=== PATIENT | female | born 1975 | race Caucasian/White ===

== ENCOUNTER 2016-11-14 16:20 | Emergency (ER) | payer MEDICARE, MEDICAID ==
[~2016-11-14] VITALS: Ht 152.4 cm; Wt 113.4 kg
[~2016-11-14 16:20] MED LIST: ALBU0.8322 IH; ALPR.25T; AMIT50TA3 PO; ASPI-892; ASPI-892 PO; ATOM100C PO; BUTA-234 PO; CALC600T12 PO; CEPH500C PO; CLIN-62; CYCL10TA9 PO; DARI7.5T8; DICY20TA10 PO; DICY20TA57 PO; ERGO400C PO; EST.625T; ESTR0.62 PO; FESO4TAB PO; HSC125B15 PO; HYDR-1231 PO; HYDR-3583 PO; HYDR-700; IBP800T PO; IBUP800T26; KCL20TCR PO; LAMO100T; LAMO100T69 PO; LORA-794 PO; LORA10CA PO; LORA10TA7; MECL-106 PO; MECL-124; MNTL10T; MONT10TA24 PO; MOXI400T PO; MTF500T PO; MULT1CAP27 PO; NAPR-243 PO; NAPR-247 PO; NF-ESOM40C; NF-SOLIF5T PO; NITR-65 PO; NST15C; OMEP20TA7 PO; PANT40TA2 PO; PENT100C5 PO; PHEN-633 PO; POTA20LI2 PO; PRM25T PO; SCR1T; SIMV10TA3 PO; SIMV20TA3 PO; TEMA15CA PO; TOPI100T2 PO; TPR100T; TPR25T; TRAM50TA2; VERA120T6 PO; VERA120T84 PO; [UNRECOGNIZED DRUG - CODE] PO; [UNRECOGNIZED DRUG - OTHER]
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
--- NOTE | 2016-11-14 16:54 | Diagnostic Imaging Report ---
PROCEDURE: CT head without contrast. TECHNIQUE: Multiple contiguous axial images were obtained through the brain without the use of intravenous contrast. INDICATION: Hit head on shelf. Pain. COMPARISON: 04/19/2014. FINDINGS: There is again noted encephalomalacia in the occipital lobes, bilaterally. No evidence of intracranial hemorrhage. No mass effect. No extra-axial fluid collection. Ventricles are not dilated. Basal cisterns are clear. CP angles are normal. Bone windows show the mastoid air cells and paranasal sinuses to be well-aerated and clear. No evidence of calvarial fractures. IMPRESSION: 1. Stable appearing encephalomalacia in the occipital lobes, bilaterally. 2. No acute changes have occurred. Dictated by: Dictated on workstation # [id number]
[2016-11-14] MEDS ORDERED: IBUPROFEN 800 MG (MOTRIN) TAB PO STA (17:01)
[2016-11-14 17:25] VITALS: BP 0/0
== END 2016-11-14 17:25 | disposition home or self-care (01) ==
LOC: EDUNIT# 16:20 → ER 16:21
DX: S09.90XA Unspecified injury of head, initial encounter (principal); W20.8XXA Other cause of strike by thrown, projected or falling object, initial encounter; Y99.8 Other external cause status
CPT/HCPCS: 70450; 99283

== ENCOUNTER → 2016-11-24 | Outpatient (CLI) | payer MEDICARE, MEDICAID ==
--- NOTE | 2016-11-24 13:51 | Diagnostic Imaging Report ---
Three views of the left shoulder. INDICATION: Left shoulder pain. FINDINGS: There is mild osteoarthritis in the AC joint with mild superior and inferior osteophytes. The glenohumeral joints appear unremarkable. There is an infusion port projecting over the left hemithorax. No fracture or dislocation seen. IMPRESSION: Mild osteoarthritis with small superior and inferior osteophytes along the AC joint. Dictated by: Dictated on workstation # [id number]
== END ==
LOC: RAD 11:43
PROVIDERS: ATTEND Registered Nurse
DX: M25.512 Pain in left shoulder (principal)
CPT/HCPCS: 73030

== ENCOUNTER → 2017-01-21 | Outpatient (CLI) | payer MEDICARE, MEDICAID ==
--- NOTE | 2017-01-24 09:22 | Diagnostic Imaging Report ---
Bilateral screening mammogram. The current study was also evaluated with a Computer Aided Detection (CAD) system. INDICATION: Screening. No current complaints stated on the questionnaire. COMPARISON: No prior studies are available for comparison. FINDINGS: The breasts are composed of scattered fibroglandular densities. Occasional benign-appearing calcifications are seen. An asymmetry measuring 6 mm in the medial aspect of the right breast is noted. The left breast demonstrates no definite mass, architectural distortion, or suspicious calcification. IMPRESSION: Focal compression view and ultrasound evaluation for medial right breast asymmetry is recommended. ACR BI-RADS Category 0: Incomplete. (Needs additional imaging evaluation). Result letter will be mailed to the patient. Note: At least 10% of breast cancer is not imaged by mammography. Dictated by: Dictated on workstation # [id number]
== END ==
LOC: RAD 12:49
PROVIDERS: ATTEND Family Medicine
DX: Z12.31 Encounter for screening mammogram for malignant neoplasm of breast (principal)
CPT/HCPCS: 77067

== ENCOUNTER 2017-02-16 12:30 | Outpatient (RCR) | payer MEDICARE, MEDICAID ==
[~2017-02-16] VITALS: Ht 152.4 cm; Wt 113.6 kg
[2017-02-16 13:33] VITALS: BP 120/77
== END 2017-05-17 | disposition home or self-care (01) ==
LOC: SDC 12:30
PROVIDERS: ATTEND Family Medicine
DX: Z45.2 Encounter for adjustment and management of vascular access device (principal); N64.89 Other specified disorders of breast
CPT/HCPCS: 96523

== ENCOUNTER → 2017-02-16 | Outpatient (CLI) | payer MEDICARE, MEDICAID ==
--- NOTE | 2017-02-16 13:35 | Diagnostic Imaging Report ---
EXAMINATION: Right breast diagnostic mammogram with a Computer Aided Detection (CAD) system. INDICATION: Asymmetry in the medial aspect of the right breast and pain in the outer aspect. FINDINGS: The asymmetry in the medial aspect of the right breast is evaluated with a focal compression view which demonstrates no underlying abnormality, suggestive of summation artifact of parenchyma. The area of pain in the outer aspect is evaluated with an exaggerated lateral view which demonstrates no definite abnormality. IMPRESSION: No mammographic evidence of malignancy. An ultrasound evaluation is pending. ACR BI-RADS Category 0: Incomplete. (Needs additional imaging evaluation). Result letter will be mailed to the patient. Note: At least 10% of breast cancer is not imaged by mammography. Dictated by: Dictated on workstation # [id number]
--- NOTE | 2017-02-16 13:36 | Diagnostic Imaging Report ---
EXAMINATION: Right breast ultrasound. INDICATION: Right breast pain and medial right breast asymmetry. FINDINGS: The four-quadrants and retroareolar region of the right breast were scanned with no underlying abnormality seen. IMPRESSION: Negative study. Annual screening mammography is recommended. Clinical followup and management as needed for the patient's complaints of lateral right breast pain are also recommended. ACR BI-RADS Category 1: Negative. Dictated by: Dictated on workstation # [id number]
== END ==
LOC: RAD 12:25
PROVIDERS: ATTEND Family Medicine
DX: N64.89 Other specified disorders of breast (principal)
CPT/HCPCS: 76641

== ENCOUNTER 2017-08-11 20:00 | Outpatient (CLI) | payer MEDICARE, MEDICAID ==
[2017-08-12] MEDS ORDERED: FLUC100T PO (14:13)
== END 2017-08-12 06:49 | disposition home or self-care (01) ==
LOC: SLEEP 20:00
PROVIDERS: ATTEND Family Medicine
DX: G47.34 Idiopathic sleep related nonobstructive alveolar hypoventilation (principal); R06.83 Snoring; F39 Unspecified mood [affective] disorder
CPT/HCPCS: 95810

== ENCOUNTER 2017-08-12 12:29 | Emergency (ER) | payer MEDICARE, MEDICAID ==
[~2017-08-12] VITALS: Ht 149.9 cm; Wt 95.3 kg
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
[2017-08-12] MEDS ORDERED: FLUC100T PO (14:13)
[2017-08-12 14:25] VITALS: BP 120/70
--- OUTSIDE RECORDS SUMMARY | 2017-08-12 15:00 | XMS REPORT ---
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
--- OUTSIDE RECORDS SUMMARY | 2017-08-12 15:00 | XMS REPORT ---
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
--- OUTSIDE RECORDS SUMMARY | 2017-08-12 15:00 | XMS REPORT ---
Author Author SHUBHAM HURTADO [facility] [employer] Address Unknown Phone Unavailable Care Team Providers Care Geological Science Teacher Name Role Phone SHUBHAM HURTADO Unavailable Allergies, Adverse Reactions, Alerts Substance Reaction Event Type Sulfamethoxazole Info Not Available Drug Allergy Codeine Sulfate Info Not Available Drug Allergy Clindamycin HCl Info Not Available Drug Allergy Amoxicillin Info Not Available Drug Allergy Problems Problem Type Condition Code Onset Dates Condition Status Assessment Encounter for dental examination Z01.20 Active Assessment Dental examination Z01.20 Active Problem 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 Medications Medication Code System Code Instructions Start Date End Date Status Dosage ibuprofen NDC 0 not defined Decongestant [facility] [address]-98 not defined Verapamil HCl CR [facility] [address]-16 not defined Toviaz [facility] [address]-13 not defined Dicyclomine HCl [facility] [address]-44 not defined Meclizine HCl [facility] [address]-76 not defined Montelukast Sodium [facility] [address]-89 not defined Butalbital-Acetaminophen [facility] [address]-93 not defined Strattera [facility] [address]-78 not defined Ondansetron NDC 0 not defined Lamotrigine [facility] [address]-14 not defined Elmiron [facility] [address]-47 not defined Phenytoin [facility] [address]-27 not defined Omeprazole NDC 0 not defined Trimethobenzamide HCl [facility] [address]-76 not defined EpiPen 2-Eren [facility] [address]-58 not defined Premarin [facility] [address]-99 not defined Meclizine HCl [facility] [address]-06 not defined Topiramate [facility] [address]-95 not defined Cephalexin [facility] [address]-37 not defined Carafate [facility] [address]-85 not defined One-A-Day Bone Strength NDC 0 not defined Simvastatin [facility] [address]-37 not defined Amitriptyline & Diet Manage Pr NDC 0 not defined Calcium [facility] [address]-20 not defined Tramadol HCl NDC 0 not defined Aspirin [facility] [address]-87 not defined Procedures Procedure Coding System Code Date INTRAORL-PERIAPICAL 1 FILM 40441 CPT-4 D0220 Jul 30, 2015 LTD ORAL EVALUATION - PROBLEM FOCUS CPT-4 D0140 Jul 30, 2015 Vital Signs Date/Time: Jul 30, 2015 Blood Pressure Diastolic 54 mmHg Blood Pressure Systolic 102 mmHg Results No Known Results Summary Purpose [employer] Submission
--- OUTSIDE RECORDS SUMMARY | 2017-08-12 15:00 | XMS REPORT ---
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 Assessment Encounter for dental examination Z01.20 Active Problem Encounter for dental examination Z01.20 Active Medications Medication Code System Code Instructions Start Date End Date [place] D[place] [address] not defined [place] [address]-97 not defined Tramadol HCl NDC 0 [place] [address]-77 [place] [address]-03 not defined ibuprofen NDC 0 not defined One-A-Day Bone Strength NDC 0 not defined Procedures Procedure Coding System Code Date PROPHYLAXIS - ADULT CPT-4 D1110 January 05, 2016 TOPICAL FLUORIDE VARNISH CPT-4 D1206 January 05, 2016 PERIODIC ORAL EXAMINATION CPT-4 D0120 January 05, 2016 Vital Signs Date/Time: January 05, 2016 Blood Pressure Diastolic 88 mmHg Blood Pressure Systolic 127 mmHg Cardiac Monitoring Heart Rate 103 bpm Results No Known Results Summary Purpose [employer] Submission
--- OUTSIDE RECORDS SUMMARY | 2017-08-12 15:01 | XMS REPORT ---
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
--- OUTSIDE RECORDS SUMMARY | 2017-08-12 15:01 | XMS REPORT ---
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 Assessment Dental examination Z01.20 Active Problem Encounter for dental examination Z01.20 Active Medications Medication Code System Code Instructions Start Date End Date Status Dosage ibuprofen NDC 0 not defined Tramadol HCl NDC 0 not defined EpiPen 2-Eren [facility] [address]-20 not defined Decongestant [facility] [address] not defined One-A-Day Bone Strength NDC 0 not defined Calcium [facility] [address]-53 not defined Trimethobenzamide HCl [facility] [address]-91 not defined Procedures Procedure Coding System Code Date INTRAORL-PERIAPICAL 1 FILM 25376 CPT-4 D0220 February 24, 2016 LTD ORAL EVALUATION - PROBLEM FOCUS CPT-4 D0140 February 24, 2016 Vital Signs Date/Time: February 24, 2016 Blood Pressure Diastolic 78 mmHg Blood Pressure Systolic 132 mmHg Results No Known Results Summary Purpose [employer] Submission
== END 2017-08-12 14:29 | disposition home or self-care (01) ==
LOC: EDUNIT# 12:29 → ER 12:33
DX: B37.9 Candidiasis, unspecified (principal); F41.9 Anxiety disorder, unspecified; F90.9 Attention-deficit hyperactivity disorder, unspecified type; G43.909 Migraine, unspecified, not intractable, without status migrainosus; J45.909 Unspecified asthma, uncomplicated; Z79.82 Long term (current) use of aspirin; Z90.710 Acquired absence of both cervix and uterus; Z87.19 Personal history of other diseases of the digestive system
CPT/HCPCS: 87070; 87077; 87186; 87205

== ENCOUNTER → 2017-08-16 | Outpatient (CLI) | payer MEDICARE, MEDICAID ==
[~2017-08-16] MED LIST changes: +FLUC100T PO
== END ==
LOC: WOUNDCARE 12:32
PROVIDERS: ATTEND Surgery
DX: L98.9 Disorder of the skin and subcutaneous tissue, unspecified (principal); B37.89 Other sites of candidiasis
CPT/HCPCS: 99213

== ENCOUNTER → 2017-10-04 | Outpatient (CLI) | payer MEDICARE, MEDICAID | LOC: RAD 12:42 | PROVIDERS: ATTEND Internal Medicine Cardiovascular Disease | DX: I73.9 Peripheral vascular disease, unspecified (principal) | CPT/HCPCS: 93923 ==

== ENCOUNTER → 2017-10-04 | Outpatient (CLI) | payer MEDICARE, MEDICAID ==
[~2017-10-04] VITALS: Ht 149.9 cm; Wt 95.4 kg
[2017-10-04 14:31] VITALS: BP 105/77
== END ==
LOC: LAB 12:44
PROVIDERS: ATTEND Nurse Practitioner Community Health
DX: F39 Unspecified mood [affective] disorder (principal); F90.0 Attention-deficit hyperactivity disorder, predominantly inattentive type; K58.2 Mixed irritable bowel syndrome
CPT/HCPCS: 36415; 36591; 80185

== ENCOUNTER 2017-10-14 05:31 | Outpatient (CLI) | payer MEDICARE, MEDICAID ==
[~2017-10-14] VITALS: Ht 149.9 cm; Wt 95.4 kg
[2017-10-14] MEDS ORDERED: SIMV20TA3 PO (11:57)
[2017-10-14] MEDS ORDERED: TOPI100T11 PO (11:57)
[2017-10-14] MEDS ORDERED: ATOM100C PO (11:57)
[2017-10-14] MEDS ORDERED: VERA120T6 PO (11:57)
[2017-10-14] MEDS ORDERED: LAMO100T PO (11:57)
[2017-10-14] MEDS ORDERED: ASPI-999 PO (11:57)
[2017-10-14] MEDS ORDERED: PHEN100C11 PO (11:57)
[2017-10-14] MEDS ORDERED: DICY20TA10 PO (11:57)
[2017-10-14] MEDS ORDERED: PANT40TA3 PO (11:57)
[2017-10-14] MEDS ORDERED: PENT100C3 PO (11:57)
[2017-10-14] MEDS ORDERED: LORA10TA7 PO (11:57)
[2017-10-14] MEDS ORDERED: MONT10TA24 PO (11:57)
[2017-10-14] MEDS ORDERED: ESTR0.5T PO (11:57)
== END 2017-10-14 12:00 ==
LOC: PREOP 05:31
PROVIDERS: ATTEND Surgery
DX: Z01.818 Encounter for other preprocedural examination (principal); I87.2 Venous insufficiency (chronic) (peripheral)

== ENCOUNTER 2017-10-19 08:22 | Day surgery (SDC) | payer MEDICARE, MEDICAID ==
[~2017-10-19] VITALS: Ht 149.9 cm; Wt 95.4 kg
--- NOTE | 2017-10-19 07:55 | History & Physicial ---
History of Present Illness History of Present Illness Reason for visit/HPI To undergo placement of a new infusaport and have the non-functioning one removed Date of Admission 10/19/17 Date Seen by Provider: Oct 19, 2017 Time Seen by Provider: 07:53 I consulted on this patient on 10/19/17 07:52 Attending Physician Iva Lal MD Admitting Physician [facility] Consult Allergies and Home Medications Allergies Coded Allergies: latex (Verified Allergy, Mild, RASH, 10/14/17) Sulfa (Sulfonamide Antibiotics) (Verified Allergy, Unknown, 10/14/17) amoxicillin (Verified Allergy, Unknown, 10/14/17) atenolol (Verified Allergy, Unknown, 10/14/17) azithromycin (Verified Allergy, Unknown, 10/14/17) cephalexin (Verified Allergy, Unknown, 10/14/17) chocolate flavor (Verified Allergy, Unknown, 10/14/17) clindamycin (Verified Allergy, Unknown, 10/14/17) codeine (Verified Allergy, Unknown, 10/14/17) dextromethorphan (Verified Allergy, Unknown, 10/14/17) divalproex sodium (Verified Allergy, Unknown, 10/14/17) estradiol (Verified Allergy, Unknown, 10/14/17) guaifenesin (Verified Allergy, Unknown, 10/14/17) levofloxacin (Verified Allergy, Unknown, 10/14/17) nitrofurantoin (Verified Allergy, Unknown, 10/14/17) promethazine (Verified Allergy, Unknown, 10/14/17) pseudoephedrine (Verified Allergy, Unknown, 10/14/17) tetracycline (Verified Allergy, Unknown, 10/14/17) Home Medications Aspirin 81 Mg Tab.chew, 81 MG PO DAILY, (Reported) Atomoxetine 100 Mg Capsule, 100 MG PO DAILY, (Reported) Calcium Carbonate 600 Mg Tablet, 600 MG PO DAILY, (Reported) Dicyclomine HCl 20 Mg Tablet, 40 MG PO QID, (Reported) Estradiol 0.5 Mg Tablet, 0.5 MG PO DAILY, (Reported) Lamotrigine 100 Mg Tablet, 100 MG PO BID, (Reported) Loratadine 10 Mg Tablet, 10 MG PO DAILY, (Reported) Meclizine HCl 25 Mg Tablet, 25 MG PO TID, (Reported) Montelukast Sodium 10 Mg Tablet, 10 MG PO DAILY, (Reported) Pantoprazole Sodium 40 Mg Tablet.dr, 40 MG PO DAILY, (Reported) Pentosan Polysulfate Sodium 100 Mg Capsule, 100 MG PO BID, (Reported) Phenytoin Sodium Extended 100 Mg Capsule, 300 MG PO BID, (Reported) Simvastatin 20 Mg Tablet, 20 MG PO DAILY, (Reported) Solifenacin Succinate 5 Mg Tablet, 5 MG PO DAILY, (Reported) Topiramate 100 Mg Tablet, 100 MG PO BID, (Reported) Verapamil HCl 120 Mg Tablet, 120 MG PO DAILY, (Reported) Past Awirqox-Ryanha-Ayfylh Hx Patient Social History Recent Hopitalizations: No Immunizations Up To Date Tetanus Booster (TDap): More than 5yrs Date of Influenza Vaccine: Jul 22, 2017 Seasonal Allergies Seasonal Allergies: Yes Surgeries Yes (D&C, HIATAL HERNIA, L-PORT, LEFT FOOT X5, RIGHT FOOT X6) Hysterectomy Respiratory Yes (DROWNED AN INFANT, ASTHMA) Cardiovascular Yes (TACHYCARDIA) Hypertension Neurological Yes Headaches /Migraines, Seizure Disorder Reproductive System Hx Reproductive Disorders: Yes Sexually Transmitted Disease: No HIV/AIDS: No MANAGER NET History: Hysterectomy Genitourinary No Gastrointestinal Yes Chronic Diarrhea, Hepatitis, Irritable Bowel Musculoskeletal No Arthritis, Chronic Back Pain Endocrine History of Endocrine Disorders: No HEENT Loss of Vision: Bilateral Hearing Impairment: Denies Cancer No Psychosocial History of Psychiatric Problem: Yes Behavioral Health Disorders: ADD/ADHD, Anxiety Integumentary History of Skin or Integumenta: No Blood Transfusions History of Blood Disorders: No Adverse Reaction to a Blood Tr: No Family Medical History Significant Family History: No Pertinent Family Hx Constitutional: no symptoms reported Respiratory: no symptoms reported Cardiovascular: palpitations Gastrointestinal: constipation Genitourinary: no symptoms reported Skin: no symptoms reported Psychiatric/Neurological: Anxiety, Emotional Problems Physical Exam Vital Signs Capillary Refill : General Appearance: Anxious HEENT: Normal ENT Inspection Neck: Normal Inspection Respiratory: Lungs Clear Cardiovascular: Regular Rate, Rhythm Extremity: Normal Inspection Neurologic/Psychiatric: Alert, Oriented x3 Skin: Warm/Dry Assessment/Plan Assessment and Plan Lady with a non-functioning port. For replacement Problems: IVA LAL MD Oct 19, 2017 7:55 am
[~2017-10-19 08:22] MED LIST changes: +ASPI-999 PO; +ESTR0.5T PO; +LAMO100T PO; +LORA10TA7 PO; +PANT40TA3 PO; +PENT100C3 PO; +PHEN100C11 PO; +TOPI100T11 PO
[2017-10-19 08:33] VITALS: BP 129/84
[2017-10-19] MEDS ORDERED: LACTATED RINGERS 1,000 ML IV PRN (08:42)
[2017-10-19] MEDS ORDERED: LIDOCAINE/EPI 1%-1:200,000 (XYLOCAINE) 10 ML VIAL ONE (08:54)
[2017-10-19] MEDS ORDERED: HEParin (CENTRAL IV FLUSH) 500 UNIT/5 ML SYR ONE (08:55)
[2017-10-19] MEDS ORDERED: 0.9% SODIUM CHLORIDE PF INJ 20 ML VIAL ONE (08:55)
[2017-10-19] MEDS ORDERED: BUPIVACAINE 0.25% 30 ML (SENSORCAINE) VIAL ONE (08:55)
--- NOTE | 2017-10-19 08:55 | Progress Note-Pre Operative ---
Pre-Operative Progress Note H&P Reviewed The H&P was reviewed, patient examined and no changes noted. Date Seen by Provider: Oct 19, 2017 Time Seen by Provider: 08:02 Date H&P Reviewed: Oct 19, 2017 Time H&P Reviewed: 08:54 Pre-Operative Diagnosis: Nonfunctioning port IVA LAL MD Oct 19, 2017 8:55 am
[2017-10-19] MEDS ORDERED: VANCOMYCIN 1000 MG/VIAL ONE (09:08)
[2017-10-19] MEDS ORDERED: NS (IVPB) 250 ML ONE (09:08)
[2017-10-19] MEDS ORDERED: fentaNYL INJECTION 100 MCG/2 ML AMP ONE (09:18)
[2017-10-19] MEDS ORDERED: ONDANSETRON 4 MG/2 ML (SDV) Z0FRAN ONE (09:18)
[2017-10-19] MEDS ORDERED: proPOfol 200 MG/20 ML (DIPRIVAN) VIAL IV ONE (09:18)
[2017-10-19] MEDS ORDERED: LIDOCAINE PF 2% 5 ML (XYLOCAINE) VIAL ONE (09:18)
[2017-10-19] MEDS ORDERED: MIDAZOLAM 2 MG/2 ML (VERSED) VIAL ONE (09:18)
[2017-10-19] MEDS ORDERED: SEVOFLURANE (ULTANE) 15 ML INHAL SOLN ONE ×3 (09:18→10:41)
[2017-10-19] MEDS ORDERED: VANCOMYCIN 1 GM/NS 250 ML IVPB IV ONE ×2 (09:30)
[2017-10-19] MEDS ORDERED: CATHETER FLUSH 10 ML SYR IV PRN (09:30)
[2017-10-19] MEDS ORDERED: TRAM50TA2 PO (10:41)
--- NOTE | 2017-10-19 10:42 | Discharge Inst-Simple/Standard ---
Discharge Inst-Standard Discharge Medications New, Converted or Re-Newed RX: RX on Chart Patient Instructions/Follow Up Plan of Care/Instructions/FU: Dressings off in 48 hours. May use the port Activity as Tolerated: Yes Discharge Diet: No Restrictions IVA LAL MD Oct 19, 2017 10:42 am
[2017-10-19] MEDS ORDERED: ONDANSETRON 4 MG/2 ML (SDV) Z0FRAN IVP PRN (11:15)
[2017-10-19] MEDS ORDERED: morphine INJ 10 MG/ML 1ML (SYR OR VIAL) IVP PRN (11:15)
[2017-10-19] MEDS ORDERED: MEPERIDINE (DEMEROL) INJ 50 MG/ML IVP PRN (11:15)
[2017-10-19] MEDS ORDERED: morphine INJ 10 MG/ML 1ML (SYR OR VIAL) ONE (11:16)
[2017-10-19 11:45] VITALS: BP 136/99
[2017-10-19 12:15] VITALS: BP 136/89
--- NOTE | 2017-10-19 12:22 | Diagnostic Imaging Report ---
INDICATION: Undergoing central line placement. FINDINGS: Fluoroscopy utilized by Dr. Walton for placement of a central line. Single intraprocedure image over the chest demonstrates a right IJ Hggvcy-r-Kpit catheter to be present. At the apex, there is suggestion of slight acute angulation. Caliber change in the catheter is not excluded. Tip terminates over the right paramediastinal region. Fluoroscopy time: 42 seconds IMPRESSION: Fluoroscopy utilized for placement of a right IJ Ialyqb-t-Ftia catheter. If further assessment is desired, post procedure chest radiograph recommended. Dictated by: Dictated on workstation # [id number]
[2017-10-19 12:45] VITALS: BP 133/86
--- NOTE | 2017-10-19 13:21 | Operative Report ---
Operative Report Date of Procedure/Surgery Oct 19, 2017 Surgeon (s) IVA LAL MD Supervisor Electric (s): N/A Post-Operative Diagnosis Same Procedure Performed Zjxneo-w-Lluk placement Removal of nonfunctioning port Description of Procedure Anesthesia Type: General Estimated blood loss (mL): Minimal Specimen(s) collected/removed none Description of the Procedure Indication for the procedure: This lady has poor venous access, being managed with a Groshong port placed via the left subclavian vein without 9 years ago. This device became nonfunctional and therefore replacing with a new Infuse-a- Port was felt to be reasonable. Informed consent was obtained after reviewing the procedures and complications of hematoma, further malfunction requiring replacement and bacteremia. Description of the procedure: She was placed supine on the operating table and general anesthesia induced. A gram of vancomycin was administered intravenously as prophylaxis against(allergy to cephalosporins). Her neck and upper chest were prepared and draped in the usual sterile manner. Right internal jugular vein was localized using a 10 MHz ultrasound probe and a floppy guidewire introduced into the heart, under fluoroscopy. A subcutaneous pocket was created over the infraclavicular fossa and the Nima catheter brought into the neck, in a retrograde fashion. It was then advanced into the heart, under fluoroscopy, using the peel-away sheath. The catheter was then pulled back to the superior vena cava under fluoroscopy and connected to the Udxota-l-Enid, that had been primed with heparinized saline. I was able to aspirate and flush the system without any difficulty. The port was then secured to the pectoralis tissue with 2-0 Prolene sutures. Incisions were closed using 3-0 Vicryl for the subcutaneous tissue and 4-0 Vicryl for skin, in a subcuticular fashion. A combination of 1 percent lidocaine with epinephrine and 0.5 percent Marcaine was used around the incisions, both preemptively and at the conclusion of the operation. Removal of the nonfunctioning port: A secondary incision was made along the left infraclavicular fossa and the nonfunctioning port removed without risking air embolism. The incision was closed using 3-0 Vicryl for the subcutaneous tissue and 4-0 Vicryl for skin, in a subcuticular fashion. Findings of the Procedure see op report Allergies and Home Medications Allergies Coded Allergies: latex (Verified Allergy, Mild, RASH, 10/14/17) Sulfa (Sulfonamide Antibiotics) (Verified Allergy, Unknown, 10/14/17) amoxicillin (Verified Allergy, Unknown, 10/14/17) atenolol (Verified Allergy, Unknown, 10/14/17) azithromycin (Verified Allergy, Unknown, 10/14/17) cephalexin (Verified Allergy, Unknown, 10/14/17) chocolate flavor (Verified Allergy, Unknown, 10/14/17) clindamycin (Verified Allergy, Unknown, 10/14/17) codeine (Verified Allergy, Unknown, Pt has received Morphine & Hydrocodone , 10/19/17) dextromethorphan (Verified Allergy, Unknown, 10/14/17) divalproex sodium (Verified Allergy, Unknown, 10/14/17) estradiol (Verified Allergy, Unknown, 10/14/17) guaifenesin (Verified Allergy, Unknown, 10/14/17) levofloxacin (Verified Allergy, Unknown, 10/14/17) nitrofurantoin (Verified Allergy, Unknown, 10/14/17) promethazine (Verified Allergy, Unknown, 10/14/17) pseudoephedrine (Verified Allergy, Unknown, 10/14/17) tetracycline (Verified Allergy, Unknown, 10/14/17) Home Medications Aspirin 81 Mg Tab.chew, 81 MG PO DAILY, (Reported) Atomoxetine 100 Mg Capsule, 100 MG PO DAILY, (Reported) Calcium Carbonate 600 Mg Tablet, 600 MG PO DAILY, (Reported) Dicyclomine HCl 20 Mg Tablet, 40 MG PO QID, (Reported) Estradiol 0.5 Mg Tablet, 0.5 MG PO DAILY, (Reported) Lamotrigine 100 Mg Tablet, 100 MG PO BID, (Reported) Loratadine 10 Mg Tablet, 10 MG PO DAILY, (Reported) Meclizine HCl 25 Mg Tablet, 25 MG PO TID, (Reported) Montelukast Sodium 10 Mg Tablet, 10 MG PO DAILY, (Reported) Pantoprazole Sodium 40 Mg Tablet.dr, 40 MG PO DAILY, (Reported) Pentosan Polysulfate Sodium 100 Mg Capsule, 100 MG PO BID, (Reported) Phenytoin Sodium Extended 100 Mg Capsule, 300 MG PO BID, (Reported) Simvastatin 20 Mg Tablet, 20 MG PO DAILY, (Reported) Solifenacin Succinate 5 Mg Tablet, 5 MG PO DAILY, (Reported) Topiramate 100 Mg Tablet, 100 MG PO BID, (Reported) Tramadol HCl 50 Mg Tablet, 100 MG PO Q12H PRN for PAIN-MODERATE TO SEVERE, #20 Prescribed by: IVA LAL on 10/19/17 1041 Verapamil HCl 120 Mg Tablet, 120 MG PO DAILY, (Reported) IVA LAL MD Oct 19, 2017 1:21 pm
[2017-10-19 13:58] VITALS: BP 133/86
== END 2017-10-19 13:58 | disposition home or self-care (01) ==
LOC: SDC 08:22
PROVIDERS: ATTEND Surgery
DX: Z45.2 Encounter for adjustment and management of vascular access device (principal); I10 Essential (primary) hypertension; E78.5 Hyperlipidemia, unspecified; J45.909 Unspecified asthma, uncomplicated; K21.9 Gastro-esophageal reflux disease without esophagitis; G43.909 Migraine, unspecified, not intractable, without status migrainosus; G40.909 Epilepsy, unspecified, not intractable, without status epilepticus; F90.9 Attention-deficit hyperactivity disorder, unspecified type; F41.9 Anxiety disorder, unspecified; Z79.82 Long term (current) use of aspirin; Z79.899 Other long term (current) drug therapy; Z88.1 Allergy status to other antibiotic agents; Z88.2 Allergy status to sulfonamides; Z88.5 Allergy status to narcotic agent; Z88.8 Allergy status to other drugs, medicaments and biological substances
CPT/HCPCS: 87081

== ENCOUNTER 2018-02-16 11:18 | Outpatient (RCR) | payer MEDICARE, MEDICAID ==
[2017-11-21 11:00] VITALS: BP 123/91
[2017-12-15 12:49] VITALS: BP 127/88
[2018-01-13 14:50] VITALS: BP 125/92
[~2018-02-16] VITALS: Ht 149.9 cm; Wt 95.4 kg
[~2018-02-16 11:18] MED LIST changes: +CATHETER FLUSH 10 ML SYR IV PRN; +HEParin (CENTRAL IV FLUSH) 500 UNIT/5 ML SYR IV ONE; +HEParin (CENTRAL IV FLUSH) 500 UNIT/5 ML SYR ONE; +TRAM50TA2 PO
[2018-02-16] MEDS ORDERED: HEParin (CENTRAL IV FLUSH) 500 UNIT/5 ML SYR ONE (11:37)
[2018-02-16 12:00] VITALS: BP 119/87
== END 2018-02-19 | disposition home or self-care (01) ==
LOC: SDC 11:18
PROVIDERS: ATTEND Nurse Practitioner Community Health
DX: R56.9 Unspecified convulsions (principal)
CPT/HCPCS: 96523

== ENCOUNTER → 2018-03-06 | Outpatient (CLI) | payer MEDICARE, MEDICAID ==
[~2018-03-06] MED LIST changes: -CATHETER FLUSH 10 ML SYR IV PRN; -HEParin (CENTRAL IV FLUSH) 500 UNIT/5 ML SYR IV ONE; -HEParin (CENTRAL IV FLUSH) 500 UNIT/5 ML SYR ONE
== END ==
LOC: CARD 10:18
PROVIDERS: ATTEND Internal Medicine Cardiovascular Disease
DX: R00.2 Palpitations (principal)
CPT/HCPCS: 93225; 93226

== ENCOUNTER 2018-03-10 12:22 | Emergency (ER) | payer MEDICARE, MEDICAID ==
[~2018-03-10] VITALS: Ht 149.9 cm; Wt 93.0 kg
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
--- NOTE | 2018-03-10 13:57 | Diagnostic Imaging Report ---
PROCEDURE: CT head and CT cervical spine without contrast. TECHNIQUE: Multiple contiguous axial images were obtained through the brain and cervical spine without the use of intravenous contrast. Sagittal and coronal reformations through the cervical spine were then performed. INDICATION: Fall. Hit back of head. COMPARISON: CT head without contrast 11/14/2016. FINDINGS: CT head: Stable regions of encephalomalacia involving the left parietal and bilateral occipital lobes. No CT evidence of an acute infarction. No intracranial hemorrhage, mass effect, hydrocephalus or extra-axial fluid collections. Osseous structures are intact. The visualized paranasal sinuses and mastoids are clear. CT cervical spine: Normal alignment. Vertebral body heights preserved. There are only mild scattered degenerative endplate changes and facet arthropathy. No evidence of high-grade neural impingement. No fractures. Partially visualized right IJ CVC. The paravertebral soft tissues are otherwise unremarkable. The lung apices are clear. IMPRESSION: No acute intracranial or cervical spine CT findings. Dictated by: Dictated on workstation # [id number]
--- NOTE | 2018-03-10 13:59 | Diagnostic Imaging Report ---
PROCEDURE: CT lumbar spine without contrast. TECHNIQUE: Multiple contiguous axial images were obtained through the lumbar spine without the use of intravenous contrast. Sagittal and coronal reformations were then performed. INDICATION: Fall and back pain. COMPARISON: No prior studies are available for comparison. FINDINGS: Curvature and alignment of the lumbar spine is within normal limits. Vertebral body heights are maintained. No acute compression fracture is seen. There is degenerative disc disease at the T11-T12 and T12-L1 levels with disc space narrowing and marginal spurring. There is also mild L1-L2 degenerative disc disease. Remaining lumbar discs show normal stature. Note is made of bilateral pars defects at the L5-S1 level. However, no spondylolisthesis is detected. The paraspinous tissues are unremarkable. IMPRESSION: Chronic changes, as described. No acute bony abnormality is identified. Dictated by: Dictated on workstation # [id number]
[2018-03-10 14:28] VITALS: BP 138/97
== END 2018-03-10 14:28 | disposition home or self-care (01) ==
LOC: EDUNIT# 12:22 → ER 12:23
DX: S00.03XA Contusion of scalp, initial encounter (principal); S30.0XXA Contusion of lower back and pelvis, initial encounter; R40.2142 Coma scale, eyes open, spontaneous, at arrival to emergency department; R40.2252 Coma scale, best verbal response, oriented, at arrival to emergency department; R40.2362 Coma scale, best motor response, obeys commands, at arrival to emergency department; J45.909 Unspecified asthma, uncomplicated; I10 Essential (primary) hypertension; G43.909 Migraine, unspecified, not intractable, without status migrainosus; F90.9 Attention-deficit hyperactivity disorder, unspecified type; F41.9 Anxiety disorder, unspecified; G40.909 Epilepsy, unspecified, not intractable, without status epilepticus; M54.5 Low back pain; Z88.2 Allergy status to sulfonamides; Z88.5 Allergy status to narcotic agent; Z88.8 Allergy status to other drugs, medicaments and biological substances; Z88.1 Allergy status to other antibiotic agents; Z79.82 Long term (current) use of aspirin; Z87.19 Personal history of other diseases of the digestive system; Z90.710 Acquired absence of both cervix and uterus; W10.8XXA Fall (on) (from) other stairs and steps, initial encounter; Y92.241 Library as the place of occurrence of the external cause
CPT/HCPCS: 70450; 72125; 72131

== ENCOUNTER 2018-06-01 09:44 | Outpatient (RCR) | payer MEDICARE, MEDICAID ==
[2018-03-23 11:15] VITALS: BP 121/93
[2018-04-20 12:30] VITALS: BP 120/100
[~2018-06-01] VITALS: Ht 149.9 cm; Wt 93.0 kg
[~2018-06-01 09:44] MED LIST changes: +HEParin (CENTRAL IV FLUSH) 500 UNIT/5 ML SYR IV ONE; +HEParin (CENTRAL IV FLUSH) 500 UNIT/5 ML SYR ONE
[2018-06-01] MEDS ORDERED: CATHETER FLUSH 10 ML SYR IV PRN (10:00)
[2018-06-01] MEDS ORDERED: HEParin (CENTRAL IV FLUSH) 500 UNIT/5 ML SYR ONE (10:00)
[2018-06-01] MEDS ORDERED: HEParin (CENTRAL IV FLUSH) 500 UNIT/5 ML SYR IV ONE (10:00)
[2018-06-01 10:20] VITALS: BP 132/75
== END 2018-06-21 | disposition home or self-care (01) ==
LOC: SDC 09:44
PROVIDERS: ATTEND Nurse Practitioner Community Health
DX: R56.9 Unspecified convulsions (principal); Z45.2 Encounter for adjustment and management of vascular access device
CPT/HCPCS: 96523

== ENCOUNTER 2018-06-15 05:41 | Outpatient (CLI) | payer MEDICARE, MEDICAID ==
[~2018-06-15] VITALS: Ht 149.9 cm; Wt 93.0 kg
[~2018-06-15 05:41] MED LIST changes: -HEParin (CENTRAL IV FLUSH) 500 UNIT/5 ML SYR IV ONE; -HEParin (CENTRAL IV FLUSH) 500 UNIT/5 ML SYR ONE
== END 2018-06-15 09:40 | disposition home or self-care (01) ==
LOC: PREOP 05:41
PROVIDERS: ATTEND Surgery
DX: Z01.818 Encounter for other preprocedural examination (principal)

== ENCOUNTER 2018-06-16 09:17 | Day surgery (SDC) | payer MEDICARE, MEDICAID ==
[~2018-06-16] VITALS: Ht 149.9 cm; Wt 93.0 kg
--- OUTSIDE RECORDS SUMMARY | 2018-06-16 09:22 | XMS REPORT ---
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 Active 747695240 Problem Irritable bowel syndrome with both constipation and diarrhea K58.2 Active 54392948 Problem Attention deficit hyperactivity disorder (ADHD), predominantly inattentive type F90.0 Active 80227996 Problem Mood disorder F39 Active 83800837 Problem Environmental allergies Z91.09 Active 830712874 Problem Postconcussion syndrome F07.81 Active 23711553 Problem Mild intellectual disability F70 Active 87422708 Problem Depression, unspecified depression type F32.9 Active 02083771 Problem Unsteady gait R26.81 Active 22274740 Problem 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 Active 02366463 ALLERGIES No Information ENCOUNTERS Encounter Location Date Diagnosis [facility] [address], [place] [address] Jun, [facility] [address], [place] [address] May, [facility] [address], [place] [address] May, [facility] [address] [address] Apr, Environmental allergies Z91.09 [facility] [id number], [place] [address] Apr, [facility] [id number] [place] [address]756- 3316 Apr, Nail hypertrophy L60.2 and Self-care deficit for grooming and hygiene Z74.1 [facility] [id number] [place] [address] 27849- 4479 Apr, Environmental allergies Z91.09 [facility] [id number] [place] [address] 41719- 8810 Apr, [facility] [address] [address] Apr, [facility] [address] [address] Apr, [facility] [address] [address]- [address] Apr, Environmental allergies Z91.09 [facility] [address] [address]- [address] Apr, [facility] [id number] [place] [address] 96470- 9377 Apr, Anxiety F41.9 [place] [address] [address]- [address] Mar, Nail hypertrophy L60.2 and Self-care deficit for hygiene R46.0 [place] [id number] [place] [address] 02829- 4851 Mar, [facility] [id number] [place] [address] 49551- 0017 Mar, [facility] [id number] [place] [address] 32246- 7934 Mar, Anxiety F41.9 ; Mood disorder F39 and Dysfunction of both eustachian tubes H69.83 [facility] [id number] [place] [address] 24800- 9900 Mar, Seizures R56.9 [place] [address] [place] [address] Mar, Folliculitis L73.9 [facility] [id number] [place] [address] 31709- 1371 Mar, Mild intellectual disability F70 ; Depression, unspecified depression type F32.9 and Anxiety F41.9 [facility] [id number] [place] [address] 36994- 4797 Mar, Seizures R56.9 and Folliculitis L73.9 [facility] [id number] [place] [address] 39858- 6237 Feb, [facility] [address] [address]- [address] Feb, Postconcussion syndrome F07.81 and Folliculitis L73.9 [facility] [id number] [place] [address] 35076- 2461 Feb, Postconcussion syndrome F07.81 [facility] [id number] [place] [address] 69678- 7968 Feb, [facility] [address] [id number] Feb, [facility] [id number] [place] [address] [id number] Feb, Dental caries extending into dentin K02.62 [facility] [id number] [place] [address] 24237- 3264 January, [facility] [id number] [place] [address] 72478- 4693 January, [facility] [id number] [place] [address] 19593- 7209 January, Onychomycosis B35.1 [facility] [id number] [place] [address] [id number] January, Dental caries extending into dentin K02.62 [facility] [id number] [place] [address] 67825- 9775 Dec, [facility] [address] [address]61- 9145 Dec, [facility] [id number] [place] [address] 18296- 3653 Dec, [facility] [address] [address]83- 7079 Dec, Mild intellectual disability F70 ; Depression, unspecified depression type F32.9 ; Anxiety F41.9 and BMI 45.0-49.9, adult Z68.42 [facility] [address] 82998- 4459 Dec, Folliculitis L73.9 [facility] [address] 47017- 3907 Dec, Mild intellectual disability F70 ; Unsteady gait R26.81 and Generalized weakness R53.1 [facility] [id number] [place] [address] [id number] 15 Nov, 2017 [facility] [address] 26949- 47[address] Nov, [facility] [id number] [place] [address] 10386- 7418 Nov, Folliculitis L73.9 ; Tinea corporis B35.4 and Onychomycosis B35.1 [facility] [id number] [place] [address] [id number] Oct, [facility] [address] [address]- [address]24 Oct, Mood disorder F39 [facility] [id number] [place] [address] 45169- 4397 Oct, [facility] [address] [address] Oct, Left hip pain M25.552 and Muscle spasm M62.838 [facility] [address] [id number] Oct, [facility] [id number] [place] [address] 42860- 2569 Oct, 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 ; Anxiety F41.9 ; Onychomycosis B35.1 ; BMI 40.0-44.9, adult Z68.41 and Alkaline phosphatase elevation R74.8 [facility] [id number] [place] [address] 69263- 3370 Sep, Mild intellectual disability F70 [facility] [id number] [place] [address] 91609- 8453 Sep, [facility] [id number] [place] [address] 60774- 4615 Sep, Alkaline phosphatase elevation R74.8 [facility] [id number] [place] [address] 18836- 4894 Sep, Alkaline phosphatase elevation R74.8 [facility] [id number] [place] [address] 97441- 8820 Sep, Mood disorder F39 ; Attention deficit hyperactivity disorder (ADHD), predominantly inattentive type F90.0 ; Irritable bowel syndrome with both constipation and diarrhea K58.2 and Seizures R56.9 [facility] [id number] [place] [address] 28045- 7892 Sep, Mild intellectual disability F70 ; Depression, unspecified depression type F32.9 ; Anxiety F41.9 and BMI 40.0-44.9, adult Z68.41 [facility] [id number] [place] [address] 68329- 2523 Sep, [facility] [id number] [place] [address] 69096- 5680 Sep, [facility] [address] [place] [address]- 5897 Sep, [facility] [address], [place] [address] Sep, [facility] [address], [place] [address] Sep, [facility] [address] [place] [address] [id number] Aug, Encounter for dental examination and cleaning without abnormal findings Z01.20 [facility] [id number] [place] [address] [id number] Aug, Dental examination Z01.20 [facility] [id number] [place] [address] 49863- 9454 Aug, [facility] [id number] [place] [address] 66782- 7690 Aug, Depression, unspecified depression type F32.9 ; Mild intellectual disability F70 and Anxiety F41.9 [facility] [address], [place] [address] 08 Aug, 2017 Mood disorder F39 ; Attention deficit hyperactivity disorder (ADHD), predominantly inattentive type F90.0 ; Irritable bowel syndrome with both constipation and diarrhea K58.2 and Seizures R56.9 [facility] [address], [place] [address]- 7[address] Aug, Depression, unspecified depression type F32.9 ; Mild intellectual disability F70 and Anxiety F41.9 [facility] [address], [place] [address]- 0882 Aug, [facility] [id number] [place] [address] [id number] Jul, Dental examination Z01.20 and Dental caries K02.9 [facility] [address] [address] Jun, Unspecified mood [affective] disorder F39 and 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 [facility] [address] [id number] [id number] May, Encounter for dental examination and cleaning without abnormal findings Z01.20 [facility] [address] [id number] [id number] Mar, Dental examination Z01.20 [facility] [id number] [place] [address] [id number] Sep, Dental examination Z01.20 [facility] [id number] [place] [address] [id number] January, Dental examination Z01.20 [facility] [id number] [place] [address] [id number] Dec, Encounter for dental examination Z01.20 [facility] [id number] [place] [address] [id number] Dec, Dental examination Z01.20 [facility] [id number] [place] [address] [id number] Nov, Dental examination Z01.20 [facility] [id number] [place] [address] [id number] Jul, Encounter for dental examination Z01.20 and Dental examination Z01.20 [facility] [id number] [place] [address] [id number] Apr, Dental examination V72.2 [facility] [address] [id number] [id number] Mar, Dental examination V72.2 [facility] [address] [id number] [address] January, [facility] [id number] [place] [address] 16156- 2406 January, [facility] [id number] [address]- 2701 January, [facility] [id number] [place] [address] 40063- 8996 January, [facility] [address] [facility] [id number] [place] [address]- [address] Jul, IMMUNIZATIONS No Known Immunizations SOCIAL HISTORY Never Assessed REASON FOR VISIT med refill PLAN OF CARE VITAL SIGNS MEDICATIONS Medication Instructions Dosage Frequency Start Date End Date Duration Status Patanol 0.1 % Ophthalmic Twice a day 1 drop into each eye 12h Apr, 30 days Active RESULTS No Results PROCEDURES No Known procedures INSTRUCTIONS MEDICATIONS ADMINISTERED No Known Medications MEDICAL (GENERAL) HISTORY Type Description Date Medical History Diabetes Medical History HEP A Medical History Seizures Medical History Back trouble Medical History ADHD Medical History hx of abnormal EKG Medical History strabismus Medical History asthma Medical History hyperlipidemia Medical History hx of hepatitis A Medical History sleep apnea Medical History hx tachycardia Medical History seasonal allergies Surgical History Psychaitric Surgical History R Foot Surgery X 6 Surgical History L foot surgery X 8 Surgical History DNC Surgical History Appendix Surgical History Gallbladder 2000 Surgical History Hysterectomy with oopherectomy 2004 Surgical History tonsillectomy 1977 Surgical History History of stress test August 02, 2013, catheter placement in coronary artery July 2008, Surgical History hx of left chest port Surgical History hernia 2002 Surgical History D&C 2003 Surgical History foot surgery 2005 Surgical History Port replaced 2018 Hospitalization History at least 5 inpatient treatments, last one in 2005 2005 and before
--- OUTSIDE RECORDS SUMMARY | 2018-06-16 09:22 | XMS REPORT ---
Author Author dereckJAMIE CHEN [facility] Address [address] [place] [address] Care Team Providers Care Senior Application Programmer Name Role Phone ortegaJAMIE Romero Unavailable PROBLEMS Type Condition ICD9-CM Code [id number] Code Onset Dates Condition Status SNOMED Code Problem Unspecified mood [affective] disorder F39 Active 45688986 Problem Anxiety F41.9 Active 19291431 Problem 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 Active 904200652 Problem Irritable bowel syndrome with both constipation and diarrhea K58.2 Active 31743228 Problem Attention deficit hyperactivity disorder (ADHD), predominantly inattentive type F90.0 Active 35440759 Problem Mood disorder F39 Active 67582908 Problem Environmental allergies Z91.09 Active 039188817 Problem Postconcussion syndrome F07.81 Active 26571626 Problem Mild intellectual disability F70 Active 66938045 Problem Depression, unspecified depression type F32.9 Active 91822493 Problem Unsteady gait R26.81 Active 97257538 Problem 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 Active 15295161 ALLERGIES Substance Reaction Event Type Date Status Zithromax Unknown Drug Allergy Feb, Active Promethazine HCl n/v Drug Allergy Feb, Active Macrobid n/v Drug Allergy Feb, Active Tetracycline HCl Unknown Drug Allergy Feb, Active Sulfamethoxazole dizziness Drug Allergy Feb, Active [place] Carbonate Unknown Drug Allergy Feb, Active Levaquin n/v Drug Allergy Feb, Active Keflex n/v Drug Allergy Feb, Active Estradiol Unknown Drug Allergy Feb, Active Depakote n/v Drug Allergy Feb, Active Codeine Sulfate Unknown Drug Allergy Feb, Active Codeine Phosphate n/v Drug Allergy Feb, Active Clindamycin HCl Unknown Drug Allergy Feb, Active Amoxicillin anaphylaxis and n/v Drug Allergy Feb, Active latex Unknown Non Drug Allergy Feb, Active ENCOUNTERS Encounter Location Date Diagnosis [facility] [id number] [place] [address] 82451- 1822 Jun, [facility] [id number] [place] [address] 39255- 0197 May, [facility] [id number] [place] [address] 67313- 5617 May, [facility] [address] 34377- 0863 Apr, Environmental allergies Z91.09 [facility] [address] 22531- 7898 Apr, [facility] [id number] [place] [address] 72351- 5437 Apr, Nail hypertrophy L60.2 and Self-care deficit for grooming and hygiene Z74.1 [facility] [id number] [place] [address] 20470- 9579 Apr, Environmental allergies Z91.09 [facility] [id number] [place] [address] 70392- 8434 Apr, [facility] [id number] [place] [address] 10148- 6090 Apr, [facility] [id number] [place] [address] 60512- 4261 Apr, [facility] [id number] [place] [address] 76315- 8779 Apr, Environmental allergies Z91.09 [facility] [id number] [place] [address] 35863- 3837 Apr, [facility] [id number] [place] [address] 07598- 7245 Apr, Anxiety F41.9 [facility] [id number] [place] [address] 43512- 3001 Mar, Nail hypertrophy L60.2 and Self-care deficit for hygiene R46.0 [facility] [id number] [place] [address] 39305- 2712 Mar, [facility] [id number] [place] [address] 38394- 4759 Mar, [facility] [address] 58425- 9091 Mar, Anxiety F41.9 ; Mood disorder F39 and Dysfunction of both eustachian tubes H69.83 [facility] [id number] [place] [address] 47907- 7885 Mar, Seizures R56.9 [facility] [address] 12329- 1301 Mar, Folliculitis L73.9 [facility] [address] 43901- 2877 Mar, Mild intellectual disability F70 ; Depression, unspecified depression type F32.9 and Anxiety F41.9 [facility] [address] 74259- 8274 Mar, Seizures R56.9 and Folliculitis L73.9 [facility] [id number] [place] [address] 59310- 8960 Feb, [facility] [address] 24174- 3181 Feb, Postconcussion syndrome F07.81 and Folliculitis L73.9 [facility] [id number] [place] [address] 45566- 6470 Feb, Postconcussion syndrome F07.81 [facility] [id number] [place] [address] 20358- 9610 Feb, [facility] [id number] [place] [address] [id number] Feb, [facility] [id number] [id number] Feb, Dental caries extending into dentin K02.62 [facility] [id number] [place] [address] 324971- 9916 January, [facility] [id number] [place] [address] 288452- 6196 January, [facility] [id number] [place] [address] 363623- 9627 January, Onychomycosis B35.1 [facility] [id number] [place] [address] [id number] January, Dental caries extending into dentin K02.62 [facility] [id number] [place] [address] 73586- 0426 Dec, [facility] [id number] [place] [address] 05937- 2435 Dec, [facility] [id number] [place] [address] 95098- 1350 Dec, [facility] [id number] [place] [address] 16954- 0733 Dec, Mild intellectual disability F70 ; Depression, unspecified depression type F32.9 ; Anxiety F41.9 and BMI 45.0-49.9, adult Z68.42 [facility] [id number] [place] [address] 15318- 6062 Dec, Folliculitis L73.9 [facility] [id number] [place] [address] 99624- 4887 Dec, Mild intellectual disability F70 ; Unsteady gait R26.81 and Generalized weakness R53.1 [facility] [address] [id number] Nov, [facility] [id number] [place] [address] 21598- 5224 Nov, [facility] [id number] [place] [address] 97354- 0071 Nov, Folliculitis L73.9 ; Tinea corporis B35.4 and Onychomycosis B35.1 [facility] [id number] [place] [address] [id number] Oct, [facility] [id number] [place] [address] 22540- 4097 Oct, Mood disorder F39 [facility] [id number] [place] [address] 08697- 2842 Oct, [facility] [address] 64470 -4348 Oct, Left hip pain M25.552 and Muscle spasm M62.838 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 ; Anxiety F41.9 ; Onychomycosis B35.1 ; BMI 40.0-44.9, adult Z68.41 and Alkaline phosphatase elevation R74.8 [facility] [id number] [place] [address] 85993- 3032 Sep, Mild intellectual disability F70 [facility] [id number] [place] [address] 85060- 5457 Sep, [facility] [id number] [place] [address] 18013- 3333 Sep, Alkaline phosphatase elevation R74.8 [facility] [id number] [place] [address] 55893- 7687 Sep, Alkaline phosphatase elevation R74.8 [facility] [id number] [place] [address] 00128- 8377 Sep, Mood disorder F39 ; Attention deficit hyperactivity disorder (ADHD), predominantly inattentive type F90.0 ; Irritable bowel syndrome with both constipation and diarrhea K58.2 and Seizures R56.9 [facility] [address], [place] [address]- 0113 Sep, Mild intellectual disability F70 ; Depression, unspecified depression type F32.9 ; Anxiety F41.9 and BMI 40.0-44.9, adult Z68.41 [facility] [id number] [address]- 8216 Sep, [facility] [id number] [place] [address] 87827- 4516 Sep, [facility] [id number] [place] [address] 30924- 2347 Sep, [facility] [id number] [place] [address] 43405- 1565 Sep, [facility] [id number] [place] [address] 92097- 4846 Sep, [facility] [id number] [place] [address] [id number] Aug, Encounter for dental examination and cleaning without abnormal findings Z01.20 [facility] [id number] [place] [address] [id number] Aug, Dental examination Z01.20 [facility] [address] [place] [address] 37161- 8130 Aug, [facility] [address] [place] [address] 16120- 8790 Aug, Depression, unspecified depression type F32.9 ; Mild intellectual disability F70 and Anxiety F41.9 [facility] [address] [place] [address] 82965- 7309 08 Aug, 2017 Mood disorder F39 ; Attention deficit hyperactivity disorder (ADHD), predominantly inattentive type F90.0 ; Irritable bowel syndrome with both constipation and diarrhea K58.2 and Seizures R56.9 [facility] [address] [address]508 Aug, Depression, unspecified depression type F32.9 ; Mild intellectual disability F70 and Anxiety F41.9 [facility] [address], [place] [address]- 2076 Aug, [facility] [id number] [place] [address] [id number] Jul, Dental examination Z01.20 and Dental caries K02.9 [facility] [id number] [place] [address] 269676- 7973 Jun, Unspecified mood [affective] disorder F39 and 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 [facility] [id number] [place] [address] [id number] May, Encounter for dental examination and cleaning without abnormal findings Z01.20 [facility] [id number] [place] [address] [id number] Mar, Dental examination Z01.20 [facility] [id number] [place] [address] [id number] Sep, Dental examination Z01.20 [facility] [id number] [place] [address] [id number] January, Dental examination Z01.20 [facility] [id number] [place] [address] [id number] Dec, Encounter for dental examination Z01.20 [facility] [id number] [place] [address] [id number] Dec, Dental examination Z01.20 [facility] [id number] [place] [address] [id number] Nov, Dental examination Z01.20 [facility] [id number] [place] [address] [id number] Jul, Encounter for dental examination Z01.20 and Dental examination Z01.20 [facility] [address] [facility] [id number] [phone] Apr, Dental examination V72.2 [facility] [address] [facility] [id number] [id number] Mar, Dental examination V72.2 [facility] [id number], [place] [address] 2546 January, [facility] [address], [place] [address]- 2546 January, [facility] [address], [place] [address] 2546 January, [facility] [address], [place] [address] 2546 January, [facility] [id number], [place] [address]- 1576 Jul, IMMUNIZATIONS No Known Immunizations SOCIAL HISTORY Never Assessed REASON FOR VISIT PLAN OF CARE Activity Details Follow Up prn Reason:Recall VITAL SIGNS MEDICATIONS Medication Instructions Dosage Frequency Start Date End Date Duration Status Verapamil HCl ER 120 MG Orally Once a day 1 tablet 24h Active VESIcare 5 mg Orally Once a day 1 tablet 24h Active Blood Glucose Monitor System w/Device test blood sugar 8h Active Simvastatin 20 mg Orally Once a day 1 tablet 24h Active Protonix 40 mg Orally Once a day 1 tablet 24h Active Amitriptyline HCl 50MG TAKE ONE TABLET BY MOUTH AT BEDTIME Active Diflucan 100 MG Orally Once a day 1 tablet 24h Active One-A-Day Bone Strength Active Calcium 600-400 MG-UNIT Orally Once a day 24h Active Topiramate 100 mg Orally Twice a day 1 tablet 12h Active Strattera 100 mg Orally Once a day 1 capsule 24h 30 Active Blood Glucose Test Strip - test blood sugar 8h Active Elmiron 100 mg Orally Three times a day 1 capsule on an empty stomach 8h Active Dicyclomine HCl 20MG TAKE TWO TABLETS BY MOUTH 4 TIMES DAILY Active Phenytoin 100 mg 3 tablets 12h Active Lamotrigine 100 mg Orally Twice a day 1 tablet 12h Active Aspirin 81 MG 1 tablet Active Loratadine 10 mg Orally Once a day 1 tablet 24h Active Meclizine HCl 25 MG Orally TID 1 tablet 8h Active Ketoconazole 2 % Externally Once a day 1 application to affected area 24h Nov, Unknown RESULTS No Results PROCEDURES Procedure Date Ordered Result Body Site RESIN COMPOS - 2 SURFACES POSTERIOR February 27, 2018 Billing Notes on claim February 27, 2018 [employer] Employee/Board adjustment February 27, 2018 INSTRUCTIONS MEDICATIONS ADMINISTERED No Known Medications MEDICAL [...]
--- OUTSIDE RECORDS SUMMARY | 2018-06-16 09:22 | XMS REPORT ---
Author Author YU SAMUEL Organization [facility] Address [address] [place] [address] Care Team Providers Care Commercial Escrow Assistant Name Role Phone YU SAMUEL Unavailable PROBLEMS Type Condition ICD9-CM Code [id number] Code Onset Dates Condition Status SNOMED Code Problem Unspecified mood [affective] disorder F39 Active 89103420 Problem Anxiety F41.9 Active 58879983 Problem 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 Active 212527461 Problem Irritable bowel syndrome with both constipation and diarrhea K58.2 Active 19856943 Problem Attention deficit hyperactivity disorder (ADHD), predominantly inattentive type F90.0 Active 53482081 Problem Mood disorder F39 Active 85116393 Problem Environmental allergies Z91.09 Active 101712032 Problem Postconcussion syndrome F07.81 Active 09046588 Problem Mild intellectual disability F70 Active 96569633 Problem Depression, unspecified depression type F32.9 Active 41390662 Problem Unsteady gait R26.81 Active 19041582 Problem 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 Active [id number] ALLERGIES No Information ENCOUNTERS Encounter Location Date Diagnosis [facility] [address], [place] [address] Jun, [facility] [address], [place] [address] May, [facility] [address], [place] [address] May, [facility] [address], [place] [address] Apr, Environmental allergies Z91.09 [facility] [id number], [place] [address] Apr, [facility] [id number] [place] [address]16 Apr, Nail hypertrophy L60.2 and Self-care deficit for grooming and hygiene Z74.1 [facility] [id number] [place] [address] 90810- 3110 Apr, Environmental allergies Z91.09 [facility] [id number] [place] [address] 04169- 2840 Apr, [facility] [address] [address] Apr, [facility] [address] [address] Apr, [facility] [address] [address] Apr, Environmental allergies Z91.09 [facility] [address] [address]- [address] Apr, [facility] [id number] [place] [address] 73634- 6306 Apr, Anxiety F41.9 [place] [address] Mar, Nail hypertrophy L60.2 and Self-care deficit for hygiene R46.0 [place] [id number] [place] [address] 89552- 6084 Mar, [facility] [id number] [place] [address] 29726- 4340 Mar, [facility] [id number] [place] [address] 74988- 0175 Mar, Anxiety F41.9 ; Mood disorder F39 and Dysfunction of both eustachian tubes H69.83 [facility] [id number] [place] [address] 01247- 4419 Mar, Seizures R56.9 [place] [address] [place] [address] Mar, Folliculitis L73.9 [facility] [id number] [place] [address] 66862- 1023 Mar, Mild intellectual disability F70 ; Depression, unspecified depression type F32.9 and Anxiety F41.9 [facility] [id number] [place] [address] 29638- 2811 Mar, Seizures R56.9 and Folliculitis L73.9 [facility] [id number] [place] [address] 04078- 7278 Feb, [facility] [address] [address] Feb, Postconcussion syndrome F07.81 and Folliculitis L73.9 [facility] [id number] [place] [address] 91905- 9651 Feb, Postconcussion syndrome F07.81 [facility] [id number] [place] [address] 27307- 2951 Feb, [facility] [address] [id number] Feb, [facility] [id number] [place] [address] [phone] Feb, Dental caries extending into dentin K02.62 [facility] [id number] [place] [address] 30957- 1519 January, [facility] [id number] [place] [address] 92731- 5226 January, [facility] [id number] [place] [address] 26114- 8939 January, Onychomycosis B35.1 [facility] [id number] [place] [address] [phone] January, Dental caries extending into dentin K02.62 [facility] [id number] [place] [address] 13366- 9436 Dec, [facility] [address] [address]- [address] Dec, [facility] [id number] [place] [address] 13305- 5055 Dec, [facility] [address] [address]- [address] Dec, Mild intellectual disability F70 ; Depression, unspecified depression type F32.9 ; Anxiety F41.9 and BMI 45.0-49.9, adult Z68.42 [facility] [address] [address]- [address]289 Dec, Folliculitis L73.9 [facility] [address] [address]- 5151 Dec, Mild intellectual disability F70 ; Unsteady gait R26.81 and Generalized weakness R53.1 [facility] [id number] [place] [address] [phone] 15 Nov, 2017 [facility] [address] [address]- 6706 Nov, [facility] [id number] [place] [address] 93755- 8022 Nov, Folliculitis L73.9 ; Tinea corporis B35.4 and Onychomycosis B35.1 [facility] [id number] [place] [address] [phone] Oct, [facility] [address] [address]- [address]62 Oct, Mood disorder F39 [facility] [id number] [place] [address] 67669- 9632 Oct, [facility] [address] [address] Oct, Left hip pain M25.552 and Muscle spasm M62.838 [facility] [address] [id number] Oct, [facility] [id number] [place] [address] 21591- 8461 Oct, 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 ; Anxiety F41.9 ; Onychomycosis B35.1 ; BMI 40.0-44.9, adult Z68.41 and Alkaline phosphatase elevation R74.8 [facility] [id number] [place] [address] 77399- 0615 Sep, Mild intellectual disability F70 [facility] [id number] [place] [address] 84619- 2329 Sep, [facility] [id number] [place] [address] 02182- 3642 Sep, Alkaline phosphatase elevation R74.8 [facility] [id number] [place] [address] 22449- 0579 Sep, Alkaline phosphatase elevation R74.8 [facility] [id number] [place] [address] 89422- 4641 Sep, Mood disorder F39 ; Attention deficit hyperactivity disorder (ADHD), predominantly inattentive type F90.0 ; Irritable bowel syndrome with both constipation and diarrhea K58.2 and Seizures R56.9 [facility] [id number] [place] [address] 09756- 3559 Sep, Mild intellectual disability F70 ; Depression, unspecified depression type F32.9 ; Anxiety F41.9 and BMI 40.0-44.9, adult Z68.41 [facility] [id number] [place] [address] 01958- 5208 Sep, [facility] [id number] [place] [address] 54325- 6520 Sep, [facility] [address] [place] [address]- 5677 Sep, [facility] [address], [place] [address]- 7380 Sep, [facility] [address], [place] [address]- 0509 Sep, [facility] [address] [place] [address] [phone] Aug, Encounter for dental examination and cleaning without abnormal findings Z01.20 [facility] [id number] [place] [address] [phone] Aug, Dental examination Z01.20 [facility] [id number] [place] [address] 15382- 2622 Aug, [facility] [id number] [place] [address] 97710- 9447 Aug, Depression, unspecified depression type F32.9 ; Mild intellectual disability F70 and Anxiety F41.9 [facility] [address], [place] [address]- [address] 08 Aug, 2017 Mood disorder F39 ; Attention deficit hyperactivity disorder (ADHD), predominantly inattentive type F90.0 ; Irritable bowel syndrome with both constipation and diarrhea K58.2 and Seizures R56.9 [facility] [address], [place] [address]- 1341 Aug, Depression, unspecified depression type F32.9 ; Mild intellectual disability F70 and Anxiety F41.9 [facility] [address], [place] [address]- 8[address] Aug, [facility] [id number] [place] [address] [phone] Jul, Dental examination Z01.20 and Dental caries K02.9 [facility] [address] [address] Jun, Unspecified mood [affective] disorder F39 and 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 [facility] [address] [id number] [phone] May, Encounter for dental examination and cleaning without abnormal findings Z01.20 [facility] [address] [id number] [id number] Mar, Dental examination Z01.20 [facility] [id number] [place] [address] [phone] Sep, Dental examination Z01.20 [facility] [id number] [place] [address] [id number] January, Dental examination Z01.20 [facility] [id number] [place] [address] [phone] Dec, Encounter for dental examination Z01.20 [facility] [id number] [place] [address] [id number] Dec, Dental examination Z01.20 [facility] [id number] [place] [address] [phone] Nov, Dental examination Z01.20 [facility] [address] [id number] [place] [address] [id number] Jul, Encounter for dental examination Z01.20 and Dental examination Z01.20 [facility] [address] [id number] [place] [address] [id number] Apr, Dental examination V72.2 [facility] [address] [id number] [id number] Mar, Dental examination V72.2 [facility] [address] [id number] [address] January, [facility] [id number] [place] [address] 25312- 6696 January, [facility] [id number], [place] [address]- [address]60 January, [facility] [id number] [place] [address] 93519- 6603 January, [facility] [address] [facility] [id number] [place] [address]- 7857 Jul, IMMUNIZATIONS No Known Immunizations SOCIAL HISTORY Never Assessed REASON FOR VISIT Requests return call PLAN OF CARE VITAL SIGNS MEDICATIONS Unknown Medications RESULTS No Results PROCEDURES No Known procedures [...]
--- OUTSIDE RECORDS SUMMARY | 2018-06-16 09:23 | XMS REPORT ---
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 Active 303792544 Problem Irritable bowel syndrome with both constipation and diarrhea K58.2 Active 49652179 Problem Attention deficit hyperactivity disorder (ADHD), predominantly inattentive type F90.0 Active 41441419 Problem Mood disorder F39 Active 61578872 Problem Environmental allergies Z91.09 Active 830114897 Problem Postconcussion syndrome F07.81 Active 18956125 Problem Mild intellectual disability F70 Active 87315495 Problem Depression, unspecified depression type F32.9 Active 33316758 Problem Unsteady gait R26.81 Active 07578297 Problem 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 Active 44331410 ALLERGIES No Information ENCOUNTERS Encounter Location Date Diagnosis [facility] [id number] [address] Jun, [facility] [address] [address] May, [facility] [address] [address] May, [facility] [address] [address] Apr, Environmental allergies Z91.09 [facility] [id number] [address] Apr, [facility] [id number] [place] [address] Apr, Nail hypertrophy L60.2 and Self-care deficit for grooming and hygiene Z74.1 [facility] [id number] [place] [address]- 2008 Apr, Environmental allergies Z91.09 [facility] [id number] [place] [address]26- 7611 Apr, [facility] [address] [address] Apr, [facility] [address] [address] Apr, [facility] [address] [address] Apr, Environmental allergies Z91.09 [facility] [address] [address] Apr, [facility] [id number] [place] [address]- 48[address] Apr, Anxiety F41.9 [address] [address] Mar, Nail hypertrophy L60.2 and Self-care deficit for hygiene R46.0 [place] [id number] [place] [address]397- 4152 Mar, [facility] [id number] [place] [address]- 2951 Mar, [facility] [id number] [place] [address] 20539- 5385 Mar, Anxiety F41.9 ; Mood disorder F39 and Dysfunction of both eustachian tubes H69.83 [facility] [id number] [place] [address]- 8949 Mar, Seizures R56.9 [place] [address] [place] [address] Mar, Folliculitis L73.9 [facility] [id number] [place] [address] 74446- 5[address] Mar, Mild intellectual disability F70 ; Depression, unspecified depression type F32.9 and Anxiety F41.9 [facility] [id number] [place] [address] 9[address]- 7[address] Mar, Seizures R56.9 and Folliculitis L73.9 [facility] [id number] [place] [address]241- 42[address] Feb, [facility] [address] [address] Feb, Postconcussion syndrome F07.81 and Folliculitis L73.9 [facility] [id number] [place] [address]- [address] Feb, Postconcussion syndrome F07.81 [facility] [id number] [place] [address]- [address]307 Feb, [facility] [address] [id number] Feb, [facility] [id number] [place] [address] [id number] Feb, Dental caries extending into dentin K02.62 [facility] [id number] [place] [address] 66929- 9944 January, [facility] [id number] [place] [address] 43242- 77[address] January, [facility] [id number] [place] [address] 03612- 2006 January, Onychomycosis B35.1 [facility] [id number] [place] [address] [phone] January, Dental caries extending into dentin K02.62 [facility] [id number] [place] [address] 16060- 8995 Dec, [facility] [address] [address] Dec, [facility] [id number] [place] [address] 64336- 7749 Dec, [facility] [address] [address]- [address] Dec, Mild intellectual disability F70 ; Depression, unspecified depression type F32.9 ; Anxiety F41.9 and BMI 45.0-49.9, adult Z68.42 [facility] [address] [address]- [address] Dec, Folliculitis L73.9 [facility] [address] [address]- [address] Dec, Mild intellectual disability F70 ; Unsteady gait R26.81 and Generalized weakness R53.1 [facility] [id number] [place] [address] [id number] [phone] Nov, 2017 [facility] [address] [address]- [address] Nov, [facility] [id number] [place] [address] 40204- 1415 Nov, Folliculitis L73.9 ; Tinea corporis B35.4 and Onychomycosis B35.1 [facility] [id number] [place] [address] [phone] Oct, [facility] [address] [address] Oct, Mood disorder F39 [facility] [id number] [place] [address] 28096- 5956 Oct, [facility] [address] [address] Oct, Left hip pain M25.552 and Muscle spasm M62.838 [facility] [address] [id number] Oct, [facility] [id number] [place] [address] 65109- 9[address] Oct, 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 ; Anxiety F41.9 ; Onychomycosis B35.1 ; BMI 40.0-44.9, adult Z68.41 and Alkaline phosphatase elevation R74.8 [facility] [id number] [place] [address] 91434- 2293 Sep, Mild intellectual disability F70 [facility] [id number] [place] [address] 27390- 9801 Sep, [facility] [id number] [place] [address] 20590- 1098 Sep, Alkaline phosphatase elevation R74.8 [facility] [id number] [place] [address] 43352- 2999 Sep, Alkaline phosphatase elevation R74.8 [facility] [id number] [place] [address] 92976- 5025 Sep, Mood disorder F39 ; Attention deficit hyperactivity disorder (ADHD), predominantly inattentive type F90.0 ; Irritable bowel syndrome with both constipation and diarrhea K58.2 and Seizures R56.9 [facility] [id number] [place] [address] 19172- 7038 Sep, Mild intellectual disability F70 ; Depression, unspecified depression type F32.9 ; Anxiety F41.9 and BMI 40.0-44.9, adult Z68.41 [facility] [id number] [place] [address] 94097- 6234 Sep, [facility] [id number] [place] [address] 11703- 4069 Sep, [facility] [address] [place] [address]- [address] Sep, [facility] [address] [address] Sep, [facility] [address] [address] Sep, [facility] [id number] [place] [id number] Aug, Encounter for dental examination and cleaning without abnormal findings Z01.20 [facility] [id number] [place] [address] [id number] Aug, Dental examination Z01.20 [facility] [id number] [place] [address] 88994- 6635 Aug, [facility] [id number] [place] [address] 08331- 3527 Aug, Depression, unspecified depression type F32.9 ; Mild intellectual disability F70 and Anxiety F41.9 [facility] [address] [address] 08 Aug, 2017 Mood disorder F39 ; Attention deficit hyperactivity disorder (ADHD), predominantly inattentive type F90.0 ; Irritable bowel syndrome with both constipation and diarrhea K58.2 and Seizures R56.9 [facility] [address] [address]- [address] Aug, Depression, unspecified depression type F32.9 ; Mild intellectual disability F70 and Anxiety F41.9 [facility] [address] [address]- [address] Aug, [facility] [id number] [place] [address] [id number] Jul, Dental examination Z01.20 and Dental caries K02.9 [facility] [address] [address] Jun, Unspecified mood [affective] disorder F39 and 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 [facility] [address] [id number] [id number] May, Encounter for dental examination and cleaning without abnormal findings Z01.20 [facility] [address] [id number] [id number] Mar, Dental examination Z01.20 [facility] [id number] [place] [address] [id number] Sep, Dental examination Z01.20 [facility] [id number] [place] [address] [phone] January, Dental examination Z01.20 [facility] [id number] [place] [address] [phone] Dec, Encounter for dental examination Z01.20 [facility] [id number] [place] [address] [phone] Dec, Dental examination Z01.20 [facility] [id number] [place] [address] [phone] Nov, Dental examination Z01.20 [facility] [id number] [place] [address] [phone] Jul, Encounter for dental examination Z01.20 and Dental examination Z01.20 [facility] [address] [id number] [place] [address] [id number] Apr, Dental examination V72.2 [facility] [address] [id number] [id number] Mar, Dental examination V72.2 [facility] [address] [id number] [address] January, [facility] [id number] [place] [address] 47458- 8926 January, [facility] [id number] [address]- 2846 January, [facility] [id number] [place] [address] 46010- 3886 January, [facility] [address] [facility] [id number] [place] [address] Jul, IMMUNIZATIONS No Known Immunizations SOCIAL HISTORY Never Assessed REASON FOR VISIT medication request PLAN OF CARE VITAL SIGNS MEDICATIONS Medication Instructions Dosage Frequency Start Date End Date Duration Status Diflucan 150 MG Orally Once a day 1 tablet 24h Mar, Mar, 03 days Active RESULTS No Results PROCEDURES No [...]
--- OUTSIDE RECORDS SUMMARY | 2018-06-16 09:23 | XMS REPORT ---
Author Author RHODA MARILU 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 Active 932386438 Problem Irritable bowel syndrome with both constipation and diarrhea K58.2 Active 39427392 Problem Attention deficit hyperactivity disorder (ADHD), predominantly inattentive type F90.0 Active 92483137 Problem Mood disorder F39 Active 84426335 Problem Environmental allergies Z91.09 Active 072218425 Problem Postconcussion syndrome F07.81 Active 22686355 Problem Mild intellectual disability F70 Active 24829404 Problem Depression, unspecified depression type F32.9 Active 83465387 Problem Unsteady gait R26.81 Active 56109863 Problem 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 Active 12207068 ALLERGIES Substance Reaction Event Type Date Status Zithromax Unknown Drug Allergy Mar, Active Promethazine HCl n/v Drug Allergy Mar, Active Macrobid n/v Drug Allergy Mar, Active Tetracycline HCl Unknown Drug Allergy Mar, Active Sulfamethoxazole dizziness Drug Allergy Mar, Active [place] Carbonate Unknown Drug Allergy Mar, Active Levaquin n/v Drug Allergy Mar, Active Keflex n/v Drug Allergy Mar, Active Estradiol Unknown Drug Allergy Mar, Active Depakote n/v Drug Allergy Mar, Active Codeine Sulfate Unknown Drug Allergy Mar, Active Codeine Phosphate n/v Drug Allergy Mar, Active Clindamycin HCl Unknown Drug Allergy Mar, Active Amoxicillin anaphylaxis and n/v Drug Allergy Mar, Active latex Unknown Non Drug Allergy Mar, Active ENCOUNTERS Encounter Location Date Diagnosis [facility] [id number] [place] [address] 76635- 3669 Jun, [facility] [id number] [place] [address] 35730- 9218 May, [facility] [id number] [place] [address] 91546- 1017 Apr, Environmental allergies Z91.09 [facility] [address] [address]- 4596 Apr, [facility] [address] 94850- 0813 Apr, Nail hypertrophy L60.2 and Self-care deficit for grooming and hygiene Z74.1 [facility] [id number] [place] [address] 45575- 3131 Apr, Environmental allergies Z91.09 [facility] [id number] [place] [address] 79879- 9765 Apr, [facility] [id number] [place] [address] 15231- 4732 Apr, [facility] [id number] [place] [address] 14496- 9949 Apr, [facility] [id number] [place] [address] 13146- 2998 Apr, Environmental allergies Z91.09 [facility] [id number] [place] [address] 36809- 7594 Apr, [facility] [id number] [place] [address] 45000- 7837 Apr, Anxiety F41.9 [facility] [id number] [place] [address] 59151- 4018 Mar, Nail hypertrophy L60.2 and Self-care deficit for hygiene R46.0 [facility] [address] [address]- 9108 Mar, [facility] [address] 259242- 7616 Mar, [facility] [address] 274097- 2126 Mar, Anxiety F41.9 ; Mood disorder F39 and Dysfunction of both eustachian tubes H69.83 [facility] [address] 156185- 3565 Mar, Seizures R56.9 [facility] [address] 22208- 4439 Mar, Folliculitis L73.9 [facility] [address] 33057- 0840 Mar, Mild intellectual disability F70 ; Depression, unspecified depression type F32.9 and Anxiety F41.9 [facility] [address] 29503- 9162 Mar, Seizures R56.9 and Folliculitis L73.9 [facility] [address] 61458- 1752 Feb, [facility] [address] 22835- 3719 Feb, Postconcussion syndrome F07.81 and Folliculitis L73.9 [facility] [id number] [place] [address] 66100- 2526 Feb, Postconcussion syndrome F07.81 [facility] [id number] [place] [address] 51357- 2659 Feb, [facility] [address] [id number] Feb, [facility] [id number] [place] [address] [id number] Feb, Dental caries extending into dentin K02.62 [facility] [address] [address] January, [facility] [id number] [place] [address] 72147- 0695 January, [facility] [id number] [place] [address] 66099- 9778 January, Onychomycosis B35.1 [facility] [id number] [place] [address] [id number] January, Dental caries extending into dentin K02.62 [facility] [id number] [place] [address] 42452- 0198 Dec, [facility] [id number] [place] [address] 34057- 2704 Dec, [facility] [id number] [place] [address] 06371- 5875 Dec, [facility] [id number] [place] [address] 23345- 4114 Dec, Mild intellectual disability F70 ; Depression, unspecified depression type F32.9 ; Anxiety F41.9 and BMI 45.0-49.9, adult Z68.42 [facility] [id number] [place] [address] 56814- 5269 Dec, Folliculitis L73.9 [facility] [id number] [place] [address] 25578- 4164 Dec, Mild intellectual disability F70 ; Unsteady gait R26.81 and Generalized weakness R53.1 [facility] [id number] [place] [address] [id number] Nov, [facility] [id number] [place] [address] 65823- 6132 Nov, [facility] [id number] [place] [address] 98768- 3237 09 Mar, 2018 Folliculitis L73.9 ; Tinea corporis B35.4 and Onychomycosis B35.1 [facility] [address] [place] [address] [id number] Oct, [facility] [id number] [place] [address] 06738- 7807 Oct, Mood disorder F39 [facility] [id number] [place] [address] 24141- 6686 Oct, [facility] [id number] [place] [address] 37250 -8601 Oct, Left hip pain M25.552 and Muscle spasm M62.838 [facility] [id number] [place] [address] [id number] Oct, [facility] [id number] [place] [address] 28895- 9897 Oct, 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 ; Anxiety F41.9 ; Onychomycosis B35.1 ; BMI 40.0-44.9, adult Z68.41 and Alkaline phosphatase elevation R74.8 [facility] [id number] [place] [address] 28060- 8016 Sep, Mild intellectual disability F70 [facility] [id number] [place] [address] 66705- 7609 Sep, [facility] [id number] [place] [address] 65018- 9651 Sep, Alkaline phosphatase elevation R74.8 [facility] [id number] [place] [address] 30692- 2800 Sep, Alkaline phosphatase elevation R74.8 [facility] [id number] [place] [address] 43632- 9889 Sep, Mood disorder F39 ; Attention deficit hyperactivity disorder (ADHD), predominantly inattentive type F90.0 ; Irritable bowel syndrome with both constipation and diarrhea K58.2 and Seizures R56.9 [facility] [address] [place] [address] 53092- 5049 Sep, Mild intellectual disability F70 ; Depression, unspecified depression type F32.9 ; Anxiety F41.9 and BMI 40.0-44.9, adult Z68.41 [facility] [id number] [place] [address] 40081- 8707 Sep, [facility] [id number] [place] [address] 028617- 1256 Sep, [facility] [id number] [place] [address] 76884- 5940 Sep, [facility] [address] 72300- 5574 Sep, [facility] [id number] [place] [address] 15462- 7144 Sep, [facility] [address] [id number] Aug, Encounter for dental examination and cleaning without abnormal findings Z01.20 [facility] [address] [id number] Aug, Dental examination Z01.20 [facility] [id number] [place] [address] 32340- 6868 Aug, [facility] [id number] [place] [address] 09766- 7213 Aug, Depression, unspecified depression type F32.9 ; Mild intellectual disability F70 and Anxiety F41.9 [facility] [id number] [place] [address] 44681- 8204 Aug, Mood disorder F39 ; Attention deficit hyperactivity disorder (ADHD), predominantly inattentive type F90.0 ; Irritable bowel syndrome with both constipation and diarrhea K58.2 and Seizures R56.9 [facility] [id number] [place] [address] 45655- 4623 Aug, Depression, unspecified depression type F32.9 ; Mild intellectual disability F70 and Anxiety F41.9 [facility] [id number] [place] [address] 06754- 2546 Aug, [facility] [id number] [place] [address] [id number] Jul, Dental examination Z01.20 and Dental caries K02.9 [facility] [id number] [place] [address] 45943- 2546 Jun, Unspecified mood [affective] disorder F39 and 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 [facility] [id number] [place] [address] [id number] May, Encounter for dental examination and cleaning without abnormal findings Z01.20 [facility] [id number] [place] [address] [id number] Mar, Dental examination Z01.20 [facility] [id number] [place] [address] [id number] Sep, Dental examination Z01.20 [facility] [id number] [place] [address] [id number] January, Dental examination Z01.20 [facility] [id number] [place] [address] [id number] Dec, Encounter for dental examination Z01.20 [facility] [id number] [place] [address] [id number] Dec, Dental examination Z01.20 [facility] [id number] [place] [address] [id number] Nov, Dental examination Z01.20 [facility] [id number] [place] [address] [id number] Jul, Encounter for dental examination Z01.20 and Dental examination Z01.20 [facility] [id number] [place] [address] [id number] Apr, Dental examination V72.2 [facility] [address] [id number] [id number] Mar, Dental examination V72.2 [facility] [id number] [address]- 3181 January, [facility] [address] [facility] [id number] [address]- 5101 January, [facility] [address] [address]- 7740 January, [facility] [address] [facility] [id number] [address]- 7714 January, [facility] [id number] [address]- 2063 Jul, IMMUNIZATIONS No Known Immunizations SOCIAL HISTORY Never Assessed REASON FOR VISIT f/u Mely PLAN OF CARE Activity Details Follow Up 4 Months Reason: VITAL SIGNS Height 59 in 2018-04-06 Heart Rate 96 bpm 2018-04-06 Respiratory Rate 22 2018-04-06 Blood pressure systolic 118 mmHg 2018-04-06 Blood pressure diastolic 74 mmHg 2018-04-06 MEDICATIONS Medication Instructions Dosage Frequency Start Date End Date Duration Status Calcium 600-400 MG-UNIT Orally Once a day 24h Active One-A-Day Bone Strength Active Simvastatin 20 mg Orally Once a day 1 tablet 24h Active Aspirin 81 MG 1 tablet Active Elmiron 100 mg Orally Three times a day 1 capsule on an empty stomach 8h Active Phenytoin 100 mg 3 tablets 12h Active Amitriptyline HCl 50 mg Orally at bedtime 1 tablet 30 days Active Blood Glucose Test Strip - test blood sugar 8h Not-Taking Meclizine HCl 25 MG Orally 4 times a day 1 tablet 6h 30 days Active VESIcare 5 mg Orally Once a day 1 tablet 24h Active Estradiol 0.5 MG Orally Once a day 1 tablet 24h 30 days Active Verapamil HCl ER 120 MG Orally Once a day 1 tablet 24h Active Loratadine 10 mg Orally Once a day 1 tablet 24h Active Protonix 40 mg Orally Once a day 1 tablet 24h Active Diflucan 100 MG Orally Once a day 1 tablet 24h Active Strattera 100 mg Orally Once a day 1 capsule 24h 30 days Active Dicyclomine HCl 20MG TAKE TWO TABLETS BY MOUTH 4 TIMES DAILY Active Topiramate 100 mg Orally Twice a day 1 tablet 12h 30 days Active Lamotrigine 100 MG Orally Twice a day 1 tablet 12h 30 days Active Blood Glucose Monitor System w/Device test blood sugar 8h Not- Taking RESULTS No Results PROCEDURES Procedure Date Ordered Result Body Site [facility] ESTABLISHED PATIENT April 06, 2018 INSTRUCTIONS MEDICATIONS ADMINISTERED No Known Medications [...]
--- OUTSIDE RECORDS SUMMARY | 2018-06-16 09:23 | XMS REPORT ---
Author Author YU SAMUEL Organization [facility] Address [address] [place] [address] Care Team Providers Care Egg Tester Name Role Phone YU SAMUEL Unavailable PROBLEMS Type Condition ICD9-CM Code SJA46-RH Code Onset Dates Condition Status SNOMED Code Problem Unspecified mood [affective] disorder F39 Active 18076172 Problem Anxiety F41.9 Active 04370900 Problem 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 Active 643900962 Problem Irritable bowel syndrome with both constipation and diarrhea K58.2 Active 48148445 Problem Attention deficit hyperactivity disorder (ADHD), predominantly inattentive type F90.0 Active 93172287 Problem Mood disorder F39 Active 77489234 Problem Environmental allergies Z91.09 Active 747975080 Problem Postconcussion syndrome F07.81 Active 89500752 Problem Mild intellectual disability F70 Active 66500526 Problem Depression, unspecified depression type F32.9 Active 80600095 Problem Unsteady gait R26.81 Active 23811023 Problem 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 Active 69259337 ALLERGIES No Information ENCOUNTERS Encounter Location Date Diagnosis [facility] [address] [address] Jun, [facility] [id number] [place] [address] 69074- 7988 May, [facility] [id number] [place] [address] 95874- 7089 Apr, Environmental allergies Z91.09 [facility] [id number] [place] [address] 66915- 7394 Apr, [facility] [address], [place] [address] Apr, Nail hypertrophy L60.2 and Self-care deficit for grooming and hygiene Z74.1 [facility] [id number] [place] [address] 34162- 7106 Apr, Environmental allergies Z91.09 [facility] [id number] [place] [address] 58777- 7339 Apr, [facility] [id number] [place] [address] 06828- 2113 Apr, [facility] [address] [address] Apr, [facility] [address] [address]- [address]173 Apr, Environmental allergies Z91.09 [facility] [id number] [place] [address] 93953- 5497 Apr, [facility] [address] 08134- 4446 Apr, Anxiety F41.9 [facility] [id number] [place] [address] 35413- 7775 Mar, Nail hypertrophy L60.2 and Self-care deficit for hygiene R46.0 [facility] [id number] [place] [address] 04149- 3816 Mar, [facility] [id number] [place] [address] 84834- 8465 Mar, [facility] [id number] [place] [address] 56784- 4432 Mar, Anxiety F41.9 ; Mood disorder F39 and Dysfunction of both eustachian tubes H69.83 [facility] [id number] [place] [address] 32592- 0188 Mar, Seizures R56.9 [facility] [id number] [place] [address] 48136- 8895 Mar, Folliculitis L73.9 [facility] [id number] [place] [address] 22607- 0565 Mar, Mild intellectual disability F70 ; Depression, unspecified depression type F32.9 and Anxiety F41.9 [facility] [id number] [place] [address] 16687- 6818 Mar, Seizures R56.9 and Folliculitis L73.9 [facility] [address] 57079- 5553 Feb, [facility] [id number] [place] [address] 92860- 4458 Feb, Postconcussion syndrome F07.81 and Folliculitis L73.9 [facility] [id number] [place] [address] 25949- 4062 Feb, Postconcussion syndrome F07.81 [facility] [id number] [place] [address] 65660- 6592 Feb, [facility] [id number] [place] [address] [id number] Feb, [facility] [address] [id number] Feb, Dental caries extending into dentin K02.62 [facility] [id number] [place] [address] 23507- 8789 January, [facility] [id number] [place] [address] 07705- 9173 January, [facility] [id number] [place] [address] 54297- 0716 January, Onychomycosis B35.1 [facility] [id number] [place] [address] [phone] January, Dental caries extending into dentin K02.62 [facility] [id number] [place] [address] 83847- 5132 Dec, [facility] [id number] [place] [address] 95634- 6776 Dec, [facility] [address] 05071- 7387 Dec, [facility] [id number] [place] [address] 03997- 2275 Dec, Mild intellectual disability F70 ; Depression, unspecified depression type F32.9 ; Anxiety F41.9 and BMI 45.0-49.9, adult Z68.42 [facility] [id number] [place] [address] 04425- 2994 Dec, Folliculitis L73.9 [facility] [address] [address]36- 2313 Dec, Mild intellectual disability F70 ; Unsteady gait R26.81 and Generalized weakness R53.1 [facility] [id number] [place] [address] [id number] Nov, [facility] [id number] [place] [address] 44381- 6633 Nov, [facility] [address] 87145- 6155 Nov, Folliculitis L73.9 ; Tinea corporis B35.4 and Onychomycosis B35.1 [facility] [id number] [place] [address] [phone] Oct, [facility] [id number] [place] [address] 48238- 7144 Oct, Mood disorder F39 [facility] [id number] [place] [address] 89500- 7632 Oct, [facility] [id number] [place] [address] 39768 -4536 Oct, Left hip pain M25.552 and Muscle spasm M62.838 [facility] [address] [place] [address] Oct, 2017 [facility] [id number] [place] [address] 20188- 6820 Oct, 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 ; Anxiety F41.9 ; Onychomycosis B35.1 ; BMI 40.0-44.9, adult Z68.41 and Alkaline phosphatase elevation R74.8 [facility] [id number] [place] [address] 86560- 1825 Sep, Mild intellectual disability F70 [facility] [id number] [place] [address] 25521- 1877 Sep, [facility] [id number] [place] [address] 38063- 8926 Sep, Alkaline phosphatase elevation R74.8 [facility] [id number] [place] [address] 35417- 3061 Sep, Alkaline phosphatase elevation R74.8 [facility] [id number] [place] [address] 62109- 4971 Sep, Mood disorder F39 ; Attention deficit hyperactivity disorder (ADHD), predominantly inattentive type F90.0 ; Irritable bowel syndrome with both constipation and diarrhea K58.2 and Seizures R56.9 [place] [address] [place] [address] 97047- 8897 Sep, Mild intellectual disability F70 ; Depression, unspecified depression type F32.9 ; Anxiety F41.9 and BMI 40.0-44.9, adult Z68.41 [facility] [place] [address] [place] [address] 14966- 5594 Sep, [facility] [id number] [place] [address] 69700- 0559 Sep, [facility] [id number] [place] [address] 31870- 8333 Sep, [facility] [address] [place] [address] 08 Sep, 2017 [facility] [id number] [place] [address] 93517- 2221 Sep, [facility] [id number] [place] [address] [phone] Aug, Encounter for dental examination and cleaning without abnormal findings Z01.20 [facility] [id number] [place] [address] [phone] Aug, Dental examination Z01.20 [facility] [id number] [place] [address] 581762- 9841 Aug, [facility] [id number] [place] [address] 53522- 6412 Aug, Depression, unspecified depression type F32.9 ; Mild intellectual disability F70 and Anxiety F41.9 [facility] [id number] [place] [address] 53998- 7684 08 Aug, 2017 Mood disorder F39 ; Attention deficit hyperactivity disorder (ADHD), predominantly inattentive type F90.0 ; Irritable bowel syndrome with both constipation and diarrhea K58.2 and Seizures R56.9 [facility] [id number] [place] [address] 86950- 6494 Aug, Depression, unspecified depression type F32.9 ; Mild intellectual disability F70 and Anxiety F41.9 [facility] [id number] [place] [address] 24052- 7916 Aug, [facility] [address] [place] [address] [phone] Jul, Dental examination Z01.20 and Dental caries K02.9 [facility] [id number] [place] [address] 523550- 2886 Jun, Unspecified mood [affective] disorder F39 and 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 [facility] [id number] [place] [address] [phone] May, Encounter for dental examination and cleaning without abnormal findings Z01.20 [facility] [address] [id number] [id number] Mar, Dental examination Z01.20 [facility] [address] [id number] [phone] Sep, Dental examination Z01.20 [facility] [address] [id number] [id number] January, Dental examination Z01.20 [facility] [id number] [place] [address] [id number] Dec, Encounter for dental examination Z01.20 [facility] [id number] [place] [address] [id number] Dec, Dental examination Z01.20 [facility] [address] [id number] [phone] Nov, Dental examination Z01.20 [facility] [id number] [place] [address] [id number] Jul, Encounter for dental examination Z01.20 and Dental examination Z01.20 [facility] [address] [id number] [id number] Apr, Dental examination V72.2 [facility] [address] [id number] [id number] Mar, Dental examination V72.2 [facility] [address] [id number], [place] [address]- 5436 January, [facility] [address] [id number], [place] [address]- 6089 January, [facility] [address] [id number], [place] [address]- 4106 January, [facility] [address] [id number], [place] [address]- 0744 January, [facility] [id number] [place] [address] 34355- 3166 Jul, IMMUNIZATIONS No Known Immunizations SOCIAL HISTORY [...]
--- OUTSIDE RECORDS SUMMARY | 2018-06-16 09:24 | XMS REPORT ---
Author Author YU ASMUEL Organization 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 Active 101610178 Problem Irritable bowel syndrome with both constipation and diarrhea K58.2 Active 46061695 Problem Attention deficit hyperactivity disorder (ADHD), predominantly inattentive type F90.0 Active 91760608 Problem Mood disorder F39 Active 83671650 Problem Environmental allergies Z91.09 Active 759747148 Problem Postconcussion syndrome F07.81 Active 00919702 Problem Mild intellectual disability F70 Active 63728673 Problem Depression, unspecified depression type F32.9 Active 31574972 Problem Unsteady gait R26.81 Active 37539960 Problem 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 [id number] [address] Jun, [facility] [id number] [place] [address] 58857- 6609 May, [facility] [id number] [place] [address] 17768- 9912 Apr, Environmental allergies Z91.09 [facility] [id number] [place] [address] 27016- 3760 Apr, [facility] [address] [address] Apr, Nail hypertrophy L60.2 and Self-care deficit for grooming and hygiene Z74.1 [facility] [id number] [place] [address] 98932- 6935 Apr, Environmental allergies Z91.09 [facility] [id number] [place] [address] 62532- 8546 Apr, [facility] [id number] [place] [address] 24249- 3411 Apr, [facility] [address] [address]- [address] Apr, [facility] [address] 8[address]82- 7853 Apr, Environmental allergies Z91.09 [facility] [id number] [place] [address] 58667- 3322 Apr, [facility] [address] 72478- [address]68 Apr, [address]41.9 [facility] [id number] [place] [address] 85134- 9663 Mar, Nail hypertrophy L60.2 and Self-care deficit for hygiene R46.0 [facility] [id number] [place] [address] 18223- 7485 Mar, [facility] [id number] [place] [address] 72959- 4693 Mar, [facility] [id number] [place] [address] 56132- 9844 Mar, Anxiety F41.9 ; Mood disorder F39 and Dysfunction of both eustachian tubes H69.83 [facility] [id number] [place] [address] 07157- 6449 Mar, Se[address]ures R56.9 [facility] [id number] [place] [address] 42689- 5424 Mar, Folliculitis L73.9 [facility] [id number] [place] [address] 56088- 7847 Mar, Mild intellectual disability F70 ; Depression, unspecified depression type F32.[address] [facility] [id number] [place] [address] 12157- 4206 Mar, Seizures R56.[address] [facility] [address] 23303- [address]00 Feb, [facility] [id number] [place] [address] 16550- 9565 Feb, Postconcussion syndrome F07.[address] [facility] [id number] [place] [address] 94118- 6794 Feb, Postconcussion syndrome F07.81 [facility] [id number] [place] [address] 56695- 1664 Feb, [facility] [id number] [place] [address] [id number] Feb, [facility] [address] [id number] Feb, Dental caries extending into dentin K02.62 [facility] [id number] [place] [address] 79044- 7994 January, [facility] [id number] [place] [address] 25442- 7447 January, [facility] [id number] [place] [address] 44544- 2302 January, Onychomycosis B35.1 [facility] [id number] [place] [address] [id number] January, Dental caries extending into dentin K02.62 [facility] [id number] [place] [address] 10238- 5064 Dec, [facility] [id number] [place] [address] 43785- 0356 Dec, [facility] [address] 90669- 5655 Dec, [facility] [id number] [place] [address] 25365- 4010 Dec, Mild intellectual disability F70 ; Depression, unspecified depression type F32.9 ; Anxiety F41.9 and BMI 45.0-49.9, adult Z68.42 [facility] [id number] [place] [address] 82064- 7741 Dec, Folliculitis L73.9 [place] [address] 34325- 2891 Dec, Mild intellectual disability F70 ; Unsteady gait R26.81 and Generalized weakness R53.1 [facility] [id number] [place] [address] [id number] Nov, [facility] [id number] [place] [address] 66010- 5463 Nov, [facility] [address] 10582- 3594 Nov, Folliculitis L73.9 ; Tinea corporis B35.4 and Onychomycosis B35.1 [facility] [id number] [place] [address] [id number] Oct, [facility] [id number] [place] [address] 63203- 5145 Oct, Mood disorder F39 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 ; Anxiety F41.9 ; Onychomycosis B35.1 ; BMI 40.0-44.9, adult Z68.41 and Alkaline phosphatase elevation R74.8 [place] [id number] [place] [address] 38372- 8888 Sep, Mild intellectual disability F70 [place] [id number] [place] [address] 26206- 1971 Sep, [place] [id number] [place] [address] 71212- 2925 Sep, Alkaline phosphatase elevation R74.8 [place] [id number] [place] [address] 61831- 9272 Sep, Alkaline phosphatase elevation R74.8 [place] [id number] [place] [address] 77132- 0609 Sep, Mood disorder F39 ; Attention deficit hyperactivity disorder (ADHD), predominantly inattentive type F90.0 ; Irritable bowel syndrome with both constipation and diarrhea K58.2 and Seizures R56.9 [place] [id number] [place] [address] 23191- 7709 Sep, Mild intellectual disability F70 ; Depression, unspecified depression type F32.9 ; Anxiety F41.9 and BMI 40.0-44.9, adult Z68.41 [place] [id number] [place] [address] 68450- 0065 Sep, [place] [id number] [place] [address] 66508- 5283 Sep, [place] [id number] [place] [address] 31345- 6226 Sep, [place] [address] [place] 08 Sep, 2017 [facility] [id number] [place] [address] 58322- 3297 Sep, [facility] [id number] [place] [address] [id number] Aug, Encounter for dental examination and cleaning without abnormal findings Z01.20 [facility] [id number] [place] [address] [id number] Aug, Dental examination Z01.20 [facility] [id number] [place] [address] 102115- 6267 Aug, [facility] [id number] [place] [address] 50534- 5082 Aug, Depression, unspecified depression type F32.9 ; Mild intellectual disability F70 [address]9 [facility] [id number] [place] [address] 17381- 4780 08 Aug, 2017 Mood disorder F39 ; Attention deficit hyperactivity disorder (ADHD), predominantly inattentive type F90.0 ; Irritable bowel syndrome with both constipation and diarrhea K58.[address] [facility] [id number] [place] [address] 82634- 0354 Aug, Depression, unspecified depression type F32.9 ; Mild intellectual disability F70 and [address]9 [facility] [id number] [place] [address] 32150- 4746 Aug, [facility] [id number] [place] [address] [id number] Jul, Dental examination Z01.20 and Dental caries K02.9 [facility] [id number] [place] [address] 928299- 8166 Jun, Unspecified mood [affective] disorder F39 and 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 [facility] [id number] [place] [address] [id number] May, Encounter for dental examination and cleaning without abnormal findings Z01.20 [facility] [address] [id number] [phone] Mar, Dental examination Z01.20 [facility] [address] [id number] [place] [phone] Sep, Dental examination Z01.20 [facility] [address] [id number] [place] [phone] January, Dental examination Z01.20 [facility] [id number] [place] [address] [id number] Dec, Encounter for dental examination Z01.20 [facility] [id number] [place] [address] [id number] Dec, Dental examination Z01.20 [facility] [address] [id number] [place] [phone] Nov, Dental examination Z01.20 [facility] [id number] [place] [address] [id number] Jul, Encounter for dental examination Z01.20 and Dental examination Z01.20 [facility] [address] [id number] [place] [id number] Apr, Dental examination V72.2 [facility] [address] [id number] [place] [id number] Mar, Dental examination V72.2 [facility] [address] [id number] [address] 8[address] January, [facility] [address] [id number] [address] 8640 January, [facility] [address] [id number] [address] 1266 January, [facility] [address] [id number] [address]- 2311 January, [facility] [id number] [place] [address] [id number] Jul, IMMUNIZATIONS No Known Immunizations SOCIAL HISTORY Never Assessed REASON FOR VISIT Lab (walk-in) PLAN OF CARE VITAL SIGNS MEDICATIONS Unknown Medications RESULTS Name Result Date Reference Range DILANTIN 2018-04-06 PHENYTOIN 16.7 10.0-20.0 PROCEDURES Procedure Date Ordered Result Body Site LAB NOT BILLED BY [facility] April 06, 2018 INSTRUCTIONS MEDICATIONS ADMINISTERED No [...] Surgical History hernia 2002 Surgical History D&C 2004 Surgical History foot surgery 2006 Surgical History Port replaced 2018 Hospitalization History at least 5 inpatient treatments, last one in 2005 2005 and before
--- OUTSIDE RECORDS SUMMARY | 2018-06-16 09:24 | XMS REPORT ---
Author Author YU SAMUEL 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 Name Role Phone YU SAMUEL Unavailable PROBLEMS Type Condition ICD9-CM Code UGZ47-MC Code Onset Dates Condition Status SNOMED Code Problem Unspecified mood [affective] disorder F39 Active 79459347 Problem Anxiety F41.9 Active 55507637 Problem 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 Active 799331123 Problem Irritable bowel syndrome with both constipation and diarrhea K58.2 Active 15004186 Problem Attention deficit hyperactivity disorder (ADHD), predominantly inattentive type F90.0 Active 22485874 Problem Mood disorder F39 Active 71371128 Problem Environmental allergies Z91.09 Active 385614591 Problem Postconcussion syndrome F07.81 Active 48971687 Problem Mild intellectual disability F70 Active 51674056 Problem Depression, unspecified depression type F32.9 Active 32856811 Problem Unsteady gait R26.81 Active 65004973 Problem 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 Active 52727816 ALLERGIES Substance Reaction Event Type Date Status Zithromax Unknown Drug Allergy Mar, Active Promethazine HCl n/v Drug Allergy Mar, Active Macrobid n/v Drug Allergy Mar, Active Tetracycline HCl Unknown Drug Allergy Mar, Active Sulfamethoxazole dizziness Drug Allergy Mar, Active [place] Carbonate Unknown Drug Allergy Mar, Active Levaquin [...] Mar, Active ENCOUNTERS Encounter Location Date Diagnosis [facility] [id number] [place] [address] 81551- 9452 Jun, [facility] [id number] [place] [address] 46691- 5926 May, [facility] [id number] [place] [address] 45255- 7484 Apr, Environmental allergies Z91.09 [facility] [address] 59049- 2356 Apr, [facility] [id number] [place] [address] 72145- 9241 Apr, Nail hypertrophy L60.2 and Self-care deficit for grooming and hygiene Z74.1 [facility] [id number] [place] [address] 86157- 0160 Apr, Environmental allergies Z91.09 [facility] [id number] [place] [address] 98304- 0813 Apr, [facility] [id number] [place] [address] 66983- 4991 Apr, [facility] [id number] [place] [address] 40107- 7775 Apr, [facility] [id number] [place] [address] 35340- 7372 Apr, Environmental allergies Z91.09 [facility] [id number] [place] [address] 17186- 7336 Apr, [facility] [id number] [place] [address] 19417- 3152 Apr, Anxiety F41.9 [facility] [id number] [place] [address] 78601- 4756 Mar, Nail hypertrophy L60.2 and Self-care deficit for hygiene R46.0 [facility] [id number] [place] [address] 11725- 8541 Mar, [facility] [id number] [place] [address] 84329- 6349 Mar, [facility] [address] 823596- 1445 Mar, Anxiety F41.9 ; Mood disorder F39 and Dysfunction of both eustachian tubes H69.83 [facility] [address] 58517- 7701 Mar, Seizures R56.9 [facility] [address] 96717- 3637 Mar, Folliculitis L73.9 [facility] [address] 05509- 7901 Mar, Mild intellectual disability F70 ; Depression, unspecified depression type F32.9 and Anxiety F41.9 [facility] [address] 60999- 3807 Mar, Seizures R56.9 and Folliculitis L73.9 [facility] [address] 71405- 1035 Feb, [facility] [address] 54011- 3563 Feb, Postconcussion syndrome F07.81 and Folliculitis L73.9 [facility] [id number] [place] [address] 60135- 0753 Feb, Postconcussion syndrome F07.81 [facility] [id number] [place] [address] 41064- 4419 Feb, [facility] [address] [id number] Feb, [facility] [id number] [place] [address] [id number] Feb, Dental caries extending into dentin K02.62 [place] [id number] [place] [address] 23779- 4211 January, [facility] [id number] [place] [address] 30467- 4105 January, [facility] [id number] [place] [address] 17041- 4042 January, Onychomycosis B35.1 [facility] [address] [id number] January, Dental caries extending into dentin K02.62 [facility] [id number] [place] [address] 49189- 0753 Dec, [facility] [id number] [place] [address] 52975- 8278 Dec, [facility] [id number] [place] [address] 27319- 5067 Dec, [facility] [id number] [place] [address] 13023- 9387 Dec, Mild intellectual disability F70 ; Depression, unspecified depression type F32.9 ; Anxiety F41.9 and BMI 45.0-49.9, adult Z68.42 [facility] [id number] [place] [address] 84668- 7086 Dec, Folliculitis L73.9 [facility] [id number] [place] [address] 07079- 1918 Dec, Mild intellectual disability F70 ; Unsteady gait R26.81 and Generalized weakness R53.1 [facility] [id number] [place] [address] [id number] Nov, [facility] [id number] [place] [address] [id number] Nov, [facility] [id number] [place] [address] 70487- 8868 Nov, Folliculitis L73.9 ; Tinea corporis B35.4 and Onychomycosis B35.1 [facility] [address] [place] [address] [phone] Oct, [facility] [address] 871711- 5972 Oct, Mood disorder F39 [facility] [id number] [place] [address] 44881- 2927 Oct, [facility] [id number] [place] [address] 66477 -9248 Oct, Left hip pain M25.552 and Muscle spasm M62.838 [facility] [place] [id number] [place] [address] [id number] Oct, [facility] [id number] [place] [address] 87915- 1934 Oct, 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 ; Anxiety F41.9 ; Onychomycosis B35.1 ; BMI 40.0-44.9, adult Z68.41 and Alkaline phosphatase elevation R74.8 [facility] [id number] [place] [address] 54759- 3713 Sep, Mild intellectual disability F70 [facility] [id number] [place] [address] 80791- 8368 Sep, [facility] [id number] [place] [address] 90788- 6600 Sep, Alkaline phosphatase elevation R74.8 [facility] [id number] [place] [address] 79250- 5293 Sep, Alkaline phosphatase elevation R74.8 [place] [id number] [place] [address] 51968- 3629 Sep, Mood disorder F39 ; Attention deficit hyperactivity disorder (ADHD), predominantly inattentive type F90.0 ; Irritable bowel syndrome with both constipation and diarrhea K58.2 and Seizures R56.9 [facility] [id number] [place] [address] 85259- 1560 Sep, Mild intellectual disability F70 ; Depression, unspecified depression type F32.9 ; Anxiety F41.9 and BMI 40.0-44.9, adult Z68.41 [facility] [id number] [place] [address] 98947- 1808 Sep, [facility] [address] 33690- 7102 Sep, [facility] [id number] [place] [address] 61885- 4080 Sep, [facility] [address] 95516- 7183 Sep, [facility] [id number] [place] [address] 58695- 7686 Sep, [facility] [address] [id number] Aug, Encounter for dental examination and cleaning without abnormal findings Z01.20 [facility] [id number] [place] [address] [id number] Aug, Dental examination Z01.20 [facility] [id number] [place] [address] 68603- 7834 14 Aug, 2017 [facility] [id number] [place] [address] 40375- 7106 Aug, Depression, unspecified depression type F32.9 ; Mild intellectual disability F70 and Anxiety F41.9 [facility] [id number] [place] [address] 82991- 9805 Aug, Mood disorder F39 ; Attention deficit hyperactivity disorder (ADHD), predominantly inattentive type F90.0 ; Irritable bowel syndrome with both constipation and diarrhea K58.2 and Seizures R56.9 [facility] [id number] [place] [address] 42787- 9051 Aug, Depression, unspecified depression type F32.9 ; Mild intellectual disability F70 and Anxiety F41.9 [facility] [id number] [place] [address] 60288- 2546 Aug, [facility] [id number] [place] [address] [id number] Jul, Dental examination Z01.20 and Dental caries K02.9 [facility] [id number] [place] [address] 78394- 2546 Jun, Unspecified mood [affective] disorder F39 and 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 [facility] [address] [place] [address] [id number] May, Encounter for dental examination and cleaning without abnormal findings Z01.20 [facility] [id number] [place] [address] [id number] Mar, Dental examination Z01.20 [facility] [id number] [place] [address] [id number] Sep, Dental examination Z01.20 [facility] [id number] [place] [address] [id number] January, Dental examination Z01.20 [facility] [id number] [place] [address] [id number] Dec, Encounter for dental examination Z01.20 [facility] [id number] [place] [address] [id number] Dec, Dental examination Z01.20 [facility] [id number] [place] [address] [id number] Nov, Dental examination Z01.20 [facility] [id number] [place] [address] [id number] Jul, Encounter for dental examination Z01.20 and Dental examination Z01.20 [facility] [id number] [place] [address] [id number] Apr, Dental examination V72.2 [facility] [address] [id number] [id number] Mar, Dental examination V72.2 [facility] [address] [facility] [id number], [place] [address]- 2366 January, [facility] [address] [facility] [id number], [place] [address]- 8606 January, [facility] [address] [facility] [id number], [place] [address]- 7978 January, [facility] [address] [facility] [id number], [place] [address]- 1395 January, [facility] [address] [facility] [id number] [id number]- 6729 Jul, IMMUNIZATIONS No Known Immunizations SOCIAL HISTORY Never Assessed REASON FOR VISIT Depression PLAN OF CARE VITAL SIGNS Height 59 in 2018-04-07 Heart Rate 92 bpm 2018-04-07 Respiratory Rate 20 2018-04-07 Blood pressure systolic 104 mmHg 2018-04-07 Blood pressure diastolic 62 mmHg 2018-04-07 MEDICATIONS Medication Instructions Dosage Frequency Start Date End Date Duration Status Protonix 40 mg Orally Once a day 1 tablet 24h Unknown Simvastatin 20 mg Orally Once a day 1 tablet 24h Unknown Ibuprofen 800 MG Orally Three times a day 1 tablet with food or milk as needed 8h Oct, Unknown Topiramate 100 mg Orally Twice a day 1 tablet 12h 30 days Unknown Calcium 600-400 MG-UNIT Orally Once a day 24h Unknown Meclizine HCl 25 MG Orally 4 times a day 1 tablet 6h 30 days Unknown Loratadine 10 mg Orally Once a day 1 tablet 24h Active VESIcare 5 mg Orally Once a day 1 tablet 24h Unknown Verapamil HCl ER 120 MG Orally Once a day 1 tablet 24h Unknown Blood Glucose Monitor System w/Device test blood sugar 8h Not- Taking Aspirin 81 MG 1 tablet Unknown Ibuprofen 800 MG Orally Three times a day 1 tablet with food or milk as needed 8h Mar, Active Cetirizine HCl 10 mg Orally Once a day 1 tablet 24h Mar, Sep, 30 day(s) Active Amitriptyline HCl 50 mg Orally at bedtime 1 tablet 30 days Unknown Strattera 100 mg Orally Once a day 1 capsule 24h 30 days Unknown Dicyclomine HCl 20MG TAKE TWO TABLETS BY MOUTH 4 TIMES DAILY Unknown One-A-Day Bone Strength Unknown Lamotrigine 100 MG Orally Twice a day 1 tablet 12h 30 days Unknown Estradiol 0.5 MG Orally Once a day 1 tablet 24h 30 days Unknown Blood Glucose Test Strip - test blood sugar 8h Not-Taking Phenytoin 100 mg 3 tablets 12h Unknown Elmiron 100 mg Orally Three times a day 1 capsule on an empty stomach 8h Unknown Diflucan 100 MG Orally Once a day 1 tablet 24h Unknown Flonase 50 MCG/ACT Nasally Once a day 1 spray in each nostril 24h Mar, Active RESULTS No Results PROCEDURES Procedure Date Ordered Result Body Site [facility] VISIT ESTABLISHED PATIENT April 07, 2018 INSTRUCTIONS MEDICATIONS ADMINISTERED No Known Medications [...]
--- OUTSIDE RECORDS SUMMARY | 2018-06-16 09:24 | XMS REPORT ---
Author Author YU SAMUEL Organization 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 Active 725236100 Problem Irritable bowel syndrome with both constipation and diarrhea K58.2 Active 33476558 Problem Attention deficit hyperactivity disorder (ADHD), predominantly inattentive type F90.0 Active 01960770 Problem Mood disorder F39 Active 08719725 Problem Environmental allergies Z91.09 Active 200773253 Problem Postconcussion syndrome F07.81 Active 84275328 Problem Mild intellectual disability F70 Active 93343288 Problem Depression, unspecified depression type F32.9 Active 91335040 Problem Unsteady gait R26.81 Active 22143010 Problem 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 [address], [place] [address] Jun, [facility] [id number] [place] [address] 03617- 2619 May, [facility] [id number] [place] [address] 45798- 8353 Apr, Environmental allergies Z91.09 [facility] [address] [place] [address] 66271- 0950 Apr, [facility] [address], [place] [address] 9979 Apr, Nail hypertrophy L60.2 and Self-care deficit for grooming and hygiene Z74.1 [facility] [id number] [place] [address] 33095- 5365 Apr, Environmental allergies Z91.09 [facility] [id number] [place] [address] 35959- 3607 Apr, [facility] [id number] [place] [address] 74371- 0054 Apr, [facility] [address] 31449- 5545 Apr, [facility] [address] 51638- 2382 Apr, Environmental allergies Z91.09 [facility] [id number] [place] [address] 47691- 1143 Apr, [facility] [address] 82698- 3605 Apr, [address] F41.9 [facility] [id number] [place] [address] 12637- 3771 Mar, Nail hypertrophy L60.2 and Self-care deficit for hygiene R46.0 [facility] [id number] [place] [address] 19810- 1994 Mar, [facility] [id number] [place] [address] 83568- 7674 Mar, [facility] [id number] [place] [address] 85928- 7549 Mar, Anxiety F41.9 ; Mood disorder F39 and Dysfunction of both eustachian tubes H69.83 [facility] [id number] [place] [address] 26936- 2093 Mar, Se[address]56.9 [facility] [id number] [place] [address] 38023- 8429 Mar, Folliculitis L73.9 [facility] [id number] [place] [address] 59997- 4863 Mar, Mild intellectual disability F70 ; Depression, unspecified depression type F32.[address] [facility] [id number] [place] [address] 55026- 8840 Mar, Seizures R56.[address] [facility] [address] 22285- 4056 Feb, [facility] [id number] [place] [address] 16993- 2633 Feb, Postconcussion syndrome F07.[address] [facility] [id number] [place] [address] 59163- 7289 Feb, Postconcussion syndrome F07.81 [facility] [id number] [place] [address] 74611- 6941 Feb, [facility] [id number] [place] [address] [id number] Feb, [facility] [address] [id number] Feb, Dental caries extending into dentin K02.62 [facility] [id number] [place] [address] 70196- 0918 January, [facility] [id number] [place] [address] 96533- 2799 January, [facility] [id number] [place] [address] 90251- 0580 January, Onychomycosis B35.1 [facility] [id number] [place] [address] [id number] January, Dental caries extending into dentin K02.62 [facility] [id number] [place] [address] 80923- 3501 Dec, [facility] [id number] [place] [address] 73299- 0369 Dec, [facility] [address] 86486- 8302 Dec, [facility] [id number] [place] [address] 37242- 0345 Dec, Mild intellectual disability F70 ; Depression, unspecified depression type F32.9 ; Anxiety F41.9 and BMI 45.0-49.9, adult Z68.42 [facility] [id number] [place] [address] 55228- 6464 Dec, Folliculitis L73.9 [place] [facility] [address] 21489- 3361 Dec, Mild intellectual disability F70 ; Unsteady gait R26.81 and Generalized weakness R53.1 [facility] [id number] [place] [address] [id number] Nov, [facility] [id number] [place] [address] 47432- 3083 Nov, [facility] [address] 36173- 9673 Nov, Folliculitis L73.9 ; Tinea corporis B35.4 and Onychomycosis B35.1 [facility] [id number] [place] [address] [id number] Oct, [facility] [id number] [place] [address] 70107- 2364 Oct, Mood disorder F39 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 ; Anxiety F41.9 ; Onychomycosis B35.1 ; BMI 40.0-44.9, adult Z68.41 and Alkaline phosphatase elevation R74.8 [facility] [id number] [place] [address] 88896- 5342 Sep, Mild intellectual disability F70 [facility] [id number] [place] [address] 14799- 7427 Sep, [facility] [id number] [place] [address] 28358- 1655 Sep, Alkaline phosphatase elevation R74.8 [facility] [id number] [place] [address] 34765- 3815 Sep, Alkaline phosphatase elevation R74.8 [facility] [id number] [place] [address] 27626- 8390 Sep, Mood disorder F39 ; Attention deficit hyperactivity disorder (ADHD), predominantly inattentive type F90.0 ; Irritable bowel syndrome with both constipation and diarrhea K58.2 and Seizures R56.9 [facility] [address] [place] [address] 90901- 0811 Sep, Mild intellectual disability F70 ; Depression, unspecified depression type F32.9 ; Anxiety F41.9 and BMI 40.0-44.9, adult Z68.41 [facility] [address] [place] [address] 68316- 2390 Sep, [facility] [id number] [place] [address] 63023- 9682 Sep, [facility] [id number] [place] [address] 91387- 4542 Sep, [facility] [address] [place] 08 Sep, 2017 [facility] [id number] [place] [address] 99082- 3684 Sep, [facility] [id number] [place] [address] [id number] Aug, Encounter for dental examination and cleaning without abnormal findings Z01.20 [facility] [id number] [place] [address] [id number] Aug, Dental examination Z01.20 [facility] [id number] [place] [address] 808412- 9889 Aug, [facility] [id number] [place] [address] 60573- 5486 Aug, Depression, unspecified depression type F32.9 ; Mild intellectual disability F70 and Anxiety F41[address]9 [facility] [id number] [place] [address] 00653- 2182 08 Aug, 2017 Mood disorder F39 ; Attention deficit hyperactivity disorder (ADHD), predominantly inattentive type F90.0 ; Irritable bowel syndrome with both constipation and diarrhea K58.[address] [facility] [id number] [place] [address] 72147- 7474 Aug, Depression, unspecified depression type F32.9 ; Mild intellectual disability F70 and [address]41[address]9 [facility] [id number] [place] [address] 70041- 8166 Aug, [facility] [address] [place] [address] [id number] Jul, Dental examination Z01.20 and Dental caries K02.9 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 [facility] [id number] [place] [address] [phone] May, Encounter for dental examination and cleaning without abnormal findings Z01.20 [facility] [address] [id number] [id number] Mar, Dental examination Z01.20 [facility] [address] [id number] [id number] Sep, Dental examination Z01.20 [facility] [address] [id number] [id number] January, Dental examination Z01.20 [facility] [id number] [place] [address] [id number] Dec, Encounter for dental examination Z01.20 [facility] [address] [id number] [place] [address] [id number] Dec, Dental examination Z01.20 [facility] [address] [id number] [phone] Nov, Dental examination Z01.20 [facility] [id number] [place] [address] [id number] Jul, Encounter for dental examination Z01.20 and Dental examination Z01.20 [facility] [address] [id number] [id number] Apr, Dental examination V72.2 [facility] [address] [id number] [id number] Mar, Dental examination V72.2 [facility] [address] [id number], [place] [address]- 6096 January, [facility] [address] [id number], [place] [address] 9[address] January, [facility] [address] [id number] [address] 2826 January, [facility] [address] [id number], [place] [address]- 1707 January, [facility] [address] [id number] [place] [address] 69657- 2320 Jul, IMMUNIZATIONS No Known Immunizations SOCIAL HISTORY Never Assessed REASON FOR VISIT Refill request PLAN OF CARE VITAL SIGNS MEDICATIONS Medication Instructions Dosage Frequency Start Date End Date Duration Status Ibuprofen 800 MG Orally Three times a day 1 tablet with food or milk as needed 8h Oct, Active RESULTS No Results PROCEDURES No Known [...]
--- OUTSIDE RECORDS SUMMARY | 2018-06-16 09:25 | XMS REPORT ---
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 Role Phone YU SAMUEL Unavailable PROBLEMS Type Condition ICD9-CM Code JEQ03-HX Code Onset Dates Condition Status SNOMED Code Problem Unspecified mood [affective] disorder F39 Active 79518956 Problem Anxiety F41.9 Active 90163226 Problem 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 Active 928975329 Problem Irritable bowel syndrome with both constipation and diarrhea K58.2 Active 83387639 Problem Attention deficit hyperactivity disorder (ADHD), predominantly inattentive type F90.0 Active 78031039 Problem Mood disorder F39 Active 79366487 Problem Environmental allergies Z91.09 Active 048071648 Problem Postconcussion syndrome F07.81 Active 69569561 Problem Mild intellectual disability F70 Active 82172587 Problem Depression, unspecified depression type F32.9 Active 27949291 Problem Unsteady gait R26.81 Active 49234778 Problem 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 Active 10453812 ALLERGIES No Information ENCOUNTERS Encounter Location Date Diagnosis [facility] [address], [place] [address]28 Jun, [facility] [id number] [place] [address] 52432- 8246 May, [facility] [address] [place] [address] 58282- 2924 Apr, [facility] [id number] [place] [address] 60446- 0612 Apr, [facility] [address] [place] [address] 27918- 1726 Apr, Nail hypertrophy L60.2 and Self-care deficit for grooming and hygiene Z74.1 [facility] [id number] [place] [address] 03500- 5320 Apr, Environmental allergies Z91.09 [facility] [id number] [place] [address] 71697- 9701 Apr, [facility] [address] 84758- 4835 Apr, [facility] [address] 09684- 0909 Apr, [facility] [address] 98919- 0793 Apr, Environmental allergies Z91.09 [facility] [address] 96609- 6183 Apr, [facility] [address] 34963- 7535 Apr, Anxiety F41.9 [facility] [address] 76567- 0360 Mar, Nail hypertrophy L60.2 and Self-care deficit for hygiene R46.0 [facility] [id number] [place] [address] 24688- 2960 Mar, [facility] [id number] [place] [address] 88138- 3571 Mar, [facility] [id number] [place] [address] 11562- 1573 Mar, Anxiety F41.9 ; Mood disorder F39 and Dysfunction of both eustachian tubes H69.83 [facility] [address] 32675- 8684 Mar, Seizures R56.9 [facility] [id number] [place] [address] 43199- 5559 Mar, Folliculitis L73.9 [facility] [address] [place] [address]- 6124 Mar, Mild intellectual disability F70 ; Depression, unspecified depression type F32.9 and Anxiety F41.9 [facility] [address] 64627- 3698 Mar, Seizures R56.9 and Folliculitis L73.9 [facility] [address] 93730- 8416 Feb, [facility] [address] 49078- 8789 Feb, Postconcussion syndrome F07.81 and Folliculitis L73.9 [facility] [address] 75576- 6814 Feb, Postconcussion syndrome F07.81 [facility] [address] 19449- 0490 Feb, [facility] [address] [id number] Feb, [facility] [address] [id number] Feb, Dental caries extending into dentin K02.62 [facility] [address] 34476- 9920 January, [facility] [address] 84058- 7458 January, [facility] [id number] [place] [address] 21714- 3071 January, Onychomycosis B35.1 [facility] [address] [id number] January, Dental caries extending into dentin K02.62 [facility] [address] 05137- 3387 Dec, [facility] [address] 94323- 4331 Dec, [facility] [address] 75289- 5567 Dec, [facility] [address] 48501- 2548 Dec, Mild intellectual disability F70 ; Depression, unspecified depression type F32.9 ; Anxiety F41.9 and BMI 45.0-49.9, adult Z68.42 [facility] [address] 01248- 5024 Dec, Folliculitis L73.9 [facility] [address] 55356- 2431 Dec, Mild intellectual disability F70 ; Unsteady gait R26.81 and Generalized weakness R53.1 [facility] [address] [id number] Nov, [facility] [address] 51018- 0187 Nov, [facility] [address] 61742- 2547 Nov, Folliculitis L73.9 ; Tinea corporis B35.4 and Onychomycosis B35.1 [facility] [address] [id number] Oct, [facility] [address] 25113- 2368 Oct, Mood disorder F39 [facility] [address] 88664- 3940 Oct, [facility] [address] 86601 -2901 Oct, Left hip pain M25.552 and Muscle spasm M62.838 [facility] [address] [id number] Oct, [facility] [facility] [address] [place] [address] 07039- 4254 Oct, 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 ; Anxiety F41.9 ; Onychomycosis B35.1 ; BMI 40.0-44.9, adult Z68.41 and Alkaline phosphatase elevation R74.8 [facility] [id number] [place] [address] 11154- 2009 Sep, Mild intellectual disability F70 [facility] [id number] [place] [address] 18990- 3614 Sep, [facility] [id number] [place] [address] 03352- 5345 Sep, Alkaline phosphatase elevation R74.8 [facility] [id number] [place] [address] 58883- 2241 Sep, Alkaline phosphatase elevation R74.8 [facility] [address] [place] [address] 71706- 0705 Sep, Mood disorder F39 ; Attention deficit hyperactivity disorder (ADHD), predominantly inattentive type F90.0 ; Irritable bowel syndrome with both constipation and diarrhea K58.2 and Seizures R56.9 [facility] [address] [place] [address] 86686- 4372 Sep, Mild intellectual disability F70 ; Depression, unspecified depression type F32.9 ; Anxiety F41.9 and BMI 40.0-44.9, adult Z68.41 [facility] [address] [place] [address] 58778- 9032 Sep, [facility] [id number] [place] [address] 80303- 0938 Sep, [facility] [address] [place] [address] 59207- 7526 Sep, [facility] [id number] [place] [address] [phone]- 3206 Sep, [facility] [address] [place] [address] [id number]- 4868 Sep, [facility] [id number] [place] [address] [id number] Aug, Encounter for dental examination and cleaning without abnormal findings Z01.20 [facility] [id number] [place] [address] [id number] Aug, Dental examination Z01.20 [facility] [id number] [place] [address] 673575- 3730 Aug, [facility] [id number] [place] [id number]- 0022 Aug, Depression, unspecified depression type F32.9 ; Mild intellectual disability F70 and Anxiety F41.9 [place] [facility] [address] 26508- 0689 Aug, Mood disorder F39 ; Attention deficit hyperactivity disorder (ADHD), predominantly inattentive type F90.0 ; Irritable bowel syndrome with both constipation and diarrhea K58.2 and Seizures R56.9 [facility] [id number] [place] [address] 37127- 6626 Aug, Depression, unspecified depression type F32.9 ; Mild intellectual disability F70 and Anxiety F41.9 [facility] [id number] [place] [address] 59681- 5542 Aug, [facility] [address] [place] [address] [id number] Jul, Dental examination Z01.20 and Dental caries K02.9 [facility] [id number] [place] [id number]- [address]20 Jun, Unspecified mood [affective] disorder F39 and 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 [facility] [address] [place] [address] [id number] May, Encounter for dental examination and cleaning without abnormal findings Z01.20 [facility] [address] [id number] [id number] Mar, Dental examination Z01.20 [facility] [address] [id number][place] [id number] Sep, Dental examination Z01.20 [facility] [address] [id number][place] [id number] January, Dental examination Z01.20 [facility] [address] [id number][place] [id number] Dec, Encounter for dental examination Z01.20 [facility] [id number] [place] [address] [id number] Dec, Dental examination Z01.20 [facility] [address] [id number][place] [id number] Nov, Dental examination Z01.20 [facility] [address] [id number][place] [id number] Jul, Encounter for dental examination Z01.20 and Dental examination Z01.20 [facility] [address] [id number][place] [id number] Apr, Dental examination V72.2 [facility] [address] [id number][place] [id number] Mar, Dental examination V72.2 [facility] [address] [id number], [place] [address] January, [facility] [address] [id number], [place] [address] January, [facility] [address] [id number], [place] [address] January, [facility] [address] [id number], [place] [address] January, [facility] [address] [id number], [place] [address] Jul, IMMUNIZATIONS No Known Immunizations SOCIAL HISTORY Never Assessed REASON FOR VISIT Medication question PLAN OF CARE VITAL SIGNS MEDICATIONS Unknown [...] History D&C 2004 Surgical History foot surgery 2005 Surgical History Port replaced 2018 Hospitalization History at least 5 inpatient treatments, last one in 2005 2005 and before
--- OUTSIDE RECORDS SUMMARY | 2018-06-16 09:25 | XMS REPORT ---
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 Name Role Phone YU SAMUEL Unavailable PROBLEMS Type Condition ICD9-CM Code UYN47-RM Code Onset Dates Condition Status SNOMED Code Problem Unspecified mood [affective] disorder F39 Active 03131887 Problem Anxiety F41.9 Active 01307544 Problem 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 Active 708249096 Problem Irritable bowel syndrome with both constipation and diarrhea K58.2 Active 46858132 Problem Attention deficit hyperactivity disorder (ADHD), predominantly inattentive type F90.0 Active 84452761 Problem Mood disorder F39 Active 09018009 Problem Environmental allergies Z91.09 Active 684808854 Problem Postconcussion syndrome F07.81 Active 44524574 Problem Mild intellectual disability F70 Active 71315629 Problem Depression, unspecified depression type F32.9 Active 09797956 Problem Unsteady gait R26.81 Active 39764356 Problem 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 Active 30779219 ALLERGIES Substance Reaction Event Type Date Status Zithromax Unknown Drug Allergy Feb, Active Promethazine HCl n/v Drug Allergy Feb, Active Macrobid n/v Drug Allergy Feb, Active Tetracycline HCl Unknown Drug Allergy Feb, Active Sulfamethoxazole dizziness Drug Allergy Feb, Active [place] Carbonate Unknown Drug Allergy Feb, Active Levaquin [...] Feb, Active ENCOUNTERS Encounter Location Date Diagnosis [facility] [id number] [place] [address] 36822- 8540 Jun, [facility] [address] [address]- [address] May, [facility] [id number] [place] [address] 47863- 1514 Apr, Nail hypertrophy L60.2 and Self-care deficit for grooming and hygiene Z74.1 [facility] [id number] [place] [address] 43062- 0407 Apr, Environmental allergies Z91.09 [facility] [address] 35963- 6536 Apr, [facility] [address] 49257- 7095 Apr, [facility] [address] 25359- 2190 Apr, [facility] [id number] [place] [address] 88190- 8836 Apr, Environmental allergies Z91.09 [facility] [id number] [place] [address] 52171- 8920 Apr, [facility] [id number] [place] [address] 83858- 2677 Apr, Anxiety F41.9 [facility] [id number] [place] [address] 20287- 6962 Mar, Nail hypertrophy L60.2 and Self-care deficit for hygiene R46.0 [facility] [address] 09472- 6808 Mar, [facility] [id number] [place] [address] 27842- 2208 Mar, [facility] [id number] [place] [address] 79522- 8559 Mar, Anxiety F41.9 ; Mood disorder F39 and Dysfunction of both eustachian tubes H69.83 [facility] [address] 58612- 1323 Mar, Seizures R56.9 [facility] [address] 08696- 4695 Mar, Folliculitis L73.9 [facility] [address] 65701- 2799 Mar, Mild intellectual disability F70 ; Depression, unspecified depression type F32.9 and Anxiety F41.9 [facility] [address] 25297- 9816 Mar, Seizures R56.9 and Folliculitis L73.9 [facility] [address] 36060- 8305 Feb, [facility] [address] 51147- 3990 Feb, Postconcussion syndrome F07.81 and Folliculitis L73.9 [facility] [address] 47134- 3797 Feb, Postconcussion syndrome F07.81 [facility] [id number] [place] [address] 91574- 4435 Feb, [facility] [id number] [place] [address] [phone] Feb, [facility] [address] [id number] Feb, Dental caries extending into dentin K02.62 [facility] [id number] [place] [address] 72668- 5281 January, [facility] [id number] [place] [address] 69415- 5357 January, [facility] [id number] [place] [address] 49061- 2381 January, Onychomycosis B35.1 [facility] [address] [id number] January, Dental caries extending into dentin K02.62 [facility] [address] 52269- 5420 Dec, [facility] [address] 22040- 0521 Dec, [facility] [address] 06672- 6633 Dec, [facility] [address] 60415- 5255 Dec, Mild intellectual disability F70 ; Depression, unspecified depression type F32.9 ; Anxiety F41.9 and BMI 45.0-49.9, adult Z68.42 [facility] [id number] [place] [address] 35116- 6632 Dec, Folliculitis L73.9 [facility] [address] 84721- 3805 Dec, Mild intellectual disability F70 ; Unsteady gait R26.81 and Generalized weakness R53.1 [facility] [id number] [place] [address] [phone] Nov, [facility] [id number] [place] [address] 69005- 5225 Nov, [facility] [id number] [place] [address] 45531- 9047 Nov, Folliculitis L73.9 ; Tinea corporis B35.4 and Onychomycosis B35.1 [facility] [id number] [place] [address] [id number] Oct, [facility] [address] 16770- 6201 Oct, Mood disorder F39 [facility] [id number] [place] [address] 73881- 4495 Oct, [facility] [id number] [place] [address] 52213 -8033 Oct, Left hip pain M25.552 and Muscle spasm M62.838 [facility] [address] [place] [address] [phone] Oct, [facility] [id number] [place] [address] 90882- 7031 Oct, 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 ; Anxiety F41.9 ; Onychomycosis B35.1 ; BMI 40.0-44.9, adult Z68.41 and Alkaline phosphatase elevation R74.8 [facility] [id number] [place] [address] 43442- 2776 Sep, Mild intellectual disability F70 [facility] [id number] [place] [address] 81585- 6762 Sep, [facility] [id number] [place] [address] 30211- 7675 Sep, Alkaline phosphatase elevation R74.8 [facility] [id number] [place] [address] 51937- 3474 Sep, Alkaline phosphatase elevation R74.8 [facility] [id number] [place] [address] 36675- 7686 Sep, Mood disorder F39 ; Attention deficit hyperactivity disorder (ADHD), predominantly inattentive type F90.0 ; Irritable bowel syndrome with both constipation and diarrhea K58.2 and Seizures R56.9 [facility] [id number] [place] [address] 39624- 5265 Sep, Mild intellectual disability F70 ; Depression, unspecified depression type F32.9 ; Anxiety F41.9 and BMI 40.0-44.9, adult Z68.41 [facility] [address] [address]- 4959 Sep, [facility] [id number] [place] [address] 67933- 4626 Sep, [facility] [address] [address]- 3557 Sep, [facility] [id number] [place] [address] 24310- 0647 Sep, [facility] [id number] [place] [address] 46022- 2005 Sep, [facility] [id number] [place] [address] [phone] Aug, Encounter for dental examination and cleaning without abnormal findings Z01.20 [facility] [id number] [place] [address] [phone] Aug, Dental examination Z01.20 [facility] [address] [place] [address] 34412- 7127 Aug, [facility] [id number] [place] [address] 58367- 8998 Aug, Depression, unspecified depression type F32.9 ; Mild intellectual disability F70 and Anxiety F41.9 [facility] [address] [place] [address] 92255- 3407 Aug, Mood disorder F39 ; Attention deficit hyperactivity disorder (ADHD), predominantly inattentive type F90.0 ; Irritable bowel syndrome with both constipation and diarrhea K58.2 and Seizures R56.9 [facility] [address] [place] [address] 92139- 6992 Aug, Depression, unspecified depression type F32.9 ; Mild intellectual disability F70 and Anxiety F41.9 [facility] [id number] [place] [address] 16936- 8502 Aug, [facility] [id number] [place] [address] [phone] Jul, Dental examination Z01.20 and Dental caries K02.9 [facility] [id number] [place] [address] 73168- 1716 Jun, Unspecified mood [affective] disorder F39 and 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 [facility] [id number] [place] [address] [phone] May, Encounter for dental examination and cleaning without abnormal findings Z01.20 [facility] [id number] [place] [address] [phone] Mar, Dental examination Z01.20 [facility] [id number] [place] [address] [id number] Sep, Dental examination Z01.20 [facility] [id number] [place] [address] [phone] January, Dental examination Z01.20 [facility] [id number] [place] [address] [phone] Dec, Encounter for dental examination Z01.20 [facility] [id number] [place] [address] [phone] Dec, Dental examination Z01.20 [facility] [id number] [place] [address] [phone] Nov, Dental examination Z01.20 [facility] [id number] [place] [address] [phone] Jul, Encounter for dental examination Z01.20 and Dental examination Z01.20 [facility] [id number] [place] [address] [phone] Apr, Dental examination V72.2 [facility] [id number] [place] [address] [phone] Mar, Dental examination V72.2 [facility] [id number] [place] [address] 16708- 2546 January, [facility] [address] [facility] [id number] [place] [address]- 0696 January, [facility] [address] [facility] [id number] [address]- 2733 January, [facility] [address] [facility] [id number] [address]- 9402 January, [facility] [address] [facility] [id number] [address]- 0500 Jul, IMMUNIZATIONS No Known Immunizations SOCIAL HISTORY Never Assessed REASON FOR VISIT ER f/u [facility], PT wants refills on allergy and estrogen medication, 03/10/18 [facility] ER Minor head injury PLAN OF CARE VITAL SIGNS Height 59 in 2018-03-16 Weight 230 lbs 2018-03-16 Temperature 98.8 degrees Fahrenheit 2018-03-16 Heart Rate 102 bpm 2018-03-16 Respiratory Rate 20 2018-03-16 BMI 46.45 kg/m2 2018-03-16 Blood pressure systolic 118 mmHg 2018-03-16 Blood pressure diastolic 64 mmHg 2018-03-16 MEDICATIONS Medication Instructions Dosage Frequency Start Date End Date Duration Status VESIcare 5 mg Orally Once a day 1 tablet 24h Active One-A-Day Bone Strength Active Verapamil HCl ER 120 MG Orally Once a day 1 tablet 24h Active Meclizine HCl 25 MG Orally TID 1 tablet 8h Active Ketoconazole 2 % Externally Once a day 1 application to affected area 24h Nov, Not-Taking Elmiron 100 mg Orally Three times a day 1 capsule on an empty stomach 8h Active Protonix 40 mg Orally Once a day 1 tablet 24h Active Premarin 0.625 MG Orally Once a day 1 tablet 24h Feb, 30 day(s ) Active Dicyclomine HCl 20MG TAKE TWO TABLETS BY MOUTH 4 TIMES DAILY Active Blood Glucose Monitor System w/Device test blood sugar 8h Active Simvastatin 20 mg Orally Once a day 1 tablet 24h Active Lamotrigine 100 mg Orally Twice a day 1 tablet 12h Active Topiramate 100 mg Orally Twice a day 1 tablet 12h Active Calcium 600-400 MG-UNIT Orally Once a day 24h Active Amitriptyline HCl 50MG TAKE ONE TABLET BY MOUTH AT BEDTIME Active Phenytoin 100 mg 3 tablets 12h Active Diflucan 100 MG Orally Once a day 1 tablet 24h Active Strattera 100 mg Orally Once a day 1 capsule 24h 30 Active Loratadine 10 mg Orally Once a day 1 tablet 24h Active Aspirin 81 MG 1 tablet Active Blood Glucose Test Strip - test blood sugar 8h Active RESULTS No Results PROCEDURES Procedure Date Ordered Result Body Site [facility] VISIT ESTABLISHED PATIENT March 16, 2018 INSTRUCTIONS MEDICATIONS ADMINISTERED No Known Medications [...]
--- OUTSIDE RECORDS SUMMARY | 2018-06-16 09:25 | XMS REPORT ---
Author Author YU SAMUEL Organization [facility] Address [address] [place] [address] Care Team Providers Care Director Software Quality Assurance Name Role Phone YU SAMUEL Unavailable PROBLEMS Type Condition ICD9-CM Code YUU11-DN Code Onset Dates Condition Status SNOMED Code Problem Unspecified mood [affective] disorder F39 Active 15640232 Problem Anxiety F41.9 Active 77454942 Problem 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 Active 679718854 Problem Irritable bowel syndrome with both constipation and diarrhea K58.2 Active 03629737 Problem Attention deficit hyperactivity disorder (ADHD), predominantly inattentive type F90.0 Active 83782001 Problem Mood disorder F39 Active 92847323 Problem Environmental allergies Z91.09 Active 005150827 Problem Postconcussion syndrome F07.81 Active 07212919 Problem Mild intellectual disability F70 Active 20067472 Problem Depression, unspecified depression type F32.9 Active 17083508 Problem Unsteady gait R26.81 Active 96104068 Problem 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 Active 38031859 ALLERGIES No Information ENCOUNTERS Encounter Location Date Diagnosis [facility] [address], [place] [address] Jun, [facility] [id number] [place] [address] 68835- 4462 May, [facility] [id number] [place] [address] 81898- 6279 Apr, Environmental allergies Z91.09 [facility] [id number] [place] [address] 76534- 6130 Apr, [facility] [address], [place] [address] 6328 Apr, Nail hypertrophy L60.2 and Self-care deficit for grooming and hygiene Z74.1 [facility] [id number] [place] [address] 75087- 2722 Apr, Environmental allergies Z91.09 [facility] [id number] [place] [address] 63220- 9092 Apr, [facility] [id number] [place] [address] 80127- 9765 Apr, [facility] [address] 67558- 6676 Apr, [facility] [address] 12176- 9701 Apr, Environmental allergies Z91.09 [facility] [id number] [place] [address] 28912- 6235 Apr, [facility] [address] 67630- 0267 Apr, Anxiety F41.9 [facility] [id number] [place] [address] 57191- 9704 Mar, Nail hypertrophy L60.2 and Self-care deficit for hygiene R46.0 [facility] [id number] [place] [address] 72633- 9526 Mar, [facility] [id number] [place] [address] 46785- 1320 Mar, [facility] [id number] [place] [address] 88683- 1183 Mar, Anxiety F41.9 ; Mood disorder F39 and Dysfunction of both eustachian tubes H69.83 [facility] [id number] [place] [address] 26333- 8385 Mar, Seizures R56.9 [facility] [id number] [place] [address] 32806- 3139 Mar, Folliculitis L73.9 [facility] [id number] [place] [address] 55261- 2696 Mar, Mild intellectual disability F70 ; Depression, unspecified depression type F32.9 and Anxiety F41.9 [facility] [id number] [place] [address] 25427- 5027 Mar, Seizures R56.9 and Folliculitis L73.9 [facility] [address] 45589- 0540 Feb, [facility] [id number] [place] [address] 23054- 6445 Feb, Postconcussion syndrome F07.81 and Folliculitis L73.9 [facility] [id number] [place] [address] 56754- 8234 Feb, Postconcussion syndrome F07.81 [facility] [id number] [place] [address] 76912- 0591 Feb, [facility] [id number] [place] [address] [id number] Feb, [facility] [address] [id number] Feb, Dental caries extending into dentin K02.62 [facility] [id number] [place] [address] 86489- 1672 January, [facility] [id number] [place] [address] 29981- 6374 January, [facility] [id number] [place] [address] 87116- 0639 January, Onychomycosis B35.1 [facility] [id number] [place] [address] [id number] January, Dental caries extending into dentin K02.62 [facility] [id number] [place] [address] 96720- 3868 Dec, [facility] [id number] [place] [address] 92805- 1854 Dec, [facility] [address] 46580- 1273 Dec, [facility] [id number] [place] [address] 53009- 6766 Dec, Mild intellectual disability F70 ; Depression, unspecified depression type F32.9 ; Anxiety F41.9 and BMI 45.0-49.9, adult Z68.42 [facility] [id number] [place] [address] 18553- 0775 Dec, Folliculitis L73.9 [place] [address] 56724- 4260 Dec, Mild intellectual disability F70 ; Unsteady gait R26.81 and Generalized weakness R53.1 [facility] [id number] [place] [address] [id number] Nov, [facility] [id number] [place] [address] 87992- 8750 Nov, [facility] [address] 68432- 1521 Nov, Folliculitis L73.9 ; Tinea corporis B35.4 and Onychomycosis B35.1 [facility] [id number] [place] [address] [id number] Oct, [facility] [id number] [place] [address] 19956- 7831 Oct, Mood disorder F39 [facility] [id number] [place] [address] 08006- 9543 Oct, [facility] [id number] [place] [address] 83237 -9311 Oct, Left hip pain M25.552 and Muscle spasm M62.838 [facility] [address] [place] [id number] 12 Oct, 2017 [place] [id number] [place] [address] 90776- 0826 Oct, 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 ; Anxiety F41.9 ; Onychomycosis B35.1 ; BMI 40.0-44.9, adult Z68.41 and Alkaline phosphatase elevation R74.8 [place] [id number] [place] [address] 96934- 2803 Sep, Mild intellectual disability F70 [place] [id number] [place] [address] 89605- 6716 Sep, [place] [id number] [place] [address] 70681- 9924 Sep, Alkaline phosphatase elevation R74.8 [place] [facility] [id number] [place] [address] 62271- 1688 Sep, Alkaline phosphatase elevation R74.8 [place] [id number] [place] [address] 88715- 9675 Sep, Mood disorder F39 ; Attention deficit hyperactivity disorder (ADHD), predominantly inattentive type F90.0 ; Irritable bowel syndrome with both constipation and diarrhea K58.2 and Seizures R56.9 [place] [address] [place] [address] 51177- 5584 Sep, Mild intellectual disability F70 ; Depression, unspecified depression type F32.9 ; Anxiety F41.9 and BMI 40.0-44.9, adult Z68.41 [place] [address] [place] [address] 61281- 4211 Sep, [place] [id number] [place] [address] 96073- 2816 Sep, [place] [id number] [place] [address] 10447- 5829 Sep, [place] [address] [place] [address] 08 Sep, 2017 [facility] [id number] [place] [address] 14786- 9636 Sep, [facility] [id number] [place] [address] [id number] Aug, Encounter for dental examination and cleaning without abnormal findings Z01.20 [facility] [id number] [place] [address] [id number] Aug, Dental examination Z01.20 [facility] [id number] [place] [address] 990524- 8029 Aug, [facility] [id number] [place] [address] 95801- 7514 Aug, Depression, unspecified depression type F32.9 ; Mild intellectual disability F70 and Anxiety F41.9 [facility] [id number] [place] [address] 20710- 8952 08 Aug, 2017 Mood disorder F39 ; Attention deficit hyperactivity disorder (ADHD), predominantly inattentive type F90.0 ; Irritable bowel syndrome with both constipation and diarrhea K58.2 and Seizures R56.9 [facility] [id number] [place] [address] 80619- 9781 Aug, Depression, unspecified depression type F32.9 ; Mild intellectual disability F70 and Anxiety F41.9 [facility] [id number] [place] [address] 74233- 6206 Aug, [facility] [address] [place] [address] [id number] Jul, Dental examination Z01.20 and Dental caries K02.9 [facility] [id number] [place] [address] 038257- 1886 Jun, Unspecified mood [affective] disorder F39 and 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 [facility] [id number] [place] [address] [id number] May, Encounter for dental examination and cleaning without abnormal findings Z01.20 [facility] [address] [id number] [id number] Mar, Dental examination Z01.20 [facility] [address] [id number] [id number] Sep, Dental examination Z01.20 [facility] [address] [id number][place] [id number] January, Dental examination Z01.20 [facility] [id number] [place] [address] [id number] Dec, Encounter for dental examination Z01.20 [facility] [id number] [place] [address] [id number] Dec, Dental examination Z01.20 [facility] [address] [id number] [id number] Nov, Dental examination Z01.20 [facility] [id number] [place] [address] [id number] Jul, Encounter for dental examination Z01.20 and Dental examination Z01.20 [facility] [address] [id number] [id number] Apr, Dental examination V72.2 [facility] [address] [id number] [id number] Mar, Dental examination V72.2 [facility] [address] [id number], [place] [address]- 5216 January, [facility] [address] [id number], [place] [address]- 0396 January, [facility] [address] [id number], [place] [address]- 0726 January, [facility] [address] [id number], [place] [address]- 3532 January, [facility] [id number] [place] [address] [id number]- 7831 Jul, IMMUNIZATIONS No Known Immunizations SOCIAL HISTORY Never Assessed REASON FOR VISIT // PLAN OF CARE VITAL SIGNS MEDICATIONS Medication Instructions Dosage Frequency Start Date End Date Duration Status Meclizine HCl 25 MG Orally 4 times a day 1 tablet 6h 30 days Active RESULTS No Results PROCEDURES [...]
--- OUTSIDE RECORDS SUMMARY | 2018-06-16 09:25 | XMS REPORT ---
Author Author YU SAMUEL Organization [facility] Address [address] [place] [address] Care Team Providers Care Work Station Support Specialist Name Role Phone YU SAMUEL Unavailable PROBLEMS Type Condition ICD9-CM Code JMV17-GE Code Onset Dates Condition Status SNOMED Code Problem Unspecified mood [affective] disorder F39 Active 57093169 Problem Anxiety F41.9 Active 87721566 Problem 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 Active 578551981 Problem Irritable bowel syndrome with both constipation and diarrhea K58.2 Active 69894250 Problem Attention deficit hyperactivity disorder (ADHD), predominantly inattentive type F90.0 Active 68352143 Problem Mood disorder F39 Active 90110082 Problem Environmental allergies Z91.09 Active 661709184 Problem Postconcussion syndrome F07.81 Active 75660369 Problem Mild intellectual disability F70 Active 58101483 Problem Depression, unspecified depression type F32.9 Active 15137250 Problem Unsteady gait R26.81 Active 63162291 Problem 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 Active 42526635 ALLERGIES No Information ENCOUNTERS Encounter Location Date Diagnosis [facility] [address], [place] [address]- 6059 Jun, [facility] [id number] [place] [address] 57570- 7187 May, [facility] [address] [place] [address] 04441- 1288 Apr, [facility] [id number] [place] [address] 52719- 9551 Apr, [facility] [address] [place] [address] 54761- 0701 Apr, Nail hypertrophy L60.2 and Self-care deficit for grooming and hygiene Z74.1 [facility] [id number] [place] [address] 10702- 6641 Apr, Environmental allergies Z91.09 [facility] [id number] [place] [address] 52628- 4050 Apr, [facility] [address] 80830- 7934 Apr, [facility] [address] 26200- 7670 Apr, [facility] [address] 68527- 7561 Apr, Environmental allergies Z91.09 [facility] [address] 56787- 7636 Apr, [facility] [address] 12712- 3013 Apr, Anxiety F41.9 [facility] [address] 98404- 8951 Mar, Nail hypertrophy L60.2 and Self-care deficit for hygiene R46.0 [facility] [id number] [place] [address] 23234- 3643 Mar, [facility] [id number] [place] [address] 61933- 3073 Mar, [facility] [id number] [place] [address] 97021- 0790 Mar, Anxiety F41.9 ; Mood disorder F39 and Dysfunction of both eustachian tubes H69.83 [facility] [address] 16850- 5780 Mar, Seizures R56.9 [facility] [id number] [place] [address] 05427- 6224 Mar, Folliculitis L73.9 [facility] [address] [place] [address]- 5690 Mar, Mild intellectual disability F70 ; Depression, unspecified depression type F32.9 and Anxiety F41.9 [facility] [address] 24177- 5982 Mar, Seizures R56.9 and Folliculitis L73.9 [facility] [address] 23177- 0075 Feb, [facility] [address] 60768- 8916 Feb, Postconcussion syndrome F07.81 and Folliculitis L73.9 [facility] [address] 85865- 7068 Feb, Postconcussion syndrome F07.81 [facility] [address] 06808- 2193 Feb, [facility] [address] [id number] Feb, [facility] [address] [id number] Feb, Dental caries extending into dentin K02.62 [facility] [address] 03067- 2594 January, [facility] [address] 68413- 1001 January, [facility] [id number] [place] [address] 11543- 5501 January, Onychomycosis B35.1 [facility] [address] [id number] January, Dental caries extending into dentin K02.62 [facility] [address] 51080- 8415 Dec, [facility] [address] 22609- 0626 Dec, [facility] [address] 17452- 3535 Dec, [facility] [address] 01829- 2408 Dec, Mild intellectual disability F70 ; Depression, unspecified depression type F32.9 ; Anxiety F41.9 and BMI 45.0-49.9, adult Z68.42 [facility] [address] 89616- 3530 Dec, Folliculitis L73.9 [facility] [address] 02549- 6801 Dec, Mild intellectual disability F70 ; Unsteady gait R26.81 and Generalized weakness R53.1 [facility] [address] [id number] Nov, [facility] [address] 08848- 6210 Nov, [facility] [address] 90681- 8162 Nov, Folliculitis L73.9 ; Tinea corporis B35.4 and Onychomycosis B35.1 [facility] [address] [id number] Oct, [facility] [address] 80941- 0395 Oct, Mood disorder F39 [facility] [address] 59994- 8373 Oct, [facility] [address] 84300 -7760 Oct, Left hip pain M25.552 and Muscle spasm M62.838 [facility] [address] [id number] Oct, [place] [address] [place] [address] 43539- 1260 Oct, 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 ; Anxiety F41.9 ; Onychomycosis B35.1 ; BMI 40.0-44.9, adult Z68.41 and Alkaline phosphatase elevation R74.8 [place] [id number] [place] [address] 92138- 6447 Sep, Mild intellectual disability F70 [place] [id number] [place] [address] 94304- 2323 Sep, [place] [id number] [place] [address] 13588- 4906 Sep, Alkaline phosphatase elevation R74.8 [place] [id number] [place] [address] 47170- 1559 Sep, Alkaline phosphatase elevation R74.8 [place] [address] [place] [address] 29999- 8855 Sep, Mood disorder F39 ; Attention deficit hyperactivity disorder (ADHD), predominantly inattentive type F90.0 ; Irritable bowel syndrome with both constipation and diarrhea K58.2 and Seizures R56.9 [place] [address] [place] [address] 31754- 2197 Sep, Mild intellectual disability F70 ; Depression, unspecified depression type F32.9 ; Anxiety F41.9 and BMI 40.0-44.9, adult Z68.41 [place] [address] [place] [address] 22765- 7178 Sep, [place] [id number] [place] [address] 42397- 1543 Sep, [place] [address] [place] [address] 26588- 8486 Sep, [place] [id number] [place] [address] [id number]- 3566 Sep, [facility] [address] [place] [address] [id number]- 6614 Sep, [facility] [id number] [place] [address] [id number] Aug, Encounter for dental examination and cleaning without abnormal findings Z01.20 [facility] [id number] [place] [address] [id number] Aug, Dental examination Z01.20 [facility] [id number] [place] [address] 375199- 6418 Aug, [facility] [id number] [place] [address]- 5201 Aug, Depression, unspecified depression type F32.9 ; Mild intellectual disability F70 and Anxiety F41.9 [place] [address] 59398- 8035 Aug, Mood disorder F39 ; Attention deficit hyperactivity disorder (ADHD), predominantly inattentive type F90.0 ; Irritable bowel syndrome with both constipation and diarrhea K58.2 and Seizures R56.9 [facility] [id number] [place] [address] 67930- 5308 Aug, Depression, unspecified depression type F32.9 ; Mild intellectual disability F70 and Anxiety F41.9 [place] [id number] [place] [address] 88779- 5311 Aug, [facility] [address] [place] [address] [id number] Jul, Dental examination Z01.20 and Dental caries K02.9 [place] [id number] [place] [id number]- 8132 Jun, Unspecified mood [affective] disorder F39 and 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 [facility] [address] [place] [address] [id number] May, Encounter for dental examination and cleaning without abnormal findings Z01.20 [facility] [address] [id number] [id number] Mar, Dental examination Z01.20 [facility] [address] [id number][place] [id number] Sep, Dental examination Z01.20 [facility] [address] [id number][place] [id number] January, Dental examination Z01.20 [facility] [address] [id number][place] [id number] Dec, Encounter for dental examination Z01.20 [facility] [id number] [place] [address] [id number] Dec, Dental examination Z01.20 [facility] [address] [id number][place] [id number] Nov, Dental examination Z01.20 [facility] [address] [id number][place] [id number] Jul, Encounter for dental examination Z01.20 and Dental examination Z01.20 [facility] [address] [id number][place] [id number] Apr, Dental examination V72.2 [facility] [address] [id number][place] [id number] Mar, Dental examination V72.2 [facility] [address] [id number], [place] [address] January, [facility] [address] [id number], [place] [address] January, [facility] [address] [id number], [place] [address] January, [facility] [address] [id number], [place] [address] January, [facility] [address] [id number], [place] [address] Jul, IMMUNIZATIONS No Known Immunizations SOCIAL HISTORY Never Assessed REASON FOR VISIT premarin note PLAN OF CARE VITAL SIGNS MEDICATIONS Medication Instructions Dosage Frequency Start Date End Date Duration Status Estradiol 0.5 MG Orally Once a day 1 tablet 24h 30 days Active RESULTS No Results PROCEDURES [...]
--- OUTSIDE RECORDS SUMMARY | 2018-06-16 09:26 | XMS REPORT ---
Author Author YU SAMUEL Organization [facility] Address [address] [place] [address] Care Team Providers Care Fur Vault Attendant Name Role Phone YU SAMUEL Unavailable PROBLEMS Type Condition ICD9-CM Code DUC51-VF Code Onset Dates Condition Status SNOMED Code Problem Unspecified mood [affective] disorder F39 Active 98272135 Problem Anxiety F41.9 Active 04646252 Problem 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 Active 143888376 Problem Irritable bowel syndrome with both constipation and diarrhea K58.2 Active 14729117 Problem Attention deficit hyperactivity disorder (ADHD), predominantly inattentive type F90.0 Active 30785655 Problem Mood disorder F39 Active 23497886 Problem Environmental allergies Z91.09 Active 401629792 Problem Postconcussion syndrome F07.81 Active 24670610 Problem Mild intellectual disability F70 Active 42990471 Problem Depression, unspecified depression type F32.9 Active 75483661 Problem Unsteady gait R26.81 Active 06057381 Problem 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 Active 14525856 ALLERGIES No Information ENCOUNTERS Encounter Location Date Diagnosis [facility] [address] [address] Jun, [facility] [address] [address] 7883 May, [facility] [address] [address] 9873 Apr, [facility] [id number] [place] [address] 26296- 9403 Apr, [facility] [address] [address] 6135 Apr, [facility] [id number] [place] [address] 54365- 1133 Apr, [facility] [id number] [place] [address] 94516- 4075 Apr, Environmental allergies Z91.09 [facility] [id number] [place] [address] 96388- 1546 Apr, [place] [address] 77826- 9050 Apr, Anxiety F41.9 [place] [address] 61046- 4260 Mar, Nail hypertrophy L60.2 and Self-care deficit for hygiene R46.0 [place] [address] 00571- 8658 Mar, [place] [address] 26721- 2865 Mar, [place] [address] 87017- 0495 Mar, Anxiety F41.9 ; Mood disorder F39 and Dysfunction of both eustachian tubes H69.83 [place] [id number] [place] [address] 42357- 3047 Mar, Seizures R56.9 [place] [id number] [place] [address] 48531- 8203 Mar, Folliculitis L73.9 [place] [id number] [place] [address] 24370- 7146 Mar, Mild intellectual disability F70 ; Depression, unspecified depression type F32.9 and Anxiety F41.9 [place] [id number] [place] [address] 50093- 4756 Mar, Seizures R56.9 and Folliculitis L73.9 [place] [id number] [place] [address] 36882- 8733 Feb, [place] [address] [address] 0729 Feb, Postconcussion syndrome F07.81 and Folliculitis L73.9 [facility] [id number] [place] [address] 47472- 5502 Feb, Postconcussion syndrome F07.81 [facility] [id number] [place] [address] 42655- 7352 Feb, [facility] [id number] [place] [address] [id number] Feb, [facility] [address] [id number] Feb, Dental caries extending into dentin K02.62 [facility] [id number] [place] [address] 27248- 3743 January, [facility] [id number] [place] [address] 11085- 3300 January, [facility] [id number] [place] [address] 77262- 0804 January, Onychomycosis B35.1 [facility] [id number] [place] [address] [id number] January, Dental caries extending into dentin K02.62 [facility] [address] [place] [address] 34769- 2206 Dec, [facility] [id number] [place] [address] 29199- 7418 Dec, [facility] [id number] [place] [address] 39729- 4935 Dec, [facility] [id number] [place] [address] 41951- 9433 Dec, Mild intellectual disability F70 ; Depression, unspecified depression type F32.9 ; Anxiety F41.9 and BMI 45.0-49.9, adult Z68.42 [facility] [id number] [place] [address] 54216- 3866 Dec, Folliculitis L73.9 [facility] [address] [id number]- 9073 Dec, Mild intellectual disability F70 ; Unsteady gait R26.81 and Generalized weakness R53.1 [facility] [address] [id number] 15 Nov, 2017 [facility] [address] 00899- 6972 14 Nov, 2017 [facility] [address] 350309- 5369 Nov, Folliculitis L73.9 ; Tinea corporis B35.4 and Onychomycosis B35.1 [facility] [id number] [place] [address] [id number] Oct, [facility] [id number] [place] [address] 35405- 2326 Oct, Mood disorder F39 [facility] [address] 48750- 5607 Oct, [facility] [address] 93611 -2229 Oct, Left hip pain M25.552 and Muscle spasm M62.838 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 ; Anxiety F41.9 ; Onychomycosis B35.1 ; BMI 40.0-44.9, adult Z68.41 and Alkaline phosphatase elevation R74.8 [facility] [address] 25245- 6279 Sep, Mild intellectual disability F70 [facility] [id number] [place] [address] 42816- 1510 Sep, [facility] [id number] [place] [id number] 4719 Sep, Alkaline phosphatase elevation R74.8 [facility] [id number] [place] [address] 51647- 9073 Sep, Alkaline phosphatase elevation R74.8 [facility] [id number] [place] [address] 23807- 3501 Sep, Mood disorder F39 ; Attention deficit hyperactivity disorder (ADHD), predominantly inattentive type F90.0 ; Irritable bowel syndrome with both constipation and diarrhea K58.2 and Seizures R56.9 [place] [id number] [place] [address] 27969- 6074 Sep, Mild intellectual disability F70 ; Depression, unspecified depression type F32.9 ; Anxiety F41.9 and BMI 40.0-44.9, adult Z68.41 [facility] [id number] [place] [address] 44622- 1150 Sep, [facility] [id number] [place] [address] 16548- 6512 Sep, [facility] [id number] [place] [address] 57068- 3254 Sep, [facility] [id number] [place] [address] 80011- 7515 Sep, [facility] [id number] [place] [address] 78971- 8113 Sep, [facility] [id number] [place] [address] [phone] Aug, Encounter for dental examination and cleaning without abnormal findings Z01.20 [facility] [id number] [place] [address] [id number] Aug, Dental examination Z01.20 [facility] [address] [place] [address] 54874- 3864 Aug, [facility] [id number] [place] [address] 59063- 7661 Aug, Depression, unspecified depression type F32.9 ; Mild intellectual disability F70 and Anxiety F41.9 [place] [id number] [place] [address] 93560- 6511 Aug, Mood disorder F39 ; Attention deficit hyperactivity disorder (ADHD), predominantly inattentive type F90.0 ; Irritable bowel syndrome with both constipation and diarrhea K58.2 and Seizures R56.9 [place] [id number] [place] [address] 65653- 1207 05 Aug, 2017 Depression, unspecified depression type F32.9 ; Mild intellectual disability F70 and Anxiety F41.9 [place] [id number] [place] [address] 94706- 9355 Aug, [facility] [address] [place] [address] [id number] Jul, Dental examination Z01.20 and Dental caries K02.9 [place] [id number] [place] [address] 80219- 6280 Jun, Unspecified mood [affective] disorder F39 and 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 [facility] [id number] [place] [address] [id number] May, Encounter for dental examination and cleaning without abnormal findings Z01.20 [facility] [id number] [place] [address] [id number] Mar, Dental examination Z01.20 [facility] [id number] [place] [address] [id number] Sep, Dental examination Z01.20 [facility] [id number] [place] [address] [id number] January, Dental examination Z01.20 [facility] [address] [id number] [id number] Dec, Encounter for dental examination Z01.20 [facility] [id number] [place] [address] [id number] Dec, Dental examination Z01.20 [facility] [address] [place] [address] [id number] Nov, Dental examination Z01.20 [facility] [id number] [place] [address] [id number] Jul, Encounter for dental examination Z01.20 and Dental examination Z01.20 [facility] [id number] [place] [address] [id number] Apr, Dental examination V72.2 [facility] [id number] [place] [address] [id number] Mar, Dental examination V72.2 [facility] [id number] [place] [address] 37128- 2546 January, [facility] [id number] [place] [address] 14954- 2546 January, [facility] [id number] [place] [address] 61587- 2546 January, [facility] [address] [place] [address] 57600- 2546 January, [facility] [id number] [place] [address] 70353- 2546 Jul, IMMUNIZATIONS No Known Immunizations SOCIAL HISTORY Never Assessed REASON FOR VISIT Refill request PLAN OF CARE VITAL SIGNS MEDICATIONS Unknown [...]
--- OUTSIDE RECORDS SUMMARY | 2018-06-16 09:26 | XMS REPORT ---
Author Author dereckJAMIE CHEN [facility] Address [address] [place] [address] Care Team Providers Care District Wildlife Manager Name Role Phone ortegaJAMIE Romero Unavailable PROBLEMS Type Condition ICD9-CM Code TNT20-RD Code Onset Dates Condition Status SNOMED Code Problem Unspecified mood [affective] disorder F39 Active 70966495 Problem Anxiety F41.9 Active 82634048 Problem 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 Active 453672660 Problem Irritable bowel syndrome with both constipation and diarrhea K58.2 Active 85197796 Problem Attention deficit hyperactivity disorder (ADHD), predominantly inattentive type F90.0 Active 68291458 Problem Mood disorder F39 Active 30883465 Problem Environmental allergies Z91.09 Active 769685738 Problem Postconcussion syndrome F07.81 Active 63506336 Problem Mild intellectual disability F70 Active 21330813 Problem Depression, unspecified depression type F32.9 Active 37764082 Problem Unsteady gait R26.81 Active 71198333 Problem 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 Active 76269025 ALLERGIES No Information ENCOUNTERS Encounter Location Date Diagnosis [facility] [address] [address]- 4664 Jun, [facility] [address] [address]- 8342 May, [facility] [id number] [place] [address] 09493- 0620 Apr, [facility] [id number] [place] [address] 39245- 2955 Apr, [facility] [address] [address]- 3623 Apr, [facility] [id number] [place] [address] 43669- 9608 Apr, [facility] [address] 71970- 0766 Apr, Environmental allergies Z91.09 [facility] [id number] [place] [address] 94836- 4913 Apr, [place] [address] 54770- 5965 Apr, Anxiety F41.9 [place] [address] 15042- 8812 Mar, Nail hypertrophy L60.2 and Self-care deficit for hygiene R46.0 [place] [id number] [place] [address] 45586- 1387 Mar, [place] [address] 33032- 4909 Mar, [place] [id number] [place] [address] 95643- 6997 Mar, Anxiety F41.9 ; Mood disorder F39 and Dysfunction of both eustachian tubes H69.83 [place] [id number] [place] [address] 15246- 8144 Mar, Seizures R56.9 [place] [address] 33514- 1338 Mar, Folliculitis L73.9 [place] [id number] [place] [address] 36256- 6514 Mar, Mild intellectual disability F70 ; Depression, unspecified depression type F32.9 and Anxiety F41.9 [place] [id number] [place] [address] 58977- 6165 Mar, Seizures R56.9 and Folliculitis L73.9 [place] [id number] [place] [address] 81534- 7490 Feb, [facility] [address] 2074 Feb, Postconcussion syndrome F07.81 and Folliculitis L73.9 [facility] [id number]- 6836 Feb, Postconcussion syndrome F07.81 [facility] [id number] [place] [address] 12676- 2769 Feb, [facility] [address] [place] [address] [id number] Feb, [facility] [id number] [place] [address] [id number] Feb, Dental caries extending into dentin K02.62 [facility] [id number] [place] [address] 84842- 5208 January, [facility] [id number] [place] [address] 13933- 6644 January, [facility] [id number] [place] [address] 28271- 2322 January, Onychomycosis B35.1 [facility] [address] [place] [address] [id number] January, Dental caries extending into dentin K02.62 [facility] [address] [place] [address] 39536- 1439 Dec, [facility] [address] [address]- 8384 Dec, [facility] [id number] [place] [address] 279439- 8392 Dec, [facility] [address] [place] [address] 562834- 7040 Dec, Mild intellectual disability F70 ; Depression, unspecified depression type F32.9 ; Anxiety F41.9 and BMI 45.0-49.9, adult Z68.42 [facility] [address] 57605- 2736 Dec, Folliculitis L73.9 [facility] [address] [id number]- 4541 Dec, Mild intellectual disability F70 ; Unsteady gait R26.81 and Generalized weakness R53.1 [facility] [address] [id number] 15 Nov, 2017 [facility] [address] 46299- 4554 14 Nov, 2017 [facility] [address] 76422- 7371 Nov, Folliculitis L73.9 ; Tinea corporis B35.[address] [facility] [address] [id number] Oct, [facility] [address] 17781- 9345 Oct, Mood disorder F39 [facility] [address] 04770- 6200 Oct, [facility] [address] 59247 -1791 Oct, Left hip pain M25.552 and Muscle spasm M62.838 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 ; Anxiety F41.9 ; Onychomycosis B35.1 ; BMI 40.0-44.9, adult Z68.41 and Alkaline phosphatase elevation R74.8 [facility] [address] [place] [address]- 7898 Sep, Mild intellectual disability F70 [facility] [id number] [place] [address] 90532- 2385 Sep, [facility] [id number] [place] [address] 70934- 6070 Sep, Alkaline phosphatase elevation R74.8 [facility] [address] 63453- 7809 Sep, Alkaline phosphatase elevation R74.8 [facility] [id number] [place] [address] 69523- 2917 Sep, Mood disorder F39 ; Attention deficit hyperactivity disorder (ADHD), predominantly inattentive type F90.0 ; Irritable bowel syndrome with both constipation and diarrhea K58.2 and Seizures R56.9 [place] [id number] [place] [address] 16148- 8433 Sep, Mild intellectual disability F70 ; Depression, unspecified depression type F32.9 ; Anxiety F41.9 and BMI 40.0-44.9, adult Z68.41 [facility] [id number] [place] [address] 97484- 9867 Sep, [facility] [id number] [place] [address] 74516- 1466 Sep, [facility] [id number] [place] [address] 83204- 3735 Sep, [facility] [id number] [place] [address] 89324- 1264 Sep, [facility] [id number] [place] [address] 18972- 1206 Sep, [facility] [id number] [place] [address] [id number] Aug, Encounter for dental examination and cleaning without abnormal findings Z01.20 [facility] [id number] [place] [address] [id number] Aug, Dental examination Z01.20 [facility] [address] [address]- 9187 Aug, [place] [id number] [place] [id number]- 8824 Aug, Depression, unspecified depression type F32.9 ; Mild intellectual disability F70 and Anxiety F41.9 [place] [id number] [place] [address]- 7537 Aug, Mood disorder F39 ; Attention deficit hyperactivity disorder (ADHD), predominantly inattentive type F90.0 ; Irritable bowel syndrome with both constipation and diarrhea K58.2 and Seizures R56.9 [place] [id number] [place] [address] 92814- 8420 Aug, Depression, unspecified depression type F32.9 ; Mild intellectual disability F70 and Anxiety F41.9 [place] [id number] [place] [address] 88952- 1599 Aug, [facility] [address] [place] [address] [id number] Jul, Dental examination Z01.20 and Dental caries K02.9 [place] [id number] [place] [address] [phone] Jun, Unspecified mood [affective] disorder F39 and 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 [facility] [address] [place] [address] [id number] May, Encounter for dental examination and cleaning without abnormal findings Z01.20 [facility] [id number] [place] [address] [id number] Mar, Dental examination Z01.20 [facility] [id number] [place] [address] [id number] Sep, Dental examination Z01.20 [facility] [id number] [place] [address] [id number] January, Dental examination Z01.20 [facility] [id number] [id number] Dec, Encounter for dental examination Z01.20 [facility] [address] [id number] Dec, Dental examination Z01.20 [facility] [address] [place] [address] [id number] Nov, Dental examination Z01.20 [facility] [id number] [place] [address] [phone] Jul, Encounter for dental examination Z01.20 and Dental examination Z01.20 [facility] [id number] [place] [address] [id number] Apr, Dental examination V72.2 [facility] [id number] [place] [address] [phone] Mar, Dental examination V72.2 [facility] [id number] [place] [address] [phone] January, [facility] [id number] [place] [address] [phone] January, [facility] [id number] [place] [address] [phone] January, [facility] [id number] [place] [address] [id number] [phone] January, [facility] [id number] [place] [address] [id number] [phone] Jul, IMMUNIZATIONS No Known Immunizations SOCIAL HISTORY Never Assessed REASON FOR VISIT PLAN OF CARE VITAL SIGNS MEDICATIONS Unknown [...]
--- OUTSIDE RECORDS SUMMARY | 2018-06-16 09:26 | XMS REPORT ---
Author Author YU SAMUEL Organization [facility] Address [address] [place] [address] Care Team Providers Care Personal Property Assessor Name Role Phone YU SAMUEL Unavailable PROBLEMS Type Condition ICD9-CM Code RTT05-MG Code Onset Dates Condition Status SNOMED Code Problem Unspecified mood [affective] disorder F39 Active 22276666 Problem Anxiety F41.9 Active 66065435 Problem 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 Active 280153854 Problem Irritable bowel syndrome with both constipation and diarrhea K58.2 Active 47728169 Problem Attention deficit hyperactivity disorder (ADHD), predominantly inattentive type F90.0 Active 41070836 Problem Mood disorder F39 Active 75265516 Problem Environmental allergies Z91.09 Active 431113912 Problem Postconcussion syndrome F07.81 Active 87166408 Problem Mild intellectual disability F70 Active 73353863 Problem Depression, unspecified depression type F32.9 Active 99309110 Problem Unsteady gait R26.81 Active 54255296 Problem 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 Active 55448381 ALLERGIES No Information ENCOUNTERS Encounter Location Date Diagnosis [facility] [id number] [address] Jun, [facility] [id number] [address] May, [facility] [id number] [address] Apr, [facility] [id number] [place] [address] 47998- 9521 Apr, [facility] [id number] [address] Apr, [facility] [id number] [place] [address] 86508- 4792 Apr, [facility] [id number] [place] [address] 87866- 7824 Apr, Environmental allergies Z91.09 [facility] [id number] [place] [address] 39395- 4565 Apr, [place] [address] [address] Apr, Anxiety F41.9 [place] [address] [address]- [address] Mar, Nail hypertrophy L60.2 and Self-care deficit for hygiene R46.0 [place] [address] [address]- [address]68 Mar, [place] [address] [address]- [address]80 Mar, [place] [address] [address] Mar, Anxiety F41.9 ; Mood disorder F39 and Dysfunction of both eustachian tubes H69.83 [place] [id number] [place] [address] 61921- 4021 Mar, Seizures R56.9 [place] [id number] [place] [address] 15820- 0029 Mar, Folliculitis L73.9 [place] [id number] [place] [address] 42387- 9160 Mar, Mild intellectual disability F70 ; Depression, unspecified depression type F32.9 and Anxiety F41.9 [place] [id number] [place] [address] 49790- 9130 Mar, Seizures R56.9 and Folliculitis L73.9 [place] [id number] [place] [address] 55342- 6121 Feb, [place] [id number] [address] Feb, Postconcussion syndrome F07.81 and Folliculitis L73.9 [facility] [id number] [place] [address] 95156- 9462 Feb, Postconcussion syndrome F07.81 [facility] [id number] [place] [address] 39473- 7193 Feb, [facility] [id number] [place] [address] [id number] Feb, [facility] [address] [id number] Feb, Dental caries extending into dentin K02.62 [facility] [id number] [place] [address] 33991- 6995 January, [facility] [id number] [place] [address] 66862- 9897 January, [facility] [id number] [place] [address] 00099- 7388 January, Onychomycosis B35.1 [facility] [id number] [place] [address] [id number] January, Dental caries extending into dentin K02.62 [facility] [id number] [place] [address] 72972- 4636 Dec, [facility] [id number] [place] [address] 19222- 5030 Dec, [facility] [id number] [place] [address] 94870- 9363 Dec, [facility] [id number] [place] [address] 33633- 3443 Dec, Mild intellectual disability F70 ; Depression, unspecified depression type F32.9 ; Anxiety F41.9 and BMI 45.0-49.9, adult Z68.42 [facility] [id number] [place] [address] 81825- 3456 Dec, Folliculitis L73.9 [facility] [address] [id number] [id number] Dec, Mild intellectual disability F70 ; Unsteady gait R26.81 and Generalized weakness R53.1 [facility] [address] [id number] Nov, 2017 [facility] [address] [address]- [address] 14 Nov, 2017 [facility] [address] 701047- 6559 Nov, Folliculitis L73.9 ; Tinea corporis B35.4 and Onychomycosis B35.1 [facility] [id number] [place] [address] [id number] Oct, [facility] [id number] [place] [address] 35916- 5411 Oct, Mood disorder F39 [facility] [address] [address]- [address]83 Oct, 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 ; Anxiety F41.9 ; Onychomycosis B35.1 ; BMI 40.0-44.9, adult Z68.41 and Alkaline phosphatase elevation R74.8 [facility] [address] [address]- [address] Sep, Mild intellectual disability F70 [facility] [id number] [place] [address] 52858- 8093 Sep, [facility] [id number] [place] [address] Sep, Alkaline phosphatase elevation R74.8 [facility] [id number] [place] [address] 88431- 7488 Sep, Alkaline phosphatase elevation R74.8 [facility] [id number] [place] [address] 79397- 0596 Sep, Mood disorder F39 ; Attention deficit hyperactivity disorder (ADHD), predominantly inattentive type F90.0 ; Irritable bowel syndrome with both constipation and diarrhea K58.2 and Seizures R56.9 [place] [id number] [place] [address] 92689- 1468 Sep, Mild intellectual disability F70 ; Depression, unspecified depression type F32.9 ; Anxiety F41.9 and BMI 40.0-44.9, adult Z68.41 [facility] [id number] [place] [address] 55965- 5087 Sep, [facility] [id number] [place] [address] 24068- 7272 Sep, [facility] [id number] [place] [address] 77285- 5241 Sep, [facility] [id number] [place] [address] 22827- 6832 Sep, [facility] [id number] [place] [address] 08158- 0620 Sep, [facility] [id number] [place] [address] [id number] Aug, Encounter for dental examination and cleaning without abnormal findings Z01.20 [facility] [id number] [place] [address] [phone] Aug, Dental examination Z01.20 [facility] [id number] [place] [address] 93339- 8409 Aug, [facility] [id number] [place] [address] 71005- 6851 Aug, Depression, unspecified depression type F32.9 ; Mild intellectual disability F70 and Anxiety F41.9 [place] [id number] [place] [address] 19781- 0703 Aug, Mood disorder F39 ; Attention deficit hyperactivity disorder (ADHD), predominantly inattentive type F90.0 ; Irritable bowel syndrome with both constipation and diarrhea K58.2 and Seizures R56.9 [place] [id number] [place] [address] 80886- 9540 05 Aug, 2017 Depression, unspecified depression type F32.9 ; Mild intellectual disability F70 and Anxiety F41.9 [place] [id number] [place] [address] 40248- 7954 Aug, [facility] [address] [place] [address] [id number] Jul, Dental examination Z01.20 and Dental caries K02.9 [place] [id number] [place] [address] 21533- 6941 Jun, Unspecified mood [affective] disorder F39 and 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 [facility] [id number] [place] [address] [id number] May, Encounter for dental examination and cleaning without abnormal findings Z01.20 [facility] [id number] [place] [address] [id number] Mar, Dental examination Z01.20 [facility] [id number] [place] [address] [id number] Sep, Dental examination Z01.20 [facility] [id number] [place] [address] [id number] January, Dental examination Z01.20 [facility] [address] [id number] [id number] Dec, Encounter for dental examination Z01.20 [facility] [id number] [place] [address] [id number] Dec, Dental examination Z01.20 [facility] [address] [place] [address] [id number] Nov, Dental examination Z01.20 [facility] [id number] [place] [address] [id number] Jul, Encounter for dental examination Z01.20 and Dental examination Z01.20 [facility] [id number] [place] [address] [id number] Apr, Dental examination V72.2 [facility] [id number] [place] [address] [id number] Mar, Dental examination V72.2 [facility] [id number] [place] [address] 10817- 2546 January, [facility] [id number] [place] [address] 14915- 2546 January, [facility] [id number] [place] [address] 54037- 2546 January, [facility] [id number] [place] [address] 76102- 2546 January, [facility] [id number] [place] [address] 82382- 2546 Jul, IMMUNIZATIONS No Known Immunizations SOCIAL [...]
--- OUTSIDE RECORDS SUMMARY | 2018-06-16 09:27 | XMS REPORT ---
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 Active 756610152 Problem Irritable bowel syndrome with both constipation and diarrhea K58.2 Active 19314948 Problem Attention deficit hyperactivity disorder (ADHD), predominantly inattentive type F90.0 Active 47449349 Problem Mood disorder F39 Active 22386994 Problem Environmental allergies Z91.09 Active 911123538 Problem Postconcussion syndrome F07.81 Active 26731833 Problem Mild intellectual disability F70 Active 40577201 Problem Depression, unspecified depression type F32.9 Active 08553166 Problem Unsteady gait R26.81 Active 22250778 Problem 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 Active 63319438 ALLERGIES Substance Reaction Event Type Date Status Zithromax Unknown Drug Allergy January, Active Promethazine HCl n/v Drug Allergy January, Active Macrobid n/v Drug Allergy January, Active Tetracycline HCl Unknown Drug Allergy January, Active Sulfamethoxazole dizziness Drug Allergy January, Active [place] Carbonate Unknown Drug Allergy January, Active Levaquin n/v Drug Allergy January, Active Keflex n/v Drug Allergy January, Active Estradiol Unknown Drug Allergy January, Active Depakote n/v Drug Allergy January, Active Codeine Sulfate Unknown Drug Allergy January, Active Codeine Phosphate n/v Drug Allergy January, Active Clindamycin HCl Unknown Drug Allergy January, Active Amoxicillin anaphylaxis and n/v Drug Allergy January, Active latex Unknown Non Drug Allergy January, Active ENCOUNTERS Encounter Location Date Diagnosis [facility], [place] [id number] [place] [address] [phone] Jun, [facility], [place] [address] [address]89[address] May, [facility], [place] [address] 92547- 0372 Apr, [facility], [place] [address] 87570- 3835 Apr, [facility], [place] [address] 90101- 5843 Apr, Environmental allergies Z91.09 [facility], [place] [address] 39649- 7912 Apr, [facility], [place] [address] 25720- 3351 Apr, Anxiety F41.9 [facility], [place] [address] 99050- 2066 Mar, Nail hypertrophy L60.2 and Self-care deficit for hygiene R46.0 [facility], [place] [id number] [place] [address] 31347- 7647 Mar, [facility], [place] [id number] [place] [address] 27433- 9545 Mar, [facility], [place] [address] 31617- 7306 Mar, Anxiety F41.9 ; Mood disorder F39 and Dysfunction of both eustachian tubes H69.83 [facility], [place] [address] 24224- 0481 Mar, Seizures R56.9 [facility], [place] [id number] [place] [address] 29994- 1231 Mar, Folliculitis L73.9 [facility], [place] [id number] [place] [address] 14281- 3270 Mar, Mild intellectual disability F70 ; Depression, unspecified depression type F32.9 and Anxiety F41.9 [facility], [place] [id number] [place] [address] 91692- 9152 Mar, Seizures R56.9 and Folliculitis L73.9 [facility], [place] [id number] [place] [address] 23030- 9592 Feb, [facility], [place] [id number] [place] [address] 33639- 0308 Feb, Postconcussion syndrome F07.81 and Folliculitis L73.9 [facility], [place] [id number] [place] [address] 38834- 6714 Feb, Postconcussion syndrome F07.81 [facility], [place] [id number] [place] [address] 40335- 8908 Feb, [facility] [id number] [place] [address] [id number] Feb, [facility] [address] [id number] Feb, Dental caries extending into dentin K02.62 [facility], [place] [id number] [place] [address] 73201- 4125 January, [facility], [place] [id number] [place] [address] 03958- 2783 January, [facility], [place] [id number] [place] [address] 12424- 4025 January, Onychomycosis B35.1 [facility] [id number] [place] [address] [id number] January, Dental caries extending into dentin K02.62 [facility], [place] [id number] [place] [address] 20344- 3341 Dec, [facility], [place] [id number] [place] [address] 41553- 1173 Dec, [facility], [place] [id number] [place] [address] 62757- 7859 Dec, [facility], [place] [id number] [place] [address] 73046- 5080 Dec, Mild intellectual disability F70 ; Depression, unspecified depression type F32.9 ; Anxiety F41.9 and BMI 45.0-49.9, adult Z68.42 [facility], [place] [id number] [place] [address] 15877- 5086 Dec, Folliculitis L73.9 [facility], [place] [id number] [place] [address] 76120- 5103 Dec, Mild intellectual disability F70 ; Unsteady gait R26.81 and Generalized weakness R53.1 [facility] [id number] [place] [address] [id number] Nov, [facility], [place] [id number] [place] [address] 64403- 1264 Nov, [facility], [place] [address] 87271- 6027 Nov, Folliculitis L73.9 ; Tinea corporis B35.4 and Onychomycosis B35.1 [facility] [id number] [place] [address] [id number] Oct, [facility], [place] [id number] [place] [address] 48817- 7057 Oct, Mood disorder F39 [facility], [place] [id number] [place] [address] 03580- 6983 Oct, [facility] [id number] [place] [address] 34360 -1464 Oct, Left hip pain M25.552 and Muscle spasm M62.838 [facility] [address] [place] [address] [id number] Oct, [facility] [id number] [place] [address] 76468- 3489 Oct, 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 ; Anxiety F41.9 ; Onychomycosis B35.1 ; BMI 40.0-44.9, adult Z68.41 and Alkaline phosphatase elevation R74.8 [facility] [id number] [place] [address] 40652- 0281 Sep, Mild intellectual disability F70 [facility] [id number] [place] [address] 26012- 7835 Sep, [facility] [id number] [place] [address] 22344- 1606 Sep, Alkaline phosphatase elevation R74.8 [facility] [id number] [place] [address] 00299- 2820 Sep, Alkaline phosphatase elevation R74.8 [facility] [id number] [place] [address] 94285- 6302 Sep, Mood disorder F39 ; Attention deficit hyperactivity disorder (ADHD), predominantly inattentive type F90.0 ; Irritable bowel syndrome with both constipation and diarrhea K58.2 and Seizures R56.9 [facility] [id number] [place] [address] 84195- 2339 Sep, Mild intellectual disability F70 ; Depression, unspecified depression type F32.9 ; Anxiety F41.9 and BMI 40.0-44.9, adult Z68.41 [facility] [id number] [place] [address] 00604- 6466 Sep, [facility] [id number] [place] [address] 19820- 0564 Sep, [facility] [id number] [place] [address] 49499- 8715 Sep, [facility] [address] [place] [address] 08 Sep, 2017 [facility], [place] [id number] [place] [address] 75427- 9354 Sep, [facility] [id number] [place] [address] [id number] Aug, Encounter for dental examination and cleaning without abnormal findings Z01.20 [facility] [address] [id number] Aug, Dental examination Z01.20 [facility], [place] [address] 53180- 2523 Aug, [facility], [place] [address] 88807- 5023 Aug, Depression, unspecified depression type F32.9 ; Mild intellectual disability F70 and Anxiety F41.9 [place] [address] 99676- 1858 Aug, Mood disorder F39 ; Attention deficit hyperactivity disorder (ADHD), predominantly inattentive type F90.0 ; Irritable bowel syndrome with both constipation and diarrhea K58.2 and Seizures R56.9 [facility], [place] [id number] [place] [address] 55833- 7405 Aug, Depression, unspecified depression type F32.9 ; Mild intellectual disability F70 and Anxiety F41.9 [facility], [place] [id number] [place] [address] 37267- 7941 Aug, [facility] [id number] [place] [address] [id number] Jul, Dental examination Z01.20 and Dental caries K02.9 [facility], [place] [id number] [place] [address] [id number]- 1356 Jun, Unspecified mood [affective] disorder F39 and 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 [facility] [id number] [place] [address] [id number] May, Encounter for dental examination and cleaning without abnormal findings Z01.20 [facility] [address] [id number] [id number] Mar, Dental examination Z01.20 [facility] [address] [id number] [id number] Sep, Dental examination Z01.20 [facility] [address] [id number][place] [id number] January, Dental examination Z01.20 [facility] [id number] [place] [address] [id number] Dec, Encounter for dental examination Z01.20 [facility] [id number] [place] [address] [id number] Dec, Dental examination Z01.20 [facility] [address] [id number][place] [id number] Nov, Dental examination Z01.20 [facility] [id number] [place] [address] [id number] Jul, Encounter for dental examination Z01.20 and Dental examination Z01.20 [facility] [address] [id number][place] [id number] Apr, Dental examination V72.2 [facility] [address] [id number] [id number] Mar, Dental examination V72.2 [facility], [place] [address] [id number][place] [address] 49[address] January, [facility], [place] [address] [id number], [place] [address]856 January, [facility], [place] [id number] [place] [address] [id number] 8987 January, [facility], [place] [address] [id number], [place] [address] 3719 January, [facility], [place] [id number] [place] [address] 29998- 2092 Jul, IMMUNIZATIONS No Known Immunizations SOCIAL HISTORY Never Assessed REASON FOR VISIT FILLING PLAN OF CARE Activity Details Follow Up prn Reason:Restorative VITAL SIGNS MEDICATIONS Medication Instructions Dosage Frequency Start Date End Date Duration Status Protonix 40 mg Orally Once a day 1 tablet 24h Active Amitriptyline HCl 50 mg Orally at night 1 tablet Active Simvastatin 20 mg Orally Once a day 1 tablet 24h Active Verapamil HCl ER 120 MG Orally Once a day 1 tablet 24h Active Topiramate 100 mg Orally Twice a day 1 tablet 12h Active Calcium 600-400 MG-UNIT Orally Once a day 24h Active Aspirin 81 MG 1 tablet Active Ketoconazole 2 % Externally Once a day 1 application to affected area 24h Nov, Not-Taking One-A-Day Bone Strength Active Lamotrigine 100 mg Orally Twice a day 1 tablet 12h Active Elmiron 100 mg Orally Three times a day 1 capsule on an empty stomach 8h Active Loratadine 10 mg Orally Once a day 1 tablet 24h Active Phenytoin 100 mg 3 tablets 12h Active Strattera 100 mg Orally Once a day 1 capsule 24h Active VESIcare 5 mg Orally Once a day 1 tablet 24h Active Meclizine HCl 25 MG Orally TID 1 tablet 8h Active Diflucan 100 MG Orally Once a day 1 tablet 24h Active RESULTS No Results PROCEDURES Procedure Date Ordered Result Body Site RESIN COMPOS - 2 SURFACES ANTERIOR January 24, 2018 RESIN COMPOS - 3 SURFACES ANTERIOR January 24, 2018 Billing Notes on claim January 24, 2018 RESIN COMPOS - 3 SURFACES ANTERIOR January 24, 2018 INSTRUCTIONS MEDICATIONS ADMINISTERED No Known Medications [...]
--- OUTSIDE RECORDS SUMMARY | 2018-06-16 09:27 | XMS REPORT ---
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 Active 004021596 Problem Irritable bowel syndrome with both constipation and diarrhea K58.2 Active 95776203 Problem Attention deficit hyperactivity disorder (ADHD), predominantly inattentive type F90.0 Active 21697937 Problem Mood disorder F39 Active 47721345 Problem Environmental allergies Z91.09 Active 459502824 Problem Postconcussion syndrome F07.81 Active 64896003 Problem Mild intellectual disability F70 Active 60195230 Problem Depression, unspecified depression type F32.9 Active 08888476 Problem Unsteady gait R26.81 Active 01982232 Problem 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 Active 32298081 ALLERGIES Substance Reaction Event Type Date Status Zithromax Unknown Drug Allergy January, Active Promethazine HCl n/v Drug Allergy January, Active Macrobid n/v Drug Allergy January, Active Tetracycline HCl Unknown Drug Allergy January, Active Sulfamethoxazole dizziness Drug Allergy January, Active [place] Carbonate Unknown Drug Allergy January, Active Levaquin [...] January, Active ENCOUNTERS Encounter Location Date Diagnosis [facility] [id number] [place] [address]24- [address]494 Jun, [facility] [address] [address] May, [facility] [id number] [place] [address] 28123- 4502 Apr, [facility] [address] [address] Apr, [facility] [address] [address]- [address]65 Apr, Environmental allergies Z91.09 [facility] [address] 0[address]- [address]753 Apr, [facility] [address] [address]- [address] Apr, Anxiety F41.9 [facility] [address] 34431- 8162 Mar, Nail hypertrophy L60.2 and Self-care deficit for hygiene R46.0 [facility] [address] 45896- 3475 Mar, [facility] [address] 70727- 7660 Mar, [facility] [id number] [place] [address] 49669- 8140 Mar, Anxiety F41.9 ; Mood disorder F39 and Dysfunction of both eustachian tubes H69.83 [facility] [address] 91259- 2509 Mar, Seizures R56.9 [facility] [id number] [place] [address] 55362- 7808 Mar, Folliculitis L73.9 [facility] [address] 18462- 8036 Mar, Mild intellectual disability F70 ; Depression, unspecified depression type F32.9 and Anxiety F41.9 [facility] [id number] [place] [address] 02726- 7002 Mar, Seizures R56.9 and Folliculitis L73.9 [facility] [id number] [place] [address] 56068- 2841 Feb, [facility] [id number] [place] [address] 23261- 5747 Feb, Postconcussion syndrome F07.81 and Folliculitis L73.9 [facility] [id number] [place] [address] 34074- 7277 Feb, Postconcussion syndrome F07.81 [facility] [id number] [place] [address] 80478- 9225 Feb, [facility] [address] [id number] Feb, [facility] [address] [id number] Feb, Dental caries extending into dentin K02.62 [facility] [id number] [place] [address] 74323- 1235 January, [facility] [id number] [place] [address] 39094- 7897 January, [facility] [id number] [place] [address] 49700- 3047 January, Onychomycosis B35.1 [facility] [id number] [place] [address] [id number] January, Dental caries extending into dentin K02.62 [facility] [id number] [place] [address] 44492- 5961 Dec, [facility] [id number] [place] [address] 92711- 7806 Dec, [facility] [id number] [place] [address] 58894- 9604 Dec, [facility] [address] [id number] Dec, Mild intellectual disability F70 ; Depression, unspecified depression type F32.9 ; Anxiety F41.9 and BMI 45.0-49.9, adult Z68.42 [facility] [address] 61607- 9605 Dec, Folliculitis L73.9 [facility] [address] 17556- 2206 Dec, Mild intellectual disability F70 ; Unsteady gait R26.81 and Generalized weakness R53.1 [facility] [id number] [place] [address] [id number] Nov, [facility] [address] 63283- 9637 Nov, [facility] [address] 55524- 0710 Nov, Folliculitis L73.9 ; Tinea corporis B35.4 and Onychomycosis B35.1 [facility] [id number] [place] [address] [id number] Oct, [facility] [id number] [place] [address] 37827- 9644 Oct, Mood disorder F39 [facility] [id number] [place] [address] 37572- 1404 Oct, [facility] [address] 93091 -6071 Oct, Left hip pain M25.552 and Muscle spasm M62.838 [facility] [address] [id number] Oct, [place] [id number] [place] [address] 18351- 4980 Oct, 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 ; Anxiety F41.9 ; Onychomycosis B35.1 ; BMI 40.0-44.9, adult Z68.41 and Alkaline phosphatase elevation R74.8 [place] [id number] [place] [address] 50871- 1414 Sep, Mild intellectual disability F70 [place] [id number] [place] [address] 55662- 5750 Sep, [place] [facility] [id number] [place] [address] 07310- 9974 Sep, Alkaline phosphatase elevation R74.8 [place] [facility] [id number] [place] [address] 15312- 6232 Sep, Alkaline phosphatase elevation R74.8 [place] [id number] [place] [address] 67921- 7233 Sep, Mood disorder F39 ; Attention deficit hyperactivity disorder (ADHD), predominantly inattentive type F90.0 ; Irritable bowel syndrome with both constipation and diarrhea K58.2 and Seizures R56.9 [place] [id number] [place] [address] 07524- 0412 Sep, Mild intellectual disability F70 ; Depression, unspecified depression type F32.9 ; Anxiety F41.9 and BMI 40.0-44.9, adult Z68.41 [place] [id number] [place] [address] 47749- 2772 Sep, [place] [id number] [place] [address] 12554- 1541 Sep, [place] [id number] [place] [address] 43941- 7779 Sep, [place] [id number] [place] [address] 13360- 2091 Sep, [facility] [id number] [place] [address] 51847- 0375 Sep, [facility] [id number] [place] [address] [id number] Aug, Encounter for dental examination and cleaning without abnormal findings Z01.20 [facility] [id number] [place] [address] [id number] Aug, Dental examination Z01.20 [facility] [address] 51911- 2664 Aug, [facility] [address] [id number]- 1981 Aug, Depression, unspecified depression type F32.9 ; Mild intellectual disability F70 and Anxiety F41.9 [place] [address] 04853- 5130 Aug, Mood disorder F39 ; Attention deficit hyperactivity disorder (ADHD), predominantly inattentive type F90.0 ; Irritable bowel syndrome with both constipation and diarrhea K58.2 and Seizures R56.9 [facility] [id number] [place] [address] 83120- 8414 Aug, Depression, unspecified depression type F32.9 ; Mild intellectual disability F70 and Anxiety F41.9 [place] [id number] [place] [address] 17955- 3836 Aug, [facility] [id number] [place] [address] [id number] Jul, Dental examination Z01.20 and Dental caries K02.9 [place] [address] [id number] [phone] Jun, Unspecified mood [affective] disorder F39 and 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 [facility] [id number] [place] [address] [phone] May, Encounter for dental examination and cleaning without abnormal findings Z01.20 [facility] [address] [id number] [id number] Mar, Dental examination Z01.20 [facility] [address] [id number] [id number] Sep, Dental examination Z01.20 [facility] [address] [id number][place] [id number] January, Dental examination Z01.20 [facility] [address] [id number][place] [phone] Dec, Encounter for dental examination Z01.20 [facility] [id number] [place] [address] [id number] Dec, Dental examination Z01.20 [facility] [id number] [place] [address] [id number] Nov, Dental examination Z01.20 [facility] [id number] [place] [address] [id number] Jul, Encounter for dental examination Z01.20 and Dental examination Z01.20 [facility] [address] [id number][place] [id number] Apr, Dental examination V72.2 [facility] [address] [id number][place] [id number] Mar, Dental examination V72.2 [facility] [address] [id number], [place] [address] January, [facility] [address] [id number], [place] [address]- 2546 January, [facility] [address] [id number], [place] [address]- 4946 January, [facility] [address] [id number], [place] [address]- 2546 January, [facility] [address] [id number], [place] [address]- [address]446 Jul, IMMUNIZATIONS No Known Immunizations SOCIAL HISTORY Never Assessed REASON FOR VISIT Toenail Removal WB-MA, Bump on forehead, Needs blood sugar machine calibrated PLAN OF CARE Activity Details Future/Pending Procedure NAIL REMOVAL PERMANENT (PARTIAL OR COMPLETE) VITAL SIGNS Height 59 in 2018-01-31 Weight 230 lbs 2018-01-31 Temperature 98 degrees Fahrenheit 2018-01-31 Heart Rate 115 bpm 2018-01-31 Respiratory Rate 20 2018-01-31 BMI 46.45 kg/m2 2018-01-31 Blood pressure systolic 122 mmHg 2018-01-31 Blood pressure diastolic 74 mmHg 2018-01-31 MEDICATIONS Medication Instructions Dosage Frequency Start Date End Date Duration Status Strattera 100 mg Orally Once a day 1 capsule 24h Active Verapamil HCl ER 120 MG Orally Once a day 1 tablet 24h Active One-A-Day Bone Strength Active Topiramate 100 mg Orally Twice a day 1 tablet 12h Active Amitriptyline HCl 50 mg Orally at night 1 tablet Active Ketoconazole 2 % Externally Once a day 1 application to affected area 24h Nov, Not-Taking Meclizine HCl 25 MG Orally TID 1 tablet 8h Active Calcium 600-400 MG-UNIT Orally Once a day 24h Active Diflucan 100 MG Orally Once a day 1 tablet 24h Active Dicyclomine HCl 20MG TAKE TWO TABLETS BY MOUTH 4 TIMES DAILY Active Blood Glucose Monitor System w/Device test blood sugar 8h Active Blood Glucose Test Strip - test blood sugar 8h Active Phenytoin 100 mg 3 tablets 12h Active VESIcare 5 mg Orally Once a day 1 tablet 24h Active Lamotrigine 100 mg Orally Twice a day 1 tablet 12h Active Protonix 40 mg Orally Once a day 1 tablet 24h Active Aspirin 81 MG 1 tablet Active Simvastatin 20 mg Orally Once a day 1 tablet 24h Active Elmiron 100 mg Orally Three times a day 1 capsule on an empty stomach 8h Active Loratadine 10 mg Orally Once a day 1 tablet 24h Active RESULTS No Results PROCEDURES Procedure Date Ordered Result Body Site REMOVAL OF NAIL BED January 31, 2018 [facility] VISIT ESTABLISHED PATIENT January 31, 2018 INSTRUCTIONS MEDICATIONS ADMINISTERED No Known Medications [...]
--- OUTSIDE RECORDS SUMMARY | 2018-06-16 09:27 | XMS REPORT ---
Author Author YU SAMUEL Organization [facility] Address [address] [place] [address] Care Team Providers Care Angio Technologist Name Role Phone YU SAMUEL Unavailable PROBLEMS Type Condition ICD9-CM Code BYK88-YO Code Onset Dates Condition Status SNOMED Code Problem Unspecified mood [affective] disorder F39 Active 31047846 Problem Anxiety F41.9 Active 38123637 Problem 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 Active 876048460 Problem Irritable bowel syndrome with both constipation and diarrhea K58.2 Active 87969410 Problem Attention deficit hyperactivity disorder (ADHD), predominantly inattentive type F90.0 Active 10179572 Problem Mood disorder F39 Active 52213913 Problem Environmental allergies Z91.09 Active 109829149 Problem Postconcussion syndrome F07.81 Active 58244433 Problem Mild intellectual disability F70 Active 14410744 Problem Depression, unspecified depression type F32.9 Active 74747203 Problem Unsteady gait R26.81 Active 46938075 Problem 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 Active 07315271 ALLERGIES No Information ENCOUNTERS Encounter Location Date Diagnosis [facility] [address], [place] [address] Jun, [facility] [address], [place] [address] May, [facility] [address] [address] 6615 Apr, [facility] [id number] [place] [address] 77621- 9814 Apr, [facility] [address], [place] [address] 7596 Apr, [facility] [id number] [place] [address] 71419- 0124 Apr, [facility] [id number] [place] [address] 87597- 3107 Apr, Environmental allergies Z91.09 [facility] [id number] [place] [address] 73665- 7418 Apr, [place] [address] [address]- 7347 Apr, Anxiety F41.9 [place] [address] 25854- 5051 Mar, Nail hypertrophy L60.2 and Self-care deficit for hygiene R46.0 [place] [address] 87285- 4808 Mar, [place] [address] 28050- 6357 Mar, [place] [address] 87370- 3358 Mar, Anxiety F41.9 ; Mood disorder F39 and Dysfunction of both eustachian tubes H69.83 [place] [id number] [place] [address] 40153- 6196 Mar, Seizures R56.9 [place] [id number] [place] [address] 55930- 9023 Mar, Folliculitis L73.9 [place] [id number] [place] [address] 58592- 5967 Mar, Mild intellectual disability F70 ; Depression, unspecified depression type F32.9 and Anxiety F41.9 [place] [id number] [place] [address] 29697- 9323 Mar, Seizures R56.9 and Folliculitis L73.9 [place] [id number] [place] [address] 74206- 4540 Feb, [place] [address], [place] [address] 8775 Feb, Postconcussion syndrome F07.81 and Folliculitis L73.9 [facility] [id number] [place] [address] 07061- 8407 Feb, Postconcussion syndrome F07.81 [facility] [id number] [place] [address] 44594- 2639 Feb, [facility] [id number] [place] [address] [id number] Feb, [facility] [address] [id number] Feb, Dental caries extending into dentin K02.62 [facility] [id number] [place] [address] 65590- 9540 January, [facility] [id number] [place] [address] 31052- 3862 January, [facility] [id number] [place] [address] 84638- 2717 January, Onychomycosis B35.1 [facility] [id number] [place] [address] [id number] January, Dental caries extending into dentin K02.62 [facility] [id number] [place] [address] 85748- 6112 Dec, [facility] [id number] [place] [address] 61819- 6299 Dec, [facility] [id number] [place] [address] 71298- 5359 Dec, [facility] [id number] [place] [address] 70116- 1486 Dec, Mild intellectual disability F70 ; Depression, unspecified depression type F32.9 ; Anxiety F41.9 and BMI 45.0-49.9, adult Z68.42 [facility] [id number] [place] [address] 54872- 4280 Dec, Folliculitis L73.9 [facility] [address] [id number]- 5567 Dec, Mild intellectual disability F70 ; Unsteady gait R26.81 and Generalized weakness R53.1 [facility] [address] [id number] Nov, 2017 [facility] [address] 09113- 5871 14 Nov, 2017 [facility] [address] 677777- 7181 Nov, Folliculitis L73.9 ; Tinea corporis B35.4 and Onychomycosis B35.1 [facility] [id number] [place] [address] [phone] Oct, [facility] [id number] [place] [address] 53447- 3276 Oct, Mood disorder F39 [facility] [address] 95780- 3829 Oct, [facility] [address] 25313 -1247 Oct, Left hip pain M25.552 and Muscle spasm M62.838 [facility] [id number] [place] [address] [id number] Oct, [facility] [address] 54787- 7214 Oct, 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 ; Anxiety F41.9 ; Onychomycosis B35.1 ; BMI 40.0-44.9, adult Z68.41 and Alkaline phosphatase elevation R74.8 [facility] [address] 21460- 3906 Sep, Mild intellectual disability F70 [facility] [id number] [place] [address] 63018- 9251 Sep, [facility] [id number] [place] [address] 6887 Sep, Alkaline phosphatase elevation R74.8 [facility] [id number] [place] [address] 45515- 2714 Sep, Alkaline phosphatase elevation R74.8 [facility] [id number] [place] [address] 96159- 2165 Sep, Mood disorder F39 ; Attention deficit hyperactivity disorder (ADHD), predominantly inattentive type F90.0 ; Irritable bowel syndrome with both constipation and diarrhea K58.2 and Seizures R56.9 [place] [id number] [place] [address] 49044- 8465 Sep, Mild intellectual disability F70 ; Depression, unspecified depression type F32.9 ; Anxiety F41.9 and BMI 40.0-44.9, adult Z68.41 [facility] [id number] [place] [address] 19808- 7957 Sep, [facility] [id number] [place] [address] 05725- 7941 Sep, [facility] [id number] [place] [address] 77179- 9483 Sep, [facility] [id number] [place] [address] 05315- 6697 Sep, [facility] [id number] [place] [address] 71242- 6746 Sep, [facility] [id number] [place] [address] [id number] Aug, Encounter for dental examination and cleaning without abnormal findings Z01.20 [facility] [id number] [place] [address] [id number] Aug, Dental examination Z01.20 [facility] [id number] [place] [address] 26219- 3492 Aug, [facility] [id number] [place] [address] 60072- 8241 Aug, Depression, unspecified depression type F32.9 ; Mild intellectual disability F70 and Anxiety F41.9 [place] [id number] [place] [address] 36502- 9632 Aug, Mood disorder F39 ; Attention deficit hyperactivity disorder (ADHD), predominantly inattentive type F90.0 ; Irritable bowel syndrome with both constipation and diarrhea K58.2 and Seizures R56.9 [place] [id number] [place] [address] 07100- 4503 05 Aug, 2017 Depression, unspecified depression type F32.9 ; Mild intellectual disability F70 and Anxiety F41.9 [place] [id number] [place] [address] 62210- 8451 Aug, [facility] [address] [place] [address] [id number] Jul, Dental examination Z01.20 and Dental caries K02.9 [place] [id number] [place] [address] 67093- 0707 Jun, Unspecified mood [affective] disorder F39 and 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 [facility] [id number] [place] [address] [id number] May, Encounter for dental examination and cleaning without abnormal findings Z01.20 [facility] [id number] [place] [address] [id number] Mar, Dental examination Z01.20 [facility] [id number] [place] [address] [id number] Sep, Dental examination Z01.20 [facility] [id number] [place] [address] [phone] January, Dental examination Z01.20 [facility] [address] [id number] [id number] Dec, Encounter for dental examination Z01.20 [facility] [id number] [place] [address] [id number] Dec, Dental examination Z01.20 [facility] [id number] [place] [address] [id number] Nov, Dental examination Z01.20 [facility] [id number] [place] [address] [id number] Jul, Encounter for dental examination Z01.20 and Dental examination Z01.20 [facility] [id number] [place] [address] [id number] Apr, Dental examination V72.2 [facility] [id number] [place] [address] [id number] Mar, Dental examination V72.2 [facility] [id number] [place] [address] 33217- 2546 January, [facility] [id number] [place] [address] 80659- 2546 January, [facility] [id number] [place] [address] 80137- 2546 January, [facility] [id number] [place] [address] 38980- 2546 January, [facility] [id number] [place] [address] 42167- 2546 Jul, IMMUNIZATIONS No Known Immunizations SOCIAL HISTORY Never Assessed REASON FOR VISIT Toe c/o- CHULA Gallegos PLAN OF CARE VITAL SIGNS MEDICATIONS Unknown [...]
--- OUTSIDE RECORDS SUMMARY | 2018-06-16 09:28 | XMS REPORT ---
Author Author YU SAMUEL Organization [facility] Address [address] [place] [address] Care Team Providers Care Fence Installer Helper Name Role Phone YU SAMUEL Unavailable PROBLEMS Type Condition ICD9-CM Code IXF66-CD Code Onset Dates Condition Status SNOMED Code Problem Mood disorder F39 Active 56547147 Problem 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 Active 776948541 Problem Unspecified mood [affective] disorder F39 Active 23338537 Problem Irritable bowel syndrome with both constipation and diarrhea K58.2 Active 02390573 Problem Attention deficit hyperactivity disorder (ADHD), predominantly inattentive type F90.0 Active 83883690 Problem Postconcussion syndrome F07.81 Active 13822194 Problem Unsteady gait R26.81 Active 26886509 Problem Mild intellectual disability F70 Active 08853056 Problem Depression, unspecified depression type F32.9 Active 87070549 Problem 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 Active 79278371 Problem Anxiety F41.9 Active 89094992 ALLERGIES No Information ENCOUNTERS Encounter Location Date Diagnosis [facility] [id number] [address] 49216- 2394 Jun, [facility] [id number] [place] [address] 56791- 9382 May, [facility] [id number] [place] [address] 86839- 8490 Apr, [facility] [id number] [place] [address] 50861- 1804 Mar, Nail hypertrophy L60.2 and Self-care deficit for hygiene R46.0 [facility] [id number] [place] [address] 03052- 5492 Mar, [facility] [address] [place] [address]- 4897 Mar, [facility] [id number] [place] [address] 58806- 8552 Mar, Anxiety F41.9 ; Mood disorder F39 and Dysfunction of both eustachian tubes H69.83 [facility] [id number] [address] 37046- 6645 Mar, Seizures R56.9 [facility] [address] 00461- 4985 Mar, Folliculitis L73.9 [facility] [address] 08542- 5668 Mar, Mild intellectual disability F70 ; Depression, unspecified depression type F32.9 and Anxiety F41.9 [facility] [address] 13157- 9901 Mar, Seizures R56.9 and Folliculitis L73.9 [facility] [id number] [address] 90993- 5646 Feb, [facility] [address] 95642- 2794 Feb, Postconcussion syndrome F07.81 and Folliculitis L73.9 [facility] [id number] [address] 40548- 7011 Feb, Postconcussion syndrome F07.81 [facility] [id number] [place] [address] 21021- 5261 Feb, [facility] [id number] [place] [address] [id number] Feb, [facility] [id number] [place] [address] [id number] Feb, Dental caries extending into dentin K02.62 [facility] [id number] [place] [address] 07369- 5942 January, [facility] [id number] [address] 50058- 6731 January, [facility] [id number] [place] [address] 08541- 6560 January, Onychomycosis B35.1 [facility] [id number] [place] [address] [id number] January, Dental caries extending into dentin K02.62 [facility] [id number] [place] [address] 44428- 0785 Dec, [facility] [address] 10602- 6419 Dec, [facility] [id number] [address] 39403- 4530 Dec, [facility] [id number] [address] 36583- 4885 Dec, Mild intellectual disability F70 ; Depression, unspecified depression type F32.9 ; Anxiety F41.9 and BMI 45.0-49.9, adult Z68.42 [facility] [id number] [address] 37996- 8418 Dec, Folliculitis L73.9 [facility] [id number] [address] 37483- 7034 Dec, Mild intellectual disability F70 ; Unsteady gait R26.81 and Generalized weakness R53.1 [facility] [address] [id number] Nov, [facility] [address] 51790- 9129 Nov, [facility] [id number] [address] [id number] 4461 Nov, Folliculitis L73.9 ; Tinea corporis B35.4 and Onychomycosis B35.1 [facility] [address] [id number] Oct, [facility] [id number] [place] [address] 69445- 8447 Oct, Mood disorder F39 [facility] [id number] [place] [address] 31587- 6485 Oct, [facility] [id number] [address] 23824 -3524 Oct, Left hip pain M25.552 and Muscle spasm M62.838 [facility] [id number] [address] [id number] Oct, [facility] [id number] [address] 12809- 6197 Oct, 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 ; Anxiety F41.9 ; Onychomycosis B35.1 ; BMI 40.0-44.9, adult Z68.41 and Alkaline phosphatase elevation R74.8 [facility] [id number] [address] 74563- 0175 Sep, Mild intellectual disability F70 [facility] [id number] [place] [address] 61588- 4319 Sep, [facility] [id number] [place] [address] 91202- 9511 Sep, Alkaline phosphatase elevation R74.8 [facility] [id number] [address] 84594- 4038 Sep, Alkaline phosphatase elevation R74.8 [facility] [address] 18475- 5420 Sep, Mood disorder F39 ; Attention deficit hyperactivity disorder (ADHD), predominantly inattentive type F90.0 ; Irritable bowel syndrome with both constipation and diarrhea K58.2 and Seizures R56.9 [facility] [id number] [place] [address] 90143- 0167 Sep, Mild intellectual disability F70 ; Depression, unspecified depression type F32.9 ; Anxiety F41.9 and BMI 40.0-44.9, adult Z68.41 [facility] [address], [place] [address]- 0774 Sep, [facility] [id number] [address] 09506- 4950 Sep, [facility] [id number] [place] [address] 93570- 8769 Sep, [facility] [id number] [address] 03078- 4802 Sep, [facility] [id number] [address] 55932- 4221 Sep, [facility] [id number] [address] [id number] Aug, Encounter for dental examination and cleaning without abnormal findings Z01.20 [facility] [id number] [address] [id number] Aug, Dental examination Z01.20 [facility] [id number] [place] [address] 82036- 4845 14 Aug, 2017 [facility] [address] [place] [address] 69777- 0641 Aug, Depression, unspecified depression type F32.9 ; Mild intellectual disability F70 and Anxiety F41.9 [facility] [address], [place] [address]- 2071 Aug, Mood disorder F39 ; Attention deficit hyperactivity disorder (ADHD), predominantly inattentive type F90.0 ; Irritable bowel syndrome with both constipation and diarrhea K58.2 and Seizures R56.9 [facility] [address], [place] [address]- 3059 Aug, Depression, unspecified depression type F32.9 ; Mild intellectual disability F70 and Anxiety F41.9 [facility] [address] [id number], [place] [address]- 2546 Aug, [facility] [id number] [place] [address] [id number] Jul, Dental examination Z01.20 and Dental caries K02.9 [facility] [address] [id number] [address]- 2546 Jun, Unspecified mood [affective] disorder F39 and 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 [facility] [id number] [place] [address] [phone] May, Encounter for dental examination and cleaning without abnormal findings Z01.20 [facility] [id number] [place] [address] [id number] Mar, Dental examination Z01.20 [facility] [address] [id number] [place] [place] [address] [id number] Sep, Dental examination Z01.20 [facility] [address] [id number] [place] [address] [id number] January, Dental examination Z01.20 [facility] [address] [id number] [place] [address] [id number] Dec, Encounter for dental examination Z01.20 [facility] [address] [id number] [id number] Dec, Dental examination Z01.20 [facility] [id number] [place] [address] [id number] Nov, Dental examination Z01.20 [facility] [address] [id number] [place] [address] [id number] Jul, Encounter for dental examination Z01.20 and Dental examination Z01.20 [facility] [address] [id number] [place] [address] [id number] Apr, Dental examination V72.2 [facility] [address] [id number] [place] [address] [id number] Mar, Dental examination V72.2 [facility] [address] [facility] [id number] [place] [address]- 0516 January, [facility] [address] [facility] [id number], [place] [address]- 2546 January, [facility] [address] [facility] [id number], [place] [address] 2546 January, [facility] [address] [facility] [id number], [place] [address] 2546 January, [facility] [address] [facility] [id number], [place] [address]- 8360 Jul, IMMUNIZATIONS No Known Immunizations SOCIAL HISTORY Never Assessed REASON FOR VISIT FYI PLAN OF CARE VITAL SIGNS MEDICATIONS Unknown [...]
--- OUTSIDE RECORDS SUMMARY | 2018-06-16 09:28 | XMS REPORT ---
Author Author YU SAMUEL Organization [facility] Address [address] [place] [address] Care Team Providers Care [employer] Name Role Phone YU SAMUEL Unavailable PROBLEMS Type Condition ICD9-CM Code MSD98-BX Code Onset Dates Condition Status SNOMED Code Problem Mood disorder F39 Active 79634026 Problem 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 Active 531948408 Problem Unspecified mood [affective] disorder F39 Active 45474142 Problem Irritable bowel syndrome with both constipation and diarrhea K58.2 Active 14257360 Problem Attention deficit hyperactivity disorder (ADHD), predominantly inattentive type F90.0 Active 23987777 Problem Postconcussion syndrome F07.81 Active 93810474 Problem Unsteady gait R26.81 Active 62028127 Problem Mild intellectual disability F70 Active 88125807 Problem Depression, unspecified depression type F32.9 Active 84252183 Problem 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 Active 26028544 Problem Anxiety F41.9 Active 90966002 ALLERGIES No Information ENCOUNTERS Encounter Location Date Diagnosis [facility] [id number] [place] [address] 95496- 1131 Jun, [facility] [id number] [place] [address] 66649- 5133 May, [facility] [id number] [place] [address] 36354- 9195 Apr, [facility] [id number] [place] [address] 95355- 6900 Mar, Nail hypertrophy L60.2 and Self-care deficit for hygiene R46.0 [facility] [id number] [place] [address] 70719- 8100 Mar, [facility] [address] [place] [address]- 3465 Mar, [facility] [id number] [place] [address] 99429- 1003 Mar, Anxiety F41.9 ; Mood disorder F39 and Dysfunction of both eustachian tubes H69.83 [facility] [id number] [place] [address] 34745- 5722 Mar, Seizures R56.9 [facility] [address] 85821- 7345 Mar, Folliculitis L73.9 [facility] [address] 58325- 0998 Mar, Mild intellectual disability F70 ; Depression, unspecified depression type F32.9 and Anxiety F41.9 [facility] [address] 96211- 7545 Mar, Seizures R56.9 and Folliculitis L73.9 [facility] [id number] [place] [address] 78468- 9670 Feb, [facility] [address] 58587- 2281 Feb, Postconcussion syndrome F07.81 and Folliculitis L73.9 [facility] [id number] [place] [address] 72765- 7757 Feb, Postconcussion syndrome F07.81 [facility] [id number] [place] [address] 41140- 0145 Feb, [facility] [id number] [place] [address] [phone] Feb, [facility] [id number] [place] [address] [id number] Feb, Dental caries extending into dentin K02.62 [facility] [id number] [place] [address] 53863- 3867 January, [facility] [id number] [place] [address] 33706- 4696 January, [facility] [id number] [place] [address] 54163- 7597 January, Onychomycosis B35.1 [facility] [id number] [place] [address] [phone] January, Dental caries extending into dentin K02.62 [facility] [id number] [place] [address] 45965- 5737 Dec, [facility] [address] 18238- 9514 Dec, [facility] [id number] [place] [address] 26576- 7322 Dec, [facility] [id number] [place] [address] 14578- 1567 Dec, Mild intellectual disability F70 ; Depression, unspecified depression type F32.9 ; Anxiety F41.9 and BMI 45.0-49.9, adult Z68.42 [facility] [id number] [place] [address] 27608- 3439 Dec, Folliculitis L73.9 [facility] [id number] [place] [address] 33250- 9712 Dec, Mild intellectual disability F70 ; Unsteady gait R26.81 and Generalized weakness R53.1 [facility] [address] [id number] Nov, [facility] [address] 38708- 3797 Nov, [facility] [id number] [place] [address] [phone]- [phone] Nov, Folliculitis L73.9 ; Tinea corporis B35.4 and Onychomycosis B35.1 [facility] [address] [id number] Oct, [facility] [id number] [place] [address] 02799- 2481 Oct, Mood disorder F39 [facility] [id number] [place] [address] 58129- 4366 Oct, [facility] [id number] [place] [address] 43893 -4860 Oct, Left hip pain M25.552 and Muscle spasm M62.838 [facility] [id number] [place] [address] [phone] Oct, [facility] [id number] [place] [address] 94313- 7333 Oct, 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 ; Anxiety F41.9 ; Onychomycosis B35.1 ; BMI 40.0-44.9, adult Z68.41 and Alkaline phosphatase elevation R74.8 [facility] [id number] [place] [address] 53133- 2581 Sep, Mild intellectual disability F70 [facility] [id number] [place] [address] 18034- 2039 Sep, [facility] [id number] [place] [address] 33087- 9093 Sep, Alkaline phosphatase elevation R74.8 [facility] [id number] [place] [address] 03011- 8947 Sep, Alkaline phosphatase elevation R74.8 [facility] [address] 03680- 7298 Sep, Mood disorder F39 ; Attention deficit hyperactivity disorder (ADHD), predominantly inattentive type F90.0 ; Irritable bowel syndrome with both constipation and diarrhea K58.2 and Seizures R56.9 [facility] [id number] [place] [address] 57755- 2950 Sep, Mild intellectual disability F70 ; Depression, unspecified depression type F32.9 ; Anxiety F41.9 and BMI 40.0-44.9, adult Z68.41 [facility] [address] [address]- 9365 Sep, [facility] [id number] [place] [address] 41762- 8867 Sep, [facility] [id number] [place] [address] 96628- 3529 Sep, [facility] [id number] [place] [address] 48175- 9701 Sep, [facility] [id number] [place] [address] 97893- 2830 Sep, [facility] [id number] [place] [address] [phone] Aug, Encounter for dental examination and cleaning without abnormal findings Z01.20 [facility] [id number] [place] [address] [phone] Aug, Dental examination Z01.20 [facility] [id number] [place] [address] 36041- 0764 14 Aug, 2017 [facility] [id number] [place] [address] 94289- 1613 Aug, Depression, unspecified depression type F32.9 ; Mild intellectual disability F70 and Anxiety F41.9 [facility] [address] [address]- 1421 Aug, Mood disorder F39 ; Attention deficit hyperactivity disorder (ADHD), predominantly inattentive type F90.0 ; Irritable bowel syndrome with both constipation and diarrhea K58.2 and Seizures R56.9 [facility] [address] [address]- 5383 Aug, Depression, unspecified depression type F32.9 ; Mild intellectual disability F70 and Anxiety F41.9 [facility] [address] [id number] [address]- 2546 Aug, [facility] [address] [id number] [place] [address] [phone] Jul, Dental examination Z01.20 and Dental caries K02.9 [facility] [address] [id number] [address]- 2546 Jun, Unspecified mood [affective] disorder F39 and 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 [facility] [id number] [place] [address] [phone] May, Encounter for dental examination and cleaning without abnormal findings Z01.20 [facility] [address] [id number] [place] [address] [phone] Mar, Dental examination Z01.20 [facility] [id number] [place] [address] [phone] Sep, Dental examination Z01.20 [facility] [id number] [place] [address] [phone] January, Dental examination Z01.20 [facility] [id number] [place] [address] [phone] Dec, Encounter for dental examination Z01.20 [facility] [address] [id number] [phone] Dec, Dental examination Z01.20 [facility] [id number] [place] [address] [phone] Nov, Dental examination Z01.20 [facility] [id number] [place] [address] [phone] Jul, Encounter for dental examination Z01.20 and Dental examination Z01.20 [facility] [id number] [place] [address] [phone] Apr, Dental examination V72.2 [facility] [address] [id number] [place] [address] [id number] Mar, Dental examination V72.2 [facility] [address] [facility] [id number] [place] [address]- 6186 January, [facility] [address] [facility] [id number] [address]- 2546 January, [facility] [address] [facility] [id number][place] [address] 2546 January, [facility] [address] [facility] [id number][place] [address] 2546 January, [facility] [address] [facility] [id number] [address]- 0273 Jul, IMMUNIZATIONS No Known Immunizations SOCIAL HISTORY Never Assessed REASON FOR VISIT requesting a returned call PLAN OF CARE VITAL SIGNS MEDICATIONS [...]
--- OUTSIDE RECORDS SUMMARY | 2018-06-16 09:28 | XMS REPORT ---
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 Active 696847377 Problem Unspecified mood [affective] disorder F39 Active 49381997 Problem Irritable bowel syndrome with both constipation and diarrhea K58.2 Active 33298527 Problem Attention deficit hyperactivity disorder (ADHD), predominantly inattentive type F90.0 Active 66481810 Problem Postconcussion syndrome F07.81 Active 05688860 Problem Unsteady gait R26.81 Active 78824100 Problem Mild intellectual disability F70 Active 94075320 Problem Depression, unspecified depression type F32.9 Active 74073178 Problem 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 Active 09265097 Problem Anxiety F41.9 Active 53332337 ALLERGIES No Information ENCOUNTERS Encounter Location Date Diagnosis [facility] [id number] [place] [address] 22183- 5429 Jun, [facility] [id number] [place] [address] 27734- 3764 May, [facility] [id number] [place] [address] 38526- 2411 Apr, [facility] [id number] [place] [address] 54196- 1557 Mar, Nail hypertrophy L60.2 and Self-care deficit for hygiene R46.0 [facility] [id number] [place] [address] 60992- 1900 Mar, [facility] [address] [place] [address]- 5929 Mar, [facility] [id number] [place] [address] 41774- 3152 Mar, Anxiety F41.9 ; Mood disorder F39 and Dysfunction of both eustachian tubes H69.83 [facility] [id number] [place] [address] 92661- 7554 Mar, Seizures R56.9 [facility] [address] 60856- 6195 Mar, Folliculitis L73.9 [facility] [address] 29701- 4367 Mar, Mild intellectual disability F70 ; Depression, unspecified depression type F32.9 and Anxiety F41.9 [facility] [address] 46217- 2427 Mar, Seizures R56.9 and Folliculitis L73.9 [facility] [id number] [place] [address] 68023- 8471 Feb, [facility] [address] 41871- 2710 Feb, Postconcussion syndrome F07.81 and Folliculitis L73.9 [facility] [id number] [place] [address] 37563- 7086 Feb, Postconcussion syndrome F07.81 [facility] [id number] [place] [address] 42748- 3720 Feb, [facility] [id number] [place] [address] [phone] Feb, [facility] [id number] [place] [address] [phone] Feb, Dental caries extending into dentin K02.62 [facility] [id number] [place] [address] 81431- 9645 January, [facility] [id number] [place] [address] 21876- 4474 January, [facility] [id number] [place] [address] 77139- 6960 January, Onychomycosis B35.1 [facility] [id number] [place] [address] [phone] January, Dental caries extending into dentin K02.62 [facility] [id number] [place] [address] 47790- 9322 Dec, [facility] [address] 83451- 1163 Dec, [facility] [id number] [place] [address] 36811- 7016 Dec, [facility] [id number] [place] [address] 98068- 7311 Dec, Mild intellectual disability F70 ; Depression, unspecified depression type F32.9 ; Anxiety F41.9 and BMI 45.0-49.9, adult Z68.42 [facility] [id number] [place] [address] 53574- 1786 Dec, Folliculitis L73.9 [facility] [id number] [place] [address] 08728- 1090 Dec, Mild intellectual disability F70 ; Unsteady gait R26.81 and Generalized weakness R53.1 [facility] [address] [id number] Nov, [facility] [address] 55417- 0569 Nov, [facility] [id number] [place] [address] [phone] Nov, Folliculitis L73.9 ; Tinea corporis B35.4 and Onychomycosis B35.1 [facility] [address] [id number] Oct, [facility] [id number] [place] [address] 59100- 5420 Oct, Mood disorder F39 [facility] [id number] [place] [address] 13641- 5766 Oct, [facility] [id number] [place] [address] 49929 -0391 Oct, Left hip pain M25.552 and Muscle spasm M62.838 [facility] [id number] [place] [address] [id number] Oct, [facility] [id number] [place] [address] 19969- 4856 Oct, 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 ; Anxiety F41.9 ; Onychomycosis B35.1 ; BMI 40.0-44.9, adult Z68.41 and Alkaline phosphatase elevation R74.8 [facility] [id number] [place] [address] 73106- 8145 Sep, Mild intellectual disability F70 [facility] [id number] [place] [address] 66269- 1084 Sep, [facility] [id number] [place] [address] 50685- 9839 Sep, Alkaline phosphatase elevation R74.8 [facility] [id number] [place] [address] 76855- 1161 Sep, Alkaline phosphatase elevation R74.8 [facility] [address] 63173- 2151 Sep, Mood disorder F39 ; Attention deficit hyperactivity disorder (ADHD), predominantly inattentive type F90.0 ; Irritable bowel syndrome with both constipation and diarrhea K58.2 and Seizures R56.9 [facility] [id number] [place] [address] 75917- 8206 Sep, Mild intellectual disability F70 ; Depression, unspecified depression type F32.9 ; Anxiety F41.9 and BMI 40.0-44.9, adult Z68.41 [facility] [address] [address]- 4076 Sep, [facility] [id number] [place] [address] 86303- 8048 Sep, [facility] [id number] [place] [address] 91813- 6017 Sep, [facility] [id number] [place] [address] 61222- 2578 Sep, [facility] [id number] [place] [address] 72756- 0127 Sep, [facility] [id number] [place] [address] [id number] Aug, Encounter for dental examination and cleaning without abnormal findings Z01.20 [facility] [id number] [place] [address] [phone] Aug, Dental examination Z01.20 [facility] [id number] [place] [address] 21751- 7425 14 Aug, 2017 [facility] [address] [place] [address] 63854- 7637 Aug, Depression, unspecified depression type F32.9 ; Mild intellectual disability F70 and Anxiety F41.9 [facility] [address] [address]- 6809 Aug, Mood disorder F39 ; Attention deficit hyperactivity disorder (ADHD), predominantly inattentive type F90.0 ; Irritable bowel syndrome with both constipation and diarrhea K58.2 and Seizures R56.9 [facility] [address] [address]- 4599 Aug, Depression, unspecified depression type F32.9 ; Mild intellectual disability F70 and Anxiety F41.9 [facility] [address] [id number] [address]- 2546 Aug, [facility] [id number] [place] [address] [phone] Jul, Dental examination Z01.20 and Dental caries K02.9 [facility] [address] [id number] [address]- 2546 Jun, Unspecified mood [affective] disorder F39 and 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 [facility] [address] [id number] [place] [address] [phone] May, Encounter for dental examination and cleaning without abnormal findings Z01.20 [facility] [address] [id number] [place] [address] [id number] Mar, Dental examination Z01.20 [facility] [id number] [place] [address] [id number] Sep, Dental examination Z01.20 [facility] [address] [id number] [place] [address] [id number] January, Dental examination Z01.20 [facility] [address] [id number] [place] [address] [id number] Dec, Encounter for dental examination Z01.20 [facility] [address] [id number] [phone] Dec, Dental examination Z01.20 [facility] [address] [id number] [place] [address] [phone] Nov, Dental examination Z01.20 [facility] [id number] [place] [address] [id number] Jul, Encounter for dental examination Z01.20 and Dental examination Z01.20 [facility] [id number] [place] [address] [id number] Apr, Dental examination V72.2 [facility] [id number] [place] [address] [id number] Mar, Dental examination V72.2 [facility] [address] [facility] [id number] [place] [address]- 4906 January, [facility] [address] [facility] [id number] [address]- 2546 January, [facility] [address] [facility] [id number] [address] 2546 January, [facility] [address] [facility] [id number], [place] [address] 2546 January, [facility] [address] [facility] [id number] [address]- 5983 Jul, IMMUNIZATIONS No Known Immunizations SOCIAL HISTORY [...]
--- OUTSIDE RECORDS SUMMARY | 2018-06-16 09:29 | XMS REPORT ---
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 Active 833286485 Problem Unspecified mood [affective] disorder F39 Active 89317851 Problem Irritable bowel syndrome with both constipation and diarrhea K58.2 Active 95760713 Problem Attention deficit hyperactivity disorder (ADHD), predominantly inattentive type F90.0 Active 08447558 Problem Postconcussion syndrome F07.81 Active 73309371 Problem Unsteady gait R26.81 Active 30636132 Problem Mild intellectual disability F70 Active 90927328 Problem Depression, unspecified depression type F32.9 Active 92999133 Problem 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 Active 80192346 Problem Anxiety F41.9 Active 85889716 ALLERGIES No Information ENCOUNTERS Encounter Location Date Diagnosis [facility] [id number] [place] [address]0140- 9070 Jun, [facility] [address] [address] Apr, [facility] [id number] [place] [address] 19850- 2738 Apr, [facility] [id number] [place] [address] 03040- 1094 Mar, [facility] [id number] [place] [address] 27515- 7615 Mar, [facility] [id number] [place] [address] 49948- 6747 Mar, Anxiety F41.9 ; Mood disorder F39 and Dysfunction of both eustachian tubes H69.83 [facility] [address] [address]- [address] Mar, Seizures R56.9 [facility] [address] 02659- 5432 Mar, Folliculitis L73.9 [facility] [address] 6[address]- [address] Mar, Mild intellectual disability F70 ; Depression, unspecified depression type F32.9 and Anxiety F41.9 [place] [address] [address]- 6255 Mar, Seizures R56.9 and Folliculitis L73.9 [place] [address] 09946- 3068 Feb, [facility] [address] 83837- 0855 Feb, Postconcussion syndrome F07.81 and Folliculitis L73.9 [place] [address] 51098- 5082 Feb, Postconcussion syndrome F07.81 [facility] [id number] [place] [address] 49104- 7352 Feb, [facility] [address] [id number] Feb, [facility] [address] [id number] Feb, Dental caries extending into dentin K02.62 [facility] [id number] [place] [address] 35413- 9492 January, [facility] [address] 92324- 8902 January, [place] [address] [address] January, Onychomycosis B35.1 [facility] [id number] [place] [address] [phone] January, Dental caries extending into dentin K02.62 [facility] [id number] [place] [address] 38296- 8226 Dec, [facility] [id number] [place] [address] 27890- 3106 Dec, [facility] [id number] [place] [address] 51721- 9525 Dec, [facility] [id number] [place] [address] 16872- 6077 Dec, Mild intellectual disability F70 ; Depression, unspecified depression type F32.9 ; Anxiety F41.9 and BMI 45.0-49.9, adult Z68.42 [facility] [id number] [place] [address] 85696- 5840 Dec, Folliculitis L73.9 [facility] [id number] [place] [address] 71998- 8477 Dec, Mild intellectual disability F70 ; Unsteady gait R26.81 and Generalized weakness R53.1 [facility] [address] [id number] Nov, [facility] [id number] [place] [address] 45059- 9133 Nov, [facility] [id number] [place] [address] 72832- 8976 Nov, Folliculitis L73.9 ; Tinea corporis B35.4 and Onychomycosis B35.1 [facility] [address] [place] [address] [phone] Oct, [facility] [id number] [place] [address] 94777- 4548 Oct, Mood disorder F39 [facility] [address] [place] [address] 18444- 9352 Oct, [facility] [address] [place] [address] 65454 -4443 Oct, Left hip pain M25.552 and Muscle spasm M62.838 [facility] [address] [place] [address] [phone] Oct, [facility] [address] [place] [address] 66241- 0593 Oct, 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 ; Anxiety F41.9 ; Onychomycosis B35.1 ; BMI 40.0-44.9, adult Z68.41 and Alkaline phosphatase elevation R74.8 [facility] [address] [place] [address] 05749- 7976 Sep, Mild intellectual disability F70 [facility] [id number] [place] [address] 23166- 1783 Sep, [facility] [id number] [place] [address] 93286- 5884 Sep, Alkaline phosphatase elevation R74.8 [facility] [address] [place] [address] 39839- 5230 Sep, Alkaline phosphatase elevation R74.8 [facility] [id number] [place] [address] 58849- 8111 Sep, Mood disorder F39 ; Attention deficit hyperactivity disorder (ADHD), predominantly inattentive type F90.0 ; Irritable bowel syndrome with both constipation and diarrhea K58.2 and Seizures R56.9 [facility] [address] [place] [address] 25106- 7624 Sep, Mild intellectual disability F70 ; Depression, unspecified depression type F32.9 ; Anxiety F41.9 and BMI 40.0-44.9, adult Z68.41 [facility] [address] [address]- 47[address] Sep, [facility] [address] [place] [address] 49189- 5913 Sep, [facility] [address] [place] [address] 48420- 7700 Sep, [facility] [id number] [place] [address] 72644- 1770 Sep, [facility] [address] [place] [address] 36004- 3556 Sep, [facility] [id number] [place] [address] [phone] Aug, Encounter for dental examination and cleaning without abnormal findings Z01.20 [facility] [address] [place] [address] [phone] Aug, Dental examination Z01.20 [facility] [address] [place] [address] 78041- 9707 Aug, [facility] [id number] [place] [address] 90342- 1132 Aug, Depression, unspecified depression type F32.9 ; Mild intellectual disability F70 and Anxiety F41.9 [facility] [address] [address]- 0994 Aug, Mood disorder F39 ; Attention deficit hyperactivity disorder (ADHD), predominantly inattentive type F90.0 ; Irritable bowel syndrome with both constipation and diarrhea K58.2 and Seizures R56.9 [facility] [address] [place] [address] 66113- 2281 Aug, Depression, unspecified depression type F32.9 ; Mild intellectual disability F70 and Anxiety F41.9 [facility] [address] [address]- 1313 Aug, [facility] [address] [place] [address] [id number] Jul, Dental examination Z01.20 and Dental caries K02.9 [facility] [id number] [place] [address] 16172- 1576 Jun, Unspecified mood [affective] disorder F39 and 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 [facility] [id number] [place] [address] [id number] May, Encounter for dental examination and cleaning without abnormal findings Z01.20 [facility] [id number] [place] [address] [phone] Mar, Dental examination Z01.20 [facility] [address] [id number] [place] [address] [phone] Sep, Dental examination Z01.20 [facility] [id number] [place] [address] [id number] January, Dental examination Z01.20 [facility] [id number] [place] [address] [id number] Dec, Encounter for dental examination Z01.20 [facility] [address] [id number] [place] [address] [id number] Dec, Dental examination Z01.20 [facility] [id number] [place] [address] [id number] Nov, Dental examination Z01.20 [facility] [address] [id number] [place] [address] [id number] Jul, Encounter for dental examination Z01.20 and Dental examination Z01.20 [facility] [id number] [place] [address] [id number] Apr, Dental examination V72.2 [facility] [id number] [place] [address] [phone] Mar, Dental examination V72.2 [facility] [address] [place] [address] 83795- 6676 January, [facility] [address] [facility] [id number] [address]- 2095 January, [facility] [address] [facility] [id number] [address]- 3551 January, [facility] [address] [facility] [id number] [address]- 2104 January, [facility] [address] [facility] [id number] [address]- 4210 Jul, IMMUNIZATIONS No Known Immunizations SOCIAL HISTORY Never Assessed REASON FOR VISIT Medication question PLAN OF CARE VITAL SIGNS MEDICATIONS Medication Instructions Dosage Frequency Start Date End Date Duration Status Strattera 100 mg Orally Once a day 1 capsule 24h 30 days Active RESULTS No Results [...]
--- OUTSIDE RECORDS SUMMARY | 2018-06-16 09:29 | XMS REPORT ---
Author Author RHODA MARILU 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 Active 079323975 Problem Unspecified mood [affective] disorder F39 Active 83478458 Problem Irritable bowel syndrome with both constipation and diarrhea K58.2 Active 17352486 Problem Attention deficit hyperactivity disorder (ADHD), predominantly inattentive type F90.0 Active 19349053 Problem Postconcussion syndrome F07.81 Active 83099972 Problem Unsteady gait R26.81 Active 42743698 Problem Mild intellectual disability F70 Active 29429781 Problem Depression, unspecified depression type F32.9 Active 77913336 Problem 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 Active 47470715 Problem Anxiety F41.9 Active 84353433 ALLERGIES No Information ENCOUNTERS Encounter Location Date Diagnosis [facility] [id number] [place] [address] 47053- 0075 Jun, [facility] [id number] [place] [address] 38564- 9760 Apr, [facility] [id number] [place] [address] 14584- 2225 Mar, [facility] [id number] [place] [address] 89746- 1730 Mar, [facility] [id number] [place] [address] 75785- 6764 Mar, [facility] [id number] [place] [address] 36953- 3267 Mar, Anxiety F41.9 ; Mood disorder F39 and Dysfunction of both eustachian tubes H69.83 [facility] [address] 61218- 7001 Mar, Seizures R56.9 [facility] [address] 54452- 0814 Mar, Folliculitis L73.9 [facility] [address] 68954- 5169 Mar, Mild intellectual disability F70 ; Depression, unspecified depression type F32.9 and Anxiety F41.9 [place] [address] 37964- 9228 Mar, Seizures R56.9 and Folliculitis L73.9 [place] [address] 81776- 6062 Feb, [facility] [address] 91189- 1140 Feb, Postconcussion syndrome F07.81 and Folliculitis L73.9 [place] [address] 20825- 3471 Feb, Postconcussion syndrome F07.81 [facility] [id number] [place] [address] 43386- 3906 Feb, [facility] [address] [id number] Feb, [facility] [address] [id number] Feb, Dental caries extending into dentin K02.62 [facility] [id number] [place] [address] 02951- 6039 January, [facility] [address] 70279- 2925 January, [place] [address] [address] January, Onychomycosis B35.1 [facility] [id number] [place] [address] [id number] January, Dental caries extending into dentin K02.62 [facility] [id number] [place] [address] 54608- 8085 Dec, [facility] [id number] [place] [address] 97202- 9781 Dec, [facility] [id number] [place] [address] 42641- 9713 Dec, [facility] [id number] [place] [address] 08708- 8213 Dec, Mild intellectual disability F70 ; Depression, unspecified depression type F32.9 ; Anxiety F41.9 and BMI 45.0-49.9, adult Z68.42 [facility] [id number] [place] [address] 33862- 3184 Dec, Folliculitis L73.9 [facility] [id number] [place] [address] 00059- 0657 Dec, Mild intellectual disability F70 ; Unsteady gait R26.81 and Generalized weakness R53.1 [facility] [address] [id number] Nov, [facility] [id number] [place] [address] 90472- 5360 Nov, [facility] [id number] [place] [address] 87398- 4650 Nov, Folliculitis L73.9 ; Tinea corporis B35.4 and Onychomycosis B35.1 [facility] [address] [place] [address] [id number] Oct, [facility] [id number] [place] [address] 51324- 9736 Oct, Mood disorder F39 [facility] [address] [place] [address] 95239- 9123 Oct, [facility] [address] [place] [address] 81745 -3507 Oct, Left hip pain M25.552 and Muscle spasm M62.838 [facility] [address] [place] [address] [id number] Oct, [facility] [address] [place] [address] 07319- 9840 Oct, 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 ; Anxiety F41.9 ; Onychomycosis B35.1 ; BMI 40.0-44.9, adult Z68.41 and Alkaline phosphatase elevation R74.8 [facility] [address] [place] [address] 36876- 3088 Sep, Mild intellectual disability F70 [facility] [id number] [place] [address] 76501- 8645 Sep, [facility] [id number] [place] [address] 60461- 7003 Sep, Alkaline phosphatase elevation R74.8 [facility] [address] [place] [address] 16702- 5030 Sep, Alkaline phosphatase elevation R74.8 [facility] [id number] [place] [address] 10689- 4497 Sep, Mood disorder F39 ; Attention deficit hyperactivity disorder (ADHD), predominantly inattentive type F90.0 ; Irritable bowel syndrome with both constipation and diarrhea K58.2 and Seizures R56.9 [facility] [address] [place] [address] 59484- 6054 Sep, Mild intellectual disability F70 ; Depression, unspecified depression type F32.9 ; Anxiety F41.9 and BMI 40.0-44.9, adult Z68.41 [facility] [address] [address]- 2022 Sep, [facility] [id number] [place] [address] 45539- 9531 Sep, [facility] [id number] [place] [address] 61719- 5621 Sep, [facility] [id number] [place] [address] 73335- 8677 Sep, [facility] [id number] [place] [address] 60006- 1522 Sep, [facility] [id number] [place] [address] [id number] Aug, Encounter for dental examination and cleaning without abnormal findings Z01.20 [facility] [address] [place] [address] [id number] Aug, Dental examination Z01.20 [facility] [address] [place] [address] 62780- 1451 Aug, [facility] [id number] [place] [address] 68928- 2338 Aug, Depression, unspecified depression type F32.9 ; Mild intellectual disability F70 and Anxiety F41.9 [facility] [address], [place] [address]- 2919 Aug, Mood disorder F39 ; Attention deficit hyperactivity disorder (ADHD), predominantly inattentive type F90.0 ; Irritable bowel syndrome with both constipation and diarrhea K58.2 and Seizures R56.9 [facility] [address] [place] [address] 47738- 1747 Aug, Depression, unspecified depression type F32.9 ; Mild intellectual disability F70 and Anxiety F41.9 [facility] [address], [place] [address]- 2309 Aug, [facility] [address] [place] [address] [id number] Jul, Dental examination Z01.20 and Dental caries K02.9 [facility] [id number] [place] [address] 75991- 4276 Jun, Unspecified mood [affective] disorder F39 and 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 [facility] [id number] [place] [address] [id number] May, Encounter for dental examination and cleaning without abnormal findings Z01.20 [facility] [id number] [place] [address] [id number] Mar, Dental examination Z01.20 [facility] [id number] [place] [address] [id number] Sep, Dental examination Z01.20 [facility] [id number] [place] [address] [id number] January, Dental examination Z01.20 [facility] [id number] [place] [address] [id number] Dec, Encounter for dental examination Z01.20 [facility] [id number] [place] [address] [id number] Dec, Dental examination Z01.20 [facility] [id number] [place] [address] [id number] Nov, Dental examination Z01.20 [facility] [id number] [place] [address] [id number] Jul, Encounter for dental examination Z01.20 and Dental examination Z01.20 [facility] [id number] [place] [address] [id number] Apr, Dental examination V72.2 [facility] [id number] [place] [address] [id number] Mar, Dental examination V72.2 [facility] [id number] [place] [address] 79209- 5166 January, [facility] [address] [facility] [id number] [address]- 5833 January, [facility] [address] [facility] [id number] [address]- 0261 January, [facility] [address] [facility] [id number], [place] [address]- 3828 January, [facility] [address] [facility] [id number], [place] [address]- 4811 Jul, IMMUNIZATIONS No Known Immunizations SOCIAL HISTORY Never Assessed REASON FOR VISIT f/Sal MARCIAL PLAN OF CARE Activity Details Follow Up 3 Months, prn Reason: VITAL SIGNS Height 59 in 2018-01-05 Weight 227.7 lbs 2018-01-05 Heart Rate 84 bpm 2018-01-05 Respiratory Rate 20 2018-01-05 BMI 45.98 kg/m2 2018-01-05 Blood pressure systolic 122 mmHg 2018-01-05 Blood pressure diastolic 72 mmHg 2018-01-05 MEDICATIONS Medication Instructions Dosage Frequency Start Date End Date Duration Status One-A-Day Bone Strength Active Elmiron 100 mg Orally Three times a day 1 capsule on an empty stomach 8h Active Diflucan 100 MG Orally Once a day 1 tablet 24h Active Aspirin 81 MG 1 tablet Active Meclizine HCl 25 MG Orally TID 1 tablet 8h Active Verapamil HCl ER 120 MG Orally Once a day 1 tablet 24h Active Lamotrigine 100 mg Orally Twice a day 1 tablet 12h Active Phenytoin 100 mg 3 tablets 12h Active VESIcare 5 mg Orally Once a day 1 tablet 24h Active Loratadine 10 mg Orally Once a day 1 tablet 24h Active Amitriptyline HCl 50 mg Orally at night 1 tablet Active Protonix 40 mg Orally Once a day 1 tablet 24h Active Ketoconazole 2 % Externally Once a day 1 application to affected area 24h Nov, Not-Taking Calcium 600-400 MG-UNIT Orally Once a day 24h Active Strattera 100 mg Orally Once a day 1 capsule 24h Active Topiramate 100 mg Orally Twice a day 1 tablet 12h Active Simvastatin 20 mg Orally Once a day 1 tablet 24h Active RESULTS No Results PROCEDURES Procedure Date Ordered Result Body Site [facility] VISIT ESTABLISHED PATIENT January 05, 2018 INSTRUCTIONS MEDICATIONS ADMINISTERED No Known Medications [...] 2018 Hospitalization History at least 5 inpatient BH treatments, last one in 2005 2005 and before
--- OUTSIDE RECORDS SUMMARY | 2018-06-16 09:29 | XMS REPORT ---
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 Active 122249815 Problem Unspecified mood [affective] disorder F39 Active 27073734 Problem Irritable bowel syndrome with both constipation and diarrhea K58.2 Active 72127533 Problem Attention deficit hyperactivity disorder (ADHD), predominantly inattentive type F90.0 Active 79260815 Problem Postconcussion syndrome F07.81 Active 48472170 Problem Unsteady gait R26.81 Active 00259814 Problem Mild intellectual disability F70 Active 19608154 Problem Depression, unspecified depression type F32.9 Active 17876860 Problem 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 Active 25717838 Problem Anxiety F41.9 Active 12986558 ALLERGIES No Information ENCOUNTERS Encounter Location Date Diagnosis [facility] [id number] [address] Jun, [facility] [id number] [place] [address]90- 1769 Apr, [facility] [id number] [place] [address]011- 8309 Mar, [facility] [id number] [place] [address] 97894- 7562 Mar, [facility] [id number] [address] Mar, Anxiety F41.9 ; Mood disorder F39 and Dysfunction of both eustachian tubes H69.83 [facility] [id number] [place] [address] 75609- 0620 Mar, Seizures R56.9 [facility] [address] [address]- [address] Mar, Folliculitis L73.9 [facility] [id number] [place] [address] 53877- 9010 Mar, Mild intellectual disability F70 ; Depression, unspecified depression type F32.9 and Anxiety F41.9 [facility] [address] [address]- [address] Mar, Seizures R56.9 and Folliculitis L73.9 [facility] [address] [address]- [address] Feb, [facility] [address] [address]- [address] Feb, Postconcussion syndrome F07.81 and Folliculitis L73.9 [facility] [id number] [place] [address] 25968- 3661 Feb, Postconcussion syndrome F07.81 [facility] [id number] [place] [address] 41673- 4004 Feb, [facility] [address] [id number] Feb, [facility] [address] [id number] Feb, Dental caries extending into dentin K02.62 [facility] [address] [address]14- [address] January, [facility] [id number] [place] [address] 23979- 1566 January, [facility] [id number] [place] [address] 36823- 3283 January, Onychomycosis B35.1 [facility] [id number] [place] [address] [id number] January, Dental caries extending into dentin K02.62 [facility] [id number] [place] [address] 49879- 9416 Dec, [facility] [id number] [place] [address] 90338- 8017 Dec, [facility] [id number] [place] [address] 04949- 3516 Dec, [facility] [address] [address]- [address]694 Dec, Mild intellectual disability F70 ; Depression, unspecified depression type F32.9 ; Anxiety F41.9 and BMI 45.0-49.9, adult Z68.42 [facility] [id number] [place] [address] 13015- 7331 Dec, Folliculitis L73.9 [facility] [id number] [place] [address] 72479- 6287 Dec, Mild intellectual disability F70 ; Unsteady gait R26.81 and Generalized weakness R53.1 [facility] [id number] [place] [address] [id number] Nov, [facility] [id number] [place] [address] 09315- 9221 Nov, [facility] [id number] [place] [address] 73763- 4894 Nov, Folliculitis L73.9 ; Tinea corporis B35.4 and Onychomycosis B35.1 [facility] [id number] [place] [address] [id number] Oct, [facility] [id number] [place] [address] 18784- 7569 Oct, Mood disorder F39 [facility] [id number] [place] [address] 61872- 4730 Oct, [facility] [id number] [place] [address] 51971 -3029 Oct, Left hip pain M25.552 and Muscle spasm M62.838 [facility] [id number] [place] [address] [id number] Oct, [facility] [id number] [place] [address] 91294- 6250 Oct, 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 ; Anxiety F41.9 ; Onychomycosis B35.1 ; BMI 40.0-44.9, adult Z68.41 and Alkaline phosphatase elevation R74.8 [facility] [id number] [place] [address] 53223- 9079 Sep, Mild intellectual disability F70 [facility] [id number] [place] [address] 30152- 1244 Sep, [facility] [id number] [place] [address] 61574- 8998 Sep, Alkaline phosphatase elevation R74.8 [facility] [id number] [place] [address] 27341- 4817 Sep, Alkaline phosphatase elevation R74.8 [facility] [id number] [place] [address] 29227- 8362 Sep, Mood disorder F39 ; Attention deficit hyperactivity disorder (ADHD), predominantly inattentive type F90.0 ; Irritable bowel syndrome with both constipation and diarrhea K58.2 and Seizures R56.9 [facility] [id number] [place] [address] 67544- 7946 Sep, Mild intellectual disability F70 ; Depression, unspecified depression type F32.9 ; Anxiety F41.9 and BMI 40.0-44.9, adult Z68.41 [facility] [id number] [place] [address] 43499- 3669 Sep, [facility] [address] [address] Sep, [facility] [id number], [place] [address] Sep, [facility] [address], [place] [address] Sep, [facility] [id number] [place] [address] 47626- 3749 Sep, [facility] [id number] [place] [address] [id number] Aug, Encounter for dental examination and cleaning without abnormal findings Z01.20 [facility] [id number] [place] [address] [id number] Aug, Dental examination Z01.20 [facility] [id number] [place] [address] 13422- 9977 14 Aug, 2017 [facility] [id number] [place] [address] 79685- 6717 Aug, Depression, unspecified depression type F32.9 ; Mild intellectual disability F70 and Anxiety F41.9 [facility] [address] [address] 08 Aug, 2017 Mood disorder F39 ; Attention deficit hyperactivity disorder (ADHD), predominantly inattentive type F90.0 ; Irritable bowel syndrome with both constipation and diarrhea K58.2 and Seizures R56.9 [facility] [address] [address] 99[address] Aug, Depression, unspecified depression type F32.9 ; Mild intellectual disability F70 and Anxiety F41.9 [facility] [address], [place] [address]- 9391 Aug, [facility] [id number] [place] [address] [id number] Jul, Dental examination Z01.20 and Dental caries K02.9 [facility] [address] [id number] [address] Jun, Unspecified mood [affective] disorder F39 and 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 [facility] [address] [id number] [id number] May, Encounter for dental examination and cleaning without abnormal findings Z01.20 [facility] [id number] [place] [address] [id number] Mar, Dental examination Z01.20 [facility] [id number] [place] [address] [id number] Sep, Dental examination Z01.20 [facility] [id number] [place] [address] [id number] January, Dental examination Z01.20 [facility] [id number] [place] [address] [id number] Dec, Encounter for dental examination Z01.20 [facility] [id number] [place] [address] [id number] Dec, Dental examination Z01.20 [facility] [id number] [place] [address] [id number] Nov, Dental examination Z01.20 [facility] [address] [id number] [id number] Jul, Encounter for dental examination Z01.20 and Dental examination Z01.20 [facility] [id number] [place] [address] [id number] Apr, Dental examination V72.2 [facility] [id number] [place] [address] [id number] Mar, Dental examination V72.2 [facility] [address] [id number] [address]- [address]26 January, [facility] [id number] [place] [address] [id number]- 1001 January, [facility] [address] [facility] [id number] [place] [address]- 3869 January, [facility] [address] [facility] [id number] [place] January, [facility] [address] [facility] [id number] [place] [address]- 9092 Jul, IMMUNIZATIONS No Known Immunizations SOCIAL HISTORY [...] foot surgery 2005 Surgical History Port replaced 2017 Hospitalization History at least 5 inpatient treatments, last one in 2005 2005 and before
--- OUTSIDE RECORDS SUMMARY | 2018-06-16 09:29 | XMS REPORT ---
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 Active 070767031 Problem Unspecified mood [affective] disorder F39 Active 69749414 Problem Irritable bowel syndrome with both constipation and diarrhea K58.2 Active 51218258 Problem Attention deficit hyperactivity disorder (ADHD), predominantly inattentive type F90.0 Active 50721147 Problem Postconcussion syndrome F07.81 Active 29821393 Problem Unsteady gait R26.81 Active 76550609 Problem Mild intellectual disability F70 Active 01446844 Problem Depression, unspecified depression type F32.9 Active 89369914 Problem 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 Active Problem Anxiety F41.9 Active 99554904 ALLERGIES Substance Reaction Event Type Date Status Zithromax Unknown Drug Allergy Dec, Active Promethazine HCl n/v Drug Allergy Dec, Active Macrobid n/v Drug Allergy Dec, Active Tetracycline HCl Unknown Drug Allergy Dec, Active Sulfamethoxazole dizziness Drug Allergy Dec, Active [place] Carbonate Unknown Drug Allergy Dec, Active Levaquin n/v Drug Allergy Dec, Active Keflex n/v Drug Allergy Dec, Active Estradiol Unknown Drug Allergy Dec, Active Depakote n/v Drug Allergy Dec, Active Codeine Sulfate Unknown Drug Allergy Dec, Active Codeine Phosphate n/v Drug Allergy Dec, Active Clindamycin HCl Unknown Drug Allergy Dec, Active Amoxicillin anaphylaxis and n/v Drug Allergy Dec, Active latex Unknown Non Drug Allergy Dec, Active ENCOUNTERS Encounter Location Date Diagnosis [facility] [address] [address] Jun, [facility] [id number] [place] [address] 10256- 9671 Apr, [facility] [id number] [place] [address] 22406- 3853 Apr, [facility] [id number] [place] [address] 81110- 1660 Mar, [facility] [id number] [place] [address] 70252- 1589 Mar, [facility] [id number] [place] [address] 70603- 8408 Mar, Anxiety F41.9 ; Mood disorder F39 and Dysfunction of both eustachian tubes H69.83 [facility] [id number] [place] [address] 20971- 9040 Mar, Seizures R56.9 [facility] [id number] [place] [address] 22179- 8296 Mar, Folliculitis L73.9 [facility] [id number] [place] [address] 69526- 2334 Mar, Mild intellectual disability F70 ; Depression, unspecified depression type F32.9 and Anxiety F41.9 [facility] [id number] [place] [address] 66237- 8086 Mar, Seizures R56.9 and Folliculitis L73.9 [facility] [address] [place] [address] 46975- 1777 Feb, [facility] [id number] [place] [address] 21178- 6671 Feb, Postconcussion syndrome F07.81 and Folliculitis L73.9 [facility] [address] [address] Feb, Postconcussion syndrome F07.81 [facility] [address] [address] Feb, [facility] [id number] [place] [address] [id number] Feb, [facility] [id number] [place] [address] [id number] Feb, Dental caries extending into dentin K02.62 [facility] [id number] [place] [address] 37480- 5907 January, [facility] [id number] [place] [address] 65198- 4007 January, [facility] [id number] [place] [address] 17855- 4064 January, Onychomycosis B35.1 [facility] [id number] [place] [address] [id number] January, Dental caries extending into dentin K02.62 [facility] [id number] [place] [address] 68378- 1776 Dec, [facility] [id number] [place] [address] 18966- 6128 Dec, [facility] [id number] [place] [address] 22910- 9644 Dec, [facility] [id number] [place] [address] 47760- 6077 Dec, Mild intellectual disability F70 ; Depression, unspecified depression type F32.9 ; Anxiety F41.9 and BMI 45.0-49.9, adult Z68.42 [facility] [id number] [place] [address] 26015- 5778 Dec, Folliculitis L73.9 [facility] [id number] [place] [address] 64365- 9236 Dec, Mild intellectual disability F70 ; Unsteady gait R26.81 and Generalized weakness R53.1 [facility] [address] [place] [address] [id number] 15 Nov, 2017 [facility] [address] 73716- [address] 14 Nov, 2017 [facility] [address] 126642- 4520 09 Nov, 2017 Folliculitis L73.9 ; Tinea corporis B35.4 and Onychomycosis B35.1 [facility] [id number] [place] [address] [phone] Oct, [facility] [address] [address]- [address] Oct, Mood disorder F39 [facility] [address] 12798- 7799 Oct, [facility] [address] [address] Oct, Left hip pain M25.552 and Muscle spasm M62.838 [facility] [id number] [place] [address] [id number] Oct, [facility] [id number] [place] [address] 47868- 0596 Oct, 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 ; Anxiety F41.9 ; Onychomycosis B35.1 ; BMI 40.0-44.9, adult Z68.41 and Alkaline phosphatase elevation R74.8 [facility] [id number] [place] [address] 86417- 9275 Sep, Mild intellectual disability F70 [facility] [address] 72082- 4202 Sep, [facility] [id number] [place] [address] 22005- 9947 Sep, Alkaline phosphatase elevation R74.8 [facility] [id number] [place] [address] 15207- 2015 Sep, Alkaline phosphatase elevation R74.8 [place] [address] 22714- 3082 Sep, Mood disorder F39 ; Attention deficit hyperactivity disorder (ADHD), predominantly inattentive type F90.0 ; Irritable bowel syndrome with both constipation and diarrhea K58.2 and Seizures R56.9 [place] [address] 60935- 7456 Sep, Mild intellectual disability F70 ; Depression, unspecified depression type F32.9 ; Anxiety F41.9 and BMI 40.0-44.9, adult Z68.41 [place] [address] 86227- 3360 Sep, [place] [address] 32099- 9171 Sep, [place] [address] 18416- 8254 Sep, [place] [address] 80333- 7649 Sep, [facility] [address] 10594- 8116 Sep, [facility] [address] [id number] Aug, Encounter for dental examination and cleaning without abnormal findings Z01.20 [facility] [address] [id number] Aug, Dental examination Z01.20 [facility] [address] 23855- 1889 14 Aug, 2017 [place] [address] 26030- 5858 Aug, Depression, unspecified depression type F32.9 ; Mild intellectual disability F70 and Anxiety F41.9 [facility] [address] [address] 08 Aug, 2017 Mood disorder F39 ; Attention deficit hyperactivity disorder (ADHD), predominantly inattentive type F90.0 ; Irritable bowel syndrome with both constipation and diarrhea K58.2 and Seizures R56.9 [facility] [address] [address]- [address] 05 Aug, 2017 Depression, unspecified depression type F32.9 ; Mild intellectual disability F70 and Anxiety F41.9 [facility] [id number] [place] [address] 15434- 1078 Aug, [facility] [id number] [place] [address] [id number] Jul, Dental examination Z01.20 and Dental caries K02.9 [facility] [id number] [place] [address] 75983- 6348 Jun, Unspecified mood [affective] disorder F39 and 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 [facility] [id number] [place] [address] [id number] May, Encounter for dental examination and cleaning without abnormal findings Z01.20 [facility] [id number] [place] [address] [id number] Mar, Dental examination Z01.20 [facility] [id number] [place] [address] [id number] Sep, Dental examination Z01.20 [facility] [id number] [place] [address] [id number] January, Dental examination Z01.20 [facility] [id number] [place] [address] [phone] Dec, Encounter for dental examination Z01.20 [facility] [id number] [place] [address] [id number] Dec, Dental examination Z01.20 [facility] [address] [id number] [id number] Nov, Dental examination Z01.20 [facility] [id number] [id number] Jul, Encounter for dental examination Z01.20 and Dental examination Z01.20 [facility] [address] [facility] [id number] [id number] Apr, Dental examination V72.2 [facility] [id number] [id number] Mar, Dental examination V72.2 [facility] [id number], [place] [address]- 2546 January, [facility] [id number] [place] [address] 80776- 2546 January, [facility] [address] [address]- 2546 January, [facility] [address] [address]- 2546 January, [facility] [id number], [place] [address]- 2546 Jul, IMMUNIZATIONS No Known Immunizations SOCIAL HISTORY Never Assessed REASON FOR VISIT florencio cao, lips turn blue, patient claims both hips are causing pain and she feels like she is about to pass out while sitting and standing Yovanny [facility] C[facility] VITAL SIGNS Height 59 in 2017-12-29 Weight 230 lbs 2017-12-29 Temperature 98.6 degrees Fahrenheit 2017-12-29 Heart Rate 100 bpm 2017-12-29 Respiratory Rate 20 2017-12-29 BMI 46.45 kg/m2 2017-12-29 Blood pressure systolic 126 mmHg 2017-12-29 Blood pressure diastolic 76 mmHg 2017-12-29 MEDICATIONS Medication Instructions Dosage Frequency Start Date End Date Duration Status Diflucan 100 MG Orally Once a day 1 tablet 24h Active Phenytoin 100 mg 3 tablets 12h Active One-A-Day Bone Strength Active Aspirin 81 MG 1 tablet Active VESIcare 5 mg Orally Once a day 1 tablet 24h Active Amitriptyline HCl 50 mg Orally at night 1 tablet 30 days Active Simvastatin 20 mg Orally Once a day 1 tablet 24h Active Loratadine 10 mg Orally Once a day 1 tablet 24h Active Meclizine HCl 25 MG Orally TID 1 tablet 8h Active Elmiron 100 mg Orally Three times a day 1 capsule on an empty stomach 8h Active Protonix 40 mg Orally Once a day 1 tablet 24h Active Calcium 600-400 MG-UNIT Orally Once a day 24h Active Ketoconazole 2 % Externally Once a day 1 application to affected area 24h Nov, Active Topiramate 100 mg Orally Twice a day 1 tablet 12h 30 days Active Lamotrigine 100 mg Orally Twice a day 1 tablet 12h 30 days Active Verapamil HCl ER 120 MG Orally Once a day 1 tablet 24h Active RESULTS No Results PROCEDURES Procedure Date Ordered Result Body Site [facility] VISIT ESTABLISHED PATIENT December 29, 2017 INSTRUCTIONS MEDICATIONS ADMINISTERED No Known Medications MEDICAL [...]
--- OUTSIDE RECORDS SUMMARY | 2018-06-16 09:30 | XMS REPORT ---
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 Active 602268367 Problem Unspecified mood [affective] disorder F39 Active 24023579 Problem Irritable bowel syndrome with both constipation and diarrhea K58.2 Active 61898023 Problem Attention deficit hyperactivity disorder (ADHD), predominantly inattentive type F90.0 Active 56427548 Problem Postconcussion syndrome F07.81 Active 36358723 Problem Unsteady gait R26.81 Active 80261213 Problem Mild intellectual disability F70 Active 07774600 Problem Depression, unspecified depression type F32.9 Active 30885159 Problem 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 Active 70669818 Problem Anxiety F41.9 Active 78087849 ALLERGIES Substance Reaction Event Type Date Status Zithromax Unknown Drug Allergy Nov, Active Promethazine HCl n/v Drug Allergy Nov, Active Macrobid n/v Drug Allergy Nov, Active Tetracycline HCl Unknown Drug Allergy Nov, Active Sulfamethoxazole dizziness Drug Allergy Nov, Active Lincolnia Carbonate Unknown Drug Allergy Nov, Active Levaquin n/v Drug Allergy Nov, Active Keflex n/v Drug Allergy Nov, Active Estradiol Unknown Drug Allergy Nov, Active Depakote n/v Drug Allergy Nov, Active Codeine Sulfate Unknown Drug Allergy Nov, Active Codeine Phosphate n/v Drug Allergy Nov, Active Clindamycin HCl Unknown Drug Allergy Nov, Active Amoxicillin anaphylaxis and n/v Drug Allergy Nov, Active latex Unknown Non Drug Allergy Nov, Active ENCOUNTERS Encounter Location Date Diagnosis [facility] [id number] [place] [address] [phone] Jun, [facility] [id number] [place] [address] [phone]- [phone] Apr, [facility] [id number] [place] [address] [phone]- [phone] Mar, [facility] [id number] [place] [address] [phone]- [phone] Mar, Anxiety F41.9 ; Mood disorder F39 and Dysfunction of both eustachian tubes H69.83 [facility] [id number] [place] [address] [phone]- [phone] Mar, Seizures R56.9 [facility] [id number] [place] [address] 57783- [phone] Mar, Folliculitis L73.9 [facility] [id number] [place] [address] [phone]- [phone] Mar, Mild intellectual disability F70 ; Depression, unspecified depression type F32.9 and Anxiety F41.9 [facility] [id number] [place] [address] 34264- [phone] Mar, Seizures R56.9 and Folliculitis L73.9 [facility] [id number] [place] [address] 47508- 8140 Feb, [facility] [id number] [place] [address] [phone]- [phone] Feb, Postconcussion syndrome F07.81 and Folliculitis L73.9 [facility] [id number] [place] [address] 27277- 0813 Feb, Postconcussion syndrome F07.81 [facility] [id number] [place] [address] [phone]- [phone] Feb, [facility] [id number] [place] [address] [phone] Feb, [facility] [id number] [id number] Feb, Dental caries extending into dentin K02.62 [facility] [address] [address] January, [facility] [address] [address] January, [facility] [id number] [place] [address] [phone] January, Onychomycosis B35.1 [facility] [id number] [place] [address] [phone] January, Dental caries extending into dentin K02.62 [facility] [id number] [place] [address] [phone] Dec, [facility] [id number] [place] [address] [phone] Dec, [facility] [id number] [place] [address] 61068- [phone] Dec, [facility] [id number] [place] [address] 35607- [phone] Dec, Mild intellectual disability F70 ; Depression, unspecified depression type F32.9 ; Anxiety F41.9 and BMI 45.0-49.9, adult Z68.42 [facility] [id number] [place] [address] 44431- 4402 Dec, Folliculitis L73.9 [facility] [id number] [place] [address] [phone]- 5381 Dec, Mild intellectual disability F70 ; Unsteady gait R26.81 and Generalized weakness R53.1 [facility] [address] [phone] Nov, [facility] [id number] [place] [address] [phone]- 0271 Nov, [facility] [id number] [place] [address] [phone]- [phone] Nov, Folliculitis L73.9 ; Tinea corporis B35.4 and Onychomycosis B35.1 [facility] [id number] [place] [address] [id number] Oct, [facility] [address] [phone]- [phone] Oct, Mood disorder F39 [facility] [id number] [place] [address] [phone]- [phone] Oct, [facility] [id number] [place] [address] [phone] -[phone] Oct, Left hip pain M25.552 and Muscle spasm M62.838 [facility] [id number] [place] [address] [phone] Oct, [facility] [id number] [place] [address] 41969- 1783 Oct, 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 ; Anxiety F41.9 ; Onychomycosis B35.1 ; BMI 40.0-44.9, adult Z68.41 and Alkaline phosphatase elevation R74.8 [facility] [id number] [place] [address] 88421- [phone] Sep, Mild intellectual disability F70 [facility] [id number] [place] [address] 20704- 6499 Sep, [facility] [id number] [place] [address] [phone]- 0060 Sep, Alkaline phosphatase elevation R74.8 [facility] [id number] [place] [address] 48456- 0525 Sep, Alkaline phosphatase elevation R74.8 [facility] [id number] [place] [address] 28056- 2951 Sep, Mood disorder F39 ; Attention deficit hyperactivity disorder (ADHD), predominantly inattentive type F90.0 ; Irritable bowel syndrome with both constipation and diarrhea K58.2 and Seizures R56.9 [facility] [id number] [place] [address] 69301- 1764 Sep, Mild intellectual disability F70 ; Depression, unspecified depression type F32.9 ; Anxiety F41.9 and BMI 40.0-44.9, adult Z68.41 [facility] [id number] [place] [address] 01119- 7817 Sep, [facility] [id number] [place] [address] 25903- 2362 Sep, [facility] [id number] [place] [address] [phone]- [phone] Sep, [facility] [id number] [place] [address] [phone]- [phone] Sep, [facility] [id number] [place] [address] 40414- [phone] Sep, [facility] [id number] [place] [address] [phone] Aug, Encounter for dental examination and cleaning without abnormal findings Z01.20 [facility] [id number] [place] [address] [id number] Aug, Dental examination Z01.20 [facility] [id number] [place] [address] 32499- 3930 Aug, [facility] [id number] [place] [address] [phone]- [phone] Aug, Depression, unspecified depression type F32.9 ; Mild intellectual disability F70 and Anxiety F41.9 [facility] [id number] [place] [address] 12833- [phone] Aug, Mood disorder F39 ; Attention deficit hyperactivity disorder (ADHD), predominantly inattentive type F90.0 ; Irritable bowel syndrome with both constipation and diarrhea K58.2 and Seizures R56.9 [facility] [address] [address]- 4237 Aug, Depression, unspecified depression type F32.9 ; Mild intellectual disability F70 and Anxiety F41.9 [facility] [id number] [place] [address] [phone]- [phone] Aug, [facility] [id number] [place] [address] [phone] Jul, Dental examination Z01.20 and Dental caries K02.9 [facility] [id number] [place] [address] [phone]- 7417 Jun, Unspecified mood [affective] disorder F39 and 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 [facility] [id number] [place] [address] [phone] May, Encounter for dental examination and cleaning without abnormal findings Z01.20 [facility] [id number] [place] [address] [phone] Mar, Dental examination Z01.20 [facility] [id number] [place] [address] [phone] Sep, Dental examination Z01.20 [facility] [id number] [place] [address] [id number] January, Dental examination Z01.20 [facility] [id number] [place] [address] [id number] Dec, Encounter for dental examination Z01.20 [facility] [id number] [place] [address] [phone] Dec, Dental examination Z01.20 [facility] [id number] [place] [address] [id number] Nov, Dental examination Z01.20 [facility] [id number] [place] [address] [phone] Jul, Encounter for dental examination Z01.20 and Dental examination Z01.20 [facility] [address] [facility] [id number] [phone] Apr, Dental examination V72.2 [facility] [address] [facility] [id number] [id number] Mar, Dental examination V72.2 [facility] [id number], [place] [address] 2546 January, [facility] [address] [place] [address]- 2546 January, [facility] [address], [place] [address] 2546 January, [facility] [address] [place] [address] 2546 January, [facility] [id number] [address]- 8636 Jul, IMMUNIZATIONS No Known Immunizations SOCIAL HISTORY Never Assessed REASON FOR VISIT yeast infection, rash and swelling in between legs----DBennettRN, heat rash under breasts PLAN OF CARE VITAL SIGNS Height 59 in 2017-12-02 Weight 227 lbs 2017-12-02 Temperature 98.1 degrees Fahrenheit 2017-12-02 Heart Rate 100 bpm 2017-12-02 Respiratory Rate 20 2017-12-02 BMI 45.84 kg/m2 2017-12-02 Blood pressure systolic 122 mmHg 2017-12-02 Blood pressure diastolic 74 mmHg 2017-12-02 MEDICATIONS Medication Instructions Dosage Frequency Start Date End Date Duration Status VESIcare 5 mg Orally Once a day 1 tablet 24h Active Protonix 40 mg Orally Once a day 1 tablet 24h Active Aspirin 81 MG 1 tablet Active One-A-Day Bone Strength Active Simvastatin 20 mg Orally Once a day 1 tablet 24h Active Amitriptyline HCl 50 mg Orally at night 1 tablet 30 days Active Diflucan 100 MG Orally Once a day 1 tablet 24h Active Phenytoin 100 mg 3 tablets 12h Active Lamotrigine 100 mg Orally Twice a day 1 tablet 12h 30 days Active Verapamil HCl ER 120 MG Orally Once a day 1 tablet 24h Active Loratadine 10 mg Orally Once a day 1 tablet 24h Active Bactrim DS 800-160 MG Orally Twice a day 1 tablet 12h Nov,Nov 10 day(s) Active Meclizine HCl 25 MG Orally TID 1 tablet 8h Active Calcium 600-400 MG-UNIT Orally Once a day 24h Active Topiramate 100 mg Orally Twice a day 1 tablet 12h 30 days Active Elmiron 100 mg Orally Three times a day 1 capsule on an empty stomach 8h Active Ketoconazole 2 % Externally Once a day 1 application to affected area 24h Nov, Active RESULTS No Results PROCEDURES Procedure Date Ordered Result Body Site [facility] VISIT ESTABLISHED PATIENT December 02, 2017 INSTRUCTIONS MEDICATIONS ADMINISTERED No Known Medications [...]
--- OUTSIDE RECORDS SUMMARY | 2018-06-16 09:30 | XMS REPORT ---
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 Active 079176990 Problem Unspecified mood [affective] disorder F39 Active 78625511 Problem Irritable bowel syndrome with both constipation and diarrhea K58.2 Active 94399096 Problem Attention deficit hyperactivity disorder (ADHD), predominantly inattentive type F90.0 Active 21715718 Problem Postconcussion syndrome F07.81 Active 91239273 Problem Unsteady gait R26.81 Active 41722532 Problem Mild intellectual disability F70 Active 05470358 Problem Depression, unspecified depression type F32.9 Active 24791394 Problem 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 [address] [address] Jun, [facility] [id number] [place] [address]01- 6316 Apr, [facility] [address], [place] [address] Mar, [facility] [id number] [place] [address] 82013- 5812 Mar, Anxiety F41.9 ; Mood disorder F39 and Dysfunction of both eustachian tubes H69.83 [facility] [id number] [place] [address] 43260- 4698 Mar, Seizures R56.9 [facility] [address] 82862- 5555 Mar, Folliculitis L73.9 [facility] [id number] [place] [address] 45342- 4242 Mar, Mild intellectual disability F70 ; Depression, unspecified depression type F32.[address] [facility] [address] 48188- 3445 Mar, Seizures R56.[address] [facility] [address] 47755- 7247 Feb, [facility] [address] 25610- 9212 Feb, Postconcussion syndrome F07.[address] [facility] [address] 33635- 4152 Feb, Postconcussion syndrome F07.81 [facility] [address] 33286- 4860 Feb, [facility] [address] [id number] Feb, [facility] [address] [id number] Feb, Dental caries extending into dentin K02.62 [facility] [id number] [place] [address] 39024- 5260 January, [facility] [address] 87091- 9530 January, [facility] [id number] [place] [address] 66004- 6887 January, Onychomycosis B35.1 [facility] [address] [id number] January, Dental caries extending into dentin K02.62 [facility] [id number] [place] [address] 27157- 5537 Dec, [facility] [address] [id number]- 8511 Dec, [facility] [address] 17277- 4140 Dec, [facility] [address] 89182- 3119 Dec, Mild intellectual disability F70 ; Depression, unspecified depression type F32.9 ; Anxiety F41.9 and BMI 45.0-49.9, adult Z68.42 [facility] [address] 28410- 6415 Dec, Folliculitis L73.9 [facility] [address] 61803- 4404 Dec, Mild intellectual disability F70 ; Unsteady gait R26.81 and Generalized weakness R53.1 [facility] [id number] [place] [id number] Nov, [facility] [id number] [place] [address] 62987- 3842 Nov, [facility] [id number] [place] [address] 10274- 0407 Nov, Folliculitis L73.9 ; Tinea corporis B35.4 and Onychomycosis B35.1 [facility] [id number] [place] [address] [id number] Oct, [facility] [address] 05600- 0245 Oct, Mood disorder F39 [facility] [id number] [place] [address] 90332- 9692 Oct, [facility] [address], [place] [address] Oct, Left hip pain M25.552 and Muscle spasm M62.838 [facility] [address] [id number] Oct, 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 [id number] [place] [address] 65935- 7064 Sep, Mild intellectual disability F70 [facility] [id number] [place] [address] 27420- 4299 Sep, [facility] [id number] [place] [address] 43013- 8409 Sep, Alkaline phosphatase elevation R74.8 [facility] [id number] [place] [address] 20946- 9975 Sep, Alkaline phosphatase elevation R74.8 [facility] [id number] [place] [address] 82488- 9772 Sep, Mood disorder F39 ; Attention deficit hyperactivity disorder (ADHD), predominantly inattentive type F90.0 ; Irritable bowel syndrome with both constipation and diarrhea K58.[address] [facility] [address] [place] [address] 69290- 2592 Sep, Mild intellectual disability F70 ; Depression, unspecified depression type F32.9 ; Anxiety F41.9 and BMI 40.0-44.9, adult Z68.41 [facility] [address] [place] [address] 79183- 9697 Sep, [facility] [id number] [place] [address] 93697- [address]236 Sep, [facility] [id number] [place] [address] 28397- [address] Sep, [facility] [id number] [place] [id number] Sep, [facility] [id number] [place] [address] 70517- 0008 Sep, [facility] [id number] [place] [address] [id number] Aug, Encounter for dental examination and cleaning without abnormal findings Z01.20 [facility] [address] [id number] Aug, Dental examination Z01.20 [facility] [id number] [place] [address] 69058- 4687 Aug, [facility] [id number] [place] [address] 03583- 7388 Aug, Depression, unspecified depression type F32.9 ; Mild intellectual disability F70 and Anxiety F41.9 [facility] [id number] [place] [address] 16130- 1674 Aug, Mood disorder F39 ; Attention deficit hyperactivity disorder (ADHD), predominantly inattentive type F90.0 ; Irritable bowel syndrome with both constipation and diarrhea K58.[address] [facility] [id number] [place] [address] 03124- 5801 Aug, Depression, unspecified depression type F32.9 ; Mild intellectual disability F70 and Anxiety F41.9 [facility] [id number] [place] [address] 71220- 9680 Aug, [facility] [id number] [place] [address] [id number] Jul, Dental examination Z01.20 [address] Dental caries K02.9 [facility] [id number] [place] [address] 60306- 7879 Jun, Unspecified mood [affective] disorder F39 and 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 [facility] [id number] [place] [address] [id number] May, Encounter for dental examination and cleaning without abnormal findings Z01.20 [facility] [address] [id number] [id number] Mar, Dental examination Z01.20 [facility] [address] [id number] [place] [address] [id number] Sep, Dental examination Z01.20 [facility] [id number] [place] [address] [id number] January, Dental examination Z01.20 [facility] [id number] [place] [address] [id number] Dec, Encounter for dental examination Z01.20 [facility] [id number] [place] [address] [id number] Dec, Dental examination Z01.20 [facility] [address] [id number] [place] [address] [id number] Nov, Dental examination Z01.20 [facility] [address] [id number] [place] [address] [id number] Jul, Encounter for dental examination Z01.20 and Dental examination Z01.20 [facility] [id number] [place] [address] [id number] Apr, Dental examination V72.2 [facility] [id number] [place] [address] [id number] Mar, Dental examination V72.2 [facility] [id number] [place] [address] 96556- 0056 January, [facility] [id number] [place] [address] 95298- 6376 January, [facility] [id number] [place] [address] 37070- [address] January, [facility] [address] [facility] [id number] [place] [address]- [address] January, [facility] [address] [facility] [id number] [place] [address]- 2827 Jul, IMMUNIZATIONS No Known Immunizations SOCIAL HISTORY Never Assessed REASON FOR VISIT r/s appt PLAN OF CARE VITAL SIGNS MEDICATIONS Unknown [...]
--- OUTSIDE RECORDS SUMMARY | 2018-06-16 09:30 | XMS REPORT ---
Author Author YU SAMUEL Organization [facility] Address [address] [place] [address] Care Team Providers Care Radiology Resident Name Role Phone YU SAMUEL Unavailable PROBLEMS Type Condition ICD9-CM Code PPC97-FE Code Onset Dates Condition Status SNOMED Code Problem Mood disorder F39 Active 00592780 Problem 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 Active 652718199 Problem Unspecified mood [affective] disorder F39 Active 81597809 Problem Irritable bowel syndrome with both constipation and diarrhea K58.2 Active 03795350 Problem Attention deficit hyperactivity disorder (ADHD), predominantly inattentive type F90.0 Active 51185393 Problem Postconcussion syndrome F07.81 Active 31924451 Problem Unsteady gait R26.81 Active 43562747 Problem Mild intellectual disability F70 Active 59299067 Problem Depression, unspecified depression type F32.9 Active 43372041 Problem 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 Active 12705640 Problem Anxiety F41.9 Active 27059422 ALLERGIES No Information ENCOUNTERS Encounter Location Date Diagnosis [facility] [id number] [place] [address] 02778- 7778 Jun, [facility] [id number] [place] [address] 60132- 8573 Apr, [facility] [id number] [place] [address] 05892- 5525 Mar, [facility] [id number] [place] [address] 95436- 2485 Mar, Anxiety F41.9 ; Mood disorder F39 and Dysfunction of both eustachian tubes H69.83 [facility] [id number] [place] [address] 87542- 1577 Mar, Seizures R56.9 [facility] [id number] [place] [address] 46811- 2086 Mar, Folliculitis L73.9 [facility] [id number] [place] [address] 61304- 7508 Mar, Mild intellectual disability F70 ; Depression, unspecified depression type F32.9 and Anxiety F41.9 [facility] [address] 66438- 4552 Mar, Seizures R56.9 and Folliculitis L73.9 [facility] [id number] [place] [address] 16265- 2795 Feb, [facility] [id number] [place] [address] 65549- 8052 Feb, Postconcussion syndrome F07.81 and Folliculitis L73.9 [facility] [id number] [place] [address] 49622- 7297 Feb, Postconcussion syndrome F07.81 [facility] [id number] [place] [address] 74337- 6076 Feb, [facility] [id number] [place] [address] [id number] Feb, [facility] [id number] [place] [address] [phone] Feb, Dental caries extending into dentin K02.62 [facility] [id number] [place] [address] 83680- 8862 January, [facility] [id number] [place] [address] 83682- 3942 January, [facility] [id number] [place] [address] 08163- 6599 January, Onychomycosis B35.1 [facility] [address] [place] [address] [phone] January, Dental caries extending into dentin K02.62 [facility] [id number] [place] [address] 21458- 9861 Dec, [facility] [address] 01736- 0134 Dec, [facility] [address] 18412- 7394 Dec, [facility] [address] 92487- 8603 Dec, Mild intellectual disability F70 ; Depression, unspecified depression type F32.9 ; Anxiety F41.9 and BMI 45.0-49.9, adult Z68.42 [facility] [id number] [place] [address] 71744- 5615 Dec, Folliculitis L73.9 [facility] [address] 22064- 5576 Dec, Mild intellectual disability F70 ; Unsteady gait R26.81 and Generalized weakness R53.1 [facility] [id number] [place] [address] [id number] Nov, [facility] [id number] [place] [address] 88088- 3489 Nov, [facility] [id number] [place] [address] 65827- 2342 Nov, Folliculitis L73.9 ; Tinea corporis B35.4 and Onychomycosis B35.1 [facility] [id number] [place] [address] [phone] Oct, [facility] [address] 76270- 3521 Oct, Mood disorder F39 [facility] [id number] [place] [address] 52371- 4646 Oct, [facility] [address] 10988 -5420 Oct, Left hip pain M25.552 and Muscle spasm M62.838 [facility] [address] [place] [address] [phone] Oct, [facility] [id number] [place] [address] 45085- 3242 Oct, 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 ; Anxiety F41.9 ; Onychomycosis B35.1 ; BMI 40.0-44.9, adult Z68.41 and Alkaline phosphatase elevation R74.8 [facility] [id number] [place] [address] 71938- 0025 Sep, Mild intellectual disability F70 [facility] [id number] [place] [address] 67788- 5892 Sep, [facility] [id number] [place] [address] 62316- 1402 Sep, Alkaline phosphatase elevation R74.8 [facility] [address] [place] [address] 85753- 9440 Sep, Alkaline phosphatase elevation R74.8 [facility] [id number] [place] [address] 98139- 4500 Sep, Mood disorder F39 ; Attention deficit hyperactivity disorder (ADHD), predominantly inattentive type F90.0 ; Irritable bowel syndrome with both constipation and diarrhea K58.2 and Seizures R56.9 [facility] [address] [place] [address] 92421- 1161 Sep, Mild intellectual disability F70 ; Depression, unspecified depression type F32.9 ; Anxiety F41.9 and BMI 40.0-44.9, adult Z68.41 [facility] [address] [place] [address] 04484- 7082 Sep, [facility] [id number] [place] [address] 83889- 8122 Sep, [facility] [address] [address]- 4369 Sep, [facility] [id number] [place] [address] 42608- 2418 Sep, [facility] [id number] [place] [address] 38477- 3551 Sep, [facility] [id number] [place] [address] [phone] Aug, Encounter for dental examination and cleaning without abnormal findings Z01.20 [facility] [id number] [place] [address] [phone] Aug, Dental examination Z01.20 [facility] [id number] [place] [address] 18479- 7518 Aug, [facility] [id number] [place] [address] 44828- 3337 Aug, Depression, unspecified depression type F32.9 ; Mild intellectual disability F70 and Anxiety F41.9 [facility] [id number] [place] [address] 77902- 3085 Aug, Mood disorder F39 ; Attention deficit hyperactivity disorder (ADHD), predominantly inattentive type F90.0 ; Irritable bowel syndrome with both constipation and diarrhea K58.2 and Seizures R56.9 [facility] [id number] [place] [address] 73303- 6517 Aug, Depression, unspecified depression type F32.9 ; Mild intellectual disability F70 and Anxiety F41.9 [facility] [address] [place] [address] 24629- 3156 Aug, [facility] [address] [place] [address] [id number] Jul, Dental examination Z01.20 and Dental caries K02.9 [facility] [id number] [place] [address] 28071- 6873 Jun, Unspecified mood [affective] disorder F39 and 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 [facility] [address] [id number] [phone] May, Encounter for dental examination and cleaning without abnormal findings Z01.20 [facility] [address] [id number] [phone] Mar, Dental examination Z01.20 [facility] [id number] [place] [address] [id number] Sep, Dental examination Z01.20 [facility] [id number] [place] [address] [phone] January, Dental examination Z01.20 [facility] [id number] [place] [address] [id number] Dec, Encounter for dental examination Z01.20 [facility] [id number] [place] [address] [phone] Dec, Dental examination Z01.20 [facility] [id number] [place] [address] [id number] Nov, Dental examination Z01.20 [facility] [id number] [place] [address] [id number] Jul, Encounter for dental examination Z01.20 and Dental examination Z01.20 [facility] [id number] [place] [address] [id number] Apr, Dental examination V72.2 [facility] [address] [id number] [place] [address] [id number] Mar, Dental examination V72.2 [facility] [id number] [address]- 8226 January, [facility] [id number] [place] [address] 21138- 1696 January, [facility] [id number] [place] [address] 46054- 1576 January, [facility] [address] [facility] [id number] [place] [address]- 6257 January, [facility] [address] [facility] [id number] [place] [address]- 8244 Jul, IMMUNIZATIONS No Known Immunizations SOCIAL HISTORY [...]
--- OUTSIDE RECORDS SUMMARY | 2018-06-16 09:31 | XMS REPORT ---
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 Name Role Phone YU SAMUEL Unavailable PROBLEMS Type Condition ICD9-CM Code [id number] Code Onset Dates Condition Status SNOMED Code Problem Attention deficit hyperactivity disorder (ADHD), predominantly inattentive type F90.0 Active 84730004 Problem Unspecified mood [affective] disorder F39 Active 26274669 Problem Mood disorder F39 Active 57141567 Problem Irritable bowel syndrome with both constipation and diarrhea K58.2 Active 95225110 Problem Unsteady gait R26.81 Active 43042011 Problem 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 Active 12720705 Problem Depression, unspecified depression type F32.9 Active 60890664 Problem 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 Active 992959210 Problem Anxiety F41.9 Active 72189147 Problem Mild intellectual disability F70 Active 47621966 ALLERGIES No Information ENCOUNTERS Encounter Location Date Diagnosis [facility] [id number] [place] [address] 49894- 5098 Mar, [facility] [id number] [place] [address] 28810- 7397 Mar, [facility] [id number] [place] [address] 76767- 7926 Feb, [facility] [id number] [place] [address] 18232- 6518 Feb, [facility] [id number] [place] [address] [phone] Feb, [facility] [id number] [place] [address] [phone] Feb, Dental caries extending into dentin K02.62 [facility] [id number] [place] [address] 34070- 7000 January, [facility] [id number] [place] [address] 28334- 9473 January, [facility] [id number] [place] [address] 00194- 1947 January, Onychomycosis B35.1 [facility] [address] [id number] January, Dental caries extending into dentin K02.62 [facility] [id number] [place] [address] 02635- 0129 Dec, [facility] [id number] [place] [address] 52851- 2825 Dec, [facility] [id number] [place] [address] 67302- 7004 Dec, [facility] [id number] [place] [address] 75475- 3903 Dec, Mild intellectual disability F70 ; Depression, unspecified depression type F32.9 ; Anxiety F41.9 and BMI 45.0-49.9, adult Z68.42 [facility] [id number] [place] [address] 58713- 7609 Dec, Folliculitis L73.9 [facility] [id number] [place] [address] 21148- 6985 Dec, Mild intellectual disability F70 ; Unsteady gait R26.81 and Generalized weakness R53.1 [facility] [id number] [place] [address] [phone] Nov, [facility] [address] 08669- 0584 Nov, [facility] [id number] [place] [address] 90512- 7859 Nov, Folliculitis L73.9 ; Tinea corporis B35.4 and Onychomycosis B35.1 [facility] [address] [id number] Oct, [facility] [id number] [place] [address] [address]78 Oct, Mood disorder F39 [facility] [id number] [place] [address] 80510- 7063 Oct, [facility] [id number] [place] [address] 60275 -1745 Oct, Left hip pain M25.552 and Muscle spasm M62.838 [facility] [id number] [place] [address] [phone] Oct, [facility] [id number] [place] [address] 39807- 5220 Oct, 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 ; Anxiety F41.9 ; Onychomycosis B35.1 ; BMI 40.0-44.9, adult Z68.41 and Alkaline phosphatase elevation R74.8 [facility] [id number] [place] [address] 90895- 3767 Sep, Mild intellectual disability F70 [facility] [id number] [place] [address] 32378- 4029 Sep, [facility] [id number] [place] [address] 85820- 0047 Sep, Alkaline phosphatase elevation R74.8 [facility] [id number] [place] [address] 28606- 1937 Sep, Alkaline phosphatase elevation R74.8 [facility] [id number] [place] [address] 12325- 4250 Sep, Mood disorder F39 ; Attention deficit hyperactivity disorder (ADHD), predominantly inattentive type F90.0 ; Irritable bowel syndrome with both constipation and diarrhea K58.2 and Seizures R56.9 [facility] [address] [address]- 7435 Sep, Mild intellectual disability F70 ; Depression, unspecified depression type F32.9 ; Anxiety F41.9 and BMI 40.0-44.9, adult Z68.41 [facility] [address] [address]- 1418 Sep, [facility] [id number] [place] [address] 69808- 4645 Sep, [facility] [id number] [place] [address] 41729- 3119 Sep, [facility] [id number] [place] [address] 44171- 2976 Sep, [facility] [id number] [place] [address] 71989- 9867 Sep, [facility] [id number] [place] [address] [phone] Aug, Encounter for dental examination and cleaning without abnormal findings Z01.20 [facility] [id number] [place] [address] [phone] Aug, Dental examination Z01.20 [facility] [id number] [place] [address] 25295- 2778 Aug, [facility] [id number] [place] [address] 73457- 8033 Aug, Depression, unspecified depression type F32.9 ; Mild intellectual disability F70 and Anxiety F41.9 [facility] [address] [address]- 3799 Aug, Mood disorder F39 ; Attention deficit hyperactivity disorder (ADHD), predominantly inattentive type F90.0 ; Irritable bowel syndrome with both constipation and diarrhea K58.2 and Seizures R56.9 [facility] [address] [address]- 9435 Aug, Depression, unspecified depression type F32.9 ; Mild intellectual disability F70 and Anxiety F41.9 [facility] [address] [id number] [address]- 2546 Aug, [facility] [id number] [place] [address] [phone] Jul, Dental examination Z01.20 and Dental caries K02.9 [facility] [id number] [place] [address] 07230- 2546 Jun, Unspecified mood [affective] disorder F39 and 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 [facility] [id number] [place] [address] [id number] May, Encounter for dental examination and cleaning without abnormal findings Z01.20 [facility] [id number] [place] [address] [id number] Mar, Dental examination Z01.20 [facility] [id number] [place] [address] [id number] Sep, Dental examination Z01.20 [facility] [address] [id number] [place] [address] [phone] January, Dental examination Z01.20 [facility] [id number] [place] [address] [id number] Dec, Encounter for dental examination Z01.20 [facility] [id number] [place] [address] [phone] Dec, Dental examination Z01.20 [facility] [id number] [place] [address] [phone] Nov, Dental examination Z01.20 [facility] [address] [id number] [place] [address] [id number] Jul, Encounter for dental examination Z01.20 and Dental examination Z01.20 [facility] [address] [id number] [place] [address] [id number] Apr, Dental examination V72.2 [facility] [address] [id number] [place] [id number] Mar, Dental examination V72.2 [facility] [id number] [address] 9721 January, [facility] [id number] [address]- 5711 January, [facility] [id number] 8952 January, [facility] [id number] 8592 January, [facility] [id number] [address]- 4601 Jul, IMMUNIZATIONS No Known Immunizations SOCIAL HISTORY [...]
--- OUTSIDE RECORDS SUMMARY | 2018-06-16 09:31 | XMS REPORT ---
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 Active 307482368 Problem Unspecified mood [affective] disorder F39 Active 99595866 Problem Irritable bowel syndrome with both constipation and diarrhea K58.2 Active 43193608 Problem Attention deficit hyperactivity disorder (ADHD), predominantly inattentive type F90.0 Active 80907308 Problem Postconcussion syndrome F07.81 Active 34884364 Problem Unsteady gait R26.81 Active 71891676 Problem Mild intellectual disability F70 Active 60211130 Problem Depression, unspecified depression type F32.9 Active 56906359 Problem 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 Active 68091876 Problem Anxiety F41.9 Active 19223148 ALLERGIES No Information ENCOUNTERS Encounter Location Date Diagnosis [id number] [place] [address] 41127- 2973 Mar, [id number] [place] [address] 37784- 3570 Mar, [id number] [place] [address] 95186- 3098 Mar, Seizures R56.9 and Folliculitis L73.9 [address] [place] [id number] [place] [address] 39299- 6049 Feb, [id number] [place] [address] 26094- 9335 Feb, Postconcussion syndrome F07.81 and Folliculitis L73.9 [facility] [address] [address]- 3603 Feb, Postconcussion syndrome F07.81 [facility] [place] [id number] [place] [address] 41487- 7631 Feb, [facility] [address] [place] [address] [phone] Feb, [facility] [id number] [place] [address] [phone] Feb, Dental caries extending into dentin K02.62 [facility] [place] [id number] [place] [address] 74021- 2178 January, [facility] [place] [id number] [place] [address] 96391- 6713 January, [facility] [place] [id number] [place] [address] 66662- 8304 January, Onychomycosis B35.1 [facility] [address] [place] [address] [id number] January, Dental caries extending into dentin K02.62 [facility] [place] [id number] [place] [address] 35585- 7136 Dec, [facility] [place] [id number] [place] [address] 12322- 7553 Dec, [facility] [place] [id number] [place] [address] 10855- 1122 Dec, [facility] [place] [id number] [place] [address] 18446- 4967 Dec, Mild intellectual disability F70 ; Depression, unspecified depression type F32.9 ; Anxiety F41.9 and BMI 45.0-49.9, adult Z68.42 [facility] [place] [id number] [place] [address] 93088- 4895 Dec, Folliculitis L73.9 [facility] [place] [id number] [place] [address] [phone]- 4913 Dec, Mild intellectual disability F70 ; Unsteady gait R26.81 and Generalized weakness R53.1 [facility] [id number] [place] [address] [id number] 15 Nov, 2017 [facility] [place] [id number] [place] [address] 13062- 7574 14 Nov, 2017 [facility] [place] [address] [id number] 4586 Nov, Folliculitis L73.9 ; Tinea corporis B35.4 and Onychomycosis B35.1 [facility] [id number] [place] [address] [id number] Oct, [facility] [place] [id number] [place] [address] 49157- 0615 Oct, Mood disorder F39 [facility] [place] [id number] [place] [address] 41743- 0727 Oct, [facility] [id number] [place] [address] 73241 -5433 Oct, Left hip pain M25.552 and Muscle spasm M62.838 [facility] [id number] [place] [address] [phone] Oct, [facility] [place] [id number] [place] [address] 66955- 9247 Oct, 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 ; Anxiety F41.9 ; Onychomycosis B35.1 ; BMI 40.0-44.9, adult Z68.41 and Alkaline phosphatase elevation R74.8 [facility] [place] [id number] [place] [address] 37635- 8989 Sep, Mild intellectual disability F70 [facility] [place] [address] 32167- 2380 Sep, [facility] [place] [id number] [place] [address] 20980- 9454 Sep, Alkaline phosphatase elevation R74.8 [facility] [place] [id number] [place] [address] 30816- 4743 Sep, Alkaline phosphatase elevation R74.8 [facility] [place] [id number] [place] [address] 63954- 1012 Sep, Mood disorder F39 ; Attention deficit hyperactivity disorder (ADHD), predominantly inattentive type F90.0 ; Irritable bowel syndrome with both constipation and diarrhea K58.2 and Seizures R56.9 [address] [address] 65084- 8480 Sep, Mild intellectual disability F70 ; Depression, unspecified depression type F32.9 ; Anxiety F41.9 and BMI 40.0-44.9, adult Z68.41 [facility] [place] [id number] [place] [address] 87788- 6022 Sep, [facility] [place] [id number] [place] [address] 80613- 1924 Sep, [facility] [place] [id number] [place] [address] 02220- 9133 Sep, [facility] [place] [id number] [place] [address] 65484- 3980 Sep, [facility] [place] [address] [place] [address] 99577- 8219 Sep, [facility] [id number] [place] [address] [id number] Aug, Encounter for dental examination and cleaning without abnormal findings Z01.20 [facility] [id number] [place] [address] [id number] Aug, Dental examination Z01.20 [facility] [place] [address] [place] [address] 69188- 6536 Aug, [facility] [place] [id number] [address]- 7750 14 Aug, 2017 Depression, unspecified depression type F32.9 ; Mild intellectual disability F70 and Anxiety F41.9 [place] [id number] [place] [phone]- 5532 08 Aug, 2017 Mood disorder F39 ; Attention deficit hyperactivity disorder (ADHD), predominantly inattentive type F90.0 ; Irritable bowel syndrome with both constipation and diarrhea K58.2 and Seizures R56.9 [place] [id number] [place] [address] 93281- 5195 05 Aug, 2017 Depression, unspecified depression type F32.9 ; Mild intellectual disability F70 and Anxiety F41.9 [place] [address] [place] [address] 24825- 9592 04 Aug, 2017 [facility] [id number] [place] [address] [phone] Jul, Dental examination Z01.20 and Dental caries K02.9 [place] [id number] [address]- 9993 Jun, Unspecified mood [affective] disorder F39 and 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 [facility] [id number] [place] [address] [id number] May, Encounter for dental examination and cleaning without abnormal findings Z01.20 [facility] [id number] [place] [address] [id number] Mar, Dental examination Z01.20 [facility] [id number] [place] [address] [id number] Sep, Dental examination Z01.20 [facility] [id number] [place] [address] [id number] January, Dental examination Z01.20 [facility] [id number] [place] [address] [id number] Dec, Encounter for dental examination Z01.20 [facility] [id number] [id number] Dec, Dental examination Z01.20 [facility] [address] [id number] Nov, Dental examination Z01.20 [facility] [address] [place] [address] [id number] Jul, Encounter for dental examination Z01.20 and Dental examination Z01.20 [facility] [address] [place] [address] [id number] Apr, Dental examination V72.2 [facility] [id number] [place] [address] [id number] Mar, Dental examination V72.2 [facility] [place] [id number] [place] [address] 25480- 2546 January, [facility] [place] [id number] [place] [address] 93646- 2546 January, [facility] [place] [id number] [place] [address] 21627- 2546 January, [facility] [place] [id number] [place] [address] 40596 2546 January, [facility] [place] [id number] [place] [address] 34169- 2546 Jul, IMMUNIZATIONS No Known Immunizations SOCIAL HISTORY Never Assessed REASON FOR VISIT Med refill PLAN OF CARE VITAL SIGNS MEDICATIONS [...]
--- OUTSIDE RECORDS SUMMARY | 2018-06-16 09:31 | XMS REPORT ---
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 Active 390132630 Problem Unspecified mood [affective] disorder F39 Active 13159519 Problem Irritable bowel syndrome with both constipation and diarrhea K58.2 Active 95699510 Problem Attention deficit hyperactivity disorder (ADHD), predominantly inattentive type F90.0 Active 85704717 Problem Postconcussion syndrome F07.81 Active 88859035 Problem Unsteady gait R26.81 Active 30050116 Problem Mild intellectual disability F70 Active 85611810 Problem Depression, unspecified depression type F32.9 Active 23028481 Problem 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 Active 79282155 Problem Anxiety F41.9 Active 57788780 ALLERGIES No Information ENCOUNTERS Encounter Location Date Diagnosis [place] [id number] [place] [address] 74805- 3391 Mar, [place] [address] [id number] [place] [address] 19411- 8865 Mar, [place] [address] [place] [address] 70677- 4175 Mar, Seizures R56.9 and Folliculitis L73.9 [place] [id number] [place] [address] 45650- 6719 Feb, [place] [id number] [place] [address] 29303- 0832 Feb, Postconcussion syndrome F07.81 and Folliculitis L73.9 [facility] [address] [address] 8096 Feb, Postconcussion syndrome F07.81 [facility] [address] [place] [address] 62681- 9538 Feb, [facility] [address] [place] [address] [phone] Feb, [facility] [id number] [place] [address] [id number] Feb, Dental caries extending into dentin K02.62 [facility] [id number] [place] [address] 67335- 2666 January, [facility] [id number] [place] [address] 95221- 6967 January, [facility] [id number] [place] [address] 44814- 4466 January, Onychomycosis B35.1 [facility] [address] [place] [address] [phone] January, Dental caries extending into dentin K02.62 [facility] [id number] [place] [address] 18193- 6520 Dec, [facility] [id number] [place] [address] 20627- 6325 Dec, [facility] [id number] [place] [address] 72400- 9476 Dec, [facility] [address] [place] [address] 32785- 5887 Dec, Mild intellectual disability F70 ; Depression, unspecified depression type F32.9 ; Anxiety F41.9 and BMI 45.0-49.9, adult Z68.42 [facility] [address] [place] [address] 71223- 6691 Dec, Folliculitis L73.9 [facility] [id number] [place] [address] [phone] Dec, Mild intellectual disability F70 ; Unsteady gait R26.81 and Generalized weakness R53.1 [facility] [id number] [place] [address] [phone] Nov, 2017 [facility] [id number] [place] [address] 24956- 1422 14 Nov, 2017 [facility] [address] [phone] Nov, Folliculitis L73.9 ; Tinea corporis B35.4 and Onychomycosis B35.1 [facility] [id number] [place] [address] [phone] Oct, [facility] [id number] [place] [address] 66572- 5430 Oct, Mood disorder F39 [facility] [id number] [place] [address] 54181- 9481 Oct, [facility] [id number] [place] [address] 71433 -8250 Oct, Left hip pain M25.552 and Muscle spasm M62.838 [facility] [id number] [place] [address] [phone] Oct, [facility] [id number] [place] [address] 56812- 1877 Oct, 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 ; Anxiety F41.9 ; Onychomycosis B35.1 ; BMI 40.0-44.9, adult Z68.41 and Alkaline phosphatase elevation R74.8 [facility] [id number] [place] [address] 85345- 0481 Sep, Mild intellectual disability F70 [facility] [address] 30152- 4256 Sep, [facility] [id number] [place] [address] 77422- 3763 Sep, Alkaline phosphatase elevation R74.8 [facility] [id number] [place] [address] 62366- 5260 Sep, Alkaline phosphatase elevation R74.8 [facility] [id number] [place] [address] 49805- 3107 Sep, Mood disorder F39 ; Attention deficit hyperactivity disorder (ADHD), predominantly inattentive type F90.0 ; Irritable bowel syndrome with both constipation and diarrhea K58.2 and Seizures R56.9 [place] [address] 87229- 8696 Sep, Mild intellectual disability F70 ; Depression, unspecified depression type F32.9 ; Anxiety F41.9 and BMI 40.0-44.9, adult Z68.41 [facility] [id number] [place] [address] 16382- 9839 Sep, [facility] [id number] [place] [address] 14901- 5088 Sep, [facility] [id number] [place] [address] 89140- 3454 Sep, [facility] [address] [place] [address] 30624- 8234 Sep, [facility] [address] [place] [address] 40327- 6981 Sep, [facility] [id number] [place] [address] [phone] Aug, Encounter for dental examination and cleaning without abnormal findings Z01.20 [facility] [id number] [place] [address] [phone] Aug, Dental examination Z01.20 [facility] [address] [place] [address] 60931- 5336 Aug, [facility] [id number] [address]- 1340 14 Aug, 2017 Depression, unspecified depression type F32.9 ; Mild intellectual disability F70 and Anxiety F41.9 [place] [address] [place] [phone] 08 Aug, 2017 Mood disorder F39 ; Attention deficit hyperactivity disorder (ADHD), predominantly inattentive type F90.0 ; Irritable bowel syndrome with both constipation and diarrhea K58.2 and Seizures R56.9 [place] [id number] [place] [address] 99654- 2372 05 Aug, 2017 Depression, unspecified depression type F32.9 ; Mild intellectual disability F70 and Anxiety F41.9 [place] [address] [place] [address] 69722- 8012 04 Aug, 2017 [facility] [id number] [place] [address] [phone] Jul, Dental examination Z01.20 and Dental caries K02.9 [place] [id number] [address]- 3034 Jun, Unspecified mood [affective] disorder F39 and 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 [facility] [id number] [place] [address] [phone] May, Encounter for dental examination and cleaning without abnormal findings Z01.20 [facility] [id number] [place] [address] [phone] Mar, Dental examination Z01.20 [facility] [id number] [place] [address] [id number] Sep, Dental examination Z01.20 [facility] [id number] [place] [address] [phone] January, Dental examination Z01.20 [facility] [id number] [place] [address] [phone] Dec, Encounter for dental examination Z01.20 [facility] [id number] [phone] Dec, Dental examination Z01.20 [facility] [address] [phone] Nov, Dental examination Z01.20 [facility] [address] [place] [address] [id number] Jul, Encounter for dental examination Z01.20 and Dental examination Z01.20 [facility] [address] [phone] Apr, Dental examination V72.2 [facility] [id number] [place] [address] [phone] Mar, Dental examination V72.2 [facility] [id number] [place] [address] 66684- 0076 January, [facility] [id number] [place] [address] 625000- 4818 January, [facility] [id number] [place] [address] 08549- 4874 January, [facility] [id number] [place] [address] 314867- 4387 January, [facility] [address] [place] [address] 270536- 4818 Jul, IMMUNIZATIONS No Known Immunizations SOCIAL HISTORY Never Assessed REASON FOR VISIT Letter for Powered Chair PLAN OF CARE VITAL SIGNS MEDICATIONS Unknown [...]
--- OUTSIDE RECORDS SUMMARY | 2018-06-16 09:31 | XMS REPORT ---
Author Author YU SAMUEL Organization [facility] Address [address] [place] [address] Care Team Providers Care Drafter (Cad) Electronic Name Role Phone YU SAMUEL Unavailable PROBLEMS Type Condition ICD9-CM Code YSD66-[place] Code Onset Dates Condition Status SNOMED Code Problem Attention deficit hyperactivity disorder (ADHD), predominantly inattentive type F90.0 Active 89566546 Problem Unspecified mood [affective] disorder F39 Active 05822199 Problem Mood disorder F39 Active 45211341 Problem Irritable bowel syndrome with both constipation and diarrhea K58.2 Active 07659418 Problem Unsteady gait R26.81 Active 09410064 Problem 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 Active 28203647 Problem Depression, unspecified depression type F32.9 Active 65051759 Problem 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 Active 309741230 Problem Anxiety F41.9 Active 81875525 Problem Mild intellectual disability F70 Active 08879849 ALLERGIES No Information ENCOUNTERS Encounter Location Date Diagnosis [facility] [id number] [place] [address] 95281- 8040 Mar, [facility] [id number] [place] [address] 02898- 1402 Mar, [facility] [id number] [place] [address] 89655- 1770 Feb, [facility] [id number] [place] [address] 35619- 9646 Feb, [facility] [id number] [place] [address] [phone] Feb, [facility] [id number] [place] [address] [phone] Feb, Dental caries extending into dentin K02.62 [facility] [id number] [place] [address] 81410- 5336 January, [facility] [id number] [place] [address] 75998- 4163 January, [facility] [id number] [place] [address] 14995- 2835 January, Onychomycosis B35.1 [facility] [address] [id number] January, Dental caries extending into dentin K02.62 [facility] [id number] [place] [address] 63617- 0881 Dec, [facility] [id number] [place] [address] 98211- 9745 Dec, [facility] [id number] [place] [address] 30645- 8023 Dec, [facility] [id number] [place] [address] 05762- 8837 Dec, Mild intellectual disability F70 ; Depression, unspecified depression type F32.9 ; Anxiety F41.9 and BMI 45.0-49.9, adult Z68.42 [facility] [id number] [place] [address] 96356- 9767 Dec, Folliculitis L73.9 [facility] [id number] [place] [address] 49408- 3339 Dec, Mild intellectual disability F70 ; Unsteady gait R26.81 and Generalized weakness R53.1 [facility] [address] [place] [address] [phone] Nov, [facility] [address] 39239- 6074 Nov, [facility] [id number] [place] [address] 22564- 3834 Nov, Folliculitis L73.9 ; Tinea corporis B35.4 and Onychomycosis B35.1 [facility] [address] [phone] Oct, [facility] [id number] [place] [address]- 7895 Oct, Mood disorder F39 [facility] [address] [place] [address] 16918- 5411 Oct, [facility] [address] [place] [address] 97749 -4040 Oct, Left hip pain M25.552 and Muscle spasm M62.838 [facility] [id number] [place] [address] [phone] Oct, [facility] [address] [place] [address] 61179- 2511 Oct, 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 ; Anxiety F41.9 ; Onychomycosis B35.1 ; BMI 40.0-44.9, adult Z68.41 and Alkaline phosphatase elevation R74.8 [facility] [id number] [place] [address] 76985- 0142 Sep, Mild intellectual disability F70 [facility] [id number] [place] [address] 45180- 7536 Sep, [facility] [id number] [place] [address] 96005- 9486 Sep, Alkaline phosphatase elevation R74.8 [facility] [address] [place] [address] 48927- 1655 Sep, Alkaline phosphatase elevation R74.8 [facility] [id number] [place] [address] 39400- 5305 Sep, Mood disorder F39 ; Attention deficit hyperactivity disorder (ADHD), predominantly inattentive type F90.0 ; Irritable bowel syndrome with both constipation and diarrhea K58.2 and Seizures R56.9 [facility] [address], [place] [address]- 3733 Sep, Mild intellectual disability F70 ; Depression, unspecified depression type F32.9 ; Anxiety F41.9 and BMI 40.0-44.9, adult Z68.41 [facility] [address], [place] [address]- 9298 Sep, [facility] [id number] [place] [address] 17800- 8078 Sep, [facility] [id number] [place] [address] 02043- 9036 Sep, [facility] [id number] [place] [address] 43629- 2555 Sep, [facility] [id number] [place] [address] 61752- 9537 Sep, [facility] [id number] [place] [address] [id number] Aug, Encounter for dental examination and cleaning without abnormal findings Z01.20 [facility] [id number] [place] [address] [id number] Aug, Dental examination Z01.20 [facility] [address] [place] [address] 86014- 5147 Aug, [facility] [id number] [place] [address] 56381- 7642 Aug, Depression, unspecified depression type F32.9 ; Mild intellectual disability F70 and Anxiety F41.9 [facility] [address] [address]- 1671 Aug, Mood disorder F39 ; Attention deficit hyperactivity disorder (ADHD), predominantly inattentive type F90.0 ; Irritable bowel syndrome with both constipation and diarrhea K58.2 and Seizures R56.9 [facility] [address] [address]- 2453 Aug, Depression, unspecified depression type F32.9 ; Mild intellectual disability F70 and Anxiety F41.9 [facility] [address] [id number] [address]- 2546 Aug, [facility] [id number] [place] [address] [id number] Jul, Dental examination Z01.20 and Dental caries K02.9 [facility] [id number] [place] [address] 88160- 2546 Jun, Unspecified mood [affective] disorder F39 and 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 [facility] [id number] [place] [address] [id number] May, Encounter for dental examination and cleaning without abnormal findings Z01.20 [facility] [id number] [place] [address] [id number] Mar, Dental examination Z01.20 [facility] [id number] [place] [address] [id number] Sep, Dental examination Z01.20 [facility] [id number] [place] [address] [id number] January, Dental examination Z01.20 [facility] [id number] [place] [address] [id number] Dec, Encounter for dental examination Z01.20 [facility] [id number] [place] [address] [id number] Dec, Dental examination Z01.20 [facility] [id number] [place] [address] [id number] Nov, Dental examination Z01.20 [facility] [id number] [place] [address] [id number] Jul, Encounter for dental examination Z01.20 and Dental examination Z01.20 [facility] [id number] [place] [address] [id number] Apr, Dental examination V72.2 [facility] [address] [id number] [phone] Mar, Dental examination V72.2 [facility] [id number] [address]- 0971 January, [facility] [id number]- 8077 January, [facility] [id number]- 4163 January, [facility] [id number]- 2370 January, [facility] [id number] [address]- 3010 Jul, IMMUNIZATIONS No Known Immunizations SOCIAL HISTORY [...]
--- OUTSIDE RECORDS SUMMARY | 2018-06-16 09:32 | XMS REPORT ---
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 Active 538190117 Problem Unspecified mood [affective] disorder F39 Active 04778556 Problem Irritable bowel syndrome with both constipation and diarrhea K58.2 Active 20939508 Problem Attention deficit hyperactivity disorder (ADHD), predominantly inattentive type F90.0 Active 27420449 Problem Postconcussion syndrome F07.81 Active 26767415 Problem Unsteady gait R26.81 Active 78684874 Problem Mild intellectual disability F70 Active 44952722 Problem Depression, unspecified depression type F32.9 Active 69206150 Problem 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 Active 65630622 Problem Anxiety F41.9 Active 48310221 ALLERGIES No Information ENCOUNTERS Encounter Location Date Diagnosis [facility] [address] [address] Mar, [facility] [id number] [place] [address] 57126- 6141 Mar, [facility] [address] [address] Feb, [facility] [id number] [place] [address] 95408- 5490 Feb, Postconcussion syndrome F07.81 and Folliculitis L73.9 [facility] [id number] [place] [address] 76787- 2498 Feb, Postconcussion syndrome F07.81 [facility] [id number] [place] [address] 01738- 2264 Feb, [facility] [id number] [place] [address] [id number] Feb, [facility] [id number] [place] [address] [id number] Feb, Dental caries extending into dentin K02.62 [facility] [id number] [place] [address] 12103- 1425 January, [facility] [id number] [place] [address] 53270- 3933 January, [facility] [id number] [place] [address] 95713- 0724 January, Onychomycosis B35.1 [facility] [id number] [place] [address] [id number] January, Dental caries extending into dentin K02.62 [facility] [id number] [place] [address] 51477- 8099 Dec, [facility] [id number] [place] [address] 93063- 5045 Dec, [facility] [id number] [place] [address] 59281- 2800 Dec, [facility] [id number] [place] [address] 71860- 5329 Dec, Mild intellectual disability F70 ; Depression, unspecified depression type F32.9 ; Anxiety F41.9 and BMI 45.0-49.9, adult Z68.42 [facility] [id number] [place] [address] 78345- 9397 Dec, Folliculitis L73.9 [facility] [id number] [place] [address] 35720- 5428 Dec, Mild intellectual disability F70 ; Unsteady gait R26.81 and Generalized weakness R53.1 [facility] [id number] [place] [address] [id number] 15 Nov, 2017 [facility] [address] 91943- 5438 14 Nov, 2017 [facility] [address] 12148- 8919 Nov, Folliculitis L73.9 ; Tinea corporis B35.4 and Onychomycosis B35.1 [facility] [id number] [place] [address] [id number] Oct, [facility] [address] 83855- 4162 Oct, Mood disorder F39 [facility] [address] 60724- 7750 Oct, [facility] [id number] [place] [address] 92703 -8357 Oct, Left hip pain M25.552 and Muscle spasm M62.838 [facility] [id number] [place] [address] [id number] Oct, [facility] [id number] [place] [address] 32327- 2198 Oct, 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 ; Anxiety F41.9 ; Onychomycosis B35.1 ; BMI 40.0-44.9, adult Z68.41 and Alkaline phosphatase elevation R74.8 [facility] [id number] [place] [address] 53257- 1173 Sep, Mild intellectual disability F70 [facility] [address] 38204- 2956 Sep, [facility] [id number] [place] [address] 86570- 1649 Sep, Alkaline phosphatase elevation R74.8 [facility] [id number] [place] [address] 92069- 5311 Sep, Alkaline phosphatase elevation R74.8 [facility] [id number] [place] [address] 07059- 4081 Sep, Mood disorder F39 ; Attention deficit hyperactivity disorder (ADHD), predominantly inattentive type F90.0 ; Irritable bowel syndrome with both constipation and diarrhea K58.2 and Seizures R56.9 [facility] [id number] [place] [address] 81519- 1285 Sep, Mild intellectual disability F70 ; Depression, unspecified depression type F32.9 ; Anxiety F41.9 and BMI 40.0-44.9, adult Z68.41 [facility] [id number] [place] [address] 77407- 2247 Sep, [facility] [address] 75024- 2996 Sep, [facility] [id number] [place] [address] 41548- 6060 Sep, [facility] [address] 53637- 6801 Sep, [facility] [id number] [place] [address] 44171- 9521 Sep, [facility] [address] [id number] Aug, Encounter for dental examination and cleaning without abnormal findings Z01.20 [facility] [id number] [place] [address] [id number] Aug, Dental examination Z01.20 [facility] [address] 70034- 3864 14 Aug, 2017 [facility] [id number] [place] [address] 55317- 9601 Aug, Depression, unspecified depression type F32.9 ; Mild intellectual disability F70 and Anxiety F41.9 [facility] [address] [address] 08 Aug, 2017 Mood disorder F39 ; Attention deficit hyperactivity disorder (ADHD), predominantly inattentive type F90.0 ; Irritable bowel syndrome with both constipation and diarrhea K58.2 and Seizures R56.9 [facility] [id number] [place] [address] 67943- 4632 Aug, Depression, unspecified depression type F32.9 ; Mild intellectual disability F70 and Anxiety F41.9 [facility] [id number] [place] [address] 73617- 4078 Aug, [facility] [id number] [place] [address] [id number] Jul, Dental examination Z01.20 and Dental caries K02.9 [facility] [id number] [place] [address] 76480- 1556 Jun, Unspecified mood [affective] disorder F39 and 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 [facility] [id number] [place] [address] [id number] May, Encounter for dental examination and cleaning without abnormal findings Z01.20 [facility] [id number] [place] [address] [id number] Mar, Dental examination Z01.20 [facility] [id number] [place] [address] [id number] Sep, Dental examination Z01.20 [facility] [id number] [place] [address] [id number] January, Dental examination Z01.20 [facility] [id number] [place] [address] [id number] Dec, Encounter for dental examination Z01.20 [facility] [id number] [place] [address] [id number] Dec, Dental examination Z01.20 [facility] [address] [id number] [id number] Nov, Dental examination Z01.20 [facility] [address] [id number] Jul, Encounter for dental examination Z01.20 and Dental examination Z01.20 [facility] [address] [id number] Apr, Dental examination V72.2 [facility] [address] [place] [address] [id number] Mar, Dental examination V72.2 [facility] [id number] [place] [address] 42089- 2546 January, [facility] [id number] [place] [address] 56276- 0826 January, [facility] [id number] [place] [address] 80429- 9006 January, [facility] [id number] [place] [address] 86831 2546 January, [facility] [address] [place] [address] 20309- 9682 Jul, IMMUNIZATIONS No Known Immunizations SOCIAL HISTORY [...]
--- OUTSIDE RECORDS SUMMARY | 2018-06-16 09:32 | XMS REPORT ---
Author Author YU SAMUEL [facility] Address [address] [place] [address] Care Team Providers Care Entry Level Finance Name Role Phone YU SAMUEL Unavailable PROBLEMS Type Condition ICD9-CM Code PJJ07-AU Code Onset Dates Condition Status SNOMED Code Problem Mood disorder F39 Active 15053252 Problem 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 Active 646416528 Problem Unspecified mood [affective] disorder F39 Active 07688929 Problem Irritable bowel syndrome with both constipation and diarrhea K58.2 Active 08048227 Problem Attention deficit hyperactivity disorder (ADHD), predominantly inattentive type F90.0 Active 13565470 Problem Postconcussion syndrome F07.81 Active 54988699 Problem Unsteady gait R26.81 Active 79520893 Problem Mild intellectual disability F70 Active 33433675 Problem Depression, unspecified depression type F32.9 Active 78648720 Problem 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 Active 58844644 Problem Anxiety F41.9 Active 12231961 ALLERGIES Substance Reaction Event Type Date Status Zithromax Unknown Drug Allergy Oct, Active Promethazine HCl n/v Drug Allergy Oct, Active Macrobid n/v Drug Allergy Oct, Active Tetracycline HCl Unknown Drug Allergy Oct, Active Sulfamethoxazole dizziness Drug Allergy Oct, Active [place] Carbonate Unknown Drug Allergy Oct, Active Levaquin n/v Drug Allergy Oct, Active Keflex n/v Drug Allergy Oct, Active Estradiol Unknown Drug Allergy Oct, Active Depakote n/v Drug Allergy Oct, Active Codeine Sulfate Unknown Drug Allergy Oct, Active Codeine Phosphate n/v Drug Allergy Oct, Active Clindamycin HCl Unknown Drug Allergy Oct, Active Amoxicillin anaphylaxis and n/v Drug Allergy Oct, Active latex Unknown Non Drug Allergy Oct, Active ENCOUNTERS Encounter Location Date Diagnosis [facility] [place] [address] [address]- [address]78 Mar, [facility] [place] [id number] [place] [address] 89507- 0100 Mar, [facility] [place] [address] [place] [address] 28521- 7502 Feb, [facility] [place] [id number] [place] [address] 22887- 6618 Feb, Postconcussion syndrome F07.81 and Folliculitis L73.9 [facility] [place] [id number] [place] [address] 26639- 5252 Feb, Postconcussion syndrome F07.81 [facility] [place] [id number] [place] [address] 70034- 1004 Feb, [facility] [id number] [place] [address] [id number] Feb, [facility] [id number] [place] [address] [id number] Feb, Dental caries extending into dentin K02.62 [facility] [place] [id number] [place] [address] 55823- 6457 January, [facility] [place] [address] [place] [address] 44158- 1452 January, [facility] [place] [address] [place] [address] 18256- 9751 January, Onychomycosis B35.1 [facility] [id number] [place] [address] [id number] January, Dental caries extending into dentin K02.62 [facility] [place] [address] [place] [address] 46674- 3040 Dec, [facility] [place] [id number] [place] [address] 27283- 3915 Dec, [facility] [place] [address] 32471- 6113 Dec, [facility] [place] [address] 88492- 0017 Dec, Mild intellectual disability F70 ; Depression, unspecified depression type F32.9 ; Anxiety F41.9 and BMI 45.0-49.9, adult Z68.42 [facility] [place] [address] 17960- 2450 Dec, Folliculitis L73.9 [place] [address] 76622- 9694 Dec, Mild intellectual disability F70 ; Unsteady gait R26.81 and Generalized weakness R53.1 [facility] [address] [id number] Nov, [facility] [place] [address] 03545- 3512 Nov, [facility] [place] [address] 67309- 6995 Nov, Folliculitis L73.9 ; Tinea corporis B35.4 and Onychomycosis B35.1 [facility] [address] [id number] Oct, [facility] [place] [address] 36256- 5301 Oct, Mood disorder F39 [facility] [place] [address] 67345- 6649 Oct, [facility] [address] 89354 -4002 Oct, Left hip pain M25.552 and Muscle spasm M62.838 [facility] [address] [id number] Oct, [place] [id number] [place] [address] 25256- 4496 Oct, 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 ; Anxiety F41.9 ; Onychomycosis B35.1 ; BMI 40.0-44.9, adult Z68.41 and Alkaline phosphatase elevation R74.8 [place] [id number] [place] [address] 41681- 2397 Sep, Mild intellectual disability F70 [place] [id number] [place] [address] 56314- 0986 Sep, [place] [address] 80787- 0223 Sep, Alkaline phosphatase elevation R74.8 [place] [id number] [place] [address] 64336- 6532 Sep, Alkaline phosphatase elevation R74.8 [place] [id number] [place] [address] 43361- 7052 Sep, Mood disorder F39 ; Attention deficit hyperactivity disorder (ADHD), predominantly inattentive type F90.0 ; Irritable bowel syndrome with both constipation and diarrhea K58.2 and Seizures R56.9 [place] [id number] [place] [address] 52497- 4959 Sep, Mild intellectual disability F70 ; Depression, unspecified depression type F32.9 ; Anxiety F41.9 and BMI 40.0-44.9, adult Z68.41 [place] [address] [place] [address] 17932- 1184 Sep, [place] [id number] [place] [address] 49938- 3182 Sep, [place] [id number] [place] [address] 98486- 9205 Sep, [place] [id number] [place] [address] 63820- 4371 Sep, [place] [address] [address]- 7358 Sep, [facility] [id number] [place] [address] [id number] Aug, Encounter for dental examination and cleaning without abnormal findings Z01.20 [facility] [id number] [place] [address] [id number] Aug, Dental examination Z01.20 [facility] [place] [id number] [place] [address] 80173- 8803 Aug, [facility] [place] [id number] [place] [address] 88533- 1639 Aug, Depression, unspecified depression type F32.9 ; Mild intellectual disability F70 and Anxiety F41.9 [place] [id number] [place] [address] 12543- 8280 08 Aug, 2017 Mood disorder F39 ; Attention deficit hyperactivity disorder (ADHD), predominantly inattentive type F90.0 ; Irritable bowel syndrome with both constipation and diarrhea K58.2 and Seizures R56.9 [facility] [place] [id number] [place] [address] 27843- 7593 05 Aug, 2017 Depression, unspecified depression type F32.9 ; Mild intellectual disability F70 and Anxiety F41.9 [facility] [place] [id number] [place] [address] 00531- 0611 Aug, [facility] [id number] [place] [address] [phone] Jul, Dental examination Z01.20 and Dental caries K02.9 [facility] [place] [id number] [place] [id number]777 Jun, Unspecified mood [affective] disorder F39 and 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 [facility] [address] [place] [address] [id number] 13 May, 2017 Encounter for dental examination and cleaning without abnormal findings Z01.20 [facility] [address] [id number] [id number] Mar, Dental examination Z01.20 [facility] [address] [id number] [place] [id number] Sep, Dental examination Z01.20 [facility] [address] [id number] [place] [id number] January, Dental examination Z01.20 [facility] [address] [id number] [place]ENTER[place] [id number] Dec, Encounter for dental examination Z01.20 [facility] [address] [id number] [place]ENTER[place] [id number] Dec, Dental examination Z01.20 [facility] [address] [id number] [place] [id number] Nov, Dental examination Z01.20 [facility] [address] [id number] [place] [id number] Jul, Encounter for dental examination Z01.20 and Dental examination Z01.20 [facility] [address] [id number] [place] [id number] Apr, Dental examination V72.2 [facility] [address] [id number] [place] [id number] Mar, Dental examination V72.2 [facility] [place] [address] [id number] [address]- 2546 January, [facility] [place] [id number] [address] 2546 January, [facility] [place] [address] [facility] [id number] [place] [address]- 5976 January, [facility] [place] [id number] [address] 2546 January, [facility] [place] [id number] [address]- 5306 Jul, IMMUNIZATIONS No Known Immunizations SOCIAL HISTORY Never Assessed REASON FOR VISIT right big toe pain, PT says its been causing her problems since 2007-Gu[place] MARCIAL PLAN OF CARE VITAL SIGNS Height 59 in 2017-10-28 Weight 221.3 lbs 2017-10-28 Temperature 98.5 degrees Fahrenheit 2017-10-28 Heart Rate 82 bpm 2017-10-28 Respiratory Rate 18 2017-10-28 BMI 44.69 kg/m2 2017-10-28 Blood pressure systolic 114 mmHg 2017-10-28 Blood pressure diastolic 80 mmHg 2017-10-28 MEDICATIONS Medication Instructions Dosage Frequency Start Date End Date Duration Status Phenytoin 100 mg 3 tablets 12h Active Dicyclomine HCl 20 mg Orally Four times a day 2 capsules 6h Active Protonix 40 mg Orally Once a day 1 tablet 24h Active Meclizine HCl 25 MG Orally TID 1 tablet 8h Active Calcium 600-400 MG-UNIT Orally Once a day 24h Active Montelukast Sodium 10 mg Orally Once a day 1 tablet 24h Active Verapamil HCl ER 120 MG Orally Once a day 1 tablet 24h Active Estradiol 0.5 MG Orally Once a day 1 tablet 24h Active Diflucan 100 MG Orally Once a day 1 tablet 24h Active One-A-Day Bone Strength Active Amitriptyline HCl 50 MG Orally at night 1 tablet 30 days Active Strattera 100 MG Orally Once a day 1 capsule 24h Active Sudafed 30 MG Orally every 6 hrs 1 tablet as needed 6h Sep, 07 days Not-Taking Loratadine 10 mg Orally Once a day 1 tablet 24h Active Topiramate 100 mg Orally Twice a day 1 tablet 12h 30 days Active Elmiron 100 mg Orally Three times a day 1 capsule on an empty stomach 8h Active Simvastatin 20 mg Orally Once a day 1 tablet 24h Active Terbinafine HCl 1 % Externally Twice a day 1 application to affected area 12h Oct, Active VESIcare 5 mg Orally Once a day 1 tablet 24h Active Aspirin 81 MG 1 tablet Active Lamotrigine 100 mg Orally Twice a day 1 tablet 12h 30 days Active RESULTS Name Result Date Reference Range GGT 2017-10-28 GGT 303 3-55 PROCEDURES Procedure Date Ordered Result Body Site [facility] VISIT ESTABLISHED PATIENT Oct 28, 2017 VENIPUNCT, ROUTINE* Oct 28, 2017 [facility] Oct [facility], 2017 INSTRUCTIONS MEDICATIONS ADMINISTERED No Known Medications [...]
--- OUTSIDE RECORDS SUMMARY | 2018-06-16 09:32 | XMS REPORT ---
Author Author LISA BEE Organization [facility] Address [address] [place] [address] Care Team Providers Care Marketing Strategy Lead Name Role Phone LISA BEE Unavailable PROBLEMS Type Condition ICD9-CM Code [id number] Code Onset Dates Condition Status SNOMED Code Problem Attention deficit hyperactivity disorder (ADHD), predominantly inattentive type F90.0 Active 01863413 Problem Unspecified mood [affective] disorder F39 Active 56448126 Problem Mood disorder F39 Active 26637418 Problem Irritable bowel syndrome with both constipation and diarrhea K58.2 Active 77698763 Problem Unsteady gait R26.81 Active 43690829 Problem 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 Active 04892971 Problem Depression, unspecified depression type F32.9 Active 10231720 Problem 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 Active 857748262 Problem Anxiety F41.9 Active 23165644 Problem Mild intellectual disability F70 Active 00673125 ALLERGIES No Information ENCOUNTERS Encounter Location Date Diagnosis [facility] [id number] [place] [address] 11110- 4866 Mar, [facility] [address] [place] [address] [id number] Feb, [facility] [id number] [place] [address] 55232- 5258 January, [facility] [id number] [place] [address] 29214- 0438 January, Onychomycosis B35.1 [facility] [address] [id number] January, Dental caries extending into dentin K02.62 [facility] [address] 10255- 3758 Dec, [facility] [id number] [place] [address] 59038- 8983 Dec, [facility] [id number] [place] [address] 10119- 6184 Dec, [facility] [id number] [place] [address] 36260- 8918 Dec, Mild intellectual disability F70 ; Depression, unspecified depression type F32.9 ; Anxiety F41.9 and BMI 45.0-49.9, adult Z68.42 [facility] [id number] [place] [address] 56649- 4476 Dec, Folliculitis L73.9 [facility] [id number] [place] [address] 79806- 9948 Dec, Mild intellectual disability F70 ; Unsteady gait R26.81 and Generalized weakness R53.1 [facility] [id number] [place] [address] [id number] 15 Nov, 2017 [facility] [id number] [place] [address] 73753- 2607 Nov, [facility] [id number] [place] [address] 11470- 6798 Nov, Folliculitis L73.9 ; Tinea corporis B35.4 and Onychomycosis B35.1 [facility] [id number] [place] [address] [id number] Oct, [facility] [id number] [place] [address] 78198- 7588 Oct, Mood disorder F39 [facility] [id number] [place] [address] 59349- 2691 Oct, [facility] [id number] [place] [address] 34526 -4891 Oct, Left hip pain M25.552 and Muscle spasm M62.838 [facility] [address] [id number] 12 Oct, 2017 [facility] [id number] [place] [address] 99595- 5688 Oct, 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 ; Anxiety F41.9 ; Onychomycosis B35.1 ; BMI 40.0-44.9, adult Z68.41 and Alkaline phosphatase elevation R74.8 [facility] [id number] [place] [address] 14504- 6801 Sep, Mild intellectual disability F70 [facility] [id number] [place] [address] 65343- 5308 Sep, [facility] [id number] [place] [address] 99657- 4334 Sep, Alkaline phosphatase elevation R74.8 [facility] [id number] [place] [address] 89552- 9972 Sep, Alkaline phosphatase elevation R74.8 [facility] [address] [place] [address] 24834- 9176 Sep, Mood disorder F39 ; Attention deficit hyperactivity disorder (ADHD), predominantly inattentive type F90.0 ; Irritable bowel syndrome with both constipation and diarrhea K58.2 and Seizures R56.9 [facility] [address] [place] [address] 00408- 5607 Sep, Mild intellectual disability F70 ; Depression, unspecified depression type F32.9 ; Anxiety F41.9 and BMI 40.0-44.9, adult Z68.41 [facility] [id number] [place] [address] 00949- 3314 Sep, [facility] [id number] [place] [address] 90854- 9647 Sep, [facility] [id number] [place] [address] 04958- 7504 Sep, [facility] [address] [address]- 9833 Sep, [facility] [id number] [place] [address]86 Sep, [facility] [id number] [place] [address] [id number] Aug, Encounter for dental examination and cleaning without abnormal findings Z01.20 [facility] [id number] [place] [address] [id number] Aug, Dental examination Z01.20 [facility] [id number] [place] [address] 12919- 1054 Aug, [facility] [id number] [place] [address] 82938- 9849 Aug, Depression, unspecified depression type F32.9 ; Mild intellectual disability F70 and Anxiety F41.9 [facility] [id number] [place] [address] 42944- 9946 08 Aug, 2017 Mood disorder F39 ; Attention deficit hyperactivity disorder (ADHD), predominantly inattentive type F90.0 ; Irritable bowel syndrome with both constipation and diarrhea K58.2 and Seizures R56.9 [facility] [address] [place] [address] 24639- 8303 Aug, Depression, unspecified depression type F32.9 ; Mild intellectual disability F70 and Anxiety F41.9 [facility] [id number] [place] [address] 67086- 4795 Aug, [facility] [address] [place] [address] [phone] Jul, Dental examination Z01.20 and Dental caries K02.9 [facility] [id number] [place] [address]- [address]36 Jun, Unspecified mood [affective] disorder F39 and 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 [facility] [id number] [phone] May, Encounter for dental examination and cleaning without abnormal findings Z01.20 [facility] [address] [id number] [id number] Mar, Dental examination Z01.20 [facility] [address] [id number] [phone] Sep, Dental examination Z01.20 [facility] [address] [id number] [id number] January, Dental examination Z01.20 [facility] [id number] [place] [address] [id number] Dec, Encounter for dental examination Z01.20 [facility] [address] [id number] [id number] Dec, Dental examination Z01.20 [facility] [address] [id number] [phone] Nov, Dental examination Z01.20 [facility] [address] [id number] [phone] Jul, Encounter for dental examination Z01.20 and Dental examination Z01.20 [facility] [address] [id number] [phone] Apr, Dental examination V72.2 [facility] [address] [id number] [id number] Mar, Dental examination V72.2 [facility] [address] [id number], [place] [address]- 2546 January, [facility] [address] [id number], [place] [address]- 2546 January, [facility] [id number] [address] 2546 January, [facility] [id number] [address]- 2546 January, [facility] [address] [facility] [id number] [place] [address]- [address] 17 Jul, 2009 IMMUNIZATIONS No Known Immunizations SOCIAL HISTORY Never Assessed REASON FOR VISIT Mood disturbance. PLAN OF CARE VITAL SIGNS MEDICATIONS Medication Instructions Dosage Frequency Start Date End Date Duration Status Strattera Active Strattera Active RESULTS No Results PROCEDURES Procedure Date Ordered Result Body Site Psych diagnostic evaluation, established patient Jul 26, 2017 INSTRUCTIONS MEDICATIONS ADMINISTERED No Known Medications [...]
--- OUTSIDE RECORDS SUMMARY | 2018-06-16 09:32 | XMS REPORT ---
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 Name Role Phone JAMIE CHEN Unavailable PROBLEMS Type Condition ICD9-CM Code LXN02-XC Code Onset Dates Condition Status SNOMED Code Problem Attention deficit hyperactivity disorder (ADHD), predominantly inattentive type F90.0 Active 14965973 Problem Unspecified mood [affective] disorder F39 Active 85168950 Problem Mood disorder F39 Active 46321773 Problem Irritable bowel syndrome with both constipation and diarrhea K58.2 Active 13028853 Problem Unsteady gait R26.81 Active 20630456 Problem 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 Active 24855183 Problem Depression, unspecified depression type F32.9 Active 80738904 Problem 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 Active 699325227 Problem Anxiety F41.9 Active 60552052 Problem Mild intellectual disability F70 Active 67033448 ALLERGIES Substance Reaction Event Type Date Status Zithromax Unknown Drug Allergy Aug, Active Promethazine HCl n/v Drug Allergy Aug, Active Macrobid n/v Drug Allergy Aug, Active Tetracycline HCl Unknown Drug Allergy Aug, Active Sulfamethoxazole dizziness Drug Allergy Aug, Active Posen Carbonate Unknown Drug Allergy Aug, Active Levaquin n/v Drug Allergy Aug, Active Keflex n/v Drug Allergy Aug, Active Estradiol Unknown Drug Allergy Aug, Active Depakote n/v Drug Allergy Aug, Active Codeine Sulfate Unknown Drug Allergy Aug, Active Codeine Phosphate n/v Drug Allergy Aug, Active Clindamycin HCl Unknown Drug Allergy Aug, Active Amoxicillin anaphylaxis and n/v Drug Allergy Aug, Active latex Unknown Non Drug Allergy Aug, Active ENCOUNTERS Encounter Location Date Diagnosis [facility] [address] [facility] [id number] [address] Mar, [facility] [address] [address] 77[address] Mar, [facility] [address], [place] [address]- 7576 Feb, [facility] [address] [id number] Feb, [facility] [id number] [place] [address] [id number] Feb, Dental caries extending into dentin K02.62 [facility] [id number] [place] [address] 169657- 0651 January, [facility] [address] [id number] 9036 January, [facility] [id number] [place] [address] 738270- 7026 January, Onychomycosis B35.1 [facility] [address] [id number] January, Dental caries extending into dentin K02.62 [facility] [address] 5236 Dec, [facility] [address], [place] [address]- 1793 Dec, [facility] [address] [place] [address] 211787- 8676 Dec, [facility] [address] Dec, Mild intellectual disability F70 ; Depression, unspecified depression type F32.9 ; Anxiety F41.9 and BMI 45.0-49.9, adult Z68.42 [facility] [address], [place] [address]- 4743 Dec, Folliculitis L73.9 [facility] [id number] [place] [address] [phone]- 6968 Dec, Mild intellectual disability F70 ; Unsteady gait R26.81 and Generalized weakness R53.1 [facility] [id number] [place] [address] [phone] 15 Nov, 2017 [facility] [id number] [place] [address] 94906- 3882 14 Nov, 2017 [facility] [address] [id number] 2938 Nov, Folliculitis L73.9 ; Tinea corporis B35.4 and Onychomycosis B35.1 [facility] [id number] [place] [address] [phone] Oct, [facility] [id number] [place] [address] 45615- 8535 Oct, Mood disorder F39 [facility] [id number] [place] [address] 10133- 2629 Oct, [facility] [id number] [place] [address] 32007 -0277 Oct, Left hip pain M25.552 and Muscle spasm M62.838 [facility] [id number] [place] [address] [id number] Oct, [facility] [id number] [place] [address] 79549- 5482 Oct, 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 ; Anxiety F41.9 ; Onychomycosis B35.1 ; BMI 40.0-44.9, adult Z68.41 and Alkaline phosphatase elevation R74.8 [facility] [id number] [place] [address] 06393- 9309 Sep, Mild intellectual disability F70 [facility] [address] 32048- 3647 Sep, [facility] [id number] [place] [address] 35221- 9701 Sep, Alkaline phosphatase elevation R74.8 [facility] [id number] [place] [address] 87178- 9307 Sep, Alkaline phosphatase elevation R74.8 [facility] [id number] [place] [address] 52568- 0496 Sep, Mood disorder F39 ; Attention deficit hyperactivity disorder (ADHD), predominantly inattentive type F90.0 ; Irritable bowel syndrome with both constipation and diarrhea K58.2 and Seizures R56.9 [facility] [address] 17882- 2410 Sep, Mild intellectual disability F70 ; Depression, unspecified depression type F32.9 ; Anxiety F41.9 and BMI 40.0-44.9, adult Z68.41 [facility] [id number] [place] [address] 15809- 5565 Sep, [facility] [id number] [place] [address] 32403- 0740 Sep, [facility] [id number] [place] [address] 97868- 4960 Sep, [facility] [address] [place] [address] 12798- 2997 Sep, [facility] [address] [place] [address] 12454- 0853 Sep, [facility] [id number] [place] [address] [id number] Aug, Encounter for dental examination and cleaning without abnormal findings Z01.20 [facility] [id number] [place] [address] [id number] Aug, Dental examination Z01.20 [facility] [address] [place] [address] 12470- 0996 Aug, [facility] [id number] [address]- 2988 14 Aug, 2017 Depression, unspecified depression type F32.9 ; Mild intellectual disability F70 and Anxiety F41.9 [facility] [address] [place] [address]- [address]01 08 Aug, 2017 Mood disorder F39 ; Attention deficit hyperactivity disorder (ADHD), predominantly inattentive type F90.0 ; Irritable bowel syndrome with both constipation and diarrhea K58.2 and Seizures R56.9 [facility] [id number] [place] [address] 41367- 0245 05 Aug, 2017 Depression, unspecified depression type F32.9 ; Mild intellectual disability F70 and Anxiety F41.9 [facility] [address] [place] [address] 96485- 4919 04 Aug, 2017 [facility] [id number] [place] [address] [id number] Jul, Dental examination Z01.20 and Dental caries K02.9 [facility] [id number] [address]- 1570 Jun, Unspecified mood [affective] disorder F39 and 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 [facility] [id number] [place] [address] [id number] May, Encounter for dental examination and cleaning without abnormal findings Z01.20 [facility] [id number] [place] [address] [id number] Mar, Dental examination Z01.20 [facility] [id number] [place] [address] [id number] Sep, Dental examination Z01.20 [facility] [id number] [place] [address] [id number] January, Dental examination Z01.20 [facility] [id number] [place] [address] [id number] Dec, Encounter for dental examination Z01.20 [facility] [address] [id number] [id number] Dec, Dental examination Z01.20 [facility] [address] [id number] [id number] Nov, Dental examination Z01.20 [facility] [address] [id number] Jul, Encounter for dental examination Z01.20 and Dental examination Z01.20 [facility] [address] [id number] [id number] Apr, Dental examination V72.2 [facility] [address] [id number] Mar, Dental examination V72.2 [facility] [id number] [place] [address] 35985- 2546 January, [facility] [id number] [place] [address] 01842- 2546 January, [facility] [address], [place] [address]- 2546 January, [facility] [id number] [place] [address] 82265 2546 January, [facility] [address], [place] [address]- 2546 Jul, IMMUNIZATIONS No Known Immunizations SOCIAL HISTORY Never Assessed REASON FOR VISIT PLAN OF CARE Activity Details Follow Up prn Reason:restorative VITAL SIGNS MEDICATIONS Medication Instructions Dosage Frequency Start Date End Date Duration Status Dicyclomine HCl 20 mg Orally Four times a day 2 capsules 6h Active Estradiol 0.5 MG Orally Once a day 1 tablet 24h Active Simvastatin 20 mg Orally Once a day 1 tablet 24h Active Loratadine 10 mg Orally Once a day 1 tablet 24h Active VESIcare 5 mg Orally Once a day 1 tablet 24h Active Verapamil HCl ER 120 MG Orally Once a day 1 tablet 24h Active Strattera 100 MG Orally Once a day 1 capsule 24h Active Atomoxetine HCl 100 MG Orally Once a day 1 capsule in the morning 24h 30 days Active Lamotrigine 100 MG Orally Twice a day 1 tablet 12h 30 days Active Phenytoin 100 mg 3 tablets 12h Active Montelukast Sodium 10 mg Orally Once a day 1 tablet 24h Active Protonix 40 mg Orally Once a day 1 tablet 24h Active Aspirin 81 MG 1 tablet Active Diflucan 100 MG Orally Once a day 1 tablet 24h Not-Taking Meclizine HCl 25 MG Orally TID 1 tablet 8h Active Elmiron 100 mg Orally Three times a day 1 capsule on an empty stomach 8h Active Amitriptyline HCl 75 MG Orally Once a day 1 tablet 24h 30 days Active One-A-Day Bone Strength Active Calcium 600-400 MG-UNIT Orally Once a day 24h Active Topiramate 100 mg Orally Twice a day 1 tablet 12h 30 days Active RESULTS No Results PROCEDURES Procedure Date Ordered Result Body Site COMP ORAL EVALUATION - NEW/EST PT Sep 21, 2017 BITEWINGS - FOUR FILMS Sep 21, 2017 INSTRUCTIONS MEDICATIONS ADMINISTERED No Known Medications [...]
--- OUTSIDE RECORDS SUMMARY | 2018-06-16 09:33 | XMS REPORT ---
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 Name Role Phone YU SAMUEL Unavailable PROBLEMS Type Condition ICD9-CM Code [id number] Code Onset Dates Condition Status SNOMED Code Problem Attention deficit hyperactivity disorder (ADHD), predominantly inattentive type F90.0 Active 79612305 Problem Unspecified mood [affective] disorder F39 Active 94662020 Problem Mood disorder F39 Active 06557043 Problem Irritable bowel syndrome with both constipation and diarrhea K58.2 Active 97123683 Problem Unsteady gait R26.81 Active 41739265 Problem 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 Active 98900293 Problem Depression, unspecified depression type F32.9 Active 17116239 Problem 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 Active 314144549 Problem Anxiety F41.9 Active 99040130 Problem Mild intellectual disability F70 Active 72022573 ALLERGIES No Information ENCOUNTERS Encounter Location Date Diagnosis [facility] [id number] [place] [address] 54289- 9713 Mar, [facility] [id number] [place] [address] 44296- 8461 Mar, [facility] [id number] [place] [address] 65708- 7382 Feb, [facility] [id number] [place] [address] [id number] Feb, [facility] [id number] [place] [address] [id number] Feb, Dental caries extending into dentin K02.62 [facility] [id number] [place] [address] 83068- 8336 January, [facility] [id number] [place] [address] 90694- 2708 January, [facility] [address] 15009- 9111 January, Onychomycosis B35.1 [facility] [id number] [place] [address] [id number] January, Dental caries extending into dentin K02.62 [facility] [address] 84899- 8111 Dec, [facility] [id number] [place] [address] 21233- 7603 Dec, [facility] [id number] [place] [address] 84919- 0616 Dec, [facility] [id number] [place] [address] 87299- 9873 Dec, Mild intellectual disability F70 ; Depression, unspecified depression type F32.9 ; Anxiety F41.9 and BMI 45.0-49.9, adult Z68.42 [facility] [id number] [place] [address] 46733- 5085 Dec, Folliculitis L73.9 [facility] [id number] [place] [address] 37970- 2690 Dec, Mild intellectual disability F70 ; Unsteady gait R26.81 and Generalized weakness R53.1 [facility] [id number] [place] [address] [id number] Nov, [facility] [id number] [place] [address] 77799- 9760 Nov, [facility] [id number] [place] [address] 55654- 5840 Nov, Folliculitis L73.9 ; Tinea corporis B35.4 and Onychomycosis B35.1 [facility] [id number] [place] [address] [id number] Oct, [facility] [address] [address] 3954 Oct, Mood disorder F39 [facility] [address] [address] 0904 Oct, [facility] [address] [address] Oct, Left hip pain M25.552 and Muscle spasm M62.838 [facility] [id number] [id number] Oct, [facility] [id number] [place] [address] 20270- 0278 Oct, 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 ; Anxiety F41.9 ; Onychomycosis B35.1 ; BMI 40.0-44.9, adult Z68.41 and Alkaline phosphatase elevation R74.8 [facility] [id number] [place] [address] 73371- 5859 Sep, Mild intellectual disability F70 [facility] [id number] [place] [address] 17441- 6316 Sep, [facility] [id number] [place] [address] 25184- 7075 Sep, Alkaline phosphatase elevation R74.8 [facility] [id number] [place] [address] 17719- 4927 Sep, Alkaline phosphatase elevation R74.8 [facility] [id number] [place] [address] 41927- 4671 Sep, Mood disorder F39 ; Attention deficit hyperactivity disorder (ADHD), predominantly inattentive type F90.0 ; Irritable bowel syndrome with both constipation and diarrhea K58.2 and Seizures R56.9 [facility] [address] [place] [address] 04303- 2841 Sep, Mild intellectual disability F70 ; Depression, unspecified depression type F32.9 ; Anxiety F41.9 and BMI 40.0-44.9, adult Z68.41 [facility] [id number] [address]- 6417 Sep, [facility] [address] [address]- 3987 Sep, [facility] [id number] [place] [address] 69891- 9086 Sep, [facility] [id number] [place] [address] 68806- 7463 Sep, [facility] [id number] [place] [address] 64234- 5717 Sep, [facility] [id number] [place] [address] [id number] Aug, Encounter for dental examination and cleaning without abnormal findings Z01.20 [facility] [id number] [place] [address] [id number] Aug, Dental examination Z01.20 [place] [id number] [place] [address] 95058- 2358 Aug, [place] [id number] [place] [address] 26722- 6414 Aug, Depression, unspecified depression type F32.9 ; Mild intellectual disability F70 and Anxiety F41.9 [facility] [address] [place] [address] 03597- 1892 Aug, Mood disorder F39 ; Attention deficit hyperactivity disorder (ADHD), predominantly inattentive type F90.0 ; Irritable bowel syndrome with both constipation and diarrhea K58.2 and Seizures R56.9 [facility] [address], [place] [address]- 8940 Aug, Depression, unspecified depression type F32.9 ; Mild intellectual disability F70 and Anxiety F41.9 [place] [id number] [address]- 2546 Aug, [facility] [id number] [place] [address] [id number] Jul, Dental examination Z01.20 and Dental caries K02.9 [facility] [address] [id number] [address]- 2546 Jun, Unspecified mood [affective] disorder F39 and 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 [facility] [id number] [place] [address] [id number] May, Encounter for dental examination and cleaning without abnormal findings Z01.20 [facility] [id number] [place] [address] [id number] Mar, Dental examination Z01.20 [facility] [id number] [place] [address] [id number] Sep, Dental examination Z01.20 [facility] [id number] [place] [address] [id number] January, Dental examination Z01.20 [facility] [address] [id number] [place] [address] [id number] Dec, Encounter for dental examination Z01.20 [facility] [id number] [place] [address] [id number] Dec, Dental examination Z01.20 [facility] [address] [id number] [place] [address] [id number] Nov, Dental examination Z01.20 [facility] [id number] [place] [address] [id number] Jul, Encounter for dental examination Z01.20 and Dental examination Z01.20 [facility] [address] [id number] [place] [address] [id number] Apr, Dental examination V72.2 [facility] [id number] [place] [address] [id number] Mar, Dental examination V72.2 [facility] [address] [facility] [id number] [place] [address]- 1814 January, [facility] [address] [facility] [id number] [address]- 9317 January, [facility] [address] [facility] [id number], [place] [address]- 1667 January, [facility] [address] [facility] [id number], [place] [address]- [address] January, [facility] [address] [facility] [id number], [place] [address]- 7539 Jul, IMMUNIZATIONS No Known Immunizations SOCIAL HISTORY Never Assessed REASON FOR VISIT Medication question PLAN OF CARE VITAL SIGNS MEDICATIONS Medication Instructions Dosage Frequency Start Date End Date Duration Status Sudafed 30 MG Orally every 6 hrs 1 tablet as needed 6h Sep, Active RESULTS No Results PROCEDURES No Known [...]
--- OUTSIDE RECORDS SUMMARY | 2018-06-16 09:33 | XMS REPORT ---
Author Author RHODA MARILU 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 Name Role Phone ZEINAREYNA MARILU Unavailable PROBLEMS Type Condition ICD9-CM Code KPT27-ST Code Onset Dates Condition Status SNOMED Code Problem Attention deficit hyperactivity disorder (ADHD), predominantly inattentive type F90.0 Active 88410904 Problem Unspecified mood [affective] disorder F39 Active 66592785 Problem Mood disorder F39 Active 97119246 Problem Irritable bowel syndrome with both constipation and diarrhea K58.2 Active 86687406 Problem Unsteady gait R26.81 Active 84656779 Problem 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 Active 66202820 Problem Depression, unspecified depression type F32.9 Active 83251966 Problem 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 Active 594851517 Problem Anxiety F41.9 Active 57927196 Problem Mild intellectual disability F70 Active 64810023 ALLERGIES No Information ENCOUNTERS Encounter Location Date Diagnosis [facility] [id number] [place] [address] 77323- 1076 Mar, [facility] [id number] [place] [address] 10600- 2930 Feb, [facility] [id number] [place] [address] [id number] Feb, [facility] [id number] [place] [address] [id number] Feb, Dental caries extending into dentin K02.62 [facility] [id number] [place] [address] 15295- 4245 January, [facility] [id number] [place] [address] 40428- 4023 January, [facility] [id number] [place] [address] 67451- 7396 January, Onychomycosis B35.1 [facility] [id number] [place] [address] [id number] January, Dental caries extending into dentin K02.62 [facility] [address] 16099- 0567 Dec, [facility] [address] 93833- 0003 Dec, [facility] [address] 69660- 0755 Dec, [facility] [address] 92805- 1741 Dec, Mild intellectual disability F70 ; Depression, unspecified depression type F32.9 ; Anxiety F41.9 and BMI 45.0-49.9, adult Z68.42 [facility] [id number] [place] [address] 10792- 8168 Dec, Folliculitis L73.9 [facility] [id number] [place] [address] 87042- 9811 Dec, Mild intellectual disability F70 ; Unsteady gait R26.81 and Generalized weakness R53.1 [facility] [id number] [place] [address] [id number] Nov, [facility] [id number] [place] [address] 60075- 5560 Nov, [facility] [id number] [place] [address] 61573- 5798 Nov, Folliculitis L73.9 ; Tinea corporis B35.4 and Onychomycosis B35.1 [facility] [id number] [place] [address] [id number] Oct, [facility] [address] [place] [address]- 7871 Oct, Mood disorder F39 [facility] [id number] [place] [address] 29125- 0795 Oct, [facility] [address] [place] [address] 07731 -4454 Oct, Left hip pain M25.552 and Muscle spasm M62.838 [facility] [address] [place] [address] [phone] Oct, [facility] [id number] [place] [address] 82908- 4257 Oct, 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 ; Anxiety F41.9 ; Onychomycosis B35.1 ; BMI 40.0-44.9, adult Z68.41 and Alkaline phosphatase elevation R74.8 [facility] [id number] [place] [address] 44764- 7715 Sep, Mild intellectual disability F70 [facility] [id number] [place] [address] 50726- 3803 Sep, [facility] [id number] [place] [address] 32653- 1979 Sep, Alkaline phosphatase elevation R74.8 [facility] [id number] [place] [address] 53757- 6849 Sep, Alkaline phosphatase elevation R74.8 [facility] [id number] [place] [address] 23675- 3805 Sep, Mood disorder F39 ; Attention deficit hyperactivity disorder (ADHD), predominantly inattentive type F90.0 ; Irritable bowel syndrome with both constipation and diarrhea K58.2 and Seizures R56.9 [facility] [address], [place] [address]- 3217 Sep, Mild intellectual disability F70 ; Depression, unspecified depression type F32.9 ; Anxiety F41.9 and BMI 40.0-44.9, adult Z68.41 [facility] [address], [place] [address]- 3774 Sep, [facility] [id number] [place] [address] 19571- 8974 Sep, [facility] [address] [place] [address] 87201- 1568 Sep, [facility] [id number] [place] [address] 570123- 0842 Sep, [facility] [id number] [place] [address] 84340- 7996 Sep, [facility] [id number] [place] [address] [id number] Aug, Encounter for dental examination and cleaning without abnormal findings Z01.20 [facility] [id number] [place] [address] [id number] Aug, Dental examination Z01.20 [facility] [address] [place] [address] 05364- 2984 Aug, [facility] [id number] [place] [address] 50128- 3995 Aug, Depression, unspecified depression type F32.9 ; Mild intellectual disability F70 and Anxiety F41.9 [place] [id number] [place] [address] 52782- 5235 Aug, Mood disorder F39 ; Attention deficit hyperactivity disorder (ADHD), predominantly inattentive type F90.0 ; Irritable bowel syndrome with both constipation and diarrhea K58.2 and Seizures R56.9 [facility] [id number] [place] [address] 40497- 5124 Aug, Depression, unspecified depression type F32.9 ; Mild intellectual disability F70 and Anxiety F41.9 [facility] [id number] [place] [address] 05816- 2339 Aug, [facility] [address] [facility] [id number] [place] [address] [id number] Jul, Dental examination Z01.20 and Dental caries K02.9 [facility] [id number] [place] [address] 35723- 0446 Jun, Unspecified mood [affective] disorder F39 and 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 [facility] [id number] [place] [address] [id number] May, Encounter for dental examination and cleaning without abnormal findings Z01.20 [facility] [id number] [place] [address] [id number] Mar, Dental examination Z01.20 [facility] [id number] [place] [address] [id number] Sep, Dental examination Z01.20 [facility] [id number] [place] [address] [id number] January, Dental examination Z01.20 [facility] [id number] [place] [address] [id number] Dec, Encounter for dental examination Z01.20 [facility] [id number] [place] [address] [id number] Dec, Dental examination Z01.20 [facility] [address] [id number] [place] [address] [id number] Nov, Dental examination Z01.20 [facility] [address] [id number] [place] [address] [id number] Jul, Encounter for dental examination Z01.20 and Dental examination Z01.20 [facility] [address] [id number] [place] [address] [id number] Apr, Dental examination V72.2 [facility] [address] [id number] [place] [address] [id number] Mar, Dental examination V72.2 [facility] [id number] [place] [address] 34670- 5037 January, [facility] [address] [facility] [id number] [place] 2731 January, [facility] [address] [facility] [id number], [place] [address]- 3376 January, [facility] [address] [facility] [id number], [place] [address]- 1498 January, [facility] [address] [facility] [id number]- 7810 Jul, IMMUNIZATIONS No Known Immunizations SOCIAL HISTORY Never Assessed REASON FOR VISIT Returned call PLAN OF CARE VITAL SIGNS MEDICATIONS [...]
--- OUTSIDE RECORDS SUMMARY | 2018-06-16 09:33 | XMS REPORT ---
Author Author CHANDNI WILSON [facility] Address [address] [place] [address] Phone Unavailable Care Team Providers Care Blow Molding Machine Tender Name Role Phone CHANDNI WILSON Unavailable Unavailable PROBLEMS Type Condition ICD9-CM Code [id number] Code Onset Dates Condition Status SNOMED Code Problem Attention deficit hyperactivity disorder (ADHD), predominantly inattentive type F90.0 Active 43839570 Problem Unspecified mood [affective] disorder F39 Active 54274313 Problem Mood disorder F39 Active 18691343 Problem Irritable bowel syndrome with both constipation and diarrhea K58.2 Active 07579143 Problem Unsteady gait R26.81 Active 57448793 Problem 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 Active 16215081 Problem Depression, unspecified depression type F32.9 Active 87386746 Problem 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 Active 321956441 Problem Anxiety F41.9 Active 60520575 Problem Mild intellectual disability F70 Active 39865976 ALLERGIES Substance Reaction Event Type Date Status Sulfamethoxazole Unknown Drug Allergy May, Active Codeine Sulfate Unknown Drug Allergy May, Active Clindamycin HCl Unknown Drug Allergy May, Active Amoxicillin Unknown Drug Allergy May, Active ENCOUNTERS Encounter Location Date Diagnosis [facility] [address] [id number], [place] [address] Mar, [facility] [address] [id number], [place] [address] January, [facility] [address] [id number] [id number] January, [facility] [address] [address] Dec, [facility] [address] [id number] [id number] Dec, [facility] [address] [address] Dec, [facility] [address] [address] Dec, Mild intellectual disability F70 ; Depression, unspecified depression type F32.9 ; Anxiety F41.9 and BMI 45.0-49.9, adult Z68.42 [facility] [address] [address] Dec, Folliculitis L73.9 [facility] [address] [address]- [address] Dec, Mild intellectual disability F70 ; Unsteady gait R26.81 and Generalized weakness R53.1 [facility] [address] [id number] Nov, [facility] [address] [address] Nov, [facility] [address] [address]- [address] Nov, Folliculitis L73.9 ; Tinea corporis B35.4 and Onychomycosis B35.1 [facility] [address] [id number] Oct, [facility] [address] [address] Oct, Mood disorder F39 [facility] [address] [address]- [address] Oct, [facility] [address] [address] Oct, Left hip pain M25.552 and Muscle spasm M62.838 [facility] [address] [id number] Oct, [facility] [address] [place] [address] Oct, 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 ; Anxiety F41.9 ; Onychomycosis B35.1 ; BMI 40.0-44.9, adult Z68.41 and Alkaline phosphatase elevation R74.8 [facility] [id number] [place] [address]- 28[address] Sep, Mild intellectual disability F70 [place] [facility] [id number] [place] [address] 14973- 4487 Sep, [place] [id number] [place] [address] 057[address]- 9691 Sep, Alkaline phosphatase elevation R74.8 [place] [id number] [place] [address] 41158- 2560 Sep, Alkaline phosphatase elevation R74.8 [place] [id number] [place] [address] 97456- 9259 Sep, Mood disorder F39 ; Attention deficit hyperactivity disorder (ADHD), predominantly inattentive type F90.0 ; Irritable bowel syndrome with both constipation and diarrhea K58.2 and Seizures R56.9 [place] [id number] [place] [address] 46961- 0891 Sep, Mild intellectual disability F70 ; Depression, unspecified depression type F32.9 ; Anxiety F41.9 and BMI 40.0-44.9, adult Z68.41 [place] [address] [place] [address] 618[address]- 0533 Sep, [place] [id number] [place] [address] 59[address]- 4058 Sep, [place] [id number] [place] [address] 60019- 8683 Sep, [place] [id number] [place] [address] 66945- 0408 Sep, [place] [address] [place] [address] Sep, [facility] [id number] [place] [address] [id number] Aug, Encounter for dental examination and cleaning without abnormal findings Z01.20 [facility] [address] [place] [address] [id number] Aug, Dental examination Z01.20 [facility] [id number] [place] [address] 36[address]- 0688 Aug, [facility] [id number] [place] [address] 66150- 2284 Aug, Depression, unspecified depression type F32.9 ; Mild intellectual disability F70 and Anxiety F41.9 [facility] [id number] [place] [address] 52[address]- [address] 08 Aug, 2017 Mood disorder F39 ; Attention deficit hyperactivity disorder (ADHD), predominantly inattentive type F90.0 ; Irritable bowel syndrome with both constipation and diarrhea K58.2 and Seizures R56.9 [facility] [id number] [place] [address] 40570- 3281 05 Aug, 2017 Depression, unspecified depression type F32.9 ; Mild intellectual disability F70 and Anxiety F41.9 [facility] [address] [place] [address] 0[address]- [address] 04 Aug, 2017 [facility] [address] [place] [phone] Jul, Dental examination Z01.20 and Dental caries K02.9 [facility] [address] [place] [address] 30146- 6[address] Jun, Unspecified mood [affective] disorder F39 and 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 [facility] [address] [phone] May, 2017 Encounter for dental examination and cleaning without abnormal findings Z01.20 [facility] [address] [id number] [id number] Mar, Dental examination Z01.20 [facility] [address] [id number] [id number] Sep, Dental examination Z01.20 [facility] [address] [id number] [phone] January, Dental examination Z01.20 [facility] [address] [id number] [id number] Dec, Encounter for dental examination Z01.20 [facility] [address] [id number] [id number] Dec, Dental examination Z01.20 [facility] [address] [id number] [id number] Nov, Dental examination Z01.20 [facility] [address] [id number] [phone] Jul, Encounter for dental examination Z01.20 and Dental examination Z01.20 [facility] [address] [id number] [phone] Apr, Dental examination V72.2 [facility] [address] [id number] [id number] Mar, Dental examination V72.2 [facility] [address], [place] [address] January, [facility] [address], [place] [address] January, [facility] [address], [place] [address] January, [facility] [id number] [place] [address] 2546 January, [facility] [address], [place] [address] Jul, IMMUNIZATIONS No Known Immunizations SOCIAL HISTORY Never Assessed REASON FOR VISIT ADULT [facility] PLAN OF CARE Activity Details Follow Up 3 Months Reason:ON SITE RECALL VITAL SIGNS MEDICATIONS Medication Instructions Dosage Frequency Start Date End Date Duration Status Dicyclomine HCl Active Trimethobenzamide HCl Active Calcium Active Topiramate Active Cyproheptadine HCl Active Premarin Active Phenytoin Active Penicillin V Potassium Active Meclizine HCl Active Montelukast Sodium Active Amitriptyline & Diet Manage Pr Active Elmiron Active Ondansetron Active Tramadol HCl Active Aspirin Active Decongestant Active Verapamil HCl ER Active Strattera Active Omeprazole Active Diphenhydramine-Acetaminophen Active Azithromycin 250 MG Orally Once a day 2 tablets on the first day, then 1 tablet daily for 4 days 24h 4 days Active Butalbital-Acetaminophen Active ibuprofen Active Simvastatin Active Avelox Active Hyoscyamine Active One-A-Day Bone Strength Active Toviaz Active Carafate Active EpiPen 2-Eren Active Meclizine HCl Active Cephalexin Active Lamotrigine Active RESULTS No Results PROCEDURES Procedure Date Ordered Result Body Site PROPHYLAXIS - ADULT Jun 08, 2017 TOPICAL FLUORIDE VARNISH Jun 08, 2017 INSTRUCTIONS MEDICATIONS ADMINISTERED No Known Medications [...]
--- OUTSIDE RECORDS SUMMARY | 2018-06-16 09:33 | XMS REPORT ---
Author Author YU SAMUEL Organization [facility] Address [address] [place] [address] Care Team Providers Care Extrusion Engineer Name Role Phone YU SAMUEL Unavailable PROBLEMS Type Condition ICD9-CM Code [id number] Code Onset Dates Condition Status SNOMED Code Problem Attention deficit hyperactivity disorder (ADHD), predominantly inattentive type F90.0 Active 05067476 Problem Unspecified mood [affective] disorder F39 Active 68578019 Problem Mood disorder F39 Active 07036383 Problem Irritable bowel syndrome with both constipation and diarrhea K58.2 Active 54312165 Problem Unsteady gait R26.81 Active 19351707 Problem 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 Active 73470969 Problem Depression, unspecified depression type F32.9 Active 32814506 Problem 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 Active 124049691 Problem Anxiety F41.9 Active 00209049 Problem Mild intellectual disability F70 Active 28608959 ALLERGIES No Information ENCOUNTERS Encounter Location Date Diagnosis [facility] [address] [address] Mar, [facility] [id number] [place] [address]- 7576 Mar, [facility] [id number] [place] [address] 59204- 7645 Feb, [facility] [id number] [place] [address] [phone] Feb, [facility] [id number] [place] [address] [phone] Feb, Dental caries extending into dentin K02.62 [facility] [id number] [place] [address] 47577- 7682 January, [facility] [id number] [place] [address] 50111- 8862 January, [facility] [address] [address]- [address] January, Onychomycosis B35.1 [facility] [id number] [place] [address] [phone] January, Dental caries extending into dentin K02.62 [facility] [address] [address]- [address] Dec, [facility] [id number] [place] [address] 39099- 2898 Dec, [facility] [id number] [place] [address] 69[address]- 2008 Dec, [facility] [id number] [place] [address] 00720- 1031 Dec, Mild intellectual disability F70 ; Depression, unspecified depression type F32.9 ; Anxiety F41.9 and BMI 45.0-49.9, adult Z68.42 [facility] [id number] [place] [address] 83412- 7643 Dec, Folliculitis L73.9 [facility] [id number] [place] [address] 70984- 3231 Dec, Mild intellectual disability F70 ; Unsteady gait R26.81 and Generalized weakness R53.1 [facility] [id number] [place] [address] [phone] Nov, [facility] [id number] [place] [address] 65176- 4999 Nov, [facility] [id number] [place] [address] 30734- 7025 Nov, Folliculitis L73.9 ; Tinea corporis B35.4 and Onychomycosis B35.1 [facility] [id number] [place] [address] [phone] Oct, [facility] [address], [place] [address]- 85[address] Oct, Mood disorder F39 [facility] [address], [place] [address] Oct, [facility] [address], [place] [address] Oct, Left hip pain M25.552 and Muscle spasm M62.838 [facility] [id number] [phone] Oct, [facility] [address] [place] [address] 25505- 2443 Oct, 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 ; Anxiety F41.9 ; Onychomycosis B35.1 ; BMI 40.0-44.9, adult Z68.41 and Alkaline phosphatase elevation R74.8 [facility] [address] [place] [address] 79205- 7138 Sep, Mild intellectual disability F70 [facility] [address] [place] [address] 95685- 3397 Sep, [facility] [address] [place] [address] 68168- 3540 Sep, Alkaline phosphatase elevation R74.8 [facility] [address] [place] [address] 56938- 9127 Sep, Alkaline phosphatase elevation R74.8 [facility] [address] [place] [address] 96373- 0358 Sep, Mood disorder F39 ; Attention deficit hyperactivity disorder (ADHD), predominantly inattentive type F90.0 ; Irritable bowel syndrome with both constipation and diarrhea K58.2 and Seizures R56.9 [facility] [address] [place] [address] 64691- 8360 Sep, Mild intellectual disability F70 ; Depression, unspecified depression type F32.9 ; Anxiety F41.9 and BMI 40.0-44.9, adult Z68.41 [facility] [id number], [place] [address] 8[address] Sep, [facility] [address], [place] [address]- 5104 Sep, [facility] [id number] [place] [address] 85265- 2439 Sep, [facility] [id number] [place] [address] 95643- 8975 Sep, [facility] [id number] [place] [address] 16221- 2986 Sep, [facility] [id number] [place] [address] [id number] Aug, Encounter for dental examination and cleaning without abnormal findings Z01.20 [facility] [id number] [place] [address] [id number] Aug, Dental examination Z01.20 [place] [id number] [place] [address] 37684- 7774 Aug, [place] [address] [place] [address] 24517- 1042 Aug, Depression, unspecified depression type F32.9 ; Mild intellectual disability F70 and Anxiety F41.9 [facility] [address] [place] [address] 21398- 4928 Aug, Mood disorder F39 ; Attention deficit hyperactivity disorder (ADHD), predominantly inattentive type F90.0 ; Irritable bowel syndrome with both constipation and diarrhea K58.2 and Seizures R56.9 [facility] [address], [place] [address]- 79[address] Aug, Depression, unspecified depression type F32.9 ; Mild intellectual disability F70 and Anxiety F41.9 [place] [id number], [place] [address]- 2546 Aug, [facility] [id number] [place] [address] [phone] Jul, Dental examination Z01.20 and Dental caries K02.9 [facility] [address] [id number], [place] [address]- [address] Jun, Unspecified mood [affective] disorder F39 and 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 [facility] [id number] [place] [address] [phone] May, Encounter for dental examination and cleaning without abnormal findings Z01.20 [facility] [id number] [place] [address] [id number] Mar, Dental examination Z01.20 [facility] [id number] [place] [address] [phone] Sep, Dental examination Z01.20 [facility] [id number] [place] [address] [phone] January, Dental examination Z01.20 [facility] [id number] [place] [address] [phone] Dec, Encounter for dental examination Z01.20 [facility] [id number] [place] [address] [id number] Dec, Dental examination Z01.20 [facility] [id number] [place] [address] [id number] Nov, Dental examination Z01.20 [facility] [id number] [place] [address] [id number] Jul, Encounter for dental examination Z01.20 and Dental examination Z01.20 [facility] [id number] [place] [address] [id number] Apr, Dental examination V72.2 [facility] [id number] [place] [address] [phone] Mar, Dental examination V72.2 [facility] [address] [facility] [id number] [place] [address]- 1418 January, [facility] [address] [facility] [id number], [place] [address]- 3[address] January, [facility] [address] [facility] [id number], [place] [address]- 2966 January, [facility] [address] [facility] [id number], [place] [address]- 8639 January, [facility] [address] [facility] [id number], [place] [address]- [address]20 Jul, IMMUNIZATIONS No Known Immunizations SOCIAL HISTORY [...]
[2018-06-16] MEDS ORDERED: LACTATED RINGERS 1,000 ML IV STA (09:34)
--- OUTSIDE RECORDS SUMMARY | 2018-06-16 09:34 | XMS REPORT ---
Author Author MARILU DUONG Organization [facility] Address [address] [place] [address] Care Team Providers Care Psych Nurse Name Role Phone RHODA MARILU Unavailable PROBLEMS Type Condition ICD9-CM Code [id number] Code Onset Dates Condition Status SNOMED Code Problem Attention deficit hyperactivity disorder (ADHD), predominantly inattentive type F90.0 Active 69862925 Problem Unspecified mood [affective] disorder F39 Active 84008299 Problem Mood disorder F39 Active 28161159 Problem Irritable bowel syndrome with both constipation and diarrhea K58.2 Active 63858743 Problem Unsteady gait R26.81 Active 84364565 Problem 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 Active 44037110 Problem Depression, unspecified depression type F32.9 Active 22102070 Problem 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 Active 400556759 Problem Anxiety F41.9 Active 33628146 Problem Mild intellectual disability F70 Active 65554008 ALLERGIES Substance Reaction Event Type Date Status Zithromax Unknown Drug Allergy Aug, Active Promethazine HCl n/v Drug Allergy Aug, Active Macrobid n/v Drug Allergy Aug, Active Tetracycline HCl Unknown Drug Allergy Aug, Active Sulfamethoxazole dizziness Drug Allergy Aug, Active [place] Carbonate Unknown Drug Allergy Aug, Active Levaquin [...] Aug, Active ENCOUNTERS Encounter Location Date Diagnosis [facility] [address] [facility] [id number] [address] Mar, [facility] [address] [address] Feb, [facility] [address] [id number] Feb, [facility] [address] [id number] Feb, Dental caries extending into dentin K02.62 [facility] [id number] [place] [address] 187024- 3083 January, [facility] [id number] [place] [address] [phone]- 7010 January, [facility] [id number] [place] [address] 888677- 7976 January, Onychomycosis B35.1 [facility] [id number] [place] [address] [phone] January, Dental caries extending into dentin K02.62 [facility] [address], [place] [address] Dec, [facility] [id number] [place] [address] 995417- 1098 Dec, [facility] [address] Dec, [facility] [id number] [place] [address] 400934- 7595 Dec, Mild intellectual disability F70 ; Depression, unspecified depression type F32.9 ; Anxiety F41.9 and BMI 45.0-49.9, adult Z68.42 [facility] [address] [place] [address] 389533- 4141 Dec, Folliculitis L73.9 [facility] [address], [place] [address] 6092 Dec, Mild intellectual disability F70 ; Unsteady gait R26.81 and Generalized weakness R53.1 [facility] [address] [place] [address] [phone] 15 Nov, 2017 [facility] [address] [address]- [address] 14 Nov, 2017 [facility] [id number] [place] [address] 53169- 0015 Nov, Folliculitis L73.9 ; Tinea corporis B35.4 and Onychomycosis B35.1 [facility] [id number] [place] [address] [phone] Oct, [facility] [address] [address]- 4669 Oct, Mood disorder F39 [facility] [address] [address]- 9609 Oct, [facility] [address] [address] Oct, Left hip pain M25.552 and Muscle spasm M62.838 [facility] [id number] [place] [address] [id number] Oct, [facility] [id number] [place] [address] 12527- 9189 Oct, 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 ; Anxiety F41.9 ; Onychomycosis B35.1 ; BMI 40.0-44.9, adult Z68.41 and Alkaline phosphatase elevation R74.8 [facility] [id number] [place] [address] 68550- 5832 Sep, Mild intellectual disability F70 [facility] [id number] [place] [address] 16158- 0305 Sep, [facility] [address] 29634- 7675 Sep, Alkaline phosphatase elevation R74.8 [facility] [id number] [place] [address] 35084- 1709 Sep, Alkaline phosphatase elevation R74.8 [facility] [id number] [place] [address] 36490- 4889 Sep, Mood disorder F39 ; Attention deficit hyperactivity disorder (ADHD), predominantly inattentive type F90.0 ; Irritable bowel syndrome with both constipation and diarrhea K58.2 and Seizures R56.9 [facility] [id number] [place] [address] 80335- 1419 Sep, Mild intellectual disability F70 ; Depression, unspecified depression type F32.9 ; Anxiety F41.9 and BMI 40.0-44.9, adult Z68.41 [facility] [address] [address]- 6579 Sep, [facility] [address] 72422- 0595 Sep, [facility] [address] 95[address]- 4782 Sep, [facility] [address] 09449- 7568 Sep, [facility] [id number] [place] [address] 45988- 7219 Sep, [facility] [id number] [place] [address] [phone] Aug, Encounter for dental examination and cleaning without abnormal findings Z01.20 [facility] [id number] [place] [address] [id number] Aug, Dental examination Z01.20 [facility] [id number] [place] [address] 27175- 0217 Aug, [facility] [id number] [place] [address] 33517- 3504 Aug, Depression, unspecified depression type F32.9 ; Mild intellectual disability F70 and Anxiety F41.9 [facility] [address] [place] [address] [phone]- [phone] 08 Aug, 2017 Mood disorder F39 ; Attention deficit hyperactivity disorder (ADHD), predominantly inattentive type F90.0 ; Irritable bowel syndrome with both constipation and diarrhea K58.2 and Seizures R56.9 [facility] [address] 030[address]- 9451 Aug, Depression, unspecified depression type F32.9 ; Mild intellectual disability F70 and Anxiety F41.9 [facility] [address] 64[address]- 2047 Aug, [facility] [address] [id number] Jul, Dental examination Z01.20 and Dental caries K02.9 [facility] [id number] [place] [address] [phone] Jun, Unspecified mood [affective] disorder F39 and 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 [facility] [address] [place] [address] [phone] May, Encounter for dental examination and cleaning without abnormal findings Z01.20 [facility] [id number] [place] [address] [phone] Mar, Dental examination Z01.20 [facility] [id number] [place] [address] [phone] Sep, Dental examination Z01.20 [facility] [id number] [place] [address] [phone] January, Dental examination Z01.20 [facility] [address] [place] [address] [phone] Dec, Encounter for dental examination Z01.20 [facility] [id number] [place] [address] [id number] Dec, Dental examination Z01.20 [facility] [address] [facility] [id number] [phone] Nov, Dental examination Z01.20 [facility] [address] [phone] Jul, Encounter for dental examination Z01.20 and Dental examination Z01.20 [facility] [address] [id number] [phone] Apr, Dental examination V72.2 [facility] [address] [phone] Mar, Dental examination V72.2 [facility] [id number] [place] [address] 85275- 2546 January, [facility] [id number] [place] [address] 24969- 2546 January, [facility] [id number] [place] [address] 66706- 2546 January, [facility] [address], [place] [address]- 25[address] January, [facility] [id number] [place] [address] 60276 2546 Jul, IMMUNIZATIONS No Known Immunizations SOCIAL HISTORY Never Assessed REASON FOR VISIT f/u PLAN OF CARE Activity Details Follow Up 4 Weeks Reason: VITAL SIGNS MEDICATIONS Medication Instructions Dosage Frequency Start Date End Date Duration Status Amitriptyline HCl 75 MG Orally Once a day 1 tablet 24h 30 days Active Diflucan 100 MG Orally Once a day 1 tablet 24h Unknown Dicyclomine HCl 20 mg Orally Four times a day 2 capsules 6h Active Estradiol 0.5 MG Orally Once a day 1 tablet 24h Active Loratadine 10 mg Orally Once a day 1 tablet 24h Active Elmiron 100 mg Orally Three times a day 1 capsule on an empty stomach 8h Active Lamotrigine 100 MG Orally Twice a day 1 tablet 12h 30 days Active Protonix 40 mg Orally Once a day 1 tablet 24h Active Phenytoin 100 mg 3 tablets 12h Active Meclizine HCl 25 MG Orally TID 1 tablet 8h Active Atomoxetine HCl 100 MG Orally Once a day 1 capsule in the morning 24h 30 days Active VESIcare 5 mg Orally Once a day 1 tablet 24h Active Calcium 600-400 MG-UNIT Orally Once a day 24h Active Verapamil HCl ER 120 MG Orally Once a day 1 tablet 24h Active Strattera 100 MG Orally Once a day 1 capsule 24h Active Topiramate 100 mg Orally Twice a day 1 tablet 12h 30 days Active Montelukast Sodium 10 mg Orally Once a day 1 tablet 24h Active One-A-Day Bone Strength Active Aspirin 81 MG 1 tablet Active Simvastatin 20 mg Orally Once a day 1 tablet 24h Active RESULTS No Results PROCEDURES No Known [...]
--- OUTSIDE RECORDS SUMMARY | 2018-06-16 09:34 | XMS REPORT ---
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 Active 184518318 Problem Unspecified mood [affective] disorder F39 Active 95261354 Problem Irritable bowel syndrome with both constipation and diarrhea K58.2 Active 02541117 Problem Attention deficit hyperactivity disorder (ADHD), predominantly inattentive type F90.0 Active 32993969 Problem Postconcussion syndrome F07.81 Active 82940263 Problem Unsteady gait R26.81 Active 37543141 Problem Mild intellectual disability F70 Active 40496146 Problem Depression, unspecified depression type F32.9 Active 84785448 Problem 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 Active 91885529 Problem Anxiety F41.9 Active 34811761 ALLERGIES No Information ENCOUNTERS Encounter Location Date Diagnosis [facility] [id number] [place] [address] 24395- 4397 Mar, [facility] [id number] [place] [address] 88067- 9858 Mar, [facility] [id number] [place] [address] 44886- 3850 Feb, Postconcussion syndrome F07.81 [facility] [id number] [place] [address] 69115- 2549 Feb, [facility] [id number] [place] [address] [phone] Feb, [facility] [id number] [place] [address] [phone] Feb, Dental caries extending into dentin K02.62 [facility] [id number] [place] [address] 27716- 6355 January, [facility] [id number] [place] [address] 608217- 0316 January, [facility] [id number] [place] [address] 47791- 4229 January, Onychomycosis B35.1 [facility] [address] [place] [address] [phone] January, Dental caries extending into dentin K02.62 [facility] [id number] [place] [address] 09559- 6080 Dec, [facility] [id number] [place] [address] 09867- 7273 Dec, [facility] [id number] [place] [address] 63321- 4319 Dec, [facility] [id number] [place] [address] 13356- 9918 Dec, Mild intellectual disability F70 ; Depression, unspecified depression type F32.9 ; Anxiety F41.9 and BMI 45.0-49.9, adult Z68.42 [facility] [id number] [place] [address] 94475- 8301 Dec, Folliculitis L73.9 [facility] [id number] [place] [address] 72998- 4608 Dec, Mild intellectual disability F70 ; Unsteady gait R26.81 and Generalized weakness R53.1 [facility] [address] [place] [address] [id number] Nov, [facility] [id number] [place] [address] 76489- 3461 Nov, [facility] [id number] [place] [address] 02870- 4135 Nov, Folliculitis L73.9 ; Tinea corporis B35.4 and Onychomycosis B35.1 [facility] [id number] [place] [address] [phone] Oct, [facility] [id number] [place] [address] 62410- 0628 Oct, Mood disorder F39 [facility] [id number] [place] [address] 24885- 7756 Oct, [facility] [id number] [place] [address] 80985 -8805 Oct, Left hip pain M25.552 and Muscle spasm M62.838 [facility] [id number] [place] [address] [phone] Oct, [facility] [id number] [place] [address] 55870- 8547 Oct, 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 ; Anxiety F41.9 ; Onychomycosis B35.1 ; BMI 40.0-44.9, adult Z68.41 and Alkaline phosphatase elevation R74.8 [facility] [address] [place] [address] 50572- 4556 Sep, Mild intellectual disability F70 [facility] [id number] [place] [address] 09436- 9091 Sep, [facility] [id number] [place] [address] 26826- 4063 Sep, Alkaline phosphatase elevation R74.8 [place] [id number] [place] [address] 23589- 9908 Sep, Alkaline phosphatase elevation R74.8 [place] [facility] [id number] [place] [address] 03597- 1697 Sep, Mood disorder F39 ; Attention deficit hyperactivity disorder (ADHD), predominantly inattentive type F90.0 ; Irritable bowel syndrome with both constipation and diarrhea K58.2 and Seizures R56.9 [facility] [address] [place], [place] [address]- 6458 Sep, Mild intellectual disability F70 ; Depression, unspecified depression type F32.9 ; Anxiety F41.9 and BMI 40.0-44.9, adult Z68.41 [facility] [address] [place] [address]- 7191 Sep, [facility] [id number] [place] [address] 50451- 5869 Sep, [facility] [id number] [place] [address] 65675- 4558 Sep, [facility] [id number] [place] [address] 19395- 8756 Sep, [facility] [id number] [place] [address] 31634- 3097 Sep, [facility] [id number] [place] [address] [id number] Aug, Encounter for dental examination and cleaning without abnormal findings Z01.20 [facility] [id number] [place] [address] [phone] Aug, Dental examination Z01.20 [facility] [address] [place] [address] 68594- 3449 Aug, [facility] [id number] [place] [address] 45430- 8243 Aug, Depression, unspecified depression type F32.9 ; Mild intellectual disability F70 and Anxiety F41.9 [facility] [address] [place] [address]- 4423 Aug, Mood disorder F39 ; Attention deficit hyperactivity disorder (ADHD), predominantly inattentive type F90.0 ; Irritable bowel syndrome with both constipation and diarrhea K58.2 and Seizures R56.9 [facility] [id number], [place] [address]- 2546 Aug, Depression, unspecified depression type F32.9 ; Mild intellectual disability F70 and Anxiety F41.9 [facility] [address], [place] [address]- 2546 Aug, [facility] [address] [place] [address] [id number] Jul, Dental examination Z01.20 and Dental caries K02.9 [facility] [id number] [place] [address] 11522- 3286 Jun, Unspecified mood [affective] disorder F39 and 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 [facility] [id number] [place] [address] [phone] May, Encounter for dental examination and cleaning without abnormal findings Z01.20 [facility] [id number] [place] [address] [id number] Mar, Dental examination Z01.20 [facility] [id number] [place] [address] [id number] Sep, Dental examination Z01.20 [facility] [id number] [place] [address] [id number] January, Dental examination Z01.20 [facility] [id number] [place] [address] [phone] Dec, Encounter for dental examination Z01.20 [facility] [id number] [place] [address] [phone] Dec, Dental examination Z01.20 [facility] [id number] [place] [address] [phone] Nov, Dental examination Z01.20 [facility] [id number] [place] [address] [id number] Jul, Encounter for dental examination Z01.20 and Dental examination Z01.20 [facility] [id number] [place] [address] [id number] Apr, Dental examination V72.2 [facility] [address] [id number] [id number] Mar, Dental examination V72.2 [facility] [id number], [place] [address]- 0976 January, [facility] [address] [facility] [id number] [address]- 2476 January, [facility] [id number], [place] [address] 2546 January, [facility] [id number] [address]- 5804 January, [facility] [id number]- 9616 Jul, IMMUNIZATIONS No Known Immunizations SOCIAL HISTORY Never Assessed REASON FOR VISIT Fax lab/Request return call PLAN OF CARE VITAL SIGNS MEDICATIONS Unknown Medications RESULTS No Results PROCEDURES Procedure Date Ordered Result Body Site LAB NOT BILLED BY [facility] Oct 18, 2017 INSTRUCTIONS MEDICATIONS ADMINISTERED No Known Medications [...]
--- OUTSIDE RECORDS SUMMARY | 2018-06-16 09:34 | XMS REPORT ---
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 Active 988355854 Problem Unspecified mood [affective] disorder F39 Active 85946869 Problem Irritable bowel syndrome with both constipation and diarrhea K58.2 Active 27217613 Problem Attention deficit hyperactivity disorder (ADHD), predominantly inattentive type F90.0 Active 12792984 Problem Postconcussion syndrome F07.81 Active 15647957 Problem Unsteady gait R26.81 Active 70921641 Problem Mild intellectual disability F70 Active 80863576 Problem Depression, unspecified depression type F32.9 Active 26921265 Problem 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 Active 94599831 Problem Anxiety F41.9 Active 07656894 ALLERGIES No Information ENCOUNTERS Encounter Location Date Diagnosis [facility] [id number] [place] [address] 08645- 7330 Mar, [facility] [id number] [place] [address] 19398- 1190 Mar, [facility] [id number] [place] [address] 49712- 8246 Feb, [facility] [id number] [place] [address] 97590- 6948 Feb, Postconcussion syndrome F07.81 and Folliculitis L73.9 [facility] [address] [place] [address] 57253- 7286 Feb, Postconcussion syndrome F07.81 [facility] [address] Feb, [facility] [id number] [place] [address] [id number] Feb, [facility] [id number] [place] [address] [id number] Feb, Dental caries extending into dentin K02.62 [facility] [id number] [place] [address] 24824- 6929 January, [facility] [id number] [place] [address] 56608- 5568 January, [facility] [id number] [place] [address] 48075- 9088 January, Onychomycosis B35.1 [facility] [id number] [place] [address] [id number] January, Dental caries extending into dentin K02.62 [facility] [id number] [place] [address] 98381- 4575 Dec, [facility] [id number] [place] [address] 18363- 3237 Dec, [facility] [id number] [place] [address] 48209- 3771 Dec, [facility] [id number] [place] [address] 96887- 6013 Dec, Mild intellectual disability F70 ; Depression, unspecified depression type F32.9 ; Anxiety F41.9 and BMI 45.0-49.9, adult Z68.42 [facility] [id number] [place] [address] 86076- 4292 Dec, Folliculitis L73.9 [facility] [id number] [place] [address] 83073- 8292 Dec, Mild intellectual disability F70 ; Unsteady gait R26.81 and Generalized weakness R53.1 [facility] [address] [place] [address] [id number] 15 Nov, 2017 [facility] [address] 68311- 3372 14 Nov, 2017 [facility] [id number] [place] [address] [phone]- 6778 Nov, Folliculitis L73.9 ; Tinea corporis B35.4 and Onychomycosis B35.1 [facility] [id number] [place] [address] [id number] Oct, [facility] [address] 61097- 6577 Oct, Mood disorder F39 [facility] [address] 38621- 2564 Oct, [facility] [address] 32414 -4167 Oct, Left hip pain M25.552 and Muscle spasm M62.838 [facility] [id number] [place] [address] [id number] Oct, [facility] [address] 18204- 5733 Oct, 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 ; Anxiety F41.9 ; Onychomycosis B35.1 ; BMI 40.0-44.9, adult Z68.41 and Alkaline phosphatase elevation R74.8 [facility] [id number] [place] [address] 11662- 7643 Sep, Mild intellectual disability F70 [facility] [address] 65985- 8157 Sep, [facility] [address] 52795- 5326 Sep, Alkaline phosphatase elevation R74.8 [facility] [id number] [place] [address] 88590- 6620 Sep, Alkaline phosphatase elevation R74.8 [place] [address] 65982- 4220 Sep, Mood disorder F39 ; Attention deficit hyperactivity disorder (ADHD), predominantly inattentive type F90.0 ; Irritable bowel syndrome with both constipation and diarrhea K58.2 and Seizures R56.9 [place] [address] 44991- 2883 Sep, Mild intellectual disability F70 ; Depression, unspecified depression type F32.9 ; Anxiety F41.9 and BMI 40.0-44.9, adult Z68.41 [place] [address] 08763- 2338 Sep, [place] [address] 71383- 8249 Sep, [place] [address] 49674- 1843 Sep, [place] [address] 82645- 3852 Sep, [place] [address] 11704- 0957 Sep, [facility] [address] [id number] Aug, Encounter for dental examination and cleaning without abnormal findings Z01.20 [facility] [id number] [place] [address] [id number] Aug, Dental examination Z01.20 [facility] [address] 43269- 3145 14 Aug, 2017 [place] [address] 28091- 4572 Aug, Depression, unspecified depression type F32.9 ; Mild intellectual disability F70 and Anxiety F41.9 [facility] [address] [address] 08 Aug, 2017 Mood disorder F39 ; Attention deficit hyperactivity disorder (ADHD), predominantly inattentive type F90.0 ; Irritable bowel syndrome with both constipation and diarrhea K58.2 and Seizures R56.9 [facility] [address] [place] [address] 11467- 0319 05 Aug, 2017 Depression, unspecified depression type F32.9 ; Mild intellectual disability F70 and Anxiety F41.9 [facility] [id number] [place] [address] 21636- 9535 Aug, [facility] [id number] [place] [address] [id number] Jul, Dental examination Z01.20 and Dental caries K02.9 [facility] [id number] [place] [address] 74308- 4163 Jun, Unspecified mood [affective] disorder F39 and 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 [facility] [id number] [place] [address] [id number] May, Encounter for dental examination and cleaning without abnormal findings Z01.20 [facility] [id number] [place] [address] [id number] Mar, Dental examination Z01.20 [facility] [id number] [place] [address] [id number] Sep, Dental examination Z01.20 [facility] [id number] [place] [address] [id number] January, Dental examination Z01.20 [facility] [id number] [place] [address] [id number] Dec, Encounter for dental examination Z01.20 [facility] [id number] [place] [address] [id number] Dec, Dental examination Z01.20 [facility] [id number] [place] [address] [id number] Nov, Dental examination Z01.20 [facility] [id number] [id number] Jul, Encounter for dental examination Z01.20 and Dental examination Z01.20 [facility] [id number] [phone] Apr, Dental examination V72.2 [facility] [address] [place] [address] [id number] Mar, Dental examination V72.2 [facility] [id number] [place] [address] 47853- 2546 January, [facility] [id number] [place] [address] 46822- 2546 January, [facility] [address] [place] [address] 31457- 2546 January, [facility] [address] [place] [address] 37563- 2546 January, [facility] [address], [place] [address] 2546 Jul, IMMUNIZATIONS No Known Immunizations SOCIAL HISTORY Never Assessed REASON FOR VISIT requesting medication refill PLAN OF CARE VITAL SIGNS MEDICATIONS Unknown [...]
--- OUTSIDE RECORDS SUMMARY | 2018-06-16 09:35 | XMS REPORT ---
Author Author LUCIUSMATTY DEVLIN [facility] Address Unknown Care Team Providers Care Care Transition Mgr Name Role Phone MATTY VALENZUELA Unavailable PROBLEMS Type Condition ICD9-CM Code RVP44-SN Code Onset Dates Condition Status SNOMED Code Problem Attention deficit hyperactivity disorder (ADHD), predominantly inattentive type F90.0 Active 63041090 Problem Unspecified mood [affective] disorder F39 Active 36997499 Problem Mood disorder F39 Active 18551357 Problem Irritable bowel syndrome with both constipation and diarrhea K58.2 Active 25058350 Problem Unsteady gait R26.81 Active 80323173 Problem 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 Active 07085940 Problem Depression, unspecified depression type F32.9 Active 39733227 Problem 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 Active 597905931 Problem Anxiety F41.9 Active 75030459 Problem Mild intellectual disability F70 Active 37058212 ALLERGIES Substance Reaction Event Type Date Status Sulfamethoxazole Unknown Drug Allergy Jul, Active Codeine Sulfate Unknown Drug Allergy Jul, Active Clindamycin HCl Unknown Drug Allergy Jul, Active Amoxicillin Unknown Drug Allergy Jul, Active ENCOUNTERS Encounter Location Date Diagnosis [facility] [id number] [address]- 3195 Mar, [facility] [id number] [address]- 8843 Feb, [facility] [id number] [id number] Feb, [facility] [address] [address]- 6998 January, [facility] [address], [place] [address]- 0458 January, [facility] [id number] [place] [address] 25038- 4441 January, Onychomycosis B35.1 [facility] [address] [id number] January, Dental caries extending into dentin K02.62 [facility] [id number] [place] [address] 48762- 8896 Dec, [facility] [address] 16938- 1914 Dec, [facility] [id number] [place] [address] 11868- 4437 Dec, [facility] [id number] [place] [address] 61055- 6441 Dec, Mild intellectual disability F70 ; Depression, unspecified depression type F32.9 ; Anxiety F41.9 and BMI 45.0-49.9, adult Z68.42 [facility] [id number] [place] [address] 39264- 7841 Dec, Folliculitis L73.9 [facility] [address] 56411- 7229 Dec, Mild intellectual disability F70 ; Unsteady gait R26.81 and Generalized weakness R53.1 [facility] [address] [place] [address] [id number] Nov, [facility] [id number] [place] [address] 06688- 2373 Nov, [facility] [id number] [place] [address] 65669- 5109 Nov, Folliculitis L73.9 ; Tinea corporis B35.4 and Onychomycosis B35.1 [facility] [address] [place] [address] [id number] Oct, [facility] [address] 87919- 6684 Oct, Mood disorder F39 [facility] [address] [place] [address] 15581- 2803 Oct, [facility] [address] [place] [address] 33461 -1055 Oct, Left hip pain M25.552 and Muscle spasm M62.838 [facility] [address] [place] [address] [id number] Oct, [facility] [id number] [place] [address] 11606- 0395 Oct, 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 ; Anxiety F41.9 ; Onychomycosis B35.1 ; BMI 40.0-44.9, adult Z68.41 and Alkaline phosphatase elevation R74.8 [facility] [id number] [place] [address] 20809- 6219 Sep, Mild intellectual disability F70 [facility] [id number] [place] [address] 51585- 6609 Sep, [facility] [id number] [place] [address] 12822- 6531 Sep, Alkaline phosphatase elevation R74.8 [facility] [id number] [place] [address] 86666- 6551 Sep, Alkaline phosphatase elevation R74.8 [place] [id number] [place] [address] 82246- 0768 Sep, Mood disorder F39 ; Attention deficit hyperactivity disorder (ADHD), predominantly inattentive type F90.0 ; Irritable bowel syndrome with both constipation and diarrhea K58.2 and Seizures R56.9 [facility] [address] [place] [address] 49392- 9239 Sep, Mild intellectual disability F70 ; Depression, unspecified depression type F32.9 ; Anxiety F41.9 and BMI 40.0-44.9, adult Z68.41 [facility] [address], [place] [address]- 8903 Sep, [facility] [id number] [address]- 7136 Sep, [facility] [address], [place] [address]- 4321 Sep, [facility] [id number] [place] [address] 79786- 5152 Sep, [facility] [address] [place] [address] 46003- 5331 Sep, [facility] [id number] [place] [address] [id number] Aug, Encounter for dental examination and cleaning without abnormal findings Z01.20 [facility] [id number] [place] [address] [id number] Aug, Dental examination Z01.20 [facility] [address] [place] [address] 71199- 4002 Aug, [facility] [id number] [place] [address] 14015- 4399 Aug, Depression, unspecified depression type F32.9 ; Mild intellectual disability F70 and Anxiety F41.9 [facility] [address], [place] [address]- 7494 Aug, Mood disorder F39 ; Attention deficit hyperactivity disorder (ADHD), predominantly inattentive type F90.0 ; Irritable bowel syndrome with both constipation and diarrhea K58.2 and Seizures R56.9 [facility] [address] [place] [address] 75743- 4546 Aug, Depression, unspecified depression type F32.9 ; Mild intellectual disability F70 and Anxiety F41.9 [facility] [address], [place] [address]- 7599 Aug, [facility] [id number] [place] [address] [id number] Jul, Dental examination Z01.20 and Dental caries K02.9 [facility] [id number] [place] [address] 57213- 7786 Jun, Unspecified mood [affective] disorder F39 and 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 [facility] [id number] [place] [address] [id number] May, Encounter for dental examination and cleaning without abnormal findings Z01.20 [facility] [id number] [place] [address] [id number] Mar, Dental examination Z01.20 [facility] [id number] [place] [address] [id number] Sep, Dental examination Z01.20 [facility] [id number] [place] [address] [id number] January, Dental examination Z01.20 [facility] [id number] [place] [address] [id number] Dec, Encounter for dental examination Z01.20 [facility] [id number] [place] [address] [id number] Dec, Dental examination Z01.20 [facility] [address] [id number] [place] [address] [phone] Nov, Dental examination Z01.20 [facility] [id number] [place] [address] [id number] Jul, Encounter for dental examination Z01.20 and Dental examination Z01.20 [facility] [address] [id number] [place] [address] [id number] Apr, Dental examination V72.2 [facility] [id number] [place] [address] [id number] Mar, Dental examination V72.2 [facility] [address] [place] [address] 31797- 5906 January, [facility] [address] [facility] [id number] [place] [address]- 8466 January, [facility] [address] [facility] [id number] [address]- 3256 January, [facility] [address] [facility] [id number] [address]- 0576 January, [facility] [address] [facility] [id number] [address]- 0143 Jul, IMMUNIZATIONS No Known Immunizations SOCIAL HISTORY Never Assessed REASON FOR VISIT dinora PLAN OF CARE Activity Details Follow Up prn Reason:JL VITAL SIGNS Blood pressure systolic 84 mmHg 2017-08-10 Blood pressure diastolic 48 mmHg 2017-08-10 MEDICATIONS Medication Instructions Dosage Frequency Start Date End Date Duration Status Tramadol HCl Not-Taking Lamotrigine Active Phenytoin Active Aspirin Active VESIcare 5 MG Orally Once a day 1 tablet 24h Active Loratadine 10 MG Orally Once a day 1 tablet 24h Active Montelukast Sodium Active Avelox Not-Taking Penicillin V Potassium Not-Taking Topiramate Active Hyoscyamine Not-Taking Diphenhydramine-Acetaminophen Not-Taking Calcium Active Trimethobenzamide HCl Not-Taking Alprazolam 0.25 MG Orally Twice a day 1 tablet 12h Active Premarin Not-Taking Ciprofloxacin 250 MG/5ML (5%) Active Meclizine HCl Active Carafate Not-Taking Cephalexin Not-Taking Cyproheptadine HCl Not-Taking Estradiol 0.5 MG 1 tablet Active Verapamil HCl ER Active Dicyclomine HCl Active Dexilant 60 MG Orally Once a day 1 capsule 24h Active Strattera Active Elmiron Active Strattera Unknown Nystatin 698050 UNIT/ML Mouth/Throat Four times a day 4 ml 6h Active Ondansetron Not-Taking Omeprazole Not-Taking Azithromycin 250 MG Orally Once a day 2 tablets on the first day, then 1 tablet daily for 4 days 24h 4 days Active Meclizine HCl Not-Taking Butalbital-Acetaminophen Not-Taking Temazepam 15 MG Orally Once a day 1 capsule at bedtime as needed 24h Active Simvastatin Active Mirtazapine 15 MG Orally Once a day 1 tablet at bedtime 24h Active Amitriptyline & Diet Manage Pr Not-Taking One-A-Day Bone Strength Active Toviaz Not-Taking ibuprofen Active Decongestant Active EpiPen 2-Eren Active RESULTS No Results PROCEDURES Procedure Date Ordered Result Body Site LTD ORAL EVALUATION - PROBLEM FOCUS Aug 10, 2017 INTRAORL-PERIAPICAL 1 FILM [id number] Aug 10, 2017 EXTRAC ERUPTED TOOTH/EXPOSED ROOT Aug 10, 2017 INSTRUCTIONS MEDICATIONS ADMINISTERED No Known Medications [...]
--- OUTSIDE RECORDS SUMMARY | 2018-06-16 09:35 | XMS REPORT ---
Author Author YU SAMUEL Organization [facility] Address [address] [place] [address] Care Team Providers Care Ink Maker Name Role Phone YU SAMUEL Unavailable PROBLEMS Type Condition ICD9-CM Code STR35-LW Code Onset Dates Condition Status SNOMED Code Problem Attention deficit hyperactivity disorder (ADHD), predominantly inattentive type F90.0 Active 33636596 Problem Unspecified mood [affective] disorder F39 Active 78923027 Problem Mood disorder F39 Active 96651508 Problem Irritable bowel syndrome with both constipation and diarrhea K58.2 Active 63342754 Problem Unsteady gait R26.81 Active 10630482 Problem 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 Active 13064677 Problem Depression, unspecified depression type F32.9 Active 00851661 Problem 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 Active 450260829 Problem Anxiety F41.9 Active 43318417 Problem Mild intellectual disability F70 Active 83761913 ALLERGIES No Information ENCOUNTERS Encounter Location Date Diagnosis [facility] [id number] [place] [address] 97957- 9541 Mar, [facility] [address] [address] Feb, [facility] [id number] [place] [address] [id number] Feb, [facility] [address] [address] January, [facility] [id number] [place] [address] 88077- 1681 January, [facility] [address] [address] 8[address] January, Onychomycosis B35.1 [facility] [id number] [place] [address] [id number] January, Dental caries extending into dentin K02.62 [facility] [address] 8[address]83- 8286 Dec, [facility] [id number] [place] [address] 43099- 1777 Dec, [facility] [address] 01819- 7010 Dec, [facility] [id number] [place] [address] 77112- 1773 Dec, Mild intellectual disability F70 ; Depression, unspecified depression type F32.9 ; Anxiety F41.9 and BMI 45.0-49.9, adult Z68.42 [facility] [id number] [place] [address] 60088- 9322 Dec, Folliculitis L73.9 [facility] [id number] [place] [address] 87084- 4770 Dec, Mild intellectual disability F70 ; Unsteady gait R26.81 and Generalized weakness R53.1 [facility] [address] [place] [address] [id number] Nov, [facility] [id number] [place] [address] 94362- 2476 Nov, [facility] [id number] [place] [address] 06010- 2368 Nov, Folliculitis L73.9 ; Tinea corporis B35.4 and Onychomycosis B35.1 [facility] [id number] [place] [address] [id number] Oct, [facility] [id number] [place] [address] 39062- 5783 Oct, Mood disorder F39 [facility] [address] 01894- 9692 Oct, [facility] [address] [address] Oct, Left hip pain M25.552 and Muscle spasm M62.838 [facility] [id number] [id number] Oct, [facility] [id number] [place] [address] 91327- 7526 Oct, 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 ; Anxiety F41.9 ; Onychomycosis B35.1 ; BMI 40.0-44.9, adult Z68.41 and Alkaline phosphatase elevation R74.8 [facility] [address] [place] [address] 29694- 8219 Sep, Mild intellectual disability F70 [facility] [id number] [place] [address] 21507- 8682 Sep, [facility] [id number] [place] [address] 08665- 5773 Sep, Alkaline phosphatase elevation R74.8 [facility] [id number] [place] [address] 83478- 0951 Sep, Alkaline phosphatase elevation R74.8 [facility] [address] [place] [address] 64005- 3980 Sep, Mood disorder F39 ; Attention deficit hyperactivity disorder (ADHD), predominantly inattentive type F90.0 ; Irritable bowel syndrome with both constipation and diarrhea K58.2 and Seizures R56.9 [facility] [address] [place] [address] 81334- 2201 Sep, Mild intellectual disability F70 ; Depression, unspecified depression type F32.9 ; Anxiety F41.9 and BMI 40.0-44.9, adult Z68.41 [facility] [address] [place] [address] 62819- 6150 Sep, [place] [address] [address] 8293 Sep, [facility] [id number] [place] [address] 04683- 2126 Sep, [facility] [id number] [place] [address] 03593- 3412 Sep, [facility] [id number] [place] [address] 67667- 8686 Sep, [facility] [id number] [place] [address] [id number] Aug, Encounter for dental examination and cleaning without abnormal findings Z01.20 [facility] [id number] [place] [address] [phone] Aug, Dental examination Z01.20 [place] [id number] [place] [address] 54390- 8671 14 Aug, 2017 [facility] [id number] [place] [address] 14202- 4437 Aug, Depression, unspecified depression type F32.9 ; Mild intellectual disability F70 and Anxiety F41.9 [place] [address] [place] [address] 88587- 1389 08 Aug, 2017 Mood disorder F39 ; Attention deficit hyperactivity disorder (ADHD), predominantly inattentive type F90.0 ; Irritable bowel syndrome with both constipation and diarrhea K58.2 and Seizures R56.9 [place] [address] [place] [address] 70694- 1858 05 Aug, 2017 Depression, unspecified depression type F32.9 ; Mild intellectual disability F70 and Anxiety F41.9 [place] [id number] [place] [address] 76937- 8642 Aug, [facility] [address] [place] [address] [id number] Jul, Dental examination Z01.20 and Dental caries K02.9 [place] [address] [address]- 2546 Jun, Unspecified mood [affective] disorder F39 and 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 [facility] [address] [id number] [id number] May, Encounter for dental examination and cleaning without abnormal findings Z01.20 [facility] [address] [id number] [id number] Mar, Dental examination Z01.20 [facility] [id number] [place] [address] [phone] Sep, Dental examination Z01.20 [facility] [id number] [place] [address] [id number] January, Dental examination Z01.20 [facility] [address] [id number] [id number] Dec, Encounter for dental examination Z01.20 [facility] [id number] [place] [address] [id number] Dec, Dental examination Z01.20 [facility] [id number] [place] [address] [id number] Nov, Dental examination Z01.20 [facility] [address] [id number] [id number] Jul, Encounter for dental examination Z01.20 and Dental examination Z01.20 [facility] [address] [id number] [id number] Apr, Dental examination V72.2 [facility] [address] [id number] [id number] Mar, Dental examination V72.2 [facility] [address] [address]- 2546 January, [facility] [id number] [address]- 0736 January, [facility] [id number] [address]- 4799 January, [facility] [address] [facility] [id number] [place] [address]- 6514 January, [facility] [address] [facility] [id number] [place] [address]- 8474 Jul, IMMUNIZATIONS No Known Immunizations SOCIAL HISTORY [...]
--- OUTSIDE RECORDS SUMMARY | 2018-06-16 09:36 | XMS REPORT ---
Author Author LUCIUSMATTY DEVLIN [facility] Address Unknown Care Team Providers Care Intelligence Engineer Name Role Phone MATTY VALENZUELA Unavailable PROBLEMS Type Condition ICD9-CM Code PYE76-HT Code Onset Dates Condition Status SNOMED Code Problem Attention deficit hyperactivity disorder (ADHD), predominantly inattentive type F90.0 Active 43560309 Problem Unspecified mood [affective] disorder F39 Active 57642314 Problem Mood disorder F39 Active 54279842 Problem Irritable bowel syndrome with both constipation and diarrhea K58.2 Active 41399725 Problem Unsteady gait R26.81 Active 20729233 Problem 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 Active 19163592 Problem Depression, unspecified depression type F32.9 Active 92035663 Problem 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 [address] [id number] [address] 1769 Dec, [facility] [address] [address] 8364 Dec, [facility] [address], [place] [address]- [address] Dec, [facility] [id number] [address]- 9460 Dec, Folliculitis L73.9 [facility] [address] [place] [address] 30979- 2720 05 Dec, 2017 Mild intellectual disability F70 ; Unsteady gait R26.81 and Generalized weakness R53.1 [facility] [id number] [place] [address] [id number] [phone] Nov, 2017 [facility] [address] [address]21- 7683 14 Nov, 2017 [facility] [address] 20693- 8788 Nov, Folliculitis L73.9 ; Tinea corporis B35.4 and Onychomycosis B35.1 [facility] [id number] [place] [address] [id number] Oct, [facility] [id number] [place] [address] 96680- 8254 Oct, Mood disorder F39 [facility] [id number] [place] [address] 83728- 5580 Oct, [facility] [address] 86159 -[address]66 Oct, Left hip pain M25.552 and Muscle spasm M62.838 [facility] [id number] [place] [address] [id number] Oct, 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 [id number] [place] [address] 03660- 4574 Sep, Mild intellectual disability F70 [facility] [address] [address]334- 9122 Sep, [facility] [id number] [place] [address] 20404- 7961 Sep, Alkaline phosphatase elevation R74.8 [facility] [id number] [place] [address] 19707- 0041 Sep, Alkaline phosphatase elevation R74.8 [facility] [id number] [place] [address] 86189- 3438 Sep, Mood disorder F39 ; Attention deficit hyperactivity disorder (ADHD), predominantly inattentive type F90.0 ; Irritable bowel syndrome with both constipation and diarrhea K58.2 and Seizures R56.9 [place] [address] 00362- 4825 Sep, Mild intellectual disability F70 ; Depression, unspecified depression type F32.9 ; Anxiety F41.9 and BMI 40.0-44.9, adult Z68.41 [facility] [id number] [place] [address] 36216- 5755 Sep, [facility] [id number] [place] [address] 10878- 0800 Sep, [facility] [id number] [place] [address] 77871- 8339 Sep, [facility] [id number] [place] [address] 95410- 3867 Sep, [facility] [id number] [place] [address] 34950- 6085 Sep, [facility] [id number] [place] [address] [id number] Aug, Encounter for dental examination and cleaning without abnormal findings Z01.20 [facility] [id number] [place] [address] [id number] Aug, Dental examination Z01.20 [facility] [id number] [place] [address] 51354- 8429 Aug, [place] [address], [place] [address]- 5586 14 Aug, 2017 Depression, unspecified depression type F32.9 ; Mild intellectual disability F70 and [address]41[address] [facility] [address], [place] [address]- 6754 08 Aug, 2017 Mood disorder F39 ; Attention deficit hyperactivity disorder (ADHD), predominantly inattentive type F90.0 ; Irritable bowel syndrome with both constipation and diarrhea K58.[address] [facility] [address] [place] [address] 73214- 4849 05 Aug, 2017 Depression, unspecified depression type F32.9 ; Mild intellectual disability F70 [address] [facility] [address] [place] [address] 56288- 4038 04 Aug, 2017 [facility] [id number] [place] [address] [id number] Jul, Dental examination Z01.20 [address] caries [address]02.9 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 [facility] [address] [place] [address] [id number] May, Encounter for dental examination and cleaning without abnormal findings Z01.20 [facility] [id number] [place] [address] [id number] Mar, Dental examination Z01.20 [facility] [id number] [place] [address] [id number] Sep, Dental examination Z01.20 [facility] [id number] [place] [address] [id number] January, Dental examination Z01.20 [facility] [id number] [place] [address] [id number] Dec, Encounter for dental examination Z01.20 [facility] [address] [id number] [id number] Dec, Dental examination Z01.20 [facility] [address] [id number] Nov, Dental examination Z01.20 [facility] [address] [id number] Jul, Encounter for dental examination Z01.20 and Dental examination Z01.20 [facility] [address] [id number] Apr, Dental examination V72.2 [facility] [id number] [place] [address] [id number] Mar, Dental examination V72.2 [facility] [address] [place] [address] 15939- 2646 January, [facility] [id number] [place] [address] 2546 January, [facility] [address] [address] 25[address] January, [facility] [address] [place] [address] 2546 January, [facility] [address], [place] [address]- 8956 Jul, IMMUNIZATIONS No Known Immunizations SOCIAL HISTORY Never Assessed REASON FOR VISIT JOSEFA PLAN OF CARE Activity Details Follow Up prn Reason:RCT #5 VITAL SIGNS Blood pressure systolic 107 mmHg 2017-04-13 Blood pressure diastolic 70 mmHg 2017-04-13 MEDICATIONS Medication Instructions Dosage Frequency Start Date End Date Duration Status ibuprofen Active Aspirin Active Azithromycin 250 MG Orally Once a day 2 tablets on the first day, then 1 tablet daily for 4 days 24h 4 days Active Hyoscyamine Active Meclizine HCl Active Avelox Active Calcium Active Strattera Active One-A-Day Bone Strength Active Cyproheptadine HCl Active Trimethobenzamide HCl Active Tramadol HCl Active Toviaz Active Montelukast Sodium Active Topiramate Active Ondansetron Active Carafate Active Butalbital-Acetaminophen Active Diphenhydramine-Acetaminophen Active Premarin Active Dicyclomine HCl Active Verapamil HCl ER Active Amitriptyline & Diet Manage Pr Active Penicillin V Potassium Active Lamotrigine Active Phenytoin Active Omeprazole Active Cephalexin Active Meclizine HCl Active Elmiron Active Decongestant Active Simvastatin Active EpiPen 2-Eren Active RESULTS No Results PROCEDURES Procedure Date Ordered Result Body Site LTD ORAL EVALUATION - PROBLEM FOCUS April 13, 2017 INTRAORL-PERIAPICAL 1 FILM [id number] April 13, 2017 INTRAORL-PERIAPICAL EA ADD FILM April 13, 2017 INSTRUCTIONS MEDICATIONS ADMINISTERED No Known Medications [...]
--- OUTSIDE RECORDS SUMMARY | 2018-06-16 09:39 | XMS REPORT | Continuity of Care Document ---
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 CANDIDIASIS 10/04/2017 JAY LANZA MD Ot L98.9 DISORDER OF THE SKIN AND SUBCUTANEOUS TI 10/04/2017 CINDY GUADALUPE FACC, ALI FACP CCDS Ot 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 10/05/2017 YU SAMUEL [employer] Ot F39 UNSPECIFIED MOOD [AFFECTIVE] DISORDER 10/05/2017 YU SAMUEL Ot F90.0 ATTN-DEFCT HYPERACTIVITY DISORDER, PREDO 10/05/2017 YU SAMUEL Ot K58.2 MIXED IRRITABLE BOWEL SYNDROME 10/10/2017 CINDY GUADALUPE FACC, ALI FACP CCDS Ot I73.9 PERIPHERAL VASCULAR DISEASE, UNSPECIFIED 10/14/2017 IVA LAL MD Ot I87.2 VENOUS INSUFFICIENCY (CHRONIC) (PERIPHER 10/14/2017 IVA LAL MD Ot Z01.818 ENCOUNTER FOR OTHER PREPROCEDURAL EXAMIN 10/14/2017 Ot 278.00 OBESITY, NOS 10/14/2017 Ot 285.9 ANEMIA NOS 10/14/2017 Ot 311 DEPRESSIVE DISORDER NEC 10/14/2017 Ot 780.79 OTH MALAISE FATIGUE 10/14/2017 Ot 789.00 ABDOMINAL PAIN, UNSPECIFIED SITE 10/14/2017 Ot V15.88 HISTORY OF FALL 10/14/2017 Ot V58.61 ANTICOAGULANTS,LT,CURRENT USE 10/14/2017 Ot V58.69 OTH MED,LT, CURRENT USE 10/14/2017 Ot V58.81 FIT/ADJ VASCULAR CATHETER 10/14/2017 GILDARDO ROSENTHAL MD Ot N64.89 OTHER SPECIFIED DISORDERS OF BREAST 10/14/2017 GILDARDO ROSENTHAL MD Ot Z45.2 ENCOUNTER FOR ADJUSTMENT AND MANAGEMENT 10/17/2017 IVA LAL MD Ot I87.2 VENOUS INSUFFICIENCY (CHRONIC) (PERIPHER 10/17/2017 HALI GUADALUPE, IVA White Ot Z01.818 ENCOUNTER FOR OTHER PREPROCEDURAL EXAMIN 10/19/2017 HALI GUADALUPE, IVA White Ot E78.5 HYPERLIPIDEMIA, UNSPECIFIED 10/19/2017 IVA LAL MD Ot F41.9 ANXIETY DISORDER, UNSPECIFIED 10/19/2017 HALI GUADALUPE, IVA White Ot F90.9 ATTENTION-DEFICIT HYPERACTIVITY DISORDER 10/19/2017 HALI GUADALUPE, IVA White Ot G40.909 EPILEPSY, UNSP, NOT INTRACTABLE, WITHOUT 10/19/2017 HALI GUADALUPE, IVA White Ot G43.909 MIGRAINE, UNSP, NOT INTRACTABLE, WITHOUT 10/19/2017 IVA LAL MD Ot I10 ESSENTIAL (PRIMARY) HYPERTENSION 10/19/2017 HALI GUADALUPE, IVA White Ot J45.909 UNSPECIFIED ASTHMA, UNCOMPLICATED 10/19/2017 IVA LAL MD Ot K21.9 GASTRO-ESOPHAGEAL REFLUX DISEASE WITHOUT 10/19/2017 IVA LAL MD Ot Z45.2 ENCOUNTER FOR ADJUSTMENT AND MANAGEMENT 10/19/2017 IVA LAL MD Ot Z79.82 AOC DIRECTOR INTELLIGENCE OFFICER (CURRENT) USE OF ASPIRIN 10/19/2017 IVA LAL MD Ot Z79.899 OTHER AOC DIRECTOR INTELLIGENCE OFFICER (CURRENT) DRUG THERAPY 10/19/2017 IVA LAL MD Ot Z88.1 ALLERGY STATUS TO OTHER ANTIBIOTIC AGENT 10/19/2017 IVA LAL MD Ot Z88.2 ALLERGY STATUS TO SULFONAMIDES STATUS 10/19/2017 IVA LAL MD Ot Z88.5 ALLERGY STATUS TO NARCOTIC AGENT STATUS 10/19/2017 IVA LAL MD Ot Z88.8 ALLERGY STATUS TO [facility] DRUG/MEDS/BIOL SUB 10/19/2017 Ot 278.00 OBESITY, NOS 10/19/2017 Ot 285.9 ANEMIA NOS 10/19/2017 Ot 311 DEPRESSIVE DISORDER NEC 10/19/2017 Ot 780.79 OTH MALAISE FATIGUE 10/19/2017 Ot 789.00 ABDOMINAL PAIN, UNSPECIFIED SITE 10/19/2017 Ot V15.88 HISTORY OF FALL 10/19/2017 Ot V58.61 ANTICOAGULANTS,LT,CURRENT USE 10/19/2017 Ot V58.69 OTH MED,LT, CURRENT USE 10/19/2017 Ot V58.81 FIT/ADJ VASCULAR CATHETER 10/19/2017 GILDARDO ROSENTHAL MD Ot N64.89 OTHER SPECIFIED DISORDERS OF BREAST 10/19/2017 GILDARDO ROSENTHAL MD Ot Z45.2 ENCOUNTER FOR ADJUSTMENT AND MANAGEMENT 10/20/2017 IVA LAL MD Ot E78.5 HYPERLIPIDEMIA, UNSPECIFIED 10/20/2017 IVA LAL MD Ot F41.9 ANXIETY DISORDER, UNSPECIFIED 10/20/2017 IVA LAL MD Ot F90.9 ATTENTION-DEFICIT HYPERACTIVITY DISORDER 10/20/2017 IVA LAL MD Ot G40.909 EPILEPSY, UNSP, NOT INTRACTABLE, WITHOUT 10/20/2017 IVA LAL MD Ot G43.909 MIGRAINE, UNSP, NOT INTRACTABLE, WITHOUT 10/20/2017 IVA LAL MD Ot I10 ESSENTIAL (PRIMARY) HYPERTENSION 10/20/2017 IVA LAL MD Ot J45.909 UNSPECIFIED ASTHMA, UNCOMPLICATED 10/20/2017 IVA LAL MD Ot K21.9 GASTRO-ESOPHAGEAL REFLUX DISEASE WITHOUT 10/20/2017 IVA LAL MD Ot Z45.2 ENCOUNTER FOR ADJUSTMENT AND MANAGEMENT 10/20/2017 IVA LAL MD Ot Z79.82 CORRECTION (CURRENT) USE OF ASPIRIN 10/20/2017 IVA LAL MD Ot Z79.899 OTHER AOC DIRECTOR INTELLIGENCE OFFICER (CURRENT) DRUG THERAPY 10/20/2017 IVA LAL MD Ot Z88.1 ALLERGY STATUS TO OTHER ANTIBIOTIC AGENT 10/20/2017 IVA LAL MD Ot Z88.2 ALLERGY STATUS TO SULFONAMIDES STATUS 10/20/2017 IVA LAL MD Ot Z88.5 ALLERGY STATUS TO NARCOTIC AGENT STATUS 10/20/2017 IVA LAL MD Ot Z88.8 ALLERGY STATUS TO OT DRUG/MEDS/BIOL SUB 10/27/2017 YU SAMUEL [employer] Ot F39 UNSPECIFIED MOOD [AFFECTIVE] DISORDER 10/27/2017 YU SAMUEL [employer] Ot F90.0 ATTN-DEFCT HYPERACTIVITY DISORDER, PREDO 10/27/2017 YU SAMUEL Ot K58.2 MIXED IRRITABLE BOWEL SYNDROME 11/01/2017 CINDY GUADALUPE FACC, ALI FACP CCDS Ot I73.9 PERIPHERAL VASCULAR DISEASE, UNSPECIFIED 11/02/2017 JIMMIE YU Mikala [employer] Ot F39 UNSPECIFIED MOOD [AFFECTIVE] DISORDER 11/02/2017 UY SAMUEL [employer] Ot F90.0 ATTN-DEFCT HYPERACTIVITY DISORDER, PREDO 11/02/2017 YU SAMUEL [employer] Ot K58.2 MIXED IRRITABLE BOWEL SYNDROME 11/07/2017 CINDY GUADALUPE [facility] CCDS Ot I73.9 PERIPHERAL VASCULAR DISEASE, UNSPECIFIED 12/15/2017 JIMMIE YU Mikala [employer] Ot R56.9 UNSPECIFIED CONVULSIONS 12/16/2017 YU SAMUEL [employer] Ot R56.9 UNSPECIFIED CONVULSIONS 12/21/2017 YU SAMUEL [employer] Ot R56.9 UNSPECIFIED CONVULSIONS 01/13/2018 YU SAMUEL [employer] Ot R56.9 UNSPECIFIED CONVULSIONS 02/16/2018 YU SAMUEL [employer] Ot R56.9 UNSPECIFIED CONVULSIONS 02/16/2018 YU SAMUEL [employer] Ot R56.9 UNSPECIFIED CONVULSIONS 02/19/2018 YU SAM[employer]EL [employer] Ot R56.9 UNSPECIFIED CONVULSIONS 03/07/2018 CINDY GUADALUPE [facility] CCDS Ot R00.2 PALPITATIONS 03/10/2018 CHASITY AWAD APRN Ot F41.9 ANXIETY DISORDER, UNSPECIFIED 03/10/2018 CHASITY AWAD APRN Ot F90.9 ATTENTION-DEFICIT HYPERACTIVITY DISORDER 03/10/2018 CHASITY AWAD APRN Ot G40.909 EPILEPSY, UNSP, NOT INTRACTABLE, WITHOUT 03/10/2018 CHASITY AWAD APRN Ot G43.909 MIGRAINE, UNSP, NOT INTRACTABLE, WITHOUT 03/10/2018 CHASITY AWAD APRN Ot I10 ESSENTIAL (PRIMARY) HYPERTENSION 03/10/2018 CHSAITY AWAD APRN Ot J45.909 UNSPECIFIED ASTHMA, UNCOMPLICATED 03/10/2018 CHASITY AWAD APRN Ot M54.5 LOW BACK PAIN 03/10/2018 CHASITY AWAD APRN Ot R40.2142 COMA SCALE, EYES OPEN, SPONTANEOUS, EMR 03/10/2018 CHSAITY AWAD APRN Ot R40.2252 COMA SCALE, BEST VERBAL RESPONSE, ORIENT 03/10/2018 CHASITY AWAD APRN Ot R40.2362 COMA SCALE, BEST MOTOR RESPONSE, OBEYS C 03/10/2018 CHASITY AWAD APRN Ot S00.03XA CONTUSION OF SCALP, INITIAL ENCOUNTER 03/10/2018 CHASITY AWAD APRN Ot S30.0XXA CONTUSION OF LOWER BACK AND PELVIS, INIT 03/10/2018 CHASITY AWAD APRN Ot W10.8XXA FALL (ON) (FROM) OTHER STAIRS AND STEPS, 03/10/2018 CHASITY AWAD APRN Ot Y92.[address] OF OCCURRENCE OF 03/10/2018 CHASITY AWAD APRN Ot Z79.82 AOC DIRECTOR INTELLIGENCE OFFICER (CURRENT) USE OF ASPIRIN 03/10/2018 CHASITY AWAD APRN Ot Z87.19 PERSONAL HISTORY OF OTHER DISEASES OF 03/10/2018 CHASITY AWAD APRN Ot Z88.1 ALLERGY STATUS TO OTHER ANTIBIOTIC AGENT 03/10/2018 CHASITY AWAD APRN Ot Z88.2 ALLERGY STATUS TO SULFONAMIDES STATUS 03/10/2018 CHASITY AWAD APRN Ot Z88.5 ALLERGY STATUS TO NARCOTIC AGENT STATUS 03/10/2018 CHASITY AWAD APRN Ot Z88.8 ALLERGY STATUS TO OTH DRUG/MEDS/BIOL SUB 03/10/2018 CHASITY AWAD APRN Ot Z90.710 ACQUIRED ABSENCE OF BOTH CERVIX AND UTER 03/13/2018 CHASITY AWAD APRN Ot F41.9 ANXIETY DISORDER, UNSPECIFIED 03/13/2018 CHASITY AWAD APRN Ot F90.9 ATTENTION-DEFICIT HYPERACTIVITY DISORDER 03/13/2018 CHASITY AWAD APRN Ot G40.909 EPILEPSY, UNSP, NOT INTRACTABLE, WITHOUT 03/13/2018 CHASITY AWAD APRN Ot G43.909 MIGRAINE, UNSP, NOT INTRACTABLE, WITHOUT 03/13/2018 CHASITY AWAD APRN Ot I10 ESSENTIAL (PRIMARY) HYPERTENSION 03/13/2018 CHASITY AWAD APRN Ot J45.909 UNSPECIFIED ASTHMA, UNCOMPLICATED 03/13/2018 CHASITY AWAD APRN Ot M54.5 LOW BACK PAIN 03/13/2018 CHASITY AWAD APRN Ot R40.2142 COMA SCALE, EYES OPEN, SPONTANEOUS, EMR 03/13/2018 CHASITY AWAD APRN Ot R40.2252 COMA SCALE, BEST VERBAL RESPONSE, ORIENT 03/13/2018 CHASITY AWAD APRN Ot R40.2362 COMA SCALE, BEST MOTOR RESPONSE, OBEYS C 03/13/2018 CHASITY AWAD APRN Ot S00.03XA CONTUSION OF SCALP, INITIAL ENCOUNTER 03/13/2018 CHASITY AWAD APRN Ot S30.0XXA CONTUSION OF LOWER BACK AND PELVIS, INIT 03/13/2018 CHASITY AWAD APRN Ot W10.8XXA FALL (ON) (FROM) OTHER STAIRS AND STEPS, 03/13/2018 CHASITY AWAD APRN Ot Y92.[address] OF OCCURRENCE OF 03/13/2018 CHASITY AWAD APRN Ot Z79.82 AOC DIRECTOR INTELLIGENCE OFFICER (CURRENT) USE OF ASPIRIN 03/13/2018 CHASITY AWAD APRN Ot Z87.19 PERSONAL HISTORY OF OTHER DISEASES OF 03/13/2018 CHASITY AWAD APRN Ot Z88.1 ALLERGY STATUS TO OTHER ANTIBIOTIC AGENT 03/13/2018 CHASITY AWAD APRN Ot Z88.2 ALLERGY STATUS TO SULFONAMIDES STATUS 03/13/2018 CHASITY AWAD APRN Ot Z88.5 ALLERGY STATUS TO NARCOTIC AGENT STATUS 03/13/2018 CHASITY AWAD APRN Ot Z88.8 ALLERGY STATUS TO OTH DRUG/MEDS/BIOL SUB 03/13/2018 CHASITY AWAD APRN Ot Z90.710 ACQUIRED ABSENCE OF BOTH CERVIX AND UTER 03/23/2018 YU SAMUEL [employer] Ot R56.9 UNSPECIFIED CONVULSIONS 03/24/2018 YU SAMUEL [employer] Ot R56.9 UNSPECIFIED CONVULSIONS 03/30/2018 CINDY GUADALUPE [facility], ALI FACP CCDS Ot R00.2 PALPITATIONS 04/04/2018 CINDY GUADALUPE FAC, ALI FACP CCDS Ot R00.2 PALPITATIONS 04/17/2018 YU SAMUEL [employer] Ot R56.9 UNSPECIFIED CONVULSIONS 04/20/2018 YU SAMUEL [employer] Ot R56.9 UNSPECIFIED CONVULSIONS 04/20/2018 YU SAMUEL [employer] Ot R56.9 UNSPECIFIED CONVULSIONS 04/20/2018 YU SAM[employer]EL [employer] Ot R56.9 UNSPECIFIED CONVULSIONS 04/20/2018 ZEFERINO GUADALUPEGILDARDO Ot 786.50 CHEST PAIN NOS 04/20/2018 Ot K21.9 GASTRO- ESOPHAGEAL REFLUX DISEASE WITHOUT 04/20/2018 Ot Z01.818 ENCOUNTER FOR OTHER PREPROCEDURAL EXAMIN 04/20/2018 GILDARDO ROSENTHAL MD Ot M25.561 PAIN IN RIGHT KNEE 04/20/2018 GILDARDO ROSENTHAL MD Ot M25.511 PAIN IN RIGHT SHOULDER 04/20/2018 GILDARDO ROSENTHAL MD Ot M25.561 PAIN IN RIGHT KNEE 04/20/2018 MIKE PINTO MD Ot R32 UNSPECIFIED URINARY INCONTINENCE 04/20/2018 MIKE PINTO MD Ot R35.0 FREQUENCY OF MICTURITION 04/20/2018 GILDARDO ROSENTHAL MD Ot M51.34 OTHER INTERVERTEBRAL DISC DEGENERATION, 04/20/2018 GILDARDO ROSENTHAL MD Ot M51.35 OTHER INTERVERTEBRAL DISC DEGENERATION, 04/20/2018 GILDARDO ROSENTHAL MD Ot M54.5 LOW BACK PAIN 04/20/2018 BRISEIDA CIFUENTES Ot M25.512 PAIN IN LEFT SHOULDER 04/20/2018 GILDARDO ROSENTHAL MD Ot Z12.31 ENCNTR SCREEN MAMMOGRAM FOR MALIGNANT NE 04/20/2018 GILDARDO ROSENTHAL MD Ot N64.89 OTHER SPECIFIED DISORDERS OF BREAST 04/20/2018 GILDARDO ROSENTHAL MD Ot N64.89 OTHER SPECIFIED DISORDERS OF BREAST 04/20/2018 GILDARDO ROSENTHAL MD Ot Z45.2 ENCOUNTER FOR ADJUSTMENT AND MANAGEMENT 04/20/2018 JAY LANZA MD Ot B37.89 OTHER SITES OF CANDIDIASIS 04/20/2018 JAY LANZA MD Ot L98.9 DISORDER OF THE SKIN AND SUBCUTANEOUS TI 04/20/2018 CINDY GUADALUPE [facility], ALI FACP CCDS Ot I73.9 PERIPHERAL VASCULAR DISEASE, UNSPECIFIED 04/20/2018 YU SAMUEL [employer] Ot F39 UNSPECIFIED MOOD [AFFECTIVE] DISORDER 04/20/2018 YU SAMUEL Ot F90.0 ATTN-DEFCT HYPERACTIVITY DISORDER, PREDO 04/20/2018 YU SAMUELP Ot K58.2 MIXED IRRITABLE BOWEL SYNDROME 04/20/2018 YU SAMUELP Ot R56.9 UNSPECIFIED CONVULSIONS 04/20/2018 CINDY GUADALUPE FAC, ALI FACP CCDS Ot R00.2 PALPITATIONS 04/20/2018 YU SAMUEL [employer] Ot R56.9 UNSPECIFIED CONVULSIONS 06/01/2018 YU SAMUEL [employer] Ot R56.9 UNSPECIFIED CONVULSIONS 06/01/2018 YU SAMUEL [employer] Ot R56.9 UNSPECIFIED CONVULSIONS Procedures Code [place] [address] PSYCH DIAGNOSTIC EVALUATION 01/30/2014 Results Test Result Range Complete urinalysis with reflex to culture - 05/17/16 13:33 Urine color determination YELLOW NRG Urine clarity determination VERY CLOUDY NRG Urine pH measurement by test strip 6 5-9 Specific gravity of urine by test strip 1.015 1.016- 1.022 Urine protein assay by test strip, semi-quantitative 3+ NEGATIVE Urine glucose detection by automated test strip NEGATIVE NEGATIVE Erythrocytes detection in urine sediment by light microscopy 5+ NEGATIVE Urine ketones detection by automated test strip NEGATIVE NEGATIVE Urine nitrite detection by test strip POSITIVE NEGATIVE Urine total bilirubin detection by test strip NEGATIVE NEGATIVE Urine urobilinogen measurement by automated test strip (mass/volume) NORMAL NORMAL Urine leukocyte esterase detection by dipstick 3+ NEGATIVE Automated urine sediment erythrocyte count by microscopy (number/high power field) > [HPF] NRG Automated urine sediment leukocyte count by microscopy (number/high power field ) TNTC NRG Bacteria detection in urine sediment by light microscopy TRACE NRG Squamous epithelial cells detection in urine sediment by light microscopy 2-5 NRG Crystals detection in urine sediment by light microscopy NONE NRG Casts detection in urine sediment by light microscopy NONE NRG Mucus detection in urine sediment by light microscopy NEGATIVE NRG Complete urinalysis with reflex to culture YES NRG Renal epithelial cells detection in urine sediment by light microscopy NONE NRG Bacterial urine culture - 05/17/16 13:33 Bacterial urine culture [id number] NRG COLONY COUNT <10,000 NRG FTX;REPORTABLE SENSITIVITY REPORTED 05/19/16 11:30 NRG URINE CULTURE RESULTS <10,000/ML NRG Bacterial susceptibility panel - 05/17/16 13:33 Gentamicin susceptibility test by minimum inhibitory concentration < = NRG Trimethoprim/sulfamethoxazole susceptibility test by minimum inhibitoryconcentration <= NRG Ampicillin susceptibility test by minimum inhibitory concentration 8 NRG Tobramycin susceptibility test by minimum inhibitory concentration < = NRG Cefazolin susceptibility test by minimum inhibitory concentration < = NRG Ceftriaxone susceptibility test by minimum inhibitory concentration <= NRG Ampicillin/sulbactam susceptibility test by minimum inhibitory concentration 4 NRG Piperacillin/tazobactam susceptibility test by minimum inhibitory concentration 8 NRG Ciprofloxacin susceptibility test by minimum inhibitory concentration <= NRG Meropenem susceptibility test by minimum inhibitory concentration < = NRG Nitrofurantoin susceptibility test by minimum inhibitory concentration <= NRG Aztreonam susceptibility test by minimum inhibitory concentration < = NRG Extended spectrum beta lactamase (ESBL) producing bacteria susceptibility test by minimum inhibitory concentration - NR Dilantin - 09/17/16 14:29 Dilantin 5.7 ug/mL 10.0-20.0 Hepatitis Panel, Acute - 11/19/16 14:45 Hep A Ab, IgM NEGATIVE NEGATIVE HBsAg Screen NEGATIVE NEGATIVE Hep B Core Ab, IgM NEGATIVE NEGATIVE Hep C Virus Ab <0.1 S/CO RATIO 0.0-0.9 Hepatic Panel - 04/25/17 15:02 Albumin 4.3 g/dL 3.6-5.1 ALP 217 U/L 35-130 ALT 23 U/L 6-45 AST 19 U/L 2-40 DBil 0.1 mg/dL 0.0-0.2 GGT 257 U/L 5-40 Globulin 2.2 g/dL 2.3-3.5 TBil 0.2 mg/dL 0.2-1.2 TP 6.5 g/dL 6.0-8.3 Thyroid Stimulating Hormone - 04/25/17 15:02 TSH 1.34 mIU/mL 0.32-5.00 Gram stain microscopy - 08/12/17 13:34 GRAM STAIN RESULT FEW WBC'S, NO BACTERIA OBSERVED NR Bacteria identification in wound by culture - 08/12/17 13:34 Bacteria identification in wound by culture [id number] NR FREE TEXT EXTERNAL ID/SENSITIVITY REPORTED 08/23/17 NRG QUANTITY OF GROWTH Scant Growth NR FREE TEXT ENTRY 2 BY [facility] NR Bacterial susceptibility panel - 08/12/17 13:34 Gentamicin susceptibility test by minimum inhibitory concentration < = NRG Trimethoprim/sulfamethoxazole susceptibility test by minimum inhibitoryconcentration <= NRG Tobramycin susceptibility test by minimum inhibitory concentration < = NRG Cefazolin susceptibility test by minimum inhibitory concentration R NRG Ceftriaxone susceptibility test by minimum inhibitory concentration <= NRG Piperacillin/tazobactam susceptibility test by minimum inhibitory concentration <= NRG Ciprofloxacin susceptibility test by minimum inhibitory concentration <= NRG Meropenem susceptibility test by minimum inhibitory concentration < = NRG Aztreonam susceptibility test by minimum inhibitory concentration < = NRG Bacterial susceptibility panel - 08/12/17 13:34 Gentamicin susceptibility test by minimum inhibitory concentration S NRG Trimethoprim/sulfamethoxazole susceptibility test by minimum inhibitoryconcentration S NRG Ampicillin susceptibility test by minimum inhibitory concentration S NRG Cefazolin susceptibility test by minimum inhibitory concentration S NRG Ceftriaxone susceptibility test by minimum inhibitory concentration S NRG Piperacillin/tazobactam susceptibility test by minimum inhibitory concentration S NRG Ciprofloxacin susceptibility test by minimum inhibitory concentration S NRG Meropenem susceptibility test by minimum inhibitory concentration S NRG Serum or plasma phenytoin measurement (mass/volume) - 10/04/17 15:06 Serum or plasma phenytoin measurement (mass/volume) 11.0 ug/mL 10.0-20.0 TSH - 10/13/17 14:46 TSH 1.88 mIU/L NRG Methicillin resistant Staphylococcus aureus (MRSA) screening culture - 08:55 MRSA SCREEN RESULT MRSA ISOLATED NRG GGT - 10/28/17 11:59 GGT 303 U/L 3-55 DILANTIN - 04/06/18 14:49 PHENYTOIN 16.7 mg/L 10.0-20.0 Encounters ACCT No. Visit Date/Time Discharge Status Pt. Type Provider Facility Loc./Unit Complaint [id number] 01/30/2014 12:33:00 01/30/2014 23:59:59 CLS Outpatient CRISTAL SULLIVAN, LISA Bah [id number] 04/25/2017 15:00:00 04/25/2017 23:59:00 DIS Outpatient Gildardo Rosenthal [id number] 11/19/2016 14:45:00 11/19/2016 23:59:00 DIS Outpatient Gildardo Rosenthal [id number] 09/17/2016 14:28:00 09/17/2016 23:59:00 DIS Outpatient Gildardo Rosenthal [id number] 06/22/2016 13:53:00 07/08/2016 11:40:00 DIS Outpatient Gildardo Rosenthal [id number] 06/15/2018 05:41:00 06/15/2018 09:40:00 DIS Outpatient MARGO FRANCISCO MD [facility] PREOP COLONOSCOPY/EGD [id number] 06/01/2018 09:44:00 06/01/2018 23:59:59 CLS Outpatient YU SAMUEL [facility] VASCULAR ACCESS DEVICE [id number] 03/10/2018 12:23:00 03/10/2018 14:28:00 DIS Emergency CHASITY AWAD AMANDA [facility] ER FALL/HEAD/BACK [id number] 03/06/2018 10:18:00 03/06/2018 23:59:59 CLS Outpatient LOLY WHITE MD, FACC, FACP CCDS [facility] CARD PALPITATIONS [id number] 02/16/2018 11:18:00 02/19/2018 00:01:00 DIS Outpatient YU SAMUEL [facility] VASCULAR ACCESS DEVICE [id number] 10/19/2017 08:22:00 10/19/2017 13:58:00 DIS Outpatient IVA LAL MD [facility] NON-FUNCTIONING PORT, POOR VENOUS ACCESS [id number] 10/14/2017 05:31:00 10/14/2017 12:00:00 DIS Outpatient IVA LAL MD [facility] PREOP NON-FUNCTIONING PORT,POOR VENOUS ACCESS [id number] 10/04/2017 12:44:00 10/04/2017 23:59:59 CLS Outpatient YU SAMUEL [facility] LAB F39 F90.0 K58.2 R56.9 [id number] 10/04/2017 12:42:00 10/04/2017 23:59:59 CLS Outpatient LOLY WHITE MD, FACC, FACP CCDS [facility] RAD CLAUDICATION [id number] 08/16/2017 12:32:00 08/16/2017 23:59:59 CLS Outpatient JAY LANZA MD [facility] WOUNDCARE [id number] 08/12/2017 12:33:00 08/12/2017 14:29:00 DIS Emergency AROLDO AUGUSTE MD [facility] ER COMPLAINS OF CYST IN STOMACH [id number] 08/11/2017 20:00:00 08/12/2017 06:49:00 DIS Outpatient GILDARDO ROSENTHAL MD [facility] SLEEP HYPOXIA, OBSERVED APNEAS [id number] 05/18/2017 00:15:00 05/18/2017 23:59:59 CLS Preadmit GILDARDO ROSENTHAL MD [facility] CORRECTION GROSHONG PLACEMENT [id number] 02/16/2017 12:30:00 05/17/2017 00:01:00 DIS Outpatient GILDARDO ROSENTHAL MD [facility] CORRECTION GROSHONG PLACEMENT [id number] 02/16/2017 12:25:00 02/16/2017 23:59:59 CLS Outpatient GILDARDO ROSENTHAL MD [facility] RAD MEDIAL R BREAST ASYMMETRY N64.89 [id number] 01/21/2017 12:49:00 01/21/2017 23:59:59 CLS Outpatient GILDARDO ROSENTHAL MD [facility] RAD Z12.31 [id number] 11/24/2016 11:43:00 11/24/2016 23:59:59 CLS Outpatient BRISEIDA CIFUENTES [facility] RAD 2 MONTH HX LT SHOULDER PAIN [id number] 11/14/2016 16:21:00 11/14/2016 17:25:00 DIS Emergency VINCENT GOMEZ MD [facility] ER HEAD INJ [id number] 06/11/2016 11:35:00 06/11/2016 23:59:59 CLS Outpatient GILDARDO ROSENTHAL MD [facility] RAD CHRONIC BACK PAIN [id number] 05/17/2016 13:23:00 05/17/2016 23:59:59 CLS Outpatient MIKE PINTO MD [facility] LAB INC AWARENESS AND FREQUENCY [id number] 03/19/2016 11:35:00 03/19/2016 23:59:59 CLS Outpatient GILDARDO ROSENTHAL MD [facility] RAD KNEE PAIN,SHOULDER PAIN [id number] 03/12/2016 13:07:00 03/12/2016 23:59:59 CLS Outpatient GILDARDO ROSENTHAL MD [facility] RAD RT KNEE PAIN [id number] 01/29/2016 12:24:00 01/29/2016 14:05:00 DIS Emergency ARAMIS RUBIO [facility] ER HEAD LAC [id number] 10/22/2015 10:16:00 10/22/2015 13:35:00 DIS Outpatient MARGO FRANCISCO MD [facility] SDC REFLEX [id number] 03/04/2015 11:49:00 03/04/2015 23:59:59 CLS Outpatient GILDARDO ROSENTHAL MD [facility] RAD L RIB PAIN [id number] 10/09/2014 08:32:00 10/09/2014 23:59:59 CLS Outpatient GILDARDO ROSENTHAL MD [facility] LAB ELEVATED LFT,HYPOXIA [id number] 04/19/2014 11:55:00 04/19/2014 13:51:00 DIS Emergency CHASITY AWAD [employer]FF[employer] 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 [facility] ER FALL [id number] 11/19/2013 10:04:00 11/19/2013 23:59:59 CLS Outpatient GILDARDO ROSENTHAL MD [facility] RAD ABD PAIN, [id number] 11/13/2013 14:16:00 11/13/2013 23:59:59 CLS Outpatient GILDARDO ROSENTHAL MD [facility] RAD ABD PAIN [id number] 08/31/2013 12:25:00 08/31/2013 23:59:59 CLS Outpatient GILDARDO ROSENTHAL MD [facility] RAD COUGH PROD [id number] 08/02/2013 08:28:00 08/02/2013 23:59:59 CLS Outpatient CINDY GUADALUPE FACCLOLY FACP CCDS [facility] RAD ANGINA,SOB [id number] 07/12/2013 16:42:00 07/12/2013 23:59:59 CLS Outpatient [id number] 06/14/2013 16:35:00 06/14/2013 23:59:59 CLS Outpatient [id number] 05/22/2013 13:55:00 05/22/2013 17:00:00 DIS Emergency ARAMIS RUBIO [facility] ER RIGHT FOOT INJURY [id number] 06/16/2018 11:00:00 PEN Preadmit MARGO FRANCISCO MD [facility] ENDO DIARRHEA/DYSPHAGIA [id number] 10/16/2015 16:33:00 Document Registration [id number] 09/27/2012 00:00:00 Document Registration [id number] 08/10/2012 11:47:00 Document Registration [id number] 04/25/2012 11:00:00 Document Registration [id number] 12/29/2011 13:35:00 Document Registration [id number] 10/26/2011 09:23:00 Document Registration [id number] 10/26/2011 09:17:00 Document Registration [id number] 09/14/2011 12:15:00 Document Registration [id number] 07/26/2011 15:13:00 Document Registration [id number] 07/23/2011 11:19:00 Document Registration [id number] 05/26/2011 10:56:00 Document Registration [id number] 03/04/2011 17:57:00 Document Registration [id number] 03/02/2011 11:33:00 Document Registration [id number] 01/18/2011 12:31:00 Document Registration [id number] 01/18/2011 11:47:00 Document Registration [id number] 09/28/2010 08:43:00 Document Registration [id number] 09/28/2010 08:35:00 Document Registration [id number] 09/28/2010 08:31:00 Document Registration [id number] 10/25/2009 12:21:00 Document Registration [id number] 07/12/2008 12:30:00 Document Registration [id number] 05/01/2018 10:20:00 05/01/2018 23:59:59 CLS Outpatient YU SAMUEL APRN [facility] [id number] 04/06/2018 15:00:00 Document Registration [id number] 10/28/2017 11:00:00 Document Registration [id number] 10/13/2017 14:20:00 Document Registration
[2018-06-16 09:40] VITALS: BP 126/44
[2018-06-16] MEDS ORDERED: HURRICAINE EXT TUBE (BENZOCAINE) XX PRN (09:45)
[2018-06-16] MEDS ORDERED: LACTATED RINGERS 1,000 ML IV ONE (09:55)
[2018-06-16] MEDS ORDERED: PROPOFOL INJECTION 50 ML IV ONE ×2 (10:19→10:58)
[2018-06-16] MEDS ORDERED: MIDAZOLAM 5 MG/5 ML (VERSED) VIAL ONE (10:20)
[2018-06-16] MEDS ORDERED: HURRICAINE EXT TUBE (BENZOCAINE) ONE (10:23)
--- NOTE | 2018-06-16 11:28 | Conscious Sedation/ASA ---
Conscious Sedation Pre-Proced Time Reviewed: 10:00 ASA Class: 2 Airway Mallampati Classification: ([place] appropriate class) I. II. III, IV Lungs Heart ASA score ASA 1: a normal healthy patient ASA 2: a patient with a mild systemic disease (mid diabetes, controlled hypertension, obesity ASA 3: a patient with a severe systemic disease that limits activity (angina , COPD, prior Myocardial infarction) ASA 4: a patient with an incapacitating disease that is a constant threat to life (CHF, renal failure) ASA 5: a moribund patient not expected to survive 24 hrs. (ruptured aneurysm) ASA 6: a declared brain patient whose organs are being harvested. For emergent operations, add the letter E after the classification Grade 3 Sedation Plan: Analgesia, Amnesia, Plan communicated to team members, Discussed options with patient/fam, Discussed risks with patient/fam Note The patient is an appropriate candidate to undergo the planned procedure, sedation, and anesthesia. The patient immediately re-assessed prior to indication. MARGO FRANCISCO MD Jun 16, 2018 11:28 am
--- NOTE | 2018-06-16 11:29 | Progress Note-Pre Operative ---
Pre-Operative Progress Note H&P Reviewed The H&P was reviewed, patient examined and no changes noted. Date Seen by Provider: Jun 16, 2018 Time Seen by Provider: 10:00 Date H&P Reviewed: Jun 16, 2018 Time H&P Reviewed: 10:00 Pre-Operative Diagnosis: GERD, dysphagia, screening colonoscopy MARGO FRANCISCO MD Jun 16, 2018 11:29 am
--- NOTE | 2018-06-16 11:32 | Progress Note-Post Operative ---
Post-Operative Progess Note Surgeon (s)/Assistant Producer (s) Surgeon MARGO FRANCISCO MD Assistant Producer: none Pre-Operative Diagnosis GERD, dysphagia, screening colonoscopy Post-Operative Diagnosis reflux esophagitis(stage 2), mild distal esophageal stricture, intact wrap, mild gastritis. mild chronic stage 1 ext and int hemorrhoids. Procedure & Operative Findings Date of Procedure 06/16/18 Procedure Performed/Findings EGD with bx and dilatation. Colonoscopy. Anesthesia Type CS Estimated Blood Loss Estimated blood loss (mL): minimal Specimens/Packing Specimens Removed GE jxn, antrum MARGO FRANCISCO MD Jun 16, 2018 11:32 am
--- NOTE | 2018-06-16 11:34 | Discharge Inst-Surgical ---
D/C Lap Instructions-NOLAN Follow Up 5yrs or PRN Activity as tolerated High Fiber Diet 25g or more per day Avoid Alcohol, Caffeine, Spicy [place] and Acid foods. Drink 64 fluid oz or more of fluids per day. Symptoms to Report: Fever over 101 degree F, Nausea/Vomiting If any problems/questions: Contact your physician or go to Emergency Room MARGO FRANCISCO MD Jun 16, 2018 11:34 am
[2018-06-16 11:35] VITALS: BP 148/75
--- NOTE | 2018-06-16 11:41 | Anesthesia-General Post-Op ---
MAC Patient Condition Mental Status/LOC: Same as Preop Cardiovascular: Satisfactory Nausea/Vomiting: Absent Respiratory: Satisfactory Pain: Controlled Complications: Absent Post Op Complications Complications None Follow Up Care/Instructions Patient Instructions None needed. Anesthesiology Discharge Order Discharge Order Patient is doing well, no complaints, stable vital signs, no apparent adverse anesthesia problems. No complications reported per nursing. RAMIRO GARVEY CRNA Jun 16, 2018 11:41
[2018-06-16] MEDS ORDERED: ONDANSETRON 4 MG/2 ML (SDV) Z0FRAN IV PRN (11:45)
[2018-06-16] MEDS ORDERED: ACETAMINOPHEN 325 MG TABLET PO PRN (11:45)
[2018-06-16] MEDS ORDERED: morphine INJ 10 MG/ML 1ML (SYR OR VIAL) IV PRN (11:45)
[2018-06-16] MEDS ORDERED: HYDROcodone/APAP 5 MG/325 MG (LORTAB) TAB PO PRN (11:45)
[2018-06-16 12:05] VITALS: BP 113/83
[2018-06-16 13:05] VITALS: BP 113/83
--- NOTE | 2018-06-16 15:19 | OPERATIVE REPORT ---
DATE OF SERVICE: 06/16/2018 ATTENDING PRIMARY MAT MACHINE TENDER: PEYMAN Thompson PREOPERATIVE DIAGNOSES: Gastroesophageal reflux disease, dysphagia, screening colonoscopy. POSTOPERATIVE DIAGNOSES: Reflux esophagitis stage II, mild distal esophageal stricture, most likely secondary to her previous antireflux procedure. Intact previous wrap, mild gastritis. Chronic stage I external and internal hemorrhoids. Remainder of the colon and rectum were normal. PROCEDURE: EGD with biopsy and balloon dilatation and colonoscopy. SURGEON: Margo Francisco MD ANESTHESIA: Conscious sedation. ESTIMATED BLOOD LOSS: Minimal. FINDINGS: EGD, reflux esophagitis stage II with no ulcerations. There was a stricture; however, this is most likely postsurgical. The previous hiatal hernia repair and antireflux procedure is intact with no recurrence of hiatal hernia. Mild gastritis. No formal ulcerations. No distal obstructions. Colonoscopy: Chronic stage I external and internal hemorrhoids. The remainder of the rectum and colon were normal. DISPOSITION: The patient tolerated the procedure well. INDICATIONS: The patient is a 42-year-old female, who has had a longstanding history of gastroesophageal reflux disease. She has undergone multiple EGDs in the past. She was found to have a hiatal hernia and underwent a hiatal hernia repair as well as a Hill gastropexy approximately 15 years ago. Since that time, she has done better from a reflux standpoint; however, has had intermittent episodes of dysphagia. She has undergone previous EGD as well as balloon dilatations in the past. She reports that she has had recurrence of symptoms with substernal pressure sensation after eating some types of solid foods that may be dry or lean meats. She states that this will either come up or eventually reduce on its own. She is also in need of a screening colonoscopy. She reports that her last colonoscopy was approximately 10 years ago. She does not report any major issues with diarrhea nor constipation as well as no red blood per rectum nor any dark tarry stools. She does have a family history of other cancers. DESCRIPTION OF PROCEDURE: The patient was brought to the endoscopy suite, laid in left lateral decubitus position. After adequate IV pain and sedating medications and conscious sedation anesthesia, the mouthpiece was applied. The endoscope was placed in the mouth, visualizing the pharynx and hypopharyngeal region. Vocal cords, epiglottis and vallecula identified and appeared to be normal. Endoscope was then gently intubated. Esophageal opening and esophagus insufflated. The endoscope was then advanced through the first, second and third portions of the esophagus at the level of the GE junction, a reflux esophagitis stage II identified. There were no ulcerations identified; however, there appeared to be anatomical changes consistent with a stricture from previous surgery. A biopsy was taken of the GE junction with forceps with visualization of good hemostasis. The endoscope was then easily advanced in the stomach and endoscope retroflexed visualizing an intact previous hiatal hernia repair and wrapped with no recurrence. There was a mild gastritis noted towards the stomach antrum. There were no ulcers, polyps or any neoplasms identified. A biopsy was taken of the stomach antrum for H. pylori with visualization of good hemostasis. The endoscope was then advanced to the pylorus and the first and second portion of the duodenum, which appeared normal with no distal obstructions. The endoscope was then slowly withdrawn while taking a second look and suctioning of residual air with no additional findings. The patient tolerated the procedure well. We will recommend continued medical management with smaller and more frequent meals, avoidance of eating at night as well as head elevation while lying supine. She also needs to avoid caffeinated beverages, spicy, greasy and acidic foods as well as proceed with diet and exercise regimen to promote weight loss. Under the same anesthesia, we then proceeded with the colonoscopy portion of the procedure. A digital rectal examination was performed, which revealed chronic stage I external and internal hemorrhoids, not actively edematous nor inflamed and no bleeding. Normal sphincter tone was felt and no palpable masses. The endoscope was then intubated to the anus and the rectum was gently insufflated. The endoscope was then advanced through the valves of [place] in the rectum with no polyps or any neoplasms identified. We then proceeded through the sigmoid colon where no diverticulosis was identified. The endoscope was then advanced to the remainder of the descending, transverse and ascending colon to the cecum. These segments were normal. There were no polyps or any neoplasms identified throughout the colon or rectum. The endoscope was then slowly withdrawn while taking a second look and suctioning of residual air with no additional findings. The patient tolerated the procedure well. We will recommend continued medical management with a high fiber diet with at least 25 to 30 grams of fiber per day as well as at least 64 fluid ounces of water daily to promote soft stools on a daily basis. She does have a strong family history of cancers in general and if she wishes to, she may proceed with followup colonoscopies every 5 years; however, if she is asymptomatic, she may wait longer. Job ID: [id number] DocumentID: [id number] Dictated Date: 06/16/2018 11:30:35 Clarifier Operator Date: 06/16/2018 15:18:56 Dictated By: MARGO FRANCISCO MD
== END 2018-06-16 13:15 | disposition home or self-care (01) ==
LOC: ENDO 09:17
PROVIDERS: ATTEND Surgery
DX: Z12.11 Encounter for screening for malignant neoplasm of colon (principal); K22.2 Esophageal obstruction; K21.0 Gastro-esophageal reflux disease with esophagitis; K29.70 Gastritis, unspecified, without bleeding; K64.0 First degree hemorrhoids; I10 Essential (primary) hypertension; J45.909 Unspecified asthma, uncomplicated; R56.9 Unspecified convulsions; E66.9 Obesity, unspecified; Z68.41 Body mass index [BMI] 40.0-44.9, adult; Z79.899 Other long term (current) drug therapy
CPT/HCPCS: 43239; 43249; G0121

== ENCOUNTER 2018-10-05 10:56 | Outpatient (RCR) | payer MEDICARE, MEDICAID ==
[2018-07-14 09:45] VITALS: BP 122/87
[2018-09-04 09:50] VITALS: BP 119/76
[~2018-10-05] VITALS: Ht 149.9 cm; Wt 93.0 kg
[2018-10-05 10:55] VITALS: BP 132/58
[~2018-10-05 10:56] MED LIST changes: +HEParin (CENTRAL IV FLUSH) 500 UNIT/5 ML SYR IV ONE; +HEParin (CENTRAL IV FLUSH) 500 UNIT/5 ML SYR ONE
[2018-10-05] MEDS ORDERED: HEParin (CENTRAL IV FLUSH) 500 UNIT/5 ML SYR ONE (11:13)
== END 2018-10-12 | disposition home or self-care (01) ==
LOC: SDC 10:56
PROVIDERS: ATTEND Nurse Practitioner Community Health
DX: R56.9 Unspecified convulsions (principal); Z45.2 Encounter for adjustment and management of vascular access device
CPT/HCPCS: 96523

== ENCOUNTER 2019-01-05 11:41 | Outpatient (RCR) | payer MEDICARE, MEDICAID ==
[2018-11-13 12:30] VITALS: BP 119/59
[~2019-01-05] VITALS: Ht 149.9 cm; Wt 93.0 kg
[2019-01-05] MEDS ORDERED: HEParin (CENTRAL IV FLUSH) 500 UNIT/5 ML SYR ONE (11:59)
[2019-01-05 12:34] VITALS: BP 119/59
== END 2019-02-11 | disposition home or self-care (01) ==
LOC: SDC 11:41
PROVIDERS: ATTEND Nurse Practitioner Community Health
DX: Z45.2 Encounter for adjustment and management of vascular access device (principal); R56.9 Unspecified convulsions
CPT/HCPCS: 96523

== ENCOUNTER 2019-04-09 11:00 | Outpatient (RCR) | payer MEDICARE, MEDICAID ==
[2019-02-12 13:05] VITALS: BP 125/60
[~2019-04-09] VITALS: Ht 149.9 cm; Wt 93.0 kg
[2019-04-09] MEDS ORDERED: HEParin (CENTRAL IV FLUSH) 500 UNIT/5 ML SYR ONE (11:11)
[2019-04-09 11:25] VITALS: BP 125/96
[2019-04-09] MEDS ORDERED: HEParin (CENTRAL IV FLUSH) 500 UNIT/5 ML SYR IV ONE (11:45)
== END 2019-05-13 | disposition home or self-care (01) ==
LOC: SDC 11:00
PROVIDERS: ATTEND Nurse Practitioner Community Health
DX: R56.9 Unspecified convulsions (principal); Z45.2 Encounter for adjustment and management of vascular access device
CPT/HCPCS: 96523

== ENCOUNTER 2019-07-31 09:23 | Outpatient (RCR) | payer MEDICARE, MEDICAID ==
[2019-06-05 10:20] VITALS: BP 128/73
[~2019-07-31] VITALS: Wt 88.5 kg
[~2019-07-31 09:23] MED LIST changes: -LAMO100T PO; +LAMO100T5 PO; +SIMV20TA26 PO; -TRAM50TA2 PO; +TRM50T PO
[2019-07-31 09:24] VITALS: BP 134/76
[2019-07-31] MEDS ORDERED: HEParin (CENTRAL IV FLUSH) 500 UNIT/5 ML SYR ONE (09:29)
[2019-07-31] MEDS ORDERED: HEParin (CENTRAL IV FLUSH) 500 UNIT/5 ML SYR IV ONE ×2 (10:00)
== END 2019-09-03 | disposition home or self-care (01) ==
LOC: SDC 09:23
PROVIDERS: ATTEND Nurse Practitioner Community Health
DX: Z45.2 Encounter for adjustment and management of vascular access device (principal); R56.9 Unspecified convulsions
CPT/HCPCS: 96523

== ENCOUNTER 2019-08-07 11:57 | Emergency (ER) | payer MEDICARE, MEDICAID ==
[~2019-08-07] VITALS: Ht 150 cm; Wt 109.0 kg
[~2019-08-07 11:57] MED LIST changes: -HEParin (CENTRAL IV FLUSH) 500 UNIT/5 ML SYR IV ONE; -HEParin (CENTRAL IV FLUSH) 500 UNIT/5 ML SYR ONE; +LAMO100T PO; -LAMO100T5 PO; -SIMV20TA26 PO; +TRAM50TA2 PO; -TRM50T PO
[2019-08-07] MEDS ORDERED: ALPRAZolam 0.5 MG (XANAX) TAB PO SCH (12:15)
[2019-08-07] MEDS ORDERED: IBUPROFEN 800 MG (MOTRIN) TAB PO ONE (12:15)
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
[2019-08-07] MEDS ORDERED: LORazepam INJ 2 MG/ML (ATIVAN) VIAL ONE (12:44)
--- NOTE | 2019-08-07 13:25 | Diagnostic Imaging Report ---
PROCEDURE: CT head without contrast. TECHNIQUE: Multiple contiguous axial images were obtained through the brain without the use of intravenous contrast. Auto Exposure Controls were utilized during the CT exam to meet ALARA standards for radiation dose reduction. INDICATION: Fall. Posterior head injury. COMPARISON: CT head without contrast 03/10/2018. FINDINGS: Stable encephalomalacia in the left parietal and bilateral occipital lobes. No CT evidence of acute territorial infarction. No intracranial hemorrhage, mass effect, hydrocephalus or extra-axial fluid collections. No fractures. The visualized paranasal sinuses and mastoids are clear. IMPRESSION: No acute intracranial CT findings. Dictated by: Dictated on workstation # [id number]
[2019-08-07 13:41] VITALS: BP 138/89
[2019-08-07] MEDS ORDERED: TETANUS,DIPTH,PERTUSS P/F (BOOSTRIX) 0.5 ML VIAL IM ONE (13:45)
== END 2019-08-07 13:41 | disposition home or self-care (01) ==
LOC: EDUNIT# 11:57 → ER 11:58
DX: S01.01XA Laceration without foreign body of scalp, initial encounter (principal); J45.909 Unspecified asthma, uncomplicated; I10 Essential (primary) hypertension; G43.909 Migraine, unspecified, not intractable, without status migrainosus; G40.909 Epilepsy, unspecified, not intractable, without status epilepticus; K58.9 Irritable bowel syndrome, unspecified; F90.9 Attention-deficit hyperactivity disorder, unspecified type; F41.9 Anxiety disorder, unspecified; Z90.710 Acquired absence of both cervix and uterus; Z23 Encounter for immunization; Z79.82 Long term (current) use of aspirin; Z79.52 Long term (current) use of systemic steroids; Z91.040 Latex allergy status; Z88.2 Allergy status to sulfonamides; Z88.0 Allergy status to penicillin; Z88.1 Allergy status to other antibiotic agents; Z88.5 Allergy status to narcotic agent; Z88.8 Allergy status to other drugs, medicaments and biological substances; W18.39XA Other fall on same level, initial encounter; W22.8XXA Striking against or struck by other objects, initial encounter
CPT/HCPCS: 70450; 90715

== ENCOUNTER 2019-09-14 13:13 | Outpatient (RCR) | payer MEDICARE, MEDICAID ==
[~2019-09-14] VITALS: Ht 149.9 cm; Wt 109.0 kg
[~2019-09-14 13:13] MED LIST changes: -LAMO100T PO; +LAMO100T5 PO; -MECL-106 PO; +MECL-149 PO; +MONT10TA26 PO; +SIMV20TA26 PO; -TRAM50TA2 PO; +TRM50T PO; +VERA120T15 PO
[2019-09-14] MEDS ORDERED: HEParin (CENTRAL IV FLUSH) 500 UNIT/5 ML SYR IV ONE (13:45)
[2019-09-14 13:50] VITALS: BP 122/91
== END 2019-12-13 | disposition home or self-care (01) ==
LOC: SDC 13:13
PROVIDERS: ATTEND Nurse Practitioner Community Health
DX: Z45.2 Encounter for adjustment and management of vascular access device (principal); R56.9 Unspecified convulsions
CPT/HCPCS: 96523

== ENCOUNTER → 2019-11-29 | Outpatient (CLI) | payer MEDICARE, MEDICAID ==
[~2019-11-29] MED LIST changes: +CATHETER FLUSH 10 ML SYR IV NR; +HEParin (CENTRAL IV FLUSH) 500 UNIT/5 ML SYR IV NR; +HEParin (CENTRAL IV FLUSH) 500 UNIT/5 ML SYR ONE
[2019-11-29 11:42] VITALS: BP 121/53
== END ==
LOC: SDC 10:24
PROVIDERS: ATTEND Nurse Practitioner Community Health
DX: R56.9 Unspecified convulsions (principal)
CPT/HCPCS: 36415; 36591; 80185

== ENCOUNTER 2020-03-14 15:50 | Emergency (ER) | payer MEDICARE, MEDICAID ==
[~2020-03-14] VITALS: Ht 152 cm; Wt 113.0 kg
[~2020-03-14 15:50] MED LIST changes: -CATHETER FLUSH 10 ML SYR IV NR; -HEParin (CENTRAL IV FLUSH) 500 UNIT/5 ML SYR IV NR; -HEParin (CENTRAL IV FLUSH) 500 UNIT/5 ML SYR ONE
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
--- NOTE | 2020-03-14 16:52 | Diagnostic Imaging Report ---
INDICATION: Fell from chair. Right foot pain. FINDINGS: Three views right foot. There are no fractures or dislocations. Articulating surfaces are smooth. Joint spaces are well maintained. IMPRESSION: Negative right foot. Dictated by: Dictated on workstation # [id number]
--- NOTE | 2020-03-14 16:53 | Diagnostic Imaging Report ---
INDICATION: Elbow pain. EXAMINATION: Left elbow, 03/14/2020. FINDINGS: Three views of the elbow. There is an overlying peripheral line obscuring portions of the osseous structures. No fracture or dislocation is seen. There is no significant joint effusion. IMPRESSION: No acute process. Dictated by: Dictated on workstation # [id number]
--- NOTE | 2020-03-14 16:54 | Diagnostic Imaging Report ---
INDICATION: Pain. Fell from mobile chair. EXAMINATION: Left foot, 03/14/2020. FINDINGS: Two views of the left foot. Narrowing and spurring at the 1st metatarsophalangeal joint is noted. No fracture appreciated. The remaining osseous structures are grossly unremarkable. There is plantar calcaneal spurring. IMPRESSION: Degenerative findings with no acute of abnormality appreciated. Dictated by: Dictated on workstation # [id number]
--- NOTE | 2020-03-14 17:02 | Diagnostic Imaging Report ---
INDICATION: Fell from chair. Right knee pain. FINDINGS: Three views. There are no fractures or dislocation. Nonweightbearing images show good preservation of joint spaces. Mild hypertrophic changes are noted throughout. No loose bodies. IMPRESSION: 1. No acute abnormalities demonstrated. 2. Mild diffuse degenerative change. Dictated by: Dictated on workstation # [id number]
--- NOTE | 2020-03-14 17:10 | Diagnostic Imaging Report ---
INDICATION: Fell off a chair. Back pain. EXAMINATION: Lumbar cervical spine dated 03/14/2020 FINDINGS: 3 views of the lumbar spine. Alignment is preserved. Vertebral body heights are maintained. No fracture is appreciated. There is intervertebral disc space narrowing with anterior spurring and endplate sclerosis noted from the T11-T12 through the T12-L1 levels. There is facet hypertrophy at L5-S1. A pars defect at this level is difficult to completely exclude versus changes caused by superimposed structures. IMPRESSION: 1. Multilevel degenerative findings predominantly in the lower thoracic spine and lower lumbar region. See above discussion. 2. Pars defect at L5 versus superimposed structures. Dictated by: Dictated on workstation # [id number]
[2020-03-14 17:13] VITALS: BP 103/87
--- OUTSIDE RECORDS SUMMARY | 2020-03-14 17:17 | XMS REPORT ---
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 Name Role Phone UHRTADO SHUBHAM Unavailable Unavailable GILDARDO MCGARRY Unavailable LAM VALDES Unavailable Unavailable NO, LOCAL PHYSICIAN Unavailable Unavailable GILDARDO MCGARRY Unavailable GILDARDO MCGARRY Unavailable MATTY VALENZUELA Unavailable [facility] Unavailable YU SAMUEL Unavailable CHANDNI WILSON Unavailable Unavailable LISA BEE Unavailable MATTY VALENZUELA Unavailable YU SAMUEL Unavailable ANGLECAR ORELLANAYLA Unavailable ANGLEREYNA, MARILU Unavailable YU SAMUEL Unavailable [facility] Unavailable YU SAMUEL Unavailable DONTE CHENSIE Unavailable YU SAMUEL Unavailable YU SAMUEL Unavailable ANGLEREYNA, MARILU Unavailable YU SAMUEL Unavailable YU SAMUEL Unavailable Rona JACKSIE Unavailable YU SAMUEL Unavailable YU SAMUEL Unavailable YU SAMUEL Unavailable YU SAMUEL Unavailable DONTE ReaSIE Unavailable Rona JACKSIE Unavailable JIMMIE, YU Unavailable ANGLECAR ORELLANAYLA Unavailable ANGLECAR ORELLANAYLA Unavailable JIMMIE, YU Unavailable JIMMIE, YU Unavailable JIMMIE, YU Unavailable JIMMIE, YU Unavailable Rona JACKSIE Unavailable JIMMIE, YU Unavailable JIMMIE, YU Unavailable zNick, JACKSIE Unavailable JIMMIE, YU Unavailable JIMMIE, YU Unavailable JIMMIE, YU Unavailable JIMMIE, YU Unavailable JIMMIE, YU Unavailable JIMMIE, YU Unavailable JIMMIE, YU Unavailable JIMMIE, YU Unavailable ARAMIS RUBIO Unavailable Unavailable NOLAN GUADALUPE, MARGO Unavailable Unavailable GILDARDO MCGARRY MD Unavailable Unavailable CAR DUONGYLA Unavailable ZAINAB GUADALUPE, ANETA Adams Unavailable Unavailable BRISEIDA CIFUENTES Unavailable Unavailable JIMMIE, YU Unavailable MILLIE GUADALUPE, MIKE Adams Unavailable Unavailable JASON GUADALUPE, VINCENT Bah Unavailable Unavailable CINDY GUADALUPE FAC, LOLY TEJADA CCDS Unavailable Unavailabl e JIMMIE, YU Unavailable JIMMIE, YU Unavailable CHASITY AWAD APRN Unavailable Unavailable DONTE ReaSIE Unavailable JIMMIEYU Unavailable JIMMIE, YU Unavailable JIMMIE, YU Unavailable JIMMIE, YU Unavailable JIMMIE, YU Unavailable JIMMIE, YU Unavailable JIMMIE, YU Unavailable JIMMIE, YU Unavailable JIMMIE, YU Unavailable JIMMIE, YU Unavailable JIMMIE, YU Unavailable YU SAMUEL Unavailable JIMMIE, YU Unavailable JIMMIE, YU Unavailable JIMMIE, YU Unavailable JIMMIE, YU Unavailable JIMMIE, YU Unavailable JIMMIE, YU Unavailable JIMMIE, YU Unavailable JIMMIE, YU Unavailable JIMMIE, YU Unavailable JIMMIE, YU Unavailable MARILU KLINE Unavailable [facility] Unavailable CHAZ MARIN LINE PATROLLER Unavailable Unavailable YU SAMUEL Unavailable NISHA BATES MD Unavailable Unavailable JIMMIEYU Unavailable Unavailable [facility] PCP BROWN, GILDARDO Unavailable Unavailable BROWN, GILDARDO Unavailable Unavailable BROWN, GILDARDO Unavailable Unavailable JIMMIEYU T LINE PATROLLER Unavailable Unavailable INOCENCIA FENTON MD Unavailable Unavailable CINDY GUADALUPE FAC, LOLY FACMathew CCDS Unavailable Unavailabl e BROWN, GILDARDO Unavailable Unavailable BROWN, GILDARDO Unavailable Unavailable BROWN, GILDARDO Unavailable Unavailable ZEFERINO GUADALUPE, GILDARDO K Unavailable Unavailable NOLAN GUADALUPE, MARGO Unavailable Unavailable HALI GUADALUPE, IVA White Unavailable Unavailable MYLA GUADALUPE, JAY Acevedo Unavailable Unavailable MOLINA GUADALUPE, AROLDO Mcginnis Unavailable Unavailable BRISEIDA CIFUENTES LINE PATROLLER Unavailable Unavailable JIMMIE LINE PATROLLER, YU T Unavailable [facility]available [facility] Unavailable Unavailable JASON GUADALUPE, VINCENT Bah Unavailable Unavailable CHASITY AWAD LUBRICATION WORKER Unavailable Unavailable CHASITY AWAD APRN Unavailable Unavailable [facility] PCP [phone] MILLIE GUADALUPE, MIKE Adams Unavailable Unavailable ARAMIS RUBIO Unavailable Unavailable BEATA ZIEGLER, EMERSON F Unavailable Unavailable JET ZIEGLER, DAMIEN K Unavailable Unavailable ZAINAB GUADALUPE, ANETA Adams Unavailable Unavailable JASMIN GUADALUPE, DILLAN Holguin Unavailable Unavailable ANSHU GUADALUPE, ALEX Unavailable Unavailable INOCENCIA FENTON MD Unavailable Unavailable VITT VERA M LINE PATROLLER Unavailable Unavailable BETTINA ZIEGLER, GAIL R Unavailable Unavailable ZIYAD GUADALUPE, GRISELDA Mcginnis Unavailable Unavailable JANA GUADALUPE, NISHA Holguin Unavailable Unavailable IMELDA BATEMAN MD Unavailable Unavailable ISABEL YOUSIF DO Unavailable Unavailable ANNA GUADALUPE, RONEY Dinero Unavailable Unavailable YU SAMUEL Unavailable JAY BERMAN MD Unavailable Unavailable MARILU KLINE Unavailable LISA BEE Unavailable LISA BEE Unavailable Unavailable Unavailable Unavailable Unavailable Unavailable Unavailable Unavailable Unavailable Unavailable Unavailable Unavailable Unavailable Unavailable Unavailable Allergies Normalized Allergy Reported Date of Reaction(s) Care Provider Facility Allergy Type classification allergen Allergy Onset Drug Allergy guaiFENesin / guaiFENesin / UNKNOWN [facility] (1 source.) HYDROcodone / HYDROcodone / [facility] o f Pseudoephedrin Pseudoephedrin [place] [facility] ([address]) Medications Current Medications Medication Ingredient Drug Dose Dates Status Sig Sig Care Class(es) (Normalized) (Original) Provid er betamethaso Betamethaso Azole Active no Lotrisone no ne 0.5 ne / Antifungal, information 1-0.05 % name mg/ml / Clotrimazol Corticoster Externally clotrimazol e oid Twice a day e 10 mg/ml Translation 1 topical s: [ application cream (1 Lotrisone to affected source.) 1-0.05 %] area 12h 7 Active no Budesonide Corticoster 2 09-06-20 Active take 2 [place] sonide - no information Translation oid puff(s 18 puff(s) by Inhalatio n 2 name (3 s: [ ) inhalation times a day sources.) Budesonide twice daily 2 puffs 12h -, Aug, Budesonide 30 days -] Active 2 puff(s) 09-06-2018 Active take 2 Budesoni no name puff(s de - ) by Inhalati inhala on 2 tion times a twice day 2 daily puffs 12h Aug, 30 days Active no Budesonide no 2 09-06-20 Active take 2 Budesonid e no information 90 MCG/ACT information puff(s 18 puff(s) by 90 MC G/ACT name (1 source.) ) inhalation Inhalation 2 twice daily times a day 2 puffs 12h Aug, 30 days Active cetirizine Cetirizine Histamine-1 10 mg 04-07-20 Active no Cetirizine no hydrochlori Translation Receptor 18 - information HCl 10 mg name de 10 mg s: [ Antagonist 10-04-19 Orally Once oral tablet Cetirizine 19 a day 1 (1 source.) HCl 10 mg] tablet 24h Mar, Sep, 30 day(s) Active cromolyn cromolyn Mast Cell 1 05-23-20 Active take 1 Cromol yn no sodium 40 Translation Stabilizer drop(s 18 drop(s) into Sodiu m 4 % name mg/ml s: [ ) the eye(s) Ophthalmic ophthalmic Cromolyn four times Four times a solution (1 Sodium 4 %] daily day 1 drop source.) into affected eye 6h Apr, 30 days Active 120 actuat fluticasone Corticoster 1 09-12-20 Active take 1 Flovent HFA no fluticasone Translation oid puff(s 18 puff(s) by 110 MCG/A CT name propionate s: [ ) inhalation Inhalation 0.11 Flovent HFA twice daily Twice a day mg/actuat 110 1 puff 12h metered MCG/ACT, Aug, dose Fluticasone 30 days inhaler (4 propionate Active sources.) 0.05 MG/ACTUAT Metered Dose Nasal [place] [Flonase], Flonase 50 MCG/ACT] 1 spray(s) 04-07-2018 Active take 1 Flonase no name spray( 50 s) MCG/ACT nasal Nasally route Once a once day 1 daily spray in each nostril 24h Mar, Active guaiFENesin guaiFENesin no 400 mg 10-26-19 Active take 1 Gua ifenesin no 400 mg oral Translation information 19 tablet by 400 mg name tablet (1 s: [ mouth every Orally every source.) Guaifenesin four hours 4 hrs 1 400 mg] as needed tablet as needed 4h Sep, Active levalbutero Levalbutero beta2-Adren 1.251 10-26-19 Active take 3 mL by Xopenex 1.25 no l 0.417 l ergic mg/mL 19 inhalation MG/3ML name mg/ml Translation Agonist four times Inhalation 4 inhalant s: [ daily times a day solution (1 Xopenex 3 ml 6h 31 source.) 1.25 Sep, 2018 MG/3ML] Active no Nebulizer - no 08-11-20 Active no Nebulizer - no information Translation information 18 information as dir ected name (1 source.) s: [ Jul, Nebulizer Active -] no Nebulizer - no 08-11-20 Active no Nebulizer - no information Translation information 18 information as dir ected name (1 source.) s: [ Jul, Nebulizer Active -] olopatadine olopatadine Histamine-1 1 05-03-20 Active take 1 Patanol 0.1 no 1 mg/ml Translation Receptor drop(s 18 drop(s) into % Ophthal rhiannon name ophthalmic s: [ Inhibitor ) the eye(s) Twice a day solution (3 Patanol 0.1 twice daily 1 drop into sources.) %, Patanol each eye 12h 0.1 %] Apr, 30 days Active predniSONE predniSONE no 20 mg 11-29-19 Active take 1 Predn iSONE no 20 mg oral Translation information 19 tablet by 20 mg Ora lly name tablet (2 s: [ mouth once Once a day 1 sources.) PredniSONE daily tablet 24h 20 mg, Nov, PredniSONE 5 days 20 mg] Active Completed/Discontinued Medications Medication Ingredient Drug Dose Dates Status Sig Sig Care Class(es) (Normalized) (Original) Provid er no ] no 04-19-20 Complete no ] no information information 14 d information Disconti nued name (2 NOT sources.) APPLICABLE April 19, 2014 no Cholecalcif Vitamin D 10-16-19 Complete no Cholecalci fe no information beverley 16 d information rol nam e (2 Discontinued sources.) 400 ORAL October 16, 2015 no Clindamycin Lincosamide 10-27-19 Complete no Clindamy lola no information Antibacteri 10 d information Hcl name (2 al Discontinued sources.) NOT APPLICABLE October 27, 2009 no Hydrocodone no 04-19-20 Complete no Hydrocodone n o information Bit/Acetami information 14 - d information Bi t/Acetamin name (2 nophen 10-16-19 ophen sources.) 16 Discontinued 1 ORAL Every 6 Hours as needed for Pain 10 April 19, 2014 1:42pm October 16, 2015 no Multivitami no 10-14-19 Complete no Multivitamin no information n information 18 d information Discont inued name (2 preparation 1 ORAL Daily sources.) October 14, 2017 Problems Active Problems Problem Normalized Date Last Normalized Normalized Provider Fa cility Classification Problem(s) Recorded Problem Problem Sta tus Duration Abdominal pain Abdominal Episodic Active ANETA LAMB Not Available (20 sources.) pain, , () unspecified site Translations: [ ABDOMINAL PAIN, LEFT UPPER QUADRANT, ABDOMINAL PAIN, OTHER SPECIFIED SITE] Residual Acquired Episodic Active AROLDO AUGUSTE [facility] Via codes; absence of , MD Raman unclassified both cervix Hospital - (19 sources.) and uterus [place] () Other Acute diarrhea [facility]is[facility] gastrointestin [facility] Danisha al disorders [address] Hospital (2 sources.) (34364) Deficiency and Anemia, Episodic Active ANETA LAMB Not Available other anemia unspecified , () (20 sources.) Attention-defi Attention-defi Chronic Active [facility]OLDO AUGUSTE [facility] Via cit conduct cit , MD Raman and disruptive hyperactivity [facility] disorders (22 unspecified () sources.) type Other Care involving Episodic Active GILDARDO BROWN [facility] Via aftercare (1 other physical , MD Raman source.) therapy [facility] () Nonspecific Chest pain, Episodic Active ALI CINDY , [facility] V ia chest pain (18 unspecified MD TEREZA Raman sources.) Hospital - [place] () Fracture of Closed Episodic Active ARAMIS [facility] Via lower limb (7 fracture of EDGAR HAYS sources.) metatarsal Hospital - bone(s) [place] () Coma; stupor; Coma scale, Episodic Active CHASITY AWAD [facility] Via and brain eyes open, Danisha damage (15 spontaneous, Hospital - sources.) at arrival to [place] emergency () department Translations: [ COMA SCALE, BEST VERBAL RESPONSE, ORIENT, COMA SCALE, BEST MOTOR RESPONSE, OBEYS C] Other injuries Contusion of Episodic Active CHASITY AWAD [facility] Via and conditions unspecified Danisha due to site Hospital - external [place] causes (11 () sources.) Other lower Cough Episodic Active NISHA BATES [facility] Via respiratory , MD Raman disease (8 Hospital - sources.) [place] () Other Diarrhea Episodic Active RONEY CASTILLO , [facility] Via gastrointestin MD Raman al disorders Hospital - (2 sources.) [place] () Other skin Disorder of Episodic Active JAY LANZA [facility] V ia disorders (10 the skin and , MD Raman sources.) subcutaneous [facility] unspecified (81816) Other nervous Disturbance of Episodic Active ANETA LAMB [facility] Via system skin sensation , MD Raman disorders (1 Hospital - source.) [place] (20102) Other Dysphagia Episodic Active YU SAMUEL Via Tai ti gastrointestin Translations: [address] Hospital al disorders [ Dysphagia] [place] (7 sources.) (87458) Other injuries Elbow, Episodic Active GILDARDO BROWN [facility] Via and conditions forearm, and , MD Raman due to wrist injury Hospital - external [place] causes (1 (50710) source.) Other Encounter for 02-11-2020 - Episodic Active GILDARDO BR OWN Not Available aftercare (23 adjustment and MD (12853) sources.) management of vascular access device Immunizations Encounter for Episodic Active ARAMIS Not Available and screening immunization [place] (09290) for infectious Translations: disease (20 [ - Encounter sources.) for immunization Z23] Other Encounter for Episodic Active GILDARDO BROWN Not Available screening for screening , (29559) suspected mammogram for conditions malignant (not mental neoplasm of disorders or breast infectious Translations: disease) (21 [ ABN BLOOD sources.) CHEMISTRY NEC, ENCOUNTER FOR SCREENING FOR MALIGNANT NE] Epilepsy; Epilepsy, Chronic Active CHASITY AWAD Not Availa ble convulsions unspecified, (83208) (23 sources.) not intractable, without status epilepticus Translations: [ EPILEPSY UNSPEC W/O MENTION INTRACTABLE , OTHER SEIZURES, OTHER FORMS OF EPILEPSY AND RECURRENT SEIZURES, WITHOUT MENTION OF INTRACTABLE EPILEPSY] Essential Essential Chronic Active IVA HALI [facility] Via hypertension (primary) , MD Raamn (24 sources.) hypertension [facility] (49671) External cause Fall from Episodic Active DAMIEN JET DO [facility] Via codes: matthew Raman Overexertion slipping, Hospital - (2 sources.) tripping, or [place] stumbling (62122) Hemorrhoids First degree Episodic Active MARGO BATRESO , [facility] Via (13 sources.) hemorrhoids MD Raman [facility] (65965) Other Fitting and Episodic Active ANETA LAMB [facility] Vi a aftercare (20 adjustment of MD Raman sources.) vascular Hospital - catheter [place] (82848) Gastritis and Gastritis, Episodic Active TAKAAKI KIDO , [facility] Via duodenitis (25 unspecified, MD Raman sources.) without Hospital - bleeding [place] (17309) Esophageal Gastro-esophag Chronic Active TAKFREDDY FRANCISCO , N ot Available disorders (25 eal reflux (47322) sources.) disease without esophagitis Translations: [ GASTRO-ESOPHAG EAL REFLUX DISEASE WITH ES, ESOPHAGEAL OBSTRUCTION, ESOPHAGEAL REFLUX, ESOPHAGEAL OBSTRUCTION] Other injuries History of Episodic Active ANETA LAMB [facility] Via and conditions fall , MD Raman due to Hospital - external [place] causes (20 (41028) sources.) Disorders of Hyperlipidemia Chronic Active GILDARDO BROWN [facility] Via lipid , unspecified , MD Raman metabolism (23 Translations: Hospital - sources.) [ PURE [place] HYPERCHOLESTER (21970) OLEM, Hyperlipidemia , unspecified hyperlipidemia type, Hyperlipidemia , unspecified hyperlipidemia type, - Hyperlipidemia , unspecified hyperlipidemia type E78.5] Other lower Hypoxemia Episodic Active GILDARDO BROWN [facility] Vi a respiratory , MD Raman disease (7 Hospital - sources.) [place] () Residual Idiopathic Chronic Active GILDARDO BROWN Not Maxine ilable codes; sleep related , (97757) unclassified nonobstructive (7 sources.) alveolar hypoventilatio n Unclassified Idiopathic no information Active GILDARDO BROWN Not Available (16 sources.) sleep related , () nonobstructive alveolar hypoventilatio n Translations: [ ACQUIRED ABSENCE OF BOTH CERVIX AND UTER, OBSTRUCTIVE SLEEP APNEA (ADULT) (PEDIATR, - Observed sleep apnea G47.30, - Observed sleep apnea G47.30] Other Irritable Chronic Active GAIL DUNBAR [facility] Via gastrointestin bowel syndrome , DO Danisha al disorders Hospital - (1 source.) [place] (70452) Other Irritable Chronic Active CHASITY AWAD [facility] Via gastrointestin bowel syndrome Danisha al disorders without Hospital - (6 sources.) diarrhea [place] (67069) Other injuries Knee, leg, Episodic Active GILDARDO BROWN [facility] Via and conditions ankle, and , MD Raman due to foot injury Hospital - external [place] causes (14 (53903) sources.) Open wounds of Laceration Episodic Active ARAMIS Not Av ailable head; neck; without [place] (88728) and trunk (23 foreign body sources.) of scalp, initial encounter Translations: [ Laceration of scalp without complication, OPEN WOUND OF FOREHEAD, - Laceration of scalp, subsequent encounter S01.01XD] External cause Library as the Episodic Active GILDARDO BROWN [facility] Via codes: Place place of , MD Raman of occurrence occurrence of Hospital - (20 sources.) the external [place] cause (77328) Translations: [ UNSP PLACE IN SINGLE-FAMILY (PRIVATE) HO, ACCIDENT IN PLACE NEC, ACCID IN RECREATION AREA, ACCIDENT IN HOME, ACCIDENT IN PUBLIC BLDG] Other skin Localized Episodic Active YU SAMUEL Shawn y disorders (1 swelling, [facility] [address] [facility] source[facility] and lump, head of [place] Translations: [place] (19164) [ - Head lump R22.0] 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 AROLDO AUGUSTE [facility] Via aftercare (22 (current) use , MD Raman sources.) of aspirin [facility] (48168) Other senior care Episodic Active CHASITY AWAD [facility] Via aftercare (6 (current) use Danisha sources.) of systemic Hospital steroids [place] (19335) Other Long-term Episodic Active ANETA LAMB [facility] Via aftercare (20 (current) use , MD Raman sources.) of Hospital - anticoagulants [place] (29773) Other Long-term Episodic Active GILDARDO BROWN Not Avai lable aftercare (20 (current) use , (29527) sources.) of other medications Other Loss of weight Episodic Active GILDARDO BROWN [facility] Via nutritional; MD Raman endocrine; and Hospital - metabolic [place] disorders (2 (39613) sources.) Spondylosis; Low back pain Episodic Active [facility] Via intervertebral Translations: MD Raman disc [ PAIN IN Hospital - disorders; THORACIC [place] other back SPINE, (23794) problems (23 LUMBAGO] sources.) Spondylosis; Low back pain Chronic Active [facility] Via intervertebral Translations: MD Raman disc [ OTHER Hospital - disorders; INTERVERTEBRAL [place] other back DISC (28340) problems (29 DEGENERATION, sources.) , OTHER INTERVERTEBRAL DISC DEGENERATION, , OTHER INTERVERTEBRAL DISC DEGENERATION, ] Headache; Migraine, Chronic Active [facility] including unspecified, [facility] of migraine (24 not [place] sources.) intractable, County (29681) without status migrainosus Translations: [ TENSION-TYPE HEADACHE, UNSPECIFIED, NOT INTRACTABLE, TENSION HEADACHE] Other injuries Minor head Episodic Active [facility] and conditions injury [facility] Danisha due to [address] Hospital external (28376) causes (2 sources.) Other liver Nonspecific Episodic Active GILDARDO BROWN [facility] Via diseases (1 elevation of , MD Raman source.) levels of Hospital - transaminase [place] or lactic acid (33800) dehydrogenase [LDH] Other Obesity, Chronic Active ANETA LAMB Not Avail able nutritional; unspecified , MD (73563) endocrine; and metabolic disorders (20 sources.) Other Obesity, Chronic Active MARGO FRANCISCO , [facility] Via nutritional; unspecified MD Raman endocrine; and Hospital - metabolic [place] disorders (13 (24316) sources.) Open wounds of Open wound of Episodic Active INOCENCIA FENTON , [facility] Via extremities (4 knee, leg MD Raman sources.) [except Hospital - thigh], and [place] ankle, without (79525) mention of complication External cause Other cause of Episodic Active IMELDA BATEMAN , [facility] Via codes: Struck strike by MD Raman by; against thrown, Hospital - (13 sources.) projected or [place] falling (67603) object, initial encounter Translations: [ STRIKING AGAINST OR STRUCK BY OTHER OBJE, STRUCK BY OBJ/PERSON NEC] External cause Other external Episodic Active Niurka SANDOVAL [facility] Via codes: cause status Danisha Unspecified Translations: Hospital - (20 sources.) [ OTHER [place] EXTERNAL CAUSE (99347) STATUS, ACTIVITIES INVOLVING SWIMMING, UNSPECIFIED ACTIVITY, OTHER HOUSEHOLD MAINTENANCE] External cause Other fall on Episodic Active CHASITY AWAD V Via codes: Fall same level, Danisha (24 sources.) initial Hospital - encounter [place] Translations: (93038) [ FALL (ON) (FROM) OTHER STAIRS AND STEPS,, FALL ON SAME LEVEL, UNSPECIFIED, INITIAL, FALL NOS, FALL STRIKING OBJECT NEC, FALL INTO OTHER HOLE] Other Other long Episodic Active IVAMILLIE LAL [facility] Vi a aftercare (26 term (current) , MD Raman sources.) drug therapy [facility] (78163) Nonmalignant Other Episodic Active GILDARDO BROWN Not Av ailable breast specified , (88611) conditions (23 disorders of sources.) breast Other Other Chronic Active GILDARDO BROWN [facility] Via nutritional; specified , MD Raman endocrine; and metabolic Hospital - metabolic disorders [place] disorders (1 (10428) source.) Other Pain in joint, Episodic Active GILDARDO BROWN [facility] Via non-traumatic forearm , MD Raman [facility] - disorders (1 [place] source.) (44213) Other Pain in joint, Episodic Active GILDARDO BROWN [facility] Via non-traumatic lower leg , MD [facility] - disorders (4 [place] sources.) (98479) Other Pain in joint, Episodic Active ANETA LAMB [facility] Via non-traumatic shoulder , MD Raman [facility] - disorders (1 [place] source.) (85343) Other Pain in left Episodic Active BRISEIDA ESAU [facility] V ia non-traumatic shoulder [facility] - disorders (14 [place] sources.) (69148) Other Pain in right Episodic Active GILDARDO BROWN [facility] Via non-traumatic knee , MD Raman [facility] - disorders (25 [place] sources.) (29514) Other Pain in right Episodic Active GILDARDO BROWN [facility] Via non-traumatic shoulder , MD Raman [facility] - disorders (13 [place] sources.) (97239) Other Personal Episodic Active AROLDO AUGUSTE [facility] Via gastrointestin history of , MD Raman al disorders other diseases Hospital - (21 sources.) of the [place] digestive (27178) system Pneumonia Pneumonia, Episodic Active NISHA BATES [facility] Via (except that organism , MD Raman caused by unspecified Hospital - tuberculosis [place] or sexually (36260) transmitted disease) (3 sources.) Other Presence of 02-14-2020 - Chronic Active YU SAMUEL [facility] Via circulatory other vascular PEYMAN Raman disease (1 implants and Hospital - source.) grafts [place] (20063) Unclassified Radiation no information Active YU SAMUEL V cyndie Raman (5 sources.) therapy care [id number] [place] [address] (88895) Other skin Rash and other Episodic Active YU SAMUEL Com munity disorders ([id number] [place] [address] sources.) skin eruption of [place] Translations: [place] (82543) [ - Rash R21] Other lower Shortness of Episodic Active YU SAMUEL Comm unity respiratory breath [address] [place] [address] disease (20 Translations: of [place] sources.) [ - SOB [place] (63533) (shortness of breath) R06.02] Other lower Snoring Episodic Active GILDARDO MCGARRY Not Maxine ilable respiratory , (01307) disease (12 sources.) Other Splenomegaly Episodic Active GILDARDO BROWN [facility] V ia gastrointestin , MD Raman al [facility] - (5 sources.) [place] (29711) Syncope (2 Syncope and Episodic Active GRISELDA LACKEY [facility] V ia sources.) collapse , Danisha [facility] - [place] (43658) Asthma (21 Unspecified Chronic Active AROLDO ODGERS Not A vailable sources.) asthma, , () uncomplicated Translations: [ Moderate persistent asthma without complication, Moderate persistent asthma without complication, - Moderate persistent asthma without complication J45.40] Other injuries Unspecified Episodic Active VINCENT [facility] V ia and conditions injury of JASON , MD Raman due to head, initial Hospital - external encounter [place] causes (12 (71981) sources.) Genitourinary Unspecified no information Active MIKE PINTO , Not Available symptoms and urinary () ill-defined incontinence conditions (8 Translations: sources.) [ FREQUENCY OF MICTURITION] Other diseases Venous Episodic Active IVA LAL [facility] Via of veins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 Negative (no code) 11-19-2016 Not Availab le IGM 15:45-0500 (05813) HEP C VIRUS AB <0.1 (no code) 11-19-2016 Not Availab le 15:45-0500 ([id number]) Vital Signs Vital Sign Value Interpretation Reference Date Time Care Prov ider Facility (Normalized) (Normalized) Range BMI (Body Mass 45.96 kg/m2 (no code) 15 - 25 kg/m2 09-12-2018 Rahel KLINE Community Index) 17:00-0500 [id number] [facility] ([id number]) BMI (Body Mass 46.45 kg/m2 (no code) 15 - 25 kg/m2 03-16-2018 Rosette SAMUEL Community Index) 10:40-0400 31734 [facility] (70998) Body height 149.86 cm (no code) cm 12-11-2018 [facility] 12:40-[address] [place] [address] ([id number]) Body 98.8 [degF] (no code) 97.8 - 99.0 03-16-2018 YU GROVER Community Temperature [degF] 10:40-[address] [place] [address] (49460) Height 149.86 cm (no code) cm 09-12-2018 [facility] 17:00-[address] [place] [address] (55886) Height 149.86 cm (no code) cm 04-06-2018 [facility] 15:00-[address] [place] [address] (45566) Height 149.86 cm (no code) cm 03-16-2018 YU Lorenzo [facility] 10:40-[address] [place] [address] ([id number]) Weight 103.24 kg (no code) kg 09-12-2018 [facility] 17:00-[address] [place] [address] ([id number]) Weight 104.33 kg (no code) kg 03-16-2018 YU Lorenzo [facility] 10:40-[address] [place] [address] ([id number]) Interventions No Information Plan of Treatment Normalized Care Care Detail Care Activity Date Care Provider F acility Activity (CHM) [facility] 08-11-2018 YU Randle762 [facility] ([id number]) (CHM) [facility] 09-01-2018 YU Summers [facility] ([id number]) (D-JL) [facility] 07-13-[address] [place] [address] Oral DENTAL [facility] ([id number]) (PROC-20) [facility] 07-11-2018 [facility]U [facility]UEL [address] [facility]-20 min [facility] ([id number]) (PROC-20) [facility] 10-10-2018 YU SAMUEL [address] [facility] Procedure-20 min [facility] ([id number]) (PSY-FU-20) [facility] 07-25-2018 YU SAMUEL [address] [facility] Psych[facility] F/U 20 [facility] ([id number]) (PSY-FU-20) [facility] 09-21-2018 YU SAMUEL 75343 [facility] F/U 20 [facility] ([id number]) (PSY-FU-20) [facility] 03-13-2019 YU SAMUEL 27995 [facility] F/U 20 [facility] ([id number]) Patient Education Laceration Repair no information [facility] [place] [facility] (DC) [address] [place] [address] ([id number]) Patient referral no information no information [facility] [place] [facility] [address] [place] [address] ([id number]) Goals Patient Goal Desired Goal no information no information Social History Normalized Code Original Code Date Value Tobacco smoking status Tobacco smoking status no information Never smoked tobacco NHIS ALIS (finding) no information no information 01-29-2016 Denies Use no information no information 01-29-2016 No no information no information 04-19-2014 Contact no information no information 08-07-2019 Never a Smoker Sex Assigned At Sex Assigned At no information F emale Functional Status The data below is from unstructured sources Query Response Date Ger rded Patient Orientation Person November 14, 2016 4:21pm Comprehension Ability Understands Co ncepts November 14, 2016 4:21pm Mental Status The data below is from unstructured sourcesNo Mental Status Information AvailableNo Mental Status Information AvailableNo Mental Status Information Available Encounters Encounter Normalized Encounter Encounter Diagnosis Care Provi navdeep Organization Date Type 07-13-2018 (D-JL) Comprehensive no information MATTY NEARING (no [facility] Oral Exam phone) DENTAL (no phone) 06-16-2018 Admission to day no information MARGO ArasO Work no organization name - surgery Phone: 06-16-2018 MARGO BATRESO 07-31-2019 Discharged Recurring no information (no phone) [facility] (no phone) 09-04-2019 02-12-2019 Discharged Recurring no information YU SAMUEL no organization name - Work Phone: 05-14-2019 01-05-2019 Discharged Recurring no information YU SAMUEL no organization name - Work Phone: 02-12-2019 10-05-2018 Discharged Recurring no information YU SAMUEL no organization name - Work Phone: 10-13-2018 06-01-2018 Discharged Recurring no information YU SAMULE no organization name - Work Phone: 06-22-2018 08-07-2019 Emergency department no information (no phone) [facility] - patient visit [facility] (no phone) 08-07-2019 08-07-2019 Emergency department no information CHASITY Adams PRN (no [facility] - patient visit phone) [facility] 08-07-2019 (no phone) 03-10-2018 Emergency department no information CHASITY Adams PRN (no [facility] - patient visit phone) [facility] 03-10-2018 (no phone) 08-12-2017 Emergency department no information AROLDO AUGUSTE MD (no [facility] - patient visit phone) [facility] 08-12-2017 (no phone) 11-14-2016 Emergency department no information VINCENT DEAL MD [facility] - patient visit (no phone) [facility] 11-14-2016 (no phone) 01-29-2016 Emergency department no information ARAMIS HERNÁNDEZ [facility] - patient visit (no phone) [facility] 01-29-2016 (no phone) 04-19-2014 Emergency department no information no name no organization name - patient visit 04-19-2014 04-19-2014 Emergency department no information no name no organization name - patient visit 04-19-2014 05-22-2013 Emergency department no information no name no organization name - patient visit 05-22-2013 07-26-2011 Emergency department no information no name no organization name - patient visit 07-26-2011 03-04-2011 Emergency department no information no name no organization name - patient visit 03-04-2011 07-20-2010 Emergency department no information no name no organization name - patient visit 07-20-2010 04-28-2010 Emergency department no information no name no organization name - patient visit 04-28-2010 04-03-2010 Emergency department no information no name no organization name - patient visit 04-03-2010 10-25-2009 Emergency department no information no name no organization name - patient visit 10-25-2009 07-14-2018 Patient encounter no information no name no or ganization name 06-22-2018 Patient encounter no information no name no or ganization name 06-16-2018 Patient encounter no information no name no or ganization name - 06-16-2018 06-15-2018 Patient encounter no information [facility] no organization name - 06-15-2018 [facility] 06-01-2018 Patient encounter no information no name no or ganization name - 06-21-2018 05-01-2018 Patient encounter no information no name no or ganization name 04-25-2018 Patient encounter no information no name no or ganization name 04-20-2018 Patient encounter no information no name no or ganization name 04-07-2018 Patient encounter no information no name no or ganization name 04-06-2018 Patient encounter no information no name no or ganization name 03-23-2018 Patient encounter no information no name no or ganization name 03-10-2018 Patient encounter no information no name no or ganization name NEGATED Patient encounter no information no name no or ganization name 02-27-2018 02-20-2018 Patient encounter no information no name no or ganization name 02-16-2018 Patient encounter no information no name no or ganization name 02-16-2018 Patient encounter no information no name no or ganization name - 02-19-2018 01-31-2018 Patient encounter no information no name no or ganization name 01-24-2018 Patient encounter no information no name no or ganization name NEGATED Patient encounter no information no name no or ganization name 01-13-2018 01-05-2018 Patient encounter no information no name no or ganization name 12-29-2017 Patient encounter no information no name no or ganization name 12-15-2017 Patient encounter no information no name no or ganization name 11-17-2017 Patient encounter no information no name no or ganization name 10-28-2017 Patient encounter no information no name no or ganization name 10-19-2017 Patient encounter no information no name no or ganization name - 10-19-2017 10-13-2017 Patient encounter no information no name no or ganization name 10-04-2017 Patient encounter no information no name no or ganization name 09-13-2017 Patient encounter no information no name no or ganization name 08-16-2017 Patient encounter no information no name no or ganization name 05-18-2017 Patient encounter no information no name no or ganization name 02-16-2017 Patient encounter no information no name no or ganization name - 05-17-2017 01-21-2017 Patient encounter no information no name no or ganization name 11-24-2016 Patient encounter no information no name no or ganization name 06-11-2016 Patient encounter no information no name no or ganization name 05-17-2016 Patient encounter no information no name no or ganization name 03-19-2016 Patient encounter no information no name no or ganization name 03-12-2016 Patient encounter no information no name no or ganization name 10-22-2015 Patient encounter no information no name no or ganization name - 10-22-2015 03-04-2015 Patient encounter no information no name no or ganization name 10-09-2014 Patient encounter no information no name no or ganization name 11-19-2013 Patient encounter no information no name no or ganization name 11-13-2013 Patient encounter no information no name no or ganization name 08-31-2013 Patient encounter no information no name no or ganization name 08-02-2013 Patient encounter no information no name no or ganization name 09-27-2012 Patient encounter no information no name no or ganization name 08-10-2012 Patient encounter no information no name no or ganization name - 09-26-2012 04-25-2012 Patient encounter no information no name no or ganization name - 05-22-2012 Patient encounter no information no name no organizat ion name 03-04-2020 Patient encounter no information YU SAMUEL (no [facility] phone) [facility] (no phone) 02-21-2020 Patient encounter no information UY SAMUEL (no [facility] procedure phone) [facility] (no phone) 02-11-2020 Patient encounter no information YU CARRERO P [facility] procedure (no phone) [facility] (no phone) 02-06-2020 Patient encounter no information (no phone) [facility] procedure [facility] (no phone) 01-17-2020 Patient encounter no information YU SAMUEL (no [facility] procedure phone) [facility] (no phone) 12-26-2019 Patient encounter no information YU SAMUEL (no [facility] procedure phone) [facility] (no phone) 12-14-2019 Patient encounter no information YU CARRERO P [facility] procedure (no phone) [facility] (no phone) 11-29-2019 Patient encounter no information YU CARRERO P [facility] procedure (no phone) [facility] (no phone) 11-16-2019 Patient encounter no information YU SAMUEL (no [facility] procedure phone) [facility] (no phone) 11-09-2019 Patient encounter no information [facility] BRIC[facility] (no ph one) [facility] - procedure (no phone) (no phone) [facility] 11-09-2019 [facility] (no phone) 09-24-2019 Patient encounter no information no name no or ganization name procedure 09-14-2019 Patient encounter no information YU CARRERO P [facility] - procedure (no phone) [facility] [place] 12-12-2019 (no phone) 09-11-2019 Patient encounter no information no name no or ganization name procedure 09-03-2019 Patient encounter no information no name no or ganization name procedure 08-07-2019 Patient encounter no information no name no or ganization name procedure 07-31-2019 Patient encounter no information YU CARRERO P [facility] - procedure (no phone) [facility] [place] 09-02-2019 (no phone) 07-05-2019 Patient encounter no information no name no or ganization name procedure 07-05-2019 Patient encounter no information no name no or ganization name procedure 06-26-2019 Patient encounter no information no name no or ganization name procedure 06-05-2019 Patient encounter no information no name no or ganization name procedure 06-05-2019 Patient encounter no information no name no or ganization name procedure 05-14-2019 Patient encounter no information no name no or ganization name procedure 05-14-2019 Patient encounter no information no name no or ganization name procedure 05-13-2019 Patient encounter no information no name no or ganization name procedure 04-30-2019 Patient encounter no information no name no or ganization name procedure 04-09-2019 Patient encounter no information YU Carmona [facility] [address] - procedure (no phone) [facility] 05-13-2019 (no phone) 03-30-2019 Patient encounter no information no name no or ganization name procedure 03-13-2019 Patient encounter no information no name no or ganization name procedure 02-14-2019 Patient encounter no information no name no or ganization name procedure 02-12-2019 Patient encounter no information no name no or ganization name procedure 02-12-2019 Patient encounter no information no name no or ganization name procedure 02-12-2019 Patient encounter no information no name no or ganization name procedure 02-06-2019 Patient encounter no information no name no or ganization name procedure 01-26-2019 Patient encounter no information no name no or ganization name procedure 01-26-2019 Patient encounter no information no name no or ganization name procedure 01-05-2019 Patient encounter no information no name no or ganization name - procedure 02-11-2019 01-05-2019 Patient encounter no information YU Carmona [facility] - procedure (no phone) [facility] 02-10-2019 (no phone) 12-25-2018 Patient encounter no information no name no or ganization name procedure 12-11-2018 Patient encounter no information no name no or ganization name procedure 11-13-2018 Patient encounter no information no name no or ganization name procedure 10-26-2018 Patient encounter no information no name no or ganization name procedure 10-24-2018 Patient encounter no information no name no or ganization name procedure 10-13-2018 Patient encounter no information no name no or ganization name procedure 10-10-2018 Patient encounter no information no name no or ganization name procedure 10-05-2018 Patient encounter no information no name no or ganization name - procedure 10-12-2018 10-05-2018 Patient encounter no information YU Carmona [facility] - procedure (no phone) [facility] 10-11-2018 (no phone) 09-22-2018 Patient encounter no information no name no or ganization name procedure 09-21-2018 Patient encounter no information no name no or ganization name procedure 09-12-2018 Patient encounter no information no name no or ganization name procedure 09-04-2018 Patient encounter no information no name no or ganization name procedure 09-01-2018 Patient encounter no information no name no or ganization name procedure 06-16-2018 Patient encounter no information MARGO FRANCISCO MD (n o [facility] - procedure phone) [facility] 06-16-2018 (no phone) 06-15-2018 Patient encounter no information MARGO FRANCISCO MD (n o [facility] - procedure phone) [facility] 06-15-2018 (no phone) 06-01-2018 Patient encounter no information YU Carmona [facility] - procedure (no phone) [facility] 06-20-2018 (no phone) 03-06-2018 Patient encounter no information LOLY SAMUELA I [facility] procedure (no phone) [facility] (no phone) 02-16-2018 Patient encounter no information YU Carmona [facility] - procedure (no phone) [facility] 02-18-2018 (no phone) 10-19-2017 Patient encounter no information IVA Bah [facility] - procedure (no phone) [facility] 10-19-2017 (no phone) 10-14-2017 Patient encounter no information IVA Bah [facility] - procedure (no phone) [facility] [place] 10-14-2017 (no phone) 10-04-2017 Patient encounter no information YU Carmona [facility] procedure (no phone) [facility] carmen SAMUELAI (no phone) (no phone) YU MORLEY (no phone) LOLY VERDUGO (no phone) 08-16-2017 Patient encounter no information JAY LANZA MD (no [facility] procedure phone) [facility] (no phone) 08-11-2017 Patient encounter no information GILDARDO MCGARRY MD (no [facility] - procedure phone) [facility] 08-12-2017 (no phone) 07-22-2017 Patient encounter no information no name no or ganization name - procedure 07-23-2017 05-18-2017 Patient encounter no information GILDARDO MCGARRY MD (no [facility] procedure phone) [facility] (no phone) 04-25-2017 Patient encounter no information no name no or ganization name - procedure 04-26-2017 02-16-2017 Patient encounter no information GILDARDO MCGARRY MD (no [facility] - procedure phone) [facility] 05-16-2017 (no phone) 01-21-2017 Patient encounter no information GILDARDO MCGARRY MD (no [facility] procedure phone) [facility] (no phone) 11-24-2016 Patient encounter no information BRISEIDA ALDRICH SAMPLER TESTER [facility] (no phone) [facility] (no phone) 11-19-2016 Patient encounter no information no name no or ganization name - procedure 11-20-2016 06-11-2016 Patient encounter no information GILDARDO MCGARRY MD (no [facility] procedure phone) [facility] (no phone) 05-17-2016 Patient encounter no information MIKE PINTO MD ( no [facility] procedure phone) [facility] (no phone) 03-19-2016 Patient encounter no information GILDARDO MCGARRY MD (no [facility] procedure phone) [facility] (no phone) 03-12-2016 Patient encounter no information GILDARDO MCGARRY MD (no [facility] procedure phone) [facility] (no phone) 10-22-2015 Patient encounter no information MARGO FRANCISCO MD (n o [facility] - procedure phone) [facility] 10-22-2015 (no phone) 03-04-2015 Patient encounter no information GILDARDO MCGARRY MD (no [facility] procedure phone) [facility] (no phone) 10-09-2014 Patient encounter no information GILDARDO MCGARRY MD (no [facility] procedure phone) [facility] (no phone) 11-19-2013 Patient encounter no information no name no or ganization name procedure 11-13-2013 Patient encounter no information no name no or ganization name procedure 08-31-2013 Patient encounter no information no name no or ganization name procedure 08-02-2013 Patient encounter no information no name no or ganization name procedure 08-10-2012 Patient encounter no information no name no or ganization name - procedure 09-25-2012 12-29-2011 Patient encounter no information no name no or ganization name - procedure 01-25-2012 12-29-2011 Patient encounter no information no name no or ganization name - procedure 01-24-2012 10-26-2011 Patient encounter no information no name no or ganization name procedure 10-26-2011 Patient encounter no information no name no or ganization name procedure 09-14-2011 Patient encounter no information no name no or ganization name - procedure 09-28-2011 09-14-2011 Patient encounter no information no name no or ganization name - procedure 09-27-2011 07-23-2011 Patient encounter no information no name no or ganization name procedure 07-23-2011 Patient encounter no information no name no or ganization name procedure 05-26-2011 Patient encounter no information no name no or ganization name - procedure 05-25-2011 03-02-2011 Patient encounter no information no name no or ganization name procedure 01-18-2011 Patient encounter no information no name no or ganization name - procedure 02-21-2011 09-28-2010 Patient encounter no information no name no or ganization name - procedure 11-22-2010 07-22-2010 Patient encounter no information no name no or ganization name procedure 07-08-2010 Patient encounter no information no name no or ganization name - procedure 07-10-2010 07-01-2010 Patient encounter no information no name no or ganization name procedure 06-30-2010 Patient encounter no information no name no or ganization name - procedure 08-16-2010 06-15-2010 Patient encounter no information no name no or ganization name procedure 03-16-2010 Patient encounter no information no name no or ganization name - procedure 03-16-2010 02-18-2010 Patient encounter no information no name no or ganization name procedure 02-02-2010 Patient encounter no information no name no or ganization name procedure 01-26-2010 Patient encounter no information no name no or ganization name procedure 01-16-2010 Patient encounter no information no name no or ganization name procedure 01-09-2010 Patient encounter no information no name no or ganization name procedure 10-25-2009 Patient encounter no information no name no or ganization name procedure 10-16-2009 Patient encounter no information no name no or ganization name - procedure 11-15-2009 10-09-2009 Patient encounter no information no name no or ganization name procedure 09-16-2009 Patient encounter no information no name no or ganization name procedure 08-27-2009 Patient encounter no information no name no or ganization name procedure 07-23-2009 Patient encounter no information no name no or ganization name procedure 06-16-2009 Patient encounter no information no name no or ganization name procedure 06-12-2009 Patient encounter no information no name no or ganization name - procedure 08-09-2009 05-12-2009 Patient encounter no information no name no or ganization name procedure 04-16-2009 Patient encounter no information no name no or ganization name - procedure 04-21-2009 03-17-2009 Patient encounter no information no name no or ganization name procedure 03-14-2009 Patient encounter no information no name no or ganization name procedure 12-02-2008 Patient encounter no information no name no or ganization name - procedure 12-03-2008 11-15-2008 Patient encounter no information no name no or ganization name procedure 10-23-2008 Patient encounter no information no name no or ganization name - procedure 01-20-2009 08-29-2008 Patient encounter no information no name no or ganization name - procedure 08-30-2008 08-19-2008 Patient encounter no information no name no or ganization name - procedure 09-09-2008 07-12-2008 Patient encounter no information no name no or ganization name procedure 07-12-2008 Patient encounter no information no name no or ganization name - procedure 08-03-2008 07-08-2008 Patient encounter no information no name no or ganization name procedure 07-05-2008 Patient encounter no information no name no or ganization name procedure 06-25-2008 Patient encounter no information no name no or ganization name procedure 06-18-2008 Patient encounter no information no name no or ganization name procedure 06-14-2008 Patient encounter no information no name no or ganization name procedure 02-22-2008 Patient encounter no information no name no or ganization name procedure 02-06-2008 Patient encounter no information no name no or ganization name - procedure 05-01-2008 01-02-2008 Patient encounter no information no name no or ganization name - procedure 01-08-2008 01-01-2008 Patient encounter no information no name no or ganization name procedure 12-15-2007 Patient encounter no information no name no or ganization name procedure 11-30-2007 Patient encounter no information no name no or ganization name procedure 11-05-2007 Patient encounter no information no name no or ganization name - procedure 11-06-2007 05-09-2007 Patient encounter no information no name no or ganization name procedure 09-15-2006 Patient encounter no information no name no or ganization name procedure 08-11-2006 Patient encounter no information no name no or ganization name procedure 01-31-2006 Patient encounter no information no name no or ganization name - procedure 01-31-2006 01-27-2006 Patient encounter no information no name no or ganization name procedure 07-31-2019 Registered Recurring no information (no phone) [facility] (no phone) 06-01-2018 Registered Recurring no information [facility] no organization name [facility] 11-08-2019 Telephone encounter Mild intellectual [facility] (no [facility] disabilities phone) [facility] (no phone) (no phone) 09-05-2018 Telephone encounter Abnormal levels of [facility] (no [facility] - other serum enzymes phone) (no phone) 09-05-2018 - 09-05-2018 11-29-2019 no information Encounter for other no name no organization name preprocedural examination no information Encounter for other no name no organiz ation name preprocedural examination Medical Equipment The data below is from unstructured sourcesNo Medical Equipment Information availableNo Medical Equipment Information availableNo Medical Equipment Information available Payers Normalized Payer Value Unknown no information [id number]) Medicare no information Medicare [id number]) Evaluation note Note Type Note Facility Evaluation No Assessments Information Available A scension note [facility] ([id number]) Summary Purpose eClinicalWorks SubmissioneClinicalWorks SubmissioneClinicalWorks SubmissioneClinicalWorks Submission Advance Directives Directive Response Recor ded Date/Time Advance Directives No 4:21pm Health Care Power of Ecological Technical Officer No 11/14/16 4:21pm Organ Donor No 11/14/16 4:21pm Resuscitation Status Full Code 11/14/16 4:21pm Directive Response Recor ded Date/Time Advance Directives No 10:49am Health Care Power of Ecological Technical Officer No 10/22/15 10:49am Organ Donor No 10/22/15 10:49am Resuscitation Status Full Code 10/22/15 10:49am Directive Response Recor ded Date/Time Advance Directives No 12:30pm Health Care Power of Ecological Technical Officer No 01/29/16 12:30pm Organ Donor No 01/29/16 12:30pm Resuscitation Status Full Code 01/29/16 12:30pm Directive Response Recor ded Date Advance Directives N 3:24pm Health Care Power of Ecological Technical Officer N 05/22/13 3:24pm Organ Donor N 05/22/13 3 :24pm Directive Response Recor ded Date/Time Advance Directives No 1:33pm Health Care Power of Ecological Technical Officer No 02/16/17 1:33pm Organ Donor No 02/16/17 1:33pm Resuscitation Status Full Code 02/16/17 1:33pm Directive Response Recor ded Date/Time Advance Directives No 1:33pm Health Care Power of Ecological Technical Officer No 02/16/17 1:33pm Organ Donor No 02/16/17 1:33pm Directive Response Recor ded Date/Time Advance Directives No 1:15pm Health Care Power of Ecological Technical Officer No 08/12/17 1:15pm Organ Donor No 08/12/17 1:15pm Resuscitation Status Full Code 08/12/17 1:15pm Directive Response Recor ded Date/Time Advance Directives No 8:33am Health Care Power of Ecological Technical Officer No 10/19/17 8:33am Organ Donor No 10/19/17 8:33am Resuscitation Status Full Code 10/19/17 8:33am Directive Response Recor ded Date/Time Advance Directives No 11:00am Health Care Power of Ecological Technical Officer No 11/21/17 11:00am Organ Donor No 11/21/17 11:00am Resuscitation Status Full Code 11/21/17 11:00am Directive Response Recor ded Date/Time Advance Directives No 12:25pm Health Care Power of Ecological Technical Officer No 03/10/18 12:25pm Organ Donor No 03/10/18 12:25pm Resuscitation Status Full Code 03/10/18 12:25pm Directive Response Recor ded Date/Time Advance Directives No 9:20am Health Care Power of Ecological Technical Officer No 06/15/18 9:20am Organ Donor No 06/15/18 9:20am Resuscitation Status Full Code 06/15/18 9:20am Directive Response Recor ded Date/Time Advance Directives No 9:40am Health Care Power of Ecological Technical Officer No 06/16/18 9:40am Organ Donor No 06/16/18 9:40am Resuscitation Status Full Code 06/16/18 9:40am Directive Response Recor ded Date/Time Advance Directives No 9:40am Health Care Power of Ecological Technical Officer No 06/16/18 9:40am Organ Donor No 06/16/18 9:40am Advance Directive Response Recorded Date/Time Advance Directives No No [email or web address] 12:11pm Health Care Power of Ecological Technical Officer No August 07, 2019 12:11pm Organ Donor No August 07, 2019 12:11pm Resuscitation Status Full Code August 07, 2019 12:11pm Discharge Instructions No hospital discharge instructions. Patient Instructions Physician Instructions New, Converted, or Re-Newed RX: RX on Chart Follow Up PRN Activity as tolerated High Fiber Diet 25g or more per day Avoid Alcohol, Caffeine, Spicy [place] and Acid foods. Drink 64 fluid oz or more of fluids per day. Symptoms to Report: Fever over 101 degree F, Nausea/Vomiting If any problems/questions: Contact your physician or go to Emergency Room Patient Instructions Physician Instructions New, Converted, or Re-Newed RX: RX on Chart Follow Up PRN Activity as tolerated High Fiber Diet 25g or more per day Avoid Alcohol, Caffeine, Spicy [place] and Acid foods. Drink 64 fluid oz or more of fluids per day. Symptoms to Report: Fever over 101 degree F, Nausea/Vomiting If any problems/questions: Contact your physician or go to Emergency Room No hospital discharge instructions.No hospital discharge instruction information available.No hospital discharge instruction information available.No hospital discharge instruction information available.No hospital discharge instruction information available.No hospital discharge instruction information available.No hospital discharge instruction information available.No hospital discharge instruction information available.No hospital discharge instruction information available.No hospital discharge instruction information available.No hospital discharge instruction information available.No hospital discharge instruction information available.No hospital discharge instruction information available. Chief Complaint and Reason for Visit Chief Complaint Trauma-Non Activatio n Reason for Visit [id number] Additional Source Comments This clinical document has been generated using [employer] software that has been certified by the Office of the National Coordinator for Health Information Technology (ONC 15.99.04.3023.Diam.31.00.0.824975) and the National Committee for Mold Release Worker (NCQA, as an eMeasure certified technology). FOR RECORDS PERTAINING TO PATIENTS WHO ARE OR HAVE BEEN ENROLLED IN A CHEMICAL D EPENDENCY/SUBSTANCE ABUSE PROGRAM, SOME INFORMATION MAY BE OMITTED. This clinica l summary was aggregated from multiple sources. Caution should be exercised in using it in the provision of clinical care. This summary normalizes information from multiple sources, and as a consequence, information in this document may ma terially change the coding, format and clinical context of patient data. In eren tion, data may be omitted in some cases. CLINICAL DECISIONS SHOULD BE BASED ON T HE PRIMARY CLINICAL RECORDS. [employer] provides no warranty or guara ntee of the accuracy or completeness of information in this document.The followi ng information is based on time limited clinical information UNRECOGNIZED CONTENT PROVIDED BELOW FOR UNRECOGNIZED SECTION MEDICAL (GENERAL) HISTORY Type Description Date Medical [...] History Gallbladder 2000 Surgical History Hysterectomy with o opherectomy 2004 Surgical History tonsillectomy 1978 Surgical History History of stress t est August 02, 2013, catheter placement in coronary artery July 2008, Surgical History hx of left chest port Surgical History hernia 2003 Surgical History D&C 200 4 Surgical History foot surgery 2005 Surgical History Port replaced 2017 Hospitalization History at least 5 i npatient BH treatments, last one in 2005 2005 and before Type Description Date Medical History Diabetes Medical [...] History Gallbladder 2000 Surgical History Hysterectomy with o opherectomy 2004 Surgical History tonsillectomy 1977 Surgical History History of stress t est August 02, 2013, catheter placement in coronary artery July 2008, Surgical History hx of left chest port Surgical History hernia 2002 Surgical History D&C 200 4 Surgical History foot surgery 2005 Surgical History Port replaced 2018 Hospitalization History at least 5 i npatient BH treatments, last one in 2005 2005 and before Hospitalization History [facility] 05/2018 UNRECOGNIZED CONTENT PROVIDED BELOW FOR UNRECOGNIZED SECTION REASON FOR VISIT premarin noteMedication question//Refill requestLab (walk-in)Requests return kim lBH f/u JjournotRNmedication requestmed refillRequests return callPATANOL notePA for eye dropsRx requestBump on head, CBRumbackRnRx changeRequests return call/r equesting return callflu shot CBrumbackRNRefill requestmed refillarm swellingnee ds physical faxedRequests return callLab (walk-in)Lab resultsmedication reaction med refillRX resendRequests return callBH f/u- abualle maMedication questionrequ est return callBH f/u Shirley QUIROS
--- OUTSIDE RECORDS SUMMARY | 2020-03-14 17:18 | XMS REPORT ---
Author Author Lata KLINE Organization [facility] Address [address] [place] [address] Care Team Providers Care Mud Grinder Name Role Phone MARILU KLINE Unavailable PROBLEMS Type Condition ICD9-CM Code CUE99-PN Code Onset Dates Condition S tatus SNOMED Code Problem Attention deficit hyperactiv ity disorder (ADHD), predominantly inattentive type F90.0 Active 05092490 Problem Irritable bowel syndrome with both constipation and diarrh ea K58.2 Active 20092465 Problem Unspecified mood [affective] disorder F39 Active 07940828 Problem Mood disorder F39 Active 357686 05 Problem Depression, unspecified depression type F32.9 Active 83120499 Problem 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 Active 339462021 Problem Irritable bowel syndrome with diarrhea K58.0 Active 244146293 Problem Simple chronic bronchitis J41.0 Acti ve 62669654 Problem Postconcussion syndrome F07.81 Active 61962266 Problem Unsteady gait R26.81 Active 020415 08 Problem Observed sleep apnea G47.30 Active 74422552 Problem Environmental allergies Z91.09 Active 325310301 Problem Moderate persistent asthma without complication J4 5.40 Active 794593901 Problem BMI 40.0-44.9, adult Z68.41 Active 350943012 Problem Hyperlipidemia, unspecified hyperlipidemia type E7 8.5 Active 46876091 Problem Contusion of left middle fin bruce without damage to nail, initial encounter S60.032A Active 06081974 Problem Peripheral vascular disease I73.9 Ac tive 778309280 Problem Major depressive disorder, single episode, mild F3 2.0 Active 46811588 Problem Supraventricular tachycardia I47.1 A ctive 9500597 Problem Rhinosinusitis J32.9 Active 35665 4004 Problem Anxiety F41.9 Active 04090078 Problem Stress incontinence in female N39.3 Active 95681771 Problem Mild intellectual disability F70 A ctive 30415555 Problem 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 Active 24884217 Problem Hallux valgus (acquired) M20.10 Activ e 41168347 Problem Atypical psychosis F29 Active 4 50426710 Problem Other chronic pain G89.29 Active 8 8349393 Problem Seasonal allergic rhinitis due to other allergic trigger J30.89 Active 542882491 ALLERGIES No Information ENCOUNTERS Encounter Location Date Diagnosis [place] [address] [address] 13 Nov, 2019 [place] [address] [address] 12 Nov, 2019 [place] [address] [address] 14 Oct, 2019 [place] [address] [address] 13 Oct, 2019 [place] [address] [address] 13 Oct, 2019 Mild intellectual disability F70 [place] [address] [address] 06 Oct, 2019 Seizures R56.9 [place] [address] [address] Sep, Stress incontinence in female N39.3 [place] [address] [address] Sep, [place] [address] [address] Sep, [place] [address] [address] Sep, Chronic sinusitis J32.9 [place] [address] [address] Sep, Morbid obesity E66.01 [place] [address] [address] Sep, [place] [address] [address] Sep, [facility] [address] [address] Sep, Mild intellectual disability F70 and Dep ression, unspecified depression type F32.9 [facility] [address] [address] 16 Sep, 2019 Seasonal allergic rhinitis due to other allergic trigger J30.89 [place] [address] [address] Sep, Seizures R56.9 [place] [address] [address] Aug, Chronic sinusitis J32.9 [place] [address] [address] Aug, [place] [address] [address] Aug, [place] [address] [address] Aug, [place] [address] [address] Aug, Rhinosinusitis J32.9 [place] [address] [address] Aug, [place] [address] [address] Jul, Encounter for immunization Z23 [place] [address] [address] Jul, [place] [address] [address] Jul, [place] [address] [address] Jul, Laceration of scalp, subsequent encounte r S01.01XD [place] [address] [address] Jul, [place] [address] [address] Jul, [place] [address] [address] Jul, [place] [address] [address] Jul, Unsteady gait R26.81 [place] [address] [address] Jul, Bilateral otitis media with effusion H65 .93 [place] [address] [address] Jul, Acute swimmer''s ear of right side H60.3 31 [place] [address] [address] Jul, Acute swimmer''s ear of right side H60.3 31 [place] [address] [address] Jun, [place] [address] [address] Jun, Other chronic pain G89.29 and Pain in le ft foot M79.672 [place] [address] [address] Jun, [place] [address] [address] Jun, [place] [address] [address] Jun, Bilious vomiting with nausea R11.14 ; Phelps llux valgus (acquired) M20.10 and Atypical psychosis F29 [place] [address] [address] Jun, Nail hypertrophy L60.2 and Self-care def icit for grooming and hygiene Z74.1 [place] [address] [address] May, [facility] [address] [address] May, [facility] [address] [address] May, [facility] [address] [address] May, [facility] [address] [address] May, [facility] [address] [address] May, [facility] [address] [address] May, Acute swimmer''s ear of right side H60.3 31 ; Abscess of thigh L02.419 and Diarrhea, unspecified type R19.7 [place] [address] [address] May, Mild intellectual disability F70 and Dep ression, unspecified depression type F32.9 [place] [address] [address] Apr, [place] [address] [address] Apr, Acute cystitis without hematuria N30.00 ; Dysuria R30.0 and Allergic contact dermatitis due to plants, except food L23.7 [facility] [address] [address] Apr, [place] [address] [address] Apr, [place] [address] [address] Apr, Bronchitis J40 ; Foreign body of right l ower leg, initial encounter S80.851A ; Peripheral vascular disease I73.9 ; Major depressive disorder, single episode, mild F32.0 ; Supraventricular tachycardia I47.1 and Morbid obesity E66.01 [place] [address] [address] Mar, Coughing R05 [place] [address] [address] Mar, [place] [address] [address] Mar, Tinea corporis B35.4 and Morbid obesity E66.01 [place] [address] [address] Feb, Mild intellectual disability F70 and Dep ression, unspecified depression type F32.9 [place] [address] [address] Feb, [place] [address] [address] Feb, [place] [address] [address] Feb, Irritable bowel syndrome with diarrhea K 58.0 [place] [address] [address] January, Coughing R05 [place] [address] [address] January, Coughing R05 [place] [address] [address] January, [place] [address] [address] January, Coughing R05 and Dizziness R42 [place] [address] [address] January, [place] [address] [address] January, Bronchitis J40 [place] [address] [address] January, [facility] [address] [address] January, Bronchitis J40 ; Nail hypertrophy L60.2 and Self-care deficit for grooming and hygiene Z74.1 [facility] [address] [address] January, [facility] [address] [address] January, Tachycardia R00.0 [facility] [address] [address] Dec, [place] [address] [address] Dec, Anxiety F41.9 [place] [address] [address] Dec, [place] [address] [address] Dec, [place] [address] [address] Dec, [place] [address] [address] Dec, Anxiety F41.9 [facility] [id number] [place] [address] Dec, [place] [address] [address] Dec, Irritable bowel syndrome with diarrhea K 58.0 [place] [address] [address] Nov, [place] [address] [address] Nov, Viral gastroenteritis A08.4 [place] [address] [address] Nov, Mild intellectual disability F70 and Dep ression, unspecified depression type F32.9 [place] [id number] [place] [id number] [place] [address] Nov, [facility] [address] [place] [id number] [place] [address] Oct, [facility] [address] [place] [id number] [place] [address] Oct, [facility] [address] [place] [id number] [place] [address] Oct, [facility] [address] [address] Oct, [facility] [address] [address] Oct, [facility] [address] [place] [id number] [place] [address] Oct, [place] [address] [place] [id number] [place] [address] Sep, [facility] [address] [place] [id number] [place] [address] Sep, SOB (shortness of breath) R06.02 and Sim ple chronic bronchitis J41.0 [place] [address] [place] [id number] [place] [address] Sep, Hyperlipidemia, unspecified hyperlipidem ia type E78.5 [place] [address] [place] [id number] [place] [address] Sep, [facility] [address] [address] Sep, Hyperlipidemia, unspecified hyperlipidem ia type E78.5 [place] [address] [place] [id number] [place] [address] Sep, [place] [address] [address] Sep, Nail hypertrophy L60.2 and Self-care def icit for grooming and hygiene Z74.1 [place] [address] [address] Sep, [place] [address] [address] Sep, [place] [address] [address] Aug, Elevated alkaline phosphatase level R74. 8 [place] [address] [address] Aug, Mild intellectual disability F70 and Dep ression, unspecified depression type F32.9 [place] [address] [address] Aug, Mild intellectual disability F70 ; Depre ssion, unspecified depression type F32.9 and BMI 45.0-49.9, adult Z68.42 [place] [address] [address] Aug, SOB (shortness of breath) R06.02 [place] [address] [address] Aug, SOB (shortness of breath) R06.02 [place] [address] [address] Aug, SOB (shortness of breath) R06.02 [place] [address] [address] Aug, Elevated alkaline phosphatase level R74. 8 [place] [address] [address] Aug, Elevated alkaline phosphatase level R74. 8 [place] [address] [address] Aug, [place] [address] [address] Aug, SOB (shortness of breath) R06.02 ; Seizu res R56.9 ; Rash R21 and BMI 45.0-49.9, adult Z68.42 [place] [address] [address] 07 Aug, 2018 SOB (shortness of breath) R06.02 ; Seizu res R56.9 ; Rash R21 and BMI 45.0-49.9, adult Z68.42 [place] [address] [address] Jul, [place] [address] [address] Jul, Contusion of left middle finger without damage to nail, initial encounter S60.032A ; Observed sleep apnea G47.30 ; Mild intellectual disability F70 and Moderate persistent asthma without complication J45.40 [place] [address] [address] Jul, [place] [address] [address] Jul, [place] [address] [address] Jul, [place] [address] [address] Jun, [place] [address] [address] Jun, [place] [address] [address] Jun, [place] [address] [address] Jun, BMI 45.0-49.9, adult Z68.42 ; Nail hyper trophy L60.2 and Self-care deficit for hygiene R46.0 [place] [address] [address] Jun, [place] [address] [address] Jun, Encounter for immunization Z23 [place] [address] [address] May, Sebaceous cyst L72.3 ; Observed sleep ap guille G47.30 and BMI 45.0-49.9, adult Z68.42 [place] [address] [address] May, [place] [address] [address] Apr, Environmental allergies Z91.09 [place] [address] [address] Apr, [place] [address] [address] Apr, Nail hypertrophy L60.2 and Self-care def icit for grooming and hygiene Z74.1 [place] [address] [address] Apr, Environmental allergies Z91.09 [place] [address] [address] Apr, [place] [address] [address] Apr, [place] [address] [address] Apr, [place] [address] [address] Apr, Environmental allergies Z91.09 [place] [address] [address] Apr, [place] [address] [address] Apr, Anxiety F41.9 [place] [address] [address] Mar, Nail hypertrophy L60.2 and Self-care def icit for hygiene R46.0 [place] [address] [address] Mar, [place] [address] [address] Mar, [facility] [address] [address] Mar, Anxiety F41.9 ; Mood disorder F39 and Dy sfunction of both eustachian tubes H69.83 [facility] [address] [address] Mar, Seizures R56.9 [place] [address] [address] Mar, Folliculitis L73.9 [place] [address] [address] Mar, Mild intellectual disability F70 ; Depre ssion, unspecified depression type F32.9 and Anxiety F41.9 [place] [address] [address] Mar, Seizures R56.9 and Folliculitis L73.9 [place] [address] [address] Feb, [place] [address] [address] Feb, Postconcussion syndrome F07.81 and Folli culitis L73.9 [place] [address] [address] Feb, Postconcussion syndrome F07.81 [place] [address] [address] Feb, [facility] [address] [id number] Feb, [facility] [address] [id number] Feb, Dental caries extending into dentin K02. 62 [place] [address] [address] January, [place] [address] [address] January, [facility] [address] [address] January, Onychomycosis B35.1 [facility] [address] [id number] January, Dental caries extending into dentin K02. 62 [facility] [address] [address] Dec, [facility] [address] [address] Dec, [facility] [address] [address] Dec, [facility] [address] [address] Dec, Mild intellectual disability F70 ; Depre ssion, unspecified depression type F32.9 ; Anxiety F41.9 and BMI 45.0-49.9, adult Z68.42 [facility] [address] [address] Dec, Folliculitis L73.9 [facility] [address] [address] Dec, Mild intellectual disability F70 ; Unste marcello gait R26.81 and Generalized weakness R53.1 [facility] [address] [id number] Nov, [facility] [address] [address] Nov, [facility] [address] [address] Nov, Folliculitis L73.9 ; Tinea corporis B35. 4 and Onychomycosis B35.1 [facility] [address] [id number] Oct, [facility] [address] [place] [address] [place] [address] Oct, Mood disorder F39 [facility] [address] [place] [id number] [place] [address] Oct, [facility] [address] [facility] [id number] [place] [address] Oct, Left hip pain M25.552 and Mu scle spasm M62.838 [facility] [address] [id number] [place] [id number] Oct, [facility] [address] [address] Oct, 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 ; Anxiety F41.9 ; Onychomycosis B35.1 ; BMI 40.0-44.9, adult Z68.41 and Alkaline phosphatase elevation R74.8 [place] [address] [place] [id number] Sep, Mild intellectual disability F70 [place] [address] [place] [id number] Sep, [place] [address] [address] Sep, Alkaline phosphatase elevation R74.8 [place] [address] [address] Sep, Alkaline phosphatase elevation R74.8 [place] [address] [address] Sep, Mood disorder F39 ; Attention deficit hy peractivity disorder (ADHD), predominantly inattentive type F90.0 ; Irritable bowel syndrome with both constipation and diarrhea K58.2 and Seizures R56.9 [place] [address] [address] Sep, Mild intellectual disability F70 ; Depre ssion, unspecified depression type F32.9 ; Anxiety F41.9 and BMI 40.0-44.9, adult Z68.41 [facility] [address] [address] Sep, [facility] [address] [address] Sep, [facility] [address] [address] Sep, [place] [address] [address] Sep, [facility] [address] [address] Sep, [facility] [address] [id number] Aug, Encounter for dental examination and ramirez aning without abnormal findings Z01.20 [facility] [address] [id number] Aug, Dental examination Z01.20 [place] [address] [address] 14 Aug, 2017 [facility] [address] [address] Aug, Depression, unspecified depression type F32.9 ; Mild intellectual disability F70 and Anxiety F41.9 [place] [address] [address] 08 Aug, 2017 Mood disorder F39 ; Attention deficit hy peractivity disorder (ADHD), predominantly inattentive type F90.0 ; Irritable bowel syndrome with both constipation and diarrhea K58.2 and Seizures R56.9 [facility] [address] [address] 05 Aug, 2017 Depression, unspecified depression type F32.9 ; Mild intellectual disability F70 and Anxiety F41.9 [facility] [address] [address] Aug, [facility] [address] [id number] Jul, Dental examination Z01.20 and Dental car ies K02.9 [facility] [address] [address] Jun, Unspecified mood [affective] disorder F3 9 and 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 [facility] [address] [id number] May, Encounter for dental examination and ramirez aning without abnormal findings Z01.20 [facility] [address] [id number] Mar, Dental examination Z01.20 [facility] [address] [id number] Sep, Dental examination Z01.20 [facility] [address] [id number] January, Dental examination Z01.20 [facility] [address] [id number] Dec, Encounter for dental examination Z01.20 [facility] [address] [id number] Dec, Dental examination Z01.20 [facility] [address] [id number] Nov, Dental examination Z01.20 [facility] [address] [id number] Jul, Encounter for dental examination Z01.20 and Dental examination Z01.20 [facility] [address] [id number] Apr, Dental examination V72.2 [facility] [address] [id number] Mar, Dental examination V72.2 [facility] [address] [address] January, [facility] [address] [address] January, [facility] [address] [address] January, [facility] [address] [facility] [id number] [place] [address] January, [facility] [address] [facility] [id number] [place] [address] Jul, IMMUNIZATIONS No Known Immunizations SOCIAL HISTORY Never Assessed REASON FOR VISIT f/u Shirley QUIROS PLAN OF CARE Activity Details Follow Up 3 Months Reason: VITAL SIGNS Height 59 in 2018-12-11 Heart Rate 90 bpm 2018-12-11 Respiratory Rate 20 2018-12-11 Blood pressure systolic 122 mmHg 2018-12-11 Blood pressure diastolic 78 mmHg 2018-12-11 MEDICATIONS Medication Instructions Dosage Frequency Start Date End Date Duration S tatus Patanol 0.1 % Ophthalmic Twice a day 1 drop into each eye 12h Apr, 30 days Active Estradiol 0.5 MG Orally Once a day 1 tablet 24h 30 Active Flonase 50 MCG/ACT Nasally Once a day 1 spray in each nostril 24h Mar, Active Verapamil HCl ER 120 MG Orally Once a day 1 tablet 24h 30 Active Lamotrigine 100 MG Orally Twice a day 1 tablet 12h Active Avelox 400 MG Orally Once a day 1 tablet 24h Oct, 10 day(s) Active Xopenex 1.25 MG/3ML Inhalation 4 times a day 3 ml 6h Sep, 9 Active Budesonide - Inhalation 2 times a day 2 puffs 12h Aug, 30 days Active Topiramate 100 mg Orally Twice a day 1 tablet 12h Active Phenytoin 100 mg 3 tablets 12h 30 Activ e PredniSONE 20 mg Orally Once a day 1 tablet 24h Nov, 5 days Active HydrOXYzine Pamoate 25 MG Orally Once a day 1 capsule as needed 24h Apr, Active Aspirin 81 MG 1 tablet Active Strattera 100 mg Orally Once a day 1 capsule 24h Active Lotrisone 1-0.05 % Externally Twice a day 1 application to affected a yarely 12h 7 Active Guaifenesin 400 mg Orally every 4 hrs 1 tablet as needed 4h Sep, Active Meclizine HCl 25 MG TAKE 1 TABLET BY MOUTH 4 TIMES DAILY NEED ED 23 Active Phenytoin Sodium Extended 100 MG TAKE 3 CAPSULES BY MOUTH TW ICE DAILY 30 Active Amitriptyline HCl 50 mg Orally Once a day, at hs 1 tablet Active Flovent HFA 110 MCG/ACT Inhalation Twice a day 1 puff 12h 30 Active Keflex 500 mg Orally 3 times a day 1 capsule 8h 06 Oct, 2018 10 day(s) Active Dicyclomine HCl 20MG TAKE TWO TABLETS BY MOUTH 4 TIMES DAILY Active Nebulizer - as directed Jul, Act cindi Protonix 40 mg Orally Once a day 1 tablet 24h 30 Active Simvastatin 20 mg Orally Once a day 1 tablet 24h 30 Active Nystatin 508757 unit/gm Externally Twice a day 1 application to affected area 12h Jun, Active VESIcare 5 mg Orally Once a day 1 tablet 24h Active Elmiron 100 mg Orally Three times a day 1 capsule on an empty stomach 8h Active Montelukast Sodium 10MG TAKE ONE TABLET BY MOUTH ONCE DAILY 30 Active One-A-Day Bone Strength Active Calcium 600-400 MG-UNIT Orally Once a day 24h Active Ventolin HFA 108 (90 Base) MCG/ACT Inhalation every 6 hrs 2 puffs a s needed 6h 25 Active Ibuprofen 800 MG Orally Three times a day 1 tablet with food or milk as needed 8h Oct, Active RESULTS No Results PROCEDURES Procedure Date Ordered Result Body Site [facility] VISIT ESTABLISHED PATIENT December 11, 2018 INSTRUCTIONS MEDICATIONS ADMINISTERED No Known Medications MEDICAL (GENERAL) HISTORY Type Description Date Medical History Diabetes Medical History HEP A Medical History Seizures Medical History Back trouble Medical History ADHD Medical History hx of abnormal EKG Medical History strabismus Medical History asthma Medical History hyperlipidemia Medical History hx of hepatitis A Medical History sleep apnea Medical History hx tachycardia Medical History seasonal allergies Medical History endometriosis Surgical History Psychaitric Surgical History R Foot Surgery X 6 Surgical History L foot surgery X 8 Surgical History DNC Surgical History Appendix Surgical History Gallbladder 2000 Surgical History Hysterectomy with oopherectomy 2004 Surgical History tonsillectomy 1977 Surgical History History of stress test Novem hao 2012, catheter placement in coronary artery July 2008, Surgical History hx of left chest port Surgical History hernia 2002 Surgical History D&C 2003 Surgical History foot surgery 2005 Surgical History Port replaced 2017 Hospitalization History at least 5 inpatient treatments, last one in 2005 2005 and before Hospitalization History [facility] 05/2018
--- OUTSIDE RECORDS SUMMARY | 2020-03-14 17:18 | XMS REPORT ---
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 Active 148340307 Problem Unspecified mood [affective] disorder F39 Active 94052965 Problem Simple chronic bronchitis J41.0 Acti ve 70386214 Problem Hyperlipidemia, unspecified hyperlipidemia type E7 8.5 Active 52449060 Problem Unsteady gait R26.81 Active 824991 08 Problem 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 Active 71729886 Problem Environmental allergies Z91.09 Active 585760311 Problem Postconcussion syndrome F07.81 Active 36277130 Problem BMI 40.0-44.9, adult Z68.41 Active 959870212 Problem Observed sleep apnea G47.30 Active 26578338 Problem Contusion of left middle fin bruce without damage to nail, initial encounter S60.032A Active 60381770 Problem Moderate persistent asthma without complication J4 5.40 Active 517618429 Problem Irritable bowel syndrome with diarrhea K58.0 Active 604824030 Problem Peripheral vascular disease I73.9 Ac tive 627960455 Problem Major depressive disorder, single episode, mild F3 2.0 Active 08270894 Problem Seasonal allergic rhinitis due to other allergic trigger J30.89 Active 692672654 Problem Mild intellectual disability F70 A ctive 91700079 Problem Rhinosinusitis J32.9 Active 23213 4004 Problem Depression, unspecified depression type F32.9 Active 94305500 Problem Anxiety F41.9 Active 45743373 Problem Supraventricular tachycardia I47.1 A ctive 1555759 Problem Hallux valgus (acquired) M20.10 Activ e 37679034 Problem Atypical psychosis F29 Active 4 26139503 Problem Other chronic pain G89.29 Active 8 3624975 ALLERGIES No Information ENCOUNTERS Encounter Location Date Diagnosis [place] [address] [address] 13 Nov, 2019 [place] [address] [address] 12 Nov, 2019 [place] [address] [address] 14 Oct, 2019 [place] [address] [address] Sep, [place] [address] [address] Sep, [place] [address] [address] Sep, [place] [address] [address] Sep, Chronic sinusitis J32.9 [place] [address] [address] Sep, Morbid obesity E66.01 [place] [address] [address] Sep, [place] [address] [address] Sep, [place] [address] [address] Sep, Mild intellectual disability F70 and Dep ression, unspecified depression type F32.9 [place] [address] [address] Sep, Seasonal allergic rhinitis due to other allergic trigger J30.89 [place] [address] [address] Sep, Seizures R56.9 [facility] [address] [address] Aug, Chronic sinusitis J32.9 [facility] [address] [address] Aug, [facility] [address] [address] Aug, [facility] [address] [address] Aug, [facility] [address] [address] Aug, Rhinosinusitis J32.9 [facility] [address] [address] Aug, [facility] [address] [address] Jul, Encounter for immunization Z23 [facility] [address] [address] Jul, [facility] [address] [address] Jul, [facility] [address] [address] Jul, Laceration of scalp, subsequent encounte r S01.01XD [facility] [address] [address] Jul, [facility] [address] [address] Jul, [facility] [address] [address] Jul, [facility] [address] [address] Jul, Unsteady gait R26.81 [facility] [address] [address] Jul, Bilateral otitis media with effusion H65 .93 [place] [address] [address] Jul, Acute swimmer''s ear of right side H60.3 31 [facility] [address] [address] Jul, Acute swimmer''s ear of right side H60.3 31 [facility] [address] [address] Jun, [place] [address] [address] Jun, Other chronic pain G89.29 and Pain in le ft foot M79.672 [place] [address] [address] Jun, [place] [address] [address] Jun, [place] [address] [address] Jun, Bilious vomiting with nausea R11.14 ; Phelps llux valgus (acquired) M20.10 and Atypical psychosis F29 [address] [address] Jun, Nail hypertrophy L60.2 and Self-care def icit for grooming and hygiene Z74.1 [place] [address] [address] May, [place] [address] [address] May, [place] [address] [address] May, [place] [address] [address] May, [place] [address] [address] May, [place] [address] [address] May, [place] [address] [place] [address] May, Acute swimmer''s ear of right side H60.3 31 ; Abscess of thigh L02.419 and Diarrhea, unspecified type R19.7 [place] [address] [address] May, Mild intellectual disability F70 and Dep ression, unspecified depression type F32.9 [place] [address] [address] Apr, [place] [address] [address] Apr, Acute cystitis without hematuria N30.00 ; Dysuria R30.0 and Allergic contact dermatitis due to plants, except food L23.7 [place] [address] [address] Apr, [place] [address] [address] Apr, [place] [address] [address] Apr, Bronchitis J40 ; Foreign body of right l ower leg, initial encounter S80.851A ; Peripheral vascular disease I73.9 ; Major depressive disorder, single episode, mild F32.0 ; Supraventricular tachycardia I47.1 and Morbid obesity E66.01 [place] [address] [address] Mar, Coughing R05 [place] [address] [address] Mar, [place] [address] [address] Mar, Tinea corporis B35.4 and Morbid obesity E66.01 [place] [address] [address] 18 Feb, 2019 Mild intellectual disability F70 and Dep ression, unspecified depression type F32.9 [place] [address] [address] Feb, [place] [address] [address] Feb, [place] [address] [address] Feb, Irritable bowel syndrome with diarrhea K 58.0 [place] [address] [address] January, Coughing R05 [place] [address] [address] January, Coughing R05 [place] [address] [address] January, [place] [address] [address] January, Coughing R05 and Dizziness R42 [place] [address] [address] January, [place] [address] [address] January, Bronchitis J40 [place] [address] [address] January, [place] [address] [address] January, Bronchitis J40 ; Nail hypertrophy L60.2 and Self-care deficit for grooming and hygiene Z74.1 [place] [address] [address] January, [place] [address] [address] January, Tachycardia R00.0 [place] [address] [place] [id number] [place] [address] Dec, [facility] [address] [place] [id number] [place] [address] Dec, Anxiety F41.9 [facility] [address] [place] [id number] [place] [address] Dec, [facility] [address] [place] [id number] [place] [address] Dec, [facility] [address] [place] [id number] [place] [address] Dec, [facility] [address] [place] [id number] [place] [address] Dec, Anxiety F41.9 [facility] [address] [facility] [place] [id number] [place] [address] Dec, [facility] [address] [place] [id number] [place] [address] Dec, Irritable bowel syndrome with diarrhea K 58.0 [facility] [address] [place] [id number] [place] [address] Nov, [facility] [address] [place] [id number] [place] [address] Nov, Viral gastroenteritis A08.4 [facility] [address] [place] [id number] [place] [address] Nov, Mild intellectual disability F70 and Dep ression, unspecified depression type F32.9 [facility] [address] [place] [id number] [place] [address] Nov, [facility] [address] [place] [id number] [place] [address] Oct, [facility] [address] [place] [id number] [place] [address] Oct, [facility] [address] [place] [id number] [place] [address] Oct, [facility] [address] [place] [address] [place] [address] Oct, [place] [address] [address] Oct, [place] [address] [address] Oct, [place] [address] [address] Sep, [place] [address] [address] Sep, SOB (shortness of breath) R06.02 and Sim ple chronic bronchitis J41.0 [place] [address] [address] Sep, Hyperlipidemia, unspecified hyperlipidem ia type E78.5 [place] [address] [address] Sep, [place] [address] [address] Sep, Hyperlipidemia, unspecified hyperlipidem ia type E78.5 [place] [address] [address] Sep, [place] [address] [address] Sep, Nail hypertrophy L60.2 and Self-care def icit for grooming and hygiene Z74.1 [place] [address] [address] Sep, [place] [address] [address] Sep, [place] [address] [address] Aug, Elevated alkaline phosphatase level R74. 8 [place] [address] [address] Aug, Mild intellectual disability F70 and Dep ression, unspecified depression type F32.9 [place] [address] [address] 18 Aug, 2018 Mild intellectual disability F70 ; Depre ssion, unspecified depression type F32.9 and BMI 45.0-49.9, adult Z68.42 [place] [address] [address] 18 Aug, 2018 SOB (shortness of breath) R06.02 [place] [address] [address] Aug, SOB (shortness of breath) R06.02 [place] [address] [address] Aug, SOB (shortness of breath) R06.02 [place] [address] [address] 11 Aug, 2018 Elevated alkaline phosphatase level R74. 8 [place] [address] [address] Aug, Elevated alkaline phosphatase level R74. 8 [place] [address] [address] Aug, [place] [address] [address] Aug, SOB (shortness of breath) R06.02 ; Seizu res R56.9 ; Rash R21 and BMI 45.0-49.9, adult Z68.42 [place] [address] [address] 07 Aug, 2018 SOB (shortness of breath) R06.02 ; Seizu res R56.9 ; Rash R21 and BMI 45.0-49.9, adult Z68.42 [place] [address] [address] Jul, [place] [address] [address] Jul, Contusion of left middle finger without damage to nail, initial encounter S60.032A ; Observed sleep apnea G47.30 ; Mild intellectual disability F70 and Moderate persistent asthma without complication J45.40 [place] [address] [address] 14 Jul, 2018 [place] [address] [address] Jul, [place] [address] [address] Jul, [place] [address] [address] Jun, [place] [address] [address] Jun, [place] [address] [address] Jun, [place] [address] [address] Jun, BMI 45.0-49.9, adult Z68.42 ; Nail hyper trophy L60.2 and Self-care deficit for hygiene R46.0 [place] [address] [address] Jun, [place] [address] [address] Jun, Encounter for immunization Z23 [place] [address] [address] May, Sebaceous cyst L72.3 ; Observed sleep ap guille G47.30 and BMI 45.0-49.9, adult Z68.42 [place] [address] [address] May, [place] [address] [address] Apr, Environmental allergies Z91.09 [place] [address] [address] Apr, [facility] [address] [address] Apr, Nail hypertrophy L60.2 and Self-care def icit for grooming and hygiene Z74.1 [place] [address] [address] Apr, Environmental allergies Z91.09 [place] [address] [address] Apr, [place] [address] [address] Apr, [place] [address] [address] Apr, [place] [address] [address] Apr, Environmental allergies Z91.09 [place] [address] [address] Apr, [place] [address] [address] Apr, Anxiety F41.9 [place] [address] [address] Mar, Nail hypertrophy L60.2 and Self-care def icit for hygiene R46.0 [place] [address] [address] Mar, [place] [address] [address] Mar, [place] [address] [address] Mar, Anxiety F41.9 ; Mood disorder F39 and Dy sfunction of both eustachian tubes H69.83 [place] [address] [address] Mar, Seizures R56.9 [place] [address] [address] Mar, Folliculitis L73.9 [facility] [address] [address] Mar, Mild intellectual disability F70 ; Depre ssion, unspecified depression type F32.9 and Anxiety F41.9 [facility] [address] [address] Mar, Seizures R56.9 and Folliculitis L73.9 [facility] [address] [address] Feb, [place] [address] [address] Feb, Postconcussion syndrome F07.81 and Folli culitis L73.9 [place] [address] [address] Feb, Postconcussion syndrome F07.81 [facility] [address] [address] Feb, [facility] [address] [id number] Feb, [facility] [address] [id number] Feb, Dental caries extending into dentin K02. 62 [facility] [address] [address] January, [facility] [address] [address] January, [facility] [address] [address] January, Onychomycosis B35.1 [facility] [address] [id number] January, Dental caries extending into dentin K02. 62 [facility] [address] [address] Dec, [place] [address] [address] Dec, [facility] [address] [address] Dec, [place] [address] [address] Dec, Mild intellectual disability F70 ; Depre ssion, unspecified depression type F32.9 ; Anxiety F41.9 and BMI 45.0-49.9, adult Z68.42 [facility] [address] [address] Dec, Folliculitis L73.9 [place] [address] [address] Dec, Mild intellectual disability F70 ; Unste marcello gait R26.81 and Generalized weakness R53.1 [facility] [address] [id number] Nov, [facility] [address] [address] Nov, [facility] [address] [address] Nov, Folliculitis L73.9 ; Tinea corporis B35. 4 and Onychomycosis B35.1 [facility] [address] [id number] Oct, [facility] [address] [address] Oct, Mood disorder F39 [facility] [address] [address] Oct, [facility] [address] [facility] [id number] [place] [address] Oct, Left hip pain M25.552 and Mu scle spasm M62.838 [facility] [address] [id number] Oct, [place] [address] [address] Oct, 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 ; Anxiety F41.9 ; Onychomycosis B35.1 ; BMI 40.0-44.9, adult Z68.41 and Alkaline phosphatase elevation R74.8 [place] [address] [address] Sep, Mild intellectual disability F70 [place] [address] [address] Sep, [place] [address] [address] Sep, Alkaline phosphatase elevation R74.8 [place] [address] [address] Sep, Alkaline phosphatase elevation R74.8 [place] [address] [address] Sep, Mood disorder F39 ; Attention deficit hy peractivity disorder (ADHD), predominantly inattentive type F90.0 ; Irritable bowel syndrome with both constipation and diarrhea K58.2 and Seizures R56.9 [place] [address] [address] Sep, Mild intellectual disability F70 ; Depre ssion, unspecified depression type F32.9 ; Anxiety F41.9 and BMI 40.0-44.9, adult Z68.41 [place] [address] [address] Sep, [place] [address] [address] Sep, [place] [address] [address] Sep, [place] [address] [address] Sep, [place] [address] [place] [address] Sep, [facility] [address] [id number] Aug, Encounter for dental examination and ramirez aning without abnormal findings Z01.20 [facility] [address] [id number] Aug, Dental examination Z01.20 [place] [address] [address] Aug, [place] [address] [address] Aug, Depression, unspecified depression type F32.9 ; Mild intellectual disability F70 and Anxiety F41.9 [place] [address] [address] 08 Aug, 2017 Mood disorder F39 ; Attention deficit hy peractivity disorder (ADHD), predominantly inattentive type F90.0 ; Irritable bowel syndrome with both constipation and diarrhea K58.2 and Seizures R56.9 [place] [address] [address] Aug, Depression, unspecified depression type F32.9 ; Mild intellectual disability F70 and Anxiety F41.9 [place] [address] [address] Aug, [facility] [address] [id number] Jul, Dental examination Z01.20 and Dental car ies K02.[address] [address] Jun, Unspecified mood [affective] disorder F3 9 and 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 [facility] [address] [id number] May, Encounter for dental examination and ramirez aning without abnormal findings Z01.20 [facility] [address] [id number] Mar, Dental examination Z01.20 [facility] [address] [id number] Sep, Dental examination Z01.20 [facility] [address] [id number] January, Dental examination Z01.20 [facility] [address] [id number] Dec, Encounter for dental examination Z01.20 [facility] [address] [id number] Dec, Dental examination Z01.20 [facility] [address] [id number] Nov, Dental examination Z01.20 [facility] [address] [id number] Jul, Encounter for dental examination Z01.20 and Dental examination Z01.20 [facility] [address] [id number] Apr, Dental examination V72.2 [facility] [address] [id number] Mar, Dental examination V72.2 [facility] [address] [address] January, [facility] [address] [address] January, [facility] [address] [place] [address] January, [facility] [address] [address] January, [facility] [address] [place] [id number] Jul, IMMUNIZATIONS No Known Immunizations SOCIAL HISTORY [...] Surgical History History of stress test Novem 2012, catheter placement in coronary artery July 2008, Surgical History hx of left chest port Surgical History hernia 2002 Surgical History D&C 2004 Surgical History foot surgery 2006 Surgical History Port replaced 2018 Hospitalization History at least 5 inpatient treatments, last one in 2005 2005 and before Hospitalization History [facility] 05/2018
--- OUTSIDE RECORDS SUMMARY | 2020-03-14 17:18 | XMS REPORT ---
Author Author Lata BEE Organization [facility] Address [address] [place] [address] Care Team Providers Care Apprentice Instrument Technician Name Role Phone LISA BEE Unavailable PROBLEMS Type Condition ICD9-CM Code JCI50-IF Code Onset Dates Condition S tatus SNOMED Code Problem Attention deficit hyperactiv ity disorder (ADHD), predominantly inattentive type F90.0 Active 91672529 Problem Irritable bowel syndrome with both constipation and diarrh ea K58.2 Active 96325046 Problem Unspecified mood [affective] disorder F39 Active 09413111 Problem Mood disorder F39 Active 698824 05 Problem Depression, unspecified depression type F32.9 Active 35107759 Problem 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 Active 525158272 Problem Irritable bowel syndrome with diarrhea K58.0 Active 209654534 Problem Simple chronic bronchitis J41.0 Acti ve 23824859 Problem Postconcussion syndrome F07.81 Active 54107093 Problem Unsteady gait R26.81 Active 495804 08 Problem Observed sleep apnea G47.30 Active 59456332 Problem Environmental allergies Z91.09 Active 670690275 Problem Moderate persistent asthma without complication J4 5.40 Active 133617682 Problem BMI 40.0-44.9, adult Z68.41 Active 752648635 Problem Hyperlipidemia, unspecified hyperlipidemia type E7 8.5 Active 79935506 Problem Contusion of left middle fin bruce without damage to nail, initial encounter S60.032A Active 44452458 Problem Peripheral vascular disease I73.9 Ac tive 857885205 Problem Major depressive disorder, single episode, mild F3 2.0 Active 32877396 Problem Supraventricular tachycardia I47.1 A ctive 0133341 Problem Rhinosinusitis J32.9 Active 25807 4004 Problem Anxiety F41.9 Active 54407916 Problem Stress incontinence in female N39.3 Active 04299854 Problem Mild intellectual disability F70 A ctive 54099456 Problem 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 Active 38933163 Problem Hallux valgus (acquired) M20.10 Activ e 59952318 Problem Atypical psychosis F29 Active 4 00993811 Problem Other chronic pain G89.29 Active 8 6173760 Problem Seasonal allergic rhinitis due to other allergic trigger J30.89 Active 995855325 ALLERGIES No Information ENCOUNTERS Encounter Location Date Diagnosis [place] [address] [address] 13 Nov, 2019 [place] [address] [address] 12 Nov, 2019 [place] [address] [address] 14 Oct, 2019 [place] [address] [address] 06 Oct, 2019 Seizures R56.9 [place] [address] [address] Sep, Stress incontinence in female N39.3 [place] [address] [address] Sep, [place] [address] [address] Sep, [place] [address] [address] Sep, Chronic sinusitis J32.9 [place] [address] [address] Sep, Morbid obesity E66.01 [place] [address] [address] Sep, [place] [address] [address] Sep, [place] [address] [address] Sep, Mild intellectual disability F70 and Dep ression, unspecified depression type F32.9 [facility] [address] [address] 16 Sep, 2019 Seasonal allergic rhinitis due to other allergic trigger J30.89 [place] [address] [address] Sep, Seizures R56.9 [facility] [address] [address] Aug, Chronic sinusitis J32.9 [facility] [address] [address] Aug, [place] [address] [address] Aug, [place] [address] [address] Aug, [place] [address] [address] Aug, Rhinosinusitis J32.9 [place] [address] [address] Aug, [place] [address] [address] Jul, Encounter for immunization Z23 [place] [address] [address] Jul, [place] [address] [address] Jul, [place] [address] [address] Jul, Laceration of scalp, subsequent encounte r S01.01XD [place] [address] [address] Jul, [place] [address] [address] Jul, [place] [address] [address] Jul, [place] [address] [address] Jul, Unsteady gait R26.81 [place] [address] [address] Jul, Bilateral otitis media with effusion H65 .93 [place] [address] [address] Jul, Acute swimmer''s ear of right side H60.3 31 [place] [address] [address] Jul, Acute swimmer''s ear of right side H60.3 31 [place] [address] [address] Jun, [place] [address] [address] Jun, Other chronic pain G89.29 and Pain in le ft foot M79.672 [place] [address] [address] Jun, [address] [address] Jun, [address] [address] Jun, Bilious vomiting with nausea R11.14 ; Phelps llux valgus (acquired) M20.10 and Atypical psychosis F29 [address] [address] Jun, Nail hypertrophy L60.2 and Self-care def icit for grooming and hygiene Z74.[address] [address] May, [place] [address] [address] May, [place] [address] [address] May, [place] [address] [address] May, [place] [address] [address] May, [place] [address] [address] May, [place] [address] [address] May, Acute swimmer''s ear of right side H60.3 31 ; Abscess of thigh L02.419 and Diarrhea, unspecified type R19.[address] [address] May, Mild intellectual disability F70 and Dep ression, unspecified depression type F32.9 [place] [address] [address] Apr, [place] [address] [address] Apr, Acute cystitis without hematuria N30.00 ; Dysuria R30.0 and Allergic contact dermatitis due to plants, except food L23.7 [place] [address] [address] Apr, [place] [address] [address] Apr, [address] [address] Apr, Bronchitis J40 ; Foreign body of right l ower leg, initial encounter S80.851A ; Peripheral vascular disease I73.9 ; Major depressive disorder, single episode, mild F32.0 ; Supraventricular tachycardia I47.1 and Morbid obesity E66.01 [place] [address] [address] Mar, Coughing R05 [place] [address] [address] Mar, [place] [address] [address] Mar, Tinea corporis B35.4 and Morbid obesity E66.01 [place] [address] [address] Feb, Mild intellectual disability F70 and Dep ression, unspecified depression type F32.9 [place] [address] [address] Feb, [place] [address] [address] Feb, [place] [address] [address] Feb, Irritable bowel syndrome with diarrhea K 58.0 [place] [address] [address] January, Coughing R05 [place] [address] [address] January, Coughing R05 [place] [address] [address] January, [place] [address] [address] January, Coughing R05 and Dizziness R42 [place] [address] [address] January, [place] [address] [address] January, Bronchitis J40 [place] [address] [address] January, [place] [address] [address] January, Bronchitis J40 ; Nail hypertrophy L60.2 and Self-care deficit for grooming and hygiene Z74.1 [place] [address] [address] January, [facility] [address] [address] January, Tachycardia R00.0 [facility] [address] [address] Dec, [facility] [address] [address] Dec, Anxiety F41.9 [facility] [address] [address] Dec, [facility] [address] [address] Dec, [facility] [address] [address] Dec, [facility] [address] [address] Dec, Anxiety F41.9 [facility] [address] [facility] [place] [address] Dec, [facility] [address] [address] Dec, Irritable bowel syndrome with diarrhea K 58.0 [facility] [address] [address] Nov, [facility] [address] [address] Nov, Viral gastroenteritis A08.4 [facility] [address] [address] Nov, Mild intellectual disability F70 and Dep ression, unspecified depression type F32.9 [facility] [address] [address] Nov, [facility] [address] [address] Oct, [facility] [address] [address] Oct, [facility] [address] [address] Oct, [facility] [address] [address] Oct, [facility] [address] [address] Oct, [facility] [address] [address] Oct, [facility] [address] [address] Sep, [place] [address] [address] Sep, SOB (shortness of breath) R06.02 and Sim ple chronic bronchitis J41.0 [place] [address] [address] Sep, Hyperlipidemia, unspecified hyperlipidem ia type E78.5 [place] [address] [address] Sep, [place] [address] [address] Sep, Hyperlipidemia, unspecified hyperlipidem ia type E78.5 [place] [address] [address] Sep, [place] [address] [address] Sep, Nail hypertrophy L60.2 and Self-care def icit for grooming and hygiene Z74.1 [place] [address] [address] Sep, [facility] [address] [address] Sep, [place] [address] [address] Aug, Elevated alkaline phosphatase level R74. 8 [place] [address] [address] 27 Aug, 2018 Mild intellectual disability F70 and Dep ression, unspecified depression type F32.9 [place] [address] [address] Aug, Mild intellectual disability F70 ; Depre ssion, unspecified depression type F32.9 and BMI 45.0-49.9, adult Z68.42 [place] [address] [address] 18 Aug, 2018 SOB (shortness of breath) R06.02 [place] [address] [address] Aug, SOB (shortness of breath) R06.02 [place] [address] [address] 12 Aug, 2018 SOB (shortness of breath) R06.02 [place] [address] [address] Aug, Elevated alkaline phosphatase level R74. 8 [place] [address] [address] Aug, Elevated alkaline phosphatase level R74. 8 [place] [address] [address] Aug, [place] [address] [address] Aug, SOB (shortness of breath) R06.02 ; Seizu res R56.9 ; Rash R21 and BMI 45.0-49.9, adult Z68.42 [place] [address] [place] [address] 07 Aug, 2018 SOB (shortness of breath) R06.02 ; Seizu res R56.9 ; Rash R21 and BMI 45.0-49.9, adult Z68.42 [place] [address] [address] Jul, [place] [address] [address] Jul, Contusion of left middle finger without damage to nail, initial encounter S60.032A ; Observed sleep apnea G47.30 ; Mild intellectual disability F70 and Moderate persistent asthma without complication J45.40 [place] [address] [address] Jul, [place] [address] [address] Jul, [place] [address] [address] Jul, [place] [address] [address] Jun, [place] [address] [address] Jun, [place] [address] [address] Jun, [place] [address] [address] Jun, BMI 45.0-49.9, adult Z68.42 ; Nail hyper trophy L60.2 and Self-care deficit for hygiene R46.0 [place] [address] [address] Jun, [place] [address] [address] Jun, Encounter for immunization Z23 [place] [address] [address] May, Sebaceous cyst L72.3 ; Observed sleep ap guille G47.30 and BMI 45.0-49.9, adult Z68.42 [place] [address] [address] May, [facility] [address] [address] Apr, Environmental allergies Z91.09 [facility] [address] [address] Apr, [place] [address] [address] Apr, Nail hypertrophy L60.2 and Self-care def icit for grooming and hygiene Z74.1 [place] [address] [address] Apr, Environmental allergies Z91.09 [place] [address] [address] Apr, [place] [address] [address] Apr, [place] [address] [address] Apr, [place] [address] [address] 08 Apr, 2018 Environmental allergies Z91.09 [place] [address] [address] Apr, [place] [address] [address] Apr, Anxiety F41.9 [place] [address] [address] Mar, Nail hypertrophy L60.2 and Self-care def icit for hygiene R46.0 [place] [address] [address] Mar, [place] [address] [address] Mar, [place] [address] [address] Mar, Anxiety F41.9 ; Mood disorder F39 and Dy sfunction of both eustachian tubes H69.83 [facility] [address] [address] Mar, Seizures R56.9 [facility] [address] [address] Mar, Folliculitis L73.9 [facility] [address] [address] Mar, Mild intellectual disability F70 ; Depre ssion, unspecified depression type F32.9 and Anxiety F41.9 [facility] [address] [address] Mar, Seizures R56.9 and Folliculitis L73.9 [facility] [address] [address] Feb, [facility] [address] [address] Feb, Postconcussion syndrome F07.81 and Folli culitis L73.9 [facility] [address] [address] Feb, Postconcussion syndrome F07.81 [facility] [address] [address] Feb, [facility] [address] [id number] Feb, [facility] [address] [id number] Feb, Dental caries extending into dentin K02. 62 [facility] [address] [address] January, [facility] [address] [address] January, [facility] [address] [address] January, Onychomycosis B35.1 [facility] [address] [id number] January, Dental caries extending into dentin K02. 62 [facility] [address] [address] Dec, [facility] [address] [address] Dec, [facility] [address] [address] Dec, [facility] [address] [address] Dec, Mild intellectual disability F70 ; Depre ssion, unspecified depression type F32.9 ; Anxiety F41.9 and BMI 45.0-49.9, adult Z68.42 [facility] [address] [address] Dec, Folliculitis L73.9 [place] [address] [address] Dec, Mild intellectual disability F70 ; Unste marcello gait R26.81 and Generalized weakness R53.1 [facility] [address] [id number] Nov, [facility] [address] [address] Nov, [facility] [address] [address] Nov, Folliculitis L73.9 ; Tinea corporis B35. 4 and Onychomycosis B35.1 [facility] [address] [id number] Oct, [facility] [address] [address] Oct, Mood disorder F39 [facility] [address] [address] Oct, [facility] [address] [id number] [place] [address] Oct, Left hip pain M25.552 and Mu scle spasm M62.838 [facility] [address] [place] [id number] [place] [id number] Oct, [facility] [address] [address] Oct, 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 ; Anxiety F41.9 ; Onychomycosis B35.1 ; BMI 40.0-44.9, adult Z68.41 and Alkaline phosphatase elevation R74.8 [place] [address] [place] [address] Sep, Mild intellectual disability F70 [place] [address] [place] [id number] Sep, [place] [address] [place] [id number] Sep, Alkaline phosphatase elevation R74.8 [place] [address] [address] Sep, Alkaline phosphatase elevation R74.8 [place] [address] [address] Sep, Mood disorder F39 ; Attention deficit hy peractivity disorder (ADHD), predominantly inattentive type F90.0 ; Irritable bowel syndrome with both constipation and diarrhea K58.2 and Seizures R56.9 [place] [address] [address] Sep, Mild intellectual disability F70 ; Depre ssion, unspecified depression type F32.9 ; Anxiety F41.9 and BMI 40.0-44.9, adult Z68.41 [facility] [address] [place] [address] Sep, [facility] [address] [address] Sep, [facility] [address] [address] Sep, [facility] [address] [address] Sep, [facility] [address] [place] [id number] Sep, [facility] [address] [id number] Aug, Encounter for dental examination and ramirez aning without abnormal findings Z01.20 [facility] [address] [id number] Aug, Dental examination Z01.20 [facility] [address] [address] 14 Aug, 2017 [place] [address] [address] Aug, Depression, unspecified depression type F32.9 ; Mild intellectual disability F70 and Anxiety F41.9 [place] [address] [address] 08 Aug, 2017 Mood disorder F39 ; Attention deficit hy peractivity disorder (ADHD), predominantly inattentive type F90.0 ; Irritable bowel syndrome with both constipation and diarrhea K58.2 and Seizures R56.[address] [address] 05 Aug, 2017 Depression, unspecified depression type F32.9 ; Mild intellectual disability F70 and Anxiety F41.9 [facility] [address] [address] Aug, [facility] [address] [id number] Jul, Dental examination Z01.20 and Dental car ies K02.9 [facility] [address] [place] [address] Jun, Unspecified mood [affective] disorder F3 9 and 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 [facility] [address] [id number] May, Encounter for dental examination and ramirez aning without abnormal findings Z01.20 [facility] [address] [id number] Mar, Dental examination Z01.20 [facility] [address] [id number] Sep, Dental examination Z01.20 [facility] [address] [id number] January, Dental examination Z01.20 [facility] [address] [id number] Dec, Encounter for dental examination Z01.20 [facility] [address] [id number] Dec, Dental examination Z01.20 [facility] [address] [id number] Nov, Dental examination Z01.20 [facility] [address] [id number] Jul, Encounter for dental examination Z01.20 and Dental examination Z01.20 [facility] [address] [id number] Apr, Dental examination V72.2 [facility] [address] [id number] Mar, Dental examination V72.2 [facility] [address] [address] January, [facility] [address] [address] January, [facility] [address] [address] January, [facility] [address] [address] January, [facility] [address] [address] Jul, IMMUNIZATIONS No Known Immunizations SOCIAL HISTORY Never Assessed REASON FOR VISIT PLAN OF CARE VITAL SIGNS MEDICATIONS Unknown Medications RESULTS No Results PROCEDURES Procedure Date Ordered Result Body Site PSYCH DIAGNOSTIC EVALUATION January 30, 2014 INSTRUCTIONS MEDICATIONS ADMINISTERED No Known Medications MEDICAL [...] History D&C 2003 Surgical History foot surgery 2006 Surgical History Port replaced 2018 Hospitalization History at least 5 inpatient treatments, last one in 2005 2005 and before Hospitalization History [facility] 05/2018
--- OUTSIDE RECORDS SUMMARY | 2020-03-14 17:19 | XMS REPORT ---
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 Active 18793750 Problem Contusion of left middle fin bruce without damage to nail, initial encounter S60.032A Active 18953132 Problem Moderate persistent asthma without complication J4 5.40 Active 651488773 Problem Environmental allergies Z91.09 Active 689549480 Problem Postconcussion syndrome F07.81 Active 99242225 Problem BMI 40.0-44.9, adult Z68.41 Active 841342149 Problem Observed sleep apnea G47.30 Active 99275114 Problem Irritable bowel syndrome with both constipation and diarrh ea K58.2 Active 38339161 Problem Unspecified mood [affective] disorder F39 Active 19001299 Problem 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 Active 849461281 Problem Attention deficit hyperactiv ity disorder (ADHD), predominantly inattentive type F90.0 Active 11169833 Problem Depression, unspecified depression type F32.9 Active 54941058 Problem Mood disorder F39 Active 759102 05 Problem Mild intellectual disability F70 A ctive [id number] ALLERGIES No Information ENCOUNTERS Encounter Location Date Diagnosis [facility] [address] [facility] [place] [id number] [address] [place] [phone] Sep, [facility] [address] [facility] [place] [id number] [address] [place] [address] Aug, [facility] [address] [facility] [place] [id number] [address] [place] [address] Aug, Mild intellectual disability F70 ; Depression, unspecified depression type F32.9 and BMI 45.0-49.9, adult Z68.42 [place] [address] [address] 18 Aug, 2018 SOB (shortness of breath) R0 6.02 [place] [address] [address] Aug, SOB (shortness of breath) R0 6.02 [place] [address] [place] [id number] [place] [phone] 12 Aug, 2018 SOB (shortness of breath) R0 6.02 [place] [address] [address] Aug, Elevated alkaline phosphatas e level R74.8 [place] [address] [address] Aug, Elevated alkaline phosphatas e level R74.8 [place] [address] [place] [id number] [address] [place] [address] Aug, [place] [address] [address] Aug, SOB (shortness of breath) R0 6.02 ; Seizures R56.9 ; Rash R21 and BMI 45.0-49.9, adult Z68.42 [place] [address] [address] [place] [id number] [address] [place] [address] 07 Aug, 2018 SOB (shortness of breath) R0 6.02 ; Seizures R56.9 ; Rash R21 and BMI 45.0-49.9, adult Z68.42 [place] [address] [place] [id number] [address] [place] [address] Jul, [place] [address] [place] [id number] [address] [place] [address] Jul, Contusion of left middle fin bruce without damage to nail, initial encounter S60.032A ; Observed sleep apnea G47.30 ; Mild intellectual disability F70 and Moderate persistent asthma without complication J45.40 [facility] [address] [address] 14 Jul, 2018 [facility] [address] [place] [id number] [place] [address] Jul, [facility] [address] [address] Jul, [place] [address] [address] Jun, [place] [address] [address] Jun, [place] [address] [address] Jun, [place] [address] [address] Jun, BMI 45.0-49.9, adult Z68.42 ; Nail hypertrophy L60.2 and Self-care deficit for hygiene R46.0 [place] [address] [address] Jun, [place] [address] [address] Jun, Encounter for immunization Z 23 [place] [address] [address] May, Sebaceous cyst L72.3 and Obs erved sleep apnea G47.30 [place] [address] [address] 10 May, 2018 [place] [address] [place] [id number] [place] [address] Apr, Environmental allergies Z91. 09 [place] [address] [address] Apr, [facility] [address] [id number] [address] [place] [address] Apr, Nail hypertrophy L60.2 and S elf-care deficit for grooming and hygiene Z74.1 [facility] [address] [id number] [address] [place] [address] Apr, Environmental allergies Z91. 09 [facility] [address] [id number] [address] [place] [address] Apr, [facility] [address] [id number] [address] [place] [address] Apr, [facility] [address] [id number] [address] [place] [address] Apr, [facility] [address] [facility] [place] [id number] [address] [place] [address] Apr, Environmental allergies Z91. 09 [facility] [address] [id number] [address] [place] [address] Apr, [facility] [address] [id number] [address] [place] [address] Apr, Anxiety F41.9 [facility] [address] [facility] [place] [id number] [address] [place] [address] Mar, Nail hypertrophy L60.2 and S elf-care deficit for hygiene R46.0 [facility] [address] [id number] [address] [place] [address] Mar, [facility] [address] [facility] [place] [id number] [address] [place] [address] Mar, [facility] [address] [facility] [place] [id number] [address] [place] [address] Mar, Anxiety F41.9 ; Mood disorde r F39 and Dysfunction of both eustachian tubes H69.83 [facility] [address] [facility] [place] [id number] [address] [place] [address] Mar, Seizures R56.9 [facility] [address] [id number] [address] [place] [address] Mar, Folliculitis L73.9 [facility] [address] [id number] [address] [place] [address] Mar, Mild intellectual disability F70 ; Depression, unspecified depression type F32.9 and Anxiety F41.9 [facility] [address] [id number] [address] [place] [address] Mar, Seizures R56.9 and Folliculi tis L73.9 [facility] [address] [id number] [address] [place] [address] Feb, [facility] [address] [id number] [address] [place] [address] Feb, Postconcussion syndrome F07. 81 and Folliculitis L73.9 [facility] [address] [id number] [address] [place] [address] Feb, Postconcussion syndrome F07. 81 [facility] [address] [id number] [address] [place] [address] Feb, [facility] [address] [id number] [address] [place] [address] [phone] Feb, [facility] [address] [id number] [address] [place] [address] [phone] Feb, Dental caries extending into dentin K02.62 [facility] [address] [id number] [address] [place] [address] January, [facility] [address] [id number] [address] [place] [address] January, [facility] [address] [id number] [address] [place] [address] January, Onychomycosis B35.1 [facility] [address] [id number] [address] [place] [phone] January, Dental caries extending into dentin K02.62 [facility] [address] [facility] [place] [id number] [address] [place] [address] Dec, [facility] [address] [facility] [place] [id number] [address] [place] [address] Dec, [facility] [address] [place] [id number] [place] [phone] Dec, [facility] [address] [place] [id number] [place] [address] Dec, Mild intellectual disability F70 ; Depression, unspecified depression type F32.9 ; Anxiety F41.9 and BMI 45.0-49.9, adult Z68.42 [facility] [address] [place] [id number] [address] [place] [address] Dec, Folliculitis L73.9 [facility] [address] [address] Dec, Mild intellectual disability F70 ; Unsteady gait R26.81 and Generalized weakness R53.1 [facility] [address] [place] [id number] [address] [place] [address] [phone] Nov, [facility] [address] [place] [id number] [address] [place] [address] Nov, [facility] [address] [place] [id number] [address] [place] [address] Nov, Folliculitis L73.9 ; Tinea c orporis B35.4 and Onychomycosis B35.1 [facility] [address] [facility] [id number] [address] [place] [address] [phone] Oct, [facility] [address] [facility] [place] [id number] [place] [address] Oct, Mood disorder F39 [facility] [address] [place] [id number] [place] [address] Oct, [facility] [address] [place] [id number] [address] [place] [address] Oct, Left hip pain M25.552 and Mu scle spasm M62.838 [facility] [address] [id number] [address] [place] [address] [phone] Oct, [facility] [address] [place] [id number] [address] [place] [address] Oct, Other specified mental disor ders 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 ; Anxiety F41.9 ; Onychomycosis B35.1 ; BMI 40.0-44.9, adult Z68.41 and Alkaline phosphatase elevation R74.8 [facility] [address] [place] [id number] [address] [place] [address] Sep, Mild intellectual disability F70 [facility] [address] [address] Sep, [facility] [address] [place] [id number] [address] [place] [address] Sep, Alkaline phosphatase elevati on R74.8 [place] [address] [address] Sep, Alkaline phosphatase elevati on R74.8 [facility] [address] [place] [id number] [address] [place] [address] Sep, Mood disorder F39 ; Attentio n deficit hyperactivity disorder (ADHD), predominantly inattentive type F90.0 ; Irritable bowel syndrome with both constipation and diarrhea K58.2 and Seizures R56.9 [facility] [address] [place] [id number] [address] [place] [address] Sep, Mild intellectual disability F70 ; Depression, unspecified depression type F32.9 ; Anxiety F41.9 and BMI 40.0-44.9, adult Z68.41 [facility] [address] [address] Sep, [facility] [address] [id number] [address] [place] [address] Sep, [facility] [address] [id number] [address] [place] [phone] Sep, [facility] [address] [id number] [address] [place] [address] Sep, [facility] [address] [id number] [address] [place] [address] Sep, [facility] [address] [id number] [address] [place] [address] [phone] Aug, Encounter for dental examina tion and cleaning without abnormal findings Z01.20 [facility] [address] [id number] [address] [place] [address] [id number] Aug, Dental examination Z01.20 [place] [address] [facility] [place] [place] [id number] [address] [place] [address] Aug, [facility] [address] [id number] [address] [place] [phone] Aug, Depression, unspecified depr ession type F32.9 ; Mild intellectual disability F70 and Anxiety F41.9 [facility] [address] [id number] [address] [place] [address] Aug, Mood disorder F39 ; Attentio n deficit hyperactivity disorder (ADHD), predominantly inattentive type F90.0 ; Irritable bowel syndrome with both constipation and diarrhea K58.2 and Seizures R56.9 [facility] [address] [id number] [address] [place] [phone] 05 Aug, 2017 Depression, unspecified depr ession type F32.9 ; Mild intellectual disability F70 and Anxiety F41.9 [facility] [address] [id number] [address] [place] [address] Aug, [facility] [address] [id number] [address] [place] [address] [phone] Jul, Dental examination Z01.20 an d Dental caries K02.9 [facility] [address] [id number] [address] [place] [address] Jun, Unspecified mood [affective] disorder F39 and 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 [facility] [address] [id number] [address] [place] [address] [phone] May, Encounter for dental examina tion and cleaning without abnormal findings Z01.20 [facility] [address] [id number] [address] [place] [address] [phone] Mar, Dental examination Z01.20 [facility] [address] [id number] [address] [place] [address] [id number] Sep, Dental examination Z01.20 [facility] [address] [id number] [address] [place] [address] [id number] January, Dental examination Z01.20 [facility] [address] [id number] [address] [place] [address] [id number] Dec, Encounter for dental examina tion Z01.20 [facility] [address] [id number] [address] [place] [address] [phone] Dec, Dental examination Z01.20 [facility] [address] [id number] [address] [place] [address] [id number] Nov, Dental examination Z01.20 [facility] [address] [id number] [address] [place] [address] [id number] Jul, Encounter for dental examina tion Z01.20 and Dental examination Z01.20 [facility] [address] [id number] [address] [place] [address] [id number] Apr, Dental examination V72.2 [facility] [address] [id number] [address] [place] [address] [id number] Mar, Dental examination V72.2 [facility] [address] [id number] [address] [place] [address] January, [facility] [address] [facility] [id number] [address] [place] [phone] January, [facility] [address] [facility] [place] [id number] [address] [place] [phone] January, [facility] [address] [facility] [place] [id number] [address] [place] [address] January, [facility] [address] [facility] [id number] [address] [place] [phone] Jul, IMMUNIZATIONS No Known Immunizations SOCIAL HISTORY Never Assessed REASON FOR VISIT Requests return call PLAN OF CARE VITAL SIGNS MEDICATIONS Medication Instructions Dosage Frequency Start Date End Date Duration S tatus Flovent HFA 110 MCG/ACT Inhalation Twice a day 1 puff 12h Aug, 30 days Active RESULTS No Results PROCEDURES [...] in 2005 2005 and before Hospitalization History [facility] 05/2018
--- OUTSIDE RECORDS SUMMARY | 2020-03-14 17:19 | XMS REPORT ---
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 Active 18877333 Problem Contusion of left middle fin bruce without damage to nail, initial encounter S60.032A Active 14577716 Problem Moderate persistent asthma without complication J4 5.40 Active 187568430 Problem Environmental allergies Z91.09 Active 921854965 Problem Postconcussion syndrome F07.81 Active 62789048 Problem BMI 40.0-44.9, adult Z68.41 Active 909003781 Problem Observed sleep apnea G47.30 Active 24759377 Problem Irritable bowel syndrome with both constipation and diarrh ea K58.2 Active 72265060 Problem Unspecified mood [affective] disorder F39 Active 21147296 Problem 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 Active 434827563 Problem Attention deficit hyperactiv ity disorder (ADHD), predominantly inattentive type F90.0 Active 60020891 Problem Depression, unspecified depression type F32.9 Active 38516173 Problem Mood disorder F39 Active 637961 05 Problem Mild intellectual disability F70 A ctive [id number] ALLERGIES No Information ENCOUNTERS Encounter Location Date Diagnosis [facility] [address] [facility] [id number] [address] [place] [phone] Sep, [facility] [address] [facility] [id number] [address] [place] [phone] Aug, [facility] [address] [address] 18 Aug, 2018 Mild intellectual disability F70 ; Depression, unspecified depression type F32.9 and BMI 45.0-49.9, adult Z68.42 [place] [address] [address] 18 Aug, 2018 SOB (shortness of breath) R0 6.02 [place] [address] [address] 13 Aug, 2018 SOB (shortness of breath) R0 6.02 [place] [address] [place] [id number] [place] [phone] 12 Aug, 2018 SOB (shortness of breath) R0 6.02 [place] [address] [place] [id number] [place] [phone] Aug, Elevated alkaline phosphatas e level R74.8 [place] [address] [address] Aug, Elevated alkaline phosphatas e level R74.8 [place] [address] [address] Aug, [place] [address] [address] Aug, SOB (shortness of breath) R0 6.02 ; Seizures R56.9 ; Rash R21 and BMI 45.0-49.9, adult Z68.42 [place] [address] [address] 07 Aug, 2018 SOB (shortness of breath) R0 6.02 ; Seizures R56.9 ; Rash R21 and BMI 45.0-49.9, adult Z68.42 [place] [address] [place] [id number] [place] [id number] Jul, [place] [address] [place] [id number] [place] [phone] Jul, Contusion of left middle fin bruce without damage to nail, initial encounter S60.032A ; Observed sleep apnea G47.30 ; Mild intellectual disability F70 and Moderate persistent asthma without complication J45.40 [facility] [address] [address] 14 Jul, 2018 [facility] [address] [address] Jul, [facility] [address] [address] Jul, [facility] [address] [address] Jun, [place] [address] [address] Jun, [place] [address] [address] Jun, [facility] [address] [address] Jun, BMI 45.0-49.9, adult Z68.42 ; Nail hypertrophy L60.2 and Self-care deficit for hygiene R46.0 [place] [address] [address] Jun, [place] [address] [address] Jun, Encounter for immunization Z 23 [facility] [address] [address] 28 May, 2018 Sebaceous cyst L72.3 and Obs erved sleep apnea G47.30 [facility] [address] [address] 10 May, 2018 [facility] [address] [address] Apr, Environmental allergies Z91. 09 [facility] [address] [place] [address] Apr, [facility] [address] [id number] [address] [place] [address] Apr, Nail hypertrophy L60.2 and S elf-care deficit for grooming and hygiene Z74.1 [facility] [address] [facility] [id number] [address] [place] [phone] Apr, Environmental allergies Z91. 09 [facility] [address] [id number] [address] [place] [phone] Apr, [facility] [address] [facility] [id number] [address] [place] [phone] Apr, [facility] [address] [facility] [id number] [address] [place] [phone] Apr, [facility] [address] [facility] [id number] [address] [place] [phone] Apr, Environmental allergies Z91. 09 [facility] [address] [facility] [id number] [address] [place] [phone] Apr, [facility] [address] [facility] [id number] [address] [place] [phone] Apr, Anxiety F41.9 [facility] [address] [facility] [id number] [place] [phone] Mar, Nail hypertrophy L60.2 and S elf-care deficit for hygiene R46.0 [facility] [address] [facility] [id number] [address] [place] [phone] Mar, [facility] [address] [facility] [id number] [address] [place] [phone] Mar, [facility] [address] [place] [id number] [address] [place] [phone] Mar, Anxiety F41.9 ; Mood disorde r F39 and Dysfunction of both eustachian tubes H69.83 [facility] [address] [id number] [address] [place] [address] Mar, Seizures R56.9 [facility] [address] [id number] [address] [place] [phone] Mar, Folliculitis L73.9 [facility] [address] [id number] [address] [place] [phone] Mar, Mild intellectual disability F70 ; Depression, unspecified depression type F32.9 and Anxiety F41.9 [facility] [address] [id number] [address] [place] [phone] Mar, Seizures R56.9 and Folliculi tis L73.9 [facility] [address] [id number] [address] [place] [phone] Feb, [facility] [address] [id number] [address] [place] [phone] Feb, Postconcussion syndrome F07. 81 and Folliculitis L73.9 [facility] [address] [id number] [address] [place] [phone] Feb, Postconcussion syndrome F07. 81 [facility] [address] [id number] [address] [place] [phone] Feb, [facility] [address] [id number] [address] [place] [address] [id number] Feb, [facility] [address] [id number] [address] [place] [address] [id number] Feb, Dental caries extending into dentin K02.62 [facility] [address] [id number] [address] [place] [phone] January, [facility] [address] [id number] [address] [place] [phone] January, [facility] [address] [id number] [address] [place] [phone] January, Onychomycosis B35.1 [facility] [address] [facility] [id number] [address] [place] [address] [id number] January, Dental caries extending into dentin K02.62 [facility] [address] [facility] [id number] [address] [place] [phone] Dec, [facility] [address] [facility] [id number] [address] [place] [phone] Dec, [facility] [address] [place] [id number] [place] [phone] Dec, [facility] [address] [facility] [id number] [place] [phone] Dec, Mild intellectual disability F70 ; Depression, unspecified depression type F32.9 ; Anxiety F41.9 and BMI 45.0-49.9, adult Z68.42 [facility] [address] [address] Dec, Folliculitis L73.9 [facility] [address] [address] Dec, Mild intellectual disability F70 ; Unsteady gait R26.81 and Generalized weakness R53.1 [facility] [address] [place] [id number] [address] [place] [address] [id number] Nov, [facility] [address] [place] [id number] [address] [place] [phone] Nov, [facility] [address] [facility] [id number] [address] [place] [phone] Nov, Folliculitis L73.9 ; Tinea c orporis B35.4 and Onychomycosis B35.1 [facility] [address] [id number] [address] [place] [address] [id number] Oct, [facility] [address] [facility] [id number] [address] [place] [phone] Oct, Mood disorder F39 [facility] [address] [facility] [id number] [address] [place] [phone] Oct, [facility] [address] [place] [id number] [address] [place] [phone] Oct, Left hip pain M25.552 and Mu scle spasm M62.838 [facility] [address] [id number] [address] [place] [address] [id number] Oct, [facility] [address] [place] [id number] [address] [place] [phone] Oct, Other specified mental disor ders 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 ; Anxiety F41.9 ; Onychomycosis B35.1 ; BMI 40.0-44.9, adult Z68.41 and Alkaline phosphatase elevation R74.8 [facility] [address] [place] [id number] [address] [place] [phone] Sep, Mild intellectual disability F70 [facility] [address] [phone] Sep, [facility] [address] [id number] Sep, Alkaline phosphatase elevati on R74.8 [place] [address] [address] Sep, Alkaline phosphatase elevati on R74.8 [place] [address] [place] [id number] [address] [place] [phone] Sep, Mood disorder F39 ; Attentio n deficit hyperactivity disorder (ADHD), predominantly inattentive type F90.0 ; Irritable bowel syndrome with both constipation and diarrhea K58.2 and Seizures R56.9 [place] [address] [address] Sep, Mild intellectual disability F70 ; Depression, unspecified depression type F32.9 ; Anxiety F41.9 and BMI 40.0-44.9, adult Z68.41 [facility] [address] [place] [id number] [address] [place] [phone] Sep, [facility] [address] [id number] [address] [place] [phone] Sep, [facility] [address] [id number] [address] [place] [phone] Sep, [facility] [address] [id number] [address] [place] [phone] Sep, [facility] [address] [id number] [address] [place] [phone] Sep, [facility] [address] [id number] [address] [place] [address] [id number] Aug, Encounter for dental examina tion and cleaning without abnormal findings Z01.20 [facility] [address] [id number] [address] [place] [address] [id number] Aug, Dental examination Z01.20 [facility] [address] [id number] [address] [place] [id number] 14 Aug, 2017 [facility] [address] [id number] [address] [place] [phone] Aug, Depression, unspecified depr ession type F32.9 ; Mild intellectual disability F70 and Anxiety F41.9 [facility] [address] [facility] [id number] [address] [place] [phone] Aug, Mood disorder F39 ; Attentio n deficit hyperactivity disorder (ADHD), predominantly inattentive type F90.0 ; Irritable bowel syndrome with both constipation and diarrhea K58.2 and Seizures R56.9 [facility] [address] [id number] [address] [place] [phone] Aug, Depression, unspecified depr ession type F32.9 ; Mild intellectual disability F70 and Anxiety F41.9 [facility] [address] [id number] [address] [place] [phone] Aug, [facility] [address] [id number] [address] [place] [address] [id number] Jul, Dental examination Z01.20 an d Dental caries K02.9 [facility] [address] [id number] [address] [place] [phone] Jun, Unspecified mood [affective] disorder F39 and 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 [facility] [address] [id number] [address] [place] [address] [id number] May, Encounter for dental examina tion and cleaning without abnormal findings Z01.20 [facility] [address] [id number] [address] [place] [address] [id number] Mar, Dental examination Z01.20 [facility] [address] [id number] [address] [place] [address] [id number] Sep, Dental examination Z01.20 [facility] [address] [id number] [address] [place] [address] [id number] January, Dental examination Z01.20 [facility] [address] [id number] [address] [place] [address] [id number] Dec, Encounter for dental examina tion Z01.20 [facility] [address] [id number] [address] [place] [address] [id number] Dec, Dental examination Z01.20 [facility] [address] [id number] [address] [place] [address] [id number] Nov, Dental examination Z01.20 [facility] [address] [id number] [address] [place] [address] [id number] Jul, Encounter for dental examina tion Z01.20 and Dental examination Z01.20 [facility] [address] [id number] [address] [place] [address] [id number] Apr, Dental examination V72.2 [facility] [address] [id number] [address] [place] [address] [id number] Mar, Dental examination V72.2 [facility] [address] [id number] [address] [place] [phone] January, [facility] [address] [facility] [id number] [address] [place] [phone] January, [facility] [address] [facility] [id number] [address] [place] [phone] January, [facility] [address] [facility] [id number] [address] [place] [phone] January, [facility] [address] [facility] [id number] [address] [place] [phone] Jul, IMMUNIZATIONS No Known Immunizations SOCIAL HISTORY Never Assessed REASON FOR VISIT f/liu khanna ma PLAN OF CARE Activity Details Follow Up 1 Week Reason: VITAL SIGNS Height 59 in 2018-09-12 Weight 227.6 lbs 2018-09-12 Heart Rate 109 bpm 2018-09-12 Respiratory Rate 20 2018-09-12 BMI 45.96 kg/m2 2018-09-12 MEDICATIONS Medication Instructions Dosage Frequency Start Date End Date Duration S tatus Calcium 600-400 MG-UNIT Orally Once a day 24h Active Protonix 40 mg Orally Once a day 1 tablet 24h 30 Active HydrOXYzine Pamoate 25 MG Orally Once a day 1 capsule as needed 24h Apr, Active Ibuprofen 800 MG Orally Three times a day 1 tablet with food or milk as needed 8h Oct, Active Nystatin 132298 unit/gm Externally Twice a day 1 application to affected area 12h Jun, Active Meclizine HCl 25 MG Orally 4 times a day 1 tablet 6h 30 days Active Cetirizine HCl 10 mg Orally Once a day 1 tablet 24h Mar, 201 8 9 Sep, 2018 30 day(s) Active Strattera 100MG Orally Once a day 1 capsule 24h Active Flonase 50 MCG/ACT Nasally Once a day 1 spray in each nostril 24h Mar, Active Aspirin 81 MG 1 tablet Active One-A-Day Bone Strength Active Phenytoin 100 mg 3 tablets 12h 30 Activ e Simvastatin 20 mg Orally Once a day 1 tablet 24h 30 Active Patanol 0.1 % Ophthalmic Twice a day 1 drop into each eye 12h Apr, 30 days Active Elmiron 100 mg Orally Three times a day 1 capsule on an empty stomach 8h Active VESIcare 5 mg Orally Once a day 1 tablet 24h Active Amitriptyline HCl 50 mg Orally at bedtime 1 tablet Active Montelukast Sodium 10MG TAKE ONE TABLET BY MOUTH ONCE DAILY 30 Active Dicyclomine HCl 20MG TAKE TWO TABLETS BY MOUTH 4 TIMES DAILY Active Estradiol 0.5 MG Orally Once a day 1 tablet 24h 30 Active Ventolin HFA 108 (90 Base) MCG/ACT Inhalation every 6 hrs 2 puffs a s needed 6h 25 Active Topiramate 100 mg Orally Twice a day 1 tablet 12h Active Diflucan 100 MG Orally Once a day 1 tablet 24h 07 Aug, 2018 10 day(s) Active Verapamil HCl ER 120 MG Orally Once a day 1 tablet 24h 30 Active Budesonide - Inhalation 2 times a day 2 puffs 12h 12 Aug, 2018 30 days Active Nebulizer - as directed Jul, Act cindi Lamotrigine 100 MG Orally Twice a day 1 tablet 12h Active RESULTS No Results PROCEDURES Procedure Date Ordered Result Body Site [facility] VISIT ESTABLISHED PATIENT Sep 12, 2018 INSTRUCTIONS MEDICATIONS ADMINISTERED No Known Medications [...] in 2005 2005 and before Hospitalization History [facility] 05/2018
--- OUTSIDE RECORDS SUMMARY | 2020-03-14 17:19 | XMS REPORT ---
Author Author Lata SAMUEL Organization 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 Active 91546040 Problem Contusion of left middle fin bruce without damage to nail, initial encounter S60.032A Active 71186031 Problem Moderate persistent asthma without complication J4 5.40 Active 786194965 Problem Environmental allergies Z91.09 Active 807415436 Problem Postconcussion syndrome F07.81 Active 89765620 Problem BMI 40.0-44.9, adult Z68.41 Active 490067457 Problem Observed sleep apnea G47.30 Active 60438957 Problem Irritable bowel syndrome with both constipation and diarrh ea K58.2 Active 79661423 Problem Unspecified mood [affective] disorder F39 Active 13783871 Problem 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 [address] [facility] [id number] [address] [place] [phone] Sep, [facility] [address] [facility] [id number] [address] [place] [phone] Aug, [facility] [address] [facility] [id number] [address] [place] [phone] Aug, SOB (shortness of breath) R0 6.02 [facility] [address] [facility] [id number] [address] [place] [phone] Aug, Elevated alkaline phosphatas e level R74.8 [facility] [address] [facility] [id number] [address] [place] [phone] Aug, Elevated alkaline phosphatas e level R74.8 [facility] [address] [place] [id number] [address] [place] [phone] Aug, [place] [address] [place] [id number] [address] [place] [phone] 10 Aug, 2018 SOB (shortness of breath) R0 6.02 ; Seizures R56.9 ; Rash R21 and BMI 45.0-49.9, adult Z68.42 [place] [address] [place] [id number] [place] [phone] 07 Aug, 2018 SOB (shortness of breath) R0 6.02 ; Seizures R56.9 ; Rash R21 and BMI 45.0-49.9, adult Z68.42 [place] [address] [place] [id number] [place] [phone] 19 Jul, 2018 [place] [address] [place] [id number] [address] [place] [phone] 16 Jul, 2018 Contusion of left middle fin bruce without damage to nail, initial encounter S60.032A ; Observed sleep apnea G47.30 ; Mild intellectual disability F70 and Moderate persistent asthma without complication J45.40 [place] [address] [place] [id number] [address] [place] [phone] 14 Jul, 2018 [place] [address] [place] [id number] [place] [phone] 09 Jul, 2018 [place] [address] [place] [id number] [address] [place] [phone] 06 Jul, 2018 [facility] [address] [place] [id number] [address] [place] [phone] Jun, [facility] [address] [facility] [id number] [address] [place] [phone] Jun, [facility] [address] [facility] [id number] [address] [place] [phone] Jun, [facility] [address] [facility] [id number] [address] [place] [phone] Jun, BMI 45.0-49.9, adult Z68.42 ; Nail hypertrophy L60.2 and Self-care deficit for hygiene R46.0 [facility] [address] [facility] [id number] [address] [place] [phone] Jun, [facility] [address] [facility] [id number] [place] [phone] Jun, Encounter for immunization Z 23 [facility] [address] [place] [id number] [address] [place] [phone] May, Sebaceous cyst L72.3 and Obs erved sleep apnea G47.30 [facility] [address] [facility] [id number] [address] [place] [phone] May, [facility] [address] [place] [id number] [address] [place] [phone] Apr, Environmental allergies Z91. 09 [facility] [address] [place] [id number] [address] [place] [phone] Apr, [facility] [address] [place] [id number] [address] [place] [phone] Apr, Nail hypertrophy L60.2 and S elf-care deficit for grooming and hygiene Z74.1 [facility] [address] [facility] [id number] [address] [place] [phone] Apr, Environmental allergies Z91. 09 [facility] [address] [place] [id number] [address] [place] [phone] Apr, [facility] [address] [place] [id number] [address] [place] [phone] Apr, [facility] [address] [facility] [id number] [address] [place] [phone] Apr, [facility] [address] [facility] [id number] [address] [place] [phone] Apr, Environmental allergies Z91. 09 [facility] [address] [facility] [id number] [address] [place] [phone] Apr, [facility] [address] [place] [id number] [place] [phone] Apr, Anxiety F41.9 [place] [address] [place] [id number] [place] [phone] Mar, Nail hypertrophy L60.2 and S elf-care deficit for hygiene R46.0 [place] [address] [phone] Mar, [place] [address] [place] [id number] [place] [phone] Mar, [place] [address] [phone] Mar, Anxiety F41.9 ; Mood disorde r F39 and Dysfunction of both eustachian tubes H69.83 [place] [address] [phone] Mar, Seizures R56.9 [place] [address] [place] [id number] [place] [phone] Mar, Folliculitis L73.9 [place] [address] [place] [id number] [place] [phone] Mar, Mild intellectual disability F70 ; Depression, unspecified depression type F32.9 and Anxiety F41.9 [place] [address] [place] [id number] [address] [place] [phone] Mar, Seizures R56.9 and Folliculi tis L73.9 [facility] [address] [id number] [address] [place] [phone] Feb, [facility] [address] [id number] [address] [place] [phone] Feb, Postconcussion syndrome F07. 81 and Folliculitis L73.9 [facility] [address] [id number] [address] [place] [phone] Feb, Postconcussion syndrome F07. 81 [facility] [address] [id number] [address] [place] [phone] Feb, [facility] [address] [id number] [address] [place] [address] [id number] Feb, [facility] [address] [id number] [address] [place] [address] [id number] Feb, Dental caries extending into dentin K02.62 [facility] [address] [id number] [address] [place] [phone] January, [facility] [address] [id number] [address] [place] [phone] January, [facility] [address] [id number] [address] [place] [phone] January, Onychomycosis B35.1 [facility] [address] [id number] [address] [place] [address] [id number] January, Dental caries extending into dentin K02.62 [facility] [address] [id number] [address] [place] [phone] Dec, [facility] [address] [id number] [address] [place] [phone] Dec, [facility] [address] [id number] [address] [place] [phone] Dec, [facility] [address] [id number] [address] [place] [phone] Dec, Mild intellectual disability F70 ; Depression, unspecified depression type F32.9 ; Anxiety F41.9 and BMI 45.0-49.9, adult Z68.42 [facility] [address] [place] [id number] [address] [place] [phone] Dec, Folliculitis L73.9 [facility] [address] [phone] Dec, Mild intellectual disability F70 ; Unsteady gait R26.81 and Generalized weakness R53.1 [facility] [address] [place] [id number] [place] [address] [id number] Nov, [facility] [address] [phone] Nov, [facility] [address] [phone] Nov, Folliculitis L73.9 ; Tinea c orporis B35.4 and Onychomycosis B35.1 [facility] [address] [place] [id number] [address] [place] [address] [id number] Oct, [facility] [address] [phone] Oct, Mood disorder F39 [facility] [address] [id number] Oct, [facility] [address] [place] [id number] [address] [place] [phone] Oct, Left hip pain M25.552 and Mu scle spasm M62.838 [facility] [address] [facility] [id number] [address] [place] [address] [id number] Oct, [facility] [address] [place] [id number] [address] [place] [phone] Oct, Other specified mental disor ders 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 ; Anxiety F41.9 ; Onychomycosis B35.1 ; BMI 40.0-44.9, adult Z68.41 and Alkaline phosphatase elevation R74.8 [facility] [address] [id number] [address] [place] [phone] Sep, Mild intellectual disability F70 [facility] [address] [id number] [address] [place] [phone] Sep, [facility] [address] [id number] [address] [place] [phone] Sep, Alkaline phosphatase elevati on R74.8 [facility] [address] [id number] [address] [place] [phone] Sep, Alkaline phosphatase elevati on R74.8 [facility] [address] [facility] [id number] [address] [place] [phone] Sep, Mood disorder F39 ; Attentio n deficit hyperactivity disorder (ADHD), predominantly inattentive type F90.0 ; Irritable bowel syndrome with both constipation and diarrhea K58.2 and Seizures R56.9 [facility] [address] [id number] [address] [place] [id number] Sep, Mild intellectual disability F70 ; Depression, unspecified depression type F32.9 ; Anxiety F41.9 and BMI 40.0-44.9, adult Z68.41 [facility] [address] [id number] [address] [place] [phone] Sep, [facility] [address] [id number] [address] [place] [phone] Sep, [facility] [address] [id number] [address] [place] [phone] Sep, [facility] [address] [facility] [id number] [address] [place] [phone] Sep, [facility] [address] [facility] [id number] [address] [place] [phone] Sep, [facility] [address] [id number] [address] [place] [address] [id number] Aug, Encounter for dental examina tion and cleaning without abnormal findings Z01.20 [facility] [address] [id number] [address] [place] [address] [id number] Aug, Dental examination Z01.20 [facility] [address] [place] [id number] [address] [place] [phone] Aug, [facility] [address] [place] [id number] [place] [id number] Aug, Depression, unspecified depr ession type F32.9 ; Mild intellectual disability F70 and Anxiety F41.9 [place] [address] [place] [phone] 08 Aug, 2017 Mood disorder F39 ; Attentio n deficit hyperactivity disorder (ADHD), predominantly inattentive type F90.0 ; Irritable bowel syndrome with both constipation and diarrhea K58.2 and Seizures R56.9 [facility] [address] [place] [id number] [address] [place] [phone] 05 Aug, 2017 Depression, unspecified depr ession type F32.9 ; Mild intellectual disability F70 and Anxiety F41.9 [place] [address] [place] [id number] [address] [place], [place] [phone] 04 Aug, 2017 [facility] [address] [facility] [id number] [address] [place] [address] [id number] Jul, Dental examination Z01.20 an d Dental caries K02.9 [facility] [address] [place] [id number] [address] [place] [phone] Jun, Unspecified mood [affective] disorder F39 and 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 [facility] [address] [id number] [address] [place] [address] [id number] 13 May, 2017 Encounter for dental examina tion and cleaning without abnormal findings Z01.20 [facility] [address] [id number] [address] [place] [address] [id number] Mar, Dental examination Z01.20 [facility] [address] [id number] [address] [place] [address] [id number] Sep, Dental examination Z01.20 [facility] [address] [id number] [address] [place] [address] [id number] January, Dental examination Z01.20 [facility] [address] [id number] [address] [place] [address] [id number] Dec, Encounter for dental examina tion Z01.20 [facility] [address] [id number] [address] [place] [address] [id number] Dec, Dental examination Z01.20 [facility] [address] [id number] [address] [place] [address] [id number] Nov, Dental examination Z01.20 [facility] [address] [id number] [address] [place] [address] [id number] Jul, Encounter for dental examina tion Z01.20 and Dental examination Z01.20 [facility] [address] [id number] [address] [place] [address] [id number] Apr, Dental examination V72.2 [facility] [address] [id number] [address] [place] [address] [id number] Mar, Dental examination V72.2 [facility] [address] [id number] [address] [place] [phone] January, [facility] [address] [id number] [address] [place] [phone] January, [facility] [address] [id number] [address] [place] [phone] January, [facility] [address] [id number] [address] [place] [phone] January, [facility] [address] [id number] [address] [place] [phone] Jul, IMMUNIZATIONS No Known Immunizations SOCIAL HISTORY Never Assessed REASON FOR VISIT med refill PLAN OF CARE VITAL SIGNS MEDICATIONS Medication Instructions Dosage Frequency Start Date End Date Duration S kayode Budesonide 90 MCG/ACT Inhalation 2 times a day 2 puffs 12h 12 Aug, 2018 30 days Active RESULTS No Results PROCEDURES [...] in 2005 2005 and before Hospitalization History [facility] 05/2018
--- OUTSIDE RECORDS SUMMARY | 2020-03-14 17:19 | XMS REPORT ---
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 Active 48308619 Problem Contusion of left middle fin bruce without damage to nail, initial encounter S60.032A Active 21969273 Problem Moderate persistent asthma without complication J4 5.40 Active 890544782 Problem Environmental allergies Z91.09 Active 094599197 Problem Postconcussion syndrome F07.81 Active 28914539 Problem BMI 40.0-44.9, adult Z68.41 Active 576056600 Problem Observed sleep apnea G47.30 Active 09708817 Problem Irritable bowel syndrome with both constipation and diarrh ea K58.2 Active 36010074 Problem Unspecified mood [affective] disorder F39 Active 83491500 Problem 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 Active 833856204 Problem Attention deficit hyperactiv ity disorder (ADHD), predominantly inattentive type F90.0 Active 97932567 Problem Depression, unspecified depression type F32.9 Active 34469812 Problem Mood disorder F39 Active 439833 05 Problem Mild intellectual disability F70 A ctive [id number] ALLERGIES No Information ENCOUNTERS Encounter Location Date Diagnosis [facility] [address] [facility] [place] [id number] [address] [place] [phone] Sep, [facility] [address] [facility] [place] [id number] [address] [place] [phone] Aug, [facility] [address] [facility] [place] [id number] [address] [place] [phone] Aug, Mild intellectual disability F70 ; Depression, unspecified depression type F32.9 and BMI 45.0-49.9, adult Z68.42 [place] [address] [id number] 18 Aug, 2018 SOB (shortness of breath) R0 6.02 [place] [address] [address] Aug, SOB (shortness of breath) R0 6.02 [place] [address] [place] [id number] [place] [phone] 12 Aug, 2018 SOB (shortness of breath) R0 6.02 [place] [address] [address] Aug, Elevated alkaline phosphatas e level R74.8 [place] [address] [address] Aug, Elevated alkaline phosphatas e level R74.8 [place] [address] [place] [id number] [address] [place] [phone] Aug, [place] [address] [address] Aug, SOB (shortness of breath) R0 6.02 ; Seizures R56.9 ; Rash R21 and BMI 45.0-49.9, adult Z68.42 [place] [address] [place] [id number] [address] [place] [id number] 07 Aug, 2018 SOB (shortness of breath) R0 6.02 ; Seizures R56.9 ; Rash R21 and BMI 45.0-49.9, adult Z68.42 [place] [address] [place] [id number] [address] [place] [phone] Jul, [place] [address] [place] [id number] [address] [place] [id number] Jul, Contusion of left middle fin bruce without damage to nail, initial encounter S60.032A ; Observed sleep apnea G47.30 ; Mild intellectual disability F70 and Moderate persistent asthma without complication J45.40 [facility] [address] [id number] 14 Jul, 2018 [facility] [address] [place] [id number] [place] [phone] Jul, [facility] [address] [address] Jul, [place] [address] [address] Jun, [place] [address] [address] Jun, [place] [address] [address] Jun, [place] [address] [address] Jun, BMI 45.0-49.9, adult Z68.42 ; Nail hypertrophy L60.2 and Self-care deficit for hygiene R46.0 [place] [address] [address] Jun, [place] [address] [address] Jun, Encounter for immunization Z 23 [place] [address] [address] May, Sebaceous cyst L72.3 and Obs erved sleep apnea G47.30 [place] [address] [address] 10 May, 2018 [place] [address] [place] [id number] [place] [phone] Apr, Environmental allergies Z91. 09 [place] [address] [address] Apr, [facility] [address] [id number] [address] [place] [phone] Apr, Nail hypertrophy L60.2 and S elf-care deficit for grooming and hygiene Z74.1 [facility] [address] [id number] [address] [place] [phone] Apr, Environmental allergies Z91. 09 [facility] [address] [id number] [address] [place] [phone] Apr, [facility] [address] [id number] [address] [place] [phone] Apr, [facility] [address] [id number] [address] [place] [phone] Apr, [facility] [address] [facility] [place] [id number] [address] [place] [id number] Apr, Environmental allergies Z91. 09 [facility] [address] [id number] [address] [place] [id number] Apr, [facility] [address] [id number] [address] [place] [phone] Apr, Anxiety F41.9 [facility] [address] [facility] [place] [id number] [address] [place] [id number] Mar, Nail hypertrophy L60.2 and S elf-care deficit for hygiene R46.0 [facility] [address] [id number] [address] [place] [id number] Mar, [facility] [address] [facility] [place] [id number] [address] [place] [id number] Mar, [facility] [address] [facility] [place] [id number] [address] [place] [id number] Mar, Anxiety F41.9 ; Mood disorde r F39 and Dysfunction of both eustachian tubes H69.83 [facility] [address] [facility] [place] [id number] [address] [place] [phone] Mar, Seizures R56.9 [facility] [address] [id number] [address] [place] [id number] Mar, Folliculitis L73.9 [facility] [address] [id number] [address] [place] [phone] Mar, Mild intellectual disability F70 ; Depression, unspecified depression type F32.9 and Anxiety F41.9 [facility] [address] [id number] [address] [place] [phone] Mar, Seizures R56.9 and Folliculi tis L73.9 [facility] [address] [id number] [address] [place] [phone] Feb, [facility] [address] [id number] [address] [place] [phone] Feb, Postconcussion syndrome F07. 81 and Folliculitis L73.9 [facility] [address] [id number] [address] [place] [id number] Feb, Postconcussion syndrome F07. 81 [facility] [address] [id number] [address] [place] [phone] Feb, [facility] [address] [id number] [address] [place] [address] [phone] Feb, [facility] [address] [id number] [address] [place] [address] [phone] Feb, Dental caries extending into dentin K02.62 [facility] [address] [id number] [address] [place] [id number] January, [facility] [address] [id number] [address] [place] [phone] January, [facility] [address] [id number] [address] [place] [id number] January, Onychomycosis B35.1 [facility] [address] [id number] [address] [place] [address] [phone] January, Dental caries extending into dentin K02.62 [facility] [address] [facility] [place] [id number] [address] [place] [id number] Dec, [facility] [address] [facility] [place] [id number] [address] [place] [phone] Dec, [facility] [address] [place] [id number] [place] [phone] Dec, [facility] [address] [place] [id number] [place] [id number] Dec, Mild intellectual disability F70 ; Depression, unspecified depression type F32.9 ; Anxiety F41.9 and BMI 45.0-49.9, adult Z68.42 [facility] [address] [place] [id number] [address] [place] [id number] Dec, Folliculitis L73.9 [facility] [address] [address] Dec, Mild intellectual disability F70 ; Unsteady gait R26.81 and Generalized weakness R53.1 [facility] [address] [place] [id number] [address] [place] [address] [id number] Nov, [facility] [address] [place] [id number] [address] [place] [phone] Nov, [facility] [address] [place] [id number] [address] [place] [phone] Nov, Folliculitis L73.9 ; Tinea c orporis B35.4 and Onychomycosis B35.1 [facility] [address] [facility] [id number] [address] [place] [address] [phone] Oct, [facility] [address] [facility] [place] [id number] [place] [phone] Oct, Mood disorder F39 [facility] [address] [place] [id number] [place] [phone] Oct, [facility] [address] [place] [id number] [address] [place] [id number] Oct, Left hip pain M25.552 and Mu scle spasm M62.838 [facility] [address] [id number] [address] [place] [address] [id number] Oct, [facility] [address] [place] [id number] [address] [place] [phone] Oct, Other specified mental disor ders 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 ; Anxiety F41.9 ; Onychomycosis B35.1 ; BMI 40.0-44.9, adult Z68.41 and Alkaline phosphatase elevation R74.8 [facility] [address] [place] [id number] [address] [place] [phone] Sep, Mild intellectual disability F70 [facility] [address] [id number] Sep, [facility] [address] [place] [id number] [address] [place] [phone] Sep, Alkaline phosphatase elevati on R74.8 [place] [address] [id number] Sep, Alkaline phosphatase elevati on R74.8 [facility] [address] [place] [id number] [address] [place] [phone] Sep, Mood disorder F39 ; Attentio n deficit hyperactivity disorder (ADHD), predominantly inattentive type F90.0 ; Irritable bowel syndrome with both constipation and diarrhea K58.2 and Seizures R56.9 [facility] [address] [place] [id number] [address] [place] [phone] Sep, Mild intellectual disability F70 ; Depression, unspecified depression type F32.9 ; Anxiety F41.9 and BMI 40.0-44.9, adult Z68.41 [facility] [address] [phone] Sep, [facility] [address] [id number] [address] [place] [phone] Sep, [facility] [address] [id number] [address] [place] [phone] Sep, [facility] [address] [id number] [address] [place] [phone] Sep, [facility] [address] [id number] [address] [place] [phone] Sep, [facility] [address] [id number] [address] [place] [address] [phone] Aug, Encounter for dental examina tion and cleaning without abnormal findings Z01.20 [facility] [address] [id number] [address] [place] [address] [phone] Aug, Dental examination Z01.20 [place] [id number] [facility] [place] [id number] [address] [place] [phone] Aug, [facility] [address] [id number] [address] [place] [phone] Aug, Depression, unspecified depr ession type F32.9 ; Mild intellectual disability F70 and Anxiety F41.9 [facility] [address] [id number] [address] [place] [phone] Aug, Mood disorder F39 ; Attentio n deficit hyperactivity disorder (ADHD), predominantly inattentive type F90.0 ; Irritable bowel syndrome with both constipation and diarrhea K58.2 and Seizures R56.9 [facility] [address] [id number] [address] [place] [phone] 05 Aug, 2017 Depression, unspecified depr ession type F32.9 ; Mild intellectual disability F70 and Anxiety F41.9 [facility] [address] [id number] [address] [place] [id number] Aug, [facility] [address] [id number] [address] [place] [address] [id number] Jul, Dental examination Z01.20 an d Dental caries K02.9 [facility] [address] [id number] [address] [place] [phone] Jun, Unspecified mood [affective] disorder F39 and 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 [facility] [address] [id number] [address] [place] [address] [phone] May, Encounter for dental examina tion and cleaning without abnormal findings Z01.20 [facility] [address] [id number] [address] [place] [address] [id number] Mar, Dental examination Z01.20 [facility] [address] [id number] [address] [place] [address] [id number] Sep, Dental examination Z01.20 [facility] [address] [id number] [address] [place] [address] [id number] January, Dental examination Z01.20 [facility] [address] [id number] [address] [place] [address] [id number] Dec, Encounter for dental examina tion Z01.20 [facility] [address] [id number] [address] [place] [address] [id number] Dec, Dental examination Z01.20 [facility] [address] [id number] [address] [place] [address] [id number] Nov, Dental examination Z01.20 [facility] [address] [id number] [address] [place] [address] [id number] Jul, Encounter for dental examina tion Z01.20 and Dental examination Z01.20 [facility] [address] [id number] [address] [place] [address] [id number] Apr, Dental examination V72.2 [facility] [address] [id number] [address] [place] [address] [id number] Mar, Dental examination V72.2 [facility] [address] [id number] [address] [place] [phone] January, [facility] [address] [facility] [place] [id number] [address] [place] [phone] January, [facility] [address] [facility] [place] [id number] [address] [place] [phone] January, [facility] [address] [facility] [place] [id number] [address] [place] [phone] January, [facility] [address] [facility] [place] [id number] [address] [place] [id number] Jul, IMMUNIZATIONS No Known Immunizations SOCIAL HISTORY Never Assessed REASON FOR VISIT RX resend PLAN OF CARE VITAL SIGNS MEDICATIONS Medication Instructions Dosage Frequency Start Date End Date Duration S tatus Budesonide - Inhalation 2 times a day [...] in 2005 2005 and before Hospitalization History [facility] 05/2018
--- OUTSIDE RECORDS SUMMARY | 2020-03-14 17:19 | XMS REPORT ---
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 Active 960675798 Problem Unspecified mood [affective] disorder F39 Active 21822842 Problem Simple chronic bronchitis J41.0 Acti ve 06801420 Problem Hyperlipidemia, unspecified hyperlipidemia type E7 8.5 Active 91940521 Problem Unsteady gait R26.81 Active 393382 08 Problem 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 Active 10509352 Problem Environmental allergies Z91.09 Active 159193891 Problem Postconcussion syndrome F07.81 Active 08901381 Problem BMI 40.0-44.9, adult Z68.41 Active 805285351 Problem Observed sleep apnea G47.30 Active 36231115 Problem Contusion of left middle fin bruce without damage to nail, initial encounter S60.032A Active 57251041 Problem Moderate persistent asthma without complication J4 5.40 Active 129801058 Problem Irritable bowel syndrome with diarrhea K58.0 Active 636099000 Problem Peripheral vascular disease I73.9 Ac tive 503903845 Problem Major depressive disorder, single episode, mild F3 2.0 Active 30288160 Problem Seasonal allergic rhinitis due to other allergic trigger J30.89 Active 742173672 Problem Mild intellectual disability F70 A ctive 62668675 Problem Rhinosinusitis J32.9 Active 98915 4004 Problem Depression, unspecified depression type F32.9 Active 30554918 Problem Anxiety F41.9 Active 90042628 Problem Supraventricular tachycardia I47.1 A ctive 2958474 Problem Hallux valgus (acquired) M20.10 Activ e 00896576 Problem Atypical psychosis F29 Active 4 06992470 Problem Other chronic pain G89.29 Active 8 1304748 ALLERGIES No Information ENCOUNTERS Encounter Location Date Diagnosis [place] [address] [address] 13 Nov, 2019 [place] [address] [address] 12 Nov, 2019 [place] [address] [address] 14 Oct, 2019 [place] [address] [address] Sep, [place] [address] [address] Sep, [place] [address] [address] Sep, Mild intellectual disability F70 and Dep ression, unspecified depression type F32.9 [place] [address] [address] 16 Sep, 2019 Seasonal allergic rhinitis due to other allergic trigger J30.89 [place] [address] [address] 14 Sep, 2019 Seizures R56.9 [place] [address] [address] Aug, Chronic sinusitis J32.9 [place] [address] [address] Aug, [place] [address] [address] Aug, [place] [address] [address] Aug, [place] [address] [address] Aug, Rhinosinusitis J32.9 [facility] [address] [address] Aug, [facility] [address] [address] Jul, Encounter for immunization Z23 [facility] [address] [address] Jul, [facility] [address] [address] Jul, [facility] [address] [address] Jul, Laceration of scalp, subsequent encounte r S01.01XD [facility] [address] [address] Jul, [facility] [address] [address] Jul, [facility] [address] [address] Jul, [facility] [address] [address] Jul, Unsteady gait R26.81 [place] [address] [address] Jul, Bilateral otitis media with effusion H65 .93 [facility] [address] [address] Jul, Acute swimmer''s ear of right side H60.3 31 [facility] [address] [address] Jul, Acute swimmer''s ear of right side H60.3 31 [facility] [address] [address] Jun, [facility] [address] [address] Jun, Other chronic pain G89.29 and Pain in le ft foot M79.[address] [address] Jun, [place] [address] [place] [id number] Jun, [place] [address] [place] [id number] Jun, Bilious vomiting with nausea R11.14 ; Phelps llux valgus (acquired) M20.10 and Atypical psychosis F29 [address] [address] Jun, Nail hypertrophy L60.2 and Self-care def icit for grooming and hygiene Z74.[address] [address] May, [place] [address] [address] May, [address] [address] May, [address] [address] May, [address] [address] May, [place] [address] [address] May, [address] [address] May, Acute swimmer''s ear of right side H60.3 31 ; Abscess of thigh L02.419 and Diarrhea, unspecified type R19.[address] [address] May, Mild intellectual disability F70 and Dep ression, unspecified depression type F32.[address] [place] [address] Apr, [place] [address] [address] Apr, Acute cystitis without hematuria N30.00 ; Dysuria R30.0 and Allergic contact dermatitis due to plants, except food L23.7 [place] [address] [address] Apr, [place] [address] [address] Apr, [place] [address] [address] Apr, Bronchitis J40 ; Foreign body of right l ower leg, initial encounter S80.851A ; Peripheral vascular disease I73.9 ; Major depressive disorder, single episode, mild F32.0 ; Supraventricular tachycardia I47.1 and Morbid obesity E66.01 [place] [address] [address] Mar, Coughing R05 [place] [address] [address] Mar, [place] [address] [address] Mar, Tinea corporis B35.4 and Morbid obesity E66.01 [place] [address] [address] Feb, Mild intellectual disability F70 and Dep ression, unspecified depression type F32.9 [place] [address] [address] Feb, [place] [address] [address] Feb, [place] [address] [address] Feb, Irritable bowel syndrome with diarrhea K 58.0 [place] [address] [address] January, Coughing R05 [facility] [address] [address] January, Coughing R05 [facility] [address] [address] January, [facility] [address] [address] January, Coughing R05 and Dizziness R42 [facility] [address] [address] January, [facility] [address] [address] January, Bronchitis J40 [facility] [address] [address] January, [facility] [address] [address] January, Bronchitis J40 ; Nail hypertrophy L60.2 and Self-care deficit for grooming and hygiene Z74.1 [facility] [address] [address] January, [facility] [address] [address] January, Tachycardia R00.0 [facility] [address] [address] Dec, [facility] [address] [address] Dec, Anxiety F41.9 [facility] [address] [address] Dec, [facility] [address] [address] Dec, [facility] [address] [address] Dec, [facility] [address] [address] Dec, Anxiety F41.9 [facility] [address] [facility] [id number] [place] [address] Dec, [place] [address] [address] Dec, Irritable bowel syndrome with diarrhea K 58.0 [place] [address] [address] Nov, [facility] [address] [address] Nov, Viral gastroenteritis A08.4 [place] [address] [address] Nov, Mild intellectual disability F70 and Dep ression, unspecified depression type F32.9 [place] [address] [address] Nov, [facility] [address] [address] Oct, [facility] [address] [address] Oct, [place] [address] [address] Oct, [facility] [address] [address] Oct, [facility] [address] [address] Oct, [facility] [address] [address] Oct, [facility] [address] [address] Sep, [facility] [address] [address] Sep, SOB (shortness of breath) R06.02 and Sim ple chronic bronchitis J41.0 [place] [address] [address] Sep, Hyperlipidemia, unspecified hyperlipidem ia type E78.5 [place] [address] [address] Sep, [place] [address] [address] Sep, Hyperlipidemia, unspecified hyperlipidem ia type E78.5 [place] [address] [address] Sep, [place] [address] [address] Sep, Nail hypertrophy L60.2 and Self-care def icit for grooming and hygiene Z74.[address] [address] Sep, [place] [address] [address] Sep, [place] [address] [address] Aug, Elevated alkaline phosphatase level R74. [address] [address] Aug, Mild intellectual disability F70 and Dep ression, unspecified depression type F32.[address] [address] Aug, Mild intellectual disability F70 ; Depre ssion, unspecified depression type F32.9 and BMI 45.0-49.9, adult Z68.[address] [address] Aug, SOB (shortness of breath) R06.02 [place] [address] [address] Aug, SOB (shortness of breath) R06.02 [place] [address] [address] 12 Aug, 2018 SOB (shortness of breath) R06.02 [place] [address] [address] Aug, Elevated alkaline phosphatase level R74. 8 [place] [address] [address] Aug, Elevated alkaline phosphatase level R74. 8 [place] [address] [address] Aug, [place] [address] [address] 10 Aug, 2018 SOB (shortness of breath) R06.02 ; Seizu res R56.9 ; Rash R21 and BMI 45.0-49.9, adult Z68.42 [place] [address] [address] 07 Aug, 2018 SOB (shortness of breath) R06.02 ; Seizu res R56.9 ; Rash R21 and BMI 45.0-49.9, adult Z68.42 [place] [address] [address] 19 Jul, 2018 [place] [address] [address] 16 Jul, 2018 Contusion of left middle finger without damage to nail, initial encounter S60.032A ; Observed sleep apnea G47.30 ; Mild intellectual disability F70 and Moderate persistent asthma without complication J45.40 [place] [address] [address] 14 Jul, 2018 [place] [address] [address] 09 Jul, 2018 [place] [address] [address] 06 Jul, 2018 [place] [address] [address] Jun, [place] [address] [address] Jun, [facility] [address] [address] Jun, [facility] [address] [address] Jun, BMI 45.0-49.9, adult Z68.42 ; Nail hyper trophy L60.2 and Self-care deficit for hygiene R46.0 [place] [address] [address] Jun, [place] [address] [address] Jun, Encounter for immunization Z23 [place] [address] [address] May, Sebaceous cyst L72.3 ; Observed sleep ap guille G47.30 and BMI 45.0-49.9, adult Z68.42 [place] [address] [address] May, [place] [address] [address] Apr, Environmental allergies Z91.09 [place] [address] [address] Apr, [place] [address] [address] Apr, Nail hypertrophy L60.2 and Self-care def icit for grooming and hygiene Z74.1 [place] [address] [address] Apr, Environmental allergies Z91.09 [place] [address] [address] Apr, [place] [address] [address] Apr, [place] [address] [address] Apr, [facility] [address] [address] Apr, Environmental allergies Z91.09 [facility] [address] [address] Apr, [place] [address] [address] Apr, Anxiety F41.9 [place] [address] [address] Mar, Nail hypertrophy L60.2 and Self-care def icit for hygiene R46.0 [place] [address] [address] Mar, [place] [address] [address] Mar, [place] [address] [address] Mar, Anxiety F41.9 ; Mood disorder F39 and Dy sfunction of both eustachian tubes H69.83 [place] [address] [address] Mar, Seizures R56.9 [place] [address] [address] Mar, Folliculitis L73.9 [place] [address] [address] Mar, Mild intellectual disability F70 ; Depre ssion, unspecified depression type F32.9 and Anxiety F41.9 [place] [address] [address] Mar, Seizures R56.9 and Folliculitis L73.9 [place] [address] [address] Feb, [place] [address] [address] Feb, Postconcussion syndrome F07.81 and Folli culitis L73.9 [facility] [address] [place] [id number] Feb, Postconcussion syndrome F07.81 [facility] [address] [address] Feb, [facility] [address] [id number] Feb, [facility] [address] [id number] Feb, Dental caries extending into dentin K02. 62 [facility] [address] [address] January, [facility] [address] [address] January, [facility] [address] [address] January, Onychomycosis B35.1 [facility] [address] [id number] January, Dental caries extending into dentin K02. 62 [facility] [address] [address] Dec, [facility] [address] [address] Dec, [facility] [address] [address] Dec, [facility] [address] [address] Dec, Mild intellectual disability F70 ; Depre ssion, unspecified depression type F32.9 ; Anxiety F41.9 and BMI 45.0-49.9, adult Z68.42 [facility] [address] [address] Dec, Folliculitis L73.9 [facility] [address] [place] [id number] Dec, Mild intellectual disability F70 ; Unste marcello gait R26.81 and Generalized weakness R53.1 [facility] [address] [id number] 15 Nov, 2017 [facility] [address] [place] [address] 14 Nov, 2017 [facility] [address] [place] [address] Nov, Folliculitis L73.9 ; Tinea corporis B35. 4 and Onychomycosis B35.1 [facility] [address] [id number] Oct, [facility] [address] [place] [id number] Oct, Mood disorder F39 [facility] [address] [place] [id number] Oct, [facility] [address] [facility] [id number] [place] [address] Oct, Left hip pain M25.552 and Mu scle spasm M62.838 [facility] [address] [id number] Oct, [facility] [address] [address] Oct, 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 ; Anxiety F41.9 ; Onychomycosis B35.1 ; BMI 40.0-44.9, adult Z68.41 and Alkaline phosphatase elevation R74.8 [place] [address] [place] [id number] Sep, Mild intellectual disability F70 [facility] [address] [address] Sep, [place] [address] [address] Sep, Alkaline phosphatase elevation R74.8 [facility] [address] [address] Sep, Alkaline phosphatase elevation R74.8 [facility] [address] [address] Sep, Mood disorder F39 ; Attention deficit hy peractivity disorder (ADHD), predominantly inattentive type F90.0 ; Irritable bowel syndrome with both constipation and diarrhea K58.2 and Seizures R56.9 [facility] [address] [address] Sep, Mild intellectual disability F70 ; Depre ssion, unspecified depression type F32.9 ; Anxiety F41.9 and BMI 40.0-44.9, adult Z68.41 [place] [address] [address] Sep, [facility] [address] [address] Sep, [facility] [address] [address] Sep, [facility] [address] [address] Sep, [facility] [address] [address] 02 Sep, 2017 [facility] [address] [id number] Aug, Encounter for dental examination and ramirez aning without abnormal findings Z01.20 [facility] [address] [id number] Aug, Dental examination Z01.20 [facility] [address] [address] 14 Aug, 2017 [facility] [address] [address] Aug, Depression, unspecified depression type F32.9 ; Mild intellectual disability F70 and Anxiety F41.9 [facility] [address] [address] Aug, Mood disorder F39 ; Attention deficit hy peractivity disorder (ADHD), predominantly inattentive type F90.0 ; Irritable bowel syndrome with both constipation and diarrhea K58.2 and Seizures R56.9 [facility] [address] [place] [address] 05 Aug, 2017 Depression, unspecified depression type F32.9 ; Mild intellectual disability F70 and Anxiety F41.9 [place] [address] [place] [id number] Aug, [facility] [address] [id number] Jul, Dental examination Z01.20 and Dental car ies K02.[address] [address] Jun, Unspecified mood [affective] disorder F3 9 and 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 [facility] [address] [id number] May, Encounter for dental examination and ramirez aning without abnormal findings Z01.20 [facility] [address] [id number] Mar, Dental examination Z01.20 [facility] [address] [id number] Sep, Dental examination Z01.20 [facility] [address] [id number] January, Dental examination Z01.20 [facility] [address] [id number] Dec, Encounter for dental examination Z01.20 [facility] [address] [id number] Dec, Dental examination Z01.20 [facility] [address] [id number] Nov, Dental examination Z01.20 [facility] [address] [facility] [place] [id number] Jul, Encounter for dental examination Z01.20 and Dental examination Z01.20 [facility] [address] [facility] [place] [id number] Apr, Dental examination V72.2 [facility] [address] [id number] [place] [id number] Mar, Dental examination V72.2 [facility] [address] [place] [id number] [place] [address] January, [facility] [address] [address] January, [facility] [address] [place] [id number] [place] [address] January, [facility] [address] [place] [id number] [place] [address] January, [facility] [address] [place] [id number] [place] [address] Jul, IMMUNIZATIONS No Known Immunizations SOCIAL HISTORY Never Assessed REASON FOR VISIT request return call PLAN OF CARE VITAL SIGNS [...] in 2005 2005 and before Hospitalization History [facility] 05/2018
--- OUTSIDE RECORDS SUMMARY | 2020-03-14 17:19 | XMS REPORT ---
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 Active 681890366 Problem Unspecified mood [affective] disorder F39 Active 82785163 Problem Mild intellectual disability F70 A ctive 42968554 Problem Depression, unspecified depression type F32.9 Active 48988417 Problem Unsteady gait R26.81 Active 282688 08 Problem Postconcussion syndrome F07.81 Active 06437992 Problem Environmental allergies Z91.09 Active 917579922 Problem Hyperlipidemia, unspecified hyperlipidemia type E7 8.5 Active 18509360 Problem 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 Active 17119298 Problem Simple chronic bronchitis J41.0 Acti ve 71014937 Problem Anxiety F41.9 Active 33882093 Problem Observed sleep apnea G47.30 Active 44630903 Problem Moderate persistent asthma without complication J4 5.40 Active 566165456 Problem Contusion of left middle fin bruce without damage to nail, initial encounter S60.032A Active 86290803 Problem BMI 40.0-44.9, adult Z68.41 Active 917373667 ALLERGIES No Information ENCOUNTERS Encounter Location Date Diagnosis [facility] [address] [facility] [id number] [address] [place] [phone] 18 Feb, 2019 [facility] [address] [facility] [id number] [address] [place] [phone] Nov, Viral gastroenteritis A08.4 [facility] [address] [facility] [id number] [address] [place] [phone] Nov, Mild intellectual disability F70 and Depression, unspecified depression type F32.9 [facility] [address] [facility] [id number] [address] [place] [phone] Nov, [facility] [address] [facility] [id number] [address] [place] [phone] Oct, [facility] [address] [facility] [id number] [address] [place] [phone] Oct, [facility] [address] [facility] [id number] [address] [place] [phone] Oct, [facility] [address] [facility] [id number] [address] [place] [phone] Oct, [facility] [address] [facility] [id number] [address] [place] [phone] Oct, [facility] [address] [facility] [id number] [address] [place] [phone] Oct, [facility] [address] [facility] [id number] [address] [place] [phone] Sep, [facility] [address] [facility] [id number] [address] [place] [phone] Sep, SOB (shortness of breath) R0 6.02 and Simple chronic bronchitis J41.0 [facility] [address] [facility] [id number] [address] [place] [phone] Sep, Hyperlipidemia, unspecified hyperlipidemia type E78.5 [facility] [address] [facility] [id number] [address] [place] [phone] Sep, [facility] [address] [facility] [id number] [address] [place] [id number] Sep, Hyperlipidemia, unspecified hyperlipidemia type E78.5 [facility] [address] [place] [id number] [address] [place] [phone] Sep, [place] [address] [id number] Sep, Nail hypertrophy L60.2 and S [facility] deficit for grooming and hygiene Z74.1 [place] [address] [id number] Sep, [place] [address] [address] Sep, [place] [address] [place] [id number] [place] [phone] Aug, Elevated alkaline phosphatas e level R74.8 [place] [address] [place] [id number] [place] [phone] Aug, Mild intellectual disability F70 and Depression, unspecified depression type F32.9 [place] [address] [address] Aug, Mild intellectual disability F70 ; Depression, unspecified depression type F32.9 and BMI 45.0-49.9, adult Z68.42 [place] [address] [address] Aug, SOB (shortness of breath) R0 6.02 [place] [address] [id number] Aug, SOB (shortness of breath) R0 6.02 [place] [address] [place] [id number] [address] [place] [phone] Aug, SOB (shortness of breath) R0 6.02 [place] [address] [place] [id number] [address] [place] [phone] Aug, Elevated alkaline phosphatas e level R74.8 [place] [address] [place] [id number] [address] [place] [phone] Aug, Elevated alkaline phosphatas e level R74.8 [facility] [address] [place] [id number] [address] [place] [phone] Aug, [facility] [address] [place] [id number] [place] [phone] Aug, SOB (shortness of breath) R0 6.02 ; Seizures R56.9 ; Rash R21 and BMI 45.0-49.9, adult Z68.42 [facility] [address] [id number] 07 Aug, 2018 SOB (shortness of breath) R0 6.02 ; Seizures R56.9 ; Rash R21 and BMI 45.0-49.9, adult Z68.42 [place] [address] [place] [id number] [place] [id number] 19 Jul, 2018 [place] [address] [address] 16 Jul, 2018 Contusion of left middle fin bruce without damage to nail, initial encounter S60.032A ; Observed sleep apnea G47.30 ; Mild intellectual disability F70 and Moderate persistent asthma without complication J45.40 [place] [address] [place] [id number] [address] [place] [phone] 14 Jul, 2018 [facility] [address] [place] [id number] [place] [phone] Jul, [facility] [address] [place] [id number] [address] [place] [phone] Jul, [facility] [address] [place] [id number] [address] [place] [phone] Jun, [facility] [address] [place] [id number] [address] [place] [phone] Jun, [facility] [address] [place] [id number] [address] [place] [phone] Jun, [facility] [address] [place] [id number] [place] [phone] 16 Jun, 2018 BMI 45.0-49.9, adult Z68.42 ; Nail hypertrophy L60.2 and Self-care deficit for hygiene R46.0 [facility] [address] [facility] [id number] [address] [place] [phone] Jun, [facility] [address] [place] [id number] [place] [phone] 04 Jun, 2018 Encounter for immunization Z 23 [facility] [address] [place] [id number] [place] [phone] 28 May, 2018 Sebaceous cyst L72.3 ; Obser danuta sleep apnea G47.30 and BMI 45.0- 49.9, adult Z68.42 [facility] [address] [place] [id number] [place] [phone] May, [place] [address] [address] Apr, Environmental allergies Z91. 09 [facility] [address] [facility] [id number] [address] [place] [phone] Apr, [facility] [address] [place] [id number] [place] [phone] Apr, Nail hypertrophy L60.2 and S elf-care deficit for grooming and hygiene Z74.1 [place] [address] [facility] [id number] [address] [place] [phone] Apr, Environmental allergies Z91. 09 [facility] [address] [facility] [id number] [address] [place] [phone] Apr, [facility] [address] [place] [id number] [place] [phone] Apr, [facility] [address] [place] [id number] [address] [place] [phone] Apr, [facility] [address] [place] [id number] [place] [phone] 08 Aug, 2018 Environmental allergies Z91. 09 [facility] [address] [facility] [id number] [address] [place] [phone] Apr, [facility] [address] [facility] [id number] [address] [place] [phone] Apr, Anxiety F41.9 [facility] [address] [facility] [id number] [address] [place] [phone] Mar, Nail hypertrophy L60.2 and S elf-care deficit for hygiene R46.0 [facility] [address] [id number] [address] [place] [phone] Mar, [facility] [address] [facility] [id number] [address] [place] [phone] Mar, [facility] [address] [facility] [id number] [address] [place] [phone] Mar, Anxiety F41.9 ; Mood disorde r F39 and Dysfunction of both eustachian tubes H69.83 [place] [id number] [facility] [id number] [address] [place] [phone] Mar, Seizures R56.9 [facility] [address] [facility] [id number] [address] [place] [phone] Mar, Folliculitis L73.9 [place] [address] [facility] [id number] [address] [place] [phone] Mar, Mild intellectual disability F70 ; Depression, unspecified depression type F32.9 and Anxiety F41.9 [facility] [address] [facility] [id number] [address] [place] [phone] Mar, Seizures R56.9 and Folliculi tis L73.9 [facility] [address] [facility] [id number] [address] [place] [phone] Feb, [facility] [address] [facility] [id number] [address] [place] [phone] Feb, Postconcussion syndrome F07. 81 and Folliculitis L73.9 [facility] [address] [id number] [address] [place] [phone] Feb, Postconcussion syndrome F07. 81 [facility] [address] [id number] [address] [place] [phone] Feb, [facility] [address] [id number] [address] [place] [address] [id number] Feb, [facility] [address] [id number] [address] [place] [address] [id number] Feb, Dental caries extending into dentin K02.62 [facility] [address] [id number] [address] [place] [phone] January, [facility] [address] [id number] [address] [place] [phone] January, [facility] [address] [id number] [address] [place] [phone] January, Onychomycosis B35.1 [facility] [address] [id number] [address] [place] [address] [id number] January, Dental caries extending into dentin K02.62 [facility] [address] [id number] [address] [place] [phone] Dec, [facility] [address] [id number] [address] [place] [phone] Dec, [facility] [address] [id number] [address] [place] [phone] Dec, [facility] [address] [id number] [address] [place] [phone] Dec, Mild intellectual disability F70 ; Depression, unspecified depression type F32.9 ; Anxiety F41.9 and BMI 45.0-49.9, adult Z68.42 [facility] [address] [id number] [address] [place] [phone] Dec, Folliculitis L73.9 [facility] [address] [place] [id number] [address] [place] [phone] Dec, Mild intellectual disability F70 ; Unsteady gait R26.81 and Generalized weakness R53.1 [facility] [address] [place] [id number] [address] [place] [address] [id number] 15 Nov, 2017 [facility] [address] [id number] 14 Nov, 2017 [facility] [address] [address] Nov, Folliculitis L73.9 ; Tinea c orporis B35.4 and Onychomycosis B35.1 [facility] [id number] [place] [address] [id number] Oct, [facility] [address] [id number] Oct, Mood disorder F39 [facility] [address] [address] Oct, [facility] [address] [address] Oct, Left hip pain M25.552 and Mu scle spasm M62.838 [facility] [address] [place] [id number] [address] [place] [address] [id number] Oct, [facility] [address] [id number] Oct, Other specified mental disor ders 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 ; Anxiety F41.9 ; Onychomycosis B35.1 ; BMI 40.0-44.9, adult Z68.41 and Alkaline phosphatase elevation R74.8 [facility] [address] [place] [id number] [address] [place] [phone] Sep, Mild intellectual disability F70 [facility] [address] [id number] Sep, [facility] [address] [facility] [id number] [address] [place] [phone] Sep, Alkaline phosphatase elevati on R74.8 [facility] [address] [id number] [address] [place] [phone] Sep, Alkaline phosphatase elevati on R74.8 [facility] [address] [facility] [id number] [address] [place] [phone] Sep, Mood disorder F39 ; Attentio n deficit hyperactivity disorder (ADHD), predominantly inattentive type F90.0 ; Irritable bowel syndrome with both constipation and diarrhea K58.2 and Seizures R56.9 [facility] [address] [facility] [id number] [address] [place] [phone] Sep, Mild intellectual disability F70 ; Depression, unspecified depression type F32.9 ; Anxiety F41.9 and BMI 40.0-44.9, adult Z68.41 [facility] [address] [facility] [id number] [address] [place] [phone] Sep, [facility] [address] [facility] [id number] [address] [place] [phone] Sep, [facility] [address] [facility] [id number] [address] [place] [id number] Sep, [facility] [address] [facility] [id number] [address] [place] [id number] Sep, [facility] [address] [facility] [id number] [address] [place] [phone] Sep, [facility] [address] [id number] [address] [place] [address] [id number] Aug, Encounter for dental examina tion and cleaning without abnormal findings Z01.20 [facility] [address] [id number] [address] [place] [address] [id number] Aug, Dental examination Z01.20 [facility] [address] [id number] [address] [place] [phone] 14 Aug, 2017 [facility] [address] [id number] [address] [place] [phone] 14 Aug, 2017 Depression, unspecified depr ession type F32.9 ; Mild intellectual disability F70 and Anxiety F41.9 [facility] [address] [id number] [address] [place] [phone] 08 Aug, 2017 Mood disorder F39 ; Attentio n deficit hyperactivity disorder (ADHD), predominantly inattentive type F90.0 ; Irritable bowel syndrome with both constipation and diarrhea K58.2 and Seizures R56.9 [place] [address] [id number] [address] [place] [phone] 05 Aug, 2017 Depression, unspecified depr ession type F32.9 ; Mild intellectual disability F70 and Anxiety F41.9 [place] [address] [id number] [address] [place] [phone] Aug, [facility] [address] [id number] [address] [place] [address] [id number] Jul, Dental examination Z01.20 an d Dental caries K02.9 [place] [address] [id number] [address] [place] [phone] Jun, Unspecified mood [affective] disorder F39 and 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 [facility] [address] [id number] [address] [place] [address] [id number] May, Encounter for dental examina tion and cleaning without abnormal findings Z01.20 [facility] [address] [id number] [address] [place] [address] [id number] Mar, Dental examination Z01.20 [facility] [address] [id number] [address] [place] [address] [id number] Sep, Dental examination Z01.20 [facility] [address] [id number] [address] [place] [address] [id number] January, Dental examination Z01.20 [facility] [address] [id number] [address] [place] [address] [id number] Dec, Encounter for dental examina tion Z01.20 [facility] [address] [id number] [address] [place] [address] [id number] Dec, Dental examination Z01.20 [facility] [address] [id number] [address] [place] [address] [id number] Nov, Dental examination Z01.20 [facility] [address] [id number] [address] [place] [address] [id number] Jul, Encounter for dental examina tion Z01.20 and Dental examination Z01.20 [facility] [address] [id number] [address] [place] [address] [id number] Apr, Dental examination V72.2 [facility] [address] [id number] [address] [place] [address] [id number] Mar, Dental examination V72.2 [facility] [address] [facility] [id number] [address] [place] [phone] January, [facility] [address] [id number] [address] [place] [phone] January, [facility] [address] [facility] [id number] [address] [place] [phone] January, [facility] [address] [facility] [id number] [address] [place] [phone] January, [facility] [address] [facility] [id number] [address] [place] [phone] Jul, IMMUNIZATIONS No Known Immunizations SOCIAL HISTORY Never Assessed REASON FOR VISIT Medication question PLAN OF CARE VITAL SIGNS MEDICATIONS Medication Instructions Dosage Frequency Start Date End Date Duration S kayode PredniSONE 20 mg Orally Once a day 1 tablet 24h Nov, 5 days Active RESULTS No Results PROCEDURES No [...] in 2005 2005 and before Hospitalization History [facility] 05/2018
--- OUTSIDE RECORDS SUMMARY | 2020-03-14 17:20 | XMS REPORT ---
Author Author Lata SAMUEL Organization 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 Active 09577847 Problem Contusion of left middle fin bruce without damage to nail, initial encounter S60.032A Active 07978757 Problem Moderate persistent asthma without complication J4 5.40 Active 841272014 Problem Environmental allergies Z91.09 Active 050335424 Problem Postconcussion syndrome F07.81 Active 88583932 Problem BMI 40.0-44.9, adult Z68.41 Active 426344806 Problem Observed sleep apnea G47.30 Active 51710490 Problem Irritable bowel syndrome with both constipation and diarrh ea K58.2 Active 89634023 Problem Unspecified mood [affective] disorder F39 Active 45268413 Problem 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 [address] [facility] [id number] [address] [place] [phone] Sep, [facility] [address] [facility] [id number] [address] [place] [phone] Aug, [facility] [address] [facility] [id number] [address] [place] [phone] Aug, Elevated alkaline phosphatas e level R74.8 [place] [address] [place] [id number] [address] [place] [phone] Aug, Elevated alkaline phosphatas e level R74.8 [facility] [address] [place] [id number] [address] [place] [phone] Aug, [facility] [address] [address] Aug, SOB (shortness of breath) R0 6.02 ; Seizures R56.9 ; Rash R21 and BMI 45.0-49.9, adult Z68.42 [place] [address] [address] 07 Aug, 2018 SOB (shortness of breath) R0 6.02 ; Seizures R56.9 ; Rash R21 and BMI 45.0-49.9, adult Z68.42 [place] [address] [place] [id number] [address] [place] [phone] 19 Jul, 2018 [facility] [address] [place] [id number] [place] [address] 16 Jul, 2018 Contusion of left middle fin bruce without damage to nail, initial encounter S60.032A ; Observed sleep apnea G47.30 ; Mild intellectual disability F70 and Moderate persistent asthma without complication J45.40 [place] [address] [place] [id number] [address] [place] [phone] Jul, [place] [address] [place] [id number] [address] [place] [phone] Jul, [place] [address] [address] Jul, [facility] [address] [place] [id number] [address] [place] [phone] Jun, [place] [address] [place] [id number] [address] [place] [phone] Jun, [facility] [address] [facility] [id number] [address] [place] [phone] Jun, [facility] [address] [place] [id number] [place] [phone] 16 Jun, 2018 BMI 45.0-49.9, adult Z68.42 ; Nail hypertrophy L60.2 and Self-care deficit for hygiene R46.0 [place] [address] [place] [id number] [place] [phone] Jun, [facility] [address] [place] [id number] [place] [phone] 04 Jun, 2018 Encounter for immunization Z 23 [place] [address] [place] [id number] [place] [phone] 28 May, 2018 Sebaceous cyst L72.3 and Obs erved sleep apnea G47.30 [place] [address] [address] May, [place] [address] [address] Apr, Environmental allergies Z91. 09 [place] [address] [place] [id number] [place] [phone] Apr, [place] [address] [place] [id number] [place] [phone] Apr, Nail hypertrophy L60.2 and S elf-care deficit for grooming and hygiene Z74.1 [facility] [address] [facility] [id number] [address] [place] [address] Apr, Environmental allergies Z91. 09 [place] [address] [place] [id number] [place] [phone] Apr, [place] [address] [place] [id number] [place] [phone] Apr, [facility] [address] [place] [id number] [place] [address] Apr, [facility] [address] [address] Apr, Environmental allergies Z91. 09 [facility] [address] [address] Apr, [facility] [address] [address] Apr, Anxiety F41.9 [facility] [address] [address] Mar, Nail hypertrophy L60.2 and S elf-care deficit for hygiene R46.0 [facility] [address] [address] Mar, [facility] [address] [address] Mar, [facility] [address] [address] Mar, Anxiety F41.9 ; Mood disorde r F39 and Dysfunction of both eustachian tubes H69.83 [place] [address] [address] Mar, Seizures R56.9 [place] [address] [address] Mar, Folliculitis L73.9 [place] [address] [address] Mar, Mild intellectual disability F70 ; Depression, unspecified depression type F32.9 and Anxiety F41.9 [place] [address] [address] Mar, Seizures R56.9 and Folliculi tis L73.9 [facility] [address] [place] [id number] [address] [place] [phone] Feb, [facility] [address] [place] [id number] [address] [place] [phone] Feb, Postconcussion syndrome F07. 81 and Folliculitis L73.9 [facility] [address] [id number] [address] [place] [phone] Feb, Postconcussion syndrome F07. 81 [facility] [address] [id number] [address] [place] [phone] Feb, [facility] [address] [id number] [address] [place] [address] [id number] Feb, [facility] [address] [id number] [address] [place] [address] [id number] Feb, Dental caries extending into dentin K02.62 [facility] [address] [id number] [address] [place] [phone] January, [facility] [address] [id number] [address] [place] [phone] January, [facility] [address] [id number] [address] [place] [address] January, Onychomycosis B35.1 [facility] [address] [id number] [address] [place] [address] [id number] January, Dental caries extending into dentin K02.62 [facility] [address] [id number] [address] [place] [phone] Dec, [facility] [address] [id number] [address] [place] [phone] Dec, [facility] [address] [id number] [address] [place] [phone] Dec, [facility] [address] [facility] [id number] [address] [place] [phone] Dec, Mild intellectual disability F70 ; Depression, unspecified depression type F32.9 ; Anxiety F41.9 and BMI 45.0-49.9, adult Z68.42 [place] [address] [address] Dec, Folliculitis L73.9 [facility] [address] [address] Dec, Mild intellectual disability F70 ; Unsteady gait R26.81 and Generalized weakness R53.1 [facility] [address] [place] [id number] [place] [address] [id number] Nov, [facility] [address] [address] Nov, [facility] [address] [address] Nov, Folliculitis L73.9 ; Tinea c orporis B35.4 and Onychomycosis B35.1 [facility] [address] [id number] Oct, [facility] [address] [address] Oct, Mood disorder F39 [facility] [address] [address] Oct, [facility] [address] [address] Oct, Left hip pain M25.552 and Mu scle spasm M62.838 [facility] [id number] [place] [address] [id number] Oct, [facility] [address] [address] Oct, Other specified mental disor ders 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 ; Anxiety F41.9 ; Onychomycosis B35.1 ; BMI 40.0-44.9, adult Z68.41 and Alkaline phosphatase elevation R74.8 [facility] [address] [address] Sep, Mild intellectual disability F70 [facility] [address] [facility] [id number] [address] [place] [phone] Sep, [facility] [address] [facility] [id number] [address] [place] [phone] Sep, Alkaline phosphatase elevati on R74.8 [facility] [address] [facility] [id number] [address] [place] [phone] Sep, Alkaline phosphatase elevati on R74.8 [facility] [address] [facility] [id number] [address] [place] [address] Sep, Mood disorder F39 ; Attentio n deficit hyperactivity disorder (ADHD), predominantly inattentive type F90.0 ; Irritable bowel syndrome with both constipation and diarrhea K58.2 and Seizures R56.9 [place] [address] [facility] [id number] [address] [place] [phone] Sep, Mild intellectual disability F70 ; Depression, unspecified depression type F32.9 ; Anxiety F41.9 and BMI 40.0-44.9, adult Z68.41 [facility] [address] [facility] [id number] [address] [place] [phone] Sep, [facility] [address] [facility] [id number] [address] [place] [phone] Sep, [facility] [address] [facility] [id number] [address] [place] [id number] Sep, [facility] [address] [facility] [id number] [address] [place] [phone] Sep, [facility] [address] [facility] [id number] [address] [place] [phone] Sep, [facility] [address] [id number] [address] [place] [address] [id number] Aug, Encounter for dental examina tion and cleaning without abnormal findings Z01.20 [facility] [address] [id number] [address] [place] [address] [id number] Aug, Dental examination Z01.20 [facility] [address] [id number] [address] [place] [phone] Aug, [facility] [address] [id number] [address] [place] [phone] Aug, Depression, unspecified depr ession type F32.9 ; Mild intellectual disability F70 and Anxiety F41.9 [facility] [address] [id number] [place] [phone] 08 Aug, 2017 Mood disorder F39 ; Attentio n deficit hyperactivity disorder (ADHD), predominantly inattentive type F90.0 ; Irritable bowel syndrome with both constipation and diarrhea K58.2 and Seizures R56.9 [place] [address] [id number] [address] [place] [phone] 05 Aug, 2017 Depression, unspecified depr ession type F32.9 ; Mild intellectual disability F70 and Anxiety F41.9 [facility] [address] [id number] [address] [place] [phone] 04 Aug, 2017 [facility] [address] [id number] [id number] Jul, Dental examination Z01.20 an d Dental caries K02.9 [facility] [address] [id number] [address] [place] [phone] Jun, Unspecified mood [affective] disorder F39 and 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 [facility] [address] [id number] [place] [address] [id number] May, Encounter for dental examina tion and cleaning without abnormal findings Z01.20 [facility] [address] [id number] [address] [place] [address] [id number] Mar, Dental examination Z01.20 [facility] [address] [id number] [place] [address] [id number] Sep, Dental examination Z01.20 [facility] [address] [id number] [address] [place] [address] [id number] January, Dental examination Z01.20 [facility] [address] [id number] [address] [place] [address] [id number] Dec, Encounter for dental examina tion Z01.20 [facility] [address] [id number] [address] [place] [address] [id number] Dec, Dental examination Z01.20 [facility] [address] [id number] [address] [place] [address] [id number] Nov, Dental examination Z01.20 [facility] [address] [id number] [address] [place] [address] [id number] Jul, Encounter for dental examina tion Z01.20 and Dental examination Z01.20 [facility] [address] [id number] [address] [place] [address] [id number] Apr, Dental examination V72.2 [facility] [address] [id number] [address] [place] [address] [id number] Mar, Dental examination V72.2 [facility] [address] [id number] [address] [place] [phone] January, [facility] [address] [id number] [address] [place] [phone] January, [facility] [address] [facility] [id number] [address] [place] [phone] January, [facility] [address] [id number] [address] [place] [phone] January, [facility] [address] [id number] [address] [place] [phone] Jul, IMMUNIZATIONS No Known Immunizations SOCIAL HISTORY Never Assessed REASON FOR VISIT Lab results PLAN OF CARE VITAL SIGNS MEDICATIONS Unknown [...] in 2005 2005 and before Hospitalization History [facility] 05/2018
--- OUTSIDE RECORDS SUMMARY | 2020-03-14 17:20 | XMS REPORT ---
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 Active 21727616 Problem Contusion of left middle fin bruce without damage to nail, initial encounter S60.032A Active 86708854 Problem Moderate persistent asthma without complication J4 5.40 Active 437983469 Problem Environmental allergies Z91.09 Active 156775983 Problem Postconcussion syndrome F07.81 Active 37793509 Problem BMI 40.0-44.9, adult Z68.41 Active 611518147 Problem Observed sleep apnea G47.30 Active 87011438 Problem Irritable bowel syndrome with both constipation and diarrh ea K58.2 Active 98948541 Problem Unspecified mood [affective] disorder F39 Active 57897684 Problem 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 [id number] [address] [place] [id number] Sep, [facility] [address] [facility] [id number] [address] [place] [phone] Aug, [facility] [address] [facility] [id number] [address] [place] [phone] Aug, Elevated alkaline phosphatas e level R74.8 [place] [address] [place] [id number] [address] [place] [phone] Aug, Elevated alkaline phosphatas e level R74.8 [facility] [address] [place] [id number] [address] [place] [phone] Aug, [facility] [address] [address] Aug, SOB (shortness of breath) R0 6.02 ; Seizures R56.9 ; Rash R21 and BMI 45.0-49.9, adult Z68.42 [place] [address] [address] 07 Aug, 2018 SOB (shortness of breath) R0 6.02 ; Seizures R56.9 ; Rash R21 and BMI 45.0-49.9, adult Z68.42 [place] [address] [place] [id number] [address] [place] [id number] 19 Jul, 2018 [facility] [address] [place] [id number] [place] [phone] 16 Jul, 2018 Contusion of left middle fin bruce without damage to nail, initial encounter S60.032A ; Observed sleep apnea G47.30 ; Mild intellectual disability F70 and Moderate persistent asthma without complication J45.40 [place] [address] [place] [id number] [address] [place] [phone] Jul, [place] [address] [place] [id number] [address] [place] [phone] Jul, [place] [address] [address] Jul, [facility] [address] [place] [id number] [address] [place] [phone] Jun, [place] [address] [place] [id number] [address] [place] [phone] Jun, [facility] [address] [facility] [id number] [address] [place] [phone] Jun, [facility] [address] [place] [id number] [place] [address] 16 Jun, 2018 BMI 45.0-49.9, adult Z68.42 ; Nail hypertrophy L60.2 and Self-care deficit for hygiene R46.0 [place] [address] [place] [id number] [place] [phone] Jun, [facility] [address] [place] [id number] [place] [id number] 04 Jun, 2018 Encounter for immunization Z 23 [place] [address] [place] [id number] [place] [phone] 28 May, 2018 Sebaceous cyst L72.3 and Obs erved sleep apnea G47.30 [place] [address] [address] May, [place] [address] [address] Apr, Environmental allergies Z91. 09 [place] [address] [place] [id number] [place] [phone] Apr, [place] [address] [place] [id number] [place] [phone] Apr, Nail hypertrophy L60.2 and S elf-care deficit for grooming and hygiene Z74.1 [facility] [address] [facility] [id number] [address] [place] [address] Apr, Environmental allergies Z91. 09 [place] [address] [place] [id number] [place] [phone] Apr, [place] [address] [place] [id number] [place] [phone] Apr, [facility] [address] [place] [id number] [place] [phone] Apr, [facility] [address] [address] Apr, Environmental allergies Z91. 09 [facility] [address] [address] Apr, [facility] [address] [address] Apr, Anxiety F41.9 [facility] [address] [address] Mar, Nail hypertrophy L60.2 and S elf-care deficit for hygiene R46.0 [facility] [address] [address] Mar, [facility] [address] [address] Mar, [facility] [address] [address] Mar, Anxiety F41.9 ; Mood disorde r F39 and Dysfunction of both eustachian tubes H69.83 [place] [address] [address] Mar, Seizures R56.9 [place] [address] [address] Mar, Folliculitis L73.9 [place] [address] [address] Mar, Mild intellectual disability F70 ; Depression, unspecified depression type F32.9 and Anxiety F41.9 [place] [address] [address] Mar, Seizures R56.9 and Folliculi tis L73.9 [facility] [address] [place] [id number] [address] [place] [phone] Feb, [facility] [address] [place] [id number] [address] [place] [phone] Feb, Postconcussion syndrome F07. 81 and Folliculitis L73.9 [facility] [address] [id number] [address] [place] [phone] Feb, Postconcussion syndrome F07. 81 [facility] [address] [id number] [address] [place] [phone] Feb, [facility] [address] [id number] [address] [place] [address] [id number] Feb, [facility] [address] [id number] [address] [place] [address] [id number] Feb, Dental caries extending into dentin K02.62 [facility] [address] [id number] [address] [place] [phone] January, [facility] [address] [id number] [address] [place] [phone] January, [facility] [address] [id number] [address] [place] [id number] January, Onychomycosis B35.1 [facility] [address] [id number] [address] [place] [address] [id number] January, Dental caries extending into dentin K02.62 [facility] [address] [id number] [address] [place] [phone] Dec, [facility] [address] [id number] [address] [place] [phone] Dec, [facility] [address] [id number] [address] [place] [phone] Dec, [facility] [address] [facility] [id number] [address] [place] [phone] Dec, Mild intellectual disability F70 ; Depression, unspecified depression type F32.9 ; Anxiety F41.9 and BMI 45.0-49.9, adult Z68.42 [place] [address] [address] Dec, Folliculitis L73.9 [facility] [address] [address] Dec, Mild intellectual disability F70 ; Unsteady gait R26.81 and Generalized weakness R53.1 [facility] [address] [place] [id number] [place] [address] [phone] Nov, [facility] [address] [address] Nov, [facility] [address] [address] Nov, Folliculitis L73.9 ; Tinea c orporis B35.4 and Onychomycosis B35.1 [facility] [address] [id number] Oct, [facility] [address] [address] Oct, Mood disorder F39 [facility] [address] [address] Oct, [facility] [address] [address] Oct, Left hip pain M25.552 and Mu scle spasm M62.838 [facility] [id number] [place] [address] [id number] Oct, [facility] [address] [address] Oct, Other specified mental disor ders 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 ; Anxiety F41.9 ; Onychomycosis B35.1 ; BMI 40.0-44.9, adult Z68.41 and Alkaline phosphatase elevation R74.8 [facility] [address] [address] Sep, Mild intellectual disability F70 [facility] [address] [facility] [id number] [address] [place] [phone] Sep, [facility] [address] [facility] [id number] [address] [place] [phone] Sep, Alkaline phosphatase elevati on R74.8 [facility] [address] [facility] [id number] [address] [place] [phone] Sep, Alkaline phosphatase elevati on R74.8 [facility] [address] [facility] [id number] [address] [place] [phone] Sep, Mood disorder F39 ; Attentio n deficit hyperactivity disorder (ADHD), predominantly inattentive type F90.0 ; Irritable bowel syndrome with both constipation and diarrhea K58.2 and Seizures R56.9 [place] [address] [facility] [id number] [address] [place] [phone] Sep, Mild intellectual disability F70 ; Depression, unspecified depression type F32.9 ; Anxiety F41.9 and BMI 40.0-44.9, adult Z68.41 [facility] [address] [facility] [id number] [address] [place] [phone] Sep, [facility] [address] [facility] [id number] [address] [place] [phone] Sep, [facility] [address] [facility] [id number] [address] [place] [phone] Sep, [facility] [address] [facility] [id number] [address] [place] [phone] Sep, [facility] [address] [facility] [id number] [address] [place] [phone] Sep, [facility] [address] [id number] [address] [place] [address] [id number] Aug, Encounter for dental examina tion and cleaning without abnormal findings Z01.20 [facility] [address] [id number] [address] [place] [address] [id number] Aug, Dental examination Z01.20 [facility] [address] [id number] [address] [place] [phone] Aug, [facility] [address] [id number] [address] [place] [phone] Aug, Depression, unspecified depr ession type F32.9 ; Mild intellectual disability F70 and Anxiety F41.9 [facility] [address] [id number] [place] [phone] 08 Aug, 2017 Mood disorder F39 ; Attentio n deficit hyperactivity disorder (ADHD), predominantly inattentive type F90.0 ; Irritable bowel syndrome with both constipation and diarrhea K58.2 and Seizures R56.9 [place] [address] [id number] [address] [place] [phone] 05 Aug, 2017 Depression, unspecified depr ession type F32.9 ; Mild intellectual disability F70 and Anxiety F41.9 [facility] [address] [id number] [address] [place] [phone] 04 Aug, 2017 [facility] [id number] [id number] Jul, Dental examination Z01.20 an d Dental caries K02.9 [facility] [address] [id number] [address] [place] [phone] Jun, Unspecified mood [affective] disorder F39 and 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 [facility] [address] [id number] [place] [address] [id number] May, Encounter for dental examina tion and cleaning without abnormal findings Z01.20 [facility] [address] [id number] [address] [place] [address] [id number] Mar, Dental examination Z01.20 [facility] [address] [id number] [place] [address] [id number] Sep, Dental examination Z01.20 [facility] [address] [id number] [address] [place] [address] [id number] January, Dental examination Z01.20 [facility] [address] [id number] [address] [place] [address] [id number] Dec, Encounter for dental examina tion Z01.20 [facility] [address] [id number] [address] [place] [address] [id number] Dec, Dental examination Z01.20 [facility] [address] [id number] [address] [place] [address] [id number] Nov, Dental examination Z01.20 [facility] [address] [id number] [address] [place] [address] [id number] Jul, Encounter for dental examina tion Z01.20 and Dental examination Z01.20 [facility] [address] [id number] [address] [place] [address] [id number] Apr, Dental examination V72.2 [facility] [address] [id number] [address] [place] [address] [id number] Mar, Dental examination V72.2 [facility] [address] [id number] [address] [place] [phone] January, [facility] [address] [id number] [address] [place] [phone] January, [facility] [address] [facility] [id number] [address] [place] [phone] January, [facility] [address] [id number] [address] [place] [phone] January, [facility] [address] [id number] [address] [place] [phone] Jul, IMMUNIZATIONS No Known Immunizations SOCIAL HISTORY Never Assessed REASON FOR VISIT medication reaction PLAN OF CARE VITAL SIGNS MEDICATIONS Unknown [...] in 2005 2005 and before Hospitalization History [facility] 05/2018
--- OUTSIDE RECORDS SUMMARY | 2020-03-14 17:20 | XMS REPORT ---
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 Active 89672277 Problem Contusion of left middle fin bruce without damage to nail, initial encounter S60.032A Active 37590100 Problem Moderate persistent asthma without complication J4 5.40 Active 379219834 Problem Environmental allergies Z91.09 Active 480381427 Problem Postconcussion syndrome F07.81 Active 90109969 Problem BMI 40.0-44.9, adult Z68.41 Active 754672354 Problem Observed sleep apnea G47.30 Active 22087924 Problem Irritable bowel syndrome with both constipation and diarrh ea K58.2 Active 19624192 Problem Unspecified mood [affective] disorder F39 Active 34756026 Problem 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 Active 504426918 Problem Attention deficit hyperactiv ity disorder (ADHD), predominantly inattentive type F90.0 Active 32079703 Problem Depression, unspecified depression type F32.9 Active 83629593 Problem Mood disorder F39 Active 685205 05 Problem Mild intellectual disability F70 A ctive [id number] ALLERGIES No Information ENCOUNTERS Encounter Location Date Diagnosis [facility] [address] [facility] [id number] [address] [place] [id number] Sep, [facility] [address] [facility] [id number] [address] [place] [phone] Aug, [facility] [address] [facility] [id number] [address] [place] [phone] Aug, SOB (shortness of breath) R0 6.02 ; Seizures R56.9 ; Rash R21 and BMI 45.0-49.9, adult Z68.42 [place] [address] [address] 07 Aug, 2018 SOB (shortness of breath) R0 6.02 ; Seizures R56.9 ; Rash R21 and BMI 45.0-49.9, adult Z68.42 [place] [address] [address] Jul, [place] [address] [address] Jul, Contusion of left middle fin bruce without damage to nail, initial encounter S60.032A ; Observed sleep apnea G47.30 ; Mild intellectual disability F70 and Moderate persistent asthma without complication J45.40 [place] [address] [address] Jul, [place] [address] [address] Jul, [place] [address] [address] Jul, [place] [address] [address] Jun, [place] [address] [place] [id number] [place] [address] Jun, [place] [address] [address] Jun, [place] [address] [address] Jun, BMI 45.0-49.9, adult Z68.42 ; Nail hypertrophy L60.2 and Self-care deficit for hygiene R46.0 [place] [address] [address] Jun, [facility] [address] [facility] [id number] [address] [place] [id number] 04 Jun, 2018 Encounter for immunization Z 23 [facility] [address] [facility] [id number] [address] [place] [phone] 28 May, 2018 Sebaceous cyst L72.3 and Obs erved sleep apnea G47.30 [facility] [address] [place] [id number] [place] [phone] May, [facility] [address] [facility] [id number] [address] [place] [phone] Apr, Environmental allergies Z91. 09 [facility] [address] [address] Apr, [facility] [address] [address] Apr, Nail hypertrophy L60.2 and S elf-care deficit for grooming and hygiene Z74.1 [facility] [address] [place] [address] Apr, Environmental allergies Z91. 09 [facility] [address] [place] [id number] [address] [place] [phone] Apr, [facility] [address] [address] Apr, [facility] [address] [place] [phone] Apr, [facility] [address] [place] [id number] [address] [place] [address] Apr, Environmental allergies Z91. 09 [facility] [address] [place] [id number] [address] [place] [phone] Apr, [facility] [address] [address] Apr, Anxiety F41.9 [facility] [address] [facility] [id number] [address] [place] [address] Mar, Nail hypertrophy L60.2 and S elf-care deficit for hygiene R46.0 [facility] [address] [facility] [id number] [address] [place] [phone] Mar, [facility] [address] [facility] [id number] [address] [place] [id number] Mar, [facility] [address] [place] [id number] [address] [place] [phone] Mar, Anxiety F41.9 ; Mood disorde r F39 and Dysfunction of both eustachian tubes H69.83 [place] [address] [place] [id number] [address] [place] [address] Mar, Seizures R56.9 [place] [address] [place] [id number] [address] [place] [address] Mar, Folliculitis L73.9 [place] [id number] [place] [id number] [address] [place] [address] Mar, Mild intellectual disability F70 ; Depression, unspecified depression type F32.9 and Anxiety F41.9 [facility] [address] [place] [id number] [address] [place] [address] Mar, Seizures R56.9 and Folliculi tis L73.9 [facility] [address] [facility] [id number] [address] [place] [id number] Feb, [facility] [address] [facility] [id number] [address] [place] [address] Feb, Postconcussion syndrome F07. 81 and Folliculitis L73.9 [facility] [address] [facility] [id number] [address] [place] [address] Feb, Postconcussion syndrome F07. 81 [facility] [address] [facility] [id number] [address] [place] [address] Feb, [place] [id number] [id number] [address] [place] [address] [id number] Feb, [facility] [address] [id number] [address] [place] [address] [id number] Feb, Dental caries extending into dentin K02.62 [facility] [address] [id number] [address] [place] [address] January, [facility] [address] [id number] [address] [place] [phone] January, [facility] [address] [id number] [address] [place] [id number] January, Onychomycosis B35.1 [facility] [address] [id number] [address] [place] [address] [id number] January, Dental caries extending into dentin K02.62 [facility] [address] [id number] [address] [place] [id number] Dec, [facility] [address] [id number] [address] [place] [phone] Dec, [facility] [address] [id number] [address] [place] [id number] Dec, [facility] [address] [id number] [address] [place] [address] Dec, Mild intellectual disability F70 ; Depression, unspecified depression type F32.9 ; Anxiety F41.9 and BMI 45.0-49.9, adult Z68.42 [facility] [address] [id number] [address] [place] [id number] Dec, Folliculitis L73.9 [facility] [address] [facility] [id number] [address] [place] [id number] Dec, Mild intellectual disability F70 ; Unsteady gait R26.81 and Generalized weakness R53.1 [facility] [address] [id number] [address] [place] [address] [id number] Nov, [facility] [address] [place] [id number] [address] [place] [phone] 14 Nov, 2017 [facility] [address] [id number] 09 Nov, 2017 Folliculitis L73.9 ; Tinea c orporis B35.4 and Onychomycosis B35.1 [facility] [address] [place] [id number] [address] [place] [id number] Oct, [facility] [address] [place] [id number] [address] [place] [phone] Oct, Mood disorder F39 [facility] [address] [address] Oct, [facility] [address] [place] [id number] [address] [place] [address] Oct, Left hip pain M25.552 and Mu scle spasm M62.838 [facility] [address] [place] [id number] [address] [place] [address] [id number] Oct, [facility] [address] [address] Oct, Other specified mental disor ders 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 ; Anxiety F41.9 ; Onychomycosis B35.1 ; BMI 40.0-44.9, adult Z68.41 and Alkaline phosphatase elevation R74.8 [facility] [address] [place] [id number] [place] [address] Sep, Mild intellectual disability F70 [facility] [address] [place] [id number] [address] [place] [phone] Sep, [facility] [address] [place] [id number] [place] [phone] Sep, Alkaline phosphatase elevati on R74.8 [place] [address] [address] Sep, Alkaline phosphatase elevati on R74.8 [facility] [address] [facility] [id number] [address] [place] [phone] Sep, Mood disorder F39 ; Attentio n deficit hyperactivity disorder (ADHD), predominantly inattentive type F90.0 ; Irritable bowel syndrome with both constipation and diarrhea K58.2 and Seizures R56.9 [place] [address] [facility] [id number] [address] [place] [phone] Sep, Mild intellectual disability F70 ; Depression, unspecified depression type F32.9 ; Anxiety F41.9 and BMI 40.0-44.9, adult Z68.41 [place] [address] [facility] [id number] [address] [place] [id number] Sep, [place] [address] [place] [id number] [address] [place] [phone] Sep, [place] [address] [facility] [id number] [address] [place] [phone] Sep, [facility] [address] [facility] [id number] [address] [place] [phone] Sep, [facility] [address] [place] [id number] [address] [place] [id number] Sep, [facility] [address] [place] [address] [id number] Aug, Encounter for dental examina tion and cleaning without abnormal findings Z01.20 [facility] [address] [id number] [address] [place] [address] [id number] Aug, Dental examination Z01.20 [facility] [address] [facility] [id number] [address] [place] [id number] Aug, [facility] [address] [facility] [id number] [address] [place] [phone] Aug, Depression, unspecified depr ession type F32.9 ; Mild intellectual disability F70 and Anxiety F41.9 [place] [id number] [id number] [address] [place] [id number] 08 Aug, 2017 Mood disorder F39 ; Attentio n deficit hyperactivity disorder (ADHD), predominantly inattentive type F90.0 ; Irritable bowel syndrome with both constipation and diarrhea K58.2 and Seizures R56.9 [facility] [address] [id number] [address] [place] [phone] 05 Aug, 2017 Depression, unspecified depr ession type F32.9 ; Mild intellectual disability F70 and Anxiety F41.9 [facility] [address] [id number] [address] [place] [id number] Aug, [facility] [address] [id number] [address] [place] [address] [id number] Jul, Dental examination Z01.20 an d Dental caries K02.9 [facility] [address] [id number] [address] [place] [id number] Jun, Unspecified mood [affective] disorder F39 and 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 [facility] [address] [id number] [address] [place] [address] [id number] May, Encounter for dental examina tion and cleaning without abnormal findings Z01.20 [facility] [address] [id number] [address] [place] [address] [id number] Mar, Dental examination Z01.20 [facility] [address] [id number] [address] [place] [address] [id number] Sep, Dental examination Z01.20 [facility] [address] [id number] [address] [place] [address] [id number] January, Dental examination Z01.20 [facility] [address] [id number] [address] [place] [address] [id number] Dec, Encounter for dental examina tion Z01.20 [facility] [address] [id number] [address] [place] [address] [id number] Dec, Dental examination Z01.20 [facility] [address] [id number] [address] [place] [address] [id number] Nov, Dental examination Z01.20 [facility] [address] [id number] [address] [place] [address] [id number] Jul, Encounter for dental examina tion Z01.20 and Dental examination Z01.20 [facility] [address] [id number] [address] [place] [address] [id number] Apr, Dental examination V72.2 [facility] [address] [id number] [address] [place] [address] [id number] Mar, Dental examination V72.2 [facility] [address] [id number] [address] [place] [phone] January, [facility] [address] [id number] [address] [place] [phone] January, [facility] [address] [id number] [address] [place] [phone] January, [facility] [address] [id number] [address] [place] [phone] January, [facility] [address] [id number] [address] [place] [phone] Jul, IMMUNIZATIONS No Known Immunizations SOCIAL HISTORY Never Assessed REASON FOR VISIT Lab (walk-in) PLAN OF CARE Activity Details Pending Test CMP Pending Test CBC Pending Test TSH Pending Test DILANTIN VITAL SIGNS MEDICATIONS Unknown Medications RESULTS No Results PROCEDURES Procedure Date Ordered Result Body Site LAB NOT BILLED BY [facility] Sep 04, 2018 VENIPUNCT, ROUTINE* Sep 04, 2018 INSTRUCTIONS MEDICATIONS ADMINISTERED No Known Medications [...]
--- OUTSIDE RECORDS SUMMARY | 2020-03-14 17:20 | XMS REPORT ---
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 Active 14404486 Problem Contusion of left middle fin bruce without damage to nail, initial encounter S60.032A Active 63181778 Problem Moderate persistent asthma without complication J4 5.40 Active 198891420 Problem Environmental allergies Z91.09 Active 274865065 Problem Postconcussion syndrome F07.81 Active 75083578 Problem BMI 40.0-44.9, adult Z68.41 Active 000557175 Problem Observed sleep apnea G47.30 Active 31246484 Problem Irritable bowel syndrome with both constipation and diarrh ea K58.2 Active 25075588 Problem Unspecified mood [affective] disorder F39 Active 23615573 Problem 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 [id number] [address] [place] [address] Aug, [facility] [address] [facility] [id number] [address] [place] [phone] Aug, [facility] [address] [facility] [id number] [address] [place] [address] Jul, [facility] [address] [place] [id number] [address] [place] [id number] Jul, Contusion of left middle fin bruce without damage to nail, initial encounter S60.032A ; Observed sleep apnea G47.30 ; Mild intellectual disability F70 and Moderate persistent asthma without complication J45.40 [facility] [address] [place] [id number] [place] [phone] Jul, [facility] [address] [place] [id number] [place] [phone] Jul, [facility] [address] [address] Jul, [facility] [address] [address] Jun, [facility] [address] [address] Jun, [facility] [address] [phone] Jun, [facility] [address] [address] Jun, BMI 45.0-49.9, adult Z68.42 ; Nail hypertrophy L60.2 and Self-care deficit for hygiene R46.0 [facility] [address] [address] Jun, [facility] [address] [place] [id number] [address] [place] [address] Jun, Encounter for immunization Z 23 [facility] [address] [place] [id number] [place] [phone] 28 May, 2018 Sebaceous cyst L72.3 and Obs erved sleep apnea G47.30 [facility] [address] [place] [id number] [place] [address] 10 May, 2018 [facility] [address] [id number] [address] [place] [id number] 30 Apr, 2018 Environmental allergies Z91. 09 [facility] [address] [id number] [address] [place] [address] Apr, [facility] [address] [id number] [address] [place] [address] Apr, Nail hypertrophy L60.2 and S elf-care deficit for grooming and hygiene Z74.1 [facility] [address] [id number] [address] [place] [address] Apr, Environmental allergies Z91. 09 [facility] [address] [id number] [address] [place] [address] Apr, [facility] [address] [id number] [address] [place] [phone] Apr, [facility] [address] [id number] [address] [place] [address] Apr, [facility] [address] [id number] [address] [place] [address] Apr, Environmental allergies Z91. 09 [facility] [address] [id number] [address] [place] [address] Apr, [facility] [address] [facility] [id number] [address] [place] [address] Apr, Anxiety F41.9 [facility] [address] [id number] [address] [place] [address] Mar, Nail hypertrophy L60.2 and S elf-care deficit for hygiene R46.0 [facility] [address] [id number] [address] [place] [address] Mar, [facility] [address] [facility] [id number] [address] [place] [address] Mar, [facility] [address] [facility] [id number] [address] [place] [address] Mar, Anxiety F41.9 ; Mood disorde r F39 and Dysfunction of both eustachian tubes H69.83 [facility] [address] [facility] [id number] [address] [place] [address] Mar, Seizures R56.9 [facility] [address] [facility] [id number] [address] [place] [address] Mar, Folliculitis L73.9 [facility] [address] [facility] [id number] [address] [place] [address] Mar, Mild intellectual disability F70 ; Depression, unspecified depression type F32.9 and Anxiety F41.9 [facility] [address] [facility] [id number] [address] [place] [address] Mar, Seizures R56.9 and Folliculi tis L73.9 [place] [address] [facility] [id number] [address] [place] [address] Feb, [facility] [address] [facility] [id number] [address] [place] [address] Feb, Postconcussion syndrome F07. 81 and Folliculitis L73.9 [facility] [address] [facility] [id number] [address] [place] [address] Feb, Postconcussion syndrome F07. 81 [facility] [address] [facility] [id number] [address] [place] [address] Feb, [facility] [address] [id number] [address] [place] [address] [id number] Feb, [facility] [address] [id number] [address] [place] [address] [id number] Feb, Dental caries extending into dentin K02.62 [facility] [address] [facility] [id number] [address] [place] [address] January, [facility] [address] [facility] [id number] [address] [place] [address] January, [place] [address] [facility] [id number] [address] [place] [address] January, Onychomycosis B35.1 [facility] [address] [facility] [id number] [address] [place] [address] [id number] January, Dental caries extending into dentin K02.62 [facility] [address] [facility] [id number] [address] [place] [address] Dec, [facility] [address] [facility] [id number] [address] [place] [phone] Dec, [facility] [address] [facility] [id number] [address] [place] [address] Dec, [facility] [address] [place] [id number] [place] [phone] Dec, Mild intellectual disability F70 ; Depression, unspecified depression type F32.9 ; Anxiety F41.9 and BMI 45.0-49.9, adult Z68.42 [facility] [address] [place] [id number] [address] [place] [address] Dec, Folliculitis L73.9 [facility] [address] [id number] Dec, Mild intellectual disability F70 ; Unsteady gait R26.81 and Generalized weakness R53.1 [facility] [address] [facility] [id number] [address] [place] [address] [id number] Nov, [facility] [address] [facility] [id number] [address] [place] [address] Nov, [facility] [address] [facility] [id number] [address] [place] [address] Nov, Folliculitis L73.9 ; Tinea c orporis B35.4 and Onychomycosis B35.1 [facility] [address] [id number] [address] [place] [address] [id number] Oct, [facility] [address] [place] [id number] [place] [id number] Oct, Mood disorder F39 [facility] [address] [place] [id number] [place] [address] Oct, [facility] [address] [facility] [id number] [address] [place] [address] Oct, Left hip pain M25.552 and Mu scle spasm M62.838 [facility] [address] [facility] [id number] [address] [place] [address] [id number] Oct, [facility] [address] [place] [id number] [place] [address] Oct, Other specified mental disor ders 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 ; Anxiety F41.9 ; Onychomycosis B35.1 ; BMI 40.0-44.9, adult Z68.41 and Alkaline phosphatase elevation R74.8 [facility] [address] [place] [address] Sep, Mild intellectual disability F70 [facility] [address] [place] [address] Sep, [facility] [address] [place] [id number] [place] [address] Sep, Alkaline phosphatase elevati on R74.8 [place] [address] [place] [address] Sep, Alkaline phosphatase elevati on R74.8 [place] [address] [place] [id number] [place] [address] Sep, Mood disorder F39 ; Attentio n deficit hyperactivity disorder (ADHD), predominantly inattentive type F90.0 ; Irritable bowel syndrome with both constipation and diarrhea K58.2 and Seizures R56.9 [facility] [address] [place] [id number] [place] [address] Sep, Mild intellectual disability F70 ; Depression, unspecified depression type F32.9 ; Anxiety F41.9 and BMI 40.0-44.9, adult Z68.41 [facility] [address] [id number] [address] [place] [address] Sep, [facility] [address] [id number] [address] [place] [address] Sep, [facility] [address] [id number] [address] [place] [id number] Sep, [facility] [address] [id number] [address] [place] [phone] Sep, [facility] [address] [id number] [address] [place] [phone] Sep, [facility] [address] [id number] [address] [place] [address] [id number] Aug, Encounter for dental examina tion and cleaning without abnormal findings Z01.20 [facility] [address] [id number] [address] [place] [address] [id number] Aug, Dental examination Z01.20 [facility] [address] [place] [id number] [place] [phone] 14 Aug, 2017 [facility] [address] [facility] [id number] [address] [place] [phone] 14 Aug, 2017 Depression, unspecified depr ession type F32.9 ; Mild intellectual disability F70 and Anxiety F41.9 [facility] [address] [place] [id number] [place] [phone] Aug, Mood disorder F39 ; Attentio n deficit hyperactivity disorder (ADHD), predominantly inattentive type F90.0 ; Irritable bowel syndrome with both constipation and diarrhea K58.2 and Seizures R56.9 [facility] [address] [facility] [id number] [address] [place] [phone] Aug, Depression, unspecified depr ession type F32.9 ; Mild intellectual disability F70 and Anxiety F41.9 [facility] [address] [place] [id number] [address] [place] [address] Aug, [facility] [address] [id number] [address] [place] [address] [id number] Jul, Dental examination Z01.20 an d Dental caries K02.9 [facility] [address] [id number] [address] [place] [id number] Jun, Unspecified mood [affective] disorder F39 and 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 [facility] [address] [id number] [address] [place] [address] [id number] May, Encounter for dental examina tion and cleaning without abnormal findings Z01.20 [facility] [address] [id number] [address] [place] [address] [id number] Mar, Dental examination Z01.20 [facility] [address] [id number] [address] [place] [address] [id number] Sep, Dental examination Z01.20 [facility] [address] [id number] [address] [place] [address] [id number] January, Dental examination Z01.20 [facility] [address] [id number] [place] [address] [id number] Dec, Encounter for dental examina tion Z01.20 [facility] [address] [id number] [address] [place] [address] [id number] Dec, Dental examination Z01.20 [facility] [address] [id number] [address] [place] [address] [id number] Nov, Dental examination Z01.20 [facility] [address] [id number] [address] [place] [address] [id number] Jul, Encounter for dental examina tion Z01.20 and Dental examination Z01.20 [facility] [address] [id number] [address] [place] [address] [id number] Apr, Dental examination V72.2 [facility] [address] [id number] [address] [place] [address] [id number] Mar, Dental examination V72.2 [facility] [address] [facility] [id number] [address] [place] [id number] January, [facility] [address] [facility] [id number] [address] [place] [phone] January, [facility] [address] [facility] [id number] [address] [place] [phone] January, [facility] [address] [facility] [id number] [address] [place] [phone] January, [facility] [address] [facility] [id number] [address] [place] [phone] Jul, IMMUNIZATIONS No Known Immunizations SOCIAL HISTORY [...] in 2005 2005 and before Hospitalization History [facility] 05/2018
--- OUTSIDE RECORDS SUMMARY | 2020-03-14 17:20 | XMS REPORT ---
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 Active 68329171 Problem Contusion of left middle fin bruce without damage to nail, initial encounter S60.032A Active 82585534 Problem Moderate persistent asthma without complication J4 5.40 Active 100339212 Problem Environmental allergies Z91.09 Active 306406854 Problem Postconcussion syndrome F07.81 Active 37312625 Problem BMI 40.0-44.9, adult Z68.41 Active 873577150 Problem Observed sleep apnea G47.30 Active 76298259 Problem Irritable bowel syndrome with both constipation and diarrh ea K58.2 Active 17661267 Problem Unspecified mood [affective] disorder F39 Active 14669372 Problem 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 Active 902719196 Problem Attention deficit hyperactiv ity disorder (ADHD), predominantly inattentive type F90.0 Active 84021020 Problem Depression, unspecified depression type F32.9 Active 18864877 Problem Mood disorder F39 Active 163612 05 Problem Mild intellectual disability F70 A ctive [id number] ALLERGIES No Information ENCOUNTERS Encounter Location Date Diagnosis [facility] [address] [facility] [id number] [address] [place] [phone] Aug, [facility] [address] [facility] [id number] [address] [place] [phone] Aug, [facility] [address] [facility] [id number] [address] [place] [id number] Jul, [facility] [address] [place] [id number] [address] [place] [phone] Jul, Contusion of left middle fin bruce without damage to nail, initial encounter S60.032A ; Observed sleep apnea G47.30 ; Mild intellectual disability F70 and Moderate persistent asthma without complication J45.40 [facility] [address] [place] [id number] [place] [phone] Jul, [facility] [address] [place] [id number] [place] [phone] Jul, [facility] [address] [phone] Jul, [facility] [address] [phone] Jun, [facility] [address] [phone] Jun, [facility] [address] [phone] Jun, [facility] [address] [id number] Jun, BMI 45.0-49.9, adult Z68.42 ; Nail hypertrophy L60.2 and Self-care deficit for hygiene R46.0 [facility] [address] [phone] Jun, [facility] [address] [place] [id number] [address] [place] [phone] Jun, Encounter for immunization Z 23 [facility] [address] [place] [id number] [place] [phone] 28 May, 2018 Sebaceous cyst L72.3 and Obs erved sleep apnea G47.30 [facility] [address] [place] [id number] [address] [place] [phone] 10 May, 2018 [facility] [address] [id number] [address] [place] [id number] 30 Apr, 2018 Environmental allergies Z91. 09 [facility] [address] [id number] [address] [place] [phone] Apr, [facility] [address] [id number] [address] [place] [phone] Apr, Nail hypertrophy L60.2 and S elf-care deficit for grooming and hygiene Z74.1 [facility] [address] [id number] [address] [place] [phone] Apr, Environmental allergies Z91. 09 [facility] [address] [id number] [address] [place] [phone] Apr, [facility] [address] [id number] [address] [place] [phone] Apr, [facility] [address] [id number] [address] [place] [phone] Apr, [facility] [address] [id number] [address] [place] [phone] Apr, Environmental allergies Z91. 09 [facility] [address] [id number] [address] [place] [phone] Apr, [facility] [address] [facility] [id number] [address] [place] [phone] Apr, Anxiety F41.9 [facility] [address] [id number] [address] [place] [phone] Mar, Nail hypertrophy L60.2 and S elf-care deficit for hygiene R46.0 [facility] [address] [id number] [address] [place] [phone] Mar, [facility] [address] [facility] [id number] [address] [place] [phone] Mar, [facility] [address] [facility] [id number] [address] [place] [id number] Mar, Anxiety F41.9 ; Mood disorde r F39 and Dysfunction of both eustachian tubes H69.83 [facility] [address] [facility] [id number] [address] [place] [phone] Mar, Seizures R56.9 [facility] [address] [facility] [id number] [address] [place] [id number] Mar, Folliculitis L73.9 [facility] [address] [facility] [id number] [address] [place] [phone] Mar, Mild intellectual disability F70 ; Depression, unspecified depression type F32.9 and Anxiety F41.9 [facility] [address] [facility] [id number] [address] [place] [phone] Mar, Seizures R56.9 and Folliculi tis L73.9 [place] [address] [facility] [id number] [address] [place] [phone] Feb, [facility] [address] [facility] [id number] [address] [place] [phone] Feb, Postconcussion syndrome F07. 81 and Folliculitis L73.9 [facility] [address] [facility] [id number] [address] [place] [phone] Feb, Postconcussion syndrome F07. 81 [facility] [address] [facility] [id number] [address] [place] [phone] Feb, [facility] [address] [id number] [address] [place] [address] [id number] Feb, [facility] [address] [id number] [address] [place] [address] [id number] Feb, Dental caries extending into dentin K02.62 [facility] [address] [facility] [id number] [address] [place] [phone] January, [facility] [address] [facility] [id number] [address] [place] [id number] January, [place] [address] [facility] [id number] [address] [place] [phone] January, Onychomycosis B35.1 [facility] [address] [facility] [id number] [address] [place] [address] [id number] January, Dental caries extending into dentin K02.62 [facility] [address] [facility] [id number] [address] [place] [phone] Dec, [facility] [address] [facility] [id number] [address] [place] [phone] Dec, [facility] [address] [facility] [id number] [address] [place] [id number] Dec, [facility] [address] [place] [id number] [place] [phone] Dec, Mild intellectual disability F70 ; Depression, unspecified depression type F32.9 ; Anxiety F41.9 and BMI 45.0-49.9, adult Z68.42 [facility] [address] [place] [id number] [address] [place] [phone] Dec, Folliculitis L73.9 [facility] [address] [id number] Dec, Mild intellectual disability F70 ; Unsteady gait R26.81 and Generalized weakness R53.1 [facility] [address] [facility] [id number] [address] [place] [id number] Nov, [facility] [address] [facility] [id number] [address] [place] [phone] Nov, [facility] [address] [facility] [id number] [address] [place] [phone] Nov, Folliculitis L73.9 ; Tinea c orporis B35.4 and Onychomycosis B35.1 [facility] [address] [id number] [address] [place] [address] [id number] Oct, [facility] [address] [place] [id number] [address] [place] [phone] Oct, Mood disorder F39 [facility] [address] [place] [id number] [address] [place] [phone] Oct, [facility] [address] [facility] [id number] [address] [place] [phone] Oct, Left hip pain M25.552 and Mu scle spasm M62.838 [facility] [address] [facility] [id number] [address] [place] [address] [id number] Oct, [facility] [address] [place] [id number] [address] [place] [phone] Oct, Other specified mental disor ders 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 ; Anxiety F41.9 ; Onychomycosis B35.1 ; BMI 40.0-44.9, adult Z68.41 and Alkaline phosphatase elevation R74.8 [facility] [id number] [place] [phone] Sep, Mild intellectual disability F70 [facility] [id number] [place] [phone] Sep, [facility] [address] [place] [id number] [address] [place] [phone] Sep, Alkaline phosphatase elevati on R74.8 [place] [address] [place] [phone] Sep, Alkaline phosphatase elevati on R74.8 [place] [address] [place] [id number] [address] [place] [id number] Sep, Mood disorder F39 ; Attentio n deficit hyperactivity disorder (ADHD), predominantly inattentive type F90.0 ; Irritable bowel syndrome with both constipation and diarrhea K58.2 and Seizures R56.9 [facility] [address] [place] [id number] [address] [place] [phone] Sep, Mild intellectual disability F70 ; Depression, unspecified depression type F32.9 ; Anxiety F41.9 and BMI 40.0-44.9, adult Z68.41 [facility] [address] [id number] [address] [place] [phone] Sep, [facility] [address] [id number] [address] [place] [phone] Sep, [facility] [address] [id number] [address] [place] [phone] Sep, [facility] [address] [id number] [address] [place] [phone] Sep, [facility] [address] [id number] [address] [place] [phone] Sep, [facility] [address] [id number] [address] [place] [address] [id number] Aug, Encounter for dental examina tion and cleaning without abnormal findings Z01.20 [facility] [address] [id number] [address] [place] [address] [id number] Aug, Dental examination Z01.20 [facility] [address] [place] [id number] [address] [place] [id number] 14 Aug, 2017 [facility] [address] [facility] [id number] [address] [place] [phone] 14 Aug, 2017 Depression, unspecified depr ession type F32.9 ; Mild intellectual disability F70 and Anxiety F41.9 [facility] [address] [place] [id number] [address] [place] [phone] Aug, Mood disorder F39 ; Attentio n deficit hyperactivity disorder (ADHD), predominantly inattentive type F90.0 ; Irritable bowel syndrome with both constipation and diarrhea K58.2 and Seizures R56.9 [facility] [address] [facility] [id number] [address] [place] [phone] Aug, Depression, unspecified depr ession type F32.9 ; Mild intellectual disability F70 and Anxiety F41.9 [facility] [address] [place] [id number] [address] [place] [phone] Aug, [facility] [address] [id number] [address] [place] [address] [id number] Jul, Dental examination Z01.20 an d Dental caries K02.9 [facility] [address] [id number] [address] [place] [phone] Jun, Unspecified mood [affective] disorder F39 and 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 [facility] [address] [id number] [address] [place] [address] [id number] May, Encounter for dental examina tion and cleaning without abnormal findings Z01.20 [facility] [address] [id number] [address] [place] [address] [id number] Mar, Dental examination Z01.20 [facility] [address] [id number] [address] [place] [address] [id number] Sep, Dental examination Z01.20 [facility] [address] [id number] [address] [place] [address] [id number] January, Dental examination Z01.20 [facility] [address] [id number] [place] [address] [id number] Dec, Encounter for dental examina tion Z01.20 [facility] [address] [id number] [address] [place] [address] [id number] Dec, Dental examination Z01.20 [facility] [address] [id number] [address] [place] [address] [id number] Nov, Dental examination Z01.20 [facility] [address] [id number] [address] [place] [address] [id number] Jul, Encounter for dental examina tion Z01.20 and Dental examination Z01.20 [facility] [address] [id number] [address] [place] [address] [id number] Apr, Dental examination V72.2 [facility] [address] [id number] [address] [place] [address] [id number] Mar, Dental examination V72.2 [facility] [address] [facility] [id number] [address] [place] [phone] January, [facility] [address] [facility] [id number] [address] [place] [phone] January, [facility] [address] [facility] [id number] [address] [place] [phone] January, [facility] [address] [facility] [id number] [address] [place] [phone] January, [facility] [address] [facility] [id number] [address] [place] [phone] Jul, IMMUNIZATIONS No Known Immunizations SOCIAL HISTORY Never Assessed REASON FOR VISIT needs physical faxed PLAN OF CARE VITAL SIGNS MEDICATIONS Unknown [...] in 2005 2005 and before Hospitalization History [facility] 05/2018
--- OUTSIDE RECORDS SUMMARY | 2020-03-14 17:20 | XMS REPORT ---
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 Active 12012104 Problem Contusion of left middle fin bruce without damage to nail, initial encounter S60.032A Active 59659614 Problem Moderate persistent asthma without complication J4 5.40 Active 182888309 Problem Environmental allergies Z91.09 Active 198733446 Problem Postconcussion syndrome F07.81 Active 05223144 Problem BMI 40.0-44.9, adult Z68.41 Active 049326895 Problem Observed sleep apnea G47.30 Active 28272332 Problem Irritable bowel syndrome with both constipation and diarrh ea K58.2 Active 25703238 Problem Unspecified mood [affective] disorder F39 Active 44372429 Problem 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 Active 890310873 Problem Attention deficit hyperactiv ity disorder (ADHD), predominantly inattentive type F90.0 Active 45561344 Problem Depression, unspecified depression type F32.9 Active 87117527 Problem Mood disorder F39 Active 586777 05 Problem Mild intellectual disability F70 A ctive [id number] ALLERGIES No Information ENCOUNTERS Encounter Location Date Diagnosis [facility] [address] [id number] [address] [place] [phone] Sep, [facility] [address] [id number] [address] [place] [phone] Aug, [facility] [address] [id number] [address] [place] [phone] Aug, Elevated alkaline phosphatas e level R74.8 [place] [address] [id number] [address] [place] [phone] Aug, Elevated alkaline phosphatas e level R74.8 [facility] [address] [id number] [address] [place] [phone] Aug, [facility] [address] [address] Aug, SOB (shortness of breath) R0 6.02 ; Seizures R56.9 ; Rash R21 and BMI 45.0-49.9, adult Z68.42 [place] [address] [address] 07 Aug, 2018 SOB (shortness of breath) R0 6.02 ; Seizures R56.9 ; Rash R21 and BMI 45.0-49.9, adult Z68.42 [place] [address] [id number] [address] [place] [id number] 19 Jul, 2018 [facility] [id number] [place] [address] 16 Jul, 2018 Contusion of left middle fin bruce without damage to nail, initial encounter S60.032A ; Observed sleep apnea G47.30 ; Mild intellectual disability F70 and Moderate persistent asthma without complication J45.40 [place] [address] [id number] [address] [place] [id number] Jul, [place] [address] [id number] [address] [place] [phone] Jul, [place] [address] [address] Jul, [facility] [address] [id number] [address] [place] [phone] Jun, [place] [address] [id number] [address] [place] [id number] Jun, [facility] [address] [id number] [address] [place] [id number] Jun, [facility] [id number] [place] [address] 16 Jun, 2018 BMI 45.0-49.9, adult Z68.42 ; Nail hypertrophy L60.2 and Self-care deficit for hygiene R46.0 [place] [id number] [place] [address] Jun, [facility] [id number] [place] [address] 04 Jun, 2018 Encounter for immunization Z 23 [place] [id number] [place] [address] 28 May, 2018 Sebaceous cyst L72.3 and Obs erved sleep apnea G47.30 [place] [address] [address] May, [place] [address] [address] Apr, Environmental allergies Z91. 09 [place] [address] [id number] [place] [address] Apr, [place] [id number] [place] [address] Apr, Nail hypertrophy L60.2 and S elf-care deficit for grooming and hygiene Z74.1 [facility] [address] [id number] [address] [place] [address] Apr, Environmental allergies Z91. 09 [place] [id number] [place] [phone] Apr, [place] [address] [id number] [place] [phone] Apr, [facility] [id number] [place] [address] Apr, [facility] [address] [address] Apr, Environmental allergies Z91. 09 [facility] [address] [address] Apr, [facility] [address] [address] Apr, Anxiety F41.9 [facility] [address] [address] Mar, Nail hypertrophy L60.2 and S elf-care deficit for hygiene R46.0 [facility] [address] [address] Mar, [facility] [address] [address] Mar, [facility] [address] [address] Mar, Anxiety F41.9 ; Mood disorde r F39 and Dysfunction of both eustachian tubes H69.83 [place] [address] [address] Mar, Seizures R56.9 [place] [address] [address] Mar, Folliculitis L73.9 [place] [address] [address] Mar, Mild intellectual disability F70 ; Depression, unspecified depression type F32.9 and Anxiety F41.9 [place] [address] [address] Mar, Seizures R56.9 and Folliculi tis L73.9 [facility] [address] [id number] [address] [place] [address] Feb, [facility] [address] [id number] [address] [place] [address] Feb, Postconcussion syndrome F07. 81 and Folliculitis L73.9 [facility] [address] [id number] [address] [place] [address] Feb, Postconcussion syndrome F07. 81 [facility] [address] [id number] [address] [place] [address] Feb, [facility] [address] [id number] [address] [place] [id number] Feb, [facility] [address] [id number] [address] [place] [address] [id number] Feb, Dental caries extending into dentin K02.62 [facility] [address] [id number] [address] [place] [address] January, [facility] [address] [id number] [address] [place] [phone] January, [facility] [address] [id number] [address] [place] [phone] January, Onychomycosis B35.1 [facility] [address] [id number] [address] [place] [address] [phone] January, Dental caries extending into dentin K02.62 [facility] [address] [id number] [address] [place] [phone] Dec, [facility] [address] [id number] [address] [place] [id number] Dec, [facility] [address] [id number] [address] [place] [phone] Dec, [facility] [address] [id number] [address] [place] [address] Dec, Mild intellectual disability F70 ; Depression, unspecified depression type F32.9 ; Anxiety F41.9 and BMI 45.0-49.9, adult Z68.42 [place] [address] [address] Dec, Folliculitis L73.9 [facility] [address] [address] Dec, Mild intellectual disability F70 ; Unsteady gait R26.81 and Generalized weakness R53.1 [facility] [id number] [place] [address] [id number] Nov, [facility] [address] [address] Nov, [facility] [address] [address] Nov, Folliculitis L73.9 ; Tinea c orporis B35.4 and Onychomycosis B35.1 [facility] [address] [id number] Oct, [facility] [address] [address] Oct, Mood disorder F39 [facility] [address] [address] Oct, [facility] [address] [address] Oct, Left hip pain M25.552 and Mu scle spasm M62.838 [facility] [id number] [place] [id number] Oct, [facility] [address] [address] Oct, Other specified mental disor ders 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 ; Anxiety F41.9 ; Onychomycosis B35.1 ; BMI 40.0-44.9, adult Z68.41 and Alkaline phosphatase elevation R74.8 [facility] [address] [address] Sep, Mild intellectual disability F70 [facility] [address] [id number] [address] [place] [address] Sep, [facility] [address] [id number] [address] [place] [address] Sep, Alkaline phosphatase elevati on R74.8 [facility] [address] [id number] [address] [place] [address] Sep, Alkaline phosphatase elevati on R74.8 [facility] [address] [id number] [address] [place] [address] Sep, Mood disorder F39 ; Attentio n deficit hyperactivity disorder (ADHD), predominantly inattentive type F90.0 ; Irritable bowel syndrome with both constipation and diarrhea K58.2 and Seizures R56.9 [place] [address] [id number] [address] [place] [address] Sep, Mild intellectual disability F70 ; Depression, unspecified depression type F32.9 ; Anxiety F41.9 and BMI 40.0-44.9, adult Z68.41 [facility] [address] [id number] [address] [place] [address] Sep, [facility] [address] [id number] [address] [place] [phone] Sep, [facility] [address] [id number] [address] [place] [id number] Sep, [facility] [address] [id number] [address] [place] [address] Sep, [facility] [address] [id number] [address] [place] [id number] Sep, [facility] [address] [id number] [address] [place] [address] [id number] Aug, Encounter for dental examina tion and cleaning without abnormal findings Z01.20 [facility] [address] [id number] [address] [place] [id number] Aug, Dental examination Z01.20 [facility] [address] [id number] [address] [place] [phone] Aug, [facility] [address] [id number] [address] [place] [phone] Aug, Depression, unspecified depr ession type F32.9 ; Mild intellectual disability F70 and Anxiety F41.9 [facility] [address] [id number] [place] [id number] 08 Aug, 2017 Mood disorder F39 ; Attentio n deficit hyperactivity disorder (ADHD), predominantly inattentive type F90.0 ; Irritable bowel syndrome with both constipation and diarrhea K58.2 and Seizures R56.9 [place] [address] [id number] [address] [place] [id number] 05 Aug, 2017 Depression, unspecified depr ession type F32.9 ; Mild intellectual disability F70 and Anxiety F41.9 [facility] [address] [id number] [address] [place] [phone] 04 Aug, 2017 [facility] [address] [id number] [id number] Jul, Dental examination Z01.20 an d Dental caries K02.9 [facility] [address] [id number] [address] [place] [id number] Jun, Unspecified mood [affective] disorder F39 and 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 [facility] [address] [id number] [place] [address] [phone] May, Encounter for dental examina tion and cleaning without abnormal findings Z01.20 [facility] [address] [id number] [address] [place] [address] [id number] Mar, Dental examination Z01.20 [facility] [address] [id number] [place] [address] [id number] Sep, Dental examination Z01.20 [facility] [address] [id number] [address] [place] [address] [id number] January, Dental examination Z01.20 [facility] [address] [id number] [address] [place] [address] [id number] Dec, Encounter for dental examina tion Z01.20 [facility] [address] [id number] [address] [place] [address] [id number] Dec, Dental examination Z01.20 [facility] [address] [id number] [address] [place] [address] [phone] Nov, Dental examination Z01.20 [facility] [address] [id number] [address] [place] [address] [id number] Jul, Encounter for dental examina tion Z01.20 and Dental examination Z01.20 [facility] [address] [id number] [address] [place] [address] [id number] Apr, Dental examination V72.2 [facility] [address] [id number] [address] [place] [address] [id number] Mar, Dental examination V72.2 [facility] [address] [id number] [address] [place] [phone] January, [facility] [address] [id number] [address] [place] [phone] January, [facility] [address] [id number] [address] [place] [phone] January, [facility] [address] [id number] [address] [place] [phone] January, [facility] [address] [id number] [address] [place] [phone] Jul, IMMUNIZATIONS No Known Immunizations SOCIAL HISTORY [...] in 2005 2005 and before Hospitalization History [facility] 05/2018
--- OUTSIDE RECORDS SUMMARY | 2020-03-14 17:21 | XMS REPORT ---
Author Author Lata SAMUEL Organization [facility] Address [address] [place] [address] Care Team Providers Care Concrete Tester Name Role Phone YU SAMUEL Unavailable PROBLEMS Type Condition ICD9-CM Code [id number] Code Onset Dates Condition S tatus SNOMED Code Problem 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 Active 594957327 Problem Depression, unspecified depression type F32.9 Active 61835035 Problem Anxiety F41.9 Active 76414447 Problem Irritable bowel syndrome with both constipation and diarrh ea K58.2 Active 79395393 Problem Attention deficit hyperactiv ity disorder (ADHD), predominantly inattentive type F90.0 Active 48768126 Problem Mood disorder F39 Active 360299 05 Problem Unspecified mood [affective] disorder F39 Active 49829209 Problem Observed sleep apnea G47.30 Active 71132092 Problem Environmental allergies Z91.09 Active 860044159 Problem 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 [address] [id number] [address] [place] [address] [phone] Jun, [facility] [address] [facility] [id number] [address] [place] [phone] Jun, [facility] [address] [facility] [id number] [address] [place] [phone] Jun, [facility] [address] [facility] [id number] [address] [place] [phone] 04 Jun, 2018 Encounter for immunization Z 23 [facility] [address] [facility] [id number] [address] [place] [address] 28 May, 2018 Sebaceous cyst L72.3 and Obs erved sleep apnea G47.30 [facility] [address] [place] [id number] [address] [place] [address] May, [facility] [address] [place] [id number] [place] [phone] Apr, Environmental allergies Z91. 09 [facility] [address] [place] [id number] [address] [place] [phone] Apr, [place] [address] [address] Apr, Nail hypertrophy L60.2 and S elf-care deficit for grooming and hygiene Z74.1 [place] [address] [address] Apr, Environmental allergies Z91. 09 [facility] [address] [place] [id number] [address] [place] [address] Apr, [facility] [address] [phone] Apr, [facility] [address] [place] [id number] [address] [place] [phone] Apr, [facility] [address] [phone] Apr, Environmental allergies Z91. 09 [facility] [address] [place] [id number] [address] [place] [address] Apr, [place] [address] [address] Apr, Anxiety F41.9 [facility] [address] [place] [id number] [address] [place] [address] Mar, Nail hypertrophy L60.2 and S elf-formerly [facility] R46.0 [facility] [address] [id number] [address] [place] [phone] Mar, [facility] [address] [facility] [id number] [address] [place] [phone] Mar, [facility] [address] [facility] [id number] [address] [place] [address] Mar, Anxiety F41.9 ; Mood disorde r F39 and Dysfunction of both eustachian tubes H69.83 [facility] [address] [facility] [id number] [address] [place] [address] Mar, Seizures R56.9 [facility] [address] [facility] [id number] [address] [place] [address] Mar, Folliculitis L73.9 [facility] [address] [facility] [id number] [address] [place] [address] Mar, Mild intellectual disability F70 ; Depression, unspecified depression type F32.9 and Anxiety F41.9 [facility] [address] [id number] [address] [place] [address] Mar, Seizures R56.9 and Folliculi tis L73.9 [facility] [address] [facility] [id number] [address] [place] [address] Feb, [facility] [address] [facility] [id number] [address] [place] [phone] Feb, Postconcussion syndrome F07. 81 and Folliculitis L73.9 [facility] [address] [id number] [address] [place] [address] Feb, Postconcussion syndrome F07. 81 [facility] [address] [facility] [id number] [address] [place] [address] Feb, [facility] [address] [id number] [address] [place] [address] [phone] Feb, [facility] [address] [id number] [address] [place] [address] [phone] Feb, Dental caries extending into dentin K02.62 [facility] [address] [id number] [address] [place] [address] January, [facility] [address] [id number] [address] [place] [phone] January, [facility] [address] [id number] [address] [place] [address] January, Onychomycosis B35.1 [facility] [address] [id number] [address] [place] [address] [phone] January, Dental caries extending into dentin K02.62 [facility] [address] [id number] [address] [place] [address] Dec, [facility] [address] [id number] [address] [place] [address] Dec, [facility] [address] [id number] [address] [place] [address] Dec, [facility] [address] [facility] [id number] [address] [place] [address] Dec, Mild intellectual disability F70 ; Depression, unspecified depression type F32.9 ; Anxiety F41.9 and BMI 45.0-49.9, adult Z68.42 [facility] [address] [id number] [address] [place] [address] Dec, Folliculitis L73.9 [facility] [address] [facility] [id number] [address] [place] [address] Dec, Mild intellectual disability F70 ; Unsteady gait R26.81 and Generalized weakness R53.1 [facility] [address] [id number] [address] [place] [address] [phone] Nov, [facility] [address] [id number] [address] [place] [phone] Nov, [facility] [address] [place] [id number] [address] [place] [address] Nov, Folliculitis L73.9 ; Tinea c orporis B35.4 and Onychomycosis B35.1 [facility] [address] [place] [id number] [address] [place] [address] [phone] Oct, [facility] [address] [place] [id number] [address] [place] [address] Oct, Mood disorder F39 [facility] [address] [place] [id number] [address] [place] [address] Oct, [facility] [address] [place] [id number] [address] [place] [address] Oct, Left hip pain M25.552 and Mu scle spasm M62.838 [facility] [id number] [place] [address] [phone] Oct, [facility] [address] [place] [id number] [address] [place] [address] Oct, Other specified mental disor ders 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 ; Anxiety F41.9 ; Onychomycosis B35.1 ; BMI 40.0-44.9, adult Z68.41 and Alkaline phosphatase elevation R74.8 [facility] [address] [place] [address] Sep, Mild intellectual disability F70 [facility] [address] [place] [address] Sep, [facility] [address] [place] [id number] [address] [place] [phone] Sep, Alkaline phosphatase elevati on R74.8 [facility] [address] [place] [address] Sep, Alkaline phosphatase elevati on R74.8 [facility] [address] [place] [id number] [address] [place] [address] Sep, Mood disorder F39 ; Attentio n deficit hyperactivity disorder (ADHD), predominantly inattentive type F90.0 ; Irritable bowel syndrome with both constipation and diarrhea K58.2 and Seizures R56.9 [facility] [address] [id number] [address] [place] [address] Sep, Mild intellectual disability F70 ; Depression, unspecified depression type F32.9 ; Anxiety F41.9 and BMI 40.0-44.9, adult Z68.41 [facility] [address] [id number] [address] [place] [address] Sep, [facility] [address] [id number] [address] [place] [phone] Sep, [facility] [address] [id number] [address] [place] [address] Sep, [facility] [address] [id number] [address] [place] [address] Sep, [facility] [address] [id number] [address] [place] [phone] Sep, [facility] [address] [id number] [address] [place] [address] [id number] Aug, Encounter for dental examina tion and cleaning without abnormal findings Z01.20 [facility] [address] [id number] [address] [place] [address] [phone] Aug, Dental examination Z01.20 [facility] [address] [id number] [address] [place] [address] Aug, [facility] [address] [id number] [address] [place] [address] Aug, Depression, unspecified depr ession type F32.9 ; Mild intellectual disability F70 and Anxiety F41.9 [facility] [address] [id number] [address] [place] [address] Aug, Mood disorder F39 ; Attentio n deficit hyperactivity disorder (ADHD), predominantly inattentive type F90.0 ; Irritable bowel syndrome with both constipation and diarrhea K58.2 and Seizures R56.9 [facility] [address] [facility] [id number] [address] [place] [phone] 05 Aug, 2017 Depression, unspecified depr ession type F32.9 ; Mild intellectual disability F70 and Anxiety F41.9 [facility] [address] [facility] [id number] [place] [phone] Aug, [facility] [id number] [place] [address] [phone] Jul, Dental examination Z01.20 an d Dental caries K02.9 [facility] [address] [place] [id number] [place] [phone] Jun, Unspecified mood [affective] disorder F39 and 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 [facility] [id number] [place] [address] [phone] May, Encounter for dental examina tion and cleaning without abnormal findings Z01.20 [facility] [address] [id number] [place] [address] [phone] Mar, Dental examination Z01.20 [facility] [address] [id number] [address] [place] [address] [phone] Sep, Dental examination Z01.20 [facility] [address] [id number] [place] [address] [phone] January, Dental examination Z01.20 [facility] [address] [id number] [address] [place] [address] [id number] Dec, Encounter for dental examina tion Z01.20 [facility] [address] [id number] [address] [place] [address] [phone] Dec, Dental examination Z01.20 [facility] [address] [id number] [address] [place] [address] [phone] Nov, Dental examination Z01.20 [facility] [address] [id number] [address] [place] [address] [id number] Jul, Encounter for dental examina tion Z01.20 and Dental examination Z01.20 [facility] [address] [id number] [address] [place] [address] [id number] Apr, Dental examination V72.2 [facility] [address] [id number] [address] [place] [address] [id number] Mar, Dental examination V72.2 [facility] [address] [id number] [address] [place] [phone] January, [facility] [address] [id number] [address] [place] [phone] January, [facility] [address] [id number] [address] [place] [phone] January, [facility] [address] [id number] [address] [place] [phone] January, [facility] [address] [id number] [address] [place] [phone] Jul, IMMUNIZATIONS Vaccine Route Administration Date Status FLULAVAL QUAD 0.5ML (6 MO & UP) 2017 IM Intramuscular Jun 29 18 Administered SOCIAL HISTORY Never Assessed REASON FOR VISIT flu shot CBrumbackRN PLAN OF CARE VITAL SIGNS MEDICATIONS Unknown Medications RESULTS No Results PROCEDURES Procedure Date Ordered Result Body Site FLULAVAL QUAD 0.5ML (6 MO AND UP) 2017Jun 29, 2018 SINGLE IMMUNIZATION ADMIN Jun 29, 2018 INSTRUCTIONS MEDICATIONS ADMINISTERED No Known Medications [...] 2005 and before Hospitalization History [facility] 05/2018
--- OUTSIDE RECORDS SUMMARY | 2020-03-14 17:21 | XMS REPORT ---
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 Active 887231876 Problem Depression, unspecified depression type F32.9 Active 87118664 Problem Anxiety F41.9 Active 52354418 Problem Irritable bowel syndrome with both constipation and diarrh ea K58.2 Active 84794267 Problem Attention deficit hyperactiv ity disorder (ADHD), predominantly inattentive type F90.0 Active 46491911 Problem Mood disorder F39 Active 175322 05 Problem Unspecified mood [affective] disorder F39 Active 51984947 Problem Observed sleep apnea G47.30 Active 11420795 Problem Environmental allergies Z91.09 Active 922653013 Problem 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 Active 25462198 Problem Mild intellectual disability F70 A ctive 35739483 Problem Postconcussion syndrome F07.81 Active 50758099 Problem Unsteady gait R26.81 Active 617294 08 ALLERGIES No Information ENCOUNTERS Encounter Location Date Diagnosis [facility] [address] [facility] [id number] [address] [place] [phone] Jul, [facility] [address] [facility] [id number] [address] [place] [phone] Jun, [facility] [address] [facility] [id number] [address] [place] [phone] Jun, [facility] [address] [facility] [id number] [address] [place] [phone] Jun, [facility] [address] [facility] [id number] [address] [place] [phone] Jun, BMI 45.0-49.9, adult Z68.42 ; Nail hypertrophy L60.2 and Self-care deficit for hygiene R46.0 [place] [address] [place] [id number] [place] [phone] Jun, [facility] [address] [id number] Jun, Encounter for immunization Z 23 [facility] [address] [place] [id number] [place] [phone] May, Sebaceous cyst L72.3 and Obs erved sleep apnea G47.30 [place] [address] [place] [id number] [place] [phone] May, [place] [address] [phone] Apr, Environmental allergies Z91. 09 [facility] [address] [place] [id number] [address] [place] [phone] Apr, [facility] [address] [place] [id number] [place] [phone] Apr, Nail hypertrophy L60.2 and S elf-care deficit for grooming and hygiene Z74.1 [place] [id number] [place] [phone] Apr, Environmental allergies Z91. 09 [facility] [address] [place] [id number] [address] [place] [phone] Apr, [facility] [place] [address] [place] [id number] [address] [place] [phone] Apr, [facility] [address] [place] [id number] [place] [phone] Apr, [facility] [address] [place] [id number] [place] [phone] Apr, Environmental allergies Z91. 09 [facility] [address] [place] [id number] [address] [place] [phone] Apr, [facility] [address] [place] [id number] [place] [phone] Apr, Anxiety F41.9 [facility] [address] [place] [id number] [place] [phone] Mar, Nail hypertrophy L60.2 and S elf-care deficit for hygiene R46.0 [facility] [address] [place] [id number] [place] [phone] Mar, [facility] [address] [place] [id number] [place] [phone] Mar, [facility] [address] [address] Mar, Anxiety F41.9 ; Mood disorde r F39 and Dysfunction of both eustachian tubes H69.83 [place] [address] [id number] Mar, Seizures R56.9 [place] [address] [address] Mar, Folliculitis L73.9 [place] [address] [address] Mar, Mild intellectual disability F70 ; Depression, unspecified depression type F32.9 and Anxiety F41.9 [facility] [address] [place] [id number] [address] [place] [phone] Mar, Seizures R56.9 and Folliculi tis L73.9 [facility] [address] [place] [id number] [place] [phone] Feb, [facility] [address] [place] [id number] [place] [phone] Feb, Postconcussion syndrome F07. 81 and Folliculitis L73.9 [place] [address] [place] [id number] [address] [place] [phone] Feb, Postconcussion syndrome F07. 81 [facility] [address] [id number] [address] [place] [phone] Feb, [facility] [address] [id number] [address] [place] [address] [id number] Feb, [facility] [address] [id number] [address] [place] [address] [phone] Feb, Dental caries extending into dentin K02.62 [facility] [address] [id number] [address] [place] [phone] January, [facility] [address] [id number] [address] [place] [phone] January, [facility] [address] [id number] [address] [place] [phone] January, Onychomycosis B35.1 [facility] [address] [id number] [address] [place] [address] [id number] January, Dental caries extending into dentin K02.62 [facility] [address] [id number] [address] [place] [phone] Dec, [facility] [address] [id number] [address] [place] [phone] Dec, [facility] [address] [id number] [address] [place] [phone] Dec, [facility] [address] [id number] [address] [place] [phone] Dec, Mild intellectual disability F70 ; Depression, unspecified depression type F32.9 ; Anxiety F41.9 and BMI 45.0-49.9, adult Z68.42 [facility] [address] [id number] [address] [place] [phone] Dec, Folliculitis L73.9 [facility] [address] [id number] [address] [place], [place] [id number] Dec, Mild intellectual disability F70 ; Unsteady gait R26.81 and Generalized weakness R53.1 [facility] [address] [place] [id number] [address] [place] [address] [id number] 15 Nov, 2017 [facility] [address] [id number] 14 Nov, 2017 [facility] [address] [place] [id number] Nov, Folliculitis L73.9 ; Tinea c orporis B35.4 and Onychomycosis B35.1 [facility] [address] [id number] Oct, [facility] [address] [phone] Oct, Mood disorder F39 [facility] [address] [id number] Oct, [facility] [address] [id number] Oct, Left hip pain M25.552 and Mu scle spasm M62.838 [facility] [id number] [place] [address] [id number] Oct, [facility] [address] [id number] Oct, Other specified mental disor ders 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 ; Anxiety F41.9 ; Onychomycosis B35.1 ; BMI 40.0-44.9, adult Z68.41 and Alkaline phosphatase elevation R74.8 [facility] [address] [place] [id number] [address] [place] [phone] Sep, Mild intellectual disability F70 [facility] [address] [place] [id number] Sep, [facility] [address] [id number] [address] [place] [id number] Sep, Alkaline phosphatase elevati on R74.8 [facility] [address] [id number] [address] [place] [phone] Sep, Alkaline phosphatase elevati on R74.8 [facility] [address] [facility] [id number] [address] [place] [phone] Sep, Mood disorder F39 ; Attentio n deficit hyperactivity disorder (ADHD), predominantly inattentive type F90.0 ; Irritable bowel syndrome with both constipation and diarrhea K58.2 and Seizures R56.9 [place] [address] [id number] [address] [place] [phone] Sep, Mild intellectual disability F70 ; Depression, unspecified depression type F32.9 ; Anxiety F41.9 and BMI 40.0-44.9, adult Z68.41 [place] [address] [facility] [id number] [address] [place] [phone] Sep, [facility] [address] [id number] [address] [place] [phone] Sep, [facility] [address] [facility] [id number] [address] [place] [phone] Sep, [facility] [address] [id number] [address] [place] [phone] Sep, [facility] [address] [id number] [address] [place] [phone] Sep, [facility] [address] [id number] [address] [place] [address] [id number] Aug, Encounter for dental examina tion and cleaning without abnormal findings Z01.20 [facility] [address] [id number] [address] [place] [address] [id number] Aug, Dental examination Z01.20 [facility] [address] [id number] [address] [place] [phone] Aug, [facility] [address] [id number] [address] [place] [phone] Aug, Depression, unspecified depr ession type F32.9 ; Mild intellectual disability F70 and Anxiety F41.9 [facility] [address] [id number] [address] [place] [phone] 08 Aug, 2017 Mood disorder F39 ; Attentio n deficit hyperactivity disorder (ADHD), predominantly inattentive type F90.0 ; Irritable bowel syndrome with both constipation and diarrhea K58.2 and Seizures R56.9 [facility] [address] [id number] [address] [place] [phone] 05 Aug, 2017 Depression, unspecified depr ession type F32.9 ; Mild intellectual disability F70 and Anxiety F41.9 [facility] [address] [id number] [address] [place] [phone] Aug, [facility] [address] [id number] [address] [place] [address] [id number] Jul, Dental examination Z01.20 an d Dental caries K02.9 [facility] [address] [id number] [address] [place] [phone] Jun, Unspecified mood [affective] disorder F39 and 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 [facility] [address] [id number] [address] [place] [address] [id number] May, Encounter for dental examina tion and cleaning without abnormal findings Z01.20 [facility] [address] [id number] [address] [place] [address] [id number] Mar, Dental examination Z01.20 [facility] [address] [id number] [address] [place] [address] [id number] Sep, Dental examination Z01.20 [facility] [address] [id number] [address] [place] [address] [id number] January, Dental examination Z01.20 [facility] [address] [id number] [address] [place] [address] [id number] Dec, Encounter for dental examina tion Z01.20 [facility] [address] [id number] [address] [place] [address] [id number] Dec, Dental examination Z01.20 [facility] [address] [id number] [address] [place] [address] [id number] Nov, Dental examination Z01.20 [facility] [address] [id number] [address] [place] [address] [id number] Jul, Encounter for dental examina tion Z01.20 and Dental examination Z01.20 [facility] [address] [id number] [address] [place] [address] [id number] Apr, Dental examination V72.2 [facility] [address] [id number] [address] [place] [address] [id number] Mar, Dental examination V72.2 [facility] [address] [id number] [address] [place] [phone] January, [facility] [address] [id number] [address] [place] [phone] January, [facility] [address] [id number] [address] [place] [phone] January, [facility] [address] [id number] [address] [place] [phone] January, [facility] [address] [id number] [address] [place] [phone] Jul, IMMUNIZATIONS No Known Immunizations SOCIAL HISTORY [...]
--- OUTSIDE RECORDS SUMMARY | 2020-03-14 17:21 | XMS REPORT ---
Author Author Lata SAMUEL Organization [facility] Address [address] [place] [address] Care Team Providers Care Electric Bath Attendant Name Role Phone JIMMIE YU Unavailable PROBLEMS Type Condition ICD9-CM Code [id number] Code Onset Dates Condition S tatus SNOMED Code Problem Unspecified mood [affective] disorder F39 Active 80355599 Problem Anxiety F41.9 Active 31375885 Problem 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 Active 653626304 Problem Irritable bowel syndrome with both constipation and diarrh ea K58.2 Active 50948487 Problem Attention deficit hyperactiv ity disorder (ADHD), predominantly inattentive type F90.0 Active 50713551 Problem Mood disorder F39 Active 605215 05 Problem Environmental allergies Z91.09 Active 517781432 Problem Postconcussion syndrome F07.81 Active 53419265 Problem Mild intellectual disability F70 A ctive 81343461 Problem Depression, unspecified depression type F32.9 Active 35840302 Problem Unsteady gait R26.81 Active 596289 08 Problem 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 Active 19929415 ALLERGIES No Information ENCOUNTERS Encounter Location Date Diagnosis [facility] [address] [facility] [id number] [address] [place] [id number] Jun, [facility] [address] [facility] [id number] [address] [place] [phone] May, [facility] [address] [facility] [id number] [address] [place] [phone] May, [facility] [address] [facility] [id number] [address] [place] [phone] Apr, Environmental allergies Z91. 09 [facility] [address] [facility] [id number] [address] [place] [phone] Apr, [facility] [address] [id number] [address] [place] [phone] Apr, Nail hypertrophy L60.2 and S elf-care deficit for grooming and hygiene Z74.1 [facility] [address] [id number] [address] [place] [phone] Apr, Environmental allergies Z91. 09 [facility] [address] [id number] [address] [place] [id number] Apr, [facility] [address] [id number] [address] [place] [phone] Apr, [facility] [address] [id number] [address] [place] [phone] Apr, [facility] [address] [facility] [id number] [address] [place] [phone] Apr, Environmental allergies Z91. 09 [facility] [address] [id number] [address] [place] [phone] Apr, [facility] [address] [id number] [address] [place] [id number] Apr, Anxiety F41.9 [facility] [address] [facility] [id number] [address] [place] [phone] Mar, Nail hypertrophy L60.2 and S elf-care deficit for hygiene R46.0 [facility] [address] [id number] [address] [place] [phone] Mar, [facility] [address] [facility] [id number] [address] [place] [phone] Mar, [facility] [address] [facility] [id number] [address] [place] [phone] Mar, Anxiety F41.9 ; Mood disorde r F39 and Dysfunction of both eustachian tubes H69.83 [facility] [address] [facility] [id number] [address] [place] [phone] Mar, Seizures R56.9 [facility] [address] [id number] [address] [place] [phone] Mar, Folliculitis L73.9 [facility] [address] [id number] [address] [place] [phone] Mar, Mild intellectual disability F70 ; Depression, unspecified depression type F32.9 and Anxiety F41.9 [facility] [address] [id number] [address] [place] [phone] Mar, Seizures R56.9 and Folliculi tis L73.9 [facility] [address] [id number] [address] [place] [phone] Feb, [facility] [address] [id number] [address] [place] [phone] Feb, Postconcussion syndrome F07. 81 and Folliculitis L73.9 [facility] [address] [id number] [address] [place] [phone] Feb, Postconcussion syndrome F07. 81 [facility] [address] [id number] [address] [place] [phone] Feb, [facility] [address] [id number] [address] [place] [address] [id number] Feb, [facility] [address] [id number] [address] [place] [address] [id number] Feb, Dental caries extending into dentin K02.62 [facility] [address] [id number] [address] [place] [phone] January, [facility] [address] [id number] [address] [place] [phone] January, [facility] [address] [id number] [address] [place] [phone] January, Onychomycosis B35.1 [facility] [address] [id number] [address] [place] [address] [id number] January, Dental caries extending into dentin K02.62 [facility] [address] [facility] [id number] [address] [place] [id number] Dec, [facility] [address] [facility] [id number] [address] [place] [phone] Dec, [facility] [address] [facility] [id number] [address] [place] [id number] Dec, [facility] [address] [facility] [id number] [place] [phone] Dec, Mild intellectual disability F70 ; Depression, unspecified depression type F32.9 ; Anxiety F41.9 and BMI 45.0-49.9, adult Z68.42 [facility] [address] [facility] [id number] [address] [place] [phone] Dec, Folliculitis L73.9 [facility] [address] [facility] [id number] [address] [place] [phone] Dec, Mild intellectual disability F70 ; Unsteady gait R26.81 and Generalized weakness R53.1 [facility] [address] [place] [id number] [address] [place] [address] [id number] Nov, [facility] [address] [facility] [id number] [address] [place] [phone] Nov, [facility] [address] [facility] [id number] [address] [place] [phone] Nov, Folliculitis L73.9 ; Tinea c orporis B35.4 and Onychomycosis B35.1 [facility] [address] [id number] [address] [place] [address] [id number] Oct, [facility] [address] [facility] [id number] [address] [place] [phone] Oct, Mood disorder F39 [facility] [address] [facility] [id number] [address] [place] [id number] Oct, [facility] [address] [facility] [id number] [address] [place] [id number] Oct, Left hip pain M25.552 and Mu scle spasm M62.838 [facility] [address] [facility] [id number] [address] [place] [address] [id number] Oct, [facility] [address] [place] [id number] [address] [place] [phone] Oct, Other specified mental disor ders 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 ; Anxiety F41.9 ; Onychomycosis B35.1 ; BMI 40.0-44.9, adult Z68.41 and Alkaline phosphatase elevation R74.8 [facility] [address] [place] [id number] [address] [place] [phone] Sep, Mild intellectual disability F70 [facility] [address] [place] [id number] [address] [place] [phone] Sep, [facility] [address] [place] [id number] [address] [place] [address] Sep, Alkaline phosphatase elevati on R74.8 [place] [address] [id number] Sep, Alkaline phosphatase elevati on R74.8 [facility] [address] [place] [id number] [address] [place] [phone] Sep, Mood disorder F39 ; Attentio n deficit hyperactivity disorder (ADHD), predominantly inattentive type F90.0 ; Irritable bowel syndrome with both constipation and diarrhea K58.2 and Seizures R56.9 [facility] [address] [place] [id number] [address] [place] [phone] Sep, Mild intellectual disability F70 ; Depression, unspecified depression type F32.9 ; Anxiety F41.9 and BMI 40.0-44.9, adult Z68.41 [facility] [address] [place] [id number] [address] [place] [phone] Sep, [facility] [address] [id number] [address] [place] [phone] Sep, [facility] [address] [id number] [address] [place] [phone] Sep, [facility] [address] [id number] [address] [place] [phone] Sep, [facility] [address] [id number] [address] [place] [phone] Sep, [facility] [address] [id number] [address] [place] [address] [id number] Aug, Encounter for dental examina tion and cleaning without abnormal findings Z01.20 [facility] [address] [id number] [address] [place] [address] [id number] Aug, Dental examination Z01.20 [facility] [address] [id number] [address] [place] [phone] Aug, [facility] [address] [id number] [address] [place] [phone] Aug, Depression, unspecified depr ession type F32.9 ; Mild intellectual disability F70 and Anxiety F41.9 [facility] [address] [id number] [address] [place] [phone] Aug, Mood disorder F39 ; Attentio n deficit hyperactivity disorder (ADHD), predominantly inattentive type F90.0 ; Irritable bowel syndrome with both constipation and diarrhea K58.2 and Seizures R56.9 [facility] [address] [id number] [address] [place] [phone] Aug, Depression, unspecified depr ession type F32.9 ; Mild intellectual disability F70 and Anxiety F41.9 [facility] [address] [id number] [address] [place] [phone] Aug, [facility] [address] [id number] [address] [place] [address] [id number] Jul, Dental examination Z01.20 an d Dental caries K02.9 [facility] [address] [id number] [address] [place] [phone] Jun, Unspecified mood [affective] disorder F39 and 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 [facility] [address] [id number] [address] [place] [address] [id number] May, Encounter for dental examina tion and cleaning without abnormal findings Z01.20 [facility] [address] [id number] [address] [place] [address] [id number] Mar, Dental examination Z01.20 [facility] [address] [id number] [address] [place] [address] [id number] Sep, Dental examination Z01.20 [facility] [address] [id number] [place] [address] [id number] January, Dental examination Z01.20 [facility] [address] [id number] [place] [address] [id number] Dec, Encounter for dental examina tion Z01.20 [facility] [address] [id number] [address] [place] [address] [id number] Dec, Dental examination Z01.20 [facility] [address] [id number] [address] [place] [address] [id number] Nov, Dental examination Z01.20 [facility] [address] [id number] [address] [place] [address] [id number] Jul, Encounter for dental examina tion Z01.20 and Dental examination Z01.20 [facility] [address] [id number] [address] [place] [address] [id number] Apr, Dental examination V72.2 [facility] [address] [id number] [address] [place] [address] [id number] Mar, Dental examination V72.2 [facility] [address] [id number] [address] [place] [phone] January, [facility] [address] [facility] [id number] [address] [place] [phone] January, [facility] [address] [facility] [id number] [address] [place] [phone] January, [facility] [address] [facility] [id number] [address] [place] [phone] January, [facility] [address] [facility] [id number] [address] [place] [phone] Jul, IMMUNIZATIONS No Known Immunizations SOCIAL HISTORY Never Assessed REASON FOR VISIT Rx change PLAN OF CARE VITAL SIGNS MEDICATIONS Medication Instructions Dosage Frequency Start Date End Date Duration S tatus Ventolin HFA 108 (90 Base) MCG/ACT Inhalation every 6 hrs 2 puffs a s needed 6h Apr, Active RESULTS No Results PROCEDURES No Known [...]
--- OUTSIDE RECORDS SUMMARY | 2020-03-14 17:21 | XMS REPORT ---
Author Author Lata SAMUEL Organization [facility] Address [address] [place] [address] Care Team Providers Care Television Writer Name Role Phone JIMMIE YU Unavailable PROBLEMS Type Condition ICD9-CM Code WPP01-HI Code Onset Dates Condition S tatus SNOMED Code Problem 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 Active 524139075 Problem Depression, unspecified depression type F32.9 Active 61599844 Problem Anxiety F41.9 Active 70630573 Problem Irritable bowel syndrome with both constipation and diarrh ea K58.2 Active 07736817 Problem Attention deficit hyperactiv ity disorder (ADHD), predominantly inattentive type F90.0 Active 86177803 Problem Mood disorder F39 Active 458460 05 Problem Unspecified mood [affective] disorder F39 Active 70559098 Problem Observed sleep apnea G47.30 Active 73262684 Problem Environmental allergies Z91.09 Active 439555258 Problem 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 Active 08151789 Problem Mild intellectual disability F70 A ctive 16303538 Problem Postconcussion syndrome F07.81 Active 59885467 Problem Unsteady gait R26.81 Active 964021 08 ALLERGIES No Information ENCOUNTERS Encounter Location Date Diagnosis [facility] [address] [facility] [id number] [address] [place] [phone] Jul, [facility] [address] [facility] [id number] [address] [place] [phone] Jun, [facility] [address] [facility] [id number] [address] [place] [phone] Jun, [facility] [address] [facility] [id number] [address] [place] [phone] Jun, [facility] [address] [facility] [id number] [address] [place] [phone] Jun, BMI 45.0-49.9, adult Z68.42 ; Nail hypertrophy L60.2 and Self-care deficit for hygiene R46.0 [facility] [address] [place] [id number] [place] [phone] Jun, [facility] [address] [address] Jun, Encounter for immunization Z 23 [facility] [address] [place] [id number] [place] [phone] May, Sebaceous cyst L72.3 and Obs erved sleep apnea G47.30 [place] [address] [place] [id number] [place] [phone] May, [place] [address] [address] Apr, Environmental allergies Z91. 09 [facility] [address] [place] [id number] [place] [phone] Apr, [facility] [address] [place] [id number] [place] [phone] Apr, Nail hypertrophy L60.2 and S elf-care deficit for grooming and hygiene Z74.1 [place] [id number] [place] [phone] Apr, Environmental allergies Z91. 09 [facility] [address] [place] [id number] [place] [phone] Apr, [facility] [address] [place] [id number] [place] [phone] Apr, [facility] [address] [place] [id number] [place] [phone] Apr, [facility] [address] [place] [id number] [place] [phone] Apr, Environmental allergies Z91. 09 [facility] [address] [place] [id number] [address] [place] [phone] Apr, [facility] [address] [place] [id number] [place] [phone] Apr, Anxiety F41.9 [facility] [address] [place] [id number] [place] [phone] Mar, Nail hypertrophy L60.2 and S elf-care deficit for hygiene R46.0 [facility] [address] [place] [id number] [place] [phone] Mar, [facility] [address] [place] [id number] [place] [phone] Mar, [facility] [address] [phone] Mar, Anxiety F41.9 ; Mood disorde r F39 and Dysfunction of both eustachian tubes H69.83 [place] [address] [phone] Mar, Seizures R56.9 [place] [address] [phone] Mar, Folliculitis L73.9 [place] [address] [phone] Mar, Mild intellectual disability F70 ; Depression, unspecified depression type F32.9 and Anxiety F41.9 [facility] [address] [place] [id number] [address] [place] [phone] Mar, Seizures R56.9 and Folliculi tis L73.9 [facility] [address] [place] [id number] [place] [phone] Feb, [facility] [address] [place] [id number] [place] [phone] Feb, Postconcussion syndrome F07. 81 and Folliculitis L73.9 [place] [address] [place] [id number] [place] [phone] Feb, Postconcussion syndrome F07. 81 [facility] [address] [id number] [address] [place] [phone] Feb, [facility] [address] [id number] [address] [place] [address] [phone] Feb, [facility] [address] [id number] [address] [place] [address] [phone] Feb, Dental caries extending into dentin K02.62 [facility] [address] [id number] [address] [place] [phone] January, [facility] [address] [id number] [address] [place] [phone] January, [facility] [address] [id number] [address] [place] [phone] January, Onychomycosis B35.1 [facility] [address] [id number] [address] [place] [address] [phone] January, Dental caries extending into dentin K02.62 [facility] [address] [id number] [address] [place] [phone] Dec, [facility] [address] [id number] [address] [place] [phone] Dec, [facility] [address] [id number] [address] [place] [phone] Dec, [facility] [address] [id number] [address] [place] [phone] Dec, Mild intellectual disability F70 ; Depression, unspecified depression type F32.9 ; Anxiety F41.9 and BMI 45.0-49.9, adult Z68.42 [facility] [address] [id number] [address] [place] [phone] Dec, Folliculitis L73.9 [facility] [address] [id number] [address] [place], [place] [phone] Dec, Mild intellectual disability F70 ; Unsteady gait R26.81 and Generalized weakness R53.1 [facility] [address] [place] [id number] [address] [place] [address] [id number] Nov, 2017 [facility] [address] [phone] 14 Nov, 2017 [facility] [address] [place] [id number] Nov, Folliculitis L73.9 ; Tinea c orporis B35.4 and Onychomycosis B35.1 [facility] [address] [id number] Oct, [facility] [address] [id number] Oct, Mood disorder F39 [facility] [address] [id number] Oct, [facility] [address] [id number] Oct, Left hip pain M25.552 and Mu scle spasm M62.838 [facility] [id number] [place] [address] [id number] Oct, [facility] [address] [phone] Oct, Other specified mental disor ders 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 ; Anxiety F41.9 ; Onychomycosis B35.1 ; BMI 40.0-44.9, adult Z68.41 and Alkaline phosphatase elevation R74.8 [facility] [address] [place] [id number] [address] [place] [phone] Sep, Mild intellectual disability F70 [facility] [address] [place] [id number] Sep, [facility] [address] [id number] [address] [place] [phone] Sep, Alkaline phosphatase elevati on R74.8 [facility] [address] [id number] [address] [place] [phone] Sep, Alkaline phosphatase elevati on R74.8 [facility] [address] [facility] [id number] [address] [place] [phone] Sep, Mood disorder F39 ; Attentio n deficit hyperactivity disorder (ADHD), predominantly inattentive type F90.0 ; Irritable bowel syndrome with both constipation and diarrhea K58.2 and Seizures R56.9 [facility] [facility] [address] [id number] [address] [place] [phone] Sep, Mild intellectual disability F70 ; Depression, unspecified depression type F32.9 ; Anxiety F41.9 and BMI 40.0-44.9, adult Z68.41 [place] [address] [facility] [id number] [address] [place] [phone] Sep, [facility] [address] [id number] [address] [place] [phone] Sep, [facility] [address] [facility] [id number] [address] [place] [phone] Sep, [facility] [address] [id number] [address] [place] [phone] Sep, [facility] [address] [id number] [address] [place] [phone] Sep, [facility] [address] [id number] [address] [place] [address] [id number] Aug, Encounter for dental examina tion and cleaning without abnormal findings Z01.20 [facility] [address] [id number] [address] [place] [address] [id number] Aug, Dental examination Z01.20 [facility] [address] [id number] [address] [place] [phone] Aug, [facility] [address] [id number] [address] [place] [phone] Aug, Depression, unspecified depr ession type F32.9 ; Mild intellectual disability F70 and Anxiety F41.9 [facility] [address] [id number] [address] [place] [phone] 08 Aug, 2017 Mood disorder F39 ; Attentio n deficit hyperactivity disorder (ADHD), predominantly inattentive type F90.0 ; Irritable bowel syndrome with both constipation and diarrhea K58.2 and Seizures R56.9 [facility] [address] [id number] [address] [place] [phone] 05 Aug, 2017 Depression, unspecified depr ession type F32.9 ; Mild intellectual disability F70 and Anxiety F41.9 [facility] [address] [id number] [address] [place] [phone] Aug, [facility] [address] [id number] [address] [place] [address] [id number] Jul, Dental examination Z01.20 an d Dental caries K02.9 [facility] [address] [id number] [address] [place] [phone] Jun, Unspecified mood [affective] disorder F39 and 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 [facility] [address] [id number] [address] [place] [address] [phone] May, Encounter for dental examina tion and cleaning without abnormal findings Z01.20 [facility] [address] [id number] [address] [place] [address] [id number] Mar, Dental examination Z01.20 [facility] [address] [id number] [address] [place] [address] [id number] Sep, Dental examination Z01.20 [facility] [address] [id number] [address] [place] [address] [id number] January, Dental examination Z01.20 [facility] [address] [id number] [address] [place] [address] [id number] Dec, Encounter for dental examina tion Z01.20 [facility] [address] [id number] [address] [place] [address] [id number] Dec, Dental examination Z01.20 [facility] [address] [id number] [address] [place] [address] [id number] Nov, Dental examination Z01.20 [facility] [address] [id number] [address] [place] [address] [id number] Jul, Encounter for dental examina tion Z01.20 and Dental examination Z01.20 [facility] [address] [id number] [address] [place] [address] [id number] Apr, Dental examination V72.2 [facility] [address] [id number] [address] [place] [address] [id number] Mar, Dental examination V72.2 [facility] [address] [id number] [address] [place] [phone] January, [facility] [address] [id number] [address] [place] [phone] January, [facility] [address] [id number] [address] [place] [phone] January, [facility] [address] [id number] [address] [place] [phone] January, [facility] [address] [facility] [id number] [address] [place] [phone] Jul, IMMUNIZATIONS No Known Immunizations SOCIAL HISTORY Never Assessed REASON FOR VISIT Refill request PLAN OF CARE VITAL SIGNS MEDICATIONS Medication Instructions Dosage Frequency Start Date End Date Duration S tatus Nystatin 464351 unit/gm Externally Twice a day 1 application to affected area 12h Jun, Active RESULTS No Results PROCEDURES No Known [...] in 2005 2005 and before Hospitalization History [facility] 05/2018
--- OUTSIDE RECORDS SUMMARY | 2020-03-14 17:21 | XMS REPORT ---
Author Author Lata SAMUEL Organization [facility] Address [address] [place] [address] Care Team Providers Care Title Clerk Automobile Name Role Phone YU SAMUEL Unavailable PROBLEMS Type Condition ICD9-CM Code PVU09-XS Code Onset Dates Condition S tatus SNOMED Code Problem 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 Active 637797637 Problem Depression, unspecified depression type F32.9 Active 46302337 Problem Anxiety F41.9 Active 07844433 Problem Irritable bowel syndrome with both constipation and diarrh ea K58.2 Active 13864184 Problem Attention deficit hyperactiv ity disorder (ADHD), predominantly inattentive type F90.0 Active 35046388 Problem Mood disorder F39 Active 173478 05 Problem Unspecified mood [affective] disorder F39 Active 91493791 Problem Observed sleep apnea G47.30 Active 96450260 Problem Environmental allergies Z91.09 Active 076717629 Problem 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 Active 65683672 Problem Mild intellectual disability F70 A ctive 44266485 Problem Postconcussion syndrome F07.81 Active 23415981 Problem Unsteady gait R26.81 Active 893345 08 ALLERGIES No Information ENCOUNTERS Encounter Location Date Diagnosis [facility] [address] [facility] [id number] [address] [place] [phone] Jul, [facility] [address] [facility] [id number] [address] [place] [phone] Jul, [facility] [address] [facility] [id number] [address] [place] [phone] Jun, [facility] [address] [facility] [id number] [address] [place] [phone] Jun, [facility] [address] [facility] [id number] [address] [place] [phone] Jun, [facility] [address] [facility] [id number] [address] [place] [id number] 16 Jun, 2018 BMI 45.0-49.9, adult Z68.42 ; Nail hypertrophy L60.2 and Self-care deficit for hygiene R46.0 [facility] [address] [place] [id number] [place] [phone] Jun, [facility] [address] [id number] [place] [phone] Jun, Encounter for immunization Z [address] [place] [address] [id number] [place] [phone] May, Sebaceous cyst L72.3 and Obs erved sleep apnea G47.30 [place] [address] [place] [id number] [place] [phone] May, [facility] [address] [id number] [place] [phone] Apr, Environmental allergies Z91. 09 [facility] [address] [id number] [place] [phone] Apr, [facility] [address] [id number] [place] [phone] Apr, Nail hypertrophy L60.2 and S elf-care deficit for grooming and hygiene Z74.1 [facility] [address] [facility] [id number] [address] [place] [id number] Apr, Environmental allergies Z91. 09 [facility] [address] [facility] [id number] [address] [place] [phone] Apr, [facility] [address] [place] [id number] [place] [phone] Apr, [facility] [address] [place] [id number] [place] [phone] Apr, [facility] [address] [place] [id number] [place] [phone] Apr, Environmental allergies Z91. 09 [facility] [address] [phone] Apr, [facility] [address] [place] [id number] [place] [phone] Apr, Anxiety F41.9 [facility] [address] [id number] [place] [id number] Mar, Nail hypertrophy L60.2 and S elf-care deficit for hygiene R46.0 [facility] [address] [phone] Mar, [facility] [address] [id number] [place] [phone] Mar, [facility] [address] [id number] Mar, Anxiety F41.9 ; Mood disorde r F39 and Dysfunction of both eustachian tubes H69.83 [place] [address] [phone] Mar, Seizures R56.9 [place] [address] [place] [id number] [place] [phone] Mar, Folliculitis L73.9 [facility] [address] [id number] [place] [phone] Mar, Mild intellectual disability F70 ; Depression, unspecified depression type F32.9 and Anxiety F41.9 [facility] [address] [place] [id number] [place] [id number] Mar, Seizures R56.9 and Folliculi tis L73.9 [facility] [address] [place] [id number] [place] [phone] Feb, [facility] [address] [id number] Feb, Postconcussion syndrome F07. 81 and Folliculitis L73.9 [facility] [address] [id number] [address] [place] [phone] Feb, Postconcussion syndrome F07. 81 [facility] [address] [id number] [address] [place] [phone] Feb, [facility] [address] [id number] [address] [place] [phone] Feb, [facility] [address] [id number] [address] [place] [address] [id number] Feb, Dental caries extending into dentin K02.62 [facility] [address] [id number] [address] [place] [phone] January, [facility] [address] [id number] [address] [place] [id number] January, [facility] [address] [id number] [address] [place] [phone] January, Onychomycosis B35.1 [facility] [address] [id number] [address] [place] [address] [phone] January, Dental caries extending into dentin K02.62 [facility] [address] [id number] [address] [place] [phone] Dec, [facility] [address] [id number] [address] [place] [phone] Dec, [facility] [address] [id number] [address] [place] [phone] Dec, [facility] [address] [id number] [address] [place] [phone] Dec, Mild intellectual disability F70 ; Depression, unspecified depression type F32.9 ; Anxiety F41.9 and BMI 45.0-49.9, adult Z68.42 [facility] [address] [id number] [address] [place] [phone] Dec, Folliculitis L73.9 [facility] [address] [id number] [place] [phone] Dec, Mild intellectual disability F70 ; Unsteady gait R26.81 and Generalized weakness R53.1 [facility] [address] [id number] [place] [address] [id number] Nov, [facility] [address] [phone] Nov, [facility] [address] [id number] [place] [phone] Nov, Folliculitis L73.9 ; Tinea c orporis B35.4 and Onychomycosis B35.1 [facility] [id number] [place] [address] [phone] Oct, [facility] [address] [id number] Oct, Mood disorder F39 [facility] [address] [id number] Oct, [facility] [address] [address] Oct, Left hip pain M25.552 and Mu scle spasm M62.838 [facility] [address] [place] [address] [id number] Oct, [facility] [address] [place] [id number] [place] [phone] Oct, Other specified mental disor ders 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 ; Anxiety F41.9 ; Onychomycosis B35.1 ; BMI 40.0-44.9, adult Z68.41 and Alkaline phosphatase elevation R74.8 [facility] [address] [place] [id number] [place] [phone] Sep, Mild intellectual disability F70 [facility] [address] [id number] [address] [place] [id number] Sep, [facility] [address] [id number] [address] [place] [id number] Sep, Alkaline phosphatase elevati on R74.8 [facility] [address] [facility] [id number] [address] [place] [id number] Sep, Alkaline phosphatase elevati on R74.8 [facility] [address] [id number] [address] [place] [id number] Sep, Mood disorder F39 ; Attentio n deficit hyperactivity disorder (ADHD), predominantly inattentive type F90.0 ; Irritable bowel syndrome with both constipation and diarrhea K58.2 and Seizures R56.9 [place] [address] [facility] [id number] [address] [place] [id number] Sep, Mild intellectual disability F70 ; Depression, unspecified depression type F32.9 ; Anxiety F41.9 and BMI 40.0-44.9, adult Z68.41 [facility] [address] [id number] [address] [place] [id number] Sep, [facility] [address] [id number] [address] [place] [phone] Sep, [facility] [address] [id number] [address] [place] [id number] Sep, [facility] [address] [id number] [address] [place] [phone] Sep, [facility] [address] [id number] [address] [place] [phone] Sep, [facility] [address] [id number] [address] [place] [address] [id number] Aug, Encounter for dental examina tion and cleaning without abnormal findings Z01.20 [facility] [address] [id number] [address] [place] [address] [id number] Aug, Dental examination Z01.20 [facility] [address] [id number] [address] [place] [id number] Aug, [facility] [address] [id number] [address] [place] [phone] Aug, Depression, unspecified depr ession type F32.9 ; Mild intellectual disability F70 and Anxiety F41.9 [facility] [address] [facility] [id number] [address] [place] [id number] 08 Aug, 2017 Mood disorder F39 ; Attentio n deficit hyperactivity disorder (ADHD), predominantly inattentive type F90.0 ; Irritable bowel syndrome with both constipation and diarrhea K58.2 and Seizures R56.9 [place] [address] [id number] [address] [place] [phone] 05 Aug, 2017 Depression, unspecified depr ession type F32.9 ; Mild intellectual disability F70 and Anxiety F41.9 [place] [address] [id number] [address] [place] [id number] Aug, [facility] [address] [id number] [place] [address] [id number] Jul, Dental examination Z01.20 an d Dental caries K02.9 [facility] [address] [id number] [address] [place] [id number] Jun, Unspecified mood [affective] disorder F39 and 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 [facility] [address] [id number] [address] [place] [address] [id number] May, Encounter for dental examina tion and cleaning without abnormal findings Z01.20 [facility] [address] [id number] [address] [place] [address] [id number] Mar, Dental examination Z01.20 [facility] [address] [id number] [address] [place] [address] [id number] Sep, Dental examination Z01.20 [facility] [address] [id number] [address] [place] [address] [id number] January, Dental examination Z01.20 [facility] [address] [id number] [address] [place] [address] [id number] Dec, Encounter for dental examina tion Z01.20 [facility] [address] [id number] [address] [place] [address] [id number] Dec, Dental examination Z01.20 [facility] [address] [id number] [address] [place] [address] [id number] Nov, Dental examination Z01.20 [facility] [address] [id number] [address] [place] [address] [id number] Jul, Encounter for dental examina tion Z01.20 and Dental examination Z01.20 [facility] [address] [id number] [address] [place] [address] [id number] Apr, Dental examination V72.2 [facility] [address] [id number] [address] [place] [address] [id number] Mar, Dental examination V72.2 [facility] [address] [id number] [address] [place] [phone] January, [facility] [address] [id number] [address] [place] [phone] January, [facility] [address] [id number] [address] [place] [phone] January, [facility] [address] [id number] [address] [place] [phone] January, [facility] [address] [id number] [address] [place] [phone] Jul, IMMUNIZATIONS No Known Immunizations SOCIAL HISTORY [...] in 2005 2005 and before Hospitalization History [facility] 05/2018
--- OUTSIDE RECORDS SUMMARY | 2020-03-14 17:21 | XMS REPORT ---
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 Active 563259295 Problem Depression, unspecified depression type F32.9 Active 81856506 Problem Anxiety F41.9 Active 45413138 Problem Irritable bowel syndrome with both constipation and diarrh ea K58.2 Active 11340333 Problem Attention deficit hyperactiv ity disorder (ADHD), predominantly inattentive type F90.0 Active 30013065 Problem Mood disorder F39 Active 297954 05 Problem Unspecified mood [affective] disorder F39 Active 84375971 Problem Observed sleep apnea G47.30 Active 29840543 Problem Environmental allergies Z91.09 Active 127623740 Problem 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 Active 00895014 Problem Mild intellectual disability F70 A ctive 03394759 Problem Postconcussion syndrome F07.81 Active 14229924 Problem Unsteady gait R26.81 Active 673401 08 ALLERGIES No Information ENCOUNTERS Encounter Location Date Diagnosis [facility] [address] [facility] [id number] [address] [place] [phone] Jul, [facility] [address] [facility] [id number] [address] [place] [phone] Jul, [facility] [address] [facility] [id number] [address] [place] [phone] Jul, [facility] [address] [facility] [id number] [address] [place] [phone] Jun, [facility] [address] [facility] [id number] [address] [place] [phone] Jun, [facility] [address] [facility] [id number] [address] [place] [phone] Jun, [facility] [address] [facility] [id number] [place] [phone] Jun, BMI 45.0-49.9, adult Z68.42 ; Nail hypertrophy L60.2 and Self-care deficit for hygiene R46.0 [facility] [address] [facility] [id number] [address] [place] [phone] Jun, [facility] [address] [facility] [id number] [place] [phone] Jun, Encounter for immunization Z 23 [facility] [address] [facility] [id number] [place] [phone] 28 May, 2018 Sebaceous cyst L72.3 and Obs erved sleep apnea G47.30 [facility] [address] [place] [id number] [address] [place] [phone] May, [facility] [address] [facility] [id number] [address] [place] [phone] Apr, Environmental allergies Z91. 09 [facility] [address] [facility] [id number] [address] [place] [phone] Apr, [facility] [address] [facility] [id number] [address] [place] [phone] Apr, Nail hypertrophy L60.2 and S elf-care deficit for grooming and hygiene Z74.1 [facility] [address] [facility] [id number] [address] [place] [phone] Apr, Environmental allergies Z91. 09 [facility] [address] [facility] [id number] [address] [place] [phone] Apr, [facility] [address] [facility] [id number] [address] [place] [phone] Apr, [facility] [address] [place] [id number] [address] [place] [phone] Apr, [facility] [address] [id number] Apr, Environmental allergies Z91. 09 [facility] [address] [place] [id number] [place] [phone] Apr, [facility] [address] [address] Apr, Anxiety F41.9 [place] [address] [address] Mar, Nail hypertrophy L60.2 and S elf-care deficit for hygiene R46.0 [place] [address] [address] Mar, [place] [address] [address] Mar, [facility] [address] [address] Mar, Anxiety F41.9 ; Mood disorde r F39 and Dysfunction of both eustachian tubes H69.83 [place] [address] [address] Mar, Seizures R56.9 [place] [address] [address] Mar, Folliculitis L73.9 [place] [address] [address] Mar, Mild intellectual disability F70 ; Depression, unspecified depression type F32.9 and Anxiety F41.9 [place] [address] [place] [id number] [place] [phone] Mar, Seizures R56.9 and Folliculi tis L73.9 [place] [address] [address] Feb, [facility] [address] [id number] [address] [place] [address] Feb, Postconcussion syndrome F07. 81 and Folliculitis L73.9 [facility] [address] [id number] [address] [place] [phone] Feb, Postconcussion syndrome F07. 81 [facility] [address] [id number] [address] [place] [phone] Feb, [facility] [address] [id number] [address] [place] [address] [id number] Feb, [facility] [address] [id number] [address] [place] [address] [id number] Feb, Dental caries extending into dentin K02.62 [facility] [address] [id number] [address] [place] [phone] January, [facility] [address] [id number] [address] [place] [phone] January, [facility] [address] [id number] [address] [place] [address] January, Onychomycosis B35.1 [facility] [address] [id number] [address] [place] [address] [id number] January, Dental caries extending into dentin K02.62 [facility] [address] [id number] [address] [place] [phone] Dec, [facility] [address] [id number] [address] [place] [phone] Dec, [facility] [address] [id number] [address] [place] [phone] Dec, [facility] [address] [id number] [address] [place] [address] Dec, Mild intellectual disability F70 ; Depression, unspecified depression type F32.9 ; Anxiety F41.9 and BMI 45.0-49.9, adult Z68.42 [facility] [address] [address] Dec, Folliculitis L73.9 [facility] [address] [place] [id number] [place] [phone] Dec, Mild intellectual disability F70 ; Unsteady gait R26.81 and Generalized weakness R53.1 [facility] [address] [place] [id number] [place] [address] [id number] 15 Nov, 2017 [facility] [address] [phone] Nov, [facility] [address] [place] [id number] [place] [phone] Nov, Folliculitis L73.9 ; Tinea c orporis B35.4 and Onychomycosis B35.1 [facility] [id number] [place] [id number] Oct, [facility] [address] [phone] Oct, Mood disorder F39 [facility] [address] [address] Oct, [facility] [address] [address] Oct, Left hip pain M25.552 and Mu scle spasm M62.838 [facility] [address] [place] [id number] [address] [place] [address] [id number] Oct, [facility] [address] [phone] Oct, Other specified mental disor ders 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 ; Anxiety F41.9 ; Onychomycosis B35.1 ; BMI 40.0-44.9, adult Z68.41 and Alkaline phosphatase elevation R74.8 [place] [id number] [facility] [id number] [address] [place] [phone] Sep, Mild intellectual disability F70 [facility] [address] [facility] [id number] [address] [place] [phone] Sep, [facility] [address] [facility] [id number] [address] [place] [phone] Sep, Alkaline phosphatase elevati on R74.8 [facility] [address] [facility] [id number] [address] [place] [phone] Sep, Alkaline phosphatase elevati on R74.8 [facility] [address] [facility] [id number] [address] [place] [phone] Sep, Mood disorder F39 ; Attentio n deficit hyperactivity disorder (ADHD), predominantly inattentive type F90.0 ; Irritable bowel syndrome with both constipation and diarrhea K58.2 and Seizures R56.9 [place] [address] [facility] [id number] [address] [place] [phone] Sep, Mild intellectual disability F70 ; Depression, unspecified depression type F32.9 ; Anxiety F41.9 and BMI 40.0-44.9, adult Z68.41 [facility] [address] [facility] [id number] [address] [place] [phone] Sep, [facility] [address] [facility] [id number] [address] [place] [phone] Sep, [facility] [address] [facility] [id number] [address] [place] [phone] Sep, [facility] [address] [facility] [id number] [address] [place] [phone] Sep, [facility] [address] [facility] [id number] [address] [place] [phone] Sep, [facility] [address] [id number] [address] [place] [address] [id number] Aug, Encounter for dental examina tion and cleaning without abnormal findings Z01.20 [facility] [address] [id number] [address] [place] [address] [id number] Aug, Dental examination Z01.20 [facility] [address] [id number] [address] [place] [phone] Aug, [facility] [address] [id number] [address] [place] [phone] Aug, Depression, unspecified depr ession type F32.9 ; Mild intellectual disability F70 and Anxiety F41.9 [facility] [address] [id number] [address] [place] [phone] 08 Aug, 2017 Mood disorder F39 ; Attentio n deficit hyperactivity disorder (ADHD), predominantly inattentive type F90.0 ; Irritable bowel syndrome with both constipation and diarrhea K58.2 and Seizures R56.9 [facility] [address] [id number] [address] [place] [phone] 05 Aug, 2017 Depression, unspecified depr ession type F32.9 ; Mild intellectual disability F70 and Anxiety F41.9 [facility] [address] [id number] [address] [place] [phone] 04 Aug, 2017 [facility] [address] [id number] [address] [place] [address] [id number] Jul, Dental examination Z01.20 an d Dental caries K02.9 [facility] [address] [id number] [address] [place] [phone] Jun, Unspecified mood [affective] disorder F39 and 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 [facility] [address] [id number] [address] [place] [address] [id number] May, Encounter for dental examina tion and cleaning without abnormal findings Z01.20 [facility] [address] [id number] [address] [place] [address] [id number] Mar, Dental examination Z01.20 [facility] [address] [id number] [address] [place] [address] [id number] Sep, Dental examination Z01.20 [facility] [address] [id number] [address] [place] [address] [id number] January, Dental examination Z01.20 [facility] [address] [id number] [address] [place] [address] [id number] Dec, Encounter for dental examina tion Z01.20 [facility] [address] [id number] [address] [place] [address] [id number] Dec, Dental examination Z01.20 [facility] [address] [id number] [address] [place] [address] [id number] Nov, Dental examination Z01.20 [facility] [address] [id number] [address] [place] [address] [id number] Jul, Encounter for dental examina tion Z01.20 and Dental examination Z01.20 [facility] [address] [id number] [address] [place] [address] [id number] Apr, Dental examination V72.2 [facility] [address] [id number] [address] [place] [address] [id number] Mar, Dental examination V72.2 [facility] [address] [id number] [address] [place] [phone] January, [facility] [address] [id number] [address] [place] [phone] January, [facility] [address] [id number] [address] [place] [phone] January, [facility] [address] [id number] [address] [place] [phone] January, [facility] [address] [facility] [id number] [address] [place] [phone] Jul, IMMUNIZATIONS No Known Immunizations SOCIAL HISTORY Never Assessed REASON FOR VISIT arm swelling PLAN OF CARE VITAL SIGNS MEDICATIONS Unknown [...] in 2005 2005 and before Hospitalization History [facility] 05/2018
--- OUTSIDE RECORDS SUMMARY | 2020-03-14 17:21 | XMS REPORT ---
Author Author Lata SAMUEL Organization [facility] [place] Address [address] [place] [address] Care Team Providers Care Distribution Accounting Clerk Name Role Phone YU SAMUEL Unavailable PROBLEMS Type Condition ICD9-CM Code XIX95-UL Code Onset Dates Condition S tatus SNOMED Code Problem 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 Active 469190004 Problem Depression, unspecified depression type F32.9 Active 59603702 Problem Anxiety F41.9 Active 35786110 Problem Irritable bowel syndrome with both constipation and diarrh ea K58.2 Active 46086959 Problem Attention deficit hyperactiv ity disorder (ADHD), predominantly inattentive type F90.0 Active 26859190 Problem Mood disorder F39 Active 509873 05 Problem Unspecified mood [affective] disorder F39 Active 13044120 Problem Observed sleep apnea G47.30 Active 21034522 Problem Environmental allergies Z91.09 Active 372739347 Problem 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 Active 47482284 Problem Mild intellectual disability F70 A ctive 53647121 Problem Postconcussion syndrome F07.81 Active 01812243 Problem Unsteady gait R26.81 Active 920418 08 ALLERGIES No Information ENCOUNTERS Encounter Location Date Diagnosis [facility] [place] [address] [id number] [address] [place] [phone] Jun, [facility] [address] [facility] [id number] [address] [place] [address] [id number] Jun, [facility] [place] [address] [id number] [address] [place] [phone] Jun, [facility] [place] [address] [facility] [id number] [address] [place] [phone] 28 May, 2018 Observed sleep apnea G47.30 and Head lump R22.0 [facility] [place] [address] [id number] [address] [place] [phone] May, [facility] [place] [address] [id number] [address] [place] [phone] Apr, Environmental allergies Z91. 09 [facility] [place] [address] [id number] [address] [place] [phone] Apr, [facility] [place] [address] [id number] [address] [place] [phone] Apr, Nail hypertrophy L60.2 and S elf-care deficit for grooming and hygiene Z74.1 [facility] [place] [address] [id number] [address] [place] [phone] Apr, Environmental allergies Z91. 09 [facility] [place] [address] [facility] [id number] [address] [place] [phone] Apr, [facility] [place] [address] [id number] [address] [place] [phone] Apr, [facility] [place] [address] [facility] [id number] [address] [place] [phone] Apr, [facility] [place] [address] [facility] [id number] [address] [place] [phone] Apr, Environmental allergies Z91. 09 [facility] [place] [address] [facility] [id number] [address] [place] [phone] Apr, [facility] [place] [address] [facility] [id number] [address] [place] [phone] Apr, Anxiety F41.9 [facility] [place] [address] [id number] [address] [place] [phone] Mar, Nail hypertrophy L60.2 and S elf-care deficit for hygiene R46.0 [facility] [place] [address] [id number] [address] [place] [phone] Mar, [facility] [place] [address] [id number] [address] [place] [phone] Mar, [facility] [place] [address] [id number] [address] [place] [phone] Mar, Anxiety F41.9 ; Mood disorde r F39 and Dysfunction of both eustachian tubes H69.83 [facility] [place] [address] [id number] [address] [place] [phone] Mar, Seizures R56.9 [facility] [place] [address] [id number] [address] [place] [phone] Mar, Folliculitis L73.9 [facility] [place] [address] [facility] [id number] [address] [place] [phone] Mar, Mild intellectual disability F70 ; Depression, unspecified depression type F32.9 and Anxiety F41.9 [facility] [place] [address] [id number] [address] [place] [phone] Mar, Seizures R56.9 and Folliculi tis L73.9 [facility] [place] [address] [id number] [address] [place] [phone] Feb, [facility] [place] [address] [id number] [address] [place] [phone] Feb, Postconcussion syndrome F07. 81 and Folliculitis L73.9 [facility] [place] [address] [id number] [address] [place] [phone] Feb, Postconcussion syndrome F07. 81 [facility] [place] [address] [id number] [address] [place] [phone] Feb, [facility] [address] [id number] [address] [place] [address] [id number] Feb, [facility] [address] [id number] [address] [place] [address] [id number] Feb, Dental caries extending into dentin K02.62 [facility] [place] [address] [id number] [address] [place] [phone] January, [facility] [place] [address] [id number] [address] [place] [phone] January, [facility] [place] [address] [facility] [id number] [address] [place] [phone] January, Onychomycosis B35.1 [facility] [address] [id number] [address] [place] [address] [id number] January, Dental caries extending into dentin K02.62 [facility] [place] [address] [id number] [address] [place] [phone] Dec, [facility] [place] [address] [id number] [address] [place] [phone] Dec, [facility] [place] [address] [id number] [address] [place] [phone] Dec, [facility] [place] [address] [facility] [id number] [address] [place] [phone] Dec, Mild intellectual disability F70 ; Depression, unspecified depression type F32.9 ; Anxiety F41.9 and BMI 45.0-49.9, adult Z68.42 [facility] [place] [address] [facility] [id number] [address] [place] [phone] Dec, Folliculitis L73.9 [facility] [place] [address] [facility] [id number] [address] [place] [phone] Dec, Mild intellectual disability F70 ; Unsteady gait R26.81 and Generalized weakness R53.1 [facility] [address] [id number] [address] [place] [address] [id number] Nov, [facility] [place] [address] [id number] [address] [place] [phone] Nov, [facility] [place] [address] [facility] [id number] [address] [place] [phone] Nov, Folliculitis L73.9 ; Tinea c orporis B35.4 and Onychomycosis B35.1 [facility] [address] [id number] [address] [place] [address] [id number] Oct, [facility] [place] [address] [facility] [id number] [address] [place] [phone] Oct, Mood disorder F39 [facility] [place] [address] [facility] [id number] [address] [place] [phone] Oct, [facility] [address] [facility] [id number] [address] [place] [phone] Oct, Left hip pain M25.552 and Mu scle spasm M62.838 [facility] [address] [id number] [address] [place] [address] [id number] Oct, [facility] [place] [address] [facility] [id number] [address] [place] [phone] Oct, Other specified mental disor ders 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 ; Anxiety F41.9 ; Onychomycosis B35.1 ; BMI 40.0-44.9, adult Z68.41 and Alkaline phosphatase elevation R74.8 [facility] [place] [address] [facility] [id number] [address] [place] [phone] Sep, Mild intellectual disability F70 [facility] [place] [address] [id number] [address] [place] [phone] Sep, [facility] [place] [address] [facility] [id number] [address] [place] [phone] Sep, Alkaline phosphatase elevati on R74.8 [facility] [place] [address] [facility] [id number] [address] [place] [phone] Sep, Alkaline phosphatase elevati on R74.8 [facility] [place] [address] [facility] [id number] [address] [place] [phone] Sep, Mood disorder F39 ; Attentio n deficit hyperactivity disorder (ADHD), predominantly inattentive type F90.0 ; Irritable bowel syndrome with both constipation and diarrhea K58.2 and Seizures R56.9 [facility] [place] [address] [id number] [address] [place] [phone] Sep, Mild intellectual disability F70 ; Depression, unspecified depression type F32.9 ; Anxiety F41.9 and BMI 40.0-44.9, adult Z68.41 [facility] [place] [address] [id number] [address] [place] [phone] Sep, [facility] [place] [address] [id number] [address] [place] [phone] Sep, [facility] [place] [address] [id number] [address] [place] [phone] Sep, [facility] [place] [address] [id number] [address] [place] [phone] Sep, [facility] [place] [address] [id number] [address] [place] [phone] Sep, [facility] [address] [id number] [place] [address] [id number] Aug, Encounter for dental examina tion and cleaning without abnormal findings Z01.20 [facility] [address] [id number] [place] [address] [id number] Aug, Dental examination Z01.20 [facility] [place] [address] [id number] [address] [place] [phone] 14 Aug, 2017 [facility] [place] [address] [id number] [address] [place] [phone] Aug, Depression, unspecified depr ession type F32.9 ; Mild intellectual disability F70 and Anxiety F41.9 [facility] [place] [address] [id number] [address] [place] [phone] Aug, Mood disorder F39 ; Attentio n deficit hyperactivity disorder (ADHD), predominantly inattentive type F90.0 ; Irritable bowel syndrome with both constipation and diarrhea K58.2 and Seizures R56.9 [facility] [place] [address] [id number] [address] [place] [phone] Aug, Depression, unspecified depr ession type F32.9 ; Mild intellectual disability F70 and Anxiety F41.9 [facility] [place] [address] [id number] [address] [place] [phone] Aug, [facility] [address] [id number] [address] [place] [address] [id number] Jul, Dental examination Z01.20 an d Dental caries K02.9 [facility] [place] [address] [id number] [address] [place] [phone] Jun, Unspecified mood [affective] disorder F39 and 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 [facility] [address] [id number] [place] [address] [id number] May, Encounter for dental examina tion and cleaning without abnormal findings Z01.20 [facility] [address] [id number] [address] [place] [address] [id number] Mar, Dental examination Z01.20 [facility] [address] [id number] [address] [place] [address] [id number] Sep, Dental examination Z01.20 [facility] [address] [id number] [place] [address] [id number] January, Dental examination Z01.20 [facility] [address] [id number] [address] [place] [address] [id number] Dec, Encounter for dental examina tion Z01.20 [facility] [address] [id number] [address] [place] [address] [id number] Dec, Dental examination Z01.20 [facility] [address] [id number] [address] [place] [address] [id number] Nov, Dental examination Z01.20 [facility] [address] [id number] [address] [place] [address] [id number] Jul, Encounter for dental examina tion Z01.20 and Dental examination Z01.20 [facility] [address] [id number] [address] [place] [address] [id number] Apr, Dental examination V72.2 [facility] [address] [id number] [address] [place] [address] [id number] Mar, Dental examination V72.2 [facility] [place] [address] [id number] [address] [place] [phone] January, [facility] [place] [address] [id number] [address] [place] [phone] January, [facility] [place] [address] [facility] [id number] [address] [place] [phone] January, [facility] [place] [address] [facility] [id number] [address] [place] [phone] January, [facility] [place] [address] [facility] [id number] [address] [place] [phone] Jul, IMMUNIZATIONS No Known Immunizations SOCIAL HISTORY Never Assessed REASON FOR VISIT Bump on head, CBRumbackRn PLAN OF CARE VITAL SIGNS MEDICATIONS Unknown [...]
--- OUTSIDE RECORDS SUMMARY | 2020-03-14 17:22 | XMS REPORT ---
Author Author Lata SAMUEL Organization [facility] Address [address] [place] [address] Care Team Providers Care Graphic User Interface Designer Name Role Phone JIMMIE YU Unavailable PROBLEMS Type Condition ICD9-CM Code GUY33-SN Code Onset Dates Condition S tatus SNOMED Code Problem Unspecified mood [affective] disorder F39 Active 07486067 Problem Anxiety F41.9 Active 85553455 Problem 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 Active 006235780 Problem Irritable bowel syndrome with both constipation and diarrh ea K58.2 Active 95731085 Problem Attention deficit hyperactiv ity disorder (ADHD), predominantly inattentive type F90.0 Active 16639036 Problem Mood disorder F39 Active 692324 05 Problem Environmental allergies Z91.09 Active 031509515 Problem Postconcussion syndrome F07.81 Active 68668591 Problem Mild intellectual disability F70 A ctive 83969103 Problem Depression, unspecified depression type F32.9 Active 24984495 Problem Unsteady gait R26.81 Active 179009 08 Problem 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 Active 12476384 ALLERGIES No Information ENCOUNTERS Encounter Location Date Diagnosis [facility] [address] [facility] [id number] [address] [place] [phone] Jun, [facility] [address] [facility] [id number] [address] [place] [phone] May, [facility] [address] [facility] [id number] [address] [place] [phone] May, [facility] [address] [facility] [id number] [address] [place] [phone] Apr, Environmental allergies Z91. 09 [facility] [address] [facility] [id number] [address] [place] [phone] Apr, [facility] [address] [id number] [address] [place] [phone] Apr, Nail hypertrophy L60.2 and S elf-care deficit for grooming and hygiene Z74.1 [facility] [address] [id number] [address] [place] [phone] Apr, Environmental allergies Z91. 09 [facility] [address] [id number] [address] [place] [phone] Apr, [facility] [address] [id number] [address] [place] [phone] Apr, [facility] [address] [id number] [address] [place] [phone] Apr, [facility] [address] [facility] [id number] [address] [place] [phone] Apr, Environmental allergies Z91. 09 [facility] [address] [id number] [address] [place] [phone] Apr, [facility] [address] [id number] [address] [place] [phone] Apr, Anxiety F41.9 [facility] [address] [facility] [id number] [address] [place] [phone] Mar, Nail hypertrophy L60.2 and S elf-care deficit for hygiene R46.0 [facility] [address] [id number] [address] [place] [phone] Mar, [facility] [address] [facility] [id number] [address] [place] [phone] Mar, [facility] [address] [facility] [id number] [address] [place] [phone] Mar, Anxiety F41.9 ; Mood disorde r F39 and Dysfunction of both eustachian tubes H69.83 [facility] [address] [facility] [id number] [address] [place] [phone] Mar, Seizures R56.9 [facility] [address] [id number] [address] [place] [phone] Mar, Folliculitis L73.9 [facility] [address] [id number] [address] [place] [phone] Mar, Mild intellectual disability F70 ; Depression, unspecified depression type F32.9 and Anxiety F41.9 [facility] [address] [id number] [address] [place] [phone] Mar, Seizures R56.9 and Folliculi tis L73.9 [facility] [address] [id number] [address] [place] [phone] Feb, [facility] [address] [id number] [address] [place] [id number] Feb, Postconcussion syndrome F07. 81 and Folliculitis L73.9 [facility] [address] [id number] [address] [place] [phone] Feb, Postconcussion syndrome F07. 81 [facility] [address] [id number] [address] [place] [phone] Feb, [facility] [address] [id number] [address] [place] [address] [phone] Feb, [facility] [address] [id number] [address] [place] [address] [phone] Feb, Dental caries extending into dentin K02.62 [facility] [address] [id number] [address] [place] [phone] January, [facility] [address] [id number] [address] [place] [phone] January, [facility] [address] [id number] [address] [place] [phone] January, Onychomycosis B35.1 [facility] [address] [id number] [address] [place] [address] [phone] January, Dental caries extending into dentin K02.62 [facility] [address] [facility] [id number] [address] [place] [phone] Dec, [facility] [address] [facility] [id number] [address] [place] [phone] Dec, [facility] [address] [facility] [id number] [address] [place] [phone] Dec, [facility] [address] [facility] [id number] [place] [phone] Dec, Mild intellectual disability F70 ; Depression, unspecified depression type F32.9 ; Anxiety F41.9 and BMI 45.0-49.9, adult Z68.42 [facility] [address] [facility] [id number] [address] [place] [phone] Dec, Folliculitis L73.9 [facility] [address] [facility] [id number] [address] [place] [phone] Dec, Mild intellectual disability F70 ; Unsteady gait R26.81 and Generalized weakness R53.1 [facility] [address] [place] [id number] [address] [place] [address] [phone] Nov, [facility] [address] [facility] [id number] [address] [place] [phone] Nov, [facility] [address] [facility] [id number] [address] [place] [phone] Nov, Folliculitis L73.9 ; Tinea c orporis B35.4 and Onychomycosis B35.1 [facility] [address] [id number] [address] [place] [address] [phone] Oct, [facility] [address] [facility] [id number] [address] [place] [phone] Oct, Mood disorder F39 [facility] [address] [facility] [id number] [address] [place] [phone] Oct, [facility] [address] [facility] [id number] [address] [place] [phone] Oct, Left hip pain M25.552 and Mu scle spasm M62.838 [facility] [address] [facility] [id number] [address] [place] [address] [phone] Oct, [facility] [address] [place] [id number] [address] [place] [phone] Oct, Other specified mental disor ders 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 ; Anxiety F41.9 ; Onychomycosis B35.1 ; BMI 40.0-44.9, adult Z68.41 and Alkaline phosphatase elevation R74.8 [facility] [address] [place] [id number] [address] [place] [phone] Sep, Mild intellectual disability F70 [facility] [address] [place] [id number] [address] [place] [phone] Sep, [facility] [address] [place] [id number] [address] [place] [phone] Sep, Alkaline phosphatase elevati on R74.8 [place] [address] [phone] Sep, Alkaline phosphatase elevati on R74.8 [facility] [address] [place] [id number] [address] [place] [phone] Sep, Mood disorder F39 ; Attentio n deficit hyperactivity disorder (ADHD), predominantly inattentive type F90.0 ; Irritable bowel syndrome with both constipation and diarrhea K58.2 and Seizures R56.9 [facility] [address] [place] [id number] [address] [place] [phone] Sep, Mild intellectual disability F70 ; Depression, unspecified depression type F32.9 ; Anxiety F41.9 and BMI 40.0-44.9, adult Z68.41 [facility] [address] [place] [id number] [address] [place] [phone] Sep, [facility] [address] [id number] [address] [place] [phone] Sep, [facility] [address] [id number] [address] [place] [phone] Sep, [facility] [address] [id number] [address] [place] [phone] Sep, [facility] [address] [id number] [address] [place] [phone] Sep, [facility] [address] [id number] [address] [place] [address] [phone] Aug, Encounter for dental examina tion and cleaning without abnormal findings Z01.20 [facility] [address] [id number] [address] [place] [address] [id number] Aug, Dental examination Z01.20 [facility] [address] [id number] [address] [place] [phone] Aug, [facility] [address] [id number] [address] [place] [phone] Aug, Depression, unspecified depr ession type F32.9 ; Mild intellectual disability F70 and Anxiety F41.9 [facility] [address] [id number] [address] [place] [phone] Aug, Mood disorder F39 ; Attentio n deficit hyperactivity disorder (ADHD), predominantly inattentive type F90.0 ; Irritable bowel syndrome with both constipation and diarrhea K58.2 and Seizures R56.9 [facility] [address] [id number] [address] [place] [phone] Aug, Depression, unspecified depr ession type F32.9 ; Mild intellectual disability F70 and Anxiety F41.9 [facility] [address] [id number] [address] [place] [phone] Aug, [facility] [address] [id number] [address] [place] [address] [phone] Jul, Dental examination Z01.20 an d Dental caries K02.9 [facility] [address] [id number] [address] [place] [phone] Jun, Unspecified mood [affective] disorder F39 and 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 [facility] [address] [id number] [address] [place] [address] [phone] May, Encounter for dental examina tion and cleaning without abnormal findings Z01.20 [facility] [address] [id number] [address] [place] [address] [phone] Mar, Dental examination Z01.20 [facility] [address] [id number] [address] [place] [address] [id number] Sep, Dental examination Z01.20 [facility] [address] [id number] [place] [address] [phone] January, Dental examination Z01.20 [facility] [address] [id number] [place] [address] [id number] Dec, Encounter for dental examina tion Z01.20 [facility] [address] [id number] [address] [place] [address] [phone] Dec, Dental examination Z01.20 [facility] [address] [id number] [address] [place] [address] [id number] Nov, Dental examination Z01.20 [facility] [address] [id number] [address] [place] [address] [phone] Jul, Encounter for dental examina tion Z01.20 and Dental examination Z01.20 [facility] [address] [id number] [address] [place] [address] [phone] Apr, Dental examination V72.2 [facility] [address] [id number] [address] [place] [address] [phone] Mar, Dental examination V72.2 [facility] [address] [id number] [address] [place] [phone] January, [facility] [address] [facility] [id number] [address] [place] [phone] January, [facility] [address] [facility] [id number] [address] [place] [phone] January, [facility] [address] [facility] [id number] [address] [place] [phone] January, [facility] [address] [facility] [id number] [address] [place] [phone] Jul, IMMUNIZATIONS No Known Immunizations SOCIAL HISTORY Never Assessed REASON FOR VISIT Requests return call/ PLAN OF CARE VITAL SIGNS MEDICATIONS Unknown [...]
--- OUTSIDE RECORDS SUMMARY | 2020-03-14 17:22 | XMS REPORT ---
Author Author Lata SAMUEL Organization [facility] Address [address] [place] [address] Care Team Providers Care Caterers Helper Name Role Phone JIMMIE YU Unavailable PROBLEMS Type Condition ICD9-CM Code AGN79-SC Code Onset Dates Condition S tatus SNOMED Code Problem Unspecified mood [affective] disorder F39 Active 73311312 Problem Anxiety F41.9 Active 17958182 Problem 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 Active 660342976 Problem Irritable bowel syndrome with both constipation and diarrh ea K58.2 Active 79502006 Problem Attention deficit hyperactiv ity disorder (ADHD), predominantly inattentive type F90.0 Active 46390996 Problem Mood disorder F39 Active 130564 05 Problem Environmental allergies Z91.09 Active 553967604 Problem Postconcussion syndrome F07.81 Active 27944827 Problem Mild intellectual disability F70 A ctive 09687344 Problem Depression, unspecified depression type F32.9 Active 10419355 Problem Unsteady gait R26.81 Active 662248 08 Problem 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 Active 39654044 ALLERGIES No Information ENCOUNTERS Encounter Location Date Diagnosis [facility] [address] [facility] [id number] [address] [place] [phone] Jun, [facility] [address] [facility] [id number] [address] [place] [phone] May, [facility] [address] [facility] [id number] [address] [place] [phone] May, [facility] [address] [facility] [id number] [address] [place] [phone] Apr, Environmental allergies Z91. 09 [facility] [address] [facility] [id number] [address] [place] [phone] Apr, [facility] [address] [id number] [address] [place] [phone] Apr, Nail hypertrophy L60.2 and S elf-care deficit for grooming and hygiene Z74.1 [facility] [address] [id number] [address] [place] [phone] Apr, Environmental allergies Z91. 09 [facility] [address] [id number] [address] [place] [phone] Apr, [facility] [address] [id number] [address] [place] [phone] Apr, [facility] [address] [id number] [address] [place] [phone] Apr, [facility] [address] [facility] [id number] [address] [place] [phone] Apr, Environmental allergies Z91. 09 [facility] [address] [id number] [address] [place] [phone] Apr, [facility] [address] [id number] [address] [place] [phone] Apr, Anxiety F41.9 [facility] [address] [facility] [id number] [address] [place] [phone] Mar, Nail hypertrophy L60.2 and S elf-care deficit for hygiene R46.0 [facility] [address] [id number] [address] [place] [phone] Mar, [facility] [address] [facility] [id number] [address] [place] [phone] Mar, [facility] [address] [facility] [id number] [address] [place] [phone] Mar, Anxiety F41.9 ; Mood disorde r F39 and Dysfunction of both eustachian tubes H69.83 [facility] [address] [facility] [id number] [address] [place] [phone] Mar, Seizures R56.9 [facility] [address] [id number] [address] [place] [phone] Mar, Folliculitis L73.9 [facility] [address] [id number] [address] [place] [phone] Mar, Mild intellectual disability F70 ; Depression, unspecified depression type F32.9 and Anxiety F41.9 [facility] [address] [id number] [address] [place] [phone] Mar, Seizures R56.9 and Folliculi tis L73.9 [facility] [address] [id number] [address] [place] [phone] Feb, [facility] [address] [id number] [address] [place] [phone] Feb, Postconcussion syndrome F07. 81 and Folliculitis L73.9 [facility] [address] [id number] [address] [place] [phone] Feb, Postconcussion syndrome F07. 81 [facility] [address] [id number] [address] [place] [phone] Feb, [facility] [address] [id number] [address] [place] [address] [id number] Feb, [facility] [address] [id number] [address] [place] [address] [id number] Feb, Dental caries extending into dentin K02.62 [facility] [address] [id number] [address] [place] [phone] January, [facility] [address] [id number] [address] [place] [phone] January, [facility] [address] [id number] [address] [place] [phone] January, Onychomycosis B35.1 [facility] [address] [id number] [address] [place] [address] [id number] January, Dental caries extending into dentin K02.62 [facility] [address] [facility] [id number] [address] [place] [phone] Dec, [facility] [address] [facility] [id number] [address] [place] [phone] Dec, [facility] [address] [facility] [id number] [address] [place] [phone] Dec, [facility] [address] [facility] [id number] [place] [phone] Dec, Mild intellectual disability F70 ; Depression, unspecified depression type F32.9 ; Anxiety F41.9 and BMI 45.0-49.9, adult Z68.42 [facility] [address] [facility] [id number] [address] [place] [phone] Dec, Folliculitis L73.9 [facility] [address] [facility] [id number] [address] [place] [phone] Dec, Mild intellectual disability F70 ; Unsteady gait R26.81 and Generalized weakness R53.1 [facility] [address] [place] [id number] [address] [place] [address] [id number] Nov, [facility] [address] [facility] [id number] [address] [place] [phone] Nov, [facility] [address] [facility] [id number] [address] [place] [phone] Nov, Folliculitis L73.9 ; Tinea c orporis B35.4 and Onychomycosis B35.1 [facility] [address] [id number] [address] [place] [address] [id number] Oct, [facility] [address] [facility] [id number] [address] [place] [phone] Oct, Mood disorder F39 [facility] [address] [facility] [id number] [address] [place] [phone] Oct, [facility] [address] [facility] [id number] [address] [place] [phone] Oct, Left hip pain M25.552 and Mu scle spasm M62.838 [facility] [address] [facility] [id number] [address] [place] [address] [id number] Oct, [facility] [address] [place] [id number] [address] [place] [phone] Oct, Other specified mental disor ders 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 ; Anxiety F41.9 ; Onychomycosis B35.1 ; BMI 40.0-44.9, adult Z68.41 and Alkaline phosphatase elevation R74.8 [facility] [address] [place] [id number] [address] [place] [phone] Sep, Mild intellectual disability F70 [facility] [address] [place] [id number] [address] [place] [phone] Sep, [facility] [address] [place] [id number] [address] [place] [phone] Sep, Alkaline phosphatase elevati on R74.8 [place] [address] [phone] Sep, Alkaline phosphatase elevati on R74.8 [facility] [address] [place] [id number] [address] [place] [phone] Sep, Mood disorder F39 ; Attentio n deficit hyperactivity disorder (ADHD), predominantly inattentive type F90.0 ; Irritable bowel syndrome with both constipation and diarrhea K58.2 and Seizures R56.9 [facility] [address] [place] [id number] [address] [place] [phone] Sep, Mild intellectual disability F70 ; Depression, unspecified depression type F32.9 ; Anxiety F41.9 and BMI 40.0-44.9, adult Z68.41 [facility] [address] [place] [id number] [address] [place] [phone] Sep, [facility] [address] [id number] [address] [place] [phone] Sep, [facility] [address] [id number] [address] [place] [phone] Sep, [facility] [address] [id number] [address] [place] [phone] Sep, [facility] [address] [id number] [address] [place] [phone] Sep, [facility] [address] [id number] [address] [place] [address] [id number] Aug, Encounter for dental examina tion and cleaning without abnormal findings Z01.20 [facility] [address] [id number] [address] [place] [address] [id number] Aug, Dental examination Z01.20 [facility] [address] [id number] [address] [place] [phone] Aug, [facility] [address] [id number] [address] [place] [phone] Aug, Depression, unspecified depr ession type F32.9 ; Mild intellectual disability F70 and Anxiety F41.9 [facility] [address] [id number] [address] [place] [phone] Aug, Mood disorder F39 ; Attentio n deficit hyperactivity disorder (ADHD), predominantly inattentive type F90.0 ; Irritable bowel syndrome with both constipation and diarrhea K58.2 and Seizures R56.9 [facility] [address] [id number] [address] [place] [phone] Aug, Depression, unspecified depr ession type F32.9 ; Mild intellectual disability F70 and Anxiety F41.9 [facility] [address] [id number] [address] [place] [phone] Aug, [facility] [address] [id number] [address] [place] [address] [id number] Jul, Dental examination Z01.20 an d Dental caries K02.9 [facility] [address] [id number] [address] [place] [phone] Jun, Unspecified mood [affective] disorder F39 and 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 [facility] [address] [id number] [address] [place] [address] [phone] May, Encounter for dental examina tion and cleaning without abnormal findings Z01.20 [facility] [address] [id number] [address] [place] [address] [id number] Mar, Dental examination Z01.20 [facility] [address] [id number] [address] [place] [address] [id number] Sep, Dental examination Z01.20 [facility] [address] [id number] [place] [address] [id number] January, Dental examination Z01.20 [facility] [address] [id number] [place] [address] [id number] Dec, Encounter for dental examina tion Z01.20 [facility] [address] [id number] [address] [place] [address] [id number] Dec, Dental examination Z01.20 [facility] [address] [id number] [address] [place] [address] [id number] Nov, Dental examination Z01.20 [facility] [address] [id number] [address] [place] [address] [id number] Jul, Encounter for dental examina tion Z01.20 and Dental examination Z01.20 [facility] [address] [id number] [address] [place] [address] [id number] Apr, Dental examination V72.2 [facility] [address] [id number] [address] [place] [address] [id number] Mar, Dental examination V72.2 [facility] [address] [id number] [address] [place] [phone] January, [facility] [address] [facility] [id number] [address] [place] [phone] January, [facility] [address] [facility] [id number] [address] [place] [phone] January, [facility] [address] [facility] [id number] [address] [place] [phone] January, [facility] [address] [facility] [id number] [address] [place] [phone] Jul, IMMUNIZATIONS No Known Immunizations SOCIAL HISTORY Never Assessed REASON FOR VISIT PATANOL note PLAN OF CARE VITAL SIGNS MEDICATIONS Medication Instructions Dosage Frequency Start Date End Date Duration S tatus Cromolyn Sodium 4 % Ophthalmic Four times a day 1 drop into affecte d eye 6h Apr, 30 days Active RESULTS No Results [...]
--- OUTSIDE RECORDS SUMMARY | 2020-03-14 17:22 | XMS REPORT ---
Author Author Lata SAMUEL Organization [facility] Address [address] [place] [address] Care Team Providers Care Election Watcher Name Role Phone JIMMIE YU Unavailable PROBLEMS Type Condition ICD9-CM Code PUA86-MT Code Onset Dates Condition S tatus SNOMED Code Problem Unspecified mood [affective] disorder F39 Active 15392719 Problem Anxiety F41.9 Active 33802644 Problem 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 Active 952280262 Problem Irritable bowel syndrome with both constipation and diarrh ea K58.2 Active 81321914 Problem Attention deficit hyperactiv ity disorder (ADHD), predominantly inattentive type F90.0 Active 21191059 Problem Mood disorder F39 Active 578210 05 Problem Environmental allergies Z91.09 Active 295355988 Problem Postconcussion syndrome F07.81 Active 97983775 Problem Mild intellectual disability F70 A ctive 58072111 Problem Depression, unspecified depression type F32.9 Active 22893603 Problem Unsteady gait R26.81 Active 428876 08 Problem 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 09 [facility] [address] [facility] [id number] [address] [place] [phone] Apr, [facility] [address] [id number] [address] [place] [id number] Apr, Nail hypertrophy L60.2 and S elf-care deficit for grooming and hygiene Z74.1 [facility] [address] [id number] [address] [place] [id number] Apr, Environmental allergies Z91. 09 [facility] [address] [id number] [address] [place] [phone] Apr, [facility] [address] [id number] [address] [place] [phone] Apr, [facility] [address] [id number] [address] [place] [phone] Apr, [facility] [address] [facility] [id number] [address] [place] [phone] Apr, Environmental allergies Z91. 09 [facility] [address] [id number] [address] [place] [id number] Apr, [facility] [address] [id number] [address] [place] [id number] Apr, Anxiety F41.9 [facility] [address] [facility] [id number] [address] [place] [id number] Mar, Nail hypertrophy L60.2 and S elf-care deficit for hygiene R46.0 [facility] [address] [id number] [address] [place] [id number] Mar, [facility] [address] [facility] [id number] [address] [place] [id number] Mar, [facility] [address] [facility] [id number] [address] [place] [phone] Mar, Anxiety F41.9 ; Mood disorde r F39 and Dysfunction of both eustachian tubes H69.83 [facility] [address] [facility] [id number] [address] [place] [id number] Mar, Seizures R56.9 [facility] [address] [id number] [address] [place] [id number] Mar, Folliculitis L73.9 [facility] [address] [id number] [address] [place] [id number] Mar, Mild intellectual disability F70 ; Depression, unspecified depression type F32.9 and Anxiety F41.9 [facility] [address] [id number] [address] [place] [id number] Mar, Seizures R56.9 and Folliculi tis L73.9 [facility] [address] [id number] [address] [place] [id number] Feb, [facility] [address] [id number] [address] [place] [id number] Feb, Postconcussion syndrome F07. 81 and Folliculitis L73.9 [facility] [address] [id number] [address] [place] [id number] Feb, Postconcussion syndrome F07. 81 [facility] [address] [id number] [address] [place] [phone] Feb, [facility] [address] [id number] [address] [place] [address] [id number] Feb, [facility] [address] [id number] [address] [place] [address] [id number] Feb, Dental caries extending into dentin K02.62 [facility] [address] [id number] [address] [place] [id number] January, [facility] [address] [id number] [address] [place] [id number] January, [facility] [address] [id number] [address] [place] [id number] January, Onychomycosis B35.1 [facility] [address] [id number] [address] [place] [address] [id number] January, Dental caries extending into dentin K02.62 [facility] [address] [facility] [id number] [address] [place] [id number] Dec, [facility] [address] [facility] [id number] [address] [place] [phone] Dec, [facility] [address] [facility] [id number] [address] [place] [id number] Dec, [facility] [address] [facility] [id number] [place] [id number] Dec, Mild intellectual disability F70 ; Depression, unspecified depression type F32.9 ; Anxiety F41.9 and BMI 45.0-49.9, adult Z68.42 [facility] [address] [facility] [id number] [address] [place] [id number] Dec, Folliculitis L73.9 [facility] [address] [facility] [id number] [address] [place] [id number] Dec, Mild intellectual disability F70 ; Unsteady gait R26.81 and Generalized weakness R53.1 [facility] [address] [place] [id number] [address] [place] [address] [id number] Nov, [facility] [address] [facility] [id number] [address] [place] [id number] Nov, [facility] [address] [facility] [id number] [address] [place] [id number] Nov, Folliculitis L73.9 ; Tinea c orporis B35.4 and Onychomycosis B35.1 [facility] [address] [id number] [address] [place] [address] [id number] Oct, [facility] [address] [facility] [id number] [address] [place] [phone] Oct, Mood disorder F39 [facility] [address] [facility] [id number] [address] [place] [id number] Oct, [facility] [address] [facility] [id number] [address] [place] [id number] Oct, Left hip pain M25.552 and Mu scle spasm M62.838 [facility] [address] [facility] [id number] [address] [place] [address] [phone] Oct, [facility] [address] [place] [id number] [address] [place] [phone] Oct, Other specified mental disor ders 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 ; Anxiety F41.9 ; Onychomycosis B35.1 ; BMI 40.0-44.9, adult Z68.41 and Alkaline phosphatase elevation R74.8 [facility] [address] [place] [id number] [address] [place] [id number] Sep, Mild intellectual disability F70 [facility] [address] [place] [id number] [address] [place] [id number] Sep, [facility] [address] [place] [id number] [address] [place] [id number] Sep, Alkaline phosphatase elevati on R74.8 [place] [address] [id number] Sep, Alkaline phosphatase elevati on R74.8 [facility] [address] [place] [id number] [address] [place] [id number] Sep, Mood disorder F39 ; Attentio n deficit hyperactivity disorder (ADHD), predominantly inattentive type F90.0 ; Irritable bowel syndrome with both constipation and diarrhea K58.2 and Seizures R56.9 [facility] [address] [place] [id number] [address] [place] [id number] Sep, Mild intellectual disability F70 ; Depression, unspecified depression type F32.9 ; Anxiety F41.9 and BMI 40.0-44.9, adult Z68.41 [facility] [address] [place] [id number] [address] [place] [phone] Sep, [facility] [address] [id number] [address] [place] [phone] Sep, [facility] [address] [id number] [address] [place] [phone] Sep, [facility] [address] [id number] [address] [place] [id number] Sep, [facility] [address] [id number] [address] [place] [id number] Sep, [facility] [address] [id number] [address] [place] [address] [id number] Aug, Encounter for dental examina tion and cleaning without abnormal findings Z01.20 [facility] [address] [id number] [address] [place] [address] [id number] Aug, Dental examination Z01.20 [facility] [address] [id number] [address] [place] [phone] Aug, [facility] [address] [id number] [address] [place] [id number] Aug, Depression, unspecified depr ession type F32.9 ; Mild intellectual disability F70 and Anxiety F41.9 [facility] [address] [id number] [address] [place] [id number] Aug, Mood disorder F39 ; Attentio n deficit hyperactivity disorder (ADHD), predominantly inattentive type F90.0 ; Irritable bowel syndrome with both constipation and diarrhea K58.2 and Seizures R56.9 [facility] [address] [id number] [address] [place] [id number] Aug, Depression, unspecified depr ession type F32.9 ; Mild intellectual disability F70 and Anxiety F41.9 [facility] [address] [id number] [address] [place] [id number] Aug, [facility] [address] [id number] [address] [place] [address] [id number] Jul, Dental examination Z01.20 an d Dental caries K02.9 [facility] [address] [id number] [address] [place] [id number] Jun, Unspecified mood [affective] disorder F39 and 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 [facility] [address] [id number] [address] [place] [address] [id number] May, Encounter for dental examina tion and cleaning without abnormal findings Z01.20 [facility] [address] [id number] [address] [place] [address] [id number] Mar, Dental examination Z01.20 [facility] [address] [id number] [address] [place] [address] [id number] Sep, Dental examination Z01.20 [facility] [address] [id number] [place] [address] [id number] January, Dental examination Z01.20 [facility] [address] [id number] [place] [address] [id number] Dec, Encounter for dental examina tion Z01.20 [facility] [address] [id number] [address] [place] [address] [id number] Dec, Dental examination Z01.20 [facility] [address] [id number] [address] [place] [address] [id number] Nov, Dental examination Z01.20 [facility] [address] [id number] [address] [place] [address] [id number] Jul, Encounter for dental examina tion Z01.20 and Dental examination Z01.20 [facility] [address] [id number] [address] [place] [address] [id number] Apr, Dental examination V72.2 [facility] [address] [id number] [address] [place] [address] [id number] Mar, Dental examination V72.2 [facility] [address] [id number] [address] [place] [id number] January, [facility] [address] [facility] [id number] [address] [place] [phone] January, [facility] [address] [facility] [id number] [address] [place] [id number] January, [facility] [address] [facility] [id number] [address] [place] [phone] January, [facility] [address] [facility] [id number] [address] [place] [phone] Jul, IMMUNIZATIONS No Known Immunizations SOCIAL HISTORY Never Assessed REASON FOR VISIT PA for eye drops PLAN OF CARE VITAL SIGNS MEDICATIONS Unknown [...]
--- OUTSIDE RECORDS SUMMARY | 2020-03-14 17:22 | XMS REPORT ---
Author Author Lata SAMUEL Organization [facility] Address [address] [place] [address] Care Team Providers Care Environmental Web Crawler Name Role Phone JIMMIE YU Unavailable PROBLEMS Type Condition ICD9-CM Code COK26-MO Code Onset Dates Condition S tatus SNOMED Code Problem Unspecified mood [affective] disorder F39 Active 79731358 Problem Anxiety F41.9 Active 95226588 Problem 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 Active 242965539 Problem Irritable bowel syndrome with both constipation and diarrh ea K58.2 Active 57060501 Problem Attention deficit hyperactiv ity disorder (ADHD), predominantly inattentive type F90.0 Active 69302878 Problem Mood disorder F39 Active 532718 05 Problem Environmental allergies Z91.09 Active 433020815 Problem Postconcussion syndrome F07.81 Active 54855634 Problem Mild intellectual disability F70 A ctive 94844066 Problem Depression, unspecified depression type F32.9 Active 93233600 Problem Unsteady gait R26.81 Active 818868 08 Problem 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 Active 33403422 ALLERGIES No Information ENCOUNTERS Encounter Location Date Diagnosis [facility] [address] [facility] [id number] [address] [place] [phone] Jun, [facility] [address] [facility] [id number] [address] [place] [phone] May, [facility] [address] [facility] [id number] [address] [place] [phone] May, [facility] [address] [facility] [id number] [address] [place] [phone] Apr, Environmental allergies Z91. 09 [facility] [address] [facility] [id number] [address] [place] [phone] Apr, [facility] [address] [id number] [address] [place] [phone] Apr, Nail hypertrophy L60.2 and S elf-care deficit for grooming and hygiene Z74.1 [facility] [address] [id number] [address] [place] [phone] Apr, Environmental allergies Z91. 09 [facility] [address] [id number] [address] [place] [phone] Apr, [facility] [address] [id number] [address] [place] [phone] Apr, [facility] [address] [id number] [address] [place] [phone] Apr, [facility] [address] [facility] [id number] [address] [place] [phone] Apr, Environmental allergies Z91. 09 [facility] [address] [id number] [address] [place] [phone] Apr, [facility] [address] [id number] [address] [place] [phone] Apr, Anxiety F41.9 [facility] [address] [facility] [id number] [address] [place] [phone] Mar, Nail hypertrophy L60.2 and S elf-care deficit for hygiene R46.0 [facility] [address] [id number] [address] [place] [phone] Mar, [facility] [address] [facility] [id number] [address] [place] [phone] Mar, [facility] [address] [facility] [id number] [address] [place] [phone] Mar, Anxiety F41.9 ; Mood disorde r F39 and Dysfunction of both eustachian tubes H69.83 [facility] [address] [facility] [id number] [address] [place] [phone] Mar, Seizures R56.9 [facility] [address] [id number] [address] [place] [phone] Mar, Folliculitis L73.9 [facility] [address] [id number] [address] [place] [phone] Mar, Mild intellectual disability F70 ; Depression, unspecified depression type F32.9 and Anxiety F41.9 [facility] [address] [id number] [address] [place] [phone] Mar, Seizures R56.9 and Folliculi tis L73.9 [facility] [address] [id number] [address] [place] [phone] Feb, [facility] [address] [id number] [address] [place] [phone] Feb, Postconcussion syndrome F07. 81 and Folliculitis L73.9 [facility] [address] [id number] [address] [place] [phone] Feb, Postconcussion syndrome F07. 81 [facility] [address] [id number] [address] [place] [phone] Feb, [facility] [address] [id number] [address] [place] [address] [id number] Feb, [facility] [address] [id number] [address] [place] [address] [id number] Feb, Dental caries extending into dentin K02.62 [facility] [address] [id number] [address] [place] [phone] January, [facility] [address] [id number] [address] [place] [phone] January, [facility] [address] [id number] [address] [place] [phone] January, Onychomycosis B35.1 [facility] [address] [id number] [address] [place] [address] [id number] January, Dental caries extending into dentin K02.62 [facility] [address] [facility] [id number] [address] [place] [phone] Dec, [facility] [address] [facility] [id number] [address] [place] [phone] Dec, [facility] [address] [facility] [id number] [address] [place] [phone] Dec, [facility] [address] [facility] [id number] [place] [phone] Dec, Mild intellectual disability F70 ; Depression, unspecified depression type F32.9 ; Anxiety F41.9 and BMI 45.0-49.9, adult Z68.42 [facility] [address] [facility] [id number] [address] [place] [phone] Dec, Folliculitis L73.9 [facility] [address] [facility] [id number] [address] [place] [phone] Dec, Mild intellectual disability F70 ; Unsteady gait R26.81 and Generalized weakness R53.1 [facility] [address] [place] [id number] [address] [place] [address] [id number] Nov, [facility] [address] [facility] [id number] [address] [place] [phone] Nov, [facility] [address] [facility] [id number] [address] [place] [phone] Nov, Folliculitis L73.9 ; Tinea c orporis B35.4 and Onychomycosis B35.1 [facility] [address] [id number] [address] [place] [address] [id number] Oct, [facility] [address] [facility] [id number] [address] [place] [phone] Oct, Mood disorder F39 [facility] [address] [facility] [id number] [address] [place] [phone] Oct, [facility] [address] [facility] [id number] [address] [place] [phone] Oct, Left hip pain M25.552 and Mu scle spasm M62.838 [facility] [address] [facility] [id number] [address] [place] [address] [id number] Oct, [facility] [address] [place] [id number] [address] [place] [phone] Oct, Other specified mental disor ders 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 ; Anxiety F41.9 ; Onychomycosis B35.1 ; BMI 40.0-44.9, adult Z68.41 and Alkaline phosphatase elevation R74.8 [facility] [address] [place] [id number] [address] [place] [phone] Sep, Mild intellectual disability F70 [facility] [address] [place] [id number] [address] [place] [phone] Sep, [facility] [address] [place] [id number] [address] [place] [phone] Sep, Alkaline phosphatase elevati on R74.8 [place] [address] [phone] Sep, Alkaline phosphatase elevati on R74.8 [facility] [address] [place] [id number] [address] [place] [phone] Sep, Mood disorder F39 ; Attentio n deficit hyperactivity disorder (ADHD), predominantly inattentive type F90.0 ; Irritable bowel syndrome with both constipation and diarrhea K58.2 and Seizures R56.9 [facility] [address] [place] [id number] [address] [place] [phone] Sep, Mild intellectual disability F70 ; Depression, unspecified depression type F32.9 ; Anxiety F41.9 and BMI 40.0-44.9, adult Z68.41 [facility] [address] [place] [id number] [address] [place] [phone] Sep, [facility] [address] [id number] [address] [place] [phone] Sep, [facility] [address] [id number] [address] [place] [phone] Sep, [facility] [address] [id number] [address] [place] [phone] Sep, [facility] [address] [id number] [address] [place] [phone] Sep, [facility] [address] [id number] [address] [place] [address] [id number] Aug, Encounter for dental examina tion and cleaning without abnormal findings Z01.20 [facility] [address] [id number] [address] [place] [address] [id number] Aug, Dental examination Z01.20 [facility] [address] [id number] [address] [place] [phone] Aug, [facility] [address] [id number] [address] [place] [phone] Aug, Depression, unspecified depr ession type F32.9 ; Mild intellectual disability F70 and Anxiety F41.9 [facility] [address] [id number] [address] [place] [phone] Aug, Mood disorder F39 ; Attentio n deficit hyperactivity disorder (ADHD), predominantly inattentive type F90.0 ; Irritable bowel syndrome with both constipation and diarrhea K58.2 and Seizures R56.9 [facility] [address] [id number] [address] [place] [phone] Aug, Depression, unspecified depr ession type F32.9 ; Mild intellectual disability F70 and Anxiety F41.9 [facility] [address] [id number] [address] [place] [phone] Aug, [facility] [address] [id number] [address] [place] [address] [id number] Jul, Dental examination Z01.20 an d Dental caries K02.9 [facility] [address] [id number] [address] [place] [phone] Jun, Unspecified mood [affective] disorder F39 and 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 [facility] [address] [id number] [address] [place] [address] [id number] May, Encounter for dental examina tion and cleaning without abnormal findings Z01.20 [facility] [address] [id number] [address] [place] [address] [id number] Mar, Dental examination Z01.20 [facility] [address] [id number] [address] [place] [address] [id number] Sep, Dental examination Z01.20 [facility] [address] [id number] [place] [address] [id number] January, Dental examination Z01.20 [facility] [address] [id number] [place] [address] [id number] Dec, Encounter for dental examina tion Z01.20 [facility] [address] [id number] [address] [place] [address] [id number] Dec, Dental examination Z01.20 [facility] [address] [id number] [address] [place] [address] [id number] Nov, Dental examination Z01.20 [facility] [address] [id number] [address] [place] [address] [phone] Jul, Encounter for dental examina tion Z01.20 and Dental examination Z01.20 [facility] [address] [id number] [address] [place] [address] [id number] Apr, Dental examination V72.2 [facility] [address] [id number] [address] [place] [address] [id number] Mar, Dental examination V72.2 [facility] [address] [id number] [address] [place] [phone] January, [facility] [address] [facility] [id number] [address] [place] [phone] January, [facility] [address] [facility] [id number] [address] [place] [phone] January, [facility] [address] [facility] [id number] [address] [place] [phone] January, [facility] [address] [facility] [id number] [address] [place] [phone] Jul, IMMUNIZATIONS No Known Immunizations SOCIAL HISTORY Never Assessed REASON FOR VISIT Rx request PLAN OF CARE VITAL SIGNS MEDICATIONS Medication Instructions Dosage Frequency Start Date End Date Duration S tatus ProAir HFA 108 (90 Base) MCG/ACT Inhalation every 6 hrs 2 puffs as needed 6h Apr, Active RESULTS No Results [...]
--- OUTSIDE RECORDS SUMMARY | 2020-03-14 17:26 | XMS REPORT | Continuity of Care Document ---
Author Organization Unknown Address Unknown Phone Unavailable Allergies Active Description Code Type Severity Reaction Onset Reported/Identified Relationship to Patient Clinical Status Yes AMOXICILLIN UNKNOWN UNKNOWN Yes ATENOLOL UNKNOWN UNKNOWN Yes CLIMARA UNKNOWN UNKNOWN Yes CLINDAMYCIN PHOSPHATE (BULK) UNKNOWN UNKNOWN Yes CODEINE SULFATE U NKNOWN UNKNOWN Yes DEPAKOTE UNKNOWN UNKNOWN Yes ESTRADIOL UNKNOWN UNKNOWN Yes HYCOFENIX UNKNOWN UNKNOWN Yes LITHIUM CARBONATE (BULK) UNKNOWN UNKNOWN Yes MACROBID UNKNOWN UNKNOWN Yes NITROFURANTOIN UN KNOWN UNKNOWN Yes OTHER UNKNOWN UNKNOWN Yes PROMETHAZINE UNKNOWN UNKNOWN Yes SULFA (SULFONAMIDE ANTIBIOTICS) UNKNOWN UNKNOWN Yes VALPROIC ACID UNKNOWN UNKNOWN Yes ZITHROMAX UNKNOWN UNKNOWN Yes latex [id number] Drug Allergy Mild RASH 10/14/2017 Yes amoxicillin [id number] Drug Aller gy Unknown N/A 10/14/2017 Yes atenolol [id number] Drug Allergy Unknown N/A 10/14/2017 Yes azithromycin [id number] Drug Allergy Unknown N/A 10/14/2017 Yes cephalexin [id number] Drug Allerg y Unknown N/A 10/14/2017 Yes chocolate flavor [id number] Drug Allergy Unknown N/A 10/14/2017 Yes clindamycin [id number] Drug Aller gy Unknown N/A 10/14/2017 Yes codeine [id number] Drug Allergy Unknown N/A 10/14/2017 Yes dextromethorphan [id number] Drug Allergy Unknown N/A 10/14/2017 Yes divalproex sodium [id number] Drug Allergy Unknown N/A 10/14/2017 Yes estradiol [id number] Drug Allergy Unknown N/A 10/14/2017 Yes guaifenesin [id number] Drug Aller gy Unknown N/A 10/14/2017 Yes levofloxacin [id number] Drug Allergy Unknown N/A 10/14/[id number] ug Allergy Unknown N/A 10/14/2017 Yes promethazine [id number] Drug Allergy Unknown N/A 10/14/2017 Yes pseudoephedrine [id number] D rug Allergy Unknown N/A 10/14/2017 Yes Sulfa (Sulfonamide Antibiotics) [id number] Drug Allergy Unknown N/A 018 Yes tetracycline [id number] Drug Allergy Unknown N/A 10/14/2017 Yes codeine [id number] Drug Allergy Unknown Pt has received 10/19/2017 Medications There is no data. Problems Date Dx Coded Attending Type Code Diagnosis Diagnosed By 01/31/2006 Ot 789.00 01/31/2006 Ot V57.1 11/06/2007 Ot 786.09 01/08/2008 Ot 724.2 01/08/2008 Ot V57.1 05/02/2008 Ot V58.81 05/16/2008 LISA BEE PHD 296.90 UNSPECIFIED EPISODIC MOOD DISORDER 05/16/2008 LISA BEE PHD 298.9 P PSYCHOSIS NOS 05/16/2008 LISA BEE PHD 300.00 AN ANXIETY UNSPEC 07/24/2008 LISA BEE PHD 307.47 SI DYSSOMNIA NOS 07/24/2008 LISA BEE PHD 312.30 I IMPULSE CONTROL DISORDER NOS 08/04/2008 Ot V58.81 08/30/2008 Ot 327.26 09/09/2008 Ot 278.00 09/09/2008 Ot 728.87 09/09/2008 Ot 781.3 09/09/2008 Ot V57.1 12/03/2008 Ot 278.00 12/03/2008 Ot 799.02 12/03/2008 Ot V58.69 01/21/2009 Ot V58.81 04/22/2009 Ot V58.81 04/30/2009 LISA BEE PHD 296.32 MO DEPRESSIVE RECURRENT MODERATE 04/30/2009 LISA BEE PHD 309.81 AN PTSD 08/10/2009 Ot 782.0 SKIN SENSATION DISTURB 08/10/2009 Ot V58.81 FIT /ADJ VASCULAR CATHETER 10/25/2009 Ot 486 PNEUMO NIGEL, ORGANISM NOS 10/25/2009 Ot 786.2 11/16/2009 Ot V58.81 FIT /ADJ VASCULAR CATHETER 03/17/2010 Ot 278.00 OBE SITY, NOS 03/17/2010 Ot 780.79 OTH MALAISE FATIGUE 03/17/2010 Ot 789.00 ABD OMINAL PAIN, UNSPECIFIED SITE 03/17/2010 Ot V58.81 FIT /ADJ VASCULAR CATHETER 04/03/2010 Ot 787.91 MELINDA RRHEA 04/29/2010 Ot 924.11 CON TUSION OF KNEE 04/29/2010 Ot 959.7 LOWE R LEG INJURY NOS 04/29/2010 Ot E000.8 OTH ER EXTERNAL CAUSE STATUS 04/29/2010 Ot E849.[address] NEC 04/29/2010 Ot E885.9 FAL L FROM SLIPPING, TRIPPING, OR STUMBLI 07/10/2010 Ot 724.2 LUMBAGO 07/10/2010 Ot V57.1 PHYS ICAL THERAPY NEC 07/20/2010 Ot 564.1 IRRI TABLE BOWEL SYNDROME 07/20/2010 Ot 789.09 ABD OMINAL PAIN, OTHER SPECIFIED SITE 07/20/2010 Ot 791.9 ABN URINE FINDINGS NEC 08/17/2010 Ot 278.00 OBE SITY, NOS 08/17/2010 Ot 285.9 ANEM IA NOS 08/17/2010 Ot 311 DEPRES SIVE DISORDER NEC 08/17/2010 Ot 780.79 OTH MALAISE FATIGUE 08/17/2010 Ot 789.00 ABD OMINAL PAIN, UNSPECIFIED SITE 08/17/2010 Ot V15.88 HIS TORY OF FALL 08/17/2010 Ot V58.61 ANTICOAGULANTS,LT,CURRENT USE 08/17/2010 Ot V58.69 OTH MED,LT,CURRENT USE 08/17/2010 Ot V58.81 FIT /ADJ VASCULAR CATHETER 11/23/2010 Ot 278.00 OBE SITY, NOS 11/23/2010 Ot 285.9 ANEM IA NOS 11/23/2010 Ot 311 DEPRES SIVE DISORDER NEC 11/23/2010 Ot 780.79 OTH MALAISE FATIGUE 11/23/2010 Ot 789.00 ABD OMINAL PAIN, UNSPECIFIED SITE 11/23/2010 Ot V15.88 HIS TORY OF FALL 11/23/2010 Ot V58.61 ANTICOAGULANTS,LT,CURRENT USE 11/23/2010 Ot V58.69 OTH MED,LT,CURRENT USE 11/23/2010 Ot V58.81 FIT /ADJ VASCULAR CATHETER 02/22/2011 Ot 278.00 OBE SITY, NOS 02/22/2011 Ot 285.9 ANEM IA NOS 02/22/2011 Ot 311 DEPRES SIVE DISORDER NEC 02/22/2011 Ot 780.79 OTH MALAISE FATIGUE 02/22/2011 Ot 789.00 ABD OMINAL PAIN, UNSPECIFIED SITE 02/22/2011 Ot V15.88 HIS TORY OF FALL 02/22/2011 Ot V58.61 ANTICOAGULANTS,LT,CURRENT USE 02/22/2011 Ot V58.69 OTH MED,LT,CURRENT USE 02/22/2011 Ot V58.81 FIT /ADJ VASCULAR CATHETER 03/04/2011 Ot 873.42 OPE N WOUND OF FOREHEAD 03/04/2011 Ot E000.8 OTH ER EXTERNAL CAUSE STATUS 03/04/2011 Ot E013.9 OTH ER HOUSEHOLD MAINTENANCE 03/04/2011 Ot E849.0 ACC IDENT IN HOME 03/04/2011 Ot E917.9 STR UCK BY OBJ/PERSON NEC 05/26/2011 Ot 278.00 OBE SITY, NOS 05/26/2011 Ot 285.9 ANEM IA NOS 05/26/2011 Ot 311 DEPRES SIVE DISORDER NEC 05/26/2011 Ot 780.79 OTH MALAISE FATIGUE 05/26/2011 Ot 789.00 ABD OMINAL PAIN, UNSPECIFIED SITE 05/26/2011 Ot V15.88 HIS TORY OF FALL 05/26/2011 Ot V58.61 ANTICOAGULANTS,LT,CURRENT USE 05/26/2011 Ot V58.69 OTH MED,LT,CURRENT USE 05/26/2011 Ot V58.81 FIT /ADJ VASCULAR CATHETER 07/26/2011 Ot 891.0 OPEN WND KNEE/LEG/ANKLE 07/26/2011 Ot E000.8 OTH ER EXTERNAL CAUSE STATUS 07/26/2011 Ot E849.0 ACC IDENT IN HOME 07/26/2011 Ot E885.9 FAL L FROM SLIPPING, TRIPPING, OR STUMBLI 09/28/2011 Ot 278.00 OBE SITY, NOS 09/28/2011 Ot 285.9 ANEM IA NOS 09/28/2011 Ot 311 DEPRES SIVE DISORDER NEC 09/28/2011 Ot 780.79 OTH MALAISE FATIGUE 09/28/2011 Ot 789.00 ABD OMINAL PAIN, UNSPECIFIED SITE 09/28/2011 Ot V15.88 HIS TORY OF FALL 09/28/2011 Ot V58.61 ANTICOAGULANTS,LT,CURRENT USE 09/28/2011 Ot V58.69 OTH MED,LT,CURRENT USE 09/28/2011 Ot V58.81 FIT /ADJ VASCULAR CATHETER 01/25/2012 Ot 278.00 OBE SITY, NOS 01/25/2012 Ot 285.9 ANEM IA NOS 01/25/2012 Ot 311 DEPRES SIVE DISORDER NEC 01/25/2012 Ot 780.79 OTH MALAISE FATIGUE 01/25/2012 Ot 789.00 ABD OMINAL PAIN, UNSPECIFIED SITE 01/25/2012 Ot V15.88 HIS TORY OF FALL 01/25/2012 Ot V58.61 ANTICOAGULANTS,LT,CURRENT USE 01/25/2012 Ot V58.69 OTH MED,LT,CURRENT USE 01/25/2012 Ot V58.81 FIT /ADJ VASCULAR CATHETER 05/22/2012 Ot 278.00 OBE SITY, NOS 05/22/2012 Ot 285.9 ANEM IA NOS 05/22/2012 Ot 311 DEPRES SIVE DISORDER NEC 05/22/2012 Ot 780.79 OTH MALAISE FATIGUE 05/22/2012 Ot 789.00 ABD OMINAL PAIN, UNSPECIFIED SITE 05/22/2012 Ot V15.88 HIS TORY OF FALL 05/22/2012 Ot V58.61 ANTICOAGULANTS,LT,CURRENT USE 05/22/2012 Ot V58.69 OTH MED,LT,CURRENT USE 05/22/2012 Ot V58.81 FIT /ADJ VASCULAR CATHETER 09/26/2012 Ot 278.00 OBE SITY, NOS 09/26/2012 Ot 285.9 ANEM IA NOS 09/26/2012 Ot 311 DEPRES SIVE DISORDER NEC 09/26/2012 Ot 780.79 OTH MALAISE FATIGUE 09/26/2012 Ot 789.00 ABD OMINAL PAIN, UNSPECIFIED SITE 09/26/2012 Ot V15.88 HIS TORY OF FALL 09/26/2012 Ot V58.61 ANTICOAGULANTS,LT,CURRENT USE 09/26/2012 Ot V58.69 OT MED,LT,CURRENT USE 09/26/2012 Ot V58.81 FIT /ADJ VASCULAR CATHETER 05/22/2013 ARAMIS RUBIO Ot 825.25 FX METATARSAL-CLOSED 05/22/2013 ARAIMS RUBIO Ot 959.7 LOWER LEG INJURY NOS 05/22/2013 ARAMIS RUBIO Ot E000.8 OTHER EXTERNAL CAUSE STATUS 05/22/2013 ARAMIS RUBIO Ot E849.0 ACCIDENT IN HOME 05/22/2013 ARAMIS RUBIO Ot E883.9 FALL INTO OTHER HOLE 01/30/2014 CRISTAL PHD, LISA Bah 294.9 OR COG DIS NOS 04/19/2014 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 Ot 345.90 EPILEPSY UNSPEC W/O MENTION INTRACTABLE 04/19/2014 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 Ot 924 .9 CONTUSION NOS 04/19/2014 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 Ot E000.8 OTHER EXTERNAL CAUSE STATUS 04/19/2014 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 Ot E002.0 ACTIVITIES INVOLVING SWIMMING 04/19/2014 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 Ot E849.4 ACCID IN RECREATION AREA 04/19/2014 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 Ot E888.1 FALL STRIKING OBJECT NEC 04/19/2014 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 Ot E888.9 FALL NOS 11/04/2014 GILDARDO ROSENTHAL MD Ot 272 .0 11/04/2014 GILDARDO ROSENTHAL MD Ot 278.00 11/04/2014 GILDARDO ROSENTHAL MD Ot 790 .6 11/04/2014 GILDARDO ROSENTHAL MD Ot 799.02 11/08/2014 GILDARDO ROSENTHAL MD Ot 272 .0 11/08/2014 GILDARDO ROSENTHAL MD Ot 278.00 11/08/2014 GILDARDO ROSENTHAL MD Ot 790 .6 11/08/2014 GILDARDO ROSENTHAL MD Ot 799.02 03/24/2015 GILDARDO ROSENTHAL MD Ot 786.50 04/02/2015 GILDARDO ROSENTHAL MD Ot 786.50 10/22/2015 MARGO FRANCISCO MD, Ot K21.0 GASTRO-ESOPHAGEAL REFLUX DISEASE WITH ES 10/22/2015 MARGO FRANCISCO MD, Ot K29.70 GASTRITIS, UNSPECIFIED, WITHOUT BLEEDING 01/29/2016 LIS HERNÁNDEZ ARAMIS Lelia Ot S01.01XA LACERATION WITHOUT FOREIGN BODY OF SCALP 01/29/2016 LIS HERNÁNDEZARAMIS Lelia Ot W18.30XA FALL ON SAME LEVEL, UNSPECIFIED, INITIAL 01/29/2016 LIS HERNÁNDEZARAMIS Lelia Ot Y92.[address] IN SINGLE-FAMILY (PRIVATE) HO 01/29/2016 LIS HERNÁNDEZ ARAMIS Lelia Ot Y99.8 OTHER EXTERNAL CAUSE STATUS 01/29/2016 LIS HERNÁNDEZ ARAMIS L Ot Z 23 ENCOUNTER FOR IMMUNIZATION 01/30/2016 LIS HERNÁNDEZ ARAMIS Lelia Ot S01.01XA LACERATION WITHOUT FOREIGN BODY OF SCALP 01/30/2016 LIS HERNÁNDEZARAMIS Lelia Ot W18.30XA FALL ON SAME LEVEL, UNSPECIFIED, INITIAL 01/30/2016 LIS HERNÁNDEZ ARAMIS Lelia Ot Y92.[address] IN SINGLE-FAMILY (PRIVATE) HO 01/30/2016 ARAMIS RUBOI Ot Y99.8 OTHER EXTERNAL CAUSE STATUS 01/30/2016 ARAMIS RUBIO Ot Z 23 ENCOUNTER FOR IMMUNIZATION 03/19/2016 Ot 780.39 OTH ER CONVULSIONS 03/19/2016 Ot V58.69 OTH MED,LT,CURRENT USE 03/19/2016 Ot 285.9 ANEM IA NOS 03/19/2016 Ot 311 DEPRES SIVE DISORDER NEC 03/19/2016 Ot V58.69 OTH MED,LT,CURRENT USE 03/19/2016 Ot 785.1 PALP ITATIONS 03/19/2016 Ot V58.69 OTH MED,LT,CURRENT USE 03/19/2016 Ot 780.39 OTH ER CONVULSIONS 03/19/2016 Ot 783.21 LOS S OF WEIGHT 03/19/2016 Ot V58.69 OTH MED,LT,CURRENT USE 03/19/2016 Ot 285.9 ANEM IA NOS 03/19/2016 Ot 311 DEPRES SIVE DISORDER NEC 03/19/2016 Ot V58.69 OTH MED,LT,CURRENT USE 03/19/2016 Ot 719.46 EDMOND NT PAIN-L/LEG 03/19/2016 Ot 959.7 LOWE R LEG INJURY NOS 03/19/2016 Ot E000.8 OTH ER EXTERNAL CAUSE STATUS 03/19/2016 Ot E849.6 ACC IDENT IN PUBLIC BLDG 03/19/2016 Ot E888.9 FAL L NOS 03/19/2016 Ot 278.00 OBE SITY, NOS 03/19/2016 Ot 285.9 ANEM IA NOS 03/19/2016 Ot 311 DEPRES SIVE DISORDER NEC 03/19/2016 Ot 780.79 OTH MALAISE FATIGUE 03/19/2016 Ot 789.00 ABD OMINAL PAIN, UNSPECIFIED SITE 03/19/2016 Ot V15.88 HIS TORY OF FALL 03/19/2016 Ot V58.61 ANTICOAGULANTS,LT,CURRENT USE 03/19/2016 Ot V58.69 OTH MED,LT,CURRENT USE 03/19/2016 Ot V58.81 FIT /ADJ VASCULAR CATHETER 03/19/2016 GILDARDO ROSENTHAL MD Ot 786.50 CHEST PAIN NOS 03/19/2016 Ot K21.9 MONTSERRAT RO-ESOPHAGEAL REFLUX DISEASE WITHOUT 03/19/2016 Ot Z01.818 EN COUNTER FOR OTHER PREPROCEDURAL EXAMIN 03/19/2016 GILDARDO ROSENTHAL [...] M51.34 OTHER INTERVERTEBRAL DISC DEGENERATION, 06/15/2016 GILDARDO ROSENTHAL MD Ot M51.35 OTHER INTERVERTEBRAL DISC DEGENERATION, 06/15/2016 GILDARDO ROSENTHAL MD Ot M54 .5 LOW BACK PAIN 06/22/2016 Gildardo Rosenthal 724.2 LUMBAGO 06/22/2016 Gildardo Rosenthal M54.5 LOW BACK PAIN 07/02/2016 GILDARDO ROSENTHAL MD Ot M51.34 OTHER INTERVERTEBRAL DISC DEGENERATION, 07/02/2016 GILDARDO ROSENTHAL MD Ot M51.35 OTHER INTERVERTEBRAL DISC DEGENERATION, 07/02/2016 GILDARDO ROSENTHAL MD Ot M54 .5 LOW BACK PAIN 07/09/2016 GILDARDO ROSENTHAL MD Ot M51.34 OTHER INTERVERTEBRAL DISC DEGENERATION, 07/09/2016 GILDARDO ROSENTHAL MD Ot M51.35 OTHER INTERVERTEBRAL DISC DEGENERATION, 07/09/2016 GILDARDO ROSENTHAL MD Ot M54 .5 LOW BACK PAIN 07/27/2016 Ot 486 PNEUMO NIGEL, ORGANISM NOS 07/27/2016 Ot 786.2 10/27/2016 Ot V58.81 10/27/2016 Ot 486 PNEUMO NIGEL, ORGANISM NOS 10/27/2016 Ot 786.2 11/14/2016 VINCENT GOMEZ MD Ot S09.90XA UNSPECIFIED INJURY OF HEAD, INITIAL ENCO 11/14/2016 VINCENT GOMEZ MD Ot W20.8XXA OTH CAUSE OF STRIKE BY THROWN, PROJECTED 11/14/2016 VINCENT GOMEZ MD Ot Y99.8 OTHER EXTERNAL CAUSE STATUS 11/14/2016 Ot 783.21 LOS S OF WEIGHT 11/14/2016 Ot V58.69 OTH MED,LT,CURRENT USE 11/14/2016 Ot 285.9 ANEM IA NOS 11/14/2016 Ot 311 DEPRES SIVE DISORDER NEC 11/14/2016 Ot V58.69 OTH MED,LT,CURRENT USE 11/14/2016 Ot 719.46 EDMOND NT PAIN-L/LEG 11/14/2016 Ot 959.7 LOWE R LEG INJURY NOS 11/14/2016 Ot E000.8 OTH ER EXTERNAL CAUSE STATUS 11/14/2016 Ot E849.6 ACC IDENT IN PUBLIC BLDG 11/14/2016 Ot E888.9 FAL L NOS 11/14/2016 Ot 278.00 OBE SITY, NOS 11/14/2016 Ot 285.9 ANEM IA NOS 11/14/2016 Ot 311 DEPRES SIVE DISORDER NEC 11/14/2016 Ot 780.79 OTH MALAISE FATIGUE 11/14/2016 Ot 789.00 ABD OMINAL PAIN, UNSPECIFIED SITE 11/14/2016 Ot V15.88 HIS TORY OF FALL 11/14/2016 Ot V58.61 ANTICOAGULANTS,LT,CURRENT USE 11/14/2016 Ot V58.69 OTH MED,LT,CURRENT USE 11/14/2016 Ot V58.81 FIT /ADJ VASCULAR CATHETER 11/14/2016 CINDY GUADALUPE FACC, ALI FACP CCDS Ot 786.50 CHEST PAIN NOS 11/14/2016 GILDARDO ROSENTHAL MD Ot 786 .2 COUGH 11/14/2016 GILDARDO ROSENTHAL MD Ot 789.00 ABDOMINAL PAIN, UNSPECIFIED SITE 11/14/2016 GILDARDO ROSENTHAL MD Ot 789.02 ABDOMINAL PAIN, LEFT UPPER QUADRANT 11/14/2016 GILDARDO ROSENTHAL MD Ot 789 .2 SPLENOMEGALY 11/14/2016 GILDARDO ROSENTHAL MD Ot 272 .0 PURE HYPERCHOLESTEROLEM 11/14/2016 GILDARDO ROSENTHAL MD Ot 278.00 OBESITY, NOS 11/14/2016 GILDARDO ROSENTHAL MD Ot 790 .6 ABN BLOOD CHEMISTRY NEC 11/14/2016 GILDARDO ROSENTHAL MD Ot 799.02 HYPOXEMIA 11/14/2016 GILDARDO ROSENTHAL MD Ot 786.50 CHEST PAIN NOS 11/14/2016 Ot K21.9 MONTSERRAT RO-ESOPHAGEAL REFLUX DISEASE WITHOUT 11/14/2016 Ot Z01.818 EN COUNTER FOR OTHER PREPROCEDURAL EXAMIN 11/14/2016 GILDARDO ROSENTHAL MD Ot M25.561 PAIN IN RIGHT KNEE 11/14/2016 GILDARDO ROSENTHAL MD Ot M25.511 PAIN IN RIGHT SHOULDER 11/14/2016 GILDARDO ROSENTHAL MD Ot M25.561 PAIN IN RIGHT KNEE 11/14/2016 MIKE PINTO MD Ot R32 UNSPECIFIED URINARY INCONTINENCE 11/14/2016 IMKE PINTO MD Ot R35.0 FREQUENCY OF MICTURITION 11/14/2016 GILDARDO ROSENTHAL MD Ot M51.34 OTHER INTERVERTEBRAL DISC DEGENERATION, 11/14/2016 GILDARDO ROSENTHAL MD Ot M51.35 OTHER INTERVERTEBRAL DISC DEGENERATION, 11/14/2016 GILDARDO ROSENTHAL MD Ot M54 .5 LOW BACK PAIN 11/14/2016 Ot 783.21 LOS S OF WEIGHT 11/14/2016 Ot V58.69 OTH MED,LT,CURRENT USE 11/14/2016 Ot 285.9 ANEM IA NOS 11/14/2016 Ot 311 DEPRES SIVE DISORDER NEC 11/14/2016 Ot V58.69 OTH MED,LT,CURRENT USE 11/14/2016 Ot 719.46 EDMOND NT PAIN-L/LEG 11/14/2016 Ot 959.7 LOWE R LEG INJURY NOS 11/14/2016 Ot E000.8 OTH ER EXTERNAL CAUSE STATUS 11/14/2016 Ot E849.6 ACC IDENT IN PUBLIC BLDG 11/14/2016 Ot E888.9 FAL L NOS 11/14/2016 Ot 278.00 OBE SITY, NOS 11/14/2016 Ot 285.9 ANEM IA NOS 11/14/2016 Ot 311 DEPRES SIVE DISORDER NEC 11/14/2016 Ot 780.79 OTH MALAISE FATIGUE 11/14/2016 Ot 789.00 ABD OMINAL PAIN, UNSPECIFIED SITE 11/14/2016 Ot V15.88 HIS TORY OF FALL 11/14/2016 Ot V58.61 ANTICOAGULANTS,LT,CURRENT USE 11/14/2016 Ot V58.69 OTH MED,LT,CURRENT USE 11/14/2016 Ot V58.81 FIT /ADJ VASCULAR CATHETER 11/14/2016 CINDY GUADALUPE FACC, ALI FACP CCDS Ot 786.50 CHEST PAIN NOS 11/14/2016 GILDARDO ROSENTHAL MD Ot 786 .2 COUGH 11/14/2016 GILDARDO ROSENTHAL MD Ot 789.00 ABDOMINAL PAIN, UNSPECIFIED SITE 11/14/2016 GILDARDO ROSENTHAL MD Ot 789.02 ABDOMINAL PAIN, LEFT UPPER QUADRANT 11/14/2016 GILDARDO ROSENTHAL MD Ot 789 .2 SPLENOMEGALY 11/14/2016 GILDARDO ROSENTHAL MD Ot 272 .0 PURE HYPERCHOLESTEROLEM 11/14/2016 GILDARDO ROSENTHAL MD Ot 278.00 OBESITY, NOS 11/14/2016 GILDARDO ROSENTHAL MD Ot 790 .6 ABN BLOOD CHEMISTRY NEC 11/14/2016 GILDARDO ROSENTHAL MD Ot 799.02 HYPOXEMIA 11/14/2016 BROWN MD, GILDARDO K Ot 786.50 CHEST PAIN NOS 11/14/2016 Ot K21.9 MONTSERRAT RO-ESOPHAGEAL REFLUX DISEASE WITHOUT 11/14/2016 Ot Z01.818 EN COUNTER FOR OTHER PREPROCEDURAL EXAMIN 11/14/2016 GILDARDO ROSENTHAL [...] Ot M51.35 OTHER INTERVERTEBRAL DISC DEGENERATION, 11/14/2016 GLIDARDO ROSENTHAL MD Ot M54 .5 LOW BACK PAIN 11/16/2016 VINCENT GOMEZ MD Ot S09.90XA UNSPECIFIED INJURY OF HEAD, INITIAL ENCO 11/16/2016 VINCENT GOMEZ MD Ot W20.8XXA OTH CAUSE OF STRIKE BY THROWN, PROJECTED 11/16/2016 VINCENT GOMEZ MD Ot Y99.8 OTHER EXTERNAL CAUSE STATUS 11/24/2016 Ot 486 PNEUMO NIGEL, ORGANISM NOS 11/24/2016 Ot 786.2 11/24/2016 Ot 783.21 LOS S OF WEIGHT 11/24/2016 Ot V58.69 OTH MED,LT,CURRENT USE 11/24/2016 Ot 285.9 ANEM IA NOS 11/24/2016 Ot 311 DEPRES SIVE DISORDER NEC 11/24/2016 Ot V58.69 OTH MED,LT,CURRENT USE 11/24/2016 Ot 719.46 EDMOND NT PAIN-L/LEG 11/24/2016 Ot 959.7 LOWE R LEG INJURY NOS 11/24/2016 Ot E000.8 OTH ER EXTERNAL CAUSE STATUS 11/24/2016 Ot E849.6 ACC IDENT IN PUBLIC BLDG 11/24/2016 Ot E888.9 FAL L NOS 11/24/2016 Ot 278.00 OBE SITY, NOS 11/24/2016 Ot 285.9 ANEM IA NOS 11/24/2016 Ot 311 DEPRES SIVE DISORDER NEC 11/24/2016 Ot 780.79 OTH MALAISE FATIGUE 11/24/2016 Ot 789.00 ABD OMINAL PAIN, UNSPECIFIED SITE 11/24/2016 Ot V15.88 HIS TORY OF FALL 11/24/2016 Ot V58.61 ANTICOAGULANTS,LT,CURRENT USE 11/24/2016 Ot V58.69 OTH MED,LT,CURRENT USE 11/24/2016 Ot V58.81 FIT /ADJ VASCULAR CATHETER 11/24/2016 CINDY GUADALUPE FACC, ALI FACP CCDS Ot 786.50 CHEST PAIN NOS 11/24/2016 GILDARDO ROSENTHAL MD Ot 786 .2 COUGH 11/24/2016 GILDARDO ROSENTHAL MD Ot 789.00 ABDOMINAL PAIN, UNSPECIFIED SITE 11/24/2016 GILDARDO ROSENTHAL MD Ot 789.02 ABDOMINAL PAIN, LEFT UPPER QUADRANT 11/24/2016 GILDARDO ROSENTHAL MD Ot 789 .2 SPLENOMEGALY 11/24/2016 GILDARDO ROSENTHAL MD Ot 272 .0 PURE HYPERCHOLESTEROLEM 11/24/2016 GILDARDO ROSENTHAL MD Ot 278.00 OBESITY, NOS 11/24/2016 GILDARDO ROSENTHAL MD Ot 790 .6 ABN BLOOD CHEMISTRY NEC 11/24/2016 GILDARDO ROSENTHAL MD Ot 799.02 HYPOXEMIA 11/24/2016 GILDARDO ROSENTHAL MD Ot 786.50 CHEST PAIN NOS 11/24/2016 Ot K21.9 MONTSERRAT RO-ESOPHAGEAL REFLUX DISEASE WITHOUT 11/24/2016 Ot Z01.818 EN COUNTER FOR OTHER PREPROCEDURAL EXAMIN 11/24/2016 GILDARDO ROSENTHAL [...] DISC DEGENERATION, 11/24/2016 GILDARDO ROSENTHAL MD Ot M54 .5 LOW BACK PAIN 11/30/2016 BRISEIDA CIFUENTES PEYMAN Ot M25.512 PAIN IN LEFT SHOULDER 12/16/2016 BRISEIDA CIFUENTES PEYMAN Ot M25.512 PAIN IN LEFT SHOULDER 12/20/[address] PEYMAN Ot M25.512 PAIN IN LEFT SHOULDER 01/21/2017 GILDARDO ROSENTHAL MD Ot Z12.31 ENCNTR SCREEN MAMMOGRAM FOR MALIGNANT NE 02/14/2017 GILDARDO ROSENTHAL MD Ot Z12.31 ENCNTR SCREEN MAMMOGRAM FOR MALIGNANT NE 02/15/2017 GILDARDO ROSENTHAL MD Ot N64.89 OTHER SPECIFIED DISORDERS OF BREAST 02/15/2017 GILDARDO ROSENTHAL MD Ot Z12.31 ENCNTR SCREEN MAMMOGRAM FOR MALIGNANT NE 02/16/2017 IGLDARDO ROSENTHAL MD Ot N64.89 OTHER SPECIFIED DISORDERS OF BREAST 02/16/2017 GILDARDO ROSENTHAL MD Ot N64.89 OTHER SPECIFIED DISORDERS OF BREAST 02/16/2017 GILDARDO ROSENTHAL MD Ot N64.89 OTHER SPECIFIED DISORDERS OF BREAST 02/16/2017 Ot 285.9 ANEM IA NOS 02/16/2017 Ot 311 DEPRES SIVE DISORDER NEC 02/16/2017 Ot V58.69 OTH MED,LT,CURRENT USE 02/16/2017 Ot 719.46 EDMOND NT PAIN-L/LEG 02/16/2017 Ot 959.7 LOWE R LEG INJURY NOS 02/16/2017 Ot E000.8 OTH ER EXTERNAL CAUSE STATUS 02/16/2017 Ot E849.6 ACC IDENT IN PUBLIC BLDG 02/16/2017 Ot E888.9 FAL L NOS 02/16/2017 Ot 278.00 OBE SITY, NOS 02/16/2017 Ot 285.9 ANEM IA NOS 02/16/2017 Ot 311 DEPRES SIVE DISORDER NEC 02/16/2017 Ot 780.79 OTH MALAISE FATIGUE 02/16/2017 Ot 789.00 ABD OMINAL PAIN, UNSPECIFIED SITE 02/16/2017 Ot V15.88 HIS TORY OF FALL 02/16/2017 Ot V58.61 ANTICOAGULANTS,LT,CURRENT USE 02/16/2017 Ot V58.69 OTH MED,LT,CURRENT USE 02/16/2017 Ot V58.81 FIT /ADJ VASCULAR CATHETER 02/16/2017 CINDY GUADALUPE FACC, ALI FACP CCDS Ot 786.50 CHEST PAIN NOS 02/16/2017 GILDARDO ROSENTHAL MD Ot 786 .2 COUGH 02/16/2017 GILDARDO ROSENTHAL MD Ot 789.00 ABDOMINAL PAIN, UNSPECIFIED SITE 02/16/2017 GILDARDO ROSENTHAL MD Ot 789.02 ABDOMINAL PAIN, LEFT UPPER QUADRANT 02/16/2017 GILDARDO ROSENTHAL MD Ot 789 .2 SPLENOMEGALY 02/16/2017 GILDARDO ROSENTHAL MD Ot 272 .0 PURE HYPERCHOLESTEROLEM 02/16/2017 GILDARDO ROSENTHAL MD Ot 278.00 OBESITY, NOS 02/16/2017 GILDARDO ROSENTHAL MD Ot 790 .6 ABN BLOOD CHEMISTRY NEC 02/16/2017 GILDARDO ROSENTHAL MD Ot 799.02 HYPOXEMIA 02/16/2017 GILDARDO ROSENTHAL MD Ot 786.50 CHEST PAIN NOS 02/16/2017 Ot K21.9 [place] RO-ESOPHAGEAL REFLUX DISEASE WITHOUT 02/16/2017 Ot Z01.818 EN COUNTER FOR OTHER PREPROCEDURAL EXAMIN 02/16/2017 GILDARDO ROSENTHAL MD Ot M25.561 PAIN IN RIGHT KNEE 02/16/2017 GILDARDO ROSENTHAL MD Ot M25.511 PAIN IN RIGHT SHOULDER 02/16/2017 GILDARDO ROSENTHAL MD Ot M25.561 PAIN IN RIGHT KNEE 02/16/2017 MILLIE GUADALUPE, MIKE Adams Ot R32 UNSPECIFIED URINARY INCONTINENCE 02/16/2017 MIKE PINTO MD Ot R35.0 FREQUENCY OF MICTURITION 02/16/2017 GILDARDO ROSENTHAL MD Ot M51.34 OTHER INTERVERTEBRAL DISC DEGENERATION, 02/16/2017 GILDARDO ROSENTHAL MD Ot M51.35 OTHER INTERVERTEBRAL DISC DEGENERATION, 02/16/2017 GILDARDO ROSENTHAL MD Ot M54 .5 LOW BACK PAIN 02/16/2017 BRISEIDA CIFUENTES BROADCAST TRAFFIC COORDINATOR Ot M25.512 PAIN IN LEFT SHOULDER 02/16/2017 GILDARDO ROSENTHAL MD Ot Z12.31 ENCNTR SCREEN MAMMOGRAM FOR MALIGNANT NE 02/16/2017 GILDARDO ROSENTHAL MD Ot N64.89 OTHER SPECIFIED DISORDERS OF BREAST 02/17/2017 GILDARDO ROSENTHAL MD Ot N64.89 OTHER SPECIFIED DISORDERS OF BREAST 02/17/2017 GILDARDO ROSENTHAL MD Ot Z45 .2 ENCOUNTER FOR ADJUSTMENT AND MANAGEMENT 03/09/2017 GILDARDO ROSENTHAL MD Ot N64.89 OTHER SPECIFIED DISORDERS OF BREAST 03/15/2017 GILDARDO ROSENTHAL MD Ot N64.89 OTHER SPECIFIED DISORDERS OF BREAST 05/17/2017 GILDARDO ROSENTHAL MD Ot N64.89 OTHER SPECIFIED DISORDERS OF BREAST 05/17/2017 GILDARDO ROSENTHAL MD Ot Z45 .2 ENCOUNTER FOR ADJUSTMENT AND MANAGEMENT 07/22/2017 W 307.81 TEN ZA HEADACHE 07/22/2017 W 345.80 OTH ER FORMS OF EPILEPSY AND RECURRENT SEIZURES, WITHOUT MENTION OF INTRACTABLE EPILEPSY 07/22/2017 W 530.81 ESO PHAGEAL REFLUX 07/22/2017 W G40.89 OTH ER SEIZURES 07/22/2017 W G44.209 TE NSION-TYPE HEADACHE, UNSPECIFIED, NOT INTRACTABLE 07/22/2017 W K21.0 [place] RO-ESOPHAGEAL REFLUX DISEASE WITH ESOPHAGITIS 08/10/2017 GILDARDO ROSENTHAL MD Ot G47.33 OBSTRUCTIVE SLEEP APNEA (ADULT) (PEDIATR 08/10/2017 GILDARDO ROSENTHAL MD Ot G47.33 OBSTRUCTIVE SLEEP APNEA (ADULT) (PEDIATR 08/10/2017 Ot 278.00 OBE SITY, NOS 08/10/2017 Ot 285.9 ANEM IA NOS 08/10/2017 Ot 311 DEPRES SIVE DISORDER NEC 08/10/2017 Ot 780.79 OTH MALAISE FATIGUE 08/10/2017 Ot 789.00 ABD OMINAL PAIN, UNSPECIFIED SITE 08/10/2017 Ot V15.88 HIS TORY OF FALL 08/10/2017 Ot V58.61 ANTICOAGULANTS,LT,CURRENT USE 08/10/2017 Ot V58.69 OTH MED,LT,CURRENT USE 08/10/2017 Ot V58.81 FIT /ADJ VASCULAR CATHETER 08/10/2017 GILDARDO ROSENTHAL MD Ot 786.50 CHEST PAIN NOS 08/10/2017 Ot K21.9 [place] RO-ESOPHAGEAL REFLUX DISEASE WITHOUT 08/10/2017 Ot Z01.818 EN COUNTER FOR OTHER PREPROCEDURAL EXAMIN 08/10/2017 GILDARDO ROSENTHAL MD Ot M25.561 PAIN IN RIGHT KNEE 08/10/2017 GILDARDO ROSENTHAL MD Ot M25.511 PAIN IN RIGHT SHOULDER 08/10/2017 GILDARDO ROSENTHAL MD Ot M25.561 PAIN IN RIGHT KNEE 08/10/2017 MIKE PINTO MD Ot R32 UNSPECIFIED URINARY INCONTINENCE 08/10/2017 MILLIE GUADALUPE, MIKE Adams Ot R35.0 FREQUENCY OF MICTURITION 08/10/2017 GILDARDO ROSENTHAL MD Ot M51.34 OTHER INTERVERTEBRAL DISC DEGENERATION, 08/10/2017 GILDARDO ROSENTHAL MD, Ot M51.35 OTHER INTERVERTEBRAL DISC DEGENERATION, 08/10/2017 GILDARDO ROSENTHAL MD, Ot M54 .5 LOW BACK PAIN 08/10/2017 BRISEIDA CIFUENTES PEYMAN Ot M25.512 PAIN IN LEFT SHOULDER 08/10/2017 GILDARDO ROSENTHAL MD, Ot Z12.31 ENCNTR SCREEN MAMMOGRAM FOR MALIGNANT NE 08/10/2017 GILDARDO ROSENTHAL MD Ot N64.89 OTHER SPECIFIED DISORDERS OF BREAST 08/10/2017 GILDARDO ROSENTHAL MD, Ot N64.89 OTHER SPECIFIED DISORDERS OF BREAST 08/10/2017 GILDARDO ROSENTHAL MD, Ot Z45 .2 ENCOUNTER FOR ADJUSTMENT AND MANAGEMENT 08/10/2017 GILDARDO ROSENTHAL MD Ot G47.33 OBSTRUCTIVE SLEEP APNEA (ADULT) (PEDIATR 08/11/2017 GILDARDO ROSENTHAL MD, Ot G47.33 OBSTRUCTIVE SLEEP APNEA (ADULT) (PEDIATR 08/12/2017 GILDARDO ROSENTHAL MD Ot F39 UNSPECIFIED MOOD [AFFECTIVE] DISORDER 08/12/2017 GILDARDO ROSENTHAL MD Ot G47.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 08/12/2017 GILDARDO ROSENTHAL MD Ot R06.83 SNORING 08/12/2017 AROLDO AUGUSTE MD Ot B37 .9 CANDIDIASIS, UNSPECIFIED 08/12/2017 AROLDO AUGUSTE MD Ot F41 .9 ANXIETY DISORDER, UNSPECIFIED 08/12/2017 AROLDO AUGUSTE MD Ot F90 .9 ATTENTION-DEFICIT HYPERACTIVITY DISORDER 08/12/2017 AROLDO AUGUSTE MD Ot G43.909 MIGRAINE, UNSP, NOT INTRACTABLE, WITHOUT 08/12/2017 AROLDO AUGUSTE MD Ot J45.909 UNSPECIFIED ASTHMA, UNCOMPLICATED 08/12/2017 AROLDO AUGUSTE MD Ot Z79.82 BEAM BUILDER (CURRENT) USE OF ASPIRIN 08/12/2017 AROLDO AUGUSTE MD Ot Z87.19 PERSONAL HISTORY OF OTHER DISEASES OF TH 08/12/2017 AROLDO AUGUSTE MD Ot Z90.710 ACQUIRED ABSENCE OF BOTH CERVIX AND UTER 08/17/2017 GILDARDO ROSENTHAL MD, Ot F39 UNSPECIFIED MOOD [AFFECTIVE] DISORDER 08/17/2017 GILDARDO ROSENTHAL MD Ot G47.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 08/17/2017 GILDARDO ROSENTHAL MD, Ot R06.83 SNORING 08/31/2017 CINDY GUADALUPE FAC, ALI FACP CCDS Ot I73.9 PERIPHERAL VASCULAR DISEASE, UNSPECIFIED 09/06/2017 JAY LANZA MD Ot B37.89 OTHER SITES OF CANDIDIASIS 09/06/2017 JAY LANZA MD, Ot L98 .9 DISORDER OF THE SKIN AND SUBCUTANEOUS TI 09/14/2017 JAY LANZA MD, Ot B37.89 OTHER SITES OF CANDIDIASIS 09/14/2017 JAY LANZA MD, Ot L98 .9 DISORDER OF THE SKIN AND SUBCUTANEOUS TI 10/04/2017 GILDARDO ROSENTHAL MD, Ot Z12.31 ENCNTR SCREEN MAMMOGRAM FOR MALIGNANT NE 10/04/2017 GILDARDO ROSENTHAL MD Ot N64.89 OTHER SPECIFIED DISORDERS OF BREAST 10/04/2017 GILDARDO ROSENTHAL MD, Ot N64.89 OTHER SPECIFIED DISORDERS OF BREAST 10/04/2017 GILDARDO ROSENTHAL MD Ot Z45 .2 ENCOUNTER FOR ADJUSTMENT AND MANAGEMENT 10/04/2017 JAY LANZA MD Ot B37.89 OTHER SITES OF CANDIDIASIS 10/04/2017 JAY LANZA MD, Ot L98 .9 DISORDER OF THE SKIN AND SUBCUTANEOUS TI 10/04/2017 CINDY GUADALUPE FAC, ALI FACP CCDS Ot I70.213 ATHSCL [place] ARTERIES OF EXTRM W INTRMT 10/05/2017 YU SAMUEL Ot F3 9 UNSPECIFIED MOOD [AFFECTIVE] DISORDER 10/05/2017 YU SAMUEL Ot F90.0 ATTN-DEFCT HYPERACTIVITY DISORDER, PREDO 10/05/2017 YU SAMUEL Ot K58.2 MIXED IRRITABLE BOWEL SYNDROME 10/10/2017 CINDY GUADALUPE FACC, ALI FACP CCDS Ot I73.9 PERIPHERAL VASCULAR DISEASE, UNSPECIFIED 10/14/2017 HALI GUADALUPE, IVA White Ot I87.2 VENOUS INSUFFICIENCY (CHRONIC) (PERIPHER 10/14/2017 HALI GUADALUPE, IVA White Ot Z01.818 ENCOUNTER FOR OTHER PREPROCEDURAL EXAMIN 10/14/2017 Ot 278.00 OBE SITY, NOS 10/14/2017 Ot 285.9 ANEM IA NOS 10/14/2017 Ot 311 DEPRES SIVE DISORDER NEC 10/14/2017 Ot 780.79 OTH MALAISE FATIGUE 10/14/2017 Ot 789.00 ABD OMINAL PAIN, UNSPECIFIED SITE 10/14/2017 Ot V15.88 HIS TORY OF FALL 10/14/2017 Ot V58.61 ANTICOAGULANTS,LT,CURRENT USE 10/14/2017 Ot V58.69 OTH MED,LT,CURRENT USE 10/14/2017 Ot V58.81 FIT /ADJ VASCULAR CATHETER 10/14/2017 GILDARDO ROSENTHAL MD Ot N64.89 OTHER SPECIFIED DISORDERS OF BREAST 10/14/2017 GILDARDO ROSENTHAL MD Ot Z45 .2 ENCOUNTER FOR ADJUSTMENT AND MANAGEMENT 10/17/2017 HALI GUADALUPE, IVA White Ot I87.2 VENOUS INSUFFICIENCY (CHRONIC) (PERIPHER 10/17/2017 IVA LAL MD Ot Z01.818 ENCOUNTER FOR OTHER PREPROCEDURAL EXAMIN 10/19/2017 IVA LAL MD Ot E78.5 HYPERLIPIDEMIA, UNSPECIFIED 10/19/2017 HALI GUADALUPE, IVA White Ot F41.9 ANXIETY DISORDER, UNSPECIFIED 10/19/2017 IVA LAL MD Ot F90.9 ATTENTION-DEFICIT HYPERACTIVITY DISORDER 10/19/2017 HALI GUADALUPE, IVA White Ot G40.909 EPILEPSY, UNSP, NOT INTRACTABLE, WITHOUT 10/19/2017 IVA LAL MD Ot G43.909 MIGRAINE, UNSP, NOT INTRACTABLE, WITHOUT 10/19/2017 IVA LAL MD Ot I1 0 ESSENTIAL (PRIMARY) HYPERTENSION 10/19/2017 HALI GUADALUPE, IVA White Ot J45.909 UNSPECIFIED ASTHMA, UNCOMPLICATED 10/19/2017 IVA LAL MD Ot K21.9 GASTRO-ESOPHAGEAL REFLUX DISEASE WITHOUT 10/19/2017 IVA LAL MD Ot Z45.2 ENCOUNTER FOR ADJUSTMENT AND MANAGEMENT 10/19/2017 IVA LAL MD Ot Z79.82 DETENTION (CURRENT) USE OF ASPIRIN 10/19/2017 IVA LAL MD Ot Z79.899 OTHER BEAM BUILDER (CURRENT) DRUG THERAPY 10/19/2017 IVA LAL MD Ot Z88.1 ALLERGY STATUS TO OTHER ANTIBIOTIC AGENT 10/19/2017 IVA LAL MD, Ot Z88.2 ALLERGY STATUS TO SULFONAMIDES STATUS 10/19/2017 IVA LAL MD Ot Z88.5 ALLERGY STATUS TO NARCOTIC AGENT STATUS 10/19/2017 IVA LAL MD Ot Z88.8 ALLERGY STATUS TO OTH DRUG/MEDS/BIOL SUB 10/19/2017 Ot 278.00 OBE SITY, NOS 10/19/2017 Ot 285.9 ANEM IA NOS 10/19/2017 Ot 311 DEPRES SIVE DISORDER NEC 10/19/2017 Ot 780.79 OTH MALAISE FATIGUE 10/19/2017 Ot 789.00 ABD OMINAL PAIN, UNSPECIFIED SITE 10/19/2017 Ot V15.88 HIS TORY OF FALL 10/19/2017 Ot V58.61 ANTICOAGULANTS,LT,CURRENT USE 10/19/2017 Ot V58.69 OTH MED,LT,CURRENT USE 10/19/2017 Ot V58.81 FIT /ADJ VASCULAR CATHETER 10/19/2017 GILDARDO ROSENTHAL MD Ot N64.89 OTHER SPECIFIED DISORDERS OF BREAST 10/19/2017 GILDARDO ROSENTHAL MD Ot Z45 .2 ENCOUNTER FOR ADJUSTMENT AND MANAGEMENT 10/20/2017 IVA LAL MD Ot E78.5 HYPERLIPIDEMIA, UNSPECIFIED 10/20/2017 IVA LAL MD Ot F41.9 ANXIETY DISORDER, UNSPECIFIED 10/20/2017 IVA LAL MD Ot F90.9 ATTENTION-DEFICIT HYPERACTIVITY DISORDER 10/20/2017 IVA LAL MD Ot G40.909 EPILEPSY, UNSP, NOT INTRACTABLE, WITHOUT 10/20/2017 IVA LAL MD Ot G43.909 MIGRAINE, UNSP, NOT INTRACTABLE, WITHOUT 10/20/2017 IVA LAL MD Ot I1 0 ESSENTIAL (PRIMARY) HYPERTENSION 10/20/2017 IVA LAL MD Ot J45.909 UNSPECIFIED ASTHMA, UNCOMPLICATED 10/20/2017 IVA LAL MD Ot K21.9 GASTRO-ESOPHAGEAL REFLUX DISEASE WITHOUT 10/20/2017 IVA LAL MD Ot Z45.2 ENCOUNTER FOR ADJUSTMENT AND MANAGEMENT 10/20/2017 IVA LAL MD Ot Z79.82 DETENTION (CURRENT) USE OF ASPIRIN 10/20/2017 IVA LAL MD Ot Z79.899 OTHER BEAM BUILDER (CURRENT) DRUG THERAPY 10/20/2017 HALI GUADALUPE, IVA White Ot Z88.1 ALLERGY STATUS TO OTHER ANTIBIOTIC AGENT 10/20/2017 HALI GUADALUPE, IVA White Ot Z88.2 ALLERGY STATUS TO SULFONAMIDES STATUS 10/20/2017 HALI GUADALUPE, IVA White Ot Z88.5 ALLERGY STATUS TO NARCOTIC AGENT STATUS 10/20/2017 HALI GUADALUPE, IVA White Ot Z88.8 ALLERGY STATUS TO OTH DRUG/MEDS/BIOL SUB 10/27/2017 YU SAMUEL BROADCAST TRAFFIC COORDINATOR Ot F3 9 UNSPECIFIED MOOD [AFFECTIVE] DISORDER 10/27/2017 YU SAMUEL BROADCAST TRAFFIC COORDINATOR Ot F90.0 ATTN-DEFCT HYPERACTIVITY DISORDER, PREDO 10/27/2017 YU SAMUEL BROADCAST TRAFFIC COORDINATOR Ot K58.2 MIXED IRRITABLE BOWEL SYNDROME 11/01/2017 CINDY GUADALUPE [facility] CCDS Ot I73.9 PERIPHERAL VASCULAR DISEASE, UNSPECIFIED 11/02/2017 YU SAMUEL BROADCAST TRAFFIC COORDINATOR Ot F3 9 UNSPECIFIED MOOD [AFFECTIVE] DISORDER 11/02/2017 YU SAMUEL BROADCAST TRAFFIC COORDINATOR Ot F90.0 ATTN-DEFCT HYPERACTIVITY DISORDER, PREDO 11/02/2017 YU SAMUEL BROADCAST TRAFFIC COORDINATOR Ot K58.2 MIXED IRRITABLE BOWEL SYNDROME 11/07/2017 CINDY GUADALUPE FAC, [facility] CCDS Ot I73.9 PERIPHERAL VASCULAR DISEASE, UNSPECIFIED 12/15/2017 YU SAMUEL BROADCAST TRAFFIC COORDINATOR Ot R56.9 UNSPECIFIED CONVULSIONS 12/16/2017 YU SAMUEL BROADCAST TRAFFIC COORDINATOR Ot R56.9 UNSPECIFIED CONVULSIONS 12/21/2017 YU SAMUEL BROADCAST TRAFFIC COORDINATOR Ot R56.9 UNSPECIFIED CONVULSIONS 01/13/2018 YU SAMUEL BROADCAST TRAFFIC COORDINATOR Ot R56.9 UNSPECIFIED CONVULSIONS 02/16/2018 YU SAMUEL BROADCAST TRAFFIC COORDINATOR Ot R56.9 UNSPECIFIED CONVULSIONS 02/16/2018 YU SAMUEL BROADCAST TRAFFIC COORDINATOR Ot R56.9 UNSPECIFIED CONVULSIONS 02/19/2018 YU SAMUEL BROADCAST TRAFFIC COORDINATOR Ot R56.9 UNSPECIFIED CONVULSIONS 03/07/2018 CINDY GUADALUPE [facility]AC CCDS Ot R00.2 PALPITATIONS 03/10/2018 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 Ot F41 .9 ANXIETY DISORDER, UNSPECIFIED 03/10/2018 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 Ot F90 .9 ATTENTION-DEFICIT HYPERACTIVITY DISORDER 03/10/2018 CHASITY AWAD APRN Ot G40.909 EPILEPSY, UNSP, NOT INTRACTABLE, WITHOUT 03/10/2018 CHASITY AWAD APRN Ot G43.909 MIGRAINE, UNSP, NOT INTRACTABLE, WITHOUT 03/10/2018 CHASITY AWAD APRN Ot I10 ESSENTIAL (PRIMARY) HYPERTENSION 03/10/2018 CHASITY AWAD APRN, Ot J45.909 UNSPECIFIED ASTHMA, UNCOMPLICATED 03/10/2018 CHASITY AWAD APRN Ot M54 .5 LOW BACK PAIN 03/10/2018 CHASITY AWAD APRN Ot R40.2142 COMA SCALE, EYES OPEN, SPONTANEOUS, EMR 03/10/2018 CHASITY AWAD APRN Ot R40.2252 COMA SCALE, [...] OF 03/10/2018 CHASITY AWAD APRN Ot Z79.82 BEAM BUILDER (CURRENT) USE OF ASPIRIN 03/10/2018 CHASITY AWAD APRN Ot Z87.19 PERSONAL HISTORY OF OTHER DISEASES OF 03/10/2018 CHASITY AWAD APRN Ot Z88 .1 ALLERGY STATUS TO OTHER ANTIBIOTIC AGENT 03/10/2018 CHASITY AWAD APRN Ot Z88 .2 ALLERGY STATUS TO SULFONAMIDES STATUS 03/10/2018 CHASITY AWAD APRN Ot Z88 .5 ALLERGY STATUS TO NARCOTIC AGENT STATUS 03/10/2018 CHASITY AWAD APRN Ot Z88 .8 ALLERGY STATUS TO OTH DRUG/MEDS/BIOL SUB 03/10/2018 CHASITY AWAD APRN Ot Z90.710 ACQUIRED ABSENCE OF BOTH CERVIX AND UTER 03/13/2018 CHASITY AWAD APRN Ot F41 .9 ANXIETY DISORDER, UNSPECIFIED 03/13/2018 CHASITY AWAD APRN Ot F90 .9 ATTENTION-DEFICIT HYPERACTIVITY DISORDER 03/13/2018 CHASITY AWAD APRN Ot G40.909 EPILEPSY, UNSP, NOT INTRACTABLE, WITHOUT 03/13/2018 CHASITY AWAD APRN Ot G43.909 MIGRAINE, UNSP, NOT INTRACTABLE, WITHOUT 03/13/2018 CHASITY AWAD APRN Ot I10 ESSENTIAL (PRIMARY) HYPERTENSION 03/13/2018 CHASITY AWAD APRN Ot J45.909 UNSPECIFIED ASTHMA, UNCOMPLICATED 03/13/2018 CHASITY AWAD APRN Ot M54 .5 LOW BACK PAIN 03/13/2018 CHASITY AWAD APRN [...] STEPS, 03/13/2018 CHASITY AWAD APRN Ot Y92.241 [facility] THE PL[facility] OF OCCURRENCE OF 03/13/2018 CHASITY AWAD APRN Ot Z79.82 BEAM BUILDER (CURRENT) USE OF ASPIRIN 03/13/2018 CHASITY AWAD APRN Ot Z87.19 PERSONAL HISTORY OF OTHER DISEASES OF 03/13/2018 CHASITY AWAD APRN Ot Z88 .1 ALLERGY STATUS TO OTHER ANTIBIOTIC AGENT 03/13/2018 CHASITY AWAD APRN Ot Z88 .2 ALLERGY STATUS TO SULFONAMIDES STATUS 03/13/2018 CHASITY AWAD APRN Ot Z88 .5 ALLERGY STATUS TO NARCOTIC AGENT STATUS 03/13/2018 CHASITY AWAD APRN Ot Z88 .8 ALLERGY STATUS TO OTH DRUG/MEDS/BIOL SUB 03/13/2018 CHASITY AWAD APRN Ot Z90.710 ACQUIRED ABSENCE OF BOTH CERVIX AND UTER 03/23/2018 YU SAMUEL BROADCAST TRAFFIC COORDINATOR Ot R56.9 UNSPECIFIED CONVULSIONS 03/24/2018 YU SAMUEL BROADCAST TRAFFIC COORDINATOR Ot R56.9 UNSPECIFIED CONVULSIONS 03/30/2018 CINDY GUADALUPE [facility] CCDS Ot R00.2 PALPITATIONS 04/04/2018 CINDY GUADALUPE [facility] CCD[facility] Ot R00.2 PALPITATIONS 04/17/2018 YU SAMUEL Mikala BROADCAST TRAFFIC COORDINATOR Ot R56.9 UNSPECIFIED CONVULSIONS 04/20/2018 YU SAMUEL BROADCAST TRAFFIC COORDINATOR Ot R56.9 UNSPECIFIED CONVULSIONS 04/20/2018 YU SAMUEL Mikala BROADCAST TRAFFIC COORDINATOR Ot R56.9 UNSPECIFIED CONVULSIONS 04/20/2018 JIMMIEYU BROADCAST TRAFFIC COORDINATOR Ot R56.9 UNSPECIFIED CONVULSIONS 04/20/2018 GILDARDO ROSENTHAL MD Ot 786.50 CHEST PAIN NOS 04/20/2018 Ot K21.9 [place] RO-ESOPHAGEAL REFLUX DISEASE WITHOUT 04/20/2018 Ot Z01.818 EN COUNTER FOR OTHER PREPROCEDURAL EXAMIN 04/20/2018 GILDARDO ROSENTHAL MD Ot M25.561 PAIN IN RIGHT KNEE 04/20/2018 GILDARDO ROSENTHAL MD Ot M25.511 PAIN IN RIGHT SHOULDER 04/20/2018 GILDARDO ROSENTHAL MD Ot M25.561 PAIN IN RIGHT KNEE 04/20/2018 MILLIE GUADALUPE, MIKE Adams Ot R32 UNSPECIFIED URINARY INCONTINENCE 04/20/2018 MILLIE GUADALUPE, MIKE Adams Ot R35.0 FREQUENCY OF MICTURITION 04/20/2018 GILDARDO ROSENTHAL MD Ot M51.34 OTHER INTERVERTEBRAL DISC DEGENERATION, 04/20/2018 GILDARDO ROSENTHAL MD Ot M51.35 OTHER INTERVERTEBRAL DISC DEGENERATION, 04/20/2018 GILDARDO ROSENTHAL MD Ot M54 .5 LOW BACK PAIN 04/20/2018 BRISEIDA CIFUENTES Ot M25.512 PAIN IN LEFT SHOULDER 04/20/2018 GILDARDO ROSENTHAL MD Ot Z12.31 ENCNTR SCREEN MAMMOGRAM FOR MALIGNANT NE 04/20/2018 GILDARDO ROSENTHAL MD Ot N64.89 OTHER SPECIFIED DISORDERS OF BREAST 04/20/2018 GILDARDO ROSENTHAL MD Ot N64.89 OTHER SPECIFIED DISORDERS OF BREAST 04/20/2018 BROWN MD, GILDARDO K Ot Z45 .2 ENCOUNTER FOR ADJUSTMENT AND MANAGEMENT 04/20/2018 MYLA GUADALUPE, JAY Acevedo Ot B37.89 OTHER SITES OF CANDIDIASIS 04/20/2018 MYLA GUADALUPE, JAY Acevedo Ot L98 .9 DISORDER OF THE SKIN AND SUBCUTANEOUS TI 04/20/2018 CINDY GUADALUPE [facility] Ot I73.9 PERIPHERAL VASCULAR DISEASE, UNSPECIFIED 04/20/2018 YU SAMUEL BROADCAST TRAFFIC COORDINATOR Ot F3 9 UNSPECIFIED MOOD [AFFECTIVE] DISORDER 04/20/2018 YU SAMUEL BROADCAST TRAFFIC COORDINATOR Ot F90.0 ATTN-DEFCT HYPERACTIVITY DISORDER, PREDO 04/20/2018 YU SAMUEL BROADCAST TRAFFIC COORDINATOR Ot K58.2 MIXED IRRITABLE BOWEL SYNDROME 04/20/2018 YU SAMUEL BROADCAST TRAFFIC COORDINATOR Ot R56.9 UNSPECIFIED CONVULSIONS 04/20/2018 CINDY GUADALUPE [facility] CCDS Ot R00.2 PALPITATIONS 04/20/2018 YU SAMUEL BROADCAST TRAFFIC COORDINATOR Ot R56.9 UNSPECIFIED CONVULSIONS 06/01/2018 YU SAMUEL BROADCAST TRAFFIC COORDINATOR Ot R56.9 UNSPECIFIED CONVULSIONS 06/01/2018 YU SAMUEL BROADCAST TRAFFIC COORDINATOR Ot R56.9 UNSPECIFIED CONVULSIONS 06/15/2018 MARGO FRANCISCO MD Ot Z01.81 8 ENCOUNTER FOR OTHER PREPROCEDURAL EXAMIN 06/16/2018 MARGO FRANCISCO MD Ot E66.9 OBESITY, UNSPECIFIED 06/16/2018 MARGO FRANCISCO MD Ot I10 ESSENTIAL (PRIMARY) HYPERTENSION 06/16/2018 MARGO FRANCISCO MD Ot J45.90 9 UNSPECIFIED ASTHMA, UNCOMPLICATED 06/16/2018 MARGO FRANCISCO MD Ot K21.0 GASTRO-ESOPHAGEAL REFLUX DISEASE WITH ES 06/16/2018 MARGO FRANCISCO MD, Ot K22.2 ESOPHAGEAL OBSTRUCTION 06/16/2018 MARGO FRANCISCO MD Ot K29.70 GASTRITIS, UNSPECIFIED, WITHOUT BLEEDING 06/16/2018 MARGO FRANCISCO MD, Ot K64.0 FIRST DEGREE HEMORRHOIDS 06/16/2018 MAROG FRANCISCO MD, Ot R56.9 UNSPECIFIED CONVULSIONS 06/16/2018 MARGO FRANCISCO MD, Ot Z12.11 ENCOUNTER FOR SCREENING FOR MALIGNANT NE 06/16/2018 MARGO FRANCISCO MD, Ot Z68.41 BODY MASS INDEX (BMI) 40.0-44.9, ADULT 06/16/2018 MARGO FRANCISCO MD Ot Z79.89 9 OTHER DETENTION (CURRENT) DRUG THERAPY 06/19/2018 MARGO FRANCISCO MD Ot Z01.81 8 ENCOUNTER FOR OTHER PREPROCEDURAL EXAMIN 06/20/2018 MARGO FRANCISCO MD Ot E66.9 OBESITY, UNSPECIFIED 06/20/2018 MARGO FRANCISCO MD Ot I10 ESSENTIAL (PRIMARY) HYPERTENSION 06/20/2018 MARGO FRANCISCO MD Ot J45.90 9 UNSPECIFIED ASTHMA, UNCOMPLICATED 06/20/2018 MARGO FRANCISCO MD Ot K21.0 GASTRO-ESOPHAGEAL REFLUX DISEASE WITH ES 06/20/2018 MARGO FRANCISCO MD Ot K22.2 ESOPHAGEAL OBSTRUCTION 06/20/2018 MARGO FRANCISCO MD Ot K29.70 GASTRITIS, UNSPECIFIED, WITHOUT BLEEDING 06/20/2018 MARGO FRANCISCO MD Ot K64.0 FIRST DEGREE HEMORRHOIDS 06/20/2018 MARGO FRANCISCO MD Ot R56.9 UNSPECIFIED CONVULSIONS 06/20/2018 MARGO FRANCISCO MD Ot Z12.11 ENCOUNTER FOR SCREENING FOR MALIGNANT NE 06/20/2018 MARGO FRANCISCO MD Ot Z68.41 BODY MASS INDEX (BMI) 40.0-44.9, ADULT 06/20/2018 MARGO FRANCISCO MD Ot Z79.89 9 OTHER DETENTION (CURRENT) DRUG THERAPY 06/21/2018 YU SAMUEL BROADCAST TRAFFIC COORDINATOR Ot R56.9 UNSPECIFIED CONVULSIONS 06/21/2018 YU SAMUEL Ot Z45.2 ENCOUNTER FOR ADJUSTMENT AND MANAGEMENT 06/22/2018 YU SAMUEL BROADCAST TRAFFIC COORDINATOR Ot R56.9 UNSPECIFIED CONVULSIONS 06/22/2018 YU SAMUEL BROADCAST TRAFFIC COORDINATOR Ot Z45.2 ENCOUNTER FOR ADJUSTMENT AND MANAGEMENT 06/26/2018 MARGO FRANCISCO MD Ot E66.9 OBESITY, UNSPECIFIED 06/26/2018 MARGO FRANCISCO MD Ot I10 ESSENTIAL (PRIMARY) HYPERTENSION 06/26/2018 MARGO FRANCISCO MD Ot J45.90 9 UNSPECIFIED ASTHMA, UNCOMPLICATED 06/26/2018 MARGO FRANCISCO MD Ot K21.0 GASTRO-ESOPHAGEAL REFLUX DISEASE WITH ES 06/26/2018 MARGO FRANCISCO MD Ot K22.2 ESOPHAGEAL OBSTRUCTION 06/26/2018 MARGO FRANCISCO MD Ot K29.70 GASTRITIS, UNSPECIFIED, WITHOUT BLEEDING 06/26/2018 MARGO FRANCISCO MD Ot K64.0 FIRST DEGREE HEMORRHOIDS 06/26/2018 MARGO FRANCISCO MD Ot R56.9 UNSPECIFIED CONVULSIONS 06/26/2018 MARGO FRANCISCO MD Ot Z12.11 ENCOUNTER FOR SCREENING FOR MALIGNANT NE 06/26/2018 MARGO FRANCISCO MD Ot Z68.41 BODY MASS INDEX (BMI) 40.0-44.9, ADULT 06/26/2018 MARGO FRANCISCO MD Ot Z79.89 9 OTHER DETENTION (CURRENT) DRUG THERAPY 06/26/2018 MARGO FRANCISCO MD Ot E66.9 OBESITY, UNSPECIFIED 06/26/2018 MARGO FRANCISCO MD Ot I10 ESSENTIAL (PRIMARY) HYPERTENSION 06/26/2018 MARGO FRANCISCO MD Ot J45.90 9 UNSPECIFIED ASTHMA, UNCOMPLICATED 06/26/2018 MARGO FRANCISCO MD Ot K21.0 GASTRO-ESOPHAGEAL REFLUX DISEASE WITH ES 06/26/2018 MARGO FRANCISCO MD Ot K22.2 ESOPHAGEAL OBSTRUCTION 06/26/2018 MARGO FRANCISCO MD Ot K29.70 GASTRITIS, UNSPECIFIED, WITHOUT BLEEDING 06/26/2018 MARGO FRANCISCO MD, Ot K64.0 FIRST DEGREE HEMORRHOIDS 06/26/2018 MARGO FRANCISCO MD Ot R56.9 UNSPECIFIED CONVULSIONS 06/26/2018 MARGO FRANCISCO MD Ot Z12.11 ENCOUNTER FOR SCREENING FOR MALIGNANT NE 06/26/2018 MARGO FRANCISCO MD Ot Z68.41 BODY MASS INDEX (BMI) 40.0-44.9, ADULT 06/26/2018 MARGO FRANCISCO MD Ot Z79.89 9 OTHER BEAM BUILDER (CURRENT) DRUG THERAPY 06/27/2018 YU SAMUEL BROADCAST TRAFFIC COORDINATOR Ot R56.9 UNSPECIFIED CONVULSIONS 06/27/2018 YU SAMUELP Ot Z45.2 ENCOUNTER FOR ADJUSTMENT AND MANAGEMENT 07/14/2018 YU SAMUELP Ot R56.9 UNSPECIFIED CONVULSIONS 07/14/2018 YU SAMUEL BROADCAST TRAFFIC COORDINATOR Ot R56.9 UNSPECIFIED CONVULSIONS 07/15/2018 YU SAMUEL BROADCAST TRAFFIC COORDINATOR Ot R56.9 UNSPECIFIED CONVULSIONS 08/02/2018 YU SAMUEL Ot R56.9 UNSPECIFIED CONVULSIONS 10/05/2018 CINDY GUADALUPE FACC, LOLY [facility]ACP CCDS Ot 786.50 CHEST PAIN NOS 10/05/2018 GILDARDO ROSENTHAL MD Ot 786 .2 COUGH 10/05/2018 GILDARDO ROSENTHAL MD Ot 789.00 ABDOMINAL PAIN, UNSPECIFIED SITE 10/05/2018 GILDARDO ROSENTHAL MD Ot 789.02 ABDOMINAL PAIN, LEFT UPPER QUADRANT 10/05/2018 GILDARDO ROSENTHAL MD Ot 789 .2 SPLENOMEGALY 10/05/2018 GILDARDO ROSENTHAL MD Ot 272 .0 PURE HYPERCHOLESTEROLEM 10/05/2018 GILDARDO ROSENTHAL MD Ot 278.00 OBESITY, NOS 10/05/2018 GILDARDO ROSENTHAL MD Ot 790 .6 ABN BLOOD CHEMISTRY NEC 10/05/2018 GILDARDO ROSENTHAL MD Ot 799.02 HYPOXEMIA 10/05/2018 GILDARDO ROSENTHAL MD Ot 786.50 CHEST PAIN NOS 10/05/2018 Ot K21.9 [place] RO-ESOPHAGEAL REFLUX DISEASE WITHOUT 10/05/2018 Ot Z01.818 EN COUNTER FOR OTHER PREPROCEDURAL EXAMIN 10/05/2018 GILDARDO ROSENTHAL MD Ot M25.561 PAIN IN RIGHT KNEE 10/05/2018 GILDARDO ROSENTHAL MD Ot M25.511 PAIN IN RIGHT SHOULDER 10/05/2018 GILDARDO ROSENTHAL MD Ot M25.561 PAIN IN RIGHT KNEE 10/05/2018 MILLIE GUADALUPE, MIKE Adams Ot R32 UNSPECIFIED URINARY INCONTINENCE 10/05/2018 MIKE PINTO MD Ot R35.0 FREQUENCY OF MICTURITION 10/05/2018 GILDARDO ROSENTHAL MD Ot M51.34 OTHER INTERVERTEBRAL DISC DEGENERATION, 10/05/2018 GILDARDO ROSENTHAL MD Ot M51.35 OTHER INTERVERTEBRAL DISC DEGENERATION, 10/05/2018 GILDARDO ROSENTHAL MD Ot M54 .5 LOW BACK PAIN 10/05/2018 BRISEIDA CIFUENTES Ot M25.512 PAIN IN LEFT SHOULDER 10/05/2018 GILDARDO ROSENTHAL MD Ot Z12.31 ENCNTR SCREEN MAMMOGRAM FOR MALIGNANT NE 10/05/2018 GILDARDO ROSENTHAL MD Ot N64.89 OTHER SPECIFIED DISORDERS OF BREAST 10/05/2018 GILDARDO ROSENTHAL MD Ot N64.89 OTHER SPECIFIED DISORDERS OF BREAST 10/05/2018 ZEFERINO GUADALUPE, GILDARDO Mcginnis Ot Z45 .2 ENCOUNTER FOR ADJUSTMENT AND MANAGEMENT 10/05/2018 MYLA GUADALUPE, JAY Acevedo Ot B37.89 OTHER SITES OF CANDIDIASIS 10/05/2018 JAY LANZA MD Ot L98 .9 DISORDER OF THE SKIN AND SUBCUTANEOUS TI 10/05/2018 CINDY GUADALUPE [facility]AC, [facility] CCDS Ot I73.9 PERIPHERAL VASCULAR DISEASE, UNSPECIFIED 10/05/2018 YU SAMUEL BROADCAST TRAFFIC COORDINATOR Ot F3 9 UNSPECIFIED MOOD [AFFECTIVE] DISORDER 10/05/2018 YU SAMUEL BROADCAST TRAFFIC COORDINATOR Ot F90.0 ATTN-DEFCT HYPERACTIVITY DISORDER, PREDO 10/05/2018 YU SAMUEL BROADCAST TRAFFIC COORDINATOR Ot K58.2 MIXED IRRITABLE BOWEL SYNDROME 10/05/2018 CINDY GUADALUPE [facility] CCDS Ot R00.2 PALPITATIONS 10/05/2018 YU SAMUELP Ot R56.9 UNSPECIFIED CONVULSIONS 10/05/2018 YU SAMUEL BROADCAST TRAFFIC COORDINATOR Ot Z45.2 ENCOUNTER FOR ADJUSTMENT AND MANAGEMENT 10/05/2018 YU SAMUEL BROADCAST TRAFFIC COORDINATOR Ot R56.9 UNSPECIFIED CONVULSIONS 10/05/2018 YU SAMUEL BROADCAST TRAFFIC COORDINATOR Ot Z45.2 ENCOUNTER FOR ADJUSTMENT AND MANAGEMENT 10/12/2018 YU SAMUEL BROADCAST TRAFFIC COORDINATOR Ot R56.9 UNSPECIFIED CONVULSIONS 10/12/2018 YU SAMUEL BROADCAST TRAFFIC COORDINATOR Ot Z45.2 ENCOUNTER FOR ADJUSTMENT AND MANAGEMENT 10/16/2018 YU SAMUEL BROADCAST TRAFFIC COORDINATOR Ot R56.9 UNSPECIFIED CONVULSIONS 10/16/2018 YU SAMUEL BROADCAST TRAFFIC COORDINATOR Ot Z45.2 ENCOUNTER FOR ADJUSTMENT AND MANAGEMENT 10/18/2018 YU SAMUEL BROADCAST TRAFFIC COORDINATOR Ot R56.9 UNSPECIFIED CONVULSIONS 10/18/2018 YU SAMUEL BROADCAST TRAFFIC COORDINATOR Ot Z45.2 ENCOUNTER FOR ADJUSTMENT AND MANAGEMENT 11/13/2018 YU SAMUEL BROADCAST TRAFFIC COORDINATOR Ot R56.9 UNSPECIFIED CONVULSIONS 11/13/2018 YU SAMUEL BROADCAST TRAFFIC COORDINATOR Ot Z45.2 ENCOUNTER FOR ADJUSTMENT AND MANAGEMENT 11/13/2018 YU SAMUEL BROADCAST TRAFFIC COORDINATOR Ot R56.9 UNSPECIFIED CONVULSIONS 11/13/2018 YU SAMUEL BROADCAST TRAFFIC COORDINATOR Ot Z45.2 ENCOUNTER FOR ADJUSTMENT AND MANAGEMENT 11/13/2018 YU SAMUEL BROADCAST TRAFFIC COORDINATOR Ot R56.9 UNSPECIFIED CONVULSIONS 11/13/2018 YU SAMUEL BROADCAST TRAFFIC COORDINATOR Ot Z45.2 ENCOUNTER FOR ADJUSTMENT AND MANAGEMENT 11/29/2018 YU SAMUEL BROADCAST TRAFFIC COORDINATOR Ot R56.9 UNSPECIFIED CONVULSIONS 11/29/2018 YU SAMUEL BROADCAST TRAFFIC COORDINATOR Ot Z45.2 ENCOUNTER FOR ADJUSTMENT AND MANAGEMENT 12/15/2018 YU SAMUEL BROADCAST TRAFFIC COORDINATOR Ot R56.9 UNSPECIFIED CONVULSIONS 12/15/2018 YU SAMUEL BROADCAST TRAFFIC COORDINATOR Ot Z45.2 ENCOUNTER FOR ADJUSTMENT AND MANAGEMENT 01/04/2019 YU SAMUEL BROADCAST TRAFFIC COORDINATOR Ot R56.9 UNSPECIFIED CONVULSIONS 01/04/2019 YU SAMUEL BROADCAST TRAFFIC COORDINATOR Ot Z45.2 ENCOUNTER FOR ADJUSTMENT AND MANAGEMENT 01/05/2019 YU SAMUEL BROADCAST TRAFFIC COORDINATOR Ot R56.9 UNSPECIFIED CONVULSIONS 01/05/2019 YU SAMUEL BROADCAST TRAFFIC COORDINATOR Ot Z45.2 ENCOUNTER FOR ADJUSTMENT AND MANAGEMENT 02/11/2019 YU SAMUEL BROADCAST TRAFFIC COORDINATOR Ot R56.9 UNSPECIFIED CONVULSIONS 02/11/2019 YU SAMUEL BROADCAST TRAFFIC COORDINATOR Ot Z45.2 ENCOUNTER FOR ADJUSTMENT AND MANAGEMENT 02/12/2019 YU SAMUEL BROADCAST TRAFFIC COORDINATOR Ot R56.9 UNSPECIFIED CONVULSIONS 02/12/2019 YU SAMUEL BROADCAST TRAFFIC COORDINATOR Ot Z45.2 ENCOUNTER FOR ADJUSTMENT AND MANAGEMENT 02/14/2019 YU SAMUEL BROADCAST TRAFFIC COORDINATOR Ot R56.9 UNSPECIFIED CONVULSIONS 02/14/2019 YU SAMUEL BROADCAST TRAFFIC COORDINATOR Ot Z45.2 ENCOUNTER FOR ADJUSTMENT AND MANAGEMENT 03/14/2019 YU SAMUEL BROADCAST TRAFFIC COORDINATOR Ot R56.9 UNSPECIFIED CONVULSIONS 03/14/2019 YU SAMUEL BROADCAST TRAFFIC COORDINATOR Ot Z45.2 ENCOUNTER FOR ADJUSTMENT AND MANAGEMENT 03/19/2019 YU SAMUEL BROADCAST TRAFFIC COORDINATOR Ot R56.9 UNSPECIFIED CONVULSIONS 03/19/2019 YU SAMUEL BROADCAST TRAFFIC COORDINATOR Ot Z45.2 ENCOUNTER FOR ADJUSTMENT AND MANAGEMENT 04/09/2019 YU SAMUEL BROADCAST TRAFFIC COORDINATOR Ot R56.9 UNSPECIFIED CONVULSIONS 04/09/2019 YU SAMUEL BROADCAST TRAFFIC COORDINATOR Ot Z45.2 ENCOUNTER FOR ADJUSTMENT AND MANAGEMENT 04/09/2019 YU SAMUEL BROADCAST TRAFFIC COORDINATOR Ot R56.9 UNSPECIFIED CONVULSIONS 04/09/2019 YU SAMUEL BROADCAST TRAFFIC COORDINATOR Ot Z45.2 ENCOUNTER FOR ADJUSTMENT AND MANAGEMENT 05/13/2019 YU SAMUEL BROADCAST TRAFFIC COORDINATOR Ot R56.9 UNSPECIFIED CONVULSIONS 05/13/2019 YU SAMUEL BROADCAST TRAFFIC COORDINATOR Ot Z45.2 ENCOUNTER FOR ADJUSTMENT AND MANAGEMENT 05/14/2019 YU SAMUEL Ot R56.9 UNSPECIFIED CONVULSIONS 05/14/2019 YU SAMUEL Ot Z45.2 ENCOUNTER FOR ADJUSTMENT AND MANAGEMENT 06/05/2019 GILDARDO RSOENTHAL MD Ot 272 .0 PURE HYPERCHOLESTEROLEM 06/05/2019 GILDARDO ROSENTHAL MD Ot 278.00 OBESITY, NOS 06/05/2019 GILDARDO ROSENTHAL MD Ot 790 .6 ABN BLOOD CHEMISTRY NEC 06/05/2019 GILDARDO ROSENTHAL MD Ot 799.02 HYPOXEMIA 06/05/2019 GILDARDO ROSENTHAL MD Ot 786.50 CHEST PAIN NOS 06/05/2019 Ot K21.9 [place] RO-ESOPHAGEAL REFLUX DISEASE WITHOUT 06/05/2019 Ot Z01.818 EN COUNTER FOR OTHER PREPROCEDURAL EXAMIN 06/05/2019 GILDARDO ROSENTHAL MD Ot M25.561 PAIN IN RIGHT KNEE 06/05/2019 GILDARDO ROSENTHAL MD Ot M25.511 PAIN IN RIGHT SHOULDER 06/05/2019 GILDARDO ROSENTHAL MD Ot M25.561 PAIN IN RIGHT KNEE 06/05/2019 MIKE PINTO MD Ot R32 UNSPECIFIED URINARY INCONTINENCE 06/05/2019 MIKE PINTO MD Ot R35.0 FREQUENCY OF MICTURITION 06/05/2019 GILDARDO ROSENTHAL MD Ot M51.34 OTHER INTERVERTEBRAL DISC DEGENERATION, 06/05/2019 GILDARDO ROSENTHAL MD Ot M51.35 OTHER INTERVERTEBRAL DISC DEGENERATION, 06/05/2019 GILDARDO ROSENTHAL MD Ot M54 .5 LOW BACK PAIN 06/05/2019 BRISEIDA CIFUENTES Ot M25.512 PAIN IN LEFT SHOULDER 06/05/2019 GILDARDO ROSENTHAL MD Ot Z12.31 ENCNTR SCREEN MAMMOGRAM FOR MALIGNANT NE 06/05/2019 GILDARDO ROSENTHAL MD Ot N64.89 OTHER SPECIFIED DISORDERS OF BREAST 06/05/2019 GILDARDO ROSENTHAL MD Ot N64.89 OTHER SPECIFIED DISORDERS OF BREAST 06/05/2019 GILDARDO ROSENTHAL MD Ot Z45 .2 ENCOUNTER FOR ADJUSTMENT AND MANAGEMENT 06/05/2019 JAY LANZA MD Ot B37.89 OTHER SITES OF CANDIDIASIS 06/05/2019 JAY LANZA MD Ot L98 .9 DISORDER OF THE SKIN AND SUBCUTANEOUS TI 06/05/2019 CINDY GUADALUPE FACC, [facility] CCDS Ot I73.9 PERIPHERAL VASCULAR DISEASE, UNSPECIFIED 06/05/2019 YU SAMUEL BROADCAST TRAFFIC COORDINATOR Ot F3 9 UNSPECIFIED MOOD [AFFECTIVE] DISORDER 06/05/2019 YU SAMUEL BROADCAST TRAFFIC COORDINATOR Ot F90.0 ATTN-DEFCT HYPERACTIVITY DISORDER, PREDO 06/05/2019 YU SAMUEL BROADCAST TRAFFIC COORDINATOR Ot K58.2 MIXED IRRITABLE BOWEL SYNDROME 06/05/2019 CINDY GUADALUPE [facility] CCDS Ot R00.2 PALPITATIONS 06/05/2019 YU SAMUEL BROADCAST TRAFFIC COORDINATOR Ot R56.9 UNSPECIFIED CONVULSIONS 06/05/2019 YU SAMUEL BROADCAST TRAFFIC COORDINATOR Ot Z45.2 ENCOUNTER FOR ADJUSTMENT AND MANAGEMENT 06/05/2019 YU SAMUEL BROADCAST TRAFFIC COORDINATOR Ot R56.9 UNSPECIFIED CONVULSIONS 06/05/2019 YU SAMUEL BROADCAST TRAFFIC COORDINATOR Ot Z45.2 ENCOUNTER FOR ADJUSTMENT AND MANAGEMENT 07/04/2019 YU SAMUEL BROADCAST TRAFFIC COORDINATOR Ot R56.9 UNSPECIFIED CONVULSIONS 07/04/2019 YU SAMUEL BROADCAST TRAFFIC COORDINATOR Ot Z45.2 ENCOUNTER FOR ADJUSTMENT AND MANAGEMENT 07/23/2019 UY SAMUEL BROADCAST TRAFFIC COORDINATOR Ot R56.9 UNSPECIFIED CONVULSIONS 07/23/2019 YU SAMUEL BROADCAST TRAFFIC COORDINATOR Ot Z45.2 ENCOUNTER FOR ADJUSTMENT AND MANAGEMENT 07/31/2019 YU SAMUEL BROADCAST TRAFFIC COORDINATOR Ot R56.9 UNSPECIFIED CONVULSIONS 07/31/2019 YU SAMUEL BROADCAST TRAFFIC COORDINATOR Ot Z45.2 ENCOUNTER FOR ADJUSTMENT AND MANAGEMENT 08/07/2019 CHASITY AWAD APRN Ot F41 .9 ANXIETY DISORDER, UNSPECIFIED 08/07/2019 CHASITY AWAD APRN Ot F90 .9 ATTENTION-DEFICIT HYPERACTIVITY DISORDER 08/07/2019 CHASITY AWAD APRN Ot G40.909 EPILEPSY, UNSP, NOT INTRACTABLE, WITHOUT 08/07/2019 CHASITY AWAD APRN Ot G43.909 MIGRAINE, UNSP, NOT INTRACTABLE, WITHOUT 08/07/2019 CHASITY AWAD APRN Ot I10 ESSENTIAL (PRIMARY) HYPERTENSION 08/07/2019 CHASITY AWAD APRN Ot J45.909 UNSPECIFIED ASTHMA, UNCOMPLICATED 08/07/2019 CHASITY AWAD APRN Ot K58 .9 IRRITABLE BOWEL SYNDROME WITHOUT DIARRHE 08/07/2019 CHASITY AWAD APRN Ot S01.01XA LACERATION WITHOUT FOREIGN BODY OF SCALP 08/07/2019 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 Ot W18.39XA OTHER FALL ON SAME LEVEL, INITIAL ENCOUN 08/07/2019 CHASITY AWAD APRN Ot W22.8XXA STRIKING AGAINST OR STRUCK BY OTHER OBJE 08/07/2019 CHASITY AWAD APRN Ot Z23 ENCOUNTER FOR IMMUNIZATION 08/07/2019 CHASITY AWAD APRN Ot Z79.52 DETENTION (CURRENT) USE OF SYSTEMIC STER 08/07/2019 CHASITY AWAD APRN Ot Z79.82 DETENTION (CURRENT) USE OF ASPIRIN 08/07/2019 CHASITY AWAD APRN Ot Z88 .0 ALLERGY STATUS TO PENICILLIN 08/07/2019 CHASITY AWAD APRN Ot Z88 .1 ALLERGY STATUS TO OTHER ANTIBIOTIC AGENT 08/07/2019 CHASITY AWAD APRN Ot Z88 .2 ALLERGY STATUS TO SULFONAMIDES STATUS 08/07/2019 CHASITY AWAD APRN Ot Z88 .5 ALLERGY STATUS TO NARCOTIC AGENT STATUS 08/07/2019 CHASITY AWAD APRN Ot Z88 .8 ALLERGY STATUS TO OTH DRUG/MEDS/BIOL SUB 08/07/2019 CHASITY AWAD APRN Ot Z90.710 ACQUIRED ABSENCE OF BOTH CERVIX AND UTER 08/07/2019 CHASITY AWAD APRN Ot Z91.040 LATEX ALLERGY STATUS 08/08/2019 GILDARDO ROSENTHAL MD Ot 272 .0 PURE HYPERCHOLESTEROLEM 08/08/2019 GILDARDO ROSENTHAL MD Ot 278.00 OBESITY, NOS 08/08/2019 GILDARDO ROSENTHAL MD Ot 790 .6 ABN BLOOD CHEMISTRY NEC 08/08/2019 GILDARDO ROSENTHAL MD Ot 799.02 HYPOXEMIA 08/08/2019 GILDARDO ROSENTHAL MD Ot 786.50 CHEST PAIN NOS 08/08/2019 Ot K21.9 [place] RO-ESOPHAGEAL REFLUX DISEASE WITHOUT 08/08/2019 Ot Z01.818 EN COUNTER FOR OTHER PREPROCEDURAL EXAMIN 08/08/2019 GILDARDO ROSENTHAL MD Ot M25.561 PAIN IN RIGHT KNEE 08/08/2019 GILDARDO ROSENTHAL MD Ot M25.511 PAIN IN RIGHT SHOULDER 08/08/2019 GILDARDO ROSENTHAL MD Ot M25.561 PAIN IN RIGHT KNEE 08/08/2019 MILLIE GUADALUPE, MIKE Adams Ot R32 UNSPECIFIED URINARY INCONTINENCE 08/08/2019 MILLIE GUADALUPE, MIKE Adams Ot R35.0 FREQUENCY OF MICTURITION 08/08/2019 GILDARDO ROSENTHAL MD Ot M51.34 OTHER INTERVERTEBRAL DISC DEGENERATION, 08/08/2019 GILDARDO ROSENTHAL MD Ot M51.35 OTHER INTERVERTEBRAL DISC DEGENERATION, 08/08/2019 GILDARDO ROSENTHAL MD Ot M54 .5 LOW BACK PAIN 08/08/2019 BRISEIDA CIFUENTES Ot M25.512 PAIN IN LEFT SHOULDER 08/08/2019 GILDARDO ROSENTHAL MD Ot Z12.31 ENCNTR SCREEN MAMMOGRAM FOR MALIGNANT NE 08/08/2019 GILDARDO ROSENTHAL MD Ot N64.89 OTHER SPECIFIED DISORDERS OF BREAST 08/08/2019 GILDARDO ROSENTHAL MD Ot N64.89 OTHER SPECIFIED DISORDERS OF BREAST 08/08/2019 GILDARDO ROSENTHAL MD Ot Z45 .2 ENCOUNTER FOR ADJUSTMENT AND MANAGEMENT 08/08/2019 JAY LANZA MD Ot B37.89 OTHER SITES OF CANDIDIASIS 08/08/2019 JAY LANZA MD Ot L98 .9 DISORDER OF THE SKIN AND SUBCUTANEOUS TI 08/08/2019 CINDY GUADALUPE FAC, [facility] CCDS Ot I73.9 PERIPHERAL VASCULAR DISEASE, UNSPECIFIED 08/08/2019 YU SAMUEL Ot F3 9 UNSPECIFIED MOOD [AFFECTIVE] DISORDER 08/08/2019 YU SAMUEL Ot F90.0 ATTN-DEFCT HYPERACTIVITY DISORDER, PREDO 08/08/2019 YU SAMUEL Ot K58.2 MIXED IRRITABLE BOWEL SYNDROME 08/08/2019 CINDY GUADALUPE [facility], [facility] CCDS Ot R00.2 PALPITATIONS 08/08/2019 YU SAMUELP Ot R56.9 UNSPECIFIED CONVULSIONS 08/08/2019 YU SAMUEL Ot Z45.2 ENCOUNTER FOR ADJUSTMENT AND MANAGEMENT 08/09/2019 CHASITY AWAD APRN Ot F41 .9 ANXIETY DISORDER, UNSPECIFIED 08/09/2019 CHASITY AWAD APRN Ot F90 .9 ATTENTION-DEFICIT HYPERACTIVITY DISORDER 08/09/2019 CHASITY AWAD APRN Ot G40.909 EPILEPSY, UNSP, NOT INTRACTABLE, WITHOUT 08/09/2019 CHASITY AWAD APRN Ot G43.909 MIGRAINE, UNSP, NOT INTRACTABLE, WITHOUT 08/09/2019 CHASITY AWAD APRN Ot I10 ESSENTIAL (PRIMARY) HYPERTENSION 08/09/2019 CHASITY AWAD APRN, Ot J45.909 UNSPECIFIED ASTHMA, UNCOMPLICATED 08/09/2019 CHASITY AWAD APRN Ot K58 .9 IRRITABLE BOWEL SYNDROME WITHOUT DIARRHE 08/09/2019 CHASITY AWAD APRN Ot S01.01XA LACERATION WITHOUT FOREIGN BODY OF SCALP 08/09/2019 CHASITY AWAD APRN Ot W18.39XA OTHER FALL ON SAME LEVEL, INITIAL ENCOUN 08/09/2019 CHASITY AWAD APRN Ot W22.8XXA STRIKING AGAINST OR STRUCK BY OTHER OBJE 08/09/2019 CHASITY AWAD APRN Ot Z23 ENCOUNTER FOR IMMUNIZATION 08/09/2019 CHASITY AWAD APRN Ot Z79.52 BEAM BUILDER (CURRENT) USE OF SYSTEMIC STER 08/09/2019 CHASITY AWAD APRN Ot Z79.82 BEAM BUILDER (CURRENT) USE OF ASPIRIN 08/09/2019 CHASITY AWAD APRN Ot Z88 .0 ALLERGY STATUS TO PENICILLIN 08/09/2019 CHASITY AWAD APRN Ot Z88 .1 ALLERGY STATUS TO OTHER ANTIBIOTIC AGENT 08/09/2019 CHASITY AWAD APRN Ot Z88 .2 ALLERGY STATUS TO SULFONAMIDES STATUS 08/09/2019 CHASITY AWAD APRN Ot Z88 .5 ALLERGY STATUS TO NARCOTIC AGENT STATUS 08/09/2019 CHASITY AWAD APRN Ot Z88 .8 ALLERGY STATUS TO OTH DRUG/MEDS/BIOL SUB 08/09/2019 CHASITY AWAD APRN Ot Z90.710 ACQUIRED ABSENCE OF BOTH CERVIX AND UTER 08/09/2019 CHASITY AWAD APRN Ot Z91.040 LATEX ALLERGY STATUS 08/13/2019 CHASITY AWAD APRN Ot F41 .9 ANXIETY DISORDER, UNSPECIFIED 08/13/2019 CHASITY AWAD APRN Ot F90 .9 ATTENTION-DEFICIT HYPERACTIVITY DISORDER 08/13/2019 CHASITY AWAD APRN Ot G40.909 EPILEPSY, UNSP, NOT INTRACTABLE, WITHOUT 08/13/2019 CHASITY AWAD APRN Ot G43.909 MIGRAINE, UNSP, NOT INTRACTABLE, WITHOUT 08/13/2019 CHASITY AWAD APRN Ot I10 ESSENTIAL (PRIMARY) HYPERTENSION 08/13/2019 CHASITY AWAD APRN, Ot J45.909 UNSPECIFIED ASTHMA, UNCOMPLICATED 08/13/2019 CHASITY AWAD APRN Ot K58 .9 IRRITABLE BOWEL SYNDROME WITHOUT DIARRHE 08/13/2019 CHASITY AWAD APRN Ot S01.01XA LACERATION WITHOUT FOREIGN BODY OF SCALP 08/13/2019 CHASITY AWAD APRN Ot W18.39XA OTHER FALL ON SAME LEVEL, INITIAL ENCOUN 08/13/2019 CHASITY AWAD APRN Ot W22.8XXA STRIKING AGAINST OR STRUCK BY OTHER OBJE 08/13/2019 CHASITY AWAD APRN Ot Z23 ENCOUNTER FOR IMMUNIZATION 08/13/2019 CHASITY AWAD APRN Ot Z79.52 BEAM BUILDER (CURRENT) USE OF SYSTEMIC STER 08/13/2019 CHASITY AWAD APRN Ot Z79.82 DETENTION (CURRENT) USE OF ASPIRIN 08/13/2019 CHASITY AWAD APRN Ot Z88 .0 ALLERGY STATUS TO PENICILLIN 08/13/2019 CHASITY AWAD APRN Ot Z88 .1 ALLERGY STATUS TO OTHER ANTIBIOTIC AGENT 08/13/2019 CHASITY AWAD APRN Ot Z88 .2 ALLERGY STATUS TO SULFONAMIDES STATUS 08/13/2019 CHASITY AWAD APRN Ot Z88 .5 ALLERGY STATUS TO NARCOTIC AGENT STATUS 08/13/2019 CHASITY AWAD APRN Ot Z88 .8 ALLERGY STATUS TO OTH DRUG/MEDS/BIOL SUB 08/13/2019 CHASITY AWAD APRN Ot Z90.710 ACQUIRED ABSENCE OF BOTH CERVIX AND UTER 08/13/2019 CHASITY AWAD APRN Ot Z91.040 LATEX ALLERGY STATUS 08/13/2019 Ot 789.00 08/13/2019 Ot V58.69 08/13/2019 Ot V58.69 08/13/2019 Ot 789.04 08/13/2019 Ot 787.01 08/13/2019 Ot 789.06 08/13/2019 Ot 477.8 08/13/2019 Ot 493.00 08/13/2019 Ot 571.8 08/13/2019 Ot 787.01 08/13/2019 Ot 789.00 08/13/2019 Ot 789.1 08/13/2019 Ot 959.5 08/13/2019 Ot E849.0 08/13/2019 Ot E888.9 08/13/2019 Ot E927 08/13/2019 Ot 459.81 08/13/2019 Ot V72.81 08/13/2019 Ot V72.83 08/13/2019 Ot V74.8 08/13/2019 Ot V58.69 08/13/2019 Ot V58.83 08/13/2019 Ot 786.05 08/13/2019 Ot 786.05 08/13/2019 Ot 785.0 08/13/2019 Ot 785.0 08/13/2019 Ot 786.09 08/13/2019 Ot 786.50 08/13/2019 Ot 719.40 08/13/2019 Ot 780.79 08/13/2019 Ot 785.0 08/13/2019 Ot 786.09 08/13/2019 Ot 786.50 08/13/2019 Ot 276.8 08/13/2019 Ot 784.0 08/13/2019 Ot V12.59 08/13/2019 Ot 530.81 08/13/2019 Ot 729.5 08/13/2019 Ot 782.0 08/13/2019 Ot 729.5 08/13/2019 Ot 719.41 EDMOND NT PAIN-SHLDER 08/13/2019 Ot 719.43 EDMOND NT PAIN- FOREARM 08/13/2019 Ot 285.9 ANEM IA NOS 08/13/2019 Ot 311 DEPRES SIVE DISORDER NEC 08/13/2019 Ot V58.69 OTH MED,LT,CURRENT USE 08/13/2019 Ot 780.2 SYNC OPE AND COLLAPSE 08/13/2019 Ot 780.2 SYNC OPE AND COLLAPSE 08/13/2019 Ot V58.69 OTH MED,LT,CURRENT USE 08/13/2019 Ot 780.39 OTH ER CONVULSIONS 08/13/2019 Ot 959.7 LOWE R LEG INJURY NOS 08/13/2019 Ot E000.8 OTH ER EXTERNAL CAUSE STATUS 08/13/2019 Ot E030 UNSPE CIFIED ACTIVITY 08/13/2019 Ot E849.0 ACC IDENT IN HOME 08/13/2019 Ot E888.9 FAL L NOS 08/13/2019 Ot 427.89 CAR DIAC DYSRHYTHMIAS NEC 08/13/2019 Ot V15.88 HIS TORY OF FALL 08/13/2019 Ot 278.00 OBE SITY, NOS 08/13/2019 Ot 780.79 OTH MALAISE FATIGUE 08/13/2019 Ot 789.00 ABD OMINAL PAIN, UNSPECIFIED SITE 08/13/2019 Ot 789.2 SPLE NOMEGALY 08/13/2019 Ot 780.39 OTH ER CONVULSIONS 08/13/2019 Ot 530.81 ESO PHAGEAL REFLUX 08/13/2019 Ot 789.00 ABD OMINAL PAIN, UNSPECIFIED SITE 08/13/2019 Ot 790.4 ELEV TRANSAMINASE/LDH 08/13/2019 Ot 959.3 ELB/ FOREARM/WRST INJ NOS 08/13/2019 Ot E000.8 OTH ER EXTERNAL CAUSE STATUS 08/13/2019 Ot E849.0 ACC IDENT IN HOME 08/13/2019 Ot E888.9 FAL L NOS 08/13/2019 Ot 724.1 PAIN IN THORACIC SPINE 08/13/2019 Ot 785.1 PALP ITATIONS 08/13/2019 Ot V58.69 OTH MED,LT,CURRENT USE 08/13/2019 Ot 780.39 OTH ER CONVULSIONS 08/13/2019 Ot 783.21 LOS S OF WEIGHT 08/13/2019 Ot V58.69 OTH MED,LT,CURRENT USE 08/13/2019 Ot 285.9 ANEM IA NOS 08/13/2019 Ot 311 DEPRES SIVE DISORDER NEC 08/13/2019 Ot V58.69 OTH MED,LT,CURRENT USE 08/13/2019 Ot 719.46 EDMOND NT PAIN-L/LEG 08/13/2019 Ot 959.7 LOWE R LEG INJURY NOS 08/13/2019 Ot E000.8 OTH ER EXTERNAL CAUSE STATUS 08/13/2019 Ot E849.6 ACC IDENT IN PUBLIC BLDG 08/13/2019 Ot E888.9 FAL L NOS 08/13/2019 CINDY GUADALUPE FACC, [facility] CCDS Ot 786.50 CHEST PAIN NOS 08/13/2019 GILDARDO ROSENTHAL MD Ot 786 .2 COUGH 08/13/2019 GILDARDO ROSENTHAL MD Ot 789.00 ABDOMINAL PAIN, UNSPECIFIED SITE 08/13/2019 GILDARDO ROSENTHAL MD Ot 789.02 ABDOMINAL PAIN, LEFT UPPER QUADRANT 08/13/2019 GILDARDO ROSENTHAL MD Ot 789 .2 SPLENOMEGALY 08/13/2019 GILDARDO ROSENTHAL MD Ot 272 .0 PURE HYPERCHOLESTEROLEM 08/13/2019 GILDARDO ROSENTHAL MD Ot 278.00 OBESITY, NOS 08/13/2019 GILDARDO ROSENTHAL MD Ot 790 .6 ABN BLOOD CHEMISTRY NEC 08/13/2019 GILDARDO ROSENTHAL MD Ot 799.02 HYPOXEMIA 08/13/2019 GILDARDO ROSENTHAL MD Ot 786.50 CHEST PAIN NOS 08/13/2019 Ot K21.9 [place] RO-ESOPHAGEAL REFLUX DISEASE WITHOUT 08/13/2019 Ot Z01.818 EN COUNTER FOR OTHER PREPROCEDURAL EXAMIN 08/13/2019 GILDARDO ROSENTHAL MD Ot M25.561 PAIN IN RIGHT KNEE 08/13/2019 GILDARDO ROSENTHAL MD Ot M25.511 PAIN IN RIGHT SHOULDER 08/13/2019 GILDARDO ROSENTHAL MD Ot M25.561 PAIN IN RIGHT KNEE 08/13/2019 MILLIE GUADALUPE, MIKE Adams Ot R32 UNSPECIFIED URINARY INCONTINENCE 08/13/2019 MIKE PINTO MD Ot R35.0 FREQUENCY OF MICTURITION 08/13/2019 GILDARDO ROSENTHAL MD Ot M51.34 OTHER INTERVERTEBRAL DISC DEGENERATION, 08/13/2019 GILDARDO ROSENTHAL MD Ot M51.35 OTHER INTERVERTEBRAL DISC DEGENERATION, 08/13/2019 GILDARDO ROSENTHAL MD Ot M54 .5 LOW BACK PAIN 08/13/2019 BRISEIDA CIFUENTES Ot M25.512 PAIN IN LEFT SHOULDER 08/13/2019 GILDARDO ROSENTHAL MD Ot Z12.31 ENCNTR SCREEN MAMMOGRAM FOR MALIGNANT NE 08/13/2019 GILDARDO ROSENTHAL MD Ot N64.89 OTHER SPECIFIED DISORDERS OF BREAST 08/13/2019 GILDARDO ROSENTHAL MD Ot N64.89 OTHER SPECIFIED DISORDERS OF BREAST 08/13/2019 GILDARDO ROSENTHAL MD Ot Z45 .2 ENCOUNTER FOR ADJUSTMENT AND MANAGEMENT 08/13/2019 JAY LANZA MD Ot B37.89 OTHER SITES OF CANDIDIASIS 08/13/2019 JAY LANZA MD Ot L98 .9 DISORDER OF THE SKIN AND SUBCUTANEOUS TI 08/13/2019 CINDY GUADALUPE FACC, [facility] CCDS Ot I73.9 PERIPHERAL VASCULAR DISEASE, UNSPECIFIED 08/13/2019 YU SAMUEL Ot F3 9 UNSPECIFIED MOOD [AFFECTIVE] DISORDER 08/13/2019 YU SAMUEL Ot F90.0 ATTN-DEFCT HYPERACTIVITY DISORDER, PREDO 08/13/2019 YU SAMUEL BROADCAST TRAFFIC COORDINATOR Ot K58.2 MIXED IRRITABLE BOWEL SYNDROME 08/13/2019 CINDY GUADALUPE FAC, [facility] CCDS Ot R00.2 PALPITATIONS 08/13/2019 YU SAMUEL BROADCAST TRAFFIC COORDINATOR Ot R56.9 UNSPECIFIED CONVULSIONS 08/13/2019 YU SAMUEL BROADCAST TRAFFIC COORDINATOR Ot Z45.2 ENCOUNTER FOR ADJUSTMENT AND MANAGEMENT 09/03/2019 YU SAMUEL BROADCAST TRAFFIC COORDINATOR Ot R56.9 UNSPECIFIED CONVULSIONS 09/03/2019 YU SAMUEL BROADCAST TRAFFIC COORDINATOR Ot Z45.2 ENCOUNTER FOR ADJUSTMENT AND MANAGEMENT 09/04/2019 YU SAMUEL BROADCAST TRAFFIC COORDINATOR Ot R56.9 UNSPECIFIED CONVULSIONS 09/04/2019 YU SAMUEL BROADCAST TRAFFIC COORDINATOR Ot Z45.2 ENCOUNTER FOR ADJUSTMENT AND MANAGEMENT 09/09/2019 YU SAMUEL BROADCAST TRAFFIC COORDINATOR Ot R56.9 UNSPECIFIED CONVULSIONS 09/09/2019 YU SAMUEL BROADCAST TRAFFIC COORDINATOR Ot Z45.2 ENCOUNTER FOR ADJUSTMENT AND MANAGEMENT 09/14/2019 YU SAMUEL BROADCAST TRAFFIC COORDINATOR Ot R56.9 UNSPECIFIED CONVULSIONS 09/14/2019 YU SAMUEL BROADCAST TRAFFIC COORDINATOR Ot Z45.2 ENCOUNTER FOR ADJUSTMENT AND MANAGEMENT 10/03/2019 YU SAMUEL BROADCAST TRAFFIC COORDINATOR Ot R56.9 UNSPECIFIED CONVULSIONS 10/03/2019 YU SAMUEL BROADCAST TRAFFIC COORDINATOR Ot Z45.2 ENCOUNTER FOR ADJUSTMENT AND MANAGEMENT 10/22/2019 YU SAMUEL BROADCAST TRAFFIC COORDINATOR Ot R56.9 UNSPECIFIED CONVULSIONS 10/22/2019 YU SAMUEL BROADCAST TRAFFIC COORDINATOR Ot Z45.2 ENCOUNTER FOR ADJUSTMENT AND MANAGEMENT 11/29/2019 GILDARDO ROSENTHAL MD Ot 272 .0 PURE HYPERCHOLESTEROLEM 11/29/2019 GILDARDO ROSENTHAL MD Ot 278.00 OBESITY, NOS 11/29/2019 GILDARDO ROSENTHAL MD Ot 790 .6 ABN BLOOD CHEMISTRY NEC 11/29/2019 GILDARDO ROSENTHAL MD Ot 799.02 HYPOXEMIA 11/29/2019 GILDARDO ROSENTHAL MD Ot 786.50 CHEST PAIN NOS 11/29/2019 Ot K21.9 [place] RO-ESOPHAGEAL REFLUX DISEASE WITHOUT 11/29/2019 Ot Z01.818 EN COUNTER FOR OTHER PREPROCEDURAL EXAMIN 11/29/2019 GILDARDO ROSENTHAL MD Ot M25.561 PAIN IN RIGHT KNEE 11/29/2019 GILDARDO ROSENTHAL MD Ot M25.511 PAIN IN RIGHT SHOULDER 11/29/2019 GILDARDO ROSENTHAL MD Ot M25.561 PAIN IN RIGHT KNEE 11/29/2019 MIKE PINTO MD Ot R32 UNSPECIFIED URINARY INCONTINENCE 11/29/2019 MIKE PINTO MD Ot R35.0 FREQUENCY OF MICTURITION 11/29/2019 GILDARDO ROSENTHAL MD Ot M51.34 OTHER INTERVERTEBRAL DISC DEGENERATION, 11/29/2019 GILDARDO ROSENTHAL MD Ot M51.35 OTHER INTERVERTEBRAL DISC DEGENERATION, 11/29/2019 GILDARDO ROSENTHAL MD Ot M54 .5 LOW BACK PAIN 11/29/2019 BRISEIDA CIFUENTES Ot M25.512 PAIN IN LEFT SHOULDER 11/29/2019 GILDARDO ROSENTHAL MD Ot Z12.31 ENCNTR SCREEN MAMMOGRAM FOR MALIGNANT NE 11/29/2019 GILDARDO ROSENTHAL MD Ot N64.89 OTHER SPECIFIED DISORDERS OF BREAST 11/29/2019 GILDARDO ROSENTHAL MD Ot N64.89 OTHER SPECIFIED DISORDERS OF BREAST 11/29/2019 GILDARDO ROSENTHAL MD Ot Z45 .2 ENCOUNTER FOR ADJUSTMENT AND MANAGEMENT 11/29/2019 JAY LANZA MD Ot B37.89 OTHER SITES OF CANDIDIASIS 11/29/2019 JAY LANZA MD Ot L98 .9 DISORDER OF THE SKIN AND SUBCUTANEOUS TI 11/29/2019 CINDY GUADALUPE FAC, ALI FACP CCDS Ot I73.9 PERIPHERAL VASCULAR DISEASE, UNSPECIFIED 11/29/2019 YU SAMUEL Ot F3 9 UNSPECIFIED MOOD [AFFECTIVE] DISORDER 11/29/2019 YU SAMUEL Ot F90.0 ATTN-DEFCT HYPERACTIVITY DISORDER, PREDO 11/29/2019 YU SAMUELP Ot K58.2 MIXED IRRITABLE BOWEL SYNDROME 11/29/2019 CINDY GUADALUPE FAC, ALI FACP CCDS Ot R00.2 PALPITATIONS 11/29/2019 YU SAMUEL BROADCAST TRAFFIC COORDINATOR Ot R56.9 UNSPECIFIED CONVULSIONS 11/29/2019 YU SAMUELP Ot Z45.2 ENCOUNTER FOR ADJUSTMENT AND MANAGEMENT 11/30/2019 YU SAMUEL BROADCAST TRAFFIC COORDINATOR Ot R56.9 UNSPECIFIED CONVULSIONS 12/13/2019 YU SAMUEL BROADCAST TRAFFIC COORDINATOR Ot R56.9 UNSPECIFIED CONVULSIONS 12/13/2019 YU SAMUEL BROADCAST TRAFFIC COORDINATOR Ot Z45.2 ENCOUNTER FOR ADJUSTMENT AND MANAGEMENT 12/14/2019 YU SAMUEL BROADCAST TRAFFIC COORDINATOR Ot R56.9 UNSPECIFIED CONVULSIONS 12/14/2019 YU SAMUEL BROADCAST TRAFFIC COORDINATOR Ot Z45.2 ENCOUNTER FOR ADJUSTMENT AND MANAGEMENT 12/20/2019 YU SAMUEL BROADCAST TRAFFIC COORDINATOR Ot R56.9 UNSPECIFIED CONVULSIONS 02/11/2020 YU SAMUEL BROADCAST TRAFFIC COORDINATOR Ot R56.9 UNSPECIFIED CONVULSIONS 02/11/2020 YU SAMUEL BROADCAST TRAFFIC COORDINATOR Ot Z45.2 ENCOUNTER FOR ADJUSTMENT AND MANAGEMENT 02/11/2020 YU SAMUEL BROADCAST TRAFFIC COORDINATOR Ot R56.9 UNSPECIFIED CONVULSIONS 02/11/2020 YU SAMUEL BROADCAST TRAFFIC COORDINATOR Ot Z45.2 ENCOUNTER FOR ADJUSTMENT AND MANAGEMENT 02/14/2020 YU SAMUEL BROADCAST TRAFFIC COORDINATOR Ot R56.9 UNSPECIFIED CONVULSIONS 02/14/2020 YU SAMUEL BROADCAST TRAFFIC COORDINATOR Ot Z45.2 ENCOUNTER FOR ADJUSTMENT AND MANAGEMENT 02/14/2020 YU SAMUEL BROADCAST TRAFFIC COORDINATOR Ot Z95.828 PRESENCE OF OTHER VASCULAR IMPLANTS AND 03/14/2020 YU SAMUEL BROADCAST TRAFFIC COORDINATOR Ot R56.9 UNSPECIFIED CONVULSIONS Procedures Code Description Performed By Per formed On 38.93 VENO US CATHETERIZATION NEC 12/23/2005 93.39 PHYS ICAL THERAPY [facility] 12/27/2005 93793 PSYC H DIAGNOSTIC EVALUATION 01/30/2014 Results Test Result Range Complete urinalysis with reflex to cultu re - 05/17/16 13:33 Urine color determination YELLOW NRG Urine clarity determination VERY CLOUDY NRG Urine pH measurement by test strip 6 5-9 Specific gravity of urine by test strip 1.015 1.016-1.022 Urine protein assay by test strip, semi-quantitative 3+ NEGATIVE Urine glucose detection by automated test strip NE GATIVE NEGATIVE Erythrocytes detection in urine sediment by light micr oscopy 5+ NEGATIVE Urine ketones detection by automated test strip NE GATIVE NEGATIVE Urine nitrite detection by test strip POSITIVE NEGATIVE Urine total bilirubin detection by test strip NEGA TIVE NEGATIVE Urine urobilinogen measurement by automated test strip (mass/volume) NORMAL NORMAL Urine leukocyte esterase detection by dipstick 3+ NEGATIVE Automated urine sediment erythrocyte cou nt by microscopy (number/high power field) > [HPF] NRG Automated urine sediment leukocyte count by microscopy (number/high power field) TNTC NRG Bacteria detection in urine sediment by light microsco py TRACE NRG Squamous epithelial cells detection in u rine sediment by light microscopy 2-5 NRG Crystals detection in urine sediment by light microsco py NONE NRG Casts detection in urine sediment by light microscopy NONE NRG Mucus detection in urine sediment by light microscopy NEGATIVE NRG Complete urinalysis with reflex to culture YES NRG Renal epithelial cells detection in urin e sediment by light microscopy NONE NRG Bacterial urine culture - 05/17/16 13:33 Bacterial urine culture [id number] NRG COLONY COUNT <10,000 NRG FTX;REPORTABLE SENSITIVITY REPORTED 05/19/16 11:30 NRG URINE CULTURE RESULTS <10,000/ML NRG Bacterial susceptibility panel - 6 13:33 Gentamicin susceptibility test by minimum inhibitory c oncentration <= NRG Trimethoprim/sulfamethoxazole susceptibi lity test by minimum inhibitoryconcentration <= NRG Ampicillin susceptibility test by minimum inhibitory c oncentration 8 NRG Tobramycin susceptibility test by minimum inhibitory c oncentration <= NRG Cefazolin susceptibility test by minimum inhibitory co ncentration <= NRG Ceftriaxone susceptibility test by minimum inhibitory concentration <= NRG Ampicillin/sulbactam susceptibility test by minimum inhibitory concentration 4 NRG Piperacillin/tazobactam susceptibility t est by minimum inhibitory concentration 8 NRG Ciprofloxacin susceptibility test by minimum inhibitor y concentration <= NRG Meropenem susceptibility test by minimum inhibitory co ncentration <= NRG Nitrofurantoin susceptibility test by mi nimum inhibitory concentration <= NRG Aztreonam susceptibility test by minimum inhibitory co ncentration <= NRG Extended spectrum beta lactamase (ESBL) producing [...] g/dL 6.0-8.3 Thyroid Stimulating Hormone - 04/25/17 1 5:02 TSH 1.34 mIU/mL 0.32-5.00 Gram stain microscopy - 08/12/17 13:34 GRAM STAIN RESULT FEW WBC'S, NO BACTERIA OBSERVED NRG Bacteria identification in wound by cult ure - 08/12/17 13:34 Bacteria identification in wound by culture [id number] NRG FREE TEXT EXTERNAL ID/SENSITIVITY REPORTED 7 NRG QUANTITY OF GROWTH Scant Growth NRG FREE TEXT ENTRY 2 BY [facility] NRG Bacterial susceptibility panel - 7 13:34 Gentamicin susceptibility test by minimum inhibitory c oncentration <= NRG Trimethoprim/sulfamethoxazole susceptibi lity test by minimum inhibitoryconcentration <= NRG Tobramycin susceptibility test by minimum inhibitory c oncentration <= NRG Cefazolin susceptibility test by minimum inhibitory co ncentration R NRG Ceftriaxone susceptibility test by minimum inhibitory concentration <= NRG Piperacillin/tazobactam susceptibility t est by minimum inhibitory concentration <= NRG Ciprofloxacin susceptibility test by minimum inhibitor y concentration <= NRG Meropenem susceptibility test by minimum inhibitory co ncentration <= NRG Aztreonam susceptibility test by minimum inhibitory co ncentration <= NRG Bacterial susceptibility panel - 7 13:34 Gentamicin susceptibility test by minimum inhibitory c oncentration S NRG Trimethoprim/sulfamethoxazole susceptibi lity test by minimum inhibitoryconcentration S NRG Ampicillin susceptibility test by minimum inhibitory c oncentration S NRG Cefazolin susceptibility test by minimum inhibitory co ncentration S NRG Ceftriaxone susceptibility test by minimum inhibitory concentration S NRG Piperacillin/tazobactam susceptibility t est by minimum inhibitory concentration S NRG Ciprofloxacin susceptibility test by minimum inhibitor y concentration S NRG Meropenem susceptibility test by minimum inhibitory co ncentration S NRG Serum or plasma phenytoin measurement (m ass/volume) - 10/04/17 15:06 Serum or plasma phenytoin measurement (mass/volume) 11.0 ug/mL 10.0-20.0 TSH - 10/13/17 14:46 TSH 1.88 mIU/L NRG Methicillin resistant Staphylococcus aur eus (MRSA) screening culture - 10/19/17 08:55 MRSA SCREEN RESULT MRSA ISOLATED NRG GGT - 10/28/17 11:59 GGT 303 U/L 3-55 DILANTIN - 04/06/18 14:49 PHENYTOIN 16.7 mg/L 10.0-20.0 CMP - 09/04/18 11:03 GLUCOSE 87 mg/dL 65-99 UREA NITROGEN (BUN) 9 mg/dL 7-25 CREATININE 0.78 mg/dL 0.50-1.10 eGFR NON-AFR. KYRGYZ 92 mL/min/1.73m2 > OR = 60 eGFR 107 mL/min/1.73m2 > OR = 60 BUN/CREATININE RATIO NOT APPLICABLE (calc) 6-22 SODIUM 141 mmol/L 135-146 POTASSIUM 4.5 mmol/L 3.5-5.3 CHLORIDE 106 mmol/L 98-110 CARBON DIOXIDE 26 mmol/L 20-32 CALCIUM 9.6 mg/dL 8.6-10.2 PROTEIN, TOTAL 7.0 g/dL 6.1-8.1 ALBUMIN 4.8 g/dL 3.6-5.1 GLOBULIN 2.2 g/dL (calc) 1.9-3.7 ALBUMIN/GLOBULIN RATIO 2.2 (calc) 1.0-2. 5 BILIRUBIN, TOTAL 0.3 mg/dL 0.2-1.2 ALKALINE PHOSPHATASE 306 U/L 33-115 AST 16 U/L 10-30 ALT 21 U/L 6-29 DIFFERENTIAL, MANUAL - 01/26/19 13:05 ABSOLUTE NEUTROPHILS 2604 cells/uL 1500- 7800 ABSOLUTE MONOCYTES 168 cells/uL 200-950 ABSOLUTE EOSINOPHILS 0 cells/uL 15-500 ABSOLUTE BASOPHILS 42 cells/uL 0-200 NEUTROPHILS 62.0 % NRG LYMPHOCYTES 33.0 % NRG MONOCYTES 4.0 % NRG EOSINOPHILS 0 % NRG BASOPHILS 1.0 % NRG ABSOLUTE LYMPHOCYTES 1386 cells/uL 850-3 900 PLATELET ESTIMATION ADEQUATE ADEQUATE CULTURE, URINE - 05/14/19 14:59 CULTURE, URINE, ROUTINE SEE NOTE NRG DILANTIN (PHENYTOIN) - 11/29/19 11:10 DILANTIN PHEN 4.4 % 10.0-20.0 DILANTIN - 02/06/20 10:10 PHENYTOIN 17.5 mg/L 10.0-20.0 Encounters ACCT No. Visit Date/Time Discharge Status Pt. Type Provider Facility Loc./Unit Complaint [id number] 01/30/2014 12:33:00 01/30/2014 23:59: 59 CLS Outpatient CRISTAL SULLIVAN, LISA Bah [id number] 02/11/2020 11:19:00 23:59:59 CLS Outpatient YU SAMUEL [facility] VASCULAR ACCESS DEVICE [id number] 09/14/2019 13:13:00 00:01:00 DIS Outpatient YU SAMUEL [facility] VASCULAR ACCESS DEVICE [id number] 11/29/2019 10:24:00 23:59:59 CLS Outpatient YU SAMUEL [facility] R56.9 [id number] 07/31/2019 09:23:00 00:01:00 DIS Outpatient YU SAMUEL [facility] VASCULAR ACCESS DEVICE [id number] 08/07/2019 11:58:00 13:41:00 DIS Emergency AWADCHASITY APRN [facility] ER FALL [id number] 04/09/2019 11:00:00 00:01:00 DIS Outpatient YU SAMUEL [facility] VASCULAR ACCESS DEVICE [id number] 01/05/2019 11:41:00 00:01:00 DIS Outpatient YU SAMUEL [facility] VASCULAR ACCESS DEVICE [id number] 01/10/2019 10:47:00 23:59:59 CLS Preadmit JANNETH ZHAO Via [facility] CARD SINUS TACHYCARDIA [id number] 10/05/2018 10:56:00 00:01:00 DIS Outpatient YU SAMUEL [facility] VASCULAR ACCESS DEVICE [id number] 07/24/2018 12:24:00 23:59:59 CLS Preadmit YU SAMUEL [facility] SLEEP CECI G47.33 [id number] 06/01/2018 09:44:00 018 00:01:00 DIS Outpatient YU SAMUEL [facility] VASCULAR ACCESS DEVICE [id number] 06/16/2018 09:17:00 018 13:15:00 DIS Outpatient MARGO FRANCISCO MD [facility] ENDO DIARRHEA/DYSPHAGIA [id number] 06/15/2018 05:41:00 018 09:40:00 DIS Outpatient MARGO FRANCISCO MD [facility] PREOP COLONOSCOPY/EGD [id number] 03/10/2018 12:23:00 018 14:28:00 DIS Emergency CHASITY AWAD APRN [facility] ER FALL/HEAD/BACK [id number] 03/06/2018 10:18:00 23:59:59 CLS Outpatient CINDY GUADALUPE FACC, LOLY TEJADA CC DS [facility] CARD PALPITATION S [id number] 02/16/2018 11:18:00 018 00:01:00 DIS Outpatient YU SAMUEL [facility] VASCULAR ACCESS DEVICE [id number] 10/19/2017 08:22:00 018 13:58:00 DIS Outpatient IVA LAL MD [facility] NON-FUNCTIONING PORT,P OOR VENOUS ACCESS [id number] 10/14/2017 05:31:00 018 12:00:00 DIS Outpatient IVA LAL MD [facility] PREOP NON-FUNCTIONING PORT,P OOR VENOUS ACCESS [id number] 10/04/2017 12:44:00 018 23:59:59 CLS Outpatient YU SAMUEL [facility] LAB F39 F90.0 K58.2 R56.9 [id number] 10/04/2017 12:42:00 018 23:59:59 CLS Outpatient CINDY GUADALUPE FACC, LOLY TEJADA CC DS [facility] RAD CLAUDJULIET N [id number] 08/16/2017 12:32:00 017 23:59:59 CLS Outpatient JAY LANZA MD [facility] WOUNDCARE [id number] 08/12/2017 12:33:00 017 14:29:00 DIS Emergency AROLDO AUGUSTE MD [facility] ER COMPLAINS OF CYST IN [facility] [id number] 08/11/2017 20:00:00 017 06:49:00 DIS Outpatient GILDARDO ROSENTHAL MD [facility] SLEEP HYPOXIA, OBSERVED APNEA S [id number] 05/18/2017 00:15:00 017 23:59:59 CLS Preadmit GILDARDO ROSENTHAL MD [facility] 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 [id number] 02/16/2017 12:30:00 017 00:01:00 DIS Outpatient GILDARDO ROSENTHAL MD [facility] DETENTION [place] PLAC EMENT [id number] 02/16/2017 12:25:00 017 23:59:59 CLS Outpatient GILDARDO ROSENTHAL MD [facility] RAD MEDIAL R BREAST ASYMMET RY N64.89 [id number] 01/21/2017 12:49:00 017 23:59:59 CLS Outpatient GILDARDO ROSENTHAL MD [facility] RAD Z12.31 [id number] 11/24/2016 11:43:00 017 23:59:59 CLS Outpatient BRISEIDA CIFUENTES [facility] RAD 2 MONTH HX LT S HOULDER PAIN [id number] 11/14/2016 16:21:00 017 17:25:00 DIS Emergency VINCENT GOMEZ MD [facility] ER HEAD INJ [id number] 06/11/2016 11:35:00 016 23:59:59 CLS Outpatient GILDARDO ROSENTHAL MD [facility] RAD CHRONIC BACK PAIN [id number] 05/17/2016 13:23:00 016 23:59:59 CLS Outpatient MIKE PINTO MD [facility] LAB INC AWARENESS AND FREQU ENCY [id number] 03/19/2016 11:35:00 016 23:59:59 CLS Outpatient GILDARDO ROSENTHAL MD [facility] RAD KNEE PAIN,SHOULDER PAIN [id number] 03/12/2016 13:07:00 016 23:59:59 CLS Outpatient GILDARDO ROSENTHAL MD [facility] RAD RT KNEE PAIN [id number] 01/29/2016 12:24:00 016 14:05:00 DIS Emergency ARAMIS RUBIO [facility] ER HEAD LAC [id number] 10/22/2015 10:16:00 016 13:35:00 DIS Outpatient MARGO FRANCISCO MD [facility] SDC REFLEX [id number] 03/04/2015 11:49:00 015 23:59:59 CLS Outpatient GILDARDO ROSENTHAL MD [facility] RAD L RIB PAIN [id number] 10/09/2014 08:32:00 015 23:59:59 CLS Outpatient GILDARDO ROSENTHAL MD [facility] LAB ELEVATED LFT,HYPOXIA [id number] 04/19/2014 11:55:00 014 13:51:00 DIS Emergency 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 [facility] ER FALL [id number] 11/19/2013 10:04:00 014 23:59:59 CLS Outpatient GILDARDO ROSENTHAL MD [facility] RAD ABD PAIN, [id number] 11/13/2013 14:16:00 014 23:59:59 CLS Outpatient GILDARDO ROSENTHAL MD [facility] RAD ABD PAIN [id number] 08/31/2013 12:25:00 013 23:59:59 CLS Outpatient GILDARDO ROSENTHAL MD [facility] RAD COUGH PROD [id number] 08/02/2013 08:28:00 23:59:59 CLS Outpatient CINDY GUADALUPE FACC, LOLY TEJADA CC DS [facility] RAD ANGINA,SOB [id number] 07/12/2013 16:42:00 23:59:59 CLS Outpatient NATALIE QUINTANA MD [facility] ORTHO [id number] 06/14/2013 16:35:00 23:59:59 CLS Outpatient NATALIE QUINTANA MD [facility] ORTHO [id number] 05/22/2013 13:55:00 17:00:00 DIS Emergency ARAMIS RUBIO [facility] ER RIGHT FOOT INJURY [id number] 03/14/2020 15:51:[address] Emergency CHASITY AWAD APRN [facility] ER FALL [id number] 08/13/2019 10:31:00 Document Registration [id number] 08/13/2019 10:31:00 Document Registration [id number] 08/13/2019 10:31:00 Document Registration [id number] 08/13/2019 10:31:00 Document Registration [id number] 08/13/2019 10:30:00 Document Registration [id number] 08/13/2019 10:30:00 Document Registration [id number] 08/13/2019 10:30:00 Document Registration [id number] 08/13/2019 10:30:00 Document Registration [id number] 08/13/2019 10:30:00 Document Registration [id number] 08/13/2019 10:30:00 Document Registration [id number] 08/13/2019 10:30:00 Document Registration [id number] 08/13/2019 10:30:00 Document Registration [id number] 08/13/2019 10:30:00 Document Registration [id number] 08/13/2019 10:30:00 Document Registration [id number] 08/13/2019 10:30:00 Document Registration [id number] 08/13/2019 10:30:00 Document Registration [id number] 08/13/2019 10:30:00 Document Registration [id number] 08/13/2019 10:30:00 Document Registration [id number] 08/13/2019 10:30:00 Document Registration [id number] 08/13/2019 10:30:00 Document Registration [id number] 08/13/2019 10:30:00 Document Registration [id number] 08/13/2019 10:30:00 Document Registration [id number] 08/13/2019 10:30:00 Document Registration [id number] 08/13/2019 10:30:00 Document Registration [id number] 08/13/2019 10:30:00 Document Registration [id number] 08/13/2019 10:30:00 Document Registration [id number] 08/13/2019 10:30:00 Document Registration [id number] 08/13/2019 10:30:00 Document Registration [id number] 08/13/2019 10:30:00 Document Registration [id number] 08/13/2019 10:30:00 Document Registration [id number] 08/13/2019 10:29:00 Document Registration [id number] 08/13/2019 10:29:00 Document Registration [id number] 08/13/2019 10:29:00 Document Registration [id number] 08/13/2019 10:29:00 Document Registration [id number] 08/13/2019 10:29:00 Document Registration [id number] 08/13/2019 10:29:00 Document Registration [id number] 08/13/2019 10:29:00 Document Registration [id number] 08/13/2019 10:29:00 Document Registration [id number] 08/13/2019 10:29:00 Document Registration [id number] 08/13/2019 10:29:00 Document Registration [id number] 08/13/2019 10:29:00 Document Registration [id number] 08/13/2019 10:29:00 Document Registration [id number] 08/13/2019 10:29:00 Document Registration [id number] 08/13/2019 10:29:00 Document Registration [id number] 08/13/2019 10:29:00 Document Registration [id number] 08/13/2019 10:29:00 Document Registration [id number] 08/13/2019 10:29:00 Document Registration [id number] 08/13/2019 10:29:00 Document Registration [id number] 08/13/2019 10:29:00 Document Registration [id number] 08/13/2019 10:29:00 Document Registration [id number] 08/13/2019 10:29:00 Document Registration [id number] 08/13/2019 10:29:00 Document Registration [id number] 08/13/2019 10:29:00 Document Registration [id number] 08/13/2019 10:29:00 Document Registration [id number] 08/13/2019 10:29:00 Document Registration [id number] 08/13/2019 10:29:00 Document Registration [id number] 08/13/2019 10:29:00 Document Registration [id number] 08/13/2019 10:29:00 Document Registration [id number] 08/13/2019 10:29:00 Document Registration [id number] 08/13/2019 10:29:00 Document Registration [id number] 08/13/2019 10:29:00 Document Registration [id number] 08/13/2019 10:29:00 Document Registration [id number] 08/13/2019 10:29:00 Document Registration [id number] 08/13/2019 10:29:00 Document Registration [id number] 08/13/2019 10:29:00 Document Registration [id number] 08/13/2019 10:29:00 Document Registration [id number] 08/13/2019 10:29:00 Document Registration [id number] 08/13/2019 10:29:00 Document Registration [id number] 08/13/2019 10:29:00 Document Registration [id number] 08/13/2019 10:29:00 Document Registration [id number] 08/13/2019 10:29:00 Document Registration [id number] 08/13/2019 10:29:00 Document Registration [id number] 08/13/2019 10:28:00 Document Registration [id number] 08/13/2019 10:28:00 Document Registration [id number] 08/13/2019 10:28:00 Document Registration [id number] 08/13/2019 10:28:00 Document Registration [id number] 08/13/2019 10:28:00 Document Registration [id number] 08/13/2019 10:28:00 Document Registration [id number] 08/13/2019 10:28:00 Document Registration [id number] 08/13/2019 10:28:00 Document Registration [id number] 08/13/2019 10:28:00 Document Registration [id number] 08/13/2019 10:28:00 Document Registration [id number] 08/13/2019 10:28:00 Document Registration [id number] 08/13/2019 10:28:00 Document Registration [id number] 08/13/2019 10:28:00 Document Registration [id number] 08/13/2019 10:28:00 Document Registration [id number] 08/13/2019 10:28:00 Document Registration [id number] 08/13/2019 10:28:00 Document Registration [id number] 08/13/2019 10:28:00 Document Registration [id number] 08/13/2019 10:28:00 Document Registration [id number] 08/13/2019 10:28:00 Document Registration [id number] 08/13/2019 10:28:00 Document Registration [id number] 08/13/2019 10:28:00 Document Registration [id number] 08/13/2019 10:28:00 Document Registration [id number] 08/13/2019 10:28:00 Document Registration [id number] 08/13/2019 10:28:00 Document Registration [id number] 08/13/2019 10:28:00 Document Registration [id number] 08/13/2019 10:28:00 Document Registration [id number] 08/13/2019 10:28:00 Document Registration [id number] 08/13/2019 10:28:00 Document Registration [id number] 08/13/2019 10:28:00 Document Registration [id number] 08/13/2019 10:28:00 Document Registration [id number] 08/13/2019 10:28:00 Document Registration [id number] 10/16/2015 16:33:00 Document Registration [id number] 09/27/2012 00:00:00 Document Registration [id number] 08/10/2012 11:47:00 Document Registration [id number] 04/25/2012 11:00:00 Document Registration [id number] 12/29/2011 13:35:00 Document Registration [id number] 10/26/2011 09:23:00 Document Registration [id number] 10/26/2011 09:17:00 Document Registration [id number] 09/14/2011 12:15:00 Document Registration [id number] 07/26/2011 15:13:00 Document Registration [id number] 07/23/2011 11:19:00 Document Registration [id number] 05/26/2011 10:56:00 Document Registration [id number] 03/04/2011 17:57:00 Document Registration [id number] 03/02/2011 11:33:00 Document Registration [id number] 01/18/2011 12:31:00 Document Registration [id number] 01/18/2011 11:47:00 Document Registration [id number] 09/28/2010 08:43:00 Document Registration [id number] 09/28/2010 08:35:00 Document Registration [id number] 09/28/2010 08:31:00 Document Registration [id number] 07/22/2010 12:09:00 Document Registration [id number] 07/20/2010 11:31:00 Document Registration [id number] 07/08/2010 10:53:00 Document Registration [id number] 07/01/2010 10:00:00 Document Registration [id number] 07/01/2010 09:38:00 Document Registration [id number] 06/30/2010 10:42:00 Document Registration [id number] 06/15/2010 09:54:00 Document Registration [id number] 04/28/2010 20:19:00 Document Registration [id number] 04/03/2010 17:27:00 Document Registration [id number] 03/16/2010 11:25:00 Document Registration [id number] 02/18/2010 09:22:00 Document Registration [id number] 02/02/2010 13:52:00 Document Registration [id number] 01/26/2010 13:03:00 Document Registration [id number] 01/16/2010 09:34:00 Document Registration [id number] 01/09/2010 15:10:00 Document Registration [id number] 10/25/2009 12:21:00 Document Registration [id number] 10/16/2009 14:03:00 Document Registration [id number] 10/16/2009 13:56:00 Document Registration [id number] 10/09/2009 11:43:00 Document Registration [id number] 09/16/2009 10:32:00 Document Registration [id number] 08/27/2009 15:06:00 Document Registration [id number] 07/23/2009 10:35:00 Document Registration [id number] 06/16/2009 14:08:00 Document Registration [id number] 06/12/2009 15:04:00 Document Registration [id number] 05/12/2009 12:43:00 Document Registration [id number] 04/16/2009 14:07:00 Document Registration [id number] 03/17/2009 09:29:00 Document Registration [id number] 03/14/2009 13:40:00 Document Registration [id number] 12/02/2008 12:33:00 Document Registration [id number] 11/15/2008 13:14:00 Document Registration [id number] 10/23/2008 13:57:00 Document Registration [id number] 08/29/2008 20:27:00 Document Registration [id number] 08/19/2008 13:48:00 Document Registration [id number] 07/12/2008 12:30:00 Document Registration [id number] 07/12/2008 12:12:00 Document Registration [id number] 07/08/2008 10:57:00 Document Registration [id number] 07/05/2008 11:42:00 Document Registration [id number] 06/25/2008 12:34:00 Document Registration [id number] 06/18/2008 14:24:00 Document Registration [id number] 06/14/2008 13:37:00 Document Registration [id number] 02/22/2008 10:36:00 Document Registration [id number] 02/06/2008 09:09:00 Document Registration [id number] 01/02/2008 13:52:00 Document Registration [id number] 01/01/2008 08:31:00 Document Registration [id number] 12/15/2007 11:05:00 Document Registration [id number] 11/30/2007 13:25:00 Document Registration [id number] 11/05/2007 19:14:00 Document Registration [id number] 05/09/2007 14:00:00 Document Registration [id number] 09/15/2006 10:20:00 Document Registration [id number] 08/11/2006 11:23:00 Document Registration [id number] 01/31/2006 10:08:00 Document Registration [id number] 01/27/2006 17:02:00 Document Registration [id number] 12/23/2005 14:59:00 Document Registration [id number] 04/25/2017 15:00:00 04/25/2017 23:59: 00 DIS Outpatient Gildardo Rosenthal [id number] 11/19/2016 14:45:00 11/19/2016 23:59: 00 DIS Outpatient Gildardo Rosenthal [id number] 09/17/2016 14:28:00 09/17/2016 23:59: 00 DIS Outpatient Gildardo Rosenthal [id number] 06/22/2016 13:53:00 07/08/2016 11:40: 00 DIS Outpatient Gildardo Rosenthal [id number] 07/22/2017 13:31:00 Document Registration [id number] 03/13/2020 13:00:00 ACT Outpatient YU SAMUEL [facility]N [facility] [id number] 02/06/2020 09:40:00 Document Registration [id number] 05/14/2019 11:40:00 Document Registration [id number] 01/26/2019 12:55:00 Document Registration [id number] 09/04/2018 10:40:00 Document Registration [id number] 04/06/2018 15:00:00 Document Registration [id number] 10/28/2017 11:00:00 Document Registration [id number] 10/13/2017 14:20:00 Document Registration
== END 2020-03-14 17:15 | disposition home or self-care (01) ==
LOC: EDUNIT# 15:50 → ER 15:51
DX: S80.211A Abrasion, right knee, initial encounter (principal); S90.411A Abrasion, right great toe, initial encounter; S50.312A Abrasion of left elbow, initial encounter; J45.909 Unspecified asthma, uncomplicated; I10 Essential (primary) hypertension; F90.9 Attention-deficit hyperactivity disorder, unspecified type; F41.9 Anxiety disorder, unspecified; G40.909 Epilepsy, unspecified, not intractable, without status epilepticus; G43.909 Migraine, unspecified, not intractable, without status migrainosus; Z91.040 Latex allergy status; Z88.2 Allergy status to sulfonamides; Z88.0 Allergy status to penicillin; Z88.1 Allergy status to other antibiotic agents; Z88.5 Allergy status to narcotic agent; Z88.8 Allergy status to other drugs, medicaments and biological substances; Z79.82 Long term (current) use of aspirin; Z79.52 Long term (current) use of systemic steroids; V00.811A Fall from moving wheelchair (powered), initial encounter
CPT/HCPCS: 72100; 73080; 73562; 73620; 73630

== ENCOUNTER → 2020-04-01 | Outpatient (CLI) | payer MEDICARE, MEDICAID ==
[~2020-04-01] MED LIST changes: +CATHETER FLUSH 10 ML SYR IV PRN; +HOLD METFORMIN - RECEIVED CONTRAST 20 ML VIAL IV SCH; +IOHEXOL 350 MG/ML 100 ML (OMNIPAQUE 350) VIAL IV ONE; +NS 100 ML (IVPB) BAG IV ONE
--- NOTE | 2020-04-01 12:02 | Diagnostic Imaging Report ---
PROCEDURE: CT abdomen with contrast only. TECHNIQUE: Multiple contiguous axial images were obtained through the abdomen after the administration of intravenous contrast. Auto Exposure Controls were utilized during the CT exam to meet ALARA standards for radiation dose reduction. INDICATION: Left upper quadrant abdominal pain. Elevated liver enzymes and hepatomegaly. COMPARISON: Multiple priors, most recent performed on 11/19/2013. FINDINGS: LOWER THORAX: Mild basilar subsegmental atelectasis. Calcified mediastinal and hilar lymph nodes are again demonstrated, as is a calcified granuloma in the right lower lobe. Visualized heart is normal in size. LIVER: Normal. GALLBLADDER: Surgically absent. BILE DUCTS: No biliary ductal dilatation. SPLEEN: There is mild splenomegaly, similar appearance to prior exam, with splenic length measuring approximately 14 cm. There are scattered benign calcified granulomas in the splenic parenchyma. PANCREAS: Normal. No pancreatic ductal dilatation. ADRENAL GLANDS: No nodules. KIDNEYS AND UPPER URETERS: No hydronephrosis. Kidneys enhance symmetrically. No suspicious mass. No abnormality in the visualized ureters. STOMACH/UPPER GI TRACT: Stomach is physiologically-distended. No bowel obstruction. Visualized bowel demonstrates no inflammatory changes. PERITONEUM AND RETROPERITONEUM: No pneumoperitoneum. No abdominal free fluid or loculated collection. LYMPH NODES: No lymphadenopathy. VESSELS: Abdominal aorta is nonaneurysmal. No venous thrombosis. ABDOMINAL WALL: Unremarkable. BONES: Mild degenerative changes involve the spine. Incidental note is made of bilateral pars interarticularis defect of the L5 vertebral body. There is no associated spondylolisthesis of L5 on S1. No acute osseous abnormality. IMPRESSION: No acute abdominal or pelvic pathology. No significant change from prior, including unchanged mild splenomegaly. 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 Other chronic and incidental findings are detailed above. Dictated by: Dictated on workstation # [id number]
== END ==
LOC: RAD 09:41
PROVIDERS: ATTEND Nurse Practitioner Community Health
DX: R74.8 Abnormal levels of other serum enzymes (principal); R16.1 Splenomegaly, not elsewhere classified; M47.816 Spondylosis without myelopathy or radiculopathy, lumbar region
CPT/HCPCS: 74160

== ENCOUNTER 2020-08-04 13:41 | Outpatient (RCR) | payer MEDICAID, MEDICARE ==
[2020-05-29] MEDS: CATHETER FLUSH 10 ML SYR IV SCH (11:45)
[2020-05-29] MEDS: HEParin (CENTRAL IV FLUSH) 500 UNIT/5 ML SYR IV SCH (11:45)
[2020-05-29 12:00] VITALS: BP 124/94
[~2020-08-04] VITALS: Ht 149.9 cm; Wt 109.0 kg
[~2020-08-04 13:41] MED LIST changes: -CALC600T12 PO; -CATHETER FLUSH 10 ML SYR IV PRN; +CLC600T PO; +HEParin (CENTRAL IV FLUSH) 500 UNIT/5 ML SYR ONE; -HOLD METFORMIN - RECEIVED CONTRAST 20 ML VIAL IV SCH; -IOHEXOL 350 MG/ML 100 ML (OMNIPAQUE 350) VIAL IV ONE; -MONT10TA26 PO; +MONT10TA97 PO; -NS 100 ML (IVPB) BAG IV ONE; -PANT40TA3 PO; +PANT40TA52 PO
[2020-08-04] MEDS: HEParin (CENTRAL IV FLUSH) 500 UNIT/5 ML SYR IV SCH (13:47)
[2020-08-04] MEDS: CATHETER FLUSH 10 ML SYR IV SCH (13:49)
[2020-08-04 13:50] VITALS: BP 135/98
[2020-08-05] MEDS ORDERED: CEFD300C3 PO (13:42)
[2020-08-05] MEDS ORDERED: FURO-125 PO (14:46)
== END 2020-08-27 | disposition home or self-care (01) ==
LOC: SDC 13:41
PROVIDERS: ATTEND Nurse Practitioner Community Health
DX: Z45.2 Encounter for adjustment and management of vascular access device (principal); R56.9 Unspecified convulsions; Z95.828 Presence of other vascular implants and grafts
CPT/HCPCS: 96523

== ENCOUNTER 2020-08-05 12:58 | Emergency (ER) | payer MEDICARE, MEDICAID ==
[~2020-08-05] VITALS: Ht 149.8 cm; Wt 120.2 kg
[~2020-08-05 12:58] MED LIST changes: -HEParin (CENTRAL IV FLUSH) 500 UNIT/5 ML SYR ONE; +MONT10TA26 PO; -MONT10TA97 PO
[2020-08-05] MEDS ORDERED: CEFD300C3 PO (13:42)
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
[2020-08-05 13:44] LABS: BASOPHILS % (AUTO) 0 % (0-10); EOSINOPHILS % (AUTO) 0 % (0-10); HEMATOCRIT 33 % (35-52); LYMPHOCYTES # (AUTO) 1.5 10^3/uL (1.0-4.0); LYMPHOCYTES % (AUTO) 32 % (12-44); MEAN CORPUSCULAR HEMOGLOBIN 28 pg (25-34); MEAN CORPUSCULAR HGB CONC 31 g/dL (32-36); MEAN CORPUSCULAR VOLUME 90 fL (80-99); MEAN PLATELET VOLUME 9.3 fL (9.0-12.2); MONOCYTES # (AUTO) 0.4 10^3/uL (0.0-1.0); MONOCYTES % (AUTO) 9 % (0-12); NEUTROPHILS # (AUTO) 2.6 10^3/uL (1.8-7.8); NEUTROPHILS % (AUTO) 58 % (42-75); PLATELET COUNT 295 10^3/uL (130-400); WHITE BLOOD COUNT 4.6 10^3/uL (4.3-11.0)
[2020-08-05 14:01] LABS: BUN/CREATININE RATIO 8; CALCIUM 8.7 MG/DL (8.5-10.1); CARBON DIOXIDE 21 MMOL/L (21-32); CHLORIDE 109 MMOL/L (98-107); CREATININE SERUM 0.78 MG/DL (0.60-1.30); GFR ESTIMATED > 60; GLUCOSE 91 MG/DL (70-105); POTASSIUM 3.8 MMOL/L (3.6-5.0); SODIUM 139 MMOL/L (135-145)
--- NOTE | 2020-08-05 14:41 | Diagnostic Imaging Report ---
PROCEDURE: US left lower extremity venous. TECHNIQUE: Multiple real-time grayscale images were obtained over the left lower extremity in various projections. Additional duplex Doppler and color Doppler images were also obtained. INDICATION: Leg swelling. COMPARISON: None. FINDINGS: The left common femoral vein, femoral vein, deep femoral vein, and popliteal vein are normal in appearance. These vessels show normal compressibility, color flow and doppler augmentation. The visualized deep calf veins demonstrate no distinct intraluminal thrombus. IMPRESSION: 1. No sonographic evidence of deep venous thrombosis in the left lower extremity. Findings reported to Dr. Ely by the farm equipment operator following the examination. Dictated by: Dictated on workstation # [id number]
[2020-08-05] MEDS ORDERED: FURO-125 PO (14:46)
[2020-08-05 15:10] VITALS: BP 138/91
== END 2020-08-05 15:12 | disposition home or self-care (01) ==
LOC: EDUNIT# 12:58 → ER 13:00
DX: R60.0 Localized edema (principal); L03.116 Cellulitis of left lower limb; I10 Essential (primary) hypertension; F90.9 Attention-deficit hyperactivity disorder, unspecified type; J45.909 Unspecified asthma, uncomplicated; G40.909 Epilepsy, unspecified, not intractable, without status epilepticus; Z88.2 Allergy status to sulfonamides; Z88.1 Allergy status to other antibiotic agents; Z91.040 Latex allergy status; Z88.5 Allergy status to narcotic agent; Z88.8 Allergy status to other drugs, medicaments and biological substances; Z79.82 Long term (current) use of aspirin
CPT/HCPCS: 36415; 80048; 85025

== ENCOUNTER → 2020-09-03 | Outpatient (CLI) | payer MEDICARE, MEDICAID ==
[~2020-09-03] VITALS: Ht 149.9 cm; Wt 117.3 kg
[~2020-09-03] MED LIST changes: +CATHETER FLUSH 10 ML SYR IV SCH; +CEFD300C3 PO; +FURO-125 PO; +HEParin (CENTRAL IV FLUSH) 500 UNIT/5 ML SYR IV SCH; +HEParin (CENTRAL IV FLUSH) 500 UNIT/5 ML SYR ONE; -MONT10TA26 PO; +MONT10TA97 PO
[2020-09-03 10:25] VITALS: BP 107/82
== END ==
LOC: SDC 09:55
PROVIDERS: ATTEND Nurse Practitioner Community Health
DX: R56.9 Unspecified convulsions (principal)
CPT/HCPCS: 36415; 36591; 80185

== ENCOUNTER 2020-11-27 11:14 | Emergency (ER) | payer MEDICARE, MEDICAID ==
[~2020-11-27] VITALS: Ht 149.8 cm; Wt 118.1 kg
[~2020-11-27 11:14] MED LIST changes: -CATHETER FLUSH 10 ML SYR IV SCH; -HEParin (CENTRAL IV FLUSH) 500 UNIT/5 ML SYR IV SCH; -HEParin (CENTRAL IV FLUSH) 500 UNIT/5 ML SYR ONE; +MONT10TA32 PO; -MONT10TA97 PO
--- NOTE | 2020-11-27 12:15 | Diagnostic Imaging Report ---
INDICATION: Fall with injury to head with nausea and dizziness. TECHNIQUE: Multiple contiguous axial images were obtained through the brain without the use of intravenous contrast. Auto Exposure Controls were utilized during the CT exam to meet ALARA standards for radiation dose reduction. COMPARISON with prior study of 08/07/2019. There are no extra-axial fluid collections. No acute intracranial hemorrhage. No mass effect or midline shift. There are encephalomalacic changes versus old infarcts in the occipital lobes on both sides as well as in the left parietal lobe. There is ex vacuo dilatation of the left occipital horn. These findings all appear chronic compared to the previous study. There is no new hemorrhage or mass effect. Calvarial windows appear normal. IMPRESSION: No acute hemorrhage or calvarial fracture. There are encephalomalacic changes in the occipital lobes on both sides as well as in the left parietal lobe which are stable compared with 08/07/2019. Dictated by: Dictated on workstation # [id number]
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
[2020-11-27 12:32] VITALS: BP 133/89
== END 2020-11-27 12:33 | disposition home or self-care (01) ==
LOC: EDUNIT# 11:14 → ER 11:17
DX: S00.83XA Contusion of other part of head, initial encounter (principal); J45.909 Unspecified asthma, uncomplicated; I10 Essential (primary) hypertension; F90.9 Attention-deficit hyperactivity disorder, unspecified type; G40.909 Epilepsy, unspecified, not intractable, without status epilepticus; Z88.2 Allergy status to sulfonamides; Z88.1 Allergy status to other antibiotic agents; Z91.040 Latex allergy status; Z88.5 Allergy status to narcotic agent; Z88.8 Allergy status to other drugs, medicaments and biological substances; Z79.82 Long term (current) use of aspirin; W01.198A Fall on same level from slipping, tripping and stumbling with subsequent striking against other object, initial encounter
CPT/HCPCS: 70450

== ENCOUNTER 2021-02-26 12:31 | Outpatient (RCR) | payer MEDICARE, MEDICAID ==
[2020-12-01 14:30] VITALS: BP 132/87
[~2021-02-26 12:31] MED LIST changes: +CALC600T91 PO; -CLC600T PO; +HEParin (CENTRAL IV FLUSH) 500 UNIT/5 ML SYR IV ONE; +HEParin (CENTRAL IV FLUSH) 500 UNIT/5 ML SYR ONE
[2021-02-26 12:40] VITALS: BP 111/72
== END 2021-03-01 | disposition home or self-care (01) ==
LOC: SDC 12:31
PROVIDERS: ATTEND Nurse Practitioner Community Health
DX: R56.9 Unspecified convulsions (principal)
CPT/HCPCS: 96523

== ENCOUNTER 2021-04-02 19:15 | Emergency (ER) | payer MEDICARE, MEDICAID ==
[~2021-04-02 19:15] MED LIST changes: -HEParin (CENTRAL IV FLUSH) 500 UNIT/5 ML SYR IV ONE; -HEParin (CENTRAL IV FLUSH) 500 UNIT/5 ML SYR ONE
[2021-04-02 19:17] VITALS: BP 126/83
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
== END 2021-04-02 20:20 | disposition home or self-care (01) ==
LOC: EDUNIT# 19:15 → ER 19:17
DX: S09.93XA Unspecified injury of face, initial encounter (principal); S89.92XA Unspecified injury of left lower leg, initial encounter; J45.909 Unspecified asthma, uncomplicated; I10 Essential (primary) hypertension; G40.909 Epilepsy, unspecified, not intractable, without status epilepticus; F90.9 Attention-deficit hyperactivity disorder, unspecified type; Z79.82 Long term (current) use of aspirin; Z79.899 Other long term (current) drug therapy; W01.0XXA Fall on same level from slipping, tripping and stumbling without subsequent striking against object, initial encounter
CPT/HCPCS: 99282

== ENCOUNTER 2021-04-13 10:36 | Outpatient (CLI) | payer MEDICARE, MEDICAID ==
[2021-04-13 11:00] VITALS: BP 153/82
== END 2021-04-13 11:30 | disposition home or self-care (01) ==
LOC: SDC 10:36
PROVIDERS: ATTEND Physician Assistant
DX: R74.8 Abnormal levels of other serum enzymes (principal)
CPT/HCPCS: 36415; 36591; 84075; 84080

== ENCOUNTER 2021-05-19 03:00 | Outpatient (RCR) | payer MEDICARE, MEDICAID ==
[2021-05-18 15:58] LABS: HEMATOCRIT 34 % (35-52); HEMOGLOBIN 9.8 g/dL (11.5-16.0); MEAN CORPUSCULAR HEMOGLOBIN 25 pg (25-34); MEAN CORPUSCULAR HGB CONC 29 g/dL (32-36); MEAN CORPUSCULAR VOLUME 87 fL (80-99); MEAN PLATELET VOLUME 9.7 fL (9.0-12.2); PLATELET COUNT 276 10^3/uL (130-400); WHITE BLOOD COUNT 4.8 10^3/uL (4.3-11.0)
[2021-05-18 16:10] LABS: ALBUMIN 3.9 GM/DL (3.2-4.5)
[2021-05-18 16:11] LABS: POTASSIUM 3.6 MMOL/L (3.6-5.0)
[2021-05-18 16:12] LABS: CALCIUM 8.9 MG/DL (8.5-10.1)
[2021-05-18 16:13] LABS: TOTAL PROTEIN 6.7 GM/DL (6.4-8.2)
[2021-05-18 16:15] LABS: BILIRUBIN,TOTAL 0.1 MG/DL (0.1-1.0)
[2021-05-18 16:17] LABS: CREATININE SERUM 0.76 MG/DL (0.60-1.30)
[2021-05-18 16:40] LABS: FREE T4 (FREE THYROXINE) 0.87 NG/DL (0.70-1.48)
[~2021-05-19 03:00] MED LIST changes: +DICY20TA PO; +MONT-40 PO; -MONT10TA32 PO
[2021-05-19] MEDS ORDERED: DICL75TA2 PO (10:29)
[2021-05-19] MEDS ORDERED: ONDA-105 PO (10:29)
[2021-05-19] MEDS ORDERED: SOLI10TA7 PO (10:29)
[2021-05-19] MEDS ORDERED: LAMO200T5 PO (10:29)
[2021-05-19] MEDS ORDERED: SPIR50TA4 PO (10:29)
[2021-05-19] MEDS ORDERED: FURO40TA4 PO (10:29)
[2021-05-19] MEDS ORDERED: VERA120T74 PO (10:29)
[2021-05-19] MEDS ORDERED: BUSP10TA95 PO (10:29)
[2021-05-19] MEDS ORDERED: ALBU90AE2 IH (10:29)
[2021-05-19] MEDS ORDERED: AMIT50TA3 PO (10:29)
[2021-05-21] MEDS ORDERED: HYDR-3817 PO (08:45)
== END 2021-08-16 | disposition home or self-care (01) ==
LOC: LAB 03:00
PROVIDERS: ATTEND Internal Medicine
DX: K52.9 Noninfective gastroenteritis and colitis, unspecified (principal); K90.9 Intestinal malabsorption, unspecified; R63.5 Abnormal weight gain
CPT/HCPCS: 36415; 80053; 82533; 82607; 82705; 82728; 82746; 82784; 82977; 83516; 83520; 83540; 83550; 83993; 84439; 84443; 85027

== ENCOUNTER 2021-05-19 09:18 | Outpatient (CLI) | payer MEDICARE, MEDICAID ==
[~2021-05-19] VITALS: Ht 175.3 cm; Wt 116.1 kg
[~2021-05-19 09:18] MED LIST changes: -DICY20TA PO; -MONT-40 PO; +MONT10TA32 PO
[2021-05-19] MEDS ORDERED: VERA120T10 PO (10:29)
[2021-05-19] MEDS ORDERED: ALBU90AE2 IH (10:29)
[2021-05-19] MEDS ORDERED: SPIR50TA4 PO (10:29)
[2021-05-19] MEDS ORDERED: FURO40TA4 PO (10:29)
[2021-05-19] MEDS ORDERED: ONDA-105 PO (10:29)
[2021-05-19] MEDS ORDERED: DICL75TA2 PO (10:29)
[2021-05-19] MEDS ORDERED: SOLI10TA7 PO (10:29)
[2021-05-19] MEDS ORDERED: AMIT50TA3 PO (10:29)
[2021-05-19] MEDS ORDERED: LAMO200T5 PO (10:29)
[2021-05-19] MEDS ORDERED: BUSP10TA95 PO (10:29)
== END 2021-05-19 11:20 | disposition home or self-care (01) ==
LOC: PREOP 09:18
PROVIDERS: ATTEND Surgery
DX: Z01.818 Encounter for other preprocedural examination (principal)

== ENCOUNTER 2021-05-21 08:39 | Day surgery (SDC) | payer MEDICARE, MEDICAID ==
[2021-05-21] VITALS (8 sets, daily range): BP systolic 95–145; BP diastolic 55–82
[~2021-05-21] VITALS: Ht 175.3 cm; Wt 116.0 kg
[~2021-05-21 08:39] MED LIST changes: +ALBU90AE2 IH; +BUSP10TA95 PO; +DICL75TA2 PO; +FURO40TA4 PO; +LAMO200T5 PO; +ONDA-105 PO; +SOLI10TA7 PO; +SPIR50TA4 PO; +VERA120T27 PO
[2021-05-21] MEDS ORDERED: HYDROcodone/APAP 5 MG/325 MG (LORTAB) TAB PO ONE (08:45)
[2021-05-21] MEDS ORDERED: ONDANSETRON 4 MG/2 ML (SDV) Z0FRAN IVP PRN ×2 (08:45→11:15)
[2021-05-21] MEDS ORDERED: LACTATED RINGERS 1,000 ML IV PRN (08:45)
[2021-05-21] MEDS ORDERED: fentaNYL INJ 100 MCG/2 ML AMP IVP PRN (08:45)
[2021-05-21] MEDS ORDERED: ACETAMINOPHEN 325 MG TABLET PO PRN (08:45)
[2021-05-21] MEDS ORDERED: HYDR-3817 PO (08:45)
[2021-05-21] MEDS ORDERED: ceFAZolin 2 GM IV Premixed 50 ML IV ONE (08:45)
--- NOTE | 2021-05-21 08:46 | Discharge Inst-Surgical ---
D/C Lap Instructions-KIDO Reconcile Patient Problems Problems Reviewed?: Yes New, Converted, or Re-Newed RX: RX on Chart Follow Up Appt as needed Activity as tolerated No driving for 24 hours No driving while on pain medications Incentive Spirometry use every 2 hours while awake Regular Diet Symptoms to Report: Fever over 101 degree F, Nausea/Vomiting Infection Signs and Symptoms to report: Increased redness, Foul odor of wound, Increased drainage Bathing instructions: May shower Operative Area Clean/Dry; Keep incision clean/dry If any problems/questions: Contact your physician or go to Emergency Room KRYSTEN BENTLEY APRN May 21, 2021 08:46
--- NOTE | 2021-05-21 08:47 | Progress Note-Pre Operative ---
Pre-Operative Progress Note H&P Reviewed The H&P was reviewed, patient examined and no changes noted. Date Seen by Provider: May 21, 2021 Time Seen by Provider: 08:45 Date H&P Reviewed: May 21, 2021 Time H&P Reviewed: 08:40 Pre-Operative Diagnosis: Malfunctioning port, poor venous access KRYSTEN BENTLEY APRN May 21, 2021 08:47
[2021-05-21] MEDS ORDERED: 0.9% SODIUM CHLORIDE PF INJ 20 ML VIAL ONE (09:07)
[2021-05-21] MEDS ORDERED: LIDOCAINE/EPI 1%-1:200,000 (XYLOCAINE) 30 ML VIAL ONE (09:08)
[2021-05-21] MEDS ORDERED: HEParin (CENTRAL IV FLUSH) 500 UNIT/5 ML SYR ONE (09:08)
--- NOTE | 2021-05-21 10:59 | Progress Note-Post Operative ---
Post-Operative Progess Note Surgeon (s)/Head Of Digital Advertising & Integration (s) Surgeon MARGO FRANCISCO MD Head Of Digital Advertising & Integration: luis rehman BARIATRIC NURSE Pre-Operative Diagnosis non-functional groshong Post-Operative Diagnosis same Procedure & Operative Findings Date of Procedure 05/21/21 Procedure Performed/Findings removal and replacement groshong implantable catheter under flouroscopy. Anesthesia Type mac with local Estimated Blood Loss Estimated blood loss (mL): minimal Specimens/Packing Specimens Removed none MARGO FRANCISCO MD May 21, 2021 10:59
--- NOTE | 2021-05-21 11:14 | Anesthesia-General Post-Op ---
General Patient Condition Mental Status/LOC: Same as Preop Cardiovascular: Satisfactory Nausea/Vomiting: Absent Respiratory: Satisfactory Pain: Controlled Complications: Absent Post Op Complications Complications None Follow Up Care/Instructions Patient Instructions None needed. Anesthesia/Patient Condition Patient Condition Patient is doing well, no complaints, stable vital signs, no apparent adverse anesthesia problems. No complications reported per nursing. JUDITH GEE CRNA May 21, 2021 11:14
[2021-05-21] MEDS ORDERED: morphine INJ 10 MG/ML 1ML (SYR OR VIAL) IVP ONE (11:15)
--- NOTE | 2021-05-21 11:49 | Diagnostic Imaging Report ---
INDICATION: Port-A-Cath placement COMPARISON: 08/31/2013 FINDINGS: Single view the chest demonstrates a right sided Port-A-Cath the tip in the SVC. There is no pneumothorax. There is atelectasis in the left base. IMPRESSION: 1. Right sided Port-A-Cath. 2. Atelectasis left base. Dictated by: Dictated on workstation # [id number]
--- NOTE | 2021-05-21 12:06 | Diagnostic Imaging Report ---
INDICATION: Fluoroscopy during Groshong catheter placement. Fluoroscopy was provided in the OR during Groshong catheter placement. 104 seconds of fluoroscopic time was utilized. A single image was obtained demonstrating a right subclavian Groshong with tip overlying the SVC. IMPRESSION: Fluoroscopy during Groshong catheter placement. Dictated by: Dictated on workstation # [id number]
--- NOTE | 2021-05-21 14:05 | OPERATIVE REPORT ---
DATE OF SERVICE: 05/21/2021 ATTENDING PRIMARY CARE PHYSICIAN: EDGAR Damon PREOPERATIVE DIAGNOSIS: Nonfunctioning Groshong implantable catheter. POSTOPERATIVE DIAGNOSIS: Nonfunctioning Groshong implantable catheter. PROCEDURE: Removal and replacement of right internal jugular Groshong and replacement with a right subclavian Groshong implantable catheter under fluoroscopy. SURGEON: Margo Francisco MD MIRROR DEPARTMENT SUPERVISOR: Figueroa Bangura APRN. ANESTHESIA: Monitored anesthesia care with local. ESTIMATED BLOOD LOSS: Minimal. FINDINGS: Catheter tip at superior vena caval -- right atrial junction. DISPOSITION: The patient tolerated the procedure well. INDICATIONS: The patient is a 45-year-old female known to us. She has a history of multiple medical problems including physical as well as mental developmental delay. She has a very poor peripheral venous circulation and has had multiple Groshong implantable catheters and she currently has a right internal jugular one in place; however, this has become nonfunctional. DESCRIPTION OF PROCEDURE: The patient was brought to the operating room, laid supine on the table. After adequate IV pain and sedative medications and monitored anesthesia care, the chest and neck were prepped and draped in standard surgical fashion. A 1% lidocaine with epinephrine was used to anesthetize overlying skin to the previous port and the skin incision made along the previous incision line. Subcutaneous tissue was then dissected using electrocautery and the capsule was identified and opened using electrocautery. The port was then removed as well as the Groshong catheter completely intact while holding pressure with visualization of good hemostasis. We then proceeded with placement of right subclavian Groshong implantable catheter. Through the open incision, the right subclavian vein was cannulated withdrawing the venous blood. The guidewire was then inserted under fluoroscopy. The dilator and sheath were then placed over the guidewire and the guidewire and dilator were removed and the Groshong catheter placed through the sheath until the catheter tip was at the superior vena caval -- right atrial junction. The sheath was then removed. The inner wire within the catheter was then removed. The catheter cut down to size and port placed onto the catheter. Using the previous chest reservoir, the port was placed and sutured to the anterior pectoralis fascia using interrupted 3-0 Vicryl sutures. The subcutaneous tissue was then reapproximated using 3-0 Vicryl interrupted sutures and the skin was closed using 4-0 Monocryl running subcuticular suture. Wound was then cleaned and covered with Dermabond. The patient tolerated the procedure well. We will get a post-procedure chest x-ray and once confirmation of placement of the port may be accessed and used at any time. Job ID: [id number] DocumentID: [id number] Dictated Date: 05/21/2021 11:10:46 Cord Splicer Date: 05/21/2021 14:04:19 Dictated By: MARGO FRANCISCO MD
== END 2021-05-21 12:45 | disposition home or self-care (01) ==
LOC: SDC 08:39
PROVIDERS: ATTEND Surgery
DX: T82.598A Other mechanical complication of other cardiac and vascular devices and implants, initial encounter (principal); J45.909 Unspecified asthma, uncomplicated; I10 Essential (primary) hypertension; F41.9 Anxiety disorder, unspecified; K21.9 Gastro-esophageal reflux disease without esophagitis; F90.9 Attention-deficit hyperactivity disorder, unspecified type; E78.00 Pure hypercholesterolemia, unspecified; Z68.37 Body mass index [BMI] 37.0-37.9, adult; Z79.899 Other long term (current) drug therapy; Z79.82 Long term (current) use of aspirin; Z98.890 Other specified postprocedural states; Z79.891 Long term (current) use of opiate analgesic; Z79.51 Long term (current) use of inhaled steroids; Z79.1 Long term (current) use of non-steroidal anti-inflammatories (NSAID)
CPT/HCPCS: 36430; 36561; 36590; 71045; 76000; 87081; C1788

== ENCOUNTER 2021-06-16 11:39 | Outpatient (RCR) | payer MEDICARE, MEDICAID ==
[2021-06-11 13:15] VITALS: BP 117/71
[~2021-06-16] VITALS: Ht 149.9 cm; Wt 118.0 kg
[~2021-06-16 11:39] MED LIST changes: +DICY20TA PO; +HEParin (CENTRAL IV FLUSH) 500 UNIT/5 ML SYR IV ONE; +HEParin (CENTRAL IV FLUSH) 500 UNIT/5 ML SYR ONE; +HYDR-3817 PO; +MONT-40 PO; -MONT10TA32 PO; -VERA120T27 PO; +VERA120T74 PO
[2021-06-16 11:58] LABS: CALCIUM 8.7 MG/DL (8.5-10.1); CREATININE SERUM 0.79 MG/DL (0.60-1.30); POTASSIUM 3.7 MMOL/L (3.6-5.0)
== END 2021-09-09 | disposition home or self-care (01) ==
LOC: LAB 11:39
PROVIDERS: ATTEND Internal Medicine Cardiovascular Disease
DX: I10 Essential (primary) hypertension (principal)
CPT/HCPCS: 36415; 36591; 80048

== ENCOUNTER 2021-07-28 11:12 | Outpatient (RCR) | payer MEDICARE, MEDICAID ==
[2021-05-07 10:20] VITALS: BP 132/67
[~2021-07-28 11:12] MED LIST changes: -DICY20TA PO; -MONT-40 PO; +MONT10TA32 PO
[2021-07-28] MEDS ORDERED: HEParin (CENTRAL IV FLUSH) 500 UNIT/5 ML SYR ONE (11:17)
[2021-07-28 11:28] VITALS: BP 107/91
[2021-07-28] MEDS ORDERED: HEParin (CENTRAL IV FLUSH) 500 UNIT/5 ML SYR IV ONE (12:15)
== END 2021-08-05 | disposition home or self-care (01) ==
LOC: SDC 11:12
PROVIDERS: ATTEND Nurse Practitioner Community Health
DX: R56.9 Unspecified convulsions (principal)
CPT/HCPCS: 96523

== ENCOUNTER → 2021-08-13 | Outpatient (CLI) | payer MEDICARE, MEDICAID ==
[~2021-08-13] MED LIST changes: -HEParin (CENTRAL IV FLUSH) 500 UNIT/5 ML SYR IV ONE; -HEParin (CENTRAL IV FLUSH) 500 UNIT/5 ML SYR ONE
--- NOTE | 2021-08-13 16:01 | Diagnostic Imaging Report ---
INDICATION: DYSPHAGIA. TECHNIQUE: Two view chest 3:58 PM CORRELATION STUDY: 05/21/2021 FINDINGS: Right subclavian Zzxepj-b-Ckno catheter tip over the SVC. Surgical clips in the neck on the right. Heart size and mediastinum are stable. Vasculature within normal limits. The lungs are clear with no consolidating infiltrate. There is no significant pleural effusion or pneumothorax. Scoliotic curvature of the spine is present. IMPRESSION: 1. Negative for acute abnormality of the chest. Dictated by: Dictated on workstation # [id number]
== END ==
LOC: RAD 15:04
PROVIDERS: ATTEND Internal Medicine
DX: R13.10 Dysphagia, unspecified (principal); K50.90 Crohn's disease, unspecified, without complications
CPT/HCPCS: 71046

== ENCOUNTER 2021-08-28 10:40 | Outpatient (RCR) | payer MEDICARE, MEDICAID ==
[2021-08-27 21:40] LABS: HEPATITIS C ANTIBODY C Non-Reactive (Non-Reactive)
[~2021-08-28 10:40] MED LIST changes: +DICY20TA PO; +MONT-40 PO; -MONT10TA32 PO
== END 2021-09-25 | disposition home or self-care (01) ==
LOC: LAB 10:40
PROVIDERS: ATTEND Internal Medicine
DX: Z11.4 Encounter for screening for human immunodeficiency virus [HIV] (principal); K50.90 Crohn's disease, unspecified, without complications
CPT/HCPCS: 86703; 86704; 86708; 86709; 86803; 87340; G0499; 36415; 86480; 86706

== ENCOUNTER 2021-10-15 08:43 | Outpatient (RCR) | payer MEDICARE, MEDICAID ==
[2021-10-01 09:51] LABS: BASOPHILS % (AUTO) 0 % (0-10); EOSINOPHILS % (AUTO) 0 % (0-10); HEMATOCRIT 30 % (35-52); HEMOGLOBIN 8.9 g/dL (11.5-16.0); LYMPHOCYTES # (AUTO) 1.3 10^3/uL (1.0-4.0); LYMPHOCYTES % (AUTO) 22 % (12-44); MEAN CORPUSCULAR HEMOGLOBIN 24 pg (25-34); MEAN CORPUSCULAR HGB CONC 29 g/dL (32-36); MEAN CORPUSCULAR VOLUME 82 fL (80-99); MEAN PLATELET VOLUME 10.1 fL (9.0-12.2); MONOCYTES # (AUTO) 0.5 10^3/uL (0.0-1.0); MONOCYTES % (AUTO) 8 % (0-12); NEUTROPHILS # (AUTO) 4.1 10^3/uL (1.8-7.8); NEUTROPHILS % (AUTO) 69 % (42-75); PLATELET COUNT 264 10^3/uL (130-400); WHITE BLOOD COUNT 5.9 10^3/uL (4.3-11.0)
[2021-10-01 10:02] LABS: ALBUMIN 3.7 GM/DL (3.2-4.5); POTASSIUM 3.2 MMOL/L (3.6-5.0)
[2021-10-01 10:03] LABS: CALCIUM 8.5 MG/DL (8.5-10.1)
[2021-10-01 10:05] LABS: TOTAL PROTEIN 6.5 GM/DL (6.4-8.2)
[2021-10-01] MEDS: inFLIXimab FOR IV 600 MG in NORMAL SALINE 250 ML IV SCH ×2 (10:05→10:34)
[2021-10-01 10:06] LABS: BILIRUBIN,TOTAL 0.2 MG/DL (0.1-1.0)
[2021-10-01 10:08] LABS: CREATININE SERUM 0.8 MG/DL (0.60-1.30)
[2021-10-01 12:40] VITALS: BP 126/78
[~2021-10-15] VITALS: Ht 149.9 cm; Wt 118.1 kg
[~2021-10-15 08:43] MED LIST changes: +ACETAMINOPHEN 500 MG TAB (TYLENOL) PO ONE; +ACETAMINOPHEN 500 MG TAB (TYLENOL) PO PRN; +CATHETER FLUSH 10 ML SYR IV PRN; +EPINEPHrine INJECTION 1 MG/ML AMP IM PRN; +diphenhydrAMINE 50 MG/ML INJ (BENADRYL) IVP ONE; +diphenhydrAMINE 50 MG/ML INJ (BENADRYL) IVP PRN; +methylPREDNISolone 125 MG (Solu-MEDROL) VIAL IVP PRN
[2021-10-15 08:45] VITALS: BP 119/98
[2021-10-15] MEDS ORDERED: ACETAMINOPHEN 500 MG TAB (TYLENOL) PO ONE (09:00)
[2021-10-15] MEDS ORDERED: diphenhydrAMINE 50 MG/ML INJ (BENADRYL) IVP ONE (09:00)
[2021-10-15] MEDS: inFLIXimab FOR IV 600 MG in NORMAL SALINE 250 ML IV SCH (10:04)
[2021-10-15 10:06] LABS: BASOPHILS % (AUTO) 1 % (0-10); EOSINOPHILS # (AUTO) 0.1 10^3/uL (0.0-0.3); EOSINOPHILS % (AUTO) 1 % (0-10); HEMATOCRIT 29 % (35-52); HEMOGLOBIN 8.4 g/dL (11.5-16.0); LYMPHOCYTES # (AUTO) 1.5 10^3/uL (1.0-4.0); LYMPHOCYTES % (AUTO) 26 % (12-44); MEAN CORPUSCULAR HEMOGLOBIN 24 pg (25-34); MEAN CORPUSCULAR HGB CONC 29 g/dL (32-36); MEAN CORPUSCULAR VOLUME 83 fL (80-99); MEAN PLATELET VOLUME 10.5 fL (9.0-12.2); MONOCYTES # (AUTO) 0.7 10^3/uL (0.0-1.0); MONOCYTES % (AUTO) 12 % (0-12); NEUTROPHILS # (AUTO) 3.4 10^3/uL (1.8-7.8); NEUTROPHILS % (AUTO) 59 % (42-75); PLATELET COUNT 292 10^3/uL (130-400); WHITE BLOOD COUNT 5.7 10^3/uL (4.3-11.0)
[2021-10-15 10:29] LABS: POTASSIUM 3.8 MMOL/L (3.6-5.0)
[2021-10-15 10:30] LABS: CALCIUM 8.8 MG/DL (8.5-10.1)
[2021-10-15 10:31] LABS: TOTAL PROTEIN 6.8 GM/DL (6.4-8.2)
[2021-10-15 10:33] LABS: BILIRUBIN,TOTAL 0.2 MG/DL (0.1-1.0)
[2021-10-15 10:35] LABS: CREATININE SERUM 0.87 MG/DL (0.60-1.30)
== END 2021-10-26 | disposition home or self-care (01) ==
LOC: SDC 08:43
PROVIDERS: ATTEND Internal Medicine
DX: K50.90 Crohn's disease, unspecified, without complications (principal)
CPT/HCPCS: 36415; 80053; 85025; 86141; 96365; 96366

== ENCOUNTER 2021-11-02 14:12 | Emergency (ER) | payer MEDICARE, MEDICAID ==
[~2021-11-02] VITALS: Ht 149.8 cm; Wt 113.6 kg
[~2021-11-02 14:12] MED LIST changes: -ACETAMINOPHEN 500 MG TAB (TYLENOL) PO ONE; -ACETAMINOPHEN 500 MG TAB (TYLENOL) PO PRN; -CATHETER FLUSH 10 ML SYR IV PRN; -EPINEPHrine INJECTION 1 MG/ML AMP IM PRN; -diphenhydrAMINE 50 MG/ML INJ (BENADRYL) IVP ONE; -diphenhydrAMINE 50 MG/ML INJ (BENADRYL) IVP PRN; -methylPREDNISolone 125 MG (Solu-MEDROL) VIAL IVP PRN
[2021-11-02] MEDS ORDERED: LORazepam INJ 2 MG/ML (ATIVAN) VIAL IVP STA (14:50)
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
[2021-11-02] MEDS ORDERED: LORazepam INJ 2 MG/ML (ATIVAN) VIAL IM STA (15:11)
[2021-11-02 16:29] VITALS: BP 149/59
== END 2021-11-02 16:28 | disposition home or self-care (01) ==
LOC: EDUNIT# 14:12 → ER 14:15
DX: F41.0 Panic disorder [episodic paroxysmal anxiety] (principal); I10 Essential (primary) hypertension; J45.909 Unspecified asthma, uncomplicated; K21.9 Gastro-esophageal reflux disease without esophagitis; F90.9 Attention-deficit hyperactivity disorder, unspecified type; K58.9 Irritable bowel syndrome, unspecified; G43.909 Migraine, unspecified, not intractable, without status migrainosus; G40.909 Epilepsy, unspecified, not intractable, without status epilepticus; G89.29 Other chronic pain; M54.9 Dorsalgia, unspecified; F41.9 Anxiety disorder, unspecified; E66.9 Obesity, unspecified; Z79.82 Long term (current) use of aspirin; Z91.040 Latex allergy status; Z68.43 Body mass index [BMI] 50.0-59.9, adult; Z79.891 Long term (current) use of opiate analgesic; Z79.899 Other long term (current) drug therapy
CPT/HCPCS: 99284

== ENCOUNTER 2021-12-01 14:18 | Emergency (ER) | payer MEDICARE, MEDICAID ==
[2021-12-01] VITALS (8 sets, daily range): BP systolic 100–122; BP diastolic 44–85
[~2021-12-01] VITALS: Ht 149.9 cm; Wt 113.6 kg
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
[2021-12-01 14:50] LABS: BASOPHILS % (AUTO) 0 % (0-10); EOSINOPHILS % (AUTO) 0 % (0-10); LYMPHOCYTES # (AUTO) 2.7 10^3/uL (1.0-4.0); LYMPHOCYTES % (AUTO) 27 % (12-44); MEAN CORPUSCULAR HEMOGLOBIN 22 pg (25-34); MEAN CORPUSCULAR HGB CONC 28 g/dL (32-36); MEAN CORPUSCULAR VOLUME 79 fL (80-99); MEAN PLATELET VOLUME 9.7 fL (9.0-12.2); MONOCYTES # (AUTO) 1.2 10^3/uL (0.0-1.0); MONOCYTES % (AUTO) 12 % (0-12); NEUTROPHILS # (AUTO) 5.9 10^3/uL (1.8-7.8); NEUTROPHILS % (AUTO) 59 % (42-75); PLATELET COUNT 466 10^3/uL (130-400)
[2021-12-01 14:54] LABS: HEMATOCRIT 20 % (35-52); HEMOGLOBIN 5.6 g/dL (11.5-16.0)
[2021-12-01 15:02] LABS: ALBUMIN 2.9 GM/DL (3.2-4.5); POTASSIUM 4.3 MMOL/L (3.6-5.0)
[2021-12-01 15:03] LABS: CALCIUM 8.3 MG/DL (8.5-10.1)
[2021-12-01 15:04] LABS: TOTAL PROTEIN 5.8 GM/DL (6.4-8.2)
[2021-12-01 15:06] LABS: BILIRUBIN,TOTAL 0.3 MG/DL (0.1-1.0); FIBRIN DEGRADATION PRODUCTS 0.97 UG/ML (0.00-0.49); INR 1.1 (0.8-1.4); PROTHROMBIN TIME PATIENT 14.4 SEC (12.2-14.7)
[2021-12-01 15:08] LABS: CREATININE SERUM 0.75 MG/DL (0.60-1.30)
[2021-12-01] MEDS ORDERED: NS IV 500 ML 500 ML IV SCH (15:15)
== END 2021-12-01 22:10 | disposition home or self-care (01) ==
LOC: 4TH 14:18 → EDUNIT# 14:18 → ER 14:18
DX: D64.9 Anemia, unspecified (principal); Z91.040 Latex allergy status
CPT/HCPCS: 36430; 80053; 85025; 85379; 85610; 86141; 86850; 86900; 86901; 86920; P9016; 36415

== ENCOUNTER → 2021-12-01 | Outpatient (CLI) | payer MEDICARE, MEDICAID | LOC: SDC 15:22 | PROVIDERS: ATTEND Emergency Medicine | DX: K50.90 Crohn's disease, unspecified, without complications (principal) ==

== ENCOUNTER → 2021-12-09 | Outpatient (CLI) | payer MEDICARE, MEDICAID ==
[~2021-12-09] VITALS: Ht 149.9 cm; Wt 111.1 kg
[~2021-12-09] MED LIST changes: +CYAN250010 PO; +INUL1TAB3 PO; +MILK175C5 PO; +MULT-593 PO
== END | disposition home or self-care (01) ==
LOC: PREOP 10:52
PROVIDERS: ATTEND Surgery
DX: Z01.818 Encounter for other preprocedural examination (principal)

== ENCOUNTER 2021-12-11 08:38 | Day surgery (SDC) | payer MEDICARE, MEDICAID ==
[~2021-12-11] VITALS: Ht 149.9 cm; Wt 111.1 kg
[2021-12-11] MEDS ORDERED: LACTATED RINGERS 1,000 ML IV STA (08:39)
[2021-12-11] MEDS ORDERED: HURRICAINE EXT TUBE (BENZOCAINE) XX PRN (08:45)
[2021-12-11] MEDS ORDERED: LIDOCAINE JELLY 2% 6 ML SYRINGE MM PRN (08:45)
[2021-12-11] MEDS ORDERED: LACTATED RINGERS 1,000 ML IV ONE (08:47)
[2021-12-11] MEDS ORDERED: MIDAZOLAM 2 MG/2 ML (VERSED) VIAL ONE (09:07)
[2021-12-11] MEDS ORDERED: PROPOFOL INJECTION 50 ML IV ONE (09:07)
[2021-12-11 09:15] VITALS: BP 110/79
--- NOTE | 2021-12-11 09:20 | Progress Note-Pre Operative ---
Pre-Operative Progress Note H&P Reviewed The H&P was reviewed, patient examined and no changes noted. Date Seen by Provider: Dec 11, 2021 Time Seen by Provider: 09:00 Date H&P Reviewed: Dec 11, 2021 Time H&P Reviewed: 09:00 Pre-Operative Diagnosis: GERD, screening o MARGO FRANCISCO MD Dec 11, 2021 09:20
--- NOTE | 2021-12-11 09:22 | Discharge Inst-Surgical ---
D/C Lap Instructions-NOLAN Follow Up Activity as tolerated High Fiber Diet 25g or more per day Avoid Alcohol, Caffeine, Spicy [place] and Acid foods. Drink 64 fluid oz or more of fluids per day. Symptoms to Report: Fever over 101 degree F, Nausea/Vomiting If any problems/questions: Contact your physician or go to Emergency Room MARGO FRANCISCO MD Dec 11, 2021 09:21
[2021-12-11] MEDS ORDERED: ONDANSETRON 4 MG (ZOFRAN) ORAL DISSOLVE TAB PO PRN (09:30)
[2021-12-11] MEDS ORDERED: ONDANSETRON 4 MG/2 ML (SDV) Z0FRAN IVP PRN (09:30)
[2021-12-11 10:10] VITALS: BP 83/52
[2021-12-11 10:15] VITALS: BP 91/51
--- NOTE | 2021-12-11 10:19 | Progress Note-Post Operative ---
Post-Operative Progess Note Surgeon (s)/Economics Instructor (s) Surgeon MARGO FRANCISCO MD Economics Instructor: none Pre-Operative Diagnosis GERD, screening colo Post-Operative Diagnosis reflux esophagitis(grade B), small recurrent HH(2cm), mild-mod gastritis. mild chronic stage 2 ext and int hemorrhoids, diffuse chronic active crohns colon and rectum Procedure & Operative Findings Date of Procedure 12/11/21 Procedure Performed/Findings EGD with bx. colonoscopy with bx. Anesthesia Type mac Estimated Blood Loss Estimated blood loss (mL): minimal Specimens/Packing Specimens Removed ge jxn, antrum, rectum, splenic flexure MARGO FRANCISCO MD Dec 11, 2021 10:19
[2021-12-11 10:25] VITALS: BP 89/55
[2021-12-11 11:35] VITALS: BP 86/60
--- NOTE | 2021-12-11 13:43 | Anesthesia-General Post-Op ---
MAC Patient Condition Mental Status/LOC: Same as Preop Cardiovascular: Satisfactory Nausea/Vomiting: Absent Respiratory: Satisfactory Pain: Controlled Complications: Absent Post Op Complications Complications None Follow Up Care/Instructions Patient Instructions None needed. Anesthesiology Discharge Order Discharge Order Patient is doing well, no complaints, stable vital signs, no apparent adverse anesthesia problems. No complications reported per nursing. TRAVIS MORENO CRNA Dec 11, 2021 13:43
--- NOTE | 2021-12-11 15:21 | OPERATIVE REPORT ---
DATE OF SERVICE: 12/11/2021 ATTENDING PRIMARY CARE PHYSICIAN: EDGAR Damon. PREOPERATIVE DIAGNOSES: Gastroesophageal reflux disease and anemia with history of Crohn's disease. POSTOPERATIVE DIAGNOSES: Reflux esophagitis, [place] grade B, small recurrent hiatal hernia 2 cm in size with intact wrap, mild to moderate gastritis, chronic stage II external and internal hemorrhoids, chronic active Crohn's throughout the colon and rectum with no active bleeding. PROCEDURES PERFORMED: EGD with biopsy and colonoscopy with biopsy. SURGEON: Margo Adams MD. ANESTHESIA: Monitored anesthesia care. ESTIMATED BLOOD LOSS: Minimal. FINDINGS: Reflux esophagitis, [place] grade B, small recurrent hiatal hernia 2 cm in size with intact wrap, mild to moderate gastritis, chronic stage II external and internal hemorrhoids, chronic active Crohn's throughout the colon and rectum with no active bleeding. DISPOSITION: The patient tolerated the procedure well. INDICATIONS FOR PROCEDURE: The patient is a 46-year-old female with a longstanding history of gastroesophageal reflux disease and is status post hiatal hernia repair as well as a laparoscopic [place] gastropexy in 2002. She also has a longstanding history of anemia requiring blood transfusions. She has a known history of Crohn's disease and is currently not on any treatment modality. She does not recall any red blood per rectum nor any dark tarry stools. DESCRIPTION OF PROCEDURE: The patient was brought to the endoscopy suite and laid in the left lateral decubitus position. After adequate IV pain and sedative medications and monitored anesthesia care, the mouthpiece was applied. The endoscope was placed in the mouth, visualizing the pharynx and hypopharyngeal region. Vocal cords, epiglottis, and vallecula were identified and appeared to be normal. The endoscope was then gently intubated, the esophageal opening and esophagus insufflated. The endoscope was then advanced to the first, second and third portion of the esophagus. At the level of the GE junction, a reflux esophagitis, [place] grade B was identified. A biopsy was taken with forceps with visualization of good hemostasis. The endoscope was then advanced into the stomach and endoscope retroflexed visualizing an intact wrap; however, there was a small recurrent hiatal hernia approximately 2 cm in size. There was a mild to moderate gastritis. No formal ulcerations, polyps or any neoplasms identified. A biopsy was taken of the antrum to rule out H. pylori with visualization of good hemostasis. The endoscope was then advanced to the pylorus and the first and second portion of the duodenum, which appeared normal with no inflammatory changes. The endoscope was then slowly withdrawn while taking a second look and suctioning of residual air with no additional findings. A digital rectal examination was performed, which revealed chronic stage II external and internal hemorrhoids, not actively edematous nor inflamed and no bleeding. Normal sphincter tone was felt and there were no palpable masses. The endoscope was then intubated and anus and rectum gently insufflated. The endoscope was then advanced through the valves of [place] of the rectum with small inflammatory plaques scattered diffusely throughout the rectum. Biopsies were taken with forceps with visualization of good hemostasis. These plaque and inflammatory changes were diffuse throughout the entirety of the colon and rectum consistent with a chronic active Crohn's disease. Multiple biopsies were taken of the second series at the splenic flexure. The endoscope was slowly withdrawn while taking a second look and suctioning of residual air with no additional findings. The patient tolerated the procedure well. We will have her continue with medical management for her reflux with small and more frequent meals, avoidance of eating at night as well as head elevation while lying supine. She also needs to proceed with any form of dietary and exercise regimen for weight loss and maintenance. We will recommend she continue with the Protonix daily as well. She also needs to likely be referred back to gastroenterology for targeted treatment and therapy for her chronic active Crohn's disease of her colon, which is likely causing her anemia. Job ID: [id number] DocumentID: [id number] Dictated Date: 12/11/2021 10:14:33 Cloth Bin Packer Date: 12/11/2021 15:20:55 Dictated By: MARGO ADAMS MD
== END 2021-12-11 12:05 | disposition home or self-care (01) ==
LOC: ENDO 08:38
PROVIDERS: ATTEND Surgery
DX: K21.00 Gastro-esophageal reflux disease with esophagitis, without bleeding (principal); K44.9 Diaphragmatic hernia without obstruction or gangrene; K29.70 Gastritis, unspecified, without bleeding; K64.1 Second degree hemorrhoids; D64.9 Anemia, unspecified; K64.4 Residual hemorrhoidal skin tags; K50.10 Crohn's disease of large intestine without complications

== ENCOUNTER 2021-12-17 10:15 | Emergency (ER) | payer MEDICARE, MEDICAID ==
[~2021-12-17] VITALS: Ht 149 cm; Wt 110.0 kg
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
[2021-12-17] MEDS: NS IV 1000 ML 1,000 ML IV SCH (11:20)
[2021-12-17 11:22] LABS: BASOPHILS # (AUTO) 0.1 10^3/uL (0.0-0.1); BASOPHILS % (AUTO) 0 % (0-10); EOSINOPHILS % (AUTO) 0 % (0-10); HEMATOCRIT 27 % (35-52); HEMOGLOBIN 8.1 g/dL (11.5-16.0); LYMPHOCYTES # (AUTO) 2.5 10^3/uL (1.0-4.0); LYMPHOCYTES % (AUTO) 20 % (12-44); MEAN CORPUSCULAR HEMOGLOBIN 24 pg (25-34); MEAN CORPUSCULAR HGB CONC 30 g/dL (32-36); MEAN CORPUSCULAR VOLUME 79 fL (80-99); MEAN PLATELET VOLUME 9.7 fL (9.0-12.2); MONOCYTES # (AUTO) 1.7 10^3/uL (0.0-1.0); MONOCYTES % (AUTO) 13 % (0-12); NEUTROPHILS # (AUTO) 8.1 10^3/uL (1.8-7.8); NEUTROPHILS % (AUTO) 64 % (42-75); PLATELET COUNT 480 10^3/uL (130-400); WHITE BLOOD COUNT 12.6 10^3/uL (4.3-11.0)
[2021-12-17 11:27] LABS: ALBUMIN 2.9 GM/DL (3.2-4.5); POTASSIUM 4.3 MMOL/L (3.6-5.0)
[2021-12-17] MEDS: NS IV 1000 ML 1,000 ML ONE (11:27)
[2021-12-17 11:28] LABS: CALCIUM 8.4 MG/DL (8.5-10.1); INR 1.2 (0.8-1.4); PROTHROMBIN TIME PATIENT 15.3 SEC (12.2-14.7)
[2021-12-17 11:29] LABS: TOTAL PROTEIN 5.9 GM/DL (6.4-8.2)
[2021-12-17 11:31] LABS: BILIRUBIN,TOTAL 0.3 MG/DL (0.1-1.0)
[2021-12-17 11:33] LABS: CREATININE SERUM 1.25 MG/DL (0.60-1.30)
[2021-12-17] MEDS: fentaNYL INJ 100 MCG/2 ML AMP IVP ONE (13:13)
[2021-12-17] MEDS ORDERED: HOLD METFORMIN - RECEIVED CONTRAST 20 ML VIAL IV SCH (13:30)
[2021-12-17] MEDS: CATHETER FLUSH 10 ML SYR IV PRN (13:41)
[2021-12-17] MEDS: NS 100 ML (IVPB) BAG IV ONE (13:41)
[2021-12-17] MEDS: IOHEXOL 350 MG/ML 100 ML (OMNIPAQUE 350) VIAL IV ONE (13:41)
--- NOTE | 2021-12-17 13:53 | Diagnostic Imaging Report ---
PROCEDURE: CT abdomen and pelvis with contrast. TECHNIQUE: Multiple contiguous axial images were obtained through the abdomen and pelvis after administration of intravenous contrast. Auto Exposure Controls were utilized during the CT exam to meet ALARA standards for radiation dose reduction. All CT scans use one or more of the following dose optimizing techniques: automated exposure control, MA and/or KvP adjustment based on patient size and exam type or iterative reconstruction. INDICATION: Abdominal pain and bloody stools with anemia. COMPARISON: Exam compared with CT abdomen and pelvis of 04/01/2020. FINDINGS: There is some residual contrast media within the colon as well as some dense stool. This could obscure intraluminal vascular contrast extravasation. No findings to suggest localized source of suspected GI bleed at this exam however are revealed. There is no evidence for segmental or generalized colitis. We acknowledge limited distention of portions of the left colon. No pericolonic or perienteric edema. There is no evidence for intra or retroperitoneal hemorrhage. No viscus perforation. No obstruction. No free air. No pneumatosis. No focal inflammatory process. Urinary tracts are unobstructed. The urinary bladder is unremarkable. The kidneys are normal. The gallbladder is surgically absent. There is hepatic steatosis. There are postsurgical changes to the stomach. There is some hyperdense presumed contrast within the stomach. Liver density is consistent with a fatty infiltration. There is a cyst in the left hepatic lobe. No abnormal distention of bile ducts. Spleen, adrenals, and pancreas are negative. No pneumatosis. No vascular obstruction, aneurysm, or rupture. IMPRESSION: No appreciable intraluminal, intraperitoneal, or extraperitoneal hemorrhage. No contrast extravasation revealed. No focal small or large bowel inflammatory process, obstructive features, or perforation. Fatty liver with previous cholecystectomy. No biliary pathology evident. Dictated by: Dictated on workstation # [id number]
[2021-12-17] MEDS: HYOSCYAMINE 0.125 MG (LEVSIN) TAB SL ONE (14:32)
[2021-12-17 14:46] VITALS: BP 111/79
[2021-12-17] MEDS ORDERED: CEFD300C3 PO (14:58)
[2021-12-17] MEDS ORDERED: METR-145 PO (14:58)
[2021-12-17] MEDS ORDERED: HYOS0.1283 SL (14:58)
[2021-12-17] MEDS ORDERED: METH4TAB10 PO (14:58)
[2021-12-17] MEDS ORDERED: ONDA4TAB11 SL (14:58)
== END 2021-12-17 15:25 | disposition home or self-care (01) ==
LOC: EDUNIT# 10:15 → ER 10:16
DX: K50.90 Crohn's disease, unspecified, without complications (principal); K92.1 Melena; E66.9 Obesity, unspecified; Z68.42 Body mass index [BMI] 45.0-49.9, adult; Z91.040 Latex allergy status; Z90.49 Acquired absence of other specified parts of digestive tract
CPT/HCPCS: 36415; 74177; 80053; 85025; 85610; 85730

== ENCOUNTER → 2022-01-05 | Outpatient (CLI) | payer MEDICARE, MEDICAID ==
[~2022-01-05] MED LIST changes: +ATOM100C2 PO; +BUDE3CAP10 PO; +CALC-901 PO; +FLT11013 INH; +HEParin (CENTRAL IV FLUSH) 500 UNIT/5 ML SYR IV ONE; +HEParin (CENTRAL IV FLUSH) 500 UNIT/5 ML SYR ONE; +HYOS0.1283 SL; +METH4TAB10 PO; +METR-145 PO; +ONDA4TAB11 SL
[2022-01-05 12:00] VITALS: BP 104/54
== END ==
LOC: SDC 11:35
PROVIDERS: ATTEND Physician Assistant
DX: Z45.2 Encounter for adjustment and management of vascular access device (principal)
CPT/HCPCS: 96523

== ENCOUNTER → 2022-01-05 | Outpatient (CLI) | payer MEDICARE, MEDICAID ==
[~2022-01-05] MED LIST changes: -HEParin (CENTRAL IV FLUSH) 500 UNIT/5 ML SYR IV ONE; -HEParin (CENTRAL IV FLUSH) 500 UNIT/5 ML SYR ONE; +RT-ALBUTEROL SULF 2.5 MG/3 ML PRE-MIX VIAL INH ONE
== END ==
LOC: RT 09:57
PROVIDERS: ATTEND Nurse Practitioner Family
DX: R06.02 Shortness of breath (principal)
CPT/HCPCS: 94060; 94729

== ENCOUNTER → 2022-01-18 | Outpatient (CLI) | payer MEDICARE, MEDICAID ==
[~2022-01-18] MED LIST changes: +BUDE3CAP5 PO; +ERTA1VIA4 IV; +NF-SODBICA PO; -RT-ALBUTEROL SULF 2.5 MG/3 ML PRE-MIX VIAL INH ONE
[2022-01-18 12:18] LABS: BASOPHILS % (AUTO) 0 % (0-10); EOSINOPHILS % (AUTO) 0 % (0-10); HEMATOCRIT 28 % (35-52); HEMOGLOBIN 8.3 g/dL (11.5-16.0); LYMPHOCYTES # (AUTO) 1.4 10^3/uL (1.0-4.0); LYMPHOCYTES % (AUTO) 14 % (12-44); MEAN CORPUSCULAR HEMOGLOBIN 26 pg (25-34); MEAN CORPUSCULAR HGB CONC 30 g/dL (32-36); MEAN CORPUSCULAR VOLUME 87 fL (80-99); MONOCYTES # (AUTO) 0.8 10^3/uL (0.0-1.0); MONOCYTES % (AUTO) 8 % (0-12); NEUTROPHILS # (AUTO) 7.3 10^3/uL (1.8-7.8); NEUTROPHILS % (AUTO) 76 % (42-75); PLATELET COUNT 230 10^3/uL (130-400); WHITE BLOOD COUNT 9.7 10^3/uL (4.3-11.0)
[2022-01-18 12:40] LABS: ALBUMIN 2.5 GM/DL (3.2-4.5); BILIRUBIN,TOTAL 0.3 MG/DL (0.1-1.0); CALCIUM 7.7 MG/DL (8.5-10.1); CREATININE SERUM 0.66 MG/DL (0.60-1.30); TOTAL PROTEIN 4.7 GM/DL (6.4-8.2)
[2022-01-18 12:57] LABS: POTASSIUM 2.4 MMOL/L (3.6-5.0)
== END ==
LOC: LABNPT 12:13
PROVIDERS: ATTEND Physician Assistant
DX: K50.811 Crohn's disease of both small and large intestine with rectal bleeding (principal); B96.20 Unspecified Escherichia coli [E. coli] as the cause of diseases classified elsewhere
CPT/HCPCS: 80053; 85025

== ENCOUNTER → 2022-01-25 | Outpatient (CLI) | payer MEDICARE, MEDICAID ==
[~2022-01-25] MED LIST changes: +OMEP20TA56 PO; -OMEP20TA7 PO
[2022-01-25 15:30] LABS: POTASSIUM 3.2 MMOL/L (3.6-5.0)
[2022-01-25 15:31] LABS: CALCIUM 8.2 MG/DL (8.5-10.1)
[2022-01-25 15:35] LABS: CREATININE SERUM 0.69 MG/DL (0.60-1.30)
[2022-01-25 15:38] LABS: MAGNESIUM 1.6 MG/DL (1.6-2.4)
== END ==
LOC: IHC 15:13
PROVIDERS: ATTEND Family Medicine
DX: N30.00 Acute cystitis without hematuria (principal)
CPT/HCPCS: 80048; 83735

== ENCOUNTER → 2022-02-15 | Outpatient (CLI) | payer MEDICARE, MEDICAID | LOC: CARD 13:12 | PROVIDERS: ATTEND Nurse Practitioner Family | DX: R00.0 Tachycardia, unspecified (principal) | CPT/HCPCS: 93225; 93226 ==

== ENCOUNTER → 2022-04-19 | Outpatient (CLI) | payer MEDICARE, MEDICAID ==
[2022-04-19 10:20] VITALS: BP 112/50
== END ==
LOC: SDC 10:03
PROVIDERS: ATTEND Physician Assistant
DX: Z45.2 Encounter for adjustment and management of vascular access device (principal)
CPT/HCPCS: 96523

== ENCOUNTER → 2022-06-08 | Outpatient (CLI) | payer MEDICARE, MEDICAID ==
[~2022-06-08] MED LIST changes: +HEParin (CENTRAL IV FLUSH) 500 UNIT/5 ML SYR IV ONE; +HEParin (CENTRAL IV FLUSH) 500 UNIT/5 ML SYR ONE
[2022-06-08 10:10] VITALS: BP 116/78
== END ==
LOC: SDC 09:48
PROVIDERS: ATTEND Physician Assistant
DX: Z45.2 Encounter for adjustment and management of vascular access device (principal)
CPT/HCPCS: 96523

== ENCOUNTER 2022-06-25 08:20 | Outpatient (CLI) | payer MEDICARE, MEDICAID ==
[~2022-06-25] VITALS: Ht 149.9 cm; Wt 111.5 kg
[~2022-06-25 08:20] MED LIST changes: -HEParin (CENTRAL IV FLUSH) 500 UNIT/5 ML SYR IV ONE; -HEParin (CENTRAL IV FLUSH) 500 UNIT/5 ML SYR ONE
== END 2022-06-25 09:27 | disposition home or self-care (01) ==
LOC: PREOP 08:20
PROVIDERS: ATTEND Surgery
DX: Z01.818 Encounter for other preprocedural examination (principal)

== ENCOUNTER 2022-06-30 11:38 | Day surgery (SDC) | payer MEDICARE, MEDICAID ==
[~2022-06-30] VITALS: Ht 149 cm; Wt 111.5 kg
[2022-06-30] MEDS ORDERED: LACTATED RINGERS 1,000 ML IV ONE (11:41)
[2022-06-30] MEDS ORDERED: LIDOCAINE JELLY 2% 6 ML SYRINGE MM PRN (11:45)
[2022-06-30] MEDS ORDERED: LACTATED RINGERS 1,000 ML IV STA (11:45)
[2022-06-30] MEDS ORDERED: HURRICAINE EXT TUBE (BENZOCAINE) XX PRN (11:45)
[2022-06-30 12:00] VITALS: BP 113/96
--- NOTE | 2022-06-30 12:01 | Progress Note-Pre Operative ---
Pre-Operative Progress Note Date of Available H&P: Jun 30, 2022 Date H&P Reviewed: Jun 30, 2022 Time H&P Reviewed: 11:30 History & Physical: No changes noted Pre-Operative Diagnosis: hx crohns, rectal bleed MARGO FRANCISCO MD Jun 30, 2022 12:01
--- NOTE | 2022-06-30 12:02 | Discharge Inst-Surgical ---
D/C Lap Instructions-NOLAN Follow Up Appt in 2 weeks Activity as tolerated High Fiber Diet 25g or more per day Avoid Alcohol, Caffeine, Spicy [place] and Acid foods. Drink 64 fluid oz or more of fluids per day. Symptoms to Report: Fever over 101 degree F, Nausea/Vomiting If any problems/questions: Contact your physician or go to Emergency Room MARGO FRANCISCO MD Jun 30, 2022 12:02
[2022-06-30] MEDS ORDERED: ONDANSETRON 4 MG/2 ML (SDV) Z0FRAN IVP PRN (12:15)
[2022-06-30] MEDS ORDERED: ONDANSETRON 4 MG (ZOFRAN) ORAL DISSOLVE TAB PO PRN (12:15)
[2022-06-30] MEDS ORDERED: MIDAZOLAM 2 MG/2 ML (VERSED) VIAL ONE (12:38)
[2022-06-30] MEDS ORDERED: PROPOFOL INJECTION 50 ML IV ONE ×2 (12:38→13:27)
--- NOTE | 2022-06-30 12:45 | Anesthesia-General Post-Op ---
MAC Patient Condition Mental Status/LOC: Same as Preop Cardiovascular: Satisfactory Nausea/Vomiting: Absent Respiratory: Satisfactory Pain: Controlled Complications: Absent Post Op Complications Complications None Follow Up Care/Instructions Patient Instructions None needed. Anesthesiology Discharge Order Discharge Order Patient is doing well, no complaints, stable vital signs, no apparent adverse anesthesia problems. No complications reported per nursing. MELCHOR AWAD CRNA Jun 30, 2022 12:45
[2022-06-30 14:05] VITALS: BP 115/75
[2022-06-30 14:10] VITALS: BP 109/67
[2022-06-30 14:15] VITALS: BP 103/74
--- NOTE | 2022-06-30 14:17 | Progress Note-Post Operative ---
Post-Operative Progess Note Surgeon (s)/Appeals Examiner (s) Surgeon MARGO FRANCISCO MD Appeals Examiner: none Pre-Operative Diagnosis hx crohns, rectal bleed Post-Operative Diagnosis reflux esophagitis(grade B), intact HH repair, mild-mod gastritis, no duodenitis. mild chronic stage 2 ext and int hemorrhoids, diffuse rectal and colonic mucosal inflammation/ulcerations/friability, transverse colon polyp(4mm). Procedure & Operative Findings Date of Procedure 06/30/22 Procedure Performed/Findings EGD with bx. Colonoscopy with multiple bx. Anesthesia Type mac Estimated Blood Loss Estimated blood loss (mL): minimal Specimens/Packing Specimens Removed duod, stomach, ge. cecum, asc, transverse, desc, sigmoid colon, rectum. MARGO FRANCISCO MD Jun 30, 2022 14:17
[2022-06-30 14:54] VITALS: BP 103/74
--- NOTE | 2022-07-01 01:35 | OPERATIVE REPORT ---
DATE OF SERVICE: 06/30/2022 ATTENDING AUTO WRECKER: [facility]. PREOPERATIVE DIAGNOSES: Gastroesophageal reflux disease, history of Crohn's disease and anemia. POSTOPERATIVE DIAGNOSES: Reflux esophagitis [place] grade B, intact previous antireflux procedure. No recurrent hiatal hernia. Mild to moderate gastritis. No duodenitis. Chronic stage II external and internal hemorrhoids. No perianal disease. Ulcerations and inflammation starting at the rectum and diffuse throughout the colon to the cecum. Transverse colonic polyp. PROCEDURES: EGD with biopsy, colonoscopy with biopsy. SURGEON: Margo Francisco MD. ANESTHESIA: Monitored anesthesia care. ESTIMATED BLOOD LOSS: Minimal. FINDINGS: Reflux esophagitis [place] grade B, intact previous antireflux procedure. No recurrent hiatal hernia. Mild to moderate gastritis. No duodenitis. Chronic stage II external and internal hemorrhoids. No perianal disease. Ulcerations and inflammation starting at the rectum and diffuse throughout the colon to the cecum. Transverse colonic polyp. DISPOSITION: The patient tolerated the procedure well. INDICATIONS: The patient is a 46-year-old female known to us. She has a longstanding history of gastroesophageal reflux disease and underwent a hiatal hernia repair as well as [place] gastropexy in 2002. She also has a known history of Crohn's disease and has been seeing a tube wrapper at [facility] and was initially started on Remicade; however, did not like the effects of the medication and discontinued it. She reports that she was then started on Stelara; however, reports this was not covered by her insurance. For the past several months, she has not been receiving any treatment for Crohn's disease and has found to be anemic. She also has been having loose stools as well as rectal bleeding. Her tube wrapper at [facility] recommended that the patient get an EGD and colonoscopy as well as multiple biopsies. DESCRIPTION OF PROCEDURE: The patient was brought to the endoscopy suite, laid in left lateral decubitus position. After adequate IV pain and sedative medications and monitored anesthesia care, the mouthpiece was applied. The endoscope was then placed in the mouth, visualizing the pharynx and hypopharyngeal region. Vocal cords, epiglottis and vallecula identified and appeared to be normal. The endoscope was then gently intubated at the esophageal opening and esophagus insufflated. The endoscope was then advanced to the first, second and third portions of esophagus at the level of the GE junction, a reflux esophagitis, [place] grade B identified. No ulcers or strictures identified in this region and a biopsy was taken with forceps with visualization of good hemostasis. The endoscope was then advanced into the stomach and the endoscope retroflexed visualizing an intact previous hiatal hernia repair as well as antireflux procedure with no recurrent hiatal hernia. There was a mild to moderate gastritis. No formal ulcerations, polyps, or any neoplasms and biopsies were taken of the stomach with forceps with visualization of good hemostasis. The endoscope was then advanced to the pylorus and the first and second portion of the duodenum with no duodenitis identified and biopsies were taken of the duodenum as well. The endoscope was then slowly withdrawn while taking a second look and suctioning of residual air with no additional findings. A digital rectal examination was performed, which revealed chronic stage II external and internal hemorrhoids. There was no fistulous tracts, abscesses, perianal inflammation to indicate any perianal disease. Normal suture tone was felt and there were no palpable masses. The endoscope was then intubated to the anus and rectum gently insufflated. At the level of the rectum, ulcerations as well as diffuse inflammation started and biopsies were taken of the rectum. The endoscope was then advanced through the remainder of the sigmoid, descending and transverse colon. At the level of the transverse colon, there was a flat polyp identified, which was biopsied. Biopsies were also taken of the descending and sigmoid colon. The endoscope was then advanced through the ascending colon to the cecum. Multiple attempts were made to try to intubate the terminal ileum; however, unsuccessful and there was considerable friability of the mucosa, so we did not try to proceed further. Biopsies were taken of the cecum as well as the ascending colon. Overall, there was diffuse inflammatory involvement of the colon and rectum. There were no skip lesions and there were some ulcerations identified. The endoscope was then slowly withdrawn while taking a second look and suctioning of residual air with no additional findings. The patient tolerated the procedure well. For her reflux esophagitis and gastritis, we will recommend the necessary lifestyle and dietary accommodation including small and more frequent meals, avoidance of eating at night as well as head elevation while lying supine. She also needs to continue her Protonix 40 mg daily and proceed with any type of regularly scheduled exercise and diet for weight loss, which should decrease her symptoms of reflux. She also did have significant mucosal inflammatory changes throughout the colon and rectum with ulcerations of the rectum. The entire mucosa was also easily friable. A transverse colonic polyp was also identified and biopsied. We aware that she does have a diagnosis of Crohn's disease; however, it appears that she does have rectal involvement as well and may have symptoms related to both Crohn's and ulcerative colitis; however, she may also potentially be more in line with a diagnosis of ulcerative colitis. Again, there was diffuse colonic as well as rectal inflammation with no skip lesions and rectal ulcerations. Refer her back to gastroenterology for further management. Job ID: [id number] DocumentID: [id number] Dictated Date: 06/30/2022 14:12:33 Sound Ranging Crewmember Date: 07/01/2022 01:35:04 Dictated By: MARGO FRANCISCO MD
== END 2022-06-30 15:46 | disposition home or self-care (01) ==
LOC: ENDO 11:38
PROVIDERS: ATTEND Surgery
DX: K52.9 Noninfective gastroenteritis and colitis, unspecified (principal); K21.00 Gastro-esophageal reflux disease with esophagitis, without bleeding; D64.9 Anemia, unspecified; K29.70 Gastritis, unspecified, without bleeding; K64.1 Second degree hemorrhoids; K64.8 Other hemorrhoids; E66.01 Morbid (severe) obesity due to excess calories; Z68.43 Body mass index [BMI] 50.0-59.9, adult; Z87.19 Personal history of other diseases of the digestive system

== ENCOUNTER → 2022-07-09 | Outpatient (CLI) | payer MEDICARE, MEDICAID ==
[2022-07-09 12:34] LABS: BASOPHILS % (AUTO) 0 % (0-10); EOSINOPHILS # (AUTO) 0.1 10^3/uL (0.0-0.3); EOSINOPHILS % (AUTO) 2 % (0-10); HEMATOCRIT 36 % (35-52); HEMOGLOBIN 10.7 g/dL (11.5-16.0); LYMPHOCYTES # (AUTO) 1.6 10^3/uL (1.0-4.0); LYMPHOCYTES % (AUTO) 28 % (12-44); MEAN CORPUSCULAR HEMOGLOBIN 25 pg (25-34); MEAN CORPUSCULAR HGB CONC 30 g/dL (32-36); MEAN CORPUSCULAR VOLUME 83 fL (80-99); MEAN PLATELET VOLUME 10.6 fL (9.0-12.2); MONOCYTES # (AUTO) 0.5 10^3/uL (0.0-1.0); MONOCYTES % (AUTO) 9 % (0-12); NEUTROPHILS # (AUTO) 3.5 10^3/uL (1.8-7.8); NEUTROPHILS % (AUTO) 61 % (42-75); PLATELET COUNT 251 10^3/uL (130-400); WHITE BLOOD COUNT 5.8 10^3/uL (4.3-11.0)
[2022-07-09 12:53] LABS: BILIRUBIN,TOTAL 0.3 MG/DL (0.1-1.0); CALCIUM 9.3 MG/DL (8.5-10.1); CREATININE SERUM 1.25 MG/DL (0.60-1.30); POTASSIUM 3.9 MMOL/L (3.6-5.0); TOTAL PROTEIN 7.1 GM/DL (6.4-8.2)
== END ==
LOC: LAB 11:52
PROVIDERS: ATTEND Internal Medicine
DX: K50.80 Crohn's disease of both small and large intestine without complications (principal)
CPT/HCPCS: 36415; 80053; 85025

== ENCOUNTER → 2022-08-02 | Outpatient (CLI) | payer MEDICARE, MEDICAID ==
[2022-08-02 10:25] VITALS: BP 109/59
== END ==
LOC: SDC 10:03
PROVIDERS: ATTEND Physician Assistant
DX: Z45.2 Encounter for adjustment and management of vascular access device (principal)
CPT/HCPCS: 96523

== ENCOUNTER 2022-08-23 12:08 | Emergency (ER) | payer MEDICARE, MEDICAID ==
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
--- NOTE | 2022-08-23 13:02 | Diagnostic Imaging Report ---
PROCEDURE: CT head, face, and cervical spine without contrast. TECHNIQUE: Multiple contiguous axial images were obtained through the head, neck, and facial bones without the use of intravenous contrast. Sagittal and coronal reformations through the cervical spine and facial bones were also performed. Auto Exposure Controls were utilized during the CT exam to meet ALARA standards for radiation dose reduction. INDICATION: Supraorbital bruising. COMPARISON: No priors. FINDINGS: HEAD: There is no intracranial hemorrhage, and there are no abnormal extra-axial fluid collections. There is volume loss and encephalomalacia in the bilateral posterior occipital lobes as well as posterior left parietal lobe presumed on a remote basis from either prior ischemia or trauma. No cerebral edema, and no acute appearing intracranial pathology. There is no hydrocephalus. The basilar cisterns are patent. There is no pneumocephalus. No calvarial fracture deformity. No hemo-sinus. There is right supraorbital and frontal scalp swelling with no appreciable fracture. FACIAL BONES: The nasal bones and bony nasal septum are intact. No mandibular fracture deformity. No bony dislocation to the temporomandibular joints. Central skull base is intact. The pterygoid is intact. Mastoid air cells and middle ear cavities are clear. There is right supraorbital and frontal soft tissue swelling and scalp injury, but no appreciable fracture. No postseptal or retrobulbar orbital hematoma. The bony orbital wall is intact. The nasal bones and nasal septum are intact. Anterior and posterior anderson of the frontal sinuses are intact. The zygomatic arch is intact. CERVICAL SPINE: Cervical vertebral statures are normal. The alignment is anatomic. No fracture. No paraspinal hemorrhage. Tracheal cartilage and hyoid showed no traumatic deformity. The airway appeared patent. IMPRESSION: CT HEAD: Soft tissue injury and old areas of encephalomalacia owing to remote insults; however, no intracranial hemorrhage or acute appearing intracerebral pathology. CT FACIAL BONES: Soft tissue injury but no facial fracture or hemo-sinus. CT CERVICAL SPINE: No cervical spinal fracture or traumatic malalignment. Dictated by: Dictated on workstation # [id number]
--- NOTE | 2022-08-23 13:07 | Diagnostic Imaging Report ---
CLINICAL INDICATION: Patient is status post fall on shoulder with history of torn rotator cuff. EXAM: X-ray of the right shoulder. COMPARISON: X-ray of the right shoulder dated 03/15/2016. FINDINGS: There is no acute fracture. There are small degenerative spurs involving the right acromioclavicular region. A partially visualized Port-A-Cath is seen overlying the right chest. IMPRESSION: There is no acute fracture or dislocation. Dictated by: Dictated on workstation # [id number]
[2022-08-23] MEDS ORDERED: ACETAMINOPHEN 500 MG TAB (TYLENOL) PO ONE (13:15)
[2022-08-23 13:26] VITALS: BP 123/82
== END 2022-08-23 13:28 | disposition home or self-care (01) ==
LOC: EDUNIT# 12:08 → ER 12:09
DX: S00.83XA Contusion of other part of head, initial encounter (principal); Z91.040 Latex allergy status; Z88.5 Allergy status to narcotic agent; W05.2XXA Fall from non-moving motorized mobility scooter, initial encounter; W22.8XXA Striking against or struck by other objects, initial encounter; Y92.009 Unspecified place in unspecified non-institutional (private) residence as the place of occurrence of the external cause
CPT/HCPCS: 70450; 70486; 72125; 73030

== ENCOUNTER → 2022-08-31 | Outpatient (CLI) | payer MEDICARE, MEDICAID ==
[2022-08-31 10:00] VITALS: BP 122/95
== END ==
LOC: SDC 09:46
PROVIDERS: ATTEND Physician Assistant
DX: Z45.2 Encounter for adjustment and management of vascular access device (principal)
CPT/HCPCS: 96523

== ENCOUNTER 2022-09-22 10:31 | Outpatient (CLI) | payer MEDICARE, MEDICAID ==
[~2022-09-22] VITALS: Ht 149.9 cm; Wt 111.5 kg
[2022-09-22] MEDS ORDERED: METO50TA15 PO (15:30)
== END 2022-09-22 16:07 | disposition home or self-care (01) ==
LOC: PREOP 10:31
PROVIDERS: ATTEND Orthopaedic Surgery
DX: Z01.818 Encounter for other preprocedural examination (principal)

== ENCOUNTER 2022-09-29 07:25 | Day surgery (SDC) | payer MEDICARE, MEDICAID ==
--- NOTE | 2022-09-22 07:17 | HISTORY AND PHYSICAL ---
DATE OF SERVICE: 09/29/2022 This will be for outpatient surgery on 09/29/2022 for right shoulder arthroscopy, possible rotator cuff repair. HISTORY OF PRESENT ILLNESS: The patient is a 46-year-old right hand dominant female with progressive worsening right shoulder pain. She reports she has been unresponsive to conservative measures including injections and physical therapy. She reports pain with overhead activities. She denies neck pain, denies paresthesias. Due to functional impairment, failure to improve with conservative measures, the patient elected to proceed with surgical intervention. REVIEW OF SYSTEMS: No chest pain. No shortness of breath. No dysuria. PAST MEDICAL HISTORY: Hypertension. PAST SURGICAL HISTORY: [place] tooth extraction, herniorrhaphy, appendectomy, cholecystectomy, bilateral feet. FAMILY HISTORY: Unknown. PRIMARY CARE PROVIDER: [facility]. MEDICATIONS: Codeine, Depakote, lithium, estradiol. SOCIAL HISTORY: The patient denies alcohol and tobacco use. PHYSICAL EXAMINATION: Right shoulder demonstrates positive Neer's and positive Cornejo sign. She has negative Spurling's maneuver. She has weakness with abduction and external rotation. Active forward elevation is 170 degrees with painful beyond 90, external rotation 60 degrees, internal rotation is to her buttock. IMPRESSION: Right shoulder rotator cuff tear. PLAN: Right shoulder arthroscopy with biceps tenotomy, possible rotator cuff repair. The risks, benefits, options, ramifications and recovery were discussed at length with the patient. She understands and wishes to proceed. Job ID: [id number] DocumentID: [id number] Dictated Date: 09/13/2022 09:32:29 Retail Assistant Store Manager Date: 09/13/2022 12:59:00 Dictated By: JAY GONSALES MD
[2022-09-29] VITALS (12 sets, daily range): BP systolic 85–136; BP diastolic 49–95
[~2022-09-29] VITALS: Ht 149.9 cm; Wt 111.5 kg
[~2022-09-29 07:25] MED LIST changes: +METO50TA15 PO
[2022-09-29] MEDS ORDERED: oxyCODONE/APAP 5/325MG (PERCOCET 5) TABLET PO PRN (07:30)
--- NOTE | 2022-09-29 07:41 | Progress Note-Pre Operative ---
Pre-Operative Progress Note Date of Available H&P: Sep 13, 2022 Date H&P Reviewed: Sep 29, 2022 Time H&P Reviewed: 07:41 Changes from last HP none Pre-Operative Diagnosis: right shoulder SLAP tear JAY GONSALES MD Sep 29, 2022 07:41
[2022-09-29] MEDS ORDERED: BUPIVACAINE 0.25% 30 ML (SENSORCAINE) VIAL ONE (07:42)
[2022-09-29] MEDS ORDERED: morphine PF (DURAMORPH) 10 MG/10 ML AMP ONE (07:42)
--- NOTE | 2022-09-29 07:42 | Progress Note-Post Operative ---
Post-Operative Progess Note Surgeon (s)/Electric Plater (s) Surgeon JAY GONSALES MD Electric Plater: Jae Garcia Pre-Operative Diagnosis right shoulder SLAP tear Post-Operative Diagnosis right shoulder SLAP and labral tears Procedure & Operative Findings Date of Procedure 09/29/22 Procedure Performed/Findings right shoulder arthroscopic biceps tenotomy and labral debridement Anesthesia Type GETA Estimated Blood Loss Estimated blood loss (mL): minimal Specimens/Packing Specimens Removed none Packing: none JAY GONSALES MD Sep 29, 2022 07:42
[2022-09-29] MEDS ORDERED: VANCOMYCIN INJECTION 1,000 MG in NS (IVPB) 250 ML IV ONE (08:15)
[2022-09-29] MEDS ORDERED: LACTATED RINGERS 1,000 ML IV PRN (08:15)
[2022-09-29] MEDS ORDERED: LIDOCAINE PF 2% 5 ML (XYLOCAINE) VIAL ONE (08:21)
[2022-09-29] MEDS ORDERED: ONDANSETRON 4 MG/2 ML (SDV) Z0FRAN ONE (08:21)
[2022-09-29] MEDS ORDERED: proPOfol 200 MG/20 ML (DIPRIVAN) VIAL IV ONE (08:21)
[2022-09-29] MEDS ORDERED: fentaNYL INJ 100 MCG/2 ML AMP ONE (08:21)
[2022-09-29] MEDS ORDERED: ROCURONIUM 10 MG/ML 5 ML SYRINGE IV ONE (08:21)
[2022-09-29] MEDS ORDERED: MIDAZOLAM 2 MG/2 ML (VERSED) VIAL ONE (08:21)
[2022-09-29] MEDS ORDERED: NEOSTIGMINE 3 MG/3 ML VIAL ONE (09:51)
[2022-09-29] MEDS ORDERED: GLYCOPYRROLATE 0.2 MG/ML (ROBINUL) 2 ML VIAL ONE (09:51)
[2022-09-29] MEDS ORDERED: SEVOFLURANE (ULTANE) 15 ML INHAL SOLN ONE (09:59)
[2022-09-29] MEDS ORDERED: morphine PF (DURAMORPH) 10 MG/10 ML AMP INJ ONE (10:02)
[2022-09-29] MEDS ORDERED: ONDANSETRON 4 MG/2 ML (SDV) Z0FRAN IVP PRN (10:15)
[2022-09-29] MEDS ORDERED: fentaNYL INJ 100 MCG/2 ML AMP IVP ONE (10:15)
--- NOTE | 2022-09-29 11:26 | Anesthesia-General Post-Op ---
General Patient Condition Mental Status/LOC: Same as Preop Cardiovascular: Satisfactory Nausea/Vomiting: Absent Respiratory: Satisfactory Pain: Controlled Complications: Absent Post Op Complications Complications None Follow Up Care/Instructions Patient Instructions None needed. Anesthesia/Patient Condition Patient Condition Patient is doing well, no complaints, stable vital signs, no apparent adverse anesthesia problems. No complications reported per nursing. RAMIRO GARVEY CRNA Sep 29, 2022 11:26
--- NOTE | 2022-09-29 16:01 | OPERATIVE REPORT ---
DATE OF SERVICE: 09/29/2022 PREOPERATIVE DIAGNOSES: 1. Right shoulder SLAP tear. 2. Right shoulder labral tear. POSTOPERATIVE DIAGNOSES: 1. Right shoulder SLAP tear. 2. Right shoulder labral tear. PROCEDURES: 1. Right shoulder arthroscopic biceps tenotomy. 2. Right shoulder arthroscopic labral debridement. SURGEON: Dr. Wells. MAINTENANCE ADVISOR: Jae Garcia, who assisted throughout the procedure and closed the incisions. ANESTHESIA: General endotracheal by Eddi Huggins CRNA. ESTIMATED BLOOD LOSS: Minimal. DRAINS: None. COMPLICATIONS: None. POSTOPERATIVE PLAN: Sling wear for comfort with passive range of motion, progressing to active as symptoms allow. STATEMENT OF MEDICAL NECESSITY: The patient is a 46-year-old female with complaints of right shoulder pain. She had a positive [place]'s maneuver. Pain with apprehension. She has tried rest, activity modifications without relief. Due to functional impairment and failure to improve with conservative measures, the patient elected to proceed with surgical intervention. Examination under anesthesia revealed forward elevation 170 degrees, external rotation of 80 degrees, internal rotation of 70 degrees. ARTHROSCOPIC FINDINGS: Demonstrated an intact rotator cuff throughout. No glenoid or humeral head articular wear was noted. She had a type 2 SLAP tear. She had a labral tear anteriorly from the 12 to 2 o'clock positions. The remaining labrum was intact. DESCRIPTION OF PROCEDURE: After risks and benefits of procedure were discussed and questions were answered and informed consent was signed and placed on the chart, the operative site was confirmed in the preoperative holding area initialed by the surgeon. The patient was then transported to the operating room and after adequate level of general endotracheal anesthetic was obtained, timeout was called, confirming the operative site. Examination under anesthesia was performed with the above findings noted. The right shoulder and upper extremity were prepped and draped in the usual sterile fashion. The shoulder joint was injected with 20 mL of fluid. Standard posterior portal was placed under direct visualization. An anterior portal was created in the interval between the biceps, subscapularis and glenoid. The biceps anchor was released. Stump was debrided with a shaver. The anterior labral flap was debrided with a shaver back to a stable edge. Shoulder joint was copiously irrigated. The portal sites were closed with 4-0 nylon in simple interrupted fashion. Shoulder was injected with Duramorph. The portal sites were infiltrated with plain Marcaine. A soft dressing and sling were applied, and the patient was transferred to recovery room awake and in stable condition. Job ID: [id number] DocumentID: [id number] Dictated Date: 09/29/2022 10:00:17 Digital Marketing Coordinator Date: 09/29/2022 16:00:00 Dictated By: JAY WELLS MD
== END 2022-09-29 12:35 | disposition home or self-care (01) ==
LOC: SDC 07:25
PROVIDERS: ATTEND Orthopaedic Surgery
DX: S43.431A Superior glenoid labrum lesion of right shoulder, initial encounter (principal); X58.XXXA Exposure to other specified factors, initial encounter
CPT/HCPCS: 87081

== ENCOUNTER 2022-10-25 10:04 | Outpatient (RCR) | payer MEDICARE, MEDICAID | END 2022-10-26 | disposition home or self-care (01) | PROVIDERS: ATTEND Orthopaedic Surgery | DX: M75.121 Complete rotator cuff tear or rupture of right shoulder, not specified as traumatic (principal) ==

== ENCOUNTER → 2022-11-18 | Outpatient (CLI) | payer MEDICARE, MEDICAID ==
[2022-11-18 14:55] VITALS: BP 111/48
== END ==
LOC: SDC 14:45
PROVIDERS: ATTEND Nurse Practitioner Family
DX: Z45.2 Encounter for adjustment and management of vascular access device (principal)
CPT/HCPCS: 96523

== ENCOUNTER 2022-11-22 13:18 | Outpatient (RCR) | payer MEDICARE, MEDICAID | END 2022-11-23 | disposition home or self-care (01) | PROVIDERS: ATTEND Orthopaedic Surgery | DX: M75.121 Complete rotator cuff tear or rupture of right shoulder, not specified as traumatic (principal); I10 Essential (primary) hypertension ==

== ENCOUNTER 2022-11-24 05:36 | Outpatient (CLI) | payer MEDICARE, MEDICAID ==
[~2022-11-24] VITALS: Ht 149.9 cm; Wt 102.5 kg
== END 2022-11-24 10:27 | disposition home or self-care (01) ==
LOC: PREOP 05:36
PROVIDERS: ATTEND Surgery
DX: Z01.818 Encounter for other preprocedural examination (principal)

== ENCOUNTER 2022-12-01 12:22 | Day surgery (SDC) | payer MEDICARE, MEDICAID ==
[~2022-12-01] VITALS: Ht 150 cm; Wt 102.5 kg
[2022-12-01] MEDS ORDERED: ONDANSETRON 4 MG/2 ML (SDV) Z0FRAN IVP PRN (12:30)
[2022-12-01] MEDS ORDERED: ONDANSETRON 4 MG (ZOFRAN) ORAL DISSOLVE TAB PO PRN (12:30)
--- NOTE | 2022-12-01 12:30 | Progress Note-Pre Operative ---
Pre-Operative Progress Note Date of Available H&P: Dec 01, 2022 Date H&P Reviewed: Dec 01, 2022 Time H&P Reviewed: 12:25 History & Physical: No changes noted Pre-Operative Diagnosis: GERD, dysphagia, diarrhea, hx crohns MARGO FRANCISCO MD Dec 01, 2022 12:30
--- NOTE | 2022-12-01 12:31 | Discharge Inst-Surgical ---
D/C Lap Instructions-NOLAN Follow Up Activity as tolerated High Fiber Diet 25g or more per day Avoid Alcohol, Caffeine, Spicy [place] and Acid foods. Drink 64 fluid oz or more of fluids per day. Symptoms to Report: Fever over 101 degree F, Nausea/Vomiting If any problems/questions: Contact your physician or go to Emergency Room MARGO FRANCISCO MD Dec 01, 2022 12:31
[2022-12-01] MEDS ORDERED: LACTATED RINGERS 1,000 ML IV ONE (12:35)
[2022-12-01] MEDS ORDERED: HURRICAINE EXT TUBE (BENZOCAINE) ONE (12:35)
[2022-12-01] MEDS ORDERED: LIDOCAINE JELLY 2% 6 ML SYRINGE ONE (12:49)
[2022-12-01] MEDS ORDERED: LACTATED RINGERS 1,000 ML IV STA (12:52)
[2022-12-01 13:00] VITALS: BP 130/88
[2022-12-01] MEDS ORDERED: HURRICAINE EXT TUBE (BENZOCAINE) XX PRN (13:00)
[2022-12-01] MEDS ORDERED: LIDOCAINE JELLY 2% 6 ML SYRINGE MM PRN (13:00)
[2022-12-01] MEDS ORDERED: PROPOFOL INJECTION 50 ML IV ONE (13:49)
[2022-12-01 14:43] VITALS: BP 120/64
[2022-12-01 14:48] VITALS: BP 127/60
[2022-12-01 14:53] VITALS: BP 112/61
[2022-12-01 14:55] VITALS: BP 112/61
--- NOTE | 2022-12-01 14:59 | Anesthesia-General Post-Op ---
MAC Patient Condition Mental Status/LOC: Same as Preop Cardiovascular: Satisfactory Nausea/Vomiting: Absent Respiratory: Satisfactory Pain: Controlled Complications: Absent Post Op Complications Complications None Follow Up Care/Instructions Patient Instructions None needed. Anesthesiology Discharge Order Discharge Order Patient is doing well with stable vital signs, no apparent adverse anesthesia problems. No complications reported per nursing. LIZA MORGAN DO Dec 01, 2022 14:59
--- NOTE | 2022-12-01 15:01 | Progress Note-Post Operative ---
Post-Operative Progess Note Surgeon (s)/Marine Equipment Preservation Inspector (s) Surgeon MARGO FRANCISCO MD Marine Equipment Preservation Inspector: none Pre-Operative Diagnosis GERD, dysphagia, diarrhea, hx crohns Post-Operative Diagnosis reflux esophagitis(grade B-C), mild dist esoph stricture, intact wrap, moderate gastritis, mild duodenitis. chronic stage 2 ext and int hemorrhoids, douglas-proctitis and colitis, no masses. Procedure & Operative Findings Date of Procedure 12/01/22 Procedure Performed/Findings EGD with bx. Colonoscopy with bx. Anesthesia Type mac Estimated Blood Loss Estimated blood loss (mL): minimal Specimens/Packing Specimens Removed multiple upper and lower biopsies. MARGO FRANCISCO MD Dec 01, 2022 15:01
[2022-12-01] MEDS ORDERED: HEParin (CENTRAL IV FLUSH) 500 UNIT/5 ML SYR ONE (15:23)
[2022-12-01 15:33] VITALS: BP 112/61
--- NOTE | 2022-12-01 23:29 | OPERATIVE REPORT ---
DATE OF SERVICE: 12/01/2022 ATTENDING PRIMARY APPLICATIONS INSTRUCTOR: Maria G Morrison APRN. PREOPERATIVE DIAGNOSES: Gastroesophageal reflux disease, dysphagia, diarrhea, history of Crohn's disease. POSTOPERATIVE DIAGNOSES: Reflux esophagitis between Milam grade B and C with a mild distal esophageal stricture, intact previous hiatal hernia repair, moderate gastritis, mild duodenitis, chronic stage II external and internal hemorrhoids, pancolitis and proctitis. PROCEDURE: 1. EGD with multiple biopsies and balloon dilatation. 2. Colonoscopy with multiple biopsies. SURGEON: Margo Francisco MD ANESTHESIA: Monitored anesthesia care. ESTIMATED BLOOD LOSS: Minimal. FINDINGS: Reflux esophagitis between Milam grade B and C with a mild distal esophageal stricture, intact previous hiatal hernia repair, moderate gastritis, mild duodenitis, chronic stage II external and internal hemorrhoids, pancolitis, proctitis. DISPOSITION: The patient tolerated the procedure well. INDICATIONS: The patient is a 46-year-old female known to us. She has had a longstanding history of gastroesophageal reflux disease, crampy abdominal pain, diarrhea as well as anemia and has a known history of Crohn's disease as well. She has been on a number of different medications; however, has had to discontinue a multitude of them due to either side effects of the medications or insurance coverage. She was recently seen in the emergency department and was having fatigue and noticed having looser stools mixed with blood. Her hemoglobin was low and she was given 2 units of packed red blood cells at the time. In 05/2022, she had seen her scientific writer at [facility] and recommendation was to proceed with an EGD as well as colonoscopy and it was also recommended to proceed with biopsies of the stomach, duodenum, ileum and random biopsies of the colon for the inflammatory bowel disease as well as for cytomegalovirus. DESCRIPTION OF PROCEDURE: The patient was brought to the endoscopy suite and laid in the left lateral decubitus position. After adequate IV pain and sedative medications and monitored anesthesia care, the mouthpiece was applied. The endoscope was placed in the mouth, visualized the pharynx and hypopharyngeal region. Vocal cords, epiglottis and vallecula identified and appeared to be normal. The endoscope was then gently intubated into the esophageal opening and esophagus insufflated. The endoscope was then advanced through the first, second and third portions of esophagus at the level of the GE junction, a reflux esophagitis between Milam grade B and C was identified as well as what appeared to be a mild distal esophageal stricture. A biopsy was taken of the GE junction with forceps and placed in formalin with visualization of good hemostasis. The endoscope was then advanced in the stomach and endoscope retroflexed visualizing an intact previous hiatal hernia repair and antireflux procedure. There was moderate gastritis. No formal ulcerations, polyps or any neoplasms. Two biopsies were taken in the antrum, one sent in formalin and the other sent in a viral culture for cytomegalovirus. The endoscope was then advanced through the duodenum where mild to moderate duodenitis was identified and a biopsy was taken with forceps and sent for viral culture. Good hemostasis was observed. The endoscope was then slowly withdrawn while taking second look and suctioning residual air with no additional findings. The balloon was placed in the stomach and pulled back to the area of the stricture. We then proceeded with graded dilatation in a stepwise fashion from 2, 4, then eventually 6 atmospheres of pressure with moderate resistance or 20 mm in luminal diameter and left this in place for approximately 60 seconds. The balloon was then desufflated and removed with visualization of good hemostasis as well as no mucosal tears. A digital rectal examination was performed which revealed chronic stage II external and internal hemorrhoids. There were no signs of redness, erythema, or any fistulous tracts identified in the perianal region. Normal sphincter tone itself and there were no palpable masses. The endoscope was then intubated into the anus, rectum gently insufflated. Immediately, a diffuse proctitis was identified. We then proceeded to advance the scope through the sigmoid colon, descending colon, transverse colon, ascending colon to the cecum. A pancolitis was identified. We were able to intubate the terminal ileum where there was found to be a mild terminal ileitis and a biopsy was taken and sent in a viral culture. We then proceeded to biopsy the cecum, descending colon and the rectum and these were sent in formalin. The endoscope was slowly withdrawn while taking second look and suctioning of residual air with no additional findings. No tumors identified. The patient tolerated the procedure well. It appears that she does have some level of reflux esophagitis as well as gastritis and stricture, which was stretched 20 mm in luminal diameter. For now, we will just have her continue with medical management with small and more frequent meals, avoidance of eating at night as well as head elevation while lying supine. She also needs to avoid caffeinated beverages, spicy, greasy and acidic foods and proceed with any form of weight loss modality. She is currently on Protonix, which we will have her continue. She also does have a chronic active pancolitis and proctitis. Again, multiple biopsies were taken and sent in viral solution to check for cytomegalovirus. Also, multiple random biopsies were taken of the colon to look for any neoplastic changes. She will need to be referred back to her scientific writer to try some forms of inflammatory bowel disease medications to decrease the inflammatory changes and hopefully keep them at bay and prevent her symptomatology of diarrhea and blood loss anemia. Job ID: [id number] DocumentID: [id number] Dictated Date: 12/01/2022 14:52:04 Foreign Exchange Dealer Date: 12/01/2022 23:28:00 Dictated By: MARGO FRANCISCO MD MTDD
== END 2022-12-01 15:46 | disposition home or self-care (01) ==
LOC: ENDO 12:22
PROVIDERS: ATTEND Surgery
DX: K52.9 Noninfective gastroenteritis and colitis, unspecified (principal); D12.8 Benign neoplasm of rectum; K21.00 Gastro-esophageal reflux disease with esophagitis, without bleeding; K22.2 Esophageal obstruction; K64.4 Residual hemorrhoidal skin tags; K64.1 Second degree hemorrhoids; K29.70 Gastritis, unspecified, without bleeding; K29.80 Duodenitis without bleeding; E66.01 Morbid (severe) obesity due to excess calories; K50.90 Crohn's disease, unspecified, without complications; K62.89 Other specified diseases of anus and rectum; Z68.42 Body mass index [BMI] 45.0-49.9, adult

== ENCOUNTER 2022-12-02 11:21 | Outpatient (CLI) | payer MEDICARE, MEDICAID ==
[~2022-12-02] VITALS: Ht 149.9 cm; Wt 112.0 kg
[2022-12-02] MEDS ORDERED: CATHETER FLUSH 10 ML SYR IVP PRN (12:00)
[2022-12-02] MEDS ORDERED: NORMAL SALINE IV ONE (12:00)
[2022-12-02] MEDS ORDERED: diphenhydrAMINE 50 MG/ML INJ (BENADRYL) IV PRN (12:00)
[2022-12-02] MEDS ORDERED: EPINEPHrine INJECTION 1 MG/ML AMP INJ PRN (12:00)
[2022-12-02] MEDS ORDERED: ACETAMINOPHEN 500 MG TAB (TYLENOL) PO PRN (12:00)
[2022-12-02] MEDS ORDERED: methylPREDNISolone 125 MG (Solu-MEDROL) VIAL IV PRN (12:00)
[2022-12-02] MEDS ORDERED: [UNRECOGNIZED DRUG - OTHER] IV ONE (12:00)
[2022-12-02 13:20] VITALS: BP 106/66
== END 2022-12-02 13:20 ==
LOC: SDC 11:21
PROVIDERS: ATTEND Internal Medicine
DX: K50.90 Crohn's disease, unspecified, without complications (principal)
CPT/HCPCS: 96365

== ENCOUNTER → 2022-12-24 | Outpatient (RCR) | payer MEDICARE, MEDICAID | END | disposition home or self-care (01) | PROVIDERS: ATTEND Orthopaedic Surgery | DX: M75.121 Complete rotator cuff tear or rupture of right shoulder, not specified as traumatic (principal); I10 Essential (primary) hypertension ==

== ENCOUNTER 2023-01-06 12:09 | Outpatient (RCR) | payer MEDICARE, MEDICAID | END 2023-01-23 | LOC: LAB 12:09 → EDSTATUS 13:13 | PROVIDERS: ATTEND Internal Medicine | DX: K50.80 Crohn's disease of both small and large intestine without complications (principal) ==

== ENCOUNTER → 2023-01-06 | Outpatient (CLI) | payer MEDICARE, MEDICAID ==
[2023-01-06 12:37] LABS: BASOPHILS % (AUTO) 0 % (0-10); EOSINOPHILS % (AUTO) 0 % (0-10); HEMATOCRIT 38 % (35-52); HEMOGLOBIN 11.6 g/dL (11.5-16.0); LYMPHOCYTES # (AUTO) 1.5 10^3/uL (1.0-4.0); LYMPHOCYTES % (AUTO) 17 % (12-44); MEAN CORPUSCULAR HEMOGLOBIN 25 pg (25-34); MEAN CORPUSCULAR HGB CONC 31 g/dL (32-36); MEAN CORPUSCULAR VOLUME 83 fL (80-99); MEAN PLATELET VOLUME 10.9 fL (9.0-12.2); MONOCYTES # (AUTO) 0.4 10^3/uL (0.0-1.0); MONOCYTES % (AUTO) 5 % (0-12); NEUTROPHILS # (AUTO) 6.8 10^3/uL (1.8-7.8); NEUTROPHILS % (AUTO) 78 % (42-75); PLATELET COUNT 207 10^3/uL (130-400); WHITE BLOOD COUNT 8.7 10^3/uL (4.3-11.0)
[2023-01-06 12:57] LABS: ALBUMIN 4.2 GM/DL (3.2-4.5); POTASSIUM 4.3 MMOL/L (3.6-5.0)
[2023-01-06 12:58] LABS: CALCIUM 9.9 MG/DL (8.5-10.1)
[2023-01-06 12:59] LABS: TOTAL PROTEIN 7.4 GM/DL (6.4-8.2)
[2023-01-06 13:01] LABS: BILIRUBIN,TOTAL 0.2 MG/DL (0.1-1.0)
[2023-01-06 13:03] LABS: CREATININE SERUM 1.32 MG/DL (0.60-1.30)
== END ==
LOC: LAB 12:12
DX: E16.2 Hypoglycemia, unspecified (principal); K50.00 Crohn's disease of small intestine without complications
CPT/HCPCS: 36415; 80053; 83036; 85025; 86141; 86480

== ENCOUNTER → 2023-01-06 | Outpatient (CLI) | payer MEDICARE, MEDICAID ==
[~2023-01-06] VITALS: Wt 112.0 kg
[2023-01-06 14:55] VITALS: BP 95/72
== END ==
LOC: SDC 14:29
PROVIDERS: ATTEND Nurse Practitioner Family
DX: Z45.2 Encounter for adjustment and management of vascular access device (principal)
CPT/HCPCS: 96523

== ENCOUNTER → 2023-01-06 | Outpatient (CLI) | payer MEDICARE, MEDICAID ==
--- NOTE | 2023-01-06 15:29 | Diagnostic Imaging Report ---
INDICATION: Routine screening. COMPARISON: 01/21/2017. TECHNIQUE: 2D and 3D bilateral screening mammography was performed with CAD. FINDINGS: Scattered fibroglandular densities are identified bilaterally. There are benign calcifications scattered throughout both breasts. No dominant mass or malignant-appearing microcalcifications are seen. The axillae are unremarkable. IMPRESSION: No mammographic features suspicious for malignancy are identified. ACR BI-RADS Category 2: Benign findings. Result letter will be mailed to the patient. Note: At least 10% of breast cancer is not imaged by mammography. Dictated by: Dictated on workstation # [id number]
== END ==
LOC: RAD 12:03
PROVIDERS: ATTEND Surgery
DX: Z12.31 Encounter for screening mammogram for malignant neoplasm of breast (principal)
CPT/HCPCS: 77063; 77067

== ENCOUNTER 2023-01-20 11:09 | Outpatient (RCR) | payer MEDICARE, MEDICAID | END 2023-01-23 | disposition home or self-care (01) | PROVIDERS: ATTEND Orthopaedic Surgery | DX: M75.121 Complete rotator cuff tear or rupture of right shoulder, not specified as traumatic (principal); I10 Essential (primary) hypertension ==

== ENCOUNTER → 2023-02-15 | Outpatient (CLI) | payer MEDICARE, MEDICAID ==
[~2023-02-15] VITALS: Ht 149 cm; Wt 106.3 kg
[~2023-02-15] MED LIST changes: +VIBE75TA PO
[2023-02-15 10:00] VITALS: BP 104/67
== END ==
LOC: SDC 09:42
PROVIDERS: ATTEND Nurse Practitioner Family
DX: Z45.2 Encounter for adjustment and management of vascular access device (principal)
CPT/HCPCS: 96523

== ENCOUNTER → 2023-02-15 | Outpatient (CLI) | payer MEDICARE, MEDICAID ==
--- NOTE | 2023-02-15 15:50 | Diagnostic Imaging Report ---
INDICATION: 47-year-old asymptomatic postmenopausal female COMPARISON: None available. FINDINGS: AP Spine L1-L4: [BMD (g/cm2): 0.800] [T-Score: -3.3] [Z-Score: -4.2] [BMD Previous: NA] [BMD % Change: NA] LT Hip Neck: [BMD (g/cm2): 0.657] [T-Score: -2.7] [Z-Score: -2.7] LT Hip Total: [BMD (g/cm2):0.800] [T-Score:-1.6] [Z-Score: -2.0] [BMD Previous: NA] [BMD % Change: NA] RT Hip Neck: [BMD (g/cm2):0.687] [T-Score:-2.5] [Z-Score:-2.5] RT Hip Total: [BMD (g/cm2):0.786] [T-score:-1.8] [Z-Score:-2.2] [BMD Previous:NA] [BMD % Change:NA] *Indicates significant change from prior examination based on 95% confidence level. World Health Organization criteria for BMD interpretation classify patients as Normal (T-score at or above -1.0), Osteopenic (T-score between -1.0 and -2.5) or Osteoporotic (T-score at or below -2.5). LIMITATIONS AND MODIFICATION: None. FRACTURE RISK (FRAX SCORE): Not applicable as patient meets criteria for osteoporosis. IMPRESSION: 1. Osteoporosis. 2. Baseline examination. 3. See below National Osteoporosis Foundation guidelines on when to potentially initiate pharmacologic therapy. Based on the National Osteoporosis Foundation Guidelines, pharmacologic treatment should be initiated in any of the following, unless clinical conditions suggest otherwise: * Any patient with prior fragility fracture of the hip or vertebrae. A spine fracture indicates 5X risk for subsequent spine fracture and 2X risk for subsequent hip fracture. * Osteoporosis (T-score <-2.5). * Postmenopausal women and men age 50 and older with low bone mass/osteopenia (T-score between -1.0 and -2.5) by DXA and 10-year major osteoporotic fracture greater than 20% or a 10-year probability of hip fracture greater than 3%. These fracture risks are supplied above in the FRAX score, if applicable. * Clinician judgement and/or patient preferences may indicate treatment for people with 10-year fracture probabilities above or below these levels. Dictated by: Dictated on workstation # [id number]
== END ==
LOC: RAD 09:09
PROVIDERS: ATTEND Internal Medicine
DX: M81.0 Age-related osteoporosis without current pathological fracture (principal); K50.80 Crohn's disease of both small and large intestine without complications; E55.9 Vitamin D deficiency, unspecified; Z92.241 Personal history of systemic steroid therapy
CPT/HCPCS: 77080

== ENCOUNTER 2023-02-22 09:09 | Outpatient (RCR) | payer MEDICARE, MEDICAID | END 2023-02-23 | disposition home or self-care (01) | PROVIDERS: ATTEND Orthopaedic Surgery | DX: M75.121 Complete rotator cuff tear or rupture of right shoulder, not specified as traumatic (principal); I10 Essential (primary) hypertension ==

== ENCOUNTER → 2023-03-25 | Outpatient (RCR) | payer MEDICARE, MEDICAID | END | disposition home or self-care (01) | PROVIDERS: ATTEND Orthopaedic Surgery | DX: M75.121 Complete rotator cuff tear or rupture of right shoulder, not specified as traumatic (principal); I10 Essential (primary) hypertension ==

== ENCOUNTER → 2023-03-31 | Outpatient (CLI) | payer MEDICARE, MEDICAID ==
[2023-03-31 11:00] VITALS: BP 106/77
== END ==
LOC: SDC 10:53
PROVIDERS: ATTEND Nurse Practitioner Family
DX: Z45.2 Encounter for adjustment and management of vascular access device (principal)
CPT/HCPCS: 96523

== ENCOUNTER → 2023-04-04 | Outpatient (CLI) | payer MEDICARE, MEDICAID | LOC: LAB 11:22 | PROVIDERS: ATTEND Internal Medicine | DX: K50.90 Crohn's disease, unspecified, without complications (principal) | CPT/HCPCS: 36415 ==

== ENCOUNTER 2023-04-22 10:31 | Outpatient (RCR) | payer MEDICARE, MEDICAID | END 2023-04-22 12:42 | disposition home or self-care (01) | PROVIDERS: ATTEND Orthopaedic Surgery | DX: M75.121 Complete rotator cuff tear or rupture of right shoulder, not specified as traumatic (principal); I10 Essential (primary) hypertension; Z98.890 Other specified postprocedural states ==

== ENCOUNTER 2023-05-04 08:51 | Day surgery (SDC) | payer MEDICARE, MEDICAID ==
[~2023-05-04] VITALS: Ht 149 cm; Wt 104.0 kg
[2023-05-04] MEDS ORDERED: LACTATED RINGERS 1,000 ML IV STA (09:21)
[2023-05-04] MEDS ORDERED: LIDOCAINE JELLY 2% 6 ML SYRINGE MM PRN (09:30)
[2023-05-04 09:38] VITALS: BP 126/93
[2023-05-04] MEDS ORDERED: ONDANSETRON 4 MG/2 ML (SDV) Z0FRAN ONE (10:57)
[2023-05-04] MEDS ORDERED: PROPOFOL INJECTION 50 ML IV ONE (10:59)
[2023-05-04] MEDS ORDERED: FAMOTIDINE INJ 20MG/2ML VIAL IV ONE (11:00)
[2023-05-04] MEDS ORDERED: ONDANSETRON 4 MG/2 ML (SDV) Z0FRAN IV ONE (11:00)
--- NOTE | 2023-05-04 12:05 | Progress Note-Pre Operative ---
Pre-Operative Progress Note Date of Available H&P: May 04, 2023 Date H&P Reviewed: May 04, 2023 Time H&P Reviewed: 11:00 History & Physical: No changes noted Pre-Operative Diagnosis: rectal bleed MARGO FRANCISCO MD May 04, 2023 12:05
--- NOTE | 2023-05-04 12:08 | Discharge Inst-Surgical ---
D/C Lap Instructions-NOLAN Follow Up Appt Activity as tolerated High Fiber Diet 25g or more per day Avoid Alcohol, Caffeine, Spicy [place] and Acid foods. Drink 64 fluid oz or more of fluids per day. Symptoms to Report: Fever over 101 degree F, Nausea/Vomiting If any problems/questions: Contact your physician or go to Emergency Room MARGO FRANCISCO MD May 04, 2023 12:08
[2023-05-04] MEDS ORDERED: LIDOCAINE JELLY 2% 6 ML SYRINGE ONE (12:14)
[2023-05-04] MEDS ORDERED: ONDANSETRON 4 MG/2 ML (SDV) Z0FRAN IVP PRN (12:15)
[2023-05-04] MEDS ORDERED: ONDANSETRON 4 MG (ZOFRAN) ORAL DISSOLVE TAB PO PRN (12:15)
[2023-05-04 12:50] VITALS: BP 80/52
[2023-05-04 12:55] VITALS: BP 112/71
[2023-05-04 13:00] VITALS: BP 104/77
[2023-05-04 13:05] VITALS: BP 116/78
--- NOTE | 2023-05-04 13:08 | Progress Note-Post Operative ---
Post-Operative Progess Note Surgeon (s)/Agricultural Engineering Technologist (s) Surgeon MARGO FRANCISCO MD Agricultural Engineering Technologist: none Pre-Operative Diagnosis rectal bleed Post-Operative Diagnosis pancolitis and proctitis. Procedure & Operative Findings Date of Procedure 05/04/23 Procedure Performed/Findings colonoscopy with bx. Anesthesia Type mac Estimated Blood Loss Estimated blood loss (mL): minimal Specimens/Packing Specimens Removed cecum, asc/transverse/desc colon, rectum MARGO FRANCISCO MD May 04, 2023 13:08
--- NOTE | 2023-05-04 13:23 | Anesthesia-General Post-Op ---
MAC Patient Condition Mental Status/LOC: Same as Preop Cardiovascular: Satisfactory Nausea/Vomiting: Absent Respiratory: Satisfactory Pain: Controlled Complications: Absent Post Op Complications Complications None Follow Up Care/Instructions Patient Instructions None needed. Anesthesiology Discharge Order Discharge Order Patient is doing well, no complaints, stable vital signs, no apparent adverse anesthesia problems. No complications reported per nursing. JUDITH GEE CRNA May 04, 2023 13:23
[2023-05-04 15:04] VITALS: BP 116/78
--- NOTE | 2023-05-04 15:46 | HISTORY AND PHYSICAL ---
DATE OF SERVICE: 05/04/2023 ATTENDING [facility] TECHNICIAN: Andressa Cartagena APRN. HISTORY OF PRESENT ILLNESS: The patient is a 47-year-old female well known to us. She has a longstanding history of gastroesophageal reflux disease, crampy abdominal pain, loose stools, anemia and history of Crohn's disease. She has been on a number of different medications in the past and has had a number of different side effects from this as well as difficulty with insurance coverage of some medications. We had last done an EGD on her on 12/01/2022 due to dysphagia. She was found to have a mild distal esophageal stricture and underwent a balloon dilatation. She is also seeing zipper trimmer at [facility] and is scheduled for another visit in June of this year. The patient is currently on Stelara subcutaneous 1 time a month. She reports that with the Stelara she only has episodes of crampy abdominal and rectal bleeding approximately 4 times a year. She states that in the past week to week and a half, she has had significant rectal bleeding, which is initially darker in color; however, has become bright red. She states that she also has had some mild crampy abdominal pain. She states that the amount of bleeding is rather more significant and is new for her in terms of volume. PAST MEDICAL HISTORY: Crohn's disease, migraine headaches, seizure disorder, environmental allergies, asthma, gastroesophageal reflux disease, history of a distal esophageal stricture, hypercholesterolemia, ADHD, hypertension, Crohn's disease, irritable bowel syndrome, overactive bladder, obesity. PAST SURGICAL HISTORY: Total hysterectomy in 2007, laparoscopic cholecystectomy 2001, laparoscopic appendectomy 2003, laparoscopic Hill's gastropexy 2002, [place] implantable catheter placement 2007, 2018, 04/2021. Bilateral heel spur excision, right shoulder surgery 09/29/2022. ALLERGIES: SULFA, ANTIHISTAMINES, BETA-BLOCKERS, CODEINE, [____] ESTRADIOL, TETRACYCLINE, VALPROIC ACID, LATEX, CLINDAMYCIN, PROMETHAZINE, KEFLEX, AMOXICILLIN, ATENOLOL, MUCINEX, DEPAKOTE, LEVAQUIN, ZITHROMAX, MACROBID, LITHIUM. MEDICATIONS: Stelara, Strattera, VESIcare, spironolactone, amitriptyline, meclizine, Zofran, Elmiron, verapamil, montelukast, estradiol, buspirone, loratadine, dicyclomine, albuterol MDI, topiramate, budesonide 3 mg every other day, Protonix 40 mg daily. SOCIAL HISTORY: Negative smoke, negative alcohol. FAMILY HISTORY: Noncontributory. VITAL SIGNS: Current weight 230 pounds at 4 feet 11 inches. Blood pressure 132/64. REVIEW OF SYSTEMS: Well-nourished female, currently in no acute distress. She is not experiencing shortness of breath or difficulty breathing. No chest pain, palpitations, diaphoresis. Intermittent episodes of nausea, no vomiting with longstanding history of crampy abdominal pain; however, has had crampy abdominal pain now for the past 10 days with rectal bleeding, which first started out as more of a dark maroon color. However, has become more red in nature. She states that this has happened many times before. However, she has never had this long duration of the rectal bleeding as well as the volume of blood. No fever, chills, no recent inadvertent weight loss. All other review of systems negative. PHYSICAL EXAMINATION: CHEST: Clear. Good breath sounds bilaterally. HEART: Regular. No murmurs. EXTREMITIES: No lower extremity edema. Negative Homans sign. HEENT: No scleral icterus. No cervical lymphadenopathy. ABDOMEN: Soft, nondistended. There is mild discomfort in the mid abdominal region upon deep palpation. No peritoneal signs. No hernias. SKIN: Warm, dry. ASSESSMENT AND PLAN: A 47-year-old female with acute exacerbation of Crohn's disease with symptomatic crampy abdominal pain; however, persistent bleeding. We are unsure of the etiology of this except for the fact of worse episode of inflammatory changes related to her Crohn's disease. Due to the fact that she has been persistently bleeding, we will proceed with a colonoscopy for diagnosis as well as possible interventional modalities. Job ID: [id number] DocumentID: [id number] Dictated Date: 05/03/2023 16:10:55 Ground Crewman Mission Support Date: 05/03/2023 16:35:00 Dictated By: MARGO FRANCISCO MD
--- NOTE | 2023-05-04 19:22 | OPERATIVE REPORT ---
DATE OF SERVICE: 05/04/2023 ATTENDING PRIMARY TROLLEY COLLECTOR: Andressa Cartagena APRN PREOPERATIVE DIAGNOSIS: Persistent rectal bleeding. POSTOPERATIVE DIAGNOSIS: Pancolitis and proctitis. PROCEDURE: Colonoscopy with biopsy. SURGEON: Margo Francisco M.D. ANESTHESIA: Monitored anesthesia care. ESTIMATED BLOOD LOSS: Minimal. FINDINGS: Pancolitis and proctitis. DISPOSITION: The patient tolerated the procedure well. INDICATIONS: The patient is a 47-year-old female well known to us. She has a longstanding history of gastroesophageal reflux disease, crampy abdominal pain, loose stools, anemia and Crohn's disease. She has been on a number of different medications in the past, which had a number of different side effects from this as well as difficulty with insurance coverage of some medications as well. We had done her last EGD on 12/01/2022 due to dysphagia and she was found to have a mild distal esophageal stricture and underwent a balloon dilatation. On today's office visit, she reports that she has had persistent rectal bleeding, which is more for her. She is seeing a retail representative at [facility] and states that she is scheduled for endoscopy in June of this year. She is currently on Stelara subcutaneous 1 time monthly. She reports that with the Stelara, she normally has crampy abdominal pain and rectal bleeding approximately 4 times a year; however, for the past 2 weeks, she has had significant rectal bleeding, which was initially dark in color; however, became more bright red multiple times a day. DESCRIPTION OF PROCEDURE: The patient was brought to the operating room, laid supine on the table. After adequate IV pain and sedative medications and monitored anesthesia care, a digital rectal examination was performed. Chronic stage II external and internal hemorrhoids were identified, not actively edematous nor inflamed and no bleeding. There were no perianal inflammatory changes, abscesses or any fistulous tracts. Normal sphincter tone was felt and there were no palpable masses. The endoscope was then intubated into the anus and rectum gently insufflated. Immediately, a significant proctitis identified with mucus secretions and ulcerations throughout. The endoscope was then advanced through the sigmoid, descending, transverse colon, ascending colon to the cecum where the entire colon was inflamed throughout with similar changes. We then proceeded to do biopsies with biopsy forceps at the level of the cecum, ascending colon, transverse colon, descending colon, and the rectum. While withdrawing the endoscope, residual air was suctioned out. The patient tolerated the procedure well. It appears that she has acute flareup of her Crohn's disease and continues to be symptomatic and we will start her on prednisone 60 mg daily. We will then have her follow up in the office in approximately 2 weeks and if this does improve, we will proceed with tapering of the steroids. We will also recommend that she continue with her current medication regimen as well as her followup to [facility] as well. Job ID: [id number] DocumentID: [id number] Dictated Date: 05/04/2023 13:01:08 Tower Hoist Operator Date: 05/04/2023 19:19:00 Dictated By: MARGO FRANCISCO MD
== END 2023-05-04 15:04 | disposition home or self-care (01) ==
LOC: ENDO 08:51
PROVIDERS: ATTEND Surgery
DX: K52.9 Noninfective gastroenteritis and colitis, unspecified (principal); K62.5 Hemorrhage of anus and rectum; K62.89 Other specified diseases of anus and rectum; K50.90 Crohn's disease, unspecified, without complications; K64.1 Second degree hemorrhoids; K64.4 Residual hemorrhoidal skin tags; E66.01 Morbid (severe) obesity due to excess calories; Z68.42 Body mass index [BMI] 45.0-49.9, adult
CPT/HCPCS: 88305

== ENCOUNTER 2023-05-06 09:55 | Emergency (ER) | payer MEDICARE, MEDICAID ==
[~2023-05-06] VITALS: Ht 149 cm; Wt 102.0 kg
[2023-05-06 10:00] VITALS: BP 122/86
[2023-05-06 11:30] LABS: BASOPHILS % (AUTO) 0 % (0-10); EOSINOPHILS % (AUTO) 0 % (0-10); HEMATOCRIT 41 % (35-52); HEMOGLOBIN 12.4 g/dL (11.5-16.0); LYMPHOCYTES # (AUTO) 1.3 10^3/uL (1.0-4.0); LYMPHOCYTES % (AUTO) 18 % (12-44); MEAN CORPUSCULAR HEMOGLOBIN 25 pg (25-34); MEAN CORPUSCULAR HGB CONC 30 g/dL (32-36); MEAN CORPUSCULAR VOLUME 82 fL (80-99); MEAN PLATELET VOLUME 11.5 fL (9.0-12.2); MONOCYTES # (AUTO) 0.6 10^3/uL (0.0-1.0); MONOCYTES % (AUTO) 9 % (0-12); NEUTROPHILS # (AUTO) 5.4 10^3/uL (1.8-7.8); NEUTROPHILS % (AUTO) 73 % (42-75); PLATELET COUNT 212 10^3/uL (130-400); WHITE BLOOD COUNT 7.4 10^3/uL (4.3-11.0)
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
== END 2023-05-06 11:54 | disposition home or self-care (01) ==
LOC: EDUNIT# 09:55 → ER 09:57
DX: K50.90 Crohn's disease, unspecified, without complications (principal); Z90.49 Acquired absence of other specified parts of digestive tract; Z91.040 Latex allergy status; Z79.52 Long term (current) use of systemic steroids
CPT/HCPCS: 36415; 85025; 99281

== ENCOUNTER 2023-05-22 22:35 | Emergency (ER) | payer MEDICARE, MEDICAID ==
[~2023-05-22] VITALS: Ht 149.9 cm; Wt 105.2 kg
[2023-05-22 22:55] LABS: BASOPHILS % (AUTO) 0 % (0-10); EOSINOPHILS % (AUTO) 0 % (0-10); HEMATOCRIT 33 % (35-52); HEMOGLOBIN 10.3 g/dL (11.5-16.0); LYMPHOCYTES # (AUTO) 0.5 10^3/uL (1.0-4.0); LYMPHOCYTES % (AUTO) 7 % (12-44); MEAN CORPUSCULAR HEMOGLOBIN 25 pg (25-34); MEAN CORPUSCULAR HGB CONC 31 g/dL (32-36); MEAN CORPUSCULAR VOLUME 82 fL (80-99); MEAN PLATELET VOLUME 10.7 fL (9.0-12.2); MONOCYTES # (AUTO) 0.3 10^3/uL (0.0-1.0); MONOCYTES % (AUTO) 4 % (0-12); NEUTROPHILS % (AUTO) 88 % (42-75); PLATELET COUNT 121 10^3/uL (130-400); WHITE BLOOD COUNT 6.9 10^3/uL (4.3-11.0)
[2023-05-22 23:05] LABS: INR 1.5 (0.8-1.4); POTASSIUM 3.5 MMOL/L (3.6-5.0); PROTHROMBIN TIME PATIENT 18.2 SEC (12.2-14.7)
[2023-05-22 23:06] LABS: CALCIUM 8.2 MG/DL (8.5-10.1)
[2023-05-22 23:07] LABS: TOTAL PROTEIN 5.5 GM/DL (6.4-8.2)
[2023-05-22 23:08] LABS: LYMPHOCYTES % (MANUAL) 5 %; MONOCYTES % (MANUAL) 1 %; NEUTROPHILS % (MANUAL) 94 %
[2023-05-22 23:09] LABS: ANISOCYTOSIS SLIGHT; BILIRUBIN,TOTAL 0.2 MG/DL (0.1-1.0); PLATELET CLUMPS NO PLT CLUMPS NOTED
[2023-05-22 23:11] LABS: CREATININE SERUM 1.21 MG/DL (0.60-1.30)
[2023-05-22 23:14] LABS: MAGNESIUM 1.7 MG/DL (1.6-2.4)
[2023-05-22 23:29] LABS: TSH (THYROID ANALYZER) 0.14 UIU/ML (0.35-4.94)
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
[2023-05-23 00:04] LABS: FREE T4 (FREE THYROXINE) 0.87 NG/DL (0.70-1.48)
[2023-05-23 00:35] VITALS: BP 106/79
--- NOTE | 2023-05-23 08:04 | Diagnostic Imaging Report ---
Indication: 47-year-old female multiple falls presents with left foot pain Comparisons: 03/14/2020 FINDINGS: 3 views of the left foot show no evidence of new or healing fractures, bony destruction or remodeling. IMPRESSION: No fracture or subluxation seen. There is a slightly prominent plantar calcaneal spur. Dictated by: Dictated on workstation # [id number]
--- NOTE | 2023-05-23 08:05 | Diagnostic Imaging Report ---
INDICATION: 47-year-old female with recent falls, chest pain, shortness of breath. COMPARISONS: 01/06/2022 FINDINGS: Single view of the chest shows normal heart, pleura and diaphragms. No consolidations are seen. There is no effusion or pneumothorax. There is a right subclavian Mediport stable. Soft tissues and bony thorax are unremarkable. IMPRESSION: 1. Underpenetrated film with low lung volumes due to portable technique, otherwise no acute cardiopulmonary changes. 2. Stable right subclavian Mediport. Dictated by: Dictated on workstation # [id number]
== END 2023-05-23 00:37 | disposition home or self-care (01) ==
LOC: EDUNIT# 22:35 → ER 22:36
DX: S90.32XA Contusion of left foot, initial encounter (principal); E66.01 Morbid (severe) obesity due to excess calories; R79.89 Other specified abnormal findings of blood chemistry; R94.6 Abnormal results of thyroid function studies; R60.0 Localized edema; Z74.09 Other reduced mobility; Z68.42 Body mass index [BMI] 45.0-49.9, adult; Z91.040 Latex allergy status; X58.XXXA Exposure to other specified factors, initial encounter
CPT/HCPCS: 36415; 71045; 73630; 80053; 83735; 83880; 84439; 84443; 85007; 85027; 85610; 85730; 93041

== ENCOUNTER → 2023-06-08 | Outpatient (CLI) | payer MEDICARE, MEDICAID ==
[~2023-06-08] VITALS: Ht 149.9 cm; Wt 105.2 kg
[2023-06-08 11:15] VITALS: BP 0/0
== END ==
LOC: SDC 10:44
PROVIDERS: ATTEND Nurse Practitioner Family
DX: Z45.2 Encounter for adjustment and management of vascular access device (principal)
CPT/HCPCS: 96523

== ENCOUNTER 2023-07-01 18:17 | Emergency (ER) | payer MEDICARE, MEDICAID ==
[~2023-07-01 18:17] MED LIST changes: -ESTR0.5T PO; +ESTR0.5T2 PO; -MECL-149 PO; +MECL-291 PO
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
== END 2023-07-01 18:39 | disposition left against medical advice (07) ==
LOC: EDUNIT# 18:17 → ER 18:20
DX: Z46.89 Encounter for fitting and adjustment of other specified devices (principal); E66.01 Morbid (severe) obesity due to excess calories; Z68.42 Body mass index [BMI] 45.0-49.9, adult; Z91.040 Latex allergy status

== ENCOUNTER → 2023-08-25 | Outpatient (RCR) | payer MEDICARE, MEDICAID | END | disposition home or self-care (01) | PROVIDERS: ATTEND Student in an Organized Health Care Education/Training Program | DX: R26.89 Other abnormalities of gait and mobility (principal); M23.92 Unspecified internal derangement of left knee; I10 Essential (primary) hypertension ==

== ENCOUNTER → 2023-08-25 | Outpatient (CLI) | payer MEDICARE, MEDICAID ==
[2023-08-25 11:30] LABS: ALBUMIN 4.3 GM/DL (3.2-4.5); BILIRUBIN,TOTAL 0.3 MG/DL (0.1-1.0); CALCIUM 9.4 MG/DL (8.5-10.1); CREATININE SERUM 1.72 MG/DL (0.60-1.30); TOTAL PROTEIN 7.6 GM/DL (6.4-8.2)
== END ==
LOC: LAB 10:49
PROVIDERS: ATTEND Student in an Organized Health Care Education/Training Program
DX: E78.00 Pure hypercholesterolemia, unspecified (principal)
CPT/HCPCS: 36415; 80053; 80061

== ENCOUNTER → 2023-09-02 | Outpatient (CLI) | payer MEDICARE, MEDICAID ==
[~2023-09-02] VITALS: Wt 105.2 kg
[2023-09-02 10:49] VITALS: BP 115/72
== END ==
LOC: SDC 10:35
PROVIDERS: ATTEND Student in an Organized Health Care Education/Training Program
DX: Z45.2 Encounter for adjustment and management of vascular access device (principal)
CPT/HCPCS: 96523